=== PATIENT | female | born 1955 | race Caucasian/White ===

== ENCOUNTER → 2018-01-03 07:52 | Outpatient (CLI) | payer BC, SELFPAY ==
[2018-01-03 10:05] LABS: Absolute Lymphocyte Count 1.72 X10^3/ul (0.83-4.51); Absolute Neutrophil Count 1.9 X10^3/uL (2.0-7.7); Basophil# 0.02 X10^3/uL; Basophil% 0.5 % (0-1); Eosinophil# 0.15 X10^3/uL; Eosinophils% 3.5 % (0-5); Hematocrit 40.8 % (37-47); Hemoglobin 13.7 g/dl (12.0-15.0); Lymphocyte # 1.72 X10^3/ul (4.0); Lymphocyte % 40.4 % (19-41); Mean Corp Hgb Conc 33.6 g/gl (32-36); Mean Corpuscular Hgb 31.1 pg (27.0-32.0); Mean Corpuscular Volume 92.7 fL (81-99); Mean Platelet Vol. 10.6 fl (6.2-12.0); Monocyte# 0.43 X10^3/uL; Monocyte% 10.1 % (0-10); Neutrophil # 1.94 X10^3/uL (2.7-7.7); Neutrophil % 45.5 % (47-70); Platelet Count 257 K/mm3 (150-450); RBC Distribution Width CV 12.2 % (11.6-14.6); RBC Distribution Width SD 40.7 fl (35.1-43.9); White Blood Count 4.3 K/mm3 (4.4-11.0)
[2018-01-03 10:07] LABS: POSITIVE COUNT NO; POSITIVE DIFFERENTIAL NO; POSITIVE MORPHOLOGY NO
[2018-01-03 11:40] LABS: ALB/GLOB Ratio 1.2 RATIO (0.9-2.4); AST(SGOT) 16 U/L (15-37); Alanine Aminotransfer ALT/SGPT 29 U/L (13-56); Albumin, Serum 3.9 g/dL (3.2-5.0); Alkaline Phosphatase 58 U/L (45-117); Anion Gap 6 (5-15); BUN 21 mg/dL (7-18); BUN/Creat Ratio 31.9 RATIO (10-20); Chloride 108 mmol/L (98-107); Cholesterol 164 mg/dL (200); Creatinine, Serum 0.66 mg/dL (0.55-1.02); EST Glomerular Filtration Rate 97 mL/min (>60); Est Glom Filt Rate - Afr Amer 117 mL/min (>60); Folates, (Folic Acid) > 100.00 ng/mL (3.1-55.4); Globulin 3.3 g/dL (2.2-4.2); Glucose 82 mg/dL (74-106); High Density Lipoprotein 72 mg/dL; Potassium 3.8 mmol/L (3.5-5.1); Protein, Total 7.2 g/dL (6.4-8.2); Sodium Level 144 mmol/L (136-145); Triglycerides 66 mg/dL; Very Low Density Lipoprotein 13 mg/dL (5-40)
== END ==
PROVIDERS: Family Provider Pediatrics; PCP Pediatrics; Visit Provider Pediatrics
DX: D72.819 Decreased white blood cell count, unspecified (principal); R53.83 Other fatigue; Z13.220 Encounter for screening for lipoid disorders
CPT/HCPCS: 36415; 80053; 80061; 82746; 85025

== ENCOUNTER → 2018-01-04 08:24 | Outpatient (CLI) | payer BC, SELFPAY ==
[2018-01-04 09:54] LABS: Thyroid Stim Hormone (TSH) 0.07 uIU/mL (0.358-3.74)
== END ==
PROVIDERS: Family Provider Pediatrics; PCP Pediatrics
DX: E89.0 Postprocedural hypothyroidism (principal)
CPT/HCPCS: 84443

== ENCOUNTER 2019-09-09 16:05 | Emergency (ER) | payer BC, SELFPAY ==
[2019-09-09] VITALS (7 sets, daily range): BP systolic 105–183; BP diastolic 67–99; PULSE 49–71; RESP 16–23; TEMP 36.7; O2SAT 95–100; BMI 28.6
--- NOTE | 2019-09-09 16:19 | EKG12_ITS ---
Test Reason : CP Blood Pressure : / mmHG Vent. Rate : 063 BPM Atrial Rate : 063 BPM P-R Int : 176 ms QRS Dur : 092 ms QT Int : 468 ms P-R-T Axes : 060 003 046 degrees QTc Int : 478 ms Normal sinus rhythm Normal ECG Confirmed by MARÍA BRYANT, NINOSKA ([id number]), desk editor MARÍA VIDALES ([id number] on 09/11/2019 11:05:02 AM Referred By: ALVERTO Confirmed By:NINOSKA DANIEL MD
--- NOTE | 2019-09-09 16:21 | ED.DCSUM_ITS ---
- ER Visit Summary Date of Service: 09/09/19 Chief Complaint: Chest pain History of Present Illness: The patient is a 64 F who presents with chest pain that began approximately 1 and 1/2 hours prior to arrival. Patient states she was sitting at work when the pain began. Patient states the pain is over the lower substernal area. Patient states the pain is worse when she sits and better when she lays flat. Patient admits to nausea but denies any vomiting. Patient admits to some shortness of breath. Patient denies any diaphoresis. Patient denies any cough or fevers. Patient denies any cardiac risk factors. Patient states she did have a recent travel to [place] 1-2 to 2 months ago. Physical Examination: Vital signs are stable except for an elevated blood pressure 183/99. Patient is afebrile. Patient is in no acute distress. Oral mucosa is pink and moist. Neck is supple. Trachea is midline. There is no JVD noted. Heart was regular rate and rhythm. Lungs are clear and equal bilaterally. Abdomen is soft. Bowel sounds are normal. There is some mild epigastric tenderness. There is no rebound or guarding noted. Cranial nerves II through XII are intact. There are no focal motor or sensory deficits noted. Test Results: EKG showed normal sinus rhythm with a rate of 63. There are no acute ST or T wave changes noted. CBC and basic metabolic profile were within normal limits. Lipase was normal. Troponin was normal. Portable chest x-ray was obtained. There is no acute cardiopulmonary process. CTA of the chest was obtained. There is no pulmonary embolism noted. There is no aortic dissection noted. There is a small hiatal hernia. This was interpreted by the radiologist and reviewed by myself. Emergency Department Course and Treatment: Patient was given aspirin and nitroglycerin here. Patient felt better after nitroglycerin. Patient has a HEART score of 3. Patient is at low risk for acute cardiac event. Since her symptoms began only 1-1/2 hours prior to arrival a delta troponin was obtained. This was normal. Patient was instructed to follow-up with her primary care physician in 5 to 7 days. Patient understood and was agreeable with the plan. All questions were answered. Disposition: Discharge home Impression: Chest pain This note was generated with [employer] dictation software. It may contain incorrect words, spelling, and punctuation that were not noted in review of the chart prior to signing ED Disposition - Plan for ED Patient: Disposition: Home or Assisted Living Diagnosis: Chest pain Instructions: CHEST PAIN, Uncertain Cause Referrals: La Melendez MD [Primary Care Provider] - 3-5 Days
[2019-09-09 16:30] LABS: Absolute Lymphocyte Count 2.57 X10^3/uL (0.83-4.51); Absolute Neutrophil Count 2.9 X10^3/uL (2.0-7.7); Basophil# 0.03 X10^3/uL; Basophil% 0.5 % (0-1); Eosinophil# 0.19 X10^3/uL; Hematocrit 42.3 % (37-47); Hemoglobin 13.9 g/dL (12.0-15.0); Lymphocyte # 2.57 X10^3/ul (4.0); Lymphocyte % 40.9 % (19-41); Mean Corp Hgb Conc 32.9 g/dL (32-36); Mean Corpuscular Hgb 30.8 pg (27.0-32.0); Mean Corpuscular Volume 93.6 fL (81-99); Mean Platelet Vol. 10.2 fl (6.2-12.0); Monocyte# 0.61 X10^3/uL; Monocyte% 9.7 % (0-10); NRBC Flagged by Analyzer 0 % (0-5); Neutrophil # 2.86 X10^3/uL (2.7-7.7); Neutrophil % 45.6 % (47-70); Platelet Count 291 K/mm3 (150-450); RBC Distribution Width CV 11.9 % (11.6-14.6); RBC Distribution Width SD 41.1 fl (35.1-43.9); Red Blood Count 4.52 M/mm3 (4.2-5.4); White Blood Count 6.3 K/mm3 (4.4-11.0)
[2019-09-09] MEDS: Aspirin 81 MG TAB.CHEW 324 MG PO (16:35)
--- NOTE | 2019-09-09 16:35 | RAD_ITS ---
STUDY: X-RAY CHEST REASON FOR EXAM: Female, 64 years old. Chest pain TECHNIQUE: 1 view COMPARISON: None. FINDINGS: The lungs are clear and expanded. There is no demonstrated pleural abnormality. Normal size heart. Normal mediastinum and duane. Normal visualized pulmonary arteries. Mild elongation of the thoracic aorta. There are diffuse degenerative changes of the visualized thoracic spine. Normal visualized ribs, clavicles, and shoulders. Surgical clips at the base of the neck. RAD/Chest 1 View (Portable) IMPRESSION: No acute cardiopulmonary findings. Negative for consolidation, atelectasis, pleural effusion or cardiomegaly. Electronically Signed: Lisa Roberts MD at 17:02 EST , Service support ,
[2019-09-09] MEDS: Nitroglycerin SL (ED/IMG/CATH) 0.4 MG TABLET SUBLINGUAL (16:36)
[2019-09-09 16:48] LABS: Anion Gap 5 (5-15); BUN 17 mg/dL (7-18); Calcium,Total 9.3 mg/dL (8.5-10.1); Chloride 105 mmol/L (98-107); Creatinine, Serum 0.77 mg/dL (0.55-1.02); EST Glomerular Filtration Rate 80 mL/min (>60); Est Glom Filt Rate - Afr Amer 97 mL/min (>60); Glucose 101 mg/dL (74-106); Lipase 151 U/L (73-393); Potassium 3.6 mmol/L (3.5-5.1); Sodium Level 140 mmol/L (136-145)
--- NOTE | 2019-09-09 17:18 | CT_ITS ---
STUDY: CTA CHEST REASON FOR EXAM: Female, 64 years old. Substernal chest pain. RADIATION DOSAGE (If Supplied By Facility): CTDIvol = ( 11.96 ) mGy, DLP = ( 347.90 ) mGycm TECHNIQUE: The examination was performed with the intravenous administration of IV Isovue 370 75ml. Post-processing of the angiographic images was performed, with multiplanar reformation and 3D reconstruction. Individualized dose optimization techniques were used for this CT. COMPARISON: Portable chest radiograph of September 09, 2019 FINDINGS: Normal enhancement of the main pulmonary artery and right and left pulmonary arteries. Normal enhancement of the bilateral peripheral pulmonary arteries. There is no demonstrated pulmonary embolism. Mild plaque in the elongation of the thoracic aorta. Normal heart and pericardium. Minimal coronary calcification. Small hiatal hernia. Normal hilar regions. Moderate bibasilar dependent atelectatic changes. Negative for pleural effusion. Normal chest wall structures. There are degenerative changes of thoracic spine. Normal visualized upper abdomen. CT/CTA Chest W/WO Contrast IMPRESSION: Negative for pulmonary embolus. Mild plaque and elongation of the thoracic aorta. Normal cardiac size without pericardial effusion. Minimal coronary calcifications. Small hiatal hernia. Moderate posterior atelectatic changes. Electronically Signed: Lisa Roberts MD at 17:48 EST , Service support ,
== END 2019-09-09 20:15 | disposition home or self-care (01) ==
PROVIDERS: Emergency Provider Emergency Medicine; Family Provider Pediatrics; PCP Pediatrics
DX: R07.89 Other chest pain (principal); R06.00 Dyspnea, unspecified; M54.9 Dorsalgia, unspecified; K44.9 Diaphragmatic hernia without obstruction or gangrene; E03.9 Hypothyroidism, unspecified; Z79.899 Other long term (current) drug therapy
CPT/HCPCS: 71045; 71275; 80048; 83690; 84484; 85025; 93005; 99285; Q9967; A4216

== ENCOUNTER → 2019-09-15 07:42 | Outpatient (CLI) | payer BC, SELFPAY ==
[2019-09-09 16:06] VITALS: BMI 28.6
[2019-09-15 10:42] LABS: ALB/GLOB Ratio 1.2 RATIO (0.9-2.4); AST(SGOT) 20 U/L (15-37); Alanine Aminotransfer ALT/SGPT 36 U/L (13-56); Albumin, Serum 4.1 g/dL (3.2-5.0); Alkaline Phosphatase 57 U/L (45-117); Anion Gap 3 (5-15); BUN 17 mg/dL (7-18); BUN/Creat Ratio 21.1 RATIO (10-20); Calcium,Total 9.4 mg/dL (8.5-10.1); Chloride 108 mmol/L (98-107); Cholesterol 173 mg/dL (200); EST Glomerular Filtration Rate 76 mL/min (>60); Est Glom Filt Rate - Afr Amer 92 mL/min (>60); Globulin 3.5 g/dL (2.2-4.2); Glucose 86 mg/dL (74-106); High Density Lipoprotein 63 mg/dL; Potassium 4.2 mmol/L (3.5-5.1); Protein, Total 7.6 g/dL (6.4-8.2); Sodium Level 141 mmol/L (136-145); Triglycerides 73 mg/dL; Very Low Density Lipoprotein 15 mg/dL (5-40)
== END ==
PROVIDERS: Family Provider Pediatrics; PCP Pediatrics; Referring Provider Pediatrics; Visit Provider Pediatrics
DX: R07.9 Chest pain, unspecified (principal)
CPT/HCPCS: 36415; 80053; 80061

== ENCOUNTER → 2019-09-22 09:00 | Outpatient (CLI) | payer BC, SELFPAY ==
[2019-09-09 16:06] VITALS: BMI 28.6
[2019-09-21 13:42] VITALS: BMI 28.2
--- NOTE | 2019-09-22 09:05 | US_ITS ---
STUDY: ABDOMINAL ULTRASOUND - RIGHT UPPER QUADRANT REASON FOR VISIT: Female, 64 years old epigastric pain TECHNIQUE: Ultrasound evaluation of the right upper quadrant was performed with real-time and static pittman-scale imaging. TECHNICAL QUALITY: Adequate. COMPARISON: None. FINDINGS: Liver: The liver measures 14.1 cm. There is diffusely increased echogenicity of the liver with focal fatty sparing.. The bile ducts are within normal limits. There is hepatic color flow. The direction of portal flow is hepatopetal. There is no demonstrated mass lesion. Gallbladder: Normal distended gallbladder. The gallbladder wall measures 2.6 mm. There is a negative sonographic Manriquez''s sign. There is no pericholecystic fluid. There is a large solitary stone. Common Bile Duct (C.B.D.): The common bile duct measures 5.6 mm. Pancreas: Normal size of the head, body and tail of the pancreas. There is normal echogenicity of the pancreas. There is no demonstrated pancreatic mass or cyst. Right Kidney: Normal size of the right kidney. The right kidney measures 10.8 x 4.5 x 4.1 cm. Normal renal cortex. The right cortex measures 1.5 cm. There is no demonstrated renal mass or cyst. There is no right hydronephrosis. US/Abdomen Limited IMPRESSION: Fatty infiltrated liver. Cholelithiasis without definitive sonographic evidence for acute cholecystitis however this may be further assessed with HIDA scan if clinically warranted Electronically Signed: Gerard Vasquez MD at 18:40 EST , Service support ,
== END ==
PROVIDERS: Family Provider Pediatrics; PCP Pediatrics; Referring Provider Pediatrics; Visit Provider Pediatrics
DX: R10.9 Unspecified abdominal pain (principal)
CPT/HCPCS: 76705

== ENCOUNTER → 2019-10-15 06:42 | Outpatient (CLI) | payer BC, SELFPAY ==
[2019-09-21 13:42] VITALS: BMI 28.2
--- NOTE | 2019-10-15 06:43 | ECHOD_ITS ---
Reason For Study: chest pain Procedure This was a 2D Doppler, Color Flow transthoracic echocardiogram. The study was technically difficult. Contrast injection was performed. Exam performed in department. Left Ventricle Normal LV size. The estimated ejection fraction is 60 %. No evidence for diastolic dysfunction. No regional wall motion abnormalities noted. Right Ventricle Normal RV size. Normal systolic function. Atria Normal left atrium. Normal right atrium. No doppler evidence for ASD. Mitral Valve There is no mitral valve stenosis. No mitral valve insufficiency. Tricuspid Valve There is no tricuspid stenosis. Unable to estimate RV systolic pressure due to insufficient tricuspid regurgitant envelope. Trivial tricuspid valve insufficiency. Aortic Valve Trisinus/trileaflet aortic valve. There is no aortic stenosis. No aortic valve insufficiency. Pulmonic Valve There is no pulmonic valvular stenosis. No pulmonic valve insufficiency. Great Vessels Normal aortic root. Pericardium/Pleural No pericardial effusion. MMode/2D Measurements & Calculations LVIDd: 4.6 cm IVSd: 0.85 cm Ao root diam: 3.5 cm LVIDs: 2.7 cm LVPWd: 0.88 cm RVDd: 3.5 cm FS: 41.5 % LAV(MOD-sp4): 23.8 ml LA A4 area: 11.0 cm2 LA dimension(2D): 2.9 cm RA A4 area: 13.6 cm2 Time Measurements MV dec time: 0.22 sec Doppler Measurements & Calculations MV E max omero: 50.8 cm/sec Lat Peak E' Omero: 6.1 cm/sec Med Peak E' Omero: 5.8 cm/sec MV A max omero: 68.2 cm/sec E/E' lat: 8.3 E/E' med: 8.8 MV E/A: 0.75 Ao V2 max: 90.4 cm/sec LV V1 max: 75.8 cm/sec PA V2 max: 71.6 cm/sec Ao max P.3 mmHg LV V1 max P.3 mmHg TR max omero: 241.8 cm/sec TR max P.4 mmHg Interpretation Summary The estimated ejection fraction is 60 %. No evidence for diastolic dysfunction. Ordering Physician: Terri^Dallin^^^ Referring Physician: La Melendez Performed By: Cordelia Zapien, SOTO, RVT
--- NOTE | 2019-10-16 11:18 | STRESSREP_ITS ---
Stress Test Report Date: 10/15/2019 Procedure: Exercise tolerance test/imaging study Indications: Chest pain Consent: Per the patient Procedure: The patient exercised on a Torres protocol for 6 minutes and 30 seconds achieving a peak heart rate of 144 bpm (92 % predicted maximal heart rate) with a peak blood pressure 132/84 mmHg and a peak MET capacity of 7.7 METs. The baseline ECG demonstrated normal sinus rhythm. The peak exercise ECG demonstrated sinus tachycardia with about [address] depressions in the inferior and lateral leads. EKG during recovery revealed return of ST segments to baseline [There were no cardiac dysrhythmias pretest, during exercise, or recovery]. The functional capacity was considered normal for age. Patient had 4 x 10 chest pain and chest tightness in the upper mid chest. The examination was discontinued secondary to dyspnea. Impression: 1. Technically adequate (percent predicted maximal heart rate greater than 85%) exercise tolerance test 2. Stress test is negative for exercise-induced EKG changes of ischemia 3. The test test is positive for exercise-induced chest pain 4. Functional capacity is normal for age 5. Nuclear images pending Myocardial perfusion imaging study: Technique: The patient was injected with 10.8 mCi of technetium 99m Cardiolite and subsequently rest SPECT Cardiolite nuclear imaging was obtained in the horizontal long, vertical long, and short axis views. The patient exercised on a Torres protocol. Please see above for details. The patient was injected with 32.6 mCi of technetium 99m Cardiolite and subsequently stress SPECT Cardiolite nuclear imaging was obtained in the horizontal long, vertical long, and short axis views. A gated Cardiolite study at peak stress was obtained. Interpretation: Rest and stress SPECT Cardiolite nuclear imaging status post realignment, normalization, and attenuation correction, demonstrates normal myocardial radioisotope uptake. The gated Cardiolite study demonstrates no significant regional wall motion abnormalities. The reported LVEF is greater than 70 %. Impression: 1. There is no evidence of significant ischemia or infarction. However the test was positive for exercise-induced chest pain as described above. 2. The gated Cardiolite study reports an LVEF of greater than 70 %. This note was generated with [employer] software. It may contain incorrect words, spelling, and punctuation that were not noted in checking the note before signing.
== END ==
PROVIDERS: Family Provider Pediatrics; PCP Pediatrics; Referring Provider Specialist; Visit Provider Specialist
DX: R07.9 Chest pain, unspecified (principal)
CPT/HCPCS: 78452; 93017; 93306; A9500; A4216

== ENCOUNTER → 2021-03-20 08:05 | Outpatient (CLI) | payer MEDICARE, OTHER, SELFPAY ==
[2019-10-20 11:04] VITALS: BMI 28.4
[2021-03-20 10:18] LABS: Absolute Lymphocyte Count 1.81 X10^3/uL (0.83-4.51); Absolute Neutrophil Count 2.3 X10^3/uL (2.0-7.7); Basophil# 0.04 X10^3/uL; Basophil% 0.8 % (0-1); Eosinophil# 0.24 X10^3/uL; Eosinophils% 4.9 % (0-5); Hematocrit 42.5 % (37-47); Hemoglobin 13.9 g/dL (12.0-15.0); Lymphocyte # 1.81 X10^3/ul (0.83-4.51); Lymphocyte % 37.2 % (19-41); Mean Corp Hgb Conc 32.7 g/dL (32-36); Mean Corpuscular Hgb 30.5 pg (27.0-32.0); Mean Corpuscular Volume 93.2 fL (81-99); Mean Platelet Vol. 10.5 fl (6.2-12.0); Monocyte# 0.52 X10^3/uL; Monocyte% 10.7 % (0-10); NRBC Flagged by Analyzer 0 % (0-5); Neutrophil # 2.25 X10^3/uL (2.7-7.7); Neutrophil % 46.2 % (47-70); Platelet Count 259 K/mm3 (150-450); RBC Distribution Width CV 12.2 % (11.6-14.6); RBC Distribution Width SD 41.5 fl (35.1-43.9); Red Blood Count 4.56 M/mm3 (4.2-5.4); White Blood Count 4.9 K/mm3 (4.4-11.0)
[2021-03-20 10:26] LABS: T3 Total - Triiodothyronine 1.11 ng/mL (0.6-1.81)
[2021-03-20 10:40] LABS: ALB/GLOB Ratio 1.1 RATIO (0.9-2.4); AST(SGOT) 24 U/L (15-37); Alanine Aminotransfer ALT/SGPT 47 U/L (13-56); Albumin, Serum 3.9 g/dL (3.2-5.0); Alkaline Phosphatase 63 U/L (45-117); Anion Gap 7 (5-15); BUN 21 mg/dL (7-18); BUN/Creat Ratio 27.4 RATIO (10-20); Calcium,Total 9.1 mg/dL (8.5-10.1); Chloride 106 mmol/L (98-107); Cholesterol 187 mg/dL (200); Creatinine, Serum 0.77 mg/dL (0.55-1.02); EST Glomerular Filtration Rate 80 mL/min (>60); Est Glom Filt Rate - Afr Amer 97 mL/min (>60); Globulin 3.4 g/dL (2.2-4.2); Glucose 92 mg/dL (74-106); High Density Lipoprotein 70 mg/dL; Potassium 4.1 mmol/L (3.5-5.1); Protein, Total 7.3 g/dL (6.4-8.2); Sodium Level 141 mmol/L (136-145); T4 Free Direct 1.24 ng/dL (0.76-1.46); Thyroid Stim Hormone (TSH) 0.89 uIU/mL (0.358-3.74); Triglycerides 81 mg/dL; Very Low Density Lipoprotein 16 mg/dL (5-40)
== END ==
PROVIDERS: PCP Pediatrics; Referring Provider Pediatrics; Visit Provider Pediatrics
DX: Z00.00 Encounter for general adult medical examination without abnormal findings (principal); E55.9 Vitamin D deficiency, unspecified; R53.83 Other fatigue; R94.5 Abnormal results of liver function studies; D72.819 Decreased white blood cell count, unspecified; E89.0 Postprocedural hypothyroidism; Z13.220 Encounter for screening for lipoid disorders
CPT/HCPCS: 36415; 80053; 80061; 84439; 84443; 84480; 85025

== ENCOUNTER → 2021-03-30 09:44 | Outpatient (CLI) | payer MEDICARE, OTHER, SELFPAY ==
[2019-10-20 11:04] VITALS: BMI 28.4
--- NOTE | 2021-03-30 09:47 | BD_ITS ---
STUDY: DUAL ENERGY X-RAY ABSORPTIOMETRY / DXA REASON FOR EXAM: Female, 65 years old. [id number]. The patient is postmenopausal. TECHNIQUE: Bone Mineral Density (BMD) measurements of lumbar spine and bilateral hips were obtained. COMPARISON: None. FINDINGS: Lumbar Spine (L1-L4): g/cm2 (1.269) / T-score (0.7) / Z-score (2.3) Findings are suggestive of normal bone density with a low fracture risk. Left Femur Total: g/cm2 (1.001) / T-score (-0.1) / Z-score (1.2) Left Femoral Neck: g/cm2 (0.967) / T-score (-0.5) / Z-score (1.0) Right Femur Total: g/cm2 (0.988) / T-score (-0.2) / Z-score (1.1) Right Femoral Neck: g/cm2 (0.900) / T-score (-1.0) / Z-score (0.5) BD/Dexa Bone Density Study IMPRESSION: The patient is considered normal as outlined below according to World Mario Organization (WHO) criteria with a low fracture risk. Reference Information: The T-score is the number of standard deviations above or below the standard which is normal for young adults at their peak bone mineral density. The World Health Organization (WHO) interprets the T-scores as follows: Above -1 Normal bone density Between -1 and -2.5 Osteopenia Equal to / or below -2.5 Osteoporosis As a practical clinical guideline, osteopenia may be graded as follows: Mild -1 through -1.5 Moderate -1.6 through -2.0 Severe -2.1 through -2.4 The Z-score is the number of standard deviations above or below age-matched controls. A Z-score of less than -1.5 would be considered abnormal. References: 1. NIH Osteoporosis and Related Bone Diseases www osteo.org 2. International Society for Clinical Densitometry www iscd.org 3. National Osteoporosis Foundation www nof.org Electronically Signed: Chauncey Wallace MD at 15:33 EDT , Service support ,
== END ==
PROVIDERS: PCP Pediatrics; Referring Provider Pediatrics; Visit Provider Pediatrics
DX: Z78.0 Asymptomatic menopausal state (principal)
CPT/HCPCS: 77080

== ENCOUNTER 2021-05-22 14:53 | Emergency (ER) | payer MEDICARE, OTHER, SELFPAY ==
[2019-10-20 11:04] VITALS: BMI 28.4
[2021-05-22 14:56] VITALS: BP 144/94; PULSE 73; RESP 14; TEMP 35.7; O2SAT 100
--- NOTE | 2021-05-22 15:57 | EKG12_ITS ---
Test Reason : CHEST PAIN Blood Pressure : / mmHG Vent. Rate : 067 BPM Atrial Rate : 067 BPM P-R Int : 176 ms QRS Dur : 090 ms QT Int : 448 ms P-R-T Axes : 052 009 041 degrees QTc Int : 473 ms Normal sinus rhythm Nonspecific ST abnormality Abnormal ECG Confirmed by SOLEDAD BRYANT, YOGI ([id number]), business editor COLBY FOX ([id number]) on 05/24/2021 10:39:29 AM Referred By: Confirmed By:YOGI ROWE MD
--- NOTE | 2021-05-22 16:07 | RAD_ITS ---
HISTORY: chest pain. TECHNIQUE: XR Chest 1 View. # of images incl. paperwork: 1. COMPARISON: 09/09/2019. FINDINGS: CARDIOMEDIASTINAL STRUCTURES: Cardiac silhouette not enlarged. Mediastinal contour unremarkable. Surgical clips of the right thoracic inlet again seen. LUNGS: Radiographically clear. PLEURA: No pleural effusion or pneumothorax. OSSEOUS STRUCTURES: Degenerative change. RAD/Chest 1 View (Portable) IMPRESSION: No radiographic evidence of acute cardiopulmonary disease. at 1625 Reported and signed by: Jane Garcia MD Electronically Signed: Jane Garcia MD at 16:24 EDT Tel , Service support ,
[2021-05-22 16:31] VITALS: BP 131/94; PULSE 61; RESP 20; O2SAT 99
[2021-05-22 16:43] LABS: Absolute Lymphocyte Count 1.61 X10^3/uL (0.83-4.51); Absolute Neutrophil Count 2.2 X10^3/uL (2.0-7.7); Basophil# 0.05 X10^3/uL; Basophil% 1.1 % (0-1); Eosinophil# 0.15 X10^3/uL; Eosinophils% 3.3 % (0-5); Hematocrit 36.1 % (37-47); Hemoglobin 11.8 g/dL (12.0-15.0); Lymphocyte # 1.61 X10^3/ul (0.83-4.51); Lymphocyte % 35.8 % (19-41); Mean Corp Hgb Conc 32.7 g/dL (32-36); Mean Corpuscular Hgb 31.3 pg (27.0-32.0); Mean Corpuscular Volume 95.8 fL (81-99); Mean Platelet Vol. 11.1 fl (6.2-12.0); Monocyte# 0.46 X10^3/uL; Monocyte% 10.2 % (0-10); NRBC Flagged by Analyzer 0 % (0-5); Neutrophil # 2.22 X10^3/uL (2.7-7.7); Neutrophil % 49.4 % (47-70); Platelet Count 306 K/mm3 (150-450); RBC Distribution Width CV 13.2 % (11.6-14.6); RBC Distribution Width SD 44.4 fl (35.1-43.9); Red Blood Count 3.77 M/mm3 (4.2-5.4); White Blood Count 4.5 K/mm3 (4.4-11.0)
--- NOTE | 2021-05-22 16:44 | EDS_ITS ---
HPI History of Present Illness Chief Complaint: Chest Pain Detail of Chief Complaint: Shortness of breath Informant: patient and spouse/S.O. Onset/Context/Timing Onset: Days Activity at onset: gradual Timing: Intermittent Current Severity: Mild Maximum Severity: Mild Narrative Narrative: 65-year-old female history of hypothyroidism and exercise-induced asthma. She just has not felt well last several days. States she feels crummy. She has exertional shortness of breath. No chest pain. No history of DVT or PE. No recent travel, surgery or immobilization. No leg pain or swelling. No pleuritic pain. No hemoptysis. She had a cardiac work-up a year and a half ago in October 2019 stress test at that time was negative. Prior Similar Symptoms: Yes Recent Illness/Hospitalization: No CVD Risk Factors: Negative for Hypertension, Diabetes, Hypercholesterolemia and Smoking PE Risk Factors: Negative for Recent Travel/Surgery, Recent Immobilization, Prior DVT or PE, Cancer and OCP + Smoking + >/=35 TAD Risk Factors: Negative for Marfan's Syndrome, Hypertension and Family History [facility] Medical History (Updated 05/22/21 @ 20:[address] Arian Cedeno MD) Asthma Chest pain Depression Hypothyroidism Vitamin B12 deficiency Vitamin D deficiency Home Medications calcium carbonate 1,000 mg PO DAILY 09/09/19 [History Last Taken Unknown] levothyroxine 100 mcg PO DAILY 09/09/19 [History Last Taken Unknown] loratadine 10 mg PO DAILY 09/09/19 [History Last Taken Unknown] albuterol sulfate 90 mcg/actuation aerosol inhaler 2 puff INHALATION Q4H PRN g 09/18/19 [History Last Taken Unknown] multivitamin 1 tab PO DAILY 09/21/19 [History Last Taken Unknown] levomefolate 15 mg-algal oil 90.314 mg capsule 1 cap PO DAILY 10/20/19 [History Last Taken Unknown] Allergy/AdvReac Type Severity Reaction Status Date / Time No Known Allergies Allergy Verified 05/22/21 14:56 Surgical History History of appendectomy History of hysterectomy History of retropharyngeal abscess History of salpingectomy Social History Smoking Status: Never smoker alcohol intake: current alcohol intake frequency: 0-2 drinks per day Alcohol type: wine substance use type: does not use caffeine: Yes Type: coffee Number of servings: 2 ROS ROS ED ROS Narrative Denies recent illness. Review of Systems ROS Unobtainable: Denies due to encephalopathy Constitutional Constitutional ED: Denies chills or fever(s) Eyes Eyes: Denies none or change in vision ENT ENT ED: Denies ear pain or sore throat Cardiovascular Cardiovascular: Denies chest pain Respiratory/Chest Respiratory/Chest: Reports dyspnea and dyspnea on exertion; Denies cough or sputum Gastrointestinal Gastrointestinal: Denies abdominal pain, diarrhea, nausea or vomiting Genitourinary Genitourinary ED: Denies dysuria Musculoskeletal Musculoskeletal: Denies myalgias Integumentary Denies rash Neurologic Neurologic: Denies headache(s) Psychiatric Psychiatric: Denies depression Endocrine Endocrinology: Denies polyuria Hematologic/Lymphatic Hematologic/Lymphatic: Denies easy bruising Allergic/Immunologic Allergic/Immunologic ED: Denies urticaria EXAM Physical Exam Narrative Exam Narrative: 65-year-old female no acute distress vital signs stable afebrile pulse ox 100% on room air no signs hypoxia. H EENT exam unremarkable. Neck nontender no lymphadenopathy. Lungs clear to auscultation bilaterally. Heart regular rhythm no murmur. Abdomen soft nontender normal bowel sounds no peritoneal signs. Patient moving all 4 extremities. Has a nontender without edema or cords. Neurologically she is awake and alert with no focal motor deficits. Const Vital Signs: 05/22/21 14:56 05/22/21 16:31 05/22/21 18:00 Temperature 96.3 F L Temperature Source Temporal Pulse Rate 73 61 57 L Respiratory Rate 14 20 H 18 Blood Pressure 144/94 H 131/94 H 114/87 H Blood Pressure Mean 110 106 96 Pulse Ox 100 99 99 Oxygen Delivery Method Room Air Room Air Room Air Positive well nourished and well developed; Negative for obese or unkempt General Appearance ED: well developed and NAD; Negative for unkempt Nutritional Appearance: Negative for obese HEENT Reports moist mucous membranes normocephalic and atraumatic; Negative for trauma Eyes PERRL and EOMs intact bilaterally Neck no lymphadenopathy, supple and no JVD General: Negative for tenderness Chest Wall inspection of chest normal and palpation of chest normal Resp normal respiratory effort and clear to auscultation bilaterally Effort and Inspection: respiratory distress Auscultation: Negative for rales, rhonchi or wheezes Cardio regular rate, regular rhythm, S1 normal heart sound, S2 normal heart sound and no murmurs Rate: Negative for tachycardic Back/Spine no CVA tenderness General Back: Negative for CVA tenderness Extremity normal to inspection General Extremety ED: Negative for edema, pulses abnormal or tenderness General Extremity: Negative for edema or pulses abnormal Neuro oriented x3 Sensorium / Orientation: awake, alert, oriented to person and oriented to place Motor Exam: strength 5/5 throughout Psych mental status grossly normal Appearance: Negative for unkempt Skin no rashes or lesions noted and no wounds Heart Score History: Slightly/Non-Suspicious ECG: Normal Age: >/= 65 years Risk Factors: No Risk Factors Troponin: </= Normal Limit Score: 2 MDM MDM MDM Narrative Medical decision making narrative: Patient with dyspnea. This really Cardiac etiology nor does it sound like a PE and no PE risk factors. Exam is benign. She undergo cardiac work-up. Repeat exams patient is doing well last exam at 8:14 PM. I went over test results with her and her who is a retired physician. They will be discharged home with outpatient follow-up. Lab Data Attestation: I reviewed the patient's lab results. Lab results narrative: CBC normal white count of 4. Hemoglobin 11.8. Patient just donated blood within the last week or so. Chemistries unremarkable gap 5 creatinine 0.6. Troponin III. D-dimer slightly elevated. A CTA was performed read by the radiologist as no acute findings. No PE. I did review the film and agree. Labs: Laboratory Results - last 24 hr 05/22/21 05/22/21 05/22/21 15:08 15:08 17:35 WBC 4.5 RBC 3.77 L Hgb 11.8 L Hct 36.1 L MCV 95.8 MCH 31.3 MCHC 32.7 RDW Std Deviation 44.4 H RDW Coeff of Alysha 13.2 Plt Count 306 MPV 11.1 Immature Gran % (Auto) 0.200 Neut % (Auto) 49.4 Lymph % (Auto) 35.8 Schuyler % (Auto) 10.2 H Eos % (Auto) 3.3 Baso % (Auto) 1.1 H Absolute Neuts (auto) 2.2 Absolute Lymphs (auto) 1.61 Nucleated RBC % 0 D-Dimer Quant (PE/DVT) 0.68 H* Sodium 140 Potassium 4.3 Chloride 106 Carbon Dioxide 29.0 Anion Gap 5 BUN 16 Creatinine 0.66 Estim Creat Clear Calc 79.55 Est GFR (MDRD) Af Amer 116 Est GFR (MDRD) Non-Af 96 BUN/Creatinine Ratio 24.4 H Glucose 112 H Calcium 9.3 Troponin I High Sens 3.3 Radiography Chest X-Ray - ED: 1 View, Read by ED Physician, Heart, Lungs, Mediastinum, Bony Structures, No Acute Disease and Chronic Changes Diagnostic Testing: Radiology Impression Chest X-Ray 05/22/21 16:07 IMPRESSION: No radiographic evidence of acute cardiopulmonary disease. at 1625 Reported and signed by: Jane Garcia MD Electronically Signed: Jane Garcia MD at 16:24 EDT Tel , Service support , Chest CTA 05/22/21 18:45 IMPRESSION: 1. No acute findings. No pulmonary embolism or arterial dissection. 2. Hepatic steatosis. Electronically Signed: So Gray MD at 20:04 EDT Tel , Service support , Rhythm Strip Rhythm Strip: Sinus Rhythm Rate: 67 Ectopy: None EKG Initial EKG: Attestation: I personally reviewed and interpreted this EKG as follows: Interpretation: Sinus Rhythm and No Acute Injury Pattern Comments: Normal sinus rhythm rate of 67 no acute signs of KS or ischemia. Discharge Plan Triage Chief Complaint: Chest Pain ED Provider: Arian Cedeno Dx/Rx/DC Orders Clinical Impression: Acute dyspnea Prescriptions: No Action multivitamin [Daily Multi-Vitamin] Tablet 1 tab PO DAILY RF: 0 albuterol sulfate [ProAir HFA] 90 mcg/actuation HFA aerosol inhaler 2 puff INHALATION Q4H PRNRF: 0 levomefolate-algal oil [Deplin (algal oil)] 15-90.314 mg capsule 1 cap PO DAILY RF: 0 levothyroxine 100 MCG tablet 100 mcg PO DAILY RF: 0 calcium carbonate 500 MG tablet,chewable 1,000 mg PO DAILY RF: 0 loratadine 10 MG tablet 10 mg PO DAILY RF: 0 Primary Care Provider: La Melendez Referrals: La Melendez MD [Primary Care Provider] - 3-5 Days Activity Restrictions/Additional Instructions: Follow-up with your primary care physician. Your blood counts electrolytes heart enzymes all were unremarkable tonight. Your EKG is normal. And your chest x-ray and CAT scan of chest were normal with no signs of any pneumonia nor any blood clot. Disposition Disposition: Home, Self Care
[2021-05-22 17:09] LABS: Anion Gap 5 (5-15); BUN 16 mg/dL (7-18); BUN/Creat Ratio 24.4 RATIO (10-20); Calcium,Total 9.3 mg/dL (8.5-10.1); Chloride 106 mmol/L (98-107); Creatinine, Serum 0.66 mg/dL (0.55-1.02); EST Glomerular Filtration Rate 96 mL/min (>60); Est Glom Filt Rate - Afr Amer 116 mL/min (>60); Estimated Creatinine Clearance 79.55 ml/min; Glucose 112 mg/dL (74-106); Potassium 4.3 mmol/L (3.5-5.1); Sodium Level 140 mmol/L (136-145); Troponin-I HS 3.3 pg/mL (3.0-53.7)
[2021-05-22 18:00] VITALS: BP 114/87; PULSE 57; RESP 18; O2SAT 99
--- NOTE | 2021-05-22 18:45 | CT_ITS ---
STUDY: CTA CHEST REASON FOR EXAM: Female, 65 years old. dyspnea RADIATION DOSAGE (If Supplied By Facility): CTDIvol = ( 10.23 ) mGy, DLP = ( 373.37 ) mGycm TECHNIQUE: The examination was performed with the intravenous administration of IV 100mL Isovue-370. Post-processing of the angiographic images was performed, with multiplanar reformation and 3D reconstruction. Individualized dose optimization techniques were used for this CT. COMPARISON: 09/09/2019. FINDINGS: Heart size and pericardium are unremarkable. The aorta is normal in caliber. No aneurysm or dissection. There is no mediastinal mass or adenopathy. There is no hilar or axillary adenopathy. There is no evidence of pulmonary embolus. There is no pleural effusion. There is no pulmonary consolidation. Diffuse fatty infiltration of the liver. No focal lesion. There is no osseous abnormality. CT/CTA Chest W/WO Contrast IMPRESSION: 1. No acute findings. No pulmonary embolism or arterial dissection. 2. Hepatic steatosis. Electronically Signed: So Gray MD at 20:04 EDT Tel , Service support ,
[2021-05-22 19:11] LABS: D-Dimer Quantitative (DVT/PE) 0.68 FEU/ug/m (0.27-0.49)
[2021-05-22 20:49] VITALS: BP 134/95; PULSE 69; RESP 18; O2SAT 100
== END 2021-05-22 20:49 | disposition home or self-care (01) ==
PROVIDERS: Emergency Provider Emergency Medicine; PCP Pediatrics
DX: R06.00 Dyspnea, unspecified (principal); R79.89 Other specified abnormal findings of blood chemistry; E03.9 Hypothyroidism, unspecified; F32.9 Major depressive disorder, single episode, unspecified; J45.990 Exercise induced bronchospasm; Z79.899 Other long term (current) drug therapy
CPT/HCPCS: 71045; 71275; 80048; 84484; 85025; 85379; 93005; 99285; Q9967; A4216

== ENCOUNTER → 2021-07-03 06:38 | Outpatient (CLI) | payer MEDICARE, OTHER, SELFPAY ==
--- NOTE | 2021-07-03 19:59 | STRESSREP ---
Stress Test Report Exercise myocardial perfusion stress test. 65-year-old lady with a history of chest discomfort. Stress protocol: Resting EKG demonstrates normal sinus rhythm with a rate of 65 bpm normal intervals are noted resting blood pressure is 112/74 mmHg. The patient exercised according to regular Torres protocol for total duration of 5 minutes. The maximum heart rate attained was 137 bpm which was 88% of max infected heart rate the patient completed 2 minutes into stage II of the Torres protocol. The maximum heart rate attained was 1 and 37 bpm which was 88% of maximum. Heart rate the maximum workload was 7 metabolic equivalents. At rest there were no ST or T wave changes noted suggest ischemia and at peak exercise upsloping ST changes were noted with did not meet the criteria for ischemia. No clinical angina was noted the test was terminated due to dyspnea and slight chest discomfort. The peak blood pressure was 142/80 mmHg. Myocardial perfusion protocol. 11.8 mCi of technetium 99m sestamibi was injected at rest. The patient exercised according to regular Torres protocol for 5 minutes and at peak exercise 34.3 mCi of technetium 99m sestamibi was injected stress images were obtained stress and rest images were reconstructed and compared in the short axis vertical long horizontal long axis. Gated images were also obtained for Perfusion SPECT analysis: Review of the stress images demonstrate normal uptake of tracer noted in all areas of the myocardium the resting images similarly demonstrate normal uptake of tracer noted in all areas of the myocardium. No areas of reversibility are noted suggest ischemia no previous infarct is noted. Gated SPECT analysis: The gated ejection fraction is 76%. Conclusion: Normal exercise myocardial perfusion stress test at a moderate workload. Preserved ejection fraction.
== END ==
PROVIDERS: PCP Pediatrics; Referring Provider Internal Medicine Cardiovascular Disease; Visit Provider Internal Medicine Cardiovascular Disease
DX: R07.9 Chest pain, unspecified (principal)
CPT/HCPCS: 78452; 93017; A9500; A4216

== ENCOUNTER 2022-01-23 14:05 | Outpatient (CLI) | payer MEDICARE, OTHER, SELFPAY ==
[2022-01-23 17:21] LABS: Absolute Lymphocyte Count 1.99 X10^3/uL (0.83-4.51); Absolute Neutrophil Count 2.8 X10^3/uL (2.0-7.7); Basophil# 0.02 X10^3/uL; Basophil% 0.4 % (0-1); Eosinophil# 0.21 X10^3/uL; Eosinophils% 3.8 % (0-5); Hemoglobin 13.9 g/dL (12.0-15.0); Lymphocyte # 1.99 X10^3/ul (0.83-4.51); Mean Corp Hgb Conc 33.9 g/dL (32-36); Mean Corpuscular Hgb 31.5 pg (27.0-32.0); Mean Platelet Vol. 10.6 fl (6.2-12.0); Monocyte# 0.53 X10^3/uL; Monocyte% 9.6 % (0-10); NRBC Flagged by Analyzer 0 % (0-5); Neutrophil # 2.76 X10^3/uL (2.7-7.7); Neutrophil % 49.8 % (47-70); Platelet Count 275 K/mm3 (150-450); RBC Distribution Width CV 11.9 % (11.6-14.6); RBC Distribution Width SD 41.1 fl (35.1-43.9); Red Blood Count 4.41 M/mm3 (4.2-5.4); White Blood Count 5.5 K/mm3 (4.4-11.0)
[2022-01-23 18:16] LABS: Thyroid Stim Hormone (TSH) 0.79 uIU/mL (0.358-3.74)
== END 2022-01-23 23:59 | disposition home or self-care (01) ==
PROVIDERS: PCP Pediatrics; Referring Provider Pediatrics; Visit Provider Pediatrics
DX: D50.9 Iron deficiency anemia, unspecified (principal); E89.0 Postprocedural hypothyroidism
CPT/HCPCS: 36415; 84443; 85025

== ENCOUNTER → 2022-03-23 | Outpatient (CLI) | payer MEDICARE, OTHER, SELFPAY ==
[2022-03-23 10:07] LABS: Absolute Lymphocyte Count 1.94 X10^3/uL (0.83-4.51); Absolute Neutrophil Count 2.6 X10^3/uL (2.0-7.7); Basophil# 0.04 X10^3/uL; Basophil% 0.7 % (0-1); Eosinophil# 0.27 X10^3/uL; Hematocrit 43.1 % (37-47); Hemoglobin 14.4 g/dL (12.0-15.0); Lymphocyte # 1.94 X10^3/ul (0.83-4.51); Lymphocyte % 36.3 % (19-41); Mean Corp Hgb Conc 33.4 g/dL (32-36); Mean Corpuscular Hgb 31.3 pg (27.0-32.0); Mean Corpuscular Volume 93.7 fL (81-99); Mean Platelet Vol. 10.5 fl (6.2-12.0); Monocyte# 0.48 X10^3/uL; NRBC Flagged by Analyzer 0 % (0-5); Neutrophil # 2.61 X10^3/uL (2.7-7.7); Neutrophil % 48.8 % (47-70); Platelet Count 259 K/mm3 (150-450); RBC Distribution Width CV 12.2 % (11.6-14.6); RBC Distribution Width SD 41.7 fl (35.1-43.9); White Blood Count 5.4 K/mm3 (4.4-11.0)
[2022-03-23 10:24] LABS: Vitamin D,25 Hydroxy 33.5 ng/mL
[2022-03-23 10:39] LABS: ALB/GLOB Ratio 1.1 RATIO (0.9-2.4); AST(SGOT) 24 U/L (15-37); Alanine Aminotransfer ALT/SGPT 61 U/L (13-56); Albumin, Serum 3.9 g/dL (3.2-5.0); Alkaline Phosphatase 52 U/L (45-117); Anion Gap 4 (5-15); BUN 19 mg/dL (7-18); BUN/Creat Ratio 22.5 RATIO (10-20); Calcium,Total 9.2 mg/dL (8.5-10.1); Chloride 109 mmol/L (98-107); Cholesterol 188 mg/dL (200); Creatinine, Serum 0.84 mg/dL (0.55-1.02); EST Glomerular Filtration Rate 72 mL/min (>60); Est Glom Filt Rate - Afr Amer 87 mL/min (>60); Free T3 2.5 pg/mL (2.18-3.98); Globulin 3.4 g/dL (2.2-4.2); Glucose 95 mg/dL (74-106); High Density Lipoprotein 61 mg/dL; Potassium 3.9 mmol/L (3.5-5.1); Protein, Total 7.3 g/dL (6.4-8.2); Sodium Level 143 mmol/L (136-145); T4 Free Direct 1.12 ng/dL (0.76-1.46); Triglycerides 116 mg/dL; Very Low Density Lipoprotein 23 mg/dL (5-40)
== END | disposition home or self-care (01) ==
LOC: MTLAB 07:24
PROVIDERS: PCP Pediatrics; Referring Provider Pediatrics; Visit Provider Pediatrics
DX: Z00.00 Encounter for general adult medical examination without abnormal findings (principal); E53.8 Deficiency of other specified B group vitamins; D72.819 Decreased white blood cell count, unspecified; E89.0 Postprocedural hypothyroidism; D50.9 Iron deficiency anemia, unspecified; E55.9 Vitamin D deficiency, unspecified; E04.1 Nontoxic single thyroid nodule
CPT/HCPCS: 36415; 80053; 80061; 82306; 84439; 84443; 84481; 85025

== ENCOUNTER → 2022-07-19 | Outpatient (CLI) | payer MEDICARE, OTHER, SELFPAY ==
[2022-07-19 10:28] LABS: ALB/GLOB Ratio 1.1 RATIO (0.9-2.4); AST(SGOT) 32 U/L (15-37); Alanine Aminotransfer ALT/SGPT 62 U/L (13-56); Albumin, Serum 3.8 g/dL (3.2-5.0); Alkaline Phosphatase 61 U/L (45-117); Anion Gap 3 (5-15); BUN 18 mg/dL (7-18); Calcium,Total 9.3 mg/dL (8.5-10.1); Chloride 109 mmol/L (98-107); Cholesterol 176 mg/dL (200); Creatinine, Serum 0.75 mg/dL (0.55-1.02); EST Glomerular Filtration Rate 82 mL/min (>60); Est Glom Filt Rate - Afr Amer 99 mL/min (>60); Globulin 3.6 g/dL (2.2-4.2); Glucose 93 mg/dL (74-106); High Density Lipoprotein 59 mg/dL; Potassium 4.1 mmol/L (3.5-5.1); Protein, Total 7.4 g/dL (6.4-8.2); Sodium Level 144 mmol/L (136-145); T3 Total - Triiodothyronine 1.03 ng/mL (0.6-1.81); Thyroid Stim Hormone (TSH) 1.57 uIU/mL (0.358-3.74); Triglycerides 90 mg/dL; Very Low Density Lipoprotein 18 mg/dL (5-40); Vitamin B12 442 pg/mL (211-911)
[2022-07-19 15:24] LABS: Absolute Lymphocyte Count 1.95 X10^3/uL (0.83-4.51); Absolute Neutrophil Count 2.8 X10^3/uL (2.0-7.7); Basophil# 0.03 X10^3/uL; Basophil% 0.5 % (0-1); Eosinophils% 3.6 % (0-5); Lymphocyte # 1.95 X10^3/ul (0.83-4.51); Lymphocyte % 35.5 % (19-41); Mean Corp Hgb Conc 32.6 g/dL (32-36); Mean Corpuscular Hgb 30.3 pg (27.0-32.0); Mean Corpuscular Volume 93.1 fL (81-99); Mean Platelet Vol. 10.9 fl (6.2-12.0); Monocyte# 0.54 X10^3/uL; Monocyte% 9.8 % (0-10); NRBC Flagged by Analyzer 0 % (0-5); Neutrophil # 2.77 X10^3/uL (2.7-7.7); Neutrophil % 50.4 % (47-70); Platelet Count 259 K/mm3 (150-450); RBC Distribution Width CV 12.2 % (11.6-14.6); RBC Distribution Width SD 41.5 fl (35.1-43.9); Red Blood Count 4.62 M/mm3 (4.2-5.4); White Blood Count 5.5 K/mm3 (4.4-11.0)
== END | disposition home or self-care (01) ==
LOC: MTLAB 07:39
PROVIDERS: PCP Pediatrics; Referring Provider Pediatrics; Visit Provider Pediatrics
DX: E55.9 Vitamin D deficiency, unspecified (principal); E53.8 Deficiency of other specified B group vitamins; Z13.220 Encounter for screening for lipoid disorders; E89.0 Postprocedural hypothyroidism; R79.89 Other specified abnormal findings of blood chemistry
CPT/HCPCS: 36415; 80053; 80061; 82607; 84439; 84443; 84480; 85025

== ENCOUNTER → 2023-01-22 | Outpatient (CLI) | payer MEDICARE, OTHER, SELFPAY ==
[2023-01-22 10:53] LABS: ALB/GLOB Ratio 1.1 RATIO (0.9-2.4); AST(SGOT) 21 U/L (15-37); Alanine Aminotransfer ALT/SGPT 46 U/L (13-56); Albumin, Serum 3.7 g/dL (3.2-5.0); Alkaline Phosphatase 61 U/L (45-117); Anion Gap 2 (5-15); BUN 18 mg/dL (7-18); BUN/Creat Ratio 23.3 RATIO (10-20); Calcium,Total 9.2 mg/dL (8.5-10.1); Chloride 111 mmol/L (98-107); Creatinine, Serum 0.77 mg/dL (0.55-1.02); EST Glomerular Filtration Rate 79 mL/min (>60); Est Glom Filt Rate - Afr Amer 96 mL/min (>60); Free T3 2.4 pg/mL (2.18-3.98); Globulin 3.3 g/dL (2.2-4.2); Glucose 94 mg/dL (74-106); Potassium 4.1 mmol/L (3.5-5.1); Sodium Level 140 mmol/L (136-145); T4 Free Direct 1.14 ng/dL (0.76-1.46); Thyroid Stim Hormone (TSH) 1.54 uIU/mL (0.358-3.74)
== END | disposition home or self-care (01) ==
LOC: MTLAB 07:22
PROVIDERS: PCP Pediatrics; Referring Provider Pediatrics; Visit Provider Pediatrics
DX: R79.89 Other specified abnormal findings of blood chemistry (principal); E89.0 Postprocedural hypothyroidism
CPT/HCPCS: 36415; 80053; 84439; 84443; 84481

== ENCOUNTER → 2023-01-23 | Outpatient (CLI) | payer MEDICARE, OTHER, SELFPAY | END | disposition home or self-care (01) | LOC: MTLAB 15:31 | PROVIDERS: PCP Pediatrics; Referring Provider Pediatrics; Visit Provider Pediatrics | DX: R79.89 Other specified abnormal findings of blood chemistry (principal); E89.0 Postprocedural hypothyroidism | CPT/HCPCS: 84480 ==

== ENCOUNTER → 2023-07-23 | Outpatient (CLI) | payer MEDICARE, OTHER, SELFPAY ==
[2023-07-23 10:33] LABS: Absolute Lymphocyte Count 1.97 X10^3/uL (0.83-4.51); Absolute Neutrophil Count 2.6 X10^3/uL (2.0-7.7); Basophil# 0.05 X10^3/uL; Basophil% 0.9 % (0-1); Eosinophil# 0.25 X10^3/uL; Eosinophils% 4.7 % (0-5); Hemoglobin 14.4 g/dL (12.0-15.0); Lymphocyte # 1.97 X10^3/ul (0.83-4.51); Mean Corp Hgb Conc 32.7 g/dL (32-36); Mean Corpuscular Volume 94.8 fL (81-99); Mean Platelet Vol. 10.4 fl (6.2-12.0); Monocyte# 0.47 X10^3/uL; Monocyte% 8.8 % (0-10); NRBC Flagged by Analyzer 0 % (0-5); Neutrophil # 2.58 X10^3/uL (2.7-7.7); Neutrophil % 48.4 % (47-70); Platelet Count 264 K/mm3 (150-450); RBC Distribution Width CV 12.2 % (11.6-14.6); RBC Distribution Width SD 42.1 fl (35.1-43.9); Red Blood Count 4.64 M/mm3 (4.2-5.4); White Blood Count 5.3 K/mm3 (4.4-11.0)
[2023-07-23 11:15] LABS: AST(SGOT) 23 U/L (15-37); Alanine Aminotransfer ALT/SGPT 56 U/L (13-56); Albumin, Serum 3.7 g/dL (3.2-5.0); Alkaline Phosphatase 62 U/L (45-117); Anion Gap 4 (5-15); BUN 19 mg/dL (7-18); BUN/Creat Ratio 25.9 RATIO (10-20); Calcium,Total 9.2 mg/dL (8.5-10.1); Chloride 110 mmol/L (98-107); Cholesterol 186 mg/dL (200); Creatinine, Serum 0.73 mg/dL (0.55-1.02); EST Glomerular Filtration Rate 84 mL/min (>60); Est Glom Filt Rate - Afr Amer 102 mL/min (>60); Free T3 2.5 pg/mL (2.18-3.98); Globulin 3.7 g/dL (2.2-4.2); Glucose 102 mg/dL (74-106); High Density Lipoprotein 57 mg/dL; Potassium 4.2 mmol/L (3.5-5.1); Protein, Total 7.4 g/dL (6.4-8.2); Sodium Level 142 mmol/L (136-145); T4 Free Direct 1.21 ng/dL (0.76-1.46); Thyroid Stim Hormone (TSH) 1.52 uIU/mL (0.358-3.74); Triglycerides 90 mg/dL; Very Low Density Lipoprotein 18 mg/dL (5-40)
== END | disposition home or self-care (01) ==
LOC: MTLAB 07:02
PROVIDERS: PCP Pediatrics; Referring Provider Pediatrics; Visit Provider Pediatrics
DX: Z00.00 Encounter for general adult medical examination without abnormal findings (principal); E03.9 Hypothyroidism, unspecified
CPT/HCPCS: 36415; 80053; 80061; 84439; 84443; 84481; 85025

== ENCOUNTER → 2023-08-16 | Outpatient (CLI) | payer MEDICARE, OTHER, SELFPAY ==
--- NOTE | 2023-08-16 11:58 | BI_ITS ---
MAMMOGRAPHY - BILATERAL SCREENING REASON FOR EXAM: Female, 68 years old. Routine annual screening examination. PERTINENT HISTORY: Grandmother with breast cancer. Aunts with breast cancer. TECHNIQUE: Digital bilateral breast hussain (3D mammographic acquisition) in the CC and MLO projections. 2-D mediolateral oblique (MLO) and craniocaudad (CC) views of both breasts were obtained. CAD: Full Field Digital Mammography with Computer Added Detection was performed. COMPARISON: Comparison is made with prior outside examination August 09, 2022 and May 15, 2012. FINDINGS: Breast Composition: There are scattered areas of fibroglandular density. There are no dominant masses or suspicious calcifications. Stable small benign-appearing bilateral axillary lymph nodes. No other significant abnormalities are identified. There has been no significant change since the prior study. BI/SCRN MAMM (CAD)W/HUSSAIN BILAT IMPRESSION: Stable bilateral screening mammogram. Yearly follow-up mammogram recommended. (A) ASSESSMENT CATEGORY: BIRADS Category 2: Benign. A letter regarding these results will be sent to the patient by the facility within 30 days. Approximately 10% of breast cancers are not detected by mammography. A normal mammogram should not delay biopsy of a clinically suspicious abnormality. [id number] Electronically Signed: Chauncey Wallace MD at 13:48 EDT ,
== END | disposition home or self-care (01) ==
PROVIDERS: PCP Pediatrics; Referring Provider Pediatrics; Visit Provider Pediatrics
DX: Z12.31 Encounter for screening mammogram for malignant neoplasm of breast (principal); Z80.3 Family history of malignant neoplasm of breast
CPT/HCPCS: 77063; 77067

== ENCOUNTER 2023-11-03 14:28 | Emergency (ER) | payer MEDICARE, OTHER, SELFPAY ==
[2023-11-03 14:29] VITALS: BP 143/88; PULSE 85; RESP 16; TEMP 34.9; O2SAT 96; BMI 31.1
--- NOTE | 2023-11-03 15:10 | RAD_ITS ---
EXAM: XR RIGHT SHOULDER COMPLETE, 2 OR MORE VIEWS CLINICAL INDICATION: injury TECHNIQUE: Two or more views of the right shoulder. COMPARISON: No relevant prior studies available. FINDINGS: BONES/JOINTS: Unremarkable. No acute fracture. No subluxation. Normal alignment. Preservation of the joint space. No sclerotic or destructive changes observed. SOFT TISSUES: Unremarkable. No soft tissue swelling or gas. No radiopaque foreign body. RAD/Shoulder min 2 Views IMPRESSION: Negative right shoulder x-rays. Electronically Signed: Calvin Cooney MD at 15:30 EST ,
--- OUTSIDE RECORDS SUMMARY | 2023-11-03 15:22 | XMS RPT_ITS | CCD ---
Author Name Unknown Address [id number] [place] [address] Organization [facility] Care Team Providers Care Flexo Press Operator Name Role Phone Quoc Mckinney Unavailable Unavailable La Park Unavailable Unavailable La Park Unavailable Unavailable Quoc Mckinney Unavailable Unavailable La Park Unavailable Unavailable Unavailable La Park MD Primary Care Provider [phone] Unavailable Unavailable Nora, Dr. La Fairbanks Attending Unavaila ble Nora, Dr. La Fairbanks Primary Care Unavaila ble Nora, Dr. La Fairbanks Referring Unavaila ble Nora, Dr. La Fairbanks Attending Unavaila ble Nora, Dr. La Fairbanks Primary Care Unavaila ble Nekl, Quoc Cordero Attending Unavailable Quoc Mckinney Referring Unavailable Nora, Dr. La Fairbanks Primary Care Unavaila ble Noar, Dr. La Fairbanks Primary Care Unavaila ble Bill, Gerald Shaww Varghese Attending Unava ilable MeansKacey Referring Unavailable Nora, Dr. La Fairbanks Primary Care Unavaila ble MeansKacey Attending Unavailable Kacey Patterson Referring Unavailable Nora, Dr. La Fairbanks Attending Unavaila ble Nora, Dr. La Fairbanks Primary Care Unavaila ble Nora, Dr. La Fairbanks Referring Unavaila ble Nora, Dr. La Fairbanks Primary Care Unavaila ble Nora, Dr. La Fairbanks Attending Unavaila ble Nora, Dr. La Fairbanks Attending Unavaila ble Nora, Dr. La Fairbanks Referring Unavaila ble Nora, Dr. La Fairbanks Primary Care Unavaila ble Nora, Dr. La Fairbanks Attending Unavaila ble Nora, Dr. La Fairbanks Referring Unavaila ble Nora, Dr. La Fairbanks Primary Care Unavaila ble Nora, Dr. La Fairbanks Attending Unavaila ble Nora, Dr. La Fairbanks Referring Unavaila ble Nora, Dr. La Fairbanks Primary Care Unavaila ble Nora, Dr. La Fairbanks Attending Unavaila ble Nora, Dr. La Fairbanks Referring Unavaila ble Nora, Dr. La Fairbanks Primary Care UnavailLa Pérez MD Primary Care Provider [phone] La Park MD Unavailable LA PARK Attending [facility] Unavailable LA PARK Attending [facility] Unavailable Allergies Allergy Classification Reported Allergen(s) Allergy Type Date of Onset Reaction(s) Facility (9 sources) valdecoxib; Translations: [VALDECOXIB] Drug Allergy 6 GI U[facility]et [facility] Work Phone: (8 sources) molds [Other] Propensity to adverse reactions [address] [place] [address] Work Phone: (1 source) Mold Extract; Translations: [MOLD] Drug Allergy 6 [facility] 3 Repository Medications Current Medications Medication Drug Class(es) Dates Sig (Normalized) Sig (Original) [id number] 200 actuat albuterol 0.09 mg/actuat metered dose inhaler (20 sources) beta2-Adrenergic Agonist Start: 01-28-2023 take 2 puff(s) by inhalation every four hours albuterol 90 mcg/actuation inhaler Indications: Asthma, unspecified asthma severity, unspecified whether complicated, unspecified whether persistent Inhale 2 puffs every 4 hours. 18 g 0 01/28/2023 Active Completed/Discontinued Medications Medication Drug Class(es) Dates Sig (Normalized) Sig (Original) calcium carbonate 1250 mg / cholecalciferol 125 unt oral tablet (20 sources) Vitamin D Start: 11-16-2016 Calcium 500-125 MG-UNIT TABS Quantity: 0 Refills: 0 Ordered: 16-Nov-2016 DO Start : 16-Nov-2016 Active cholecalciferol 0.05 mg oral tablet (20 sources) Vitamin D Start: 03-29-2015 take 1 tablet by mouth once daily Vitamin D3 50 MCG (2000 UT) Oral Tablet Take 1 tablet daily Quantity: 30 Refills: 3 Ordered: 29-Mar-2015 La Park MD Start : 29-Mar-2015 Active Deplin 15 15-90.314 MG Oral Capsule (1 source) Start: 03-29-2015 take 1 capsule by mouth once daily Deplin 15 15-90.314 MG Oral Capsule take 1 po q d Quantity: 90 Refills: 1 La Park MD Start : 29-Mar-2015 Active Deplin 15 15-90.314 MG Oral Capsule (20 sources) Start: 03-29-2015 take 1 capsule by mouth once daily Deplin 15 15-90.314 MG Oral Capsule take 1 po q d Quantity: 90 Refills: 1 Ordered: 31-Jan-2018 La Park MD Start : 29-Mar-2015 Active eflornithine 139 mg/ml topical cream (3 sources) Antiprotozoal, Decarboxylase Inhibitor Start: 05-25-2008 End: 08-18-2021 eflornithine hcl(VANIQA 13.9 % TOPICAL CREAM) Use as directed. 2 3 05/25/2008 08/18/2021 Discontinued Problems Active Problems Problem Classification Problem Date Documented Date Episodic/Chronic Abdominal pain (20 sources) Abdominal pain; Translations: [Abdominal pain, unspecified site] Episodic Allergic reactions (1 source) H/O: non-drug allergy; Translations: [Allergy status to unspecified drugs, medicaments and biological substances status] Episodic Asthma (20 sources) Asthma; Translations: [Asthma, unspecified type, unspecified] Onset: 01-28-2023 10-22-2005 Chronic Biliary tract disease (1 source) Acute cholecystitis; Translations: [Acute cholecystitis] Episodic Cardiac dysrhythmias (20 sources) Tachycardia; Translations: [Tachycardia, unspecified] Episodic Complications of surgical procedures or medical care (20 sources) Postoperative hypothyroidism; Translations: [Postsurgical hypothyroidism] Chronic Conditions associated with dizziness or vertigo (20 sources) Vertigo; Translations: [Dizziness and giddiness] Episodic Deficiency and other anemia (20 sources) Iron deficiency anemia; Translations: [Iron deficiency anemia, unspecified] Episodic Diseases of white blood cells (20 sources) Leukopenia; Translations: [Leukocytopenia, unspecified] Chronic Diverticulosis and diverticulitis (8 sources) Diverticulosis of colon; Translations: [Diverticulosis of large intestine without perforation or abscess without bleeding] Onset: 06-12-2007 06-12-2007 Chronic Endometriosis (20 sources) Endometriosis of uterus; Translations: [Uterine adenomyosis] Chronic Genitourinary symptoms and ill-defined conditions (14 sources) Dysuria; Translations: [Dysuria] Episodic Headache; including migraine (20 sources) Headache; Translations: [Headache] Episodic Immunizations and screening for infectious disease (20 sources) Patient encounter status; Translations: [Other specified vaccination] Episodic Malaise and fatigue (20 sources) Fatigue; Translations: [Other malaise and fatigue] Episodic Mood disorders (20 sources) Depressive disorder; Translations: [Depressive disorder, not elsewhere classified] Chronic Nonspecific chest pain (20 sources) Atypical chest pain; Translations: [Chest pain] Episodic Nutritional deficiencies (20 sources) Vitamin D deficiency; Translations: [Unspecified vitamin D deficiency] Onset: 01-28-2023 01-28-2023 Chronic Nutritional deficiencies (20 sources) Cobalamin deficiency; Translations: [Other B-complex deficiencies] Onset: 01-28-2023 01-28-2023 Episodic Osteoarthritis (1 source) Bilateral primary osteoarthritis of hip; Translations: [Bilateral primary osteoarthritis of hip] Onset: 02-07-2022 Chronic Other connective tissue disease (20 sources) Foot pain; Translations: [Pain in limb] Episodic Other ear and sense organ disorders (12 sources) Sensorineural hearing loss, bilateral; Translations: [Sensorineural hearing loss, bilateral] Chronic Other ear and sense organ disorders (1 source) Sensorineural hearing loss, bilateral; Translations: [Sensorineural hearing loss, bilateral] Onset: 04-11-2022 Chronic Other ear and sense organ disorders (12 sources) Bilateral subjective tinnitus of ears; Translations: [Subjective tinnitus] Episodic Other hematologic conditions (20 sources) H/O: anemia; Translations: [Personal history of diseases of blood and blood-forming organs] Episodic Other lower respiratory disease (20 sources) H/O: respiratory disease; Translations: [Personal history of other diseases of respiratory system] Episodic Other lower respiratory disease (20 sources) Dyspnea; Translations: [Other respiratory abnormalities] Episodic Other non-traumatic joint disorders (18 sources) Hip pain; Translations: [Pain in joint, pelvic region and thigh] Episodic Other nutritional; endocrine; and metabolic disorders (14 sources) Obesity; Translations: [Obesity, unspecified] Chronic Other screening for suspected conditions (not mental disorders or infectious disease) (20 sources) Liver function tests abnormal; Translations: [Patient encounter status] Onset: 08-09-2022 Episodic Other upper respiratory disease (20 sources) Allergic rhinitis; Translations: [Allergic rhinitis, cause unspecified] Onset: 01-28-2023 10-22-2005 Chronic Other upper respiratory infections (2 sources) Acute frontal sinusitis, unspecified; Translations: [Acute frontal sinusitis, unspecified] Onset: 07-30-2023 Episodic Residual codes; unclassified (20 sources) Postmenopausal state; Translations: [Asymptomatic postmenopausal status (age-related) (natural)] Episodic Residual codes; unclassified (1 source) Family history of malignant neoplasm of breast; Translations: [Family history of malignant neoplasm of breast] Onset: 08-09-2022 Episodic Residual codes; unclassified (4 sources) Asymptomatic menopausal state; Translations: [Asymptomatic menopausal state] Onset: 08-24-2022 Episodic Spondylosis; intervertebral disc disorders; other back problems (1 source) Spondylosis without myelopathy or radiculopathy, lumbar region; Translations: [Spondylosis w/o myelopathy or radiculopathy, lumbar region] Onset: 02-07-2022 Chronic Spondylosis; intervertebral disc disorders; other back problems (20 sources) Low back pain; Translations: [Lumbago] Onset: 02-15-2022 Episodic Thyroid disorders (20 sources) Thyroid nodule; Translations: [Nontoxic uninodular goiter] Onset: 07-30-2023 01-28-2023 Chronic Unclassified (2 sources) Low back pain, unspecified; Translations: [Low back pain, unspecified] Onset: 02-07-2022 Past or Other Problems Problem Classification Problem Date Documented Da te Episodic/Chronic Gastrointestinal hemorrhage (8 sources) Gastrointestinal hemorrhage; Translations: [Gastrointestinal hemorrhage, unspecified] Onset: 06-12-2007 Episodic Hemorrhoids (8 sources) Internal hemorrhoids; Translations: [Other hemorrhoids] Onset: 7 06-12-2007 Episodic Other and unspecified benign neoplasm (8 sources) Benign neoplasm of colon; Translations: [Benign neoplasm of colon, unspecified] Onset: 7 06-12-2007 Episodic Other ear and sense organ disorders (1 source) Tinnitus, bilateral; Translations: [Tinnitus, bilateral] Onset: 2 Episodic Other non-traumatic joint disorders (3 sources) Pain in right hip; Translations: [Pain in right hip] Onset: 2 Episodic Other non-traumatic joint disorders (1 source) Pain in left hip; Translations: [Pain in left hip] Onset: 2 Episodic Unclassified (20 sources) Complete Colonoscopy; Translations: [Complete Colonoscopy] Unclassified (2 sources) Patient encounter status; Translations: [Screening for hyperlipidemia] Unclassified (1 source) Low back pain, unspecified; Translations: [Low back pain, unspecified] Onset: 2 Unclassified (1 source) Onset: 3 01-28-2023 NEGATED: Highlighted row has not occurred!Residual codes; unclassified (9 sources) Disease Episodic Results Test Name Value Interpretation Reference Range Facil ity Vital Signs Date Time Vital Sign Value Performing Clinician Mayito lombardo 01-28-2023 10:36-0400 Body height 167.6 cm La Park MD Work Phone: [facility] 01-28-2023 10:36-0400 Body mass index (BMI) [Ratio] 30.83 kg/m2 La Park MD Work Phone: [facility] 01-28-2023 10:36-0400 Body temperature 98.2 [degF] La Park MD Work Phone: [facility] 01-28-2023 10:36-0400 Body weight 86.64 kg La Park MD Work Phone: [facility] 01-28-2023 10:36-0400 Diastolic blood pressure 60 mm[Hg] La Park MD Work Phone: [facility] 01-28-2023 10:36-0400 Heart rate 74 /min La Park MD Work Phone: [facility] 01-28-2023 10:36-0400 Respiratory rate 16 /min La Park MD Work Phone: [facility] 01-28-2023 10:36-0400 Systolic blood pressure 110 mm[Hg] La Park MD Work Phone: [facility] 07-23-2022 11:01-0400 Body height 167.64 cm La Park Work Phone: [facility] Work Phone: 07-23-2022 11:01-0400 Body mass index (BMI) [Ratio] 30.34 kg/m2 La Park Work Phone: [facility] Work Phone: 07-23-2022 11:01-0400 Body surface area Derived from formula 1.95 m2 La Park Work Phone: [facility] Work Phone: 07-23-2022 11:01-0400 Body temperature 98.5 [degF] La Park Work Phone: [facility] Work Phone: 07-23-2022 11:01-0400 Body weight 85.28 kg La Park Work Phone: [facility] Work Phone: 07-23-2022 11:01-0400 Diastolic blood pressure 64 mm[Hg] La Park Work Phone: [facility] Work Phone: 07-23-2022 11:01-0400 Heart rate 80 /min La Park Work Phone: [facility] Work Phone: 07-23-2022 11:01-0400 Respiratory rate 16 /min La Park Work Phone: [facility] Work Phone: 07-23-2022 11:01-0400 Systolic blood pressure 100 mm[Hg] La Park Work Phone: [facility] Work Phone: 04-11-2022 10:44-0400 Body height 167.64 cm La Park Work Phone: [id number] Work Phone: 04-11-2022 10:44-0400 Body mass index (BMI) [Ratio] 30.67 kg/m2 La Park Work Phone: [facility] Work Phone: 04-11-2022 10:44-0400 Body surface area Derived from formula 1.96 m2 La Park Work Phone: [facility] Work Phone: 04-11-2022 10:44-0400 Body temperature 98.2 [degF] La Park Work Phone: [facility] Work Phone: 04-11-2022 10:44-0400 Body weight 86.18 kg La Park Work Phone: [facility] Work Phone: 03-26-2022 10:23-0400 Body height 167.64 cm La Park Work Phone: [facility] Work Phone: 03-26-2022 10:23-0400 Body mass index (BMI) [Ratio] 30.67 kg/m2 La Park Work Phone: [facility] Work Phone: 03-26-2022 10:23-0400 Body surface area Derived from formula 1.96 m2 La Park Work Phone: [facility] Work Phone: 03-26-2022 10:23-0400 Body temperature 100.1 [degF] La Park Work Phone: [facility] Work Phone: 03-26-2022 10:23-0400 Body weight 86.18 kg La Park Work Phone: [facility] Work Phone: 03-26-2022 10:23-0400 Diastolic blood pressure 60 mm[Hg] La Park Work Phone: [facility] Work Phone: 03-26-2022 10:23-0400 Heart rate 100 /min La Park Work Phone: [facility] Work Phone: 03-26-2022 10:23-0400 Systolic blood pressure 90 mm[Hg] La Park Work Phone: [facility] Work Phone: 02-07-2022 15:40-0400 Body height 167.64 cm La Park Work Phone: [facility] Work Phone: 02-07-2022 15:40-0400 Body mass index (BMI) [Ratio] 30.99 kg/m2 La Park Work Phone: [facility] Work Phone: 02-07-2022 15:40-0400 Body surface area Derived from formula 1.97 m2 La Park Work Phone: [facility] Work Phone: 02-07-2022 15:40-0400 Body temperature 98.5 [degF] La Park Work Phone: [facility] Work Phone: 02-07-2022 15:40-0400 Body weight 87.09 kg La Park Work Phone: [facility] Work Phone: 02-07-2022 15:40-0400 Diastolic blood pressure 70 mm[Hg] La Park Work Phone: [facility] Work Phone: 02-07-2022 15:40-0400 Heart rate 80 /min La Park Work Phone: [facility] Work Phone: 02-07-2022 15:40-0400 Respiratory rate 18 /min La Park Work Phone: [facility] Work Phone: 02-07-2022 15:40-0400 Systolic blood pressure 120 mm[Hg] La Park Work Phone: [facility] Work Phone: 09-19-2021 13:53-0500 Body height 167.64 cm La Park Work Phone: [facility] Work Phone: 09-19-2021 13:53-0500 Body mass index (BMI) [Ratio] 31.31 kg/m2 La Park Work Phone: [facility] Work Phone: 09-19-2021 13:53-0500 Body surface area Derived from formula 1.97 m2 La Park Work Phone: [facility] Work Phone: 09-19-2021 13:53-0500 Body temperature 98.4 [degF] La Park Work Phone: [facility] Work Phone: 09-19-2021 13:53-0500 Body weight 88 kg La Park Work Phone: [facility] Work Phone: 09-19-2021 13:53-0500 Diastolic blood pressure 70 mm[Hg] La Park Work Phone: [facility] Work Phone: 09-19-2021 13:53-0500 Heart rate 82 /min La Park Work Phone: [facility] Work Phone: 09-19-2021 13:53-0500 Respiratory rate 18 /min La Park Work Phone: [facility] Work Phone: 09-19-2021 13:53-0500 Systolic blood pressure 130 mm[Hg] La Park Work Phone: [facility] Work Phone: 08-18-2021 12:58-0400 Body height 167.9 cm Nubia Barlow MD Work Phone: [facility] 08-18-2021 12:58-0400 Body weight 86.18 kg Nubia Barlow MD Work Phone: [facility] 08-18-2021 12:58-0400 Diastolic blood pressure 71 mm[Hg] Nubia Barlow MD Work Phone: [facility] 08-18-2021 12:58-0400 Heart rate 70 /min Nubia Barlow MD Work Phone: [facility] 08-18-2021 12:58-0400 Respiratory rate 14 /min Nubia Barlow MD Work Phone: [facility] 08-18-2021 12:58-0400 SaO2% (BldA) [Mass fraction] 99 % Nubia aBrlow MD Work Phone: [facility] 08-18-2021 12:58-0400 Systolic blood pressure 150 mm[Hg] Nubia Barlow MD Work Phone: [facility] 08-18-2021 12:54-0400 Body height 167.9 cm Respiratory Wstr Work Phone: [facility] 08-18-2021 12:54-0400 Body weight 86.18 kg Respiratory Wstr Work Phone: [facility] 08-18-2021 12:54-0400 Heart rate 71 /min Respiratory Wstr Work Phone: [facility] 08-18-2021 12:54-0400 Respiratory rate 16 /min Respiratory Wstr Work Phone: [facility] 08-18-2021 12:54-0400 SaO2% (BldA) [Mass fraction] 99 % Respiratory Wstr Work Phone: [facility] 08-03-2021 13:35-0400 Body height 167.64 cm La Park Work Phone: [employer] [facility] Work Phone: 08-03-2021 13:35-0400 Body mass index (BMI) [Ratio] 30.67 kg/m2 La Park Work Phone: [facility] [facility] Work Phone: 08-03-2021 13:35-0400 Body surface area Derived from formula 1.96 m2 La Park Work Phone: [facility] [facility] Work Phone: 08-03-2021 13:35-0400 Body temperature 97.1 [degF] La Park Work Phone: [employer] [facility] Work Phone: 08-03-2021 13:35-0400 Body weight 86.18 kg La Park Work Phone: [facility] [facility] Work Phone: 08-03-2021 13:35-0400 Diastolic blood pressure 80 mm[Hg] La Park Work Phone: [facility] [facility] Work Phone: 08-03-2021 13:35-0400 Heart rate 90 /min La Park Work Phone: [facility] [facility] Work Phone: 08-03-2021 13:35-0400 Systolic blood pressure 120 mm[Hg] La Park Work Phone: [facility] [facility] Work Phone: 07-11-2021 09:22-0400 Body height 167.64 cm La Park Work Phone: [facility] Work Phone: 07-11-2021 09:22-0400 Body mass index (BMI) [Ratio] 30.67 kg/m2 La Park Work Phone: [facility] Work Phone: 07-11-2021 09:22-0400 Body surface area Derived from formula 1.96 m2 La Park Work Phone: [facility] Work Phone: 07-11-2021 09:22-0400 Body temperature 98.1 [degF] La Park Work Phone: [facility] Work Phone: 07-11-2021 09:22-0400 Body weight 86.18 kg La Park Work Phone: [facility] Work Phone: 07-11-2021 09:22-0400 Diastolic blood pressure 62 mm[Hg] La Park Work Phone: [facility] Work Phone: 07-11-2021 09:22-0400 Heart rate 78 /min La Park Work Phone: [facility] Work Phone: 07-11-2021 09:22-0400 Respiratory rate 18 /min La Park Work Phone: [facility] Work Phone: 07-11-2021 09:22-0400 Systolic blood pressure 118 mm[Hg] La Park Work Phone: [facility] Work Phone: 05-23-2021 16:34-0400 Body height 167.64 cm La Park Work Phone: [facility] Work Phone: 05-23-2021 16:34-0400 Body mass index (BMI) [Ratio] 30.34 kg/m2 La Park Work Phone: [facility] Work Phone: 05-23-2021 16:34-0400 Body surface area Derived from formula 1.95 m2 La Park Work Phone: [facility] Work Phone: 05-23-2021 16:34-0400 Body temperature 98.5 [degF] La Park Work Phone: [facility] Work Phone: 05-23-2021 16:34-0400 Body weight 85.28 kg La Park Work Phone: [facility] Work Phone: 05-23-2021 16:34-0400 Diastolic blood pressure 70 mm[Hg] La Park Work Phone: [facility] Work Phone: 05-23-2021 16:34-0400 Heart rate 78 /min La Bryantmel Work Phone: [facility] Work Phone: 05-23-2021 16:34-0400 Respiratory rate 18 /min La Park Work Phone: [facility] Work Phone: 05-23-2021 16:34-0400 SaO2% (BldA) [Mass fraction] 98 % La Park Work Phone: [facility] Work Phone: 05-23-2021 16:34-0400 Systolic blood pressure 120 mm[Hg] La Park Work Phone: [facility] Work Phone: 03-21-2021 14:03-0400 Body height 168.15 cm La Park Work Phone: [facility] Work Phone: 03-21-2021 14:03-0400 Body mass index (BMI) [Ratio] 29.84 kg/m2 La Park Work Phone: [facility] Work Phone: 03-21-2021 14:03-0400 Body surface area Derived from formula 1.94 m2 La Park Work Phone: [facility] Work Phone: 03-21-2021 14:03-0400 Body temperature 97.9 [degF] La Park Work Phone: [facility] Work Phone: 03-21-2021 14:03-0400 Body weight 84.37 kg La Park Work Phone: [facility] Work Phone: 03-21-2021 14:03-0400 Diastolic blood pressure 68 mm[Hg] La Bryantmel Work Phone: [facility] Work Phone: 03-21-2021 14:03-0400 Heart rate 72 /min La Bryantmel Work Phone: [facility] Work Phone: 03-21-2021 14:03-0400 Respiratory rate 18 /min La Park Work Phone: [facility] Work Phone: 03-21-2021 14:03-0400 Systolic blood pressure 110 mm[Hg] La Park Work Phone: [facility] Work Phone: 11-17-2019 13:52-0500 BMI (Body Mass Index) 28.4 kg/m2 Quoc Hank [facility] Work Phone: 11-17-2019 13:52-0500 Body Temperature 98.3 [degF] Quoc Alicia [facility] Work Phone: 11-17-2019 13:52-0500 Body weight 80.29 kg Quoc Hank [facility] Work Phone: 11-17-2019 13:52-0500 BP Diastolic 72 mm[Hg] Quoc Mckinney [facility] Work Phone: 11-17-2019 13:52-0500 BP Systolic 110 mm[Hg] Quoc Mckinney [facility] Work Phone: 11-17-2019 13:52-0500 BSA (Body Surface Area) 1.9 m2 Quoc Mckinney [facility] Work Phone: 11-17-2019 13:52-0500 Pulse (Heart Rate) 75 /min Quoc Mckinney [facility] Work Phone: Encounters Encounter Date Encounter Type Care Provider Facility Start: 07-30-2023 End: 07-30-2023 ambulatory [facility] Start: 07-30-2023 End: 07-30-2023 Encounter for general adult medical examination without abnormal findings [facility] Start: 01-28-2023 End: 01-28-2023 ambulatory [facility] Start: 01-28-2023 End: 01-28-2023 Office outpatient visit 15 minutes La Park MD Work Phone: [facility]/Peds Procedures Date Procedure Procedure Detail Performing Clinician Start: 01-22-2023 Thyrotropin [Units/v olume] in Serum or Plasma La Park MD Work Phone: Start: 08-09-2022 Mammography La buck MD Work Phone: Start: 08-18-2021 Nitric oxide gas determination Nubia Barlow MD Work Phone: Start: 08-18-2021 Brncdilat rspse spmt ry pre&post-brncdilat admn Nubia Barlow MD Work Phone: Start: 11-17-2019 MG Breast screening Jeffrey anne Hank Start: 10-27-2015 Colonoscopy [place] MD Work Phone: Start: 11-07-2006 Mammography Respirator y Wstr Work Phone: Appendectomy Quoc Nekl Cholecystectomy [place] Work Phone: Colonoscopy [place] Work Phone: Plan of Treatment Date Care Activity Detail Author Start: 03-25-2030 DTaP/Tdap/Td Vaccines (3 - Td or Tdap) DTaP/Tdap/Td Vaccines (3 - Td or Tdap) [facility] Start: 10-27-2025 Screening for malignant neoplasm of colon [facility] Start: 03-27-2025 DIABETES SCREEN DIABETES SCREEN [facility] Start: 01-23-2024 Thyroid stimulating hormone measurement TSH Level [facility] Start: 08-09-2023 Screening for malignant neoplasm of breast Mammogram [facility] Start: 07-30-2023 End: 01-29-2024 CBC W Auto Differential panel - Blood CBC and Auto Differential Lab Routine Hypothyroidism, unspecified type Routine general medical examination at a health care facility Expected: 07/30/2023, Expires: 01/29/2024 [facility] Service Area Work Phone: Immunizations Immunization Date Immunization Notes Care Provider [facility] 08-10-2022 Prevnar 20 0.5 ML Intramuscular Suspension Prefilled Syringe; Translations: [Prevnar 20 0.5 ML Intramuscular Suspension Prefilled Syringe] [place] Work Phone: -[facility] Work Phone: Payers Date Payer Category Payer Unknown [id number] 2020 Medicare [id number] 2020 Medicare [id number] 2020 Medicare [id number] 2020 Unknown [id number] 1. [id number] 1955 Unknown [id number] 2.16. [id number] 1955 Unknown [id number] 2.16. [id number] 1955 Unknown [id number] 2.16. [id number] 1955 Unknown [id number] 2.16. [id number] 1955 Unknown [id number] 2.16. [id number] 1955 Unknown [id number] 2.16. [id number] 1955 Unknown [id number] 2.16. [id number] 1955 Unknown [id number] 2.16. [id number] 1955 Unknown [id number] 2.16. [id number] 1955 Unknown [id number] 2.16. [id number] 1955 Unknown [id number] 2.16. [id number] 1955 Unknown [id number] 2.16.8 [id number] 1955 Unknown [id number] 2.16.84 [id number] Unknown Social History Date Type Detail Facility Start: 01-28-2023 [facility] Work Phone: Start: 08-18-2021 End: 01-28-2023 Tobacco smoking status NHIS Never smoker [facility] Work Phone: Start: 08-18-2021 End: 01-28-2023 Tobacco use and exposure Never used [facility] Start: 08-18-2021 End: 04-17-2022 Alcohol intake Current drinker of alcohol (finding) [facility] Start: 1955 Sex Assigned At Not on file [facility] Start: 03-27-2022 End: 01-28-2023 Exposure to SARS-CoV-2 (event) Not sure [facility] Start: 1955 Sex Assigned At Female [facility] Start: 01-28-2023 Alcohol intake [facility] Work Phone: Start: 01-28-2023 Tobacco use panel [facility] Work Phone: NEGATED: Highlighted row - - [facility] Work Phone: Functional Status Date Assessment Result Facility NEGATED: Highlighted row Functional performance Functional status health issues are not documented Disease [facility] Physician [facility] Work Phone: Mental Status Date Assessment Result Facility NEGATED: Highlighted row Cognitive function [Interpretation] Cognitive status health issues are not documented Disease [facility] Work Phone: Clinical Notes 05-21-2021 to 01-28-2023 [place] MD - 01/28/2023 10:00 AM Mayra Ying MD - 04/17/2022 9:26 AM EDT Note Date & Type Note Facility 01-28-2023 History of Present illness Narrative Subjective Patient ID: Adan Grady is a 67 y.o. female who presents for Med Refill and Blood work results. HPI Patient is here for follow-up today. She is on her thyroid medication and her vitamin supplementation as well as her medication for asthma. She is feeling quite well she has no new complaints. She had blood work done in [place] we reviewed that at length her thyroid was normal and the rest of her blood work was good. She feels like she has good energy. She has no chest pains no shortness of breath no lower extremity edema no headaches no dizziness no lightheadedness when she otherwise has no complaints. She is healed up well from her gallbladder surgery Review of Systems Review of systems was performed and is otherwise negative except as noted in HPI. Objective Vitals: 01/28/23 1036 BP: 110/60 Pulse: 74 Resp: 16 Temp: 36.8 C (98.2 F) Physical Exam CONSTITUTIONAL - well nourished, well developed, looks like stated age, in no acute distress, not ill-appearing, and not tired appearing SKIN - normal skin color and pigmentation, normal skin turgor without rash, lesions, or nodules visualized ENT - TM's intact, no injection, no exudate, nasal passage without discharge and patent NECK - supple without rigidity, no neck mass was observed, no thyromegaly or thyroid nodules CHEST - clear to auscultation, no wheezing, no crackles and no rales, good effort CARDIAC - regular rate and regular rhythm, no skipped beats, no murmur EXTREMITIES - no edema, no deformities PSYCHIATRIC - alert, pleasant and cordial, age-appropriate LYMPHATIC- no cervical lymphadenopathy Assessment/Plan Diagnoses and all orders for this visit: Routine general medical examination at a [facility] care facility - CBC and Auto Differential; Future - Comprehensive Metabolic Panel; Future - Lipid Panel; Future - Thyroid Stimulating Hormone; Future - Thyroxine, Free; Future - Triiodothyronine, Free; Future Hypothyroidism, unspecified type - levothyroxine (Synthroid, Levoxyl) 88 mcg tablet; Take 1 tablet (88 mcg) by mouth once daily in the morning. Take before meals. - CBC and Auto Differential; Future - Comprehensive Metabolic Panel; Future - Lipid Panel; Future - Thyroid Stimulating Hormone; Future - Thyroxine, Free; Future - Triiodothyronine, Free; Future Asthma, unspecified asthma severity, unspecified whether complicated, unspecified whether persistent - albuterol 90 mcg/actuation inhaler; Inhale 2 puffs every 4 hours. - montelukast (Singulair) 10 mg tablet; Take 1 tablet (10 mg) by mouth once daily at bedtime. Patient is to follow-up with me in 6 months That will be her annual physical Blood work order was placed and printed for her to get done at [place] She will call with issues [place] MD documented in this encounter [facility] Work Phone: 05-17-2022 Note HNO ID: [id number] Author: Reema Rice PT Service: ? Author Type: Physical Therapist Type: Progress Notes Filed: 05/17/2022 2:54 PM Note Text: 05/17/[address] [facility] REHABILITATION AND SPORTS THERAPY PHYSICAL THERAPY DISCONTINUANCE OF CARE Plan of Care Period: Start of Care Date: 02/15/22 Last Visit Date: 03/08/2022 Therapy Program: The following is a summary of the interventions provided for this episode of care; Therapeutic exercise, Self-penitentiary management and Patient/Family/Caregiver Education Assessment: Based on most recent visit, patient was progressing as expected toward functional goals based on documented subjective information on progress. Unable to formally assess goal achievement, as patient has not returned to therapy or scheduled additional follow-up appointments. Reason for Discontinuation of Care: Patient has not returned to therapy or scheduled additional follow-up appointments. Reema Rice, PT [facility] 04-17-2022 Note HNO ID: [id number] Author: Inge Ying MD Service: ? Author Type: Physician Type: Progress Notes Filed: 04/17/2022 9:39 AM Note Text: POST OP Patient presents with: Post Op Follow Up: 03/26 lap emma w/ cholangiograms HPI: doing well only c/o is fatigue VITALS: There were no vitals taken for this visit. MEDS: ibuprofen (MOTRIN) 600 mg tablet Take 1 tablet by mouth every 6 hours as needed for pain. calcium carbonate (CALCIUM 500) 500 mg calcium (1,250 mg) tablet Take 2 tablets by mouth once daily. levothyroxine 88 mcg cap Take 88 mcg by mouth daily before breakfast. montelukast (SINGULAIR) 10 mg tablet Take 10 mg by mouth daily at bedtime. mometasone furoate(NASONEX 50 MCG/ACTUATION SPRAY) 2 sprays each nostril daily loratadine (CLARITIN) 10 mg ORAL Tab Take one(1) tablet daily. As needed. THERAPEUTIC MULTIVITAMIN TAB Take one(1) tablet daily. ALBUTEROL 90 MCG/ACTUATION AEROSOL INHALER 2 puffs every four (4) hours as needed PHYSICAL EXAM: Abdomen- Soft, non-tender, non-distended and incisions satisfactory Extremities: No edema or swelling Neuro: Oriented to person, place, and time. PATHOLOGY: Acute cholecystitis. - Cholelithiasis. IMPRESSION: Post op course: Doing well I have explained to Ms. Grady that she may return to normal activity with no lifting, pulling, pushing over 50 pounds, no core exercises and no lifting and twisting for a total of 4 weeks. I have encouraged her to contact me at any time with any questions or concerns that may arise. Follow up: When necessary Inge Ying MD 04/17/2022 9:38 AM [facility] 04-17-2022 History of Present illness Narrative POST OP Patient presents with: Post Op Follow Up: 03/26 lap emma w/ cholangiograms HPI: doing well only c/o is fatigue VITALS: There were no vitals taken for this visit. MEDS: ibuprofen (MOTRIN) 600 mg tablet Take 1 tablet by mouth every 6 hours as needed for pain. calcium carbonate (CALCIUM 500) 500 mg calcium (1,250 mg) tablet Take 2 tablets by mouth once daily. levothyroxine 88 mcg cap Take 88 mcg by mouth daily before breakfast. montelukast (SINGULAIR) 10 mg tablet Take 10 mg by mouth daily at bedtime. mometasone furoate(NASONEX 50 MCG/ACTUATION SPRAY) 2 sprays each nostril daily loratadine (CLARITIN) 10 mg ORAL Tab Take one(1) tablet daily. As needed. THERAPEUTIC MULTIVITAMIN TAB Take one(1) tablet daily. ALBUTEROL 90 MCG/ACTUATION AEROSOL INHALER 2 puffs every four (4) hours as needed PHYSICAL EXAM: Abdomen- Soft, non-tender, non-distended and incisions satisfactory Extremities: No edema or swelling Neuro: Oriented to person, place, and time. PATHOLOGY: Acute cholecystitis. - Cholelithiasis. IMPRESSION: Post op course: Doing well I have explained to Ms. Grady that she may return to normal activity with no lifting, pulling, pushing over 50 pounds, no core exercises and no lifting and twisting for a total of 4 weeks. I have encouraged her to contact me at any time with any questions or concerns that may arise. Follow up: When necessary Inge Ying MD 04/17/2022 9:38 AM documented in this encounter [facility] 04-14-2022 History of Present illness Narrative This is a 66-year-old female, with complaints one episode of hematuria and symptomatic low blood pressure.She also complains of fever, chills, nausea and vomiting during the weekend.sxs started 5 days agoShe reports one liquid diarrhea today but has had nausea for several daysDenies dysuria, no increased urinary frequency. d see the blood since this weekend slight blood tingedno emesis but poor appetiteyesterday got chantel jorge and soup and that helped some [facility] Work Phone: 04-13-2022 History of Present illness Narrative This is a 66-year-old female, with complaints one episode of hematuria and symptomatic low blood pressure.She also complains of fever, chills, nausea and vomiting during the weekend.sxs started 5 days agoShe reports one liquid diarrhea today but has had nausea for several daysDenies dysuria, no increased urinary frequency. d see the blood since this weekend slight blood tingedno emesis but poor appetiteyesterday got chantel jorge and soup and that helped some [facility] Work Phone: 03-27-2022 Note HNO ID: [id number] Author: Ivette Bird (Allergy And Immunology Specialist) Service: Pharmacy Author Type: ? Type: Plan of Care Filed: 03/27/2022 3:01 PM Note Text: PHARMACY BEDSIDE DELIVERY SERVICE Patient Name: Adan Grady The marked outpatient medications were Filled at: [facility] and delivered to the patient's bedside to [facility] Medication List START taking these medications ciprofloxacin HCl 500 mg tablet Commonly known as: CIPRO Take 1 tablet by mouth twice daily for 5 days. X ibuprofen 600 mg tablet Commonly known as: MOTRIN Take 1 tablet by mouth every 6 hours as needed for pain. X metroNIDAZOLE 500 mg tablet Commonly known as: FlagyL Take 1 tablet by mouth three times daily for 5 days. X oxyCODONE IR 5 mg immediate release tablet Commonly known as: ROXICODONE Take 1 tablet by mouth every 6 hours as needed for pain for up to 3 days. X CONTINUE taking these medications albuterol 90 mcg/actuation Aero Commonly known as: PROVENTIL CALCIUM 500 500 mg calcium (1,250 mg) tablet Generic drug: calcium carbonate CLARITIN 10 mg tablet Generic drug: loratadine levothyroxine 88 mcg Cap montelukast 10 mg tablet Commonly known as: SINGULAIR NASONEX 50 mcg/actuation nasal spray Generic drug: mometasone 2 sprays each nostril daily therapeutic multivitamin tablet Commonly known as: THERA VITAMIN You might also be taking other medications not listed above. If you have questions about any of your other medications, talk to the person who prescribed them or your Primary Care Provider. Ivette Bird (Allergy And Immunology Specialist) PAGER: [phone] March 27, 2022 2:59 PM [facility] documented as of this encounter (statuses as of 04/17/2022) [facility]06-13-2022 NoteHNO ID: [id number] Author: Brian Rosales APRN.CRNA Service: Anesthesiology Author Type: Nurse Regional Office Coordinator Type: Anesthesia Procedure Notes Filed: 03/26/2022 3:52 PM Note Text: ANESTHESIOLOGY PROCEDURE NOTE Airway General Information Procedure Start Time/Medication Administration: 03/26/2022 3:41 PM Procedure End Time: 03/26/2022 3:43 PM Patient location during procedure: OR Timeout Performed Pre-procedure: timeout performed Consent Obtained: Yes Patient identity confirmed: arm band and patient Staffing BOOK CANVASSER: Brian Rosales APRN.BOOK CANVASSER Performed by: LOUISA Indications and Patient Condition Preoxygenated: yes Patient position: sniffing Manual In-Line Stabilization: No Difficult Mask: No Indications for airway management: anesthesia anesthesia circuit Method: asleep Cricoid Pressure: Yes Final Airway Details Final airway type: endotracheal airway Final Endotracheal Airway: ETT Cuffed: yes Successful intubation technique: direct laryngoscopy Endotracheal tube insertion site: oral Blade: Jun Blade size: #3 ETT size (mm): 7.0 Measured from: gums Measurement (cm): 21 Placement verified by: chest auscultation Cormack-Lehane Classification: grade I - full view of glottis Number of attempts at approach: 1 Failed airway: no Unrecognized esophageal intubation: no Airway not difficult SIGNATURE: Brian Rosales APRN.BOOK CANVASSER PATIENT NAME: Adan Grady DATE: March 26, 2022 TIME: 3:51 PM CSN: [id number] NoteHNO ID: [id number] Author: Reema Rice PT Service: ? Author Type: Physical Therapist Type: Progress Notes Filed: 03/08/2022 4:54 PM Note Text: Episode Visit Count: 4 Therapist That Will Oversee The Plan Of Care: Reema Rice PT Start of Care Date: 02/15/22 Onset Date: 01/25/22 (December with back pain from moving at work) Plan of Care Certification Date: 02/15/22 Next Certification Due Date: 03/29/22 Patient Identified by Name and Date of : Yes REHABILITATION AND SPORTS THERAPY PHYSICAL THERAPY TREATMENT NOTE ASSESSMENT: Adan Grady tolerated the session with no issues. She demonstrated improvements in hamstring testing and overall tolerance to daily activities . The patient will continue to benefit from ongoing skilled physical therapy to progress toward set goals. PLAN FOR NEXT VISIT: will modify exs and answer additional questions as needed SUBJECTIVE: Patient Reason for Visit: Pt notes that exs were ok but was doing cat ex and it felt a little sore in back Otherwise she has been ok. Pain: Pain Pain Level: 0 Pain Location: Low Back/Lumbar Spine - Left;Low Back/Lumbar Spine - Right Description: Aching Frequency: Intermittent Post Treatment Pain Post Treatment Pain Level: 0 OBJECTIVE MEASURES WITH LEVEL OF FUNCTION: LE Strength R Hip Extension: 3/5 L Hip Extension: 3/5 L Knee Flexion: 5/5 (no pain) TREATMENT: Therapeutic Exercise: 1: pt had performed other exs at home already today 4: TA wtih arm and leg lifts 1# for legs 1x10 5: standing paloff double orange 1x10 B cues for form 6: standing hamstring curls 1x10 B 7: standing double orange stir the pot CW and CCW 1x10 Skilled Intervention: Patient was educated in proper exercise technique and purpose for exercises. Reviewed and educated patient on additions/changes for home exercise program . Skilled judgment was provided in selection of appropriate interventions. Correct performance of therapeutic exercises was facilitated with verbal and visual cuing. Self-Fdc Management: 1: discussed proper posture and seat position for care. Pt given visual examples of good posture and positions vs bad. Also discussed seat settings and use of towel roll . Skilled Intervention: Skilled judgment in the selection of proper modification for activity of daily living/home management based on clinical presentation, deficits, and needs. Educated the patient regarding recommendations and provided written instruction to facilitate compliance. Activity progression based on professional judgement. Home Exercise Program Assigned: 2: stir the pot Billing Therapeutic Exercise Treatment Minutes: 25 Self-Care/Home Management Treatment Minutes: 5 Total Treatment Time Minutes (timed/untimed): 25 Reema Rice [facility]05-26-2022 History of Present illness Narrative* Reema Rice, PT - 03/08/2022 4:52 PM EDT Episode Visit Count: 4 Therapist That Will Oversee The Plan Of Care: Reema Rice PT Start of Care Date: 02/15/22 Onset Date: 01/25/22 (December with back pain from moving at work) Plan of Care Certification Date: 02/15/22 Next Certification Due Date: 03/29/22 Patient Identified by Name and Date of : Yes REHABILITATION AND SPORTS THERAPY PHYSICAL THERAPY TREATMENT NOTE ASSESSMENT: Adan Grady tolerated the session with no issues. She demonstrated improvements in hamstring testing and overall tolerance to daily activities . The patient will continue to benefit from ongoing skilled physical therapy to progress toward set goals. PLAN FOR NEXT VISIT: will modify exs and answer additional questions as needed SUBJECTIVE: Patient Reason for Visit: Pt notes that exs were ok but was doing cat ex and it felt a little sore in back Otherwise she has been ok. Pain: Pain Pain Level: 0 Pain Location: Low Back/Lumbar Spine - Left;Low Back/Lumbar Spine - Right Description: Aching Frequency: Intermittent Post Treatment Pain Post Treatment Pain Level: 0 OBJECTIVE MEASURES WITH LEVEL OF FUNCTION: LE Strength R Hip Extension: 3/5 L Hip Extension: 3/5 L Knee Flexion: 5/5 (no pain) TREATMENT: Therapeutic Exercise: 1: pt had performed other exs at home already today 4: TA wtih arm and leg lifts 1# for legs 1x10 5: standing paloff double orange 1x10 B cues for form 6: standing hamstring curls 1x10 B 7: standing double orange stir the pot CW and CCW 1x10 Skilled Intervention: Patient was educated in proper exercise technique and purpose for exercises. Reviewed and educated patient on additions/changes for home exercise program . Skilled judgment was provided in selection of appropriate interventions. Correct performance of therapeutic exercises was facilitated with verbal and visual cuing. Self-Fdc Management: 1: discussed proper posture and seat position for care. Pt given visual examples of good posture and positions vs bad. Also discussed seat settings and use of towel roll . Skilled Intervention: Skilled judgment in the selection of proper modification for activity of daily living/home management based on clinical presentation, deficits, and needs. Educated the patient regarding recommendations and provided written instruction to facilitate compliance. Activity progression based on professional judgement. Home Exercise Program Assigned: 2: stir the pot Billing Therapeutic Exercise Treatment Minutes: 25 Self-Care/Home Management Treatment Minutes: 5 Total Treatment Time Minutes (timed/untimed): 25 [facility]ema [facility] NoteHNO ID: [id number] Author: Reema Rice PT Service: ? Author Type: Physical Therapist Type: Progress Notes Filed: 03/01/2022 5:06 PM Note Text: Episode Visit Count: 3 Therapist That Will Oversee The Plan Of Care: Reema Rice PT Start of Care Date: 02/15/22 Onset Date: 01/25/22 (December with back pain from moving at work) Plan of Care Certification Date: 02/15/22 Next Certification Due Date: 03/29/22 Patient Identified by Name and Date of : Yes REHABILITATION AND SPORTS THERAPY PHYSICAL THERAPY TREATMENT NOTE ASSESSMENT: Adan Grady tolerated the session with no issues. She demonstrated improvements in tolerance to exs and decreased pain . The patient will continue to benefit from ongoing skilled physical therapy to progress toward set goals. PLAN FOR NEXT VISIT: increase reps, check resisted hamstring SUBJECTIVE: Patient Reason for Visit: Pt notes that she has forgotten to exercise some days. able to do them today with no pain Pain: Pain Pain Level: 0 Pain Location: Low Back/Lumbar Spine - Left;Low Back/Lumbar Spine - Right Description: Aching Frequency: Intermittent Post Treatment Pain Post Treatment Pain Level: 0 OBJECTIVE MEASURES WITH LEVEL OF FUNCTION: no pain right with prone hip extension TREATMENT: Therapeutic Exercise: 1: hookying TA 1x10 2: TA with arm lifts 1#1x10 3: TA hooklying wtih bent knee fall outs 1x10. cues for form 4: TA wtih arm and leg lifts 1# for legs 1x10 5: standing paloff double orange 1x10 B cues for form 6: standing hamstring curls 1x10 B 7: prone hip extension 1x6 wtih right lumbar discomfort Skilled Intervention: Patient was educated in proper exercise technique and purpose for exercises. Reviewed and educated patient on additions/changes for home exercise program . Skilled judgment was provided in selection of appropriate interventions. Provided written instruction for home exercise program to facilitate proper performance and compliance. Correct performance of therapeutic exercises was facilitated with verbal and visual cuing. Patient education as noted. Home Exercise Program Assigned: 1: paloff 2: standing hamstring curls 3: prone hip extension Billing Therapeutic Exercise Treatment Minutes: 30 Total Treatment Time Minutes (timed/untimed): 30 Reema Rice [facility]05-19-2022 History of Present illness Narrative* Reema Rice, PT - 03/01/2022 5:05 PM EDT Episode Visit Count: 3 Therapist That Will Oversee The Plan Of Care: Reema Rice PT Start of Care Date: 02/15/22 Onset Date: 01/25/22 (December with back pain from moving at work) Plan of Care Certification Date: 02/15/22 Next Certification Due Date: 03/29/22 Patient Identified by Name and Date of : Yes REHABILITATION AND SPORTS THERAPY PHYSICAL THERAPY TREATMENT NOTE ASSESSMENT: Adan Grady tolerated the session with no issues. She demonstrated improvements in tolerance to exs and decreased pain . The patient will continue to benefit from ongoing skilled physical therapy to progress toward set goals. PLAN FOR NEXT VISIT: increase reps, check resisted hamstring SUBJECTIVE: Patient Reason for Visit: Pt notes that she has forgotten to exercise some days. able to do them today with no pain Pain: Pain Pain Level: 0 Pain Location: Low Back/Lumbar Spine - Left;Low Back/Lumbar Spine - Right Description: Aching Frequency: Intermittent Post Treatment Pain Post Treatment Pain Level: 0 OBJECTIVE MEASURES WITH LEVEL OF FUNCTION: no pain right with prone hip extension TREATMENT: Therapeutic Exercise: 1: hookying TA 1x10 2: TA with arm lifts 1#1x10 3: TA hooklying wtih bent knee fall outs 1x10. cues for form 4: TA wtih arm and leg lifts 1# for legs 1x10 5: standing paloff double orange 1x10 B cues for form 6: standing hamstring curls 1x10 B 7: prone hip extension 1x6 wtih right lumbar discomfort Skilled Intervention: Patient was educated in proper exercise technique and purpose for exercises. Reviewed and educated patient on additions/changes for home exercise program . Skilled judgment was provided in selection of appropriate interventions. Provided written instruction for home exercise program to facilitate proper performance and compliance. Correct performance of therapeutic exercises was facilitated with verbal and visual cuing. Patient education as noted. Home Exercise Program Assigned: 1: paloff 2: standing hamstring curls 3: prone hip extension Billing Therapeutic Exercise Treatment Minutes: 30 Total Treatment Time Minutes (timed/untimed): 30 Reema Rice PT [facility] NoteHNO ID: [id number] Author: Reema Rice PT Service: ? Author Type: Physical Therapist Type: Progress Notes Filed: 02/22/2022 4:48 PM Note Text: Episode Visit Count: 2 Therapist That Will Oversee The Plan Of Care: Reema Rice PT Start of Care Date: 02/15/22 Onset Date: 01/25/22 (December with back pain from moving at work) Plan of Care Certification Date: 02/15/22 Next Certification Due Date: 03/29/22 Patient Identified by Name and Date of : Yes REHABILITATION AND SPORTS THERAPY PHYSICAL THERAPY TREATMENT NOTE ASSESSMENT: Adan Grady tolerated the session with difficulty with some exs . She demonstrated improvements in tolerance to hooklying TA series. . The patient will continue to benefit from ongoing skilled physical therapy to progress toward set goals. PLAN FOR NEXT VISIT: consider cindysebas SUBJECTIVE: Patient Reason for Visit: Pt notes that she has no pain today; Pain: Pain Pain Level: 0 Pain Location: Low Back/Lumbar Spine - Left;Low Back/Lumbar Spine - Right Description: Aching Frequency: Intermittent Post Treatment Pain Post Treatment Pain Level: No Change OBJECTIVE MEASURES WITH LEVEL OF FUNCTION: Pt with pain in right lumbar, buttock region at times during session TREATMENT: Therapeutic Exercise: 1: hookying TA 1x10 2: TA with arm lifts 1x10 3: TA hooklying wtih bent knee fall outs 1x10 4: TA wtih arm and leg lifts 1x10 5: standing hip extensoin 1x10 6: standing hamstring curls 1x10 B 7: prone hip extension 1x6 wtih right lumbar discomfort 8: trial of bridges painful in upper back so discontinued Skilled Intervention: Patient was educated in proper exercise technique and purpose for exercises. Reviewed and educated patient on additions/changes for home exercise program . Skilled judgment was provided in selection of appropriate interventions. Provided written instruction for home exercise program to facilitate proper performance and compliance. Correct performance of therapeutic exercises was facilitated with verbal and visual cuing. Patient education as noted. Home Exercise Program Assigned: 1: TA series as noted above in hooklying Billing Therapeutic Exercise Treatment Minutes: 30 Total Treatment Time Minutes (timed/untimed): 30 Reema Rice [facility]05-12-2022 History of Present illness Narrative* Reema Rice, PT - 02/22/2022 4:46 PM EDT Episode Visit Count: 2 Therapist That Will Oversee The Plan Of Care: Reema Rice PT Start of Care Date: 02/15/22 Onset Date: 01/25/22 (December with back pain from moving at work) Plan of Care Certification Date: 02/15/22 Next Certification Due Date: 03/29/22 Patient Identified by Name and Date of : Yes REHABILITATION AND SPORTS THERAPY PHYSICAL THERAPY TREATMENT NOTE ASSESSMENT: Adan Grady tolerated the session with difficulty with some exs . She demonstrated improvements in tolerance to hooklying TA series. . The patient will continue to benefit from ongoing skilled physical therapy to progress toward set goals. PLAN FOR NEXT VISIT: consider aleja SUBJECTIVE: Patient Reason for Visit: Pt notes that she has no pain today; Pain: Pain Pain Level: 0 Pain Location: Low Back/Lumbar Spine - Left;Low Back/Lumbar Spine - Right Description: Aching Frequency: Intermittent Post Treatment Pain Post Treatment Pain Level: No Change OBJECTIVE MEASURES WITH LEVEL OF FUNCTION: Pt with pain in right lumbar, buttock region at times during session TREATMENT: Therapeutic Exercise: 1: hookying TA 1x10 2: TA with arm lifts 1x10 3: TA hooklying wtih bent knee fall outs 1x10 4: TA wtih arm and leg lifts 1x10 5: standing hip extensoin 1x10 6: standing hamstring curls 1x10 B 7: prone hip extension 1x6 wtih right lumbar discomfort 8: trial of bridges painful in upper back so discontinued Skilled Intervention: Patient was educated in proper exercise technique and purpose for exercises. Reviewed and educated patient on additions/changes for home exercise program . Skilled judgment was provided in selection of appropriate interventions. Provided written instruction for home exercise program to facilitate proper performance and compliance. Correct performance of therapeutic exercises was facilitated with verbal and visual cuing. Patient education as noted. Home Exercise Program Assigned: 1: TA series as noted above in hooklying Billing Therapeutic Exercise Treatment Minutes: 30 Total Treatment Time Minutes (timed/untimed): 30 Reema Rice PT [facility] NoteHNO ID: [id number] Author: Reema Rice PT Service: ? Author Type: Physical Therapist Type: Progress Notes Filed: 02/15/2022 12:33 PM Note Text: Episode Visit Count: 1 Therapist That Will Oversee The Plan Of Care: Reema Rice PT Start of Care Date: 02/15/22 Onset Date: 01/25/22 (December with back pain from moving at work) Plan of Care Certification Date: 02/15/22 Next Certification Due Date: 03/29/22 Patient Identified by Name and Date of : Yes REHABILITATION AND SPORTS THERAPY PHYSICAL THERAPY EVALUATION PLAN OF CARE: Assessment: Adan Grady presents with diagnosis of left low back pain that interferes with physical activities;lifting . She presents with impairments in flexibility, independence in exercise, overall function, range of motion and strength . Pt with some indications that part of pain is in hamstring mm. and others from low back .. Prognosis for therapy is Excellent due to: current objective clinical presentation;good overall health status . She will benefit from skilled therapy services to meet the goals established for this plan of care as noted below. Classification Low Back Pain Subgroup Classification: Core stabilization subgroup: recommended visits 10. Core Stabilization Subgroup Classification based on: pain with transitional movements Goals for Episode of Care: created on 02/15/22 through 03/29/22 Independent in home exercises. Stand / Walk normal speeds without pain/symptoms. Maintain proper sitting posture throughout session Patient will be able to tolerate functional activities including driving without increased symptoms. Knowledgeable regarding prophylaxis. Patient will increase strength of core and hips to 5/5 to allow for improve ability to complete ADLs. Patient will increase flexibility of hamstrings left to equal unaffected extremity/side to improve mechanics and decrease pain. Patient Goals: Exercise routine to fix things . Planned Interventions, Frequency, and Duration: Current Frequency: 1x/week Duration: 4 weeks Total Number of Visits Planned: 4 Planned Treatment Interventions: Therapeutic exercise (91530);Neuromuscular re-education (60692);Manual therapy (85952);Self-penitentiary management (40036);Patient/Family/Caregiver Education PLAN FOR NEXT VISIT: Will add TA with arm lifts , marches, standing hamstring curls and hamstring stretch Patient demonstrates good understanding of plan of care and treatment. The above goals and plan of care were discussed and agreed upon by patient/family. SUBJECTIVE: Adan Grady is a 66 year old female seen today for Pt with some back pain back in December, several weeks ago had onset of left back and buttock to back of thigh to knee . Then shifted right side and felt weakness in calf region Patient Goals: Exercise routine to fix things . 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 Infection Clinical Reasoning: No identified risk factors. Red Flags - Cervical Infection Clinical Reasoning: No identified risk factors. Spine History Symptoms Location at Onset: Back;Buttock Pain is Worse Always: (using clutch of car) Pain is Worse Sometimes: Walking (had to walk with smaller steps) Sleeping Position: Side lying right;Side lying left Sleep Affected by Pain: Not affected by pain Pain: Pain Pain Level: 3 Pain Location: Low Back/Lumbar Spine - Left;Buttocks - Left;Thigh - Left Description: Aching;Shooting Frequency: Intermittent Post Treatment Pain Post Treatment Pain Level: No Change Post Treatment Pain Location: Low Back/Lumbar Spine - Right;Low Back/Lumbar Spine - Left PROMIS Scales T-scores: mean of general population = 50. 5 points is clinically meaningfully difference Percentiles provide an indication of how the patient's score ranks in relation to the general population. Higher percentile rankings indicate better function/quality of life. 50th percentile is the average of the general population and indicates half of respondents had a worse score. T-scores: mean of general population = 50. 5 points is clinically meaningfully difference Percentiles provide an indication of how the patient's score ranks in relation to the general population. Higher percentile rankings indicate better function/quality of life. 50th percentile is the average of the general population and indicates half of respondents had a worse score. (more content not included)...[facility] [place]05-05-2022 History of Present illness Narrative* Reema Rice, PT - 02/15/2022 12:28 PM EDT Episode Visit Count: 1 Therapist That Will Oversee The Plan Of Care: Reema Rice PT Start of Care Date: 02/15/22 Onset Date: 01/25/22 (December with back pain from moving at work) Plan of Care Certification Date: 02/15/22 Next Certification Due Date: 03/29/22 Patient Identified by Name and Date of : Yes REHABILITATION AND SPORTS THERAPY PHYSICAL THERAPY EVALUATION PLAN OF CARE: Assessment: Adan Grady presents with diagnosis of left low back pain that interferes with physical activities;lifting . She presents with impairments in flexibility, independence in exercise, overall function, range of motion and strength . Pt with some indications that part of pain is in hamstring mm. and others from low back .. Prognosis for therapy is Excellent due to: current objective clinical presentation;good overall health status . She will benefit from skilled therapy services to meet the goals established for this plan of care as noted below. Classification Low Back Pain Subgroup Classification: Core stabilization subgroup: recommended visits 10. Core Stabilization Subgroup Classification based on: pain with transitional movements Goals for Episode of Care: created on 02/15/22 through 03/29/22 Independent in home exercises. Stand / Walk normal speeds without pain/symptoms. Maintain proper sitting posture throughout session Patient will be able to tolerate functional activities including driving without increased symptoms. Knowledgeable regarding prophylaxis. Patient will increase strength of core and hips to 5/5 to allow for improve ability to complete ADLs. Patient will increase flexibility of hamstrings left to equal unaffected extremity/side to improve mechanics and decrease pain. Patient Goals: Exercise routine to fix things . Planned Interventions, Frequency, and Duration: Current Frequency: 1x/week Duration: 4 weeks Total Number of Visits Planned: 4 Planned Treatment Interventions: Therapeutic exercise (37769);Neuromuscular re- education (15482);Manual therapy (16456);Self-penitentiary management (90989);Patient/Family/Caregiver Education PLAN FOR NEXT VISIT: Will add TA with arm lifts , marches, standing hamstring curls and hamstring stretch Patient demonstrates good understanding of plan of care and treatment. The above goals and plan of care were discussed and agreed upon by patient/family. SUBJECTIVE: Adan Grady is a 66 year old female seen today for Pt with some back pain back in December, several weeks ago had onset of left back and buttock to back of thigh to knee . Then shifted right side and felt weakness in calf region Patient Goals: Exercise routine to fix things . 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 Infection Clinical Reasoning: No identified risk factors. Red Flags - Cervical Infection Clinical Reasoning: No identified risk factors. Spine History Symptoms Location at Onset: Back;Buttock Pain is Worse Always: (using clutch of car) Pain is Worse Sometimes: Walking (had to walk with smaller steps) Sleeping Position: Side lying right;Side lying left Sleep Affected by Pain: Not affected by pain Pain: Pain Pain Level: 3 Pain Location: Low Back/Lumbar Spine - Left;Buttocks - Left;Thigh - Left Description: Aching;Shooting Frequency: Intermittent Post Treatment Pain Post Treatment Pain Level: No Change Post Treatment Pain Location: Low Back/Lumbar Spine - Right;Low Back/Lumbar Spine - Left PROMIS Scales T-scores: mean of general population = 50. 5 points is clinically meaningfully difference Percentiles provide an indication of how the patient's score ranks in relation to the general population. Higher percentile rankings indicate better function/quality of life. 50th percentile is the average of the general population and indicates half of respondents had a worse score. T-scores: mean of general population = 50. 5 points is clinically meaningfully difference Percentiles provide an indication of how the patient's score ranks in relation to the general population. Higher percentile rankings indicate better function/quality of life. 50th percentile is the average of the general population and indicates half of respondents had a worse score. OBJECTIVE MEASURES WITH LEVEL OF FUNCTION: Posture / Alignment Posture: (normal lordosis) Lumbo - Pelvic Alignment: left IC high in standing. Spine Observations R Lumbar Spine Palpation Tenderness: Paraspinals L Lumbar Spine Palpation Tenderness: PSIS (posterior superior iliac spine);Paraspinals Lumbar Spine AROM Lumbar Flexion: Normal (discomfort in hamstrings) Lumbar Extension: Minimal limitation Lumbar R Side-Bend: Normal Lumbar L Side-Bend: Normal;End range pain (at left PSIS) Static Testing - Lumbar Sit Erect: better Lying Prone In Extension: better LE Flexibility Flexibility: Hamstring Flexibility R Hamstring Flexibility: 80 L Hamstring Flexibility: 68 LE Strength Trunk Strength: 3+/5 R Hip Extension: 3-/5 R Hip Flexion (L2): 5/5 R Hip Internal Rotation: 5/5 R Hip External Rotation: 5/5 R Ankle Dorsiflexion (L4): 5/5 L Hip Extension: 3-/5 L Hip Flexion (L2): 5/5 L Hip Internal Rotation: 5/5 L Hip External Rotation: 5/5 L Knee Extension (L3): 5/5 L Knee Flexion: 4+/5 (with reproduction of pain) L Ankle Dorsiflexion (L4): 5/5 Functional Strength Functional Strength: no deficits noted. slight pain with walking quickly Special Tests - Hip and Spine Hip and Spine Special Tests: SLR Test SLR Test: Right Negative;Left Negative Gait Weight Bearing Status: FWB Gait: Independent Gait Observation: no deviations Education: Education Learning Preferences: Demonstration;Explanation;Performance;Printed Materials Barriers: None Learning/educational needs: Home exercise program;Plan of Care Education Provided: Yes, see treatment interventions for education provided Education Provided To: Patient Education Mode/Type: Demonstration;Explanation/Discussion;Literature/Printed Materials;Performance Response to Education/Teach Back: States/Identifies;Return Demonstration TREATMENT: PT Treatment Interventions: Therapeutic Exercise Evaluation Therapeutic Exercise: 1: seated TA 1x10 2: trial of hooklying TA but pt activates gluteal which bothered back 3: standing hip extension 1x10 B 4: prone lying as needed for sx into thigh Skilled Intervention: Patient was educated in proper exercise technique and purpose for exercises. Skilled judgment was provided in selection of appropriate interventions. Provided written instruction for home exercise program to facilitate proper performance and compliance. Correct performance of therapeutic exercises was facilitated with verbal and visual cuing. Educated patient on rationale for performing exercises in regards to ROM and function . Patient education as noted. Home Exercise Program Assigned: 1: as outlined above 2: lumbar roll for sitting Billing * Evaluation Low Complexity: 1 Unit Therapeutic Exercise Treatment Minutes: 30 Total Treatment Time Minutes (timed/untimed): 30 Reema Rice PT [facility] History of Present illness Narrative* 66 year old female presenting for back pain. * Onset a couple of days ago. * lower back pain, buttock pain that radiates down her leg. * Thought it was sciatic pain on left side. * Pain moved to other side. * Now had bilateral calf weakness or heaviness * She was having groin pain. some radiating pain from hips * She felt fine until today when she got in her car. * SHe is planning a trip soon. wants to get her back in better sip before drives to [place] * No numbness, tingling. * No deformity. * Denies injury. [facility] Work Phone: [phone]) 802-874911-05-2021 NoteHNO ID: [id number] Author: Dominique Watts RRT Service: ? Author Type: Respiratory Therapist Type: Progress Notes Filed: 08/18/2021 1:48 PM Note Text: PULM FUNCTION SMARTBLOCK: Provider: Nubia Barlow MD Assisting Tech: Dominique Watts RRT Exhaled Nitric Oxide: 1 System: [id number] [place]11-05-2021 NoteHNO ID: [id number] Author: Dominique Watts RRT Service: ? Author Type: Respiratory Therapist Type: Procedures Filed: 08/18/2021 1:47 PM Note Text: RESPIRATORY THERAPY ORAL EXHALED NITRIC OXIDE SERVICE DATE: 08/18/2021 SERVICE TIME: 1:47 PM Oral Exhaled Nitric Oxide measurement: 14.0 (ppb) Normal: Adult 5-20 ppb, pediatric (<12 years) 5-15 ppb High Normal / Increased: Adult 20-35 ppb, pediatric (<12 years) 15-25 ppb Moderately raised exhaled Nitric Oxide may indicate underlying inflammation, but note that: Cold and influenza can raise exhaled Nitric Oxide and some patients have higher baseline exhaled Nitric Oxide levels than others. High: Adult >35 ppb, pediatric (<12 years) >25 ppb Indicative of ongoing eosinophilic inflammation. Symptomatic patient likely to respond to steroids. Possible causes (if already on steroids): Poor compliance, recent allergen exposure, steroid dose inadequate, and steroid resistance. Note that not all patients with high exhaled nitric oxide levels display symptoms. Oral Exhaled Nitric Oxide measurement (Previous Encounters) Test Date Oral Exhaled Nitric Oxide (ppb) 08/18/2021 14.0 NAME: Dominique Watts RRT PATIENT NAME: Adan Grady DATE: August 18, 2021 TIME: 1:47 [facility]11-05-2021 NoteProcedure (PULMWS) FATOUMATAADAN Re ([id number]) 1955 F Date Time Provider Department 08/18/21 1:30 PM RESPIRATORY THERAPIST [facility] WSTRPULMWS During your visit today, we recorded the following information about you: Dominique Watts RRT 08/18/2021 1:47 PM Signed RESPIRATORY THERAPY ORAL EXHALED NITRIC OXIDE SERVICE DATE: 08/18/2021 SERVICE TIME: 1:47 PM Oral Exhaled Nitric Oxide measurement: 14.0 (ppb) Normal: Adult 5-20 ppb, pediatric (<12 years) 5-15 ppb High Normal / Increased: Adult 20-35 ppb, pediatric (<12 years) 15-25 ppb Moderately raised exhaled Nitric Oxide may indicate underlying inflammation, but note that: Cold and influenza can raise exhaled Nitric Oxide and some patients have higher baseline exhaled Nitric Oxide levels than others. High: Adult >35 ppb, pediatric (<12 years) >25 ppb Indicative of ongoing eosinophilic inflammation. Symptomatic patient likely to respond to steroids. Possible causes (if already on steroids): Poor compliance, recent allergen exposure, steroid dose inadequate, and steroid resistance. Note that not all patients with high exhaled nitric oxide levels display symptoms. Oral Exhaled Nitric Oxide measurement (Previous Encounters) Test Date Oral Exhaled Nitric Oxide (ppb) 08/18/2021 14.0 NAME: Dominique Watts RRT PATIENT NAME: Adan Grady DATE: August 18, 2021 TIME: 1:47 PM Dominique Watts RRT 08/18/2021 1:48 PM Signed PULM FUNCTION SMARTBLOCK: Provider: Nubia Barlow MD Assisting Tech: Dominique Watts RRT Exhaled Nitric Oxide: 1 System: [id number] Referring Provider: NUBIA BARLOW [[id number]] Allergies As of Date: 08/18/2021 Noted Allergy Reaction BEXTRA (VALDECOXIB) 10/22/2005 8 - GI Upset molds [Other] 01/03/2006 Date Reviewed: 08/18/2021 Reviewed by: Katheryn Matthew RN - Fully Assessed Reason for Visit: Spirometry [191] Visit Diagnosis:SOB (shortness of breath) [R06.02] Order(s):NITRIC OXIDE, EXHALED [0837391] Order #: [id number]: 1 Prescriptions as of 08/18/2021 - levothyroxine 88 mcg cap Take 88 mcg by mouth daily before breakfast. - montelukast (SINGULAIR) 10 mg tablet Take 10 mg by mouth daily at bedtime. - venlafaxine hcl(EFFEXOR XR 75 MG 24 HR CAP) Take one(1) tablet daily. - SELENIUM SULFIDE 2.5 % SHAMPOO Use as directed. - eflornithine hcl(VANIQA 13.9 % TOPICAL CREAM) Use as directed. - mometasone furoate(NASONEX 50 MCG/ACTUATION SPRAY) 2 sprays each nostril daily - loratadine (CLARITIN) 10 mg ORAL Tab Take one(1) tablet daily. As needed. - THERAPEUTIC MULTIVITAMIN TAB Take one(1) tablet daily. - ALBUTEROL 90 MCG/ACTUATION AEROSOL INHALER 2 puffs every four (4) hours as needed Problem List As Of Date 08/18/2021 Noted Resolved ALLERGIC RHINITIS NOS [J30.9] ASTHMA UNSPECIFIED [J45.909] BENIGN NEOPLASM LG BOWEL [D12.6] 06/12/2007 GASTROINTEST HEMORR NOS [K92.2] 06/12/2007 INT HEMORRHOID W/O COMPL [K64.8] 06/12/2007 DIVERTICULOSIS OF COLON W/O BLEED [K57.30] 06/12/2007 Encounter Status:Closed by DOMINIQUE WATTS on 08/18/21[facility] [place] 08-18-2021 NoteHNO ID: [id number] Author: Nubia Barlow MD Service: ? Author Type: Physician Type: Progress Notes Filed: 08/18/2021 3:29 PM Note Text: . Respiratory [place] Note Patient name: Adan Grady PCP: [place] MD Referring Physician: natalya CC: Shortness of breath HPI: Adan Grady 66 year old female non-smoker with PMH significant for exercise-induced asthma, surgical induced hypothyroidism, allergic rhinitis who was referred today for evaluation of intermittent shortness of breath and tachycardia. Pulmonary history dates back 20 years ago when she was first diagnosed with asthma due to shortness of breath, chest tightness and associated with a bike trip. She was started on albuterol at that time and has used albuterol only when needed, usually during allergy season. She has never required immunotherapy or biologic therapy for her asthma and allergies. She has never required inhaled corticosteroids, oral steroids or hospitalization. She has had 2 episodes of significant shortness of breath and tachycardia not induced by activity/exercise. The second episode may have been triggered by blood donation. She has had cardiac work-up including stress test and echocardiogram which were unremarkable. CTA of her chest showed no evidence of pulmonary emboli and lung parenchyma was normal. Since her cardiac evaluation was negative, she is being referred for evaluation of her underlying lung disease. She was recently started on Singulair which has improved her intermittent dyspnea. In fact, she was told to hold her Singulair for her pulmonary function testing today and noted shortness of breath when climbing stairs. Pulmonary function test showed no obstruction and her exhaled nitric oxide level does not suggest active eosinophilic airways inflammation. DATA: RESPIRATORY THERAPY ORAL EXHALED NITRIC OXIDE? SERVICE DATE: 08/18/2021 SERVICE TIME: 1:47 PM? Oral Exhaled Nitric Oxide measurement: 14.0 (ppb) ? PFT today: Pulmonary function test today are normal, no obstruction Labs: Recent labs show normal CBC and no eosinophilia Imaging / Diagnostic Studies: CT/CTA Chest W/WO Contrast 05/22/21 [facility] IMPRESSION: 1. No acute findings. No pulmonary embolism or arterial dissection. 2. Hepatic steatosis. I personally reviewed the images of her chest CT which show normal lung parenchyma PAST MEDICAL HISTORY Diagnosis Date - Allergic rhinitis, cause unspecified Allergic rhinitis - Benign neoplasm of colon - Diverticulosis of colon (without mention of hemorrhage) - Exercise-induced asthma - Hypothyroidism ALLERGIES Allergen Reactions - Bextra [Valdecoxib] GI Upset - Molds [Other] levothyroxine 88 mcg cap Take 88 mcg by mouth daily before breakfast. montelukast (SINGULAIR) 10 mg tablet Take 10 mg by mouth daily at bedtime. mometasone furoate(NASONEX 50 MCG/ACTUATION SPRAY) 2 sprays each nostril daily loratadine (CLARITIN) 10 mg ORAL Tab Take one(1) tablet daily. As needed. THERAPEUTIC MULTIVITAMIN TAB Take one(1) tablet daily. 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 FAMILY HISTORY Problem Relation Age of Onset - Thyroid Mother graves disease - Hypertension Father orthostatic and tia's - other (Shy Drager) Father - Breast Cancer Maternal Grandmother - Breast Cancer Paternal Grandmother unsure PAST SURGICAL HISTORY Procedure Laterality Date - APPENDECTOMY - COLONOSCOP W/ OR W/O [facility] SPEC 06/12/2007 Colonoscopy - DANDC, DIAG AND/OR THERAPEUTIC Dilation AND curettage - REMOVAL OF OVARY(S) with the right remaining, but no tube - THYROIDECTOMY SUBTOTAL/PARTIAL 12/2016 - TOTAL ABDOM HYSTERECTOMY Hysterectomy, ALBERTO PMH, Social history, family history and surgical history reviewed and updated in EMR REVIEW OF SYSTEMS: CONSTITUTIONAL: No fevers, chills, nightsweats, unintended weight loss HEENT: Denies headaches. Some nasal congestion/sinus symptoms, problematic allergy problems. EYES: No diplopia or blurry vision, itchy eyes CARDIOVASCULAR: Intermittent chest pain, tachycardia and dyspnea on exertion but no palpitations or edema PULM: See HPI GI: No dysphagia/odynophagia,reflux, : No urinary complaints NEURO: No new balance problems, peripheral weakness/paresthesias or numbness of concern. MUSC-SKEL: No joint pain, swelling, or erythema. PSY: No concerns regarding depression, anxiety INTEGUMENTARY: No new skin changes, skin sensitivity, skin rashes PHYSICAL EXAMINATION: BP 150/71 Pulse 70 Resp 14 Ht 5' 6.1 (1.68m) Wt 190 lb (86.2kg) SpO2 99% BMI 30.57 kg/(m2). General Appearance: Age-appropriate female no acute (more content not included)...[facility]11-05-2021 NoteHNO ID: [id number] Author: Dominique Watts RRT Service: ? Author Type: Respiratory Therapist Type: Progress Notes Filed: 08/18/2021 12:56 PM Note Text: PULM FUNCTION SMARTBLOCK: Provider: Nubia Barlow MD Assisting Tech: Dominique Watts RRT Spirometry: 1 System: [id number]11-05-2021 NoteProcedure (PULMWS) ADAN GRADY ([id number]) 1955 F Date Time Provider Department 08/18/21 12:45 PM RESPIRATORY THERAPIST [facility] WSTRPULMWS During your visit today, we recorded the following information about you: Pulse Respiration Weight Height 71/minute 16/minute 86.2 kg 1.679 m Dominique Watts RRT 08/18/2021 12:56 PM Signed PULM FUNCTION SMARTBLOCK: Provider: Nubia Barlow MD Assisting Tech: Dominique Watts RRT Spirometry: 1 System: [id number] Referring Provider: SELF [200] Allergies As of Date: 08/18/2021 Noted Allergy Reaction BEXTRA (VALDECOXIB) 10/22/2005 8 - GI Upset molds [Other] 01/03/2006 Date Reviewed: 08/18/2021 Reviewed by: Dominique Watts RRT - Fully Assessed Reason for Visit: Spirometry [191] Visit Diagnosis:SOB (shortness of breath) [R06.02] Order(s):SPIROMETRY WITH DILATOR IF OBSTRUCTED [[id number]] Order #: [id number]: 1 Prescriptions as of 08/18/2021 - venlafaxine hcl(EFFEXOR XR 75 MG 24 HR CAP) Take one(1) tablet daily. - SELENIUM SULFIDE 2.5 % SHAMPOO Use as directed. - eflornithine hcl(VANIQA 13.9 % TOPICAL CREAM) Use as directed. - mometasone furoate(NASONEX 50 MCG/ACTUATION SPRAY) 2 sprays each nostril daily - loratadine (CLARITIN) 10 mg ORAL Tab Take one(1) tablet daily. As needed. - THERAPEUTIC MULTIVITAMIN TAB Take one(1) tablet daily. - ALBUTEROL 90 MCG/ACTUATION AEROSOL INHALER 2 puffs every four (4) hours as needed Problem List As Of Date 08/18/2021 Noted Resolved ALLERGIC RHINITIS NOS [J30.9] ASTHMA UNSPECIFIED [J45.909] BENIGN NEOPLASM LG BOWEL [D12.6] 06/12/2007 GASTROINTEST HEMORR NOS [K92.2] 06/12/2007 INT HEMORRHOID W/O COMPL [K64.8] 06/12/2007 DIVERTICULOSIS OF COLON W/O BLEED [K57.30] 06/12/2007 Encounter Status:Closed by DOMINIQUE WATTS on 08/18/21[facility] 08-18-2021 History of Present illness Narrative* Dominique Watts RRT - 08/18/2021 1:47 PM EDT PULM FUNCTION SMARTBLOCK: Provider: Nubia Barlow MD Assisting Tech: Dominique Watts RRT Exhaled Nitric Oxide: 1 System: [id number] [facility] Procedure note* Dominique Watts RRT - 08/18/2021 1:47 PM EDT Associated Order(s): NITRIC OXIDE, EXHALED RESPIRATORY THERAPY ORAL EXHALED NITRIC OXIDE SERVICE DATE: 08/18/2021 SERVICE TIME: 1:47 PM Oral Exhaled Nitric Oxide measurement: 14.0 (ppb) Normal: Adult 5-20 ppb, pediatric (<12 years) 5-15 ppb High Normal / Increased: Adult 20-35 ppb, pediatric (<12 years) 15-25 ppb Moderately raised exhaled Nitric Oxide may indicate underlying inflammation, but note that: Cold and influenza can raise exhaled Nitric Oxide and some patients have higher baseline exhaled Nitric Oxide levels than others. High: Adult >35 ppb, pediatric (<12 years) >25 ppb Indicative of ongoing eosinophilic inflammation. Symptomatic patient likely to respond to steroids. Possible causes (if already on steroids): Poor compliance, recent allergen exposure, steroid dose inadequate, and steroid resistance. Note that not all patients with high exhaled nitric oxide levels display symptoms. Oral Exhaled Nitric Oxide measurement (Previous Encounters) Test Date Oral Exhaled Nitric Oxide (ppb) 08/18/2021 14.0 NAME: Dominique Watts RRT PATIENT NAME: Adan Grady DATE: August 18, 2021 TIME: 1:47 PM [facility] History of Present illness Narrative* Nubia Barlow MD - 08/18/2021 1:30 PM EDT Images from the original note were not included. . [facility] [place] Note Patient name: Adan Grady PCP: La Park MD Referring Physician: same CC: Shortness of breath HPI: Adan Grady 66 year old female non-smoker with PMH significant for exercise-induced asthma, surgical induced hypothyroidism, allergic rhinitis who was referred today for evaluation of intermittent shortness of breath and tachycardia. Pulmonary history dates back 20 years ago when she was first diagnosed with asthma due to shortness of breath, chest tightness and associated with a bike trip. She was started on albuterol at that time and has used albuterol only when needed, usually during allergy season. She has never required immunotherapy or biologic therapy for her asthma and allergies. She has never required inhaled corticosteroids, oral steroids or hospitalization. She has had 2 episodes of significant shortness of breath and tachycardia not induced by activity/exercise. The second episode may have been triggered by blood donation. She has had cardiac work-up including stress test and echocardiogram which were unremarkable. CTA of her chest showed no evidence of pulmonary emboli and lung parenchyma was normal. Since her cardiac evaluation was negative, she is being referred for evaluation of her underlying lung disease. She was recently started on Singulair which has improved her intermittent dyspnea. In fact, she was told to hold her Singulair for her pulmonary function testing today and noted shortness of breath when climbing stairs. Pulmonary function test showed no obstruction and her exhaled nitric oxide level does not suggest active eosinophilic airways inflammation. DATA: RESPIRATORY THERAPY ORAL EXHALED NITRIC OXIDE SERVICE DATE: 08/18/2021 SERVICE TIME: 1:47 PM Oral Exhaled Nitric Oxide measurement: 14.0 (ppb) PFT today: Pulmonary function test today are normal, no obstruction Labs: Recent labs show normal CBC and no eosinophilia Imaging / Diagnostic Studies: CT/CTA Chest W/WO Contrast 05/22/21 [facility] IMPRESSION: 1. No acute findings. No pulmonary embolism or arterial dissection. 2. Hepatic steatosis. I personally reviewed the images of her chest CT which show normal lung parenchyma PAST MEDICAL HISTORY Diagnosis Date Allergic rhinitis, cause unspecified Allergic rhinitis Benign neoplasm of colon Diverticulosis of colon (without mention of hemorrhage) Exercise-induced asthma Hypothyroidism ALLERGIES Allergen Reactions Bextra [Valdecoxib] GI Upset Molds [Other] levothyroxine 88 mcg cap Take 88 mcg by mouth daily before breakfast. montelukast (SINGULAIR) 10 mg tablet Take 10 mg by mouth daily at bedtime. mometasone furoate(NASONEX 50 MCG/ACTUATION SPRAY) 2 sprays each nostril daily loratadine (CLARITIN) 10 mg ORAL Tab Take one(1) tablet daily. As needed. THERAPEUTIC MULTIVITAMIN TAB Take one(1) tablet daily. 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 Pets: Cat FAMILY HISTORY Problem Relation Age of Onset Thyroid Mother graves disease Hypertension Father orthostatic and tia's other (Shy Drager) Father Breast Cancer Maternal Grandmother Breast Cancer Paternal Grandmother unsure PAST SURGICAL HISTORY Procedure Laterality Date APPENDECTOMY COLONOSCOP W/ OR W/O [facility] SPEC 06/12/2007 Colonoscopy D&C, DIAG AND/OR THERAPEUTIC Dilation & curettage REMOVAL OF OVARY(S) with the right remaining, but no tube THYROIDECTOMY SUBTOTAL/PARTIAL 12/2016 TOTAL ABDOM HYSTERECTOMY Hysterectomy, ALBERTO PMH, Social history, family history and surgical history reviewed and updated in EMR REVIEW OF SYSTEMS: CONSTITUTIONAL: No fevers, chills, nightsweats, unintended weight loss HEENT: Denies headaches. Some nasal congestion/sinus symptoms, problematic allergy problems. EYES: No diplopia or blurry vision, itchy eyes CARDIOVASCULAR: Intermittent chest pain, tachycardia and dyspnea on exertion but no palpitations oredema PULM: See HPI GI: No dysphagia/odynophagia,reflux, : No urinary complaints NEURO: No new balance problems, peripheral weakness/paresthesias or numbness of concern. MUSC-SKEL: No joint pain, swelling, or erythema. PSY: No concerns regarding depression, anxiety INTEGUMENTARY: No new skin changes, skin sensitivity, skin rashes PHYSICAL EXAMINATION: BP 150/71 Pulse 70 Resp 14 Ht 5' 6.1 (1.68m) Wt 190 lb (86.2kg) SpO2 99% BMI 30.57 kg/(m^2). General Appearance: Age-appropriate female no acute distress Skin: Skin color, texture, turgor normal, no suspicious rashes or lesions. Head: Normocephalic, no masses, lesions, tenderness or abnormalities. Eyes: Sclera, conjunctiva normal Oropharynx: Normal dentition, no lesions Neck: No JVD, no masses, no bruits Lungs: Not labored, normal to percussion, no wheezes or crackles Heart: Regular rate and rhythm, no murmurs or gallops Extremities: No edema clubbing Musculoskeletal: No joint swelling, deformity, or tenderness. Neurologic: Alert and oriented, no focal findings Assessment/Plan: 1. Shortness of breath -Rare episodes of shortness of breath associated with tachycardia likely related to her underlying asthma -Pulmonary function tests and exhaled nitric oxide level do not indicate need for chronic inhaled corticosteroids at this time. -Recommend continued as needed albuterol 2. Exercise-induced asthma -See #1 3. Seasonal allergies -Recently started on Singulair -Continue as needed nasal steroids and OTC antihistamine RTC as needed Nubia Barlow MD [facility] [place] [facility] History of Present illness Narrative* Dominique Watts RRT - 08/18/2021 12:53 PM EDT PULM FUNCTION SMARTBLOCK: Provider: Nubia Barlow MD Assisting Tech: Dominique Watts RRT Spirometry: 1 System: [id number] [facility] History of Present illness Narrative* History was obtained from patient: Ms. Grady was seen on order from Kacey Patterson CNP for reported tinnitus and dizziness. * -Reported bilateral tinnitus constantly since around August-September 2021. * -Had previously experienced BPPV and underwent successful canalith repositioning. * -This morning noted approximately 20 minutes of no noticeable tinnitus, but did experience some slight vertigo upon sitting up in bed. * -Denied otalgia, otorrhea, aural fullness, prior otologic surgery, and family history of hearing loss * Patient's preferred language: [place] * Preferred language of the parent, legal guardian or surrogate decision-maker of this minor or incapacitated patient: Not Applicable * No overt signs of domestic violence/neglect/abuse. * No referral made to Nutrition Educator. * Pain not interfering with optimal level of function or ability to assess and/or treat. * Pain Scale rank: 0/10 * Pain Scale used: Numeric * No referral made to primary care provider (PCP). * Factors/Barriers influencing patient's ability to complete assessment or learn: none. * Person taught: patient. * Readiness to learn: no barriers. * Results of Teaching/Counseling: verbalize recall / understanding and teaching complete. [id number] Work Phone: [phone]) 654-935508-08-2021 History of Present illness Narrative* 65 year old female presenting for f/u hospital. spouse dr monte present and gave hx as well * reviewed ER records bw and ct scans w pt and spouse * Was on ER [place] for SOB, chest tightness and bilateral calf pain. * Onset 5 days ago. * Went to ER yesterday. * Checked pulse at home and it was elevated. * Called office and was advised to go to ER. * CT chest and blood work normal from ER. * D- dimer was borderline. * She gets winded at times. in simple activities * Feels this when she is moving around. * Feels irregular heart rateat times * She still has some chest tightness. * She denies cough, post nasal drip, nasal congestion. -[facility] Work Phone: Evaluation note* Diagnosis SOB (shortness of breath) Shortness of breath [facility] Diagnosis SOB (shortness of breath) Shortness of breath [facility]* Diagnosis SOB (shortness of breath)- Primary Shortness of breath Exercise-induced asthma Exercise induced bronchospasm H/O seasonal allergies Other allergy, other than to medicinal agents [facility]* Diagnosis Bilateral low back pain without sciatica, unspecified chronicity- Primary [facility]* Diagnosis Bilateral low back pain without sciatica, unspecified chronicity- Primary [facility]* Diagnosis Bilateral low back pain without sciatica, unspecified chronicity- Primary [facility]* Diagnosis Bilateral low back pain without sciatica, unspecified chronicity- Primary [facility]* Diagnosis Acute cholecystitis- Primary [facility]* Diagnosis Routine general medical examination at a health care facility- Primary Hypothyroidism, unspecified type Asthma, unspecified asthma severity, unspecified whether complicated, unspecified whether persistent documented in this encounter [facility] Work Phone: History of Present illness Narrative* Past Medical, Surgical and Family History: reviewed and updated in chart. * Medications and Supplements: Medications and supplements, including calcium and vitamins reviewed and updated in chart. * No, the patient is not using opioids. * Tobacco use: Non-User * Alcohol use: Non-User * Illicit drug use: Non-User * Current diet: well balanced diet, does consume adequate fluids and does consume caffeine. * Exercise Frequency: occasional * Depression Screening: * Patient Health Questionnaire - 2 (PHQ-2):. * During the past 2 weeks, the patient has not felt down, depressed or hopeless. * During the past 2 weeks, the patient has not felt little interest or pleasure in doing things. * Hearing Impairment: none. * Visual Acuity: IO Vision Screening in results section * Visual Acuity Corrected: right eye 20/15, left eye 20/15. * Cognitive Impairment: No cognitive impairment observed. * Activities of Daily Living: She does not have issues with activities of daily living (e.g. dressing, bathing, walking, shopping, housekeeping, etc.). * Falls Risk Screening: ADAN has not fallen in the last 6 months. * Home safety risk factors: None. * Advance directives:. Patient has living will. Patient has healthcare POA. * Patient's End of Life Decisions: I agree to follow the patient's decisions. * 65 year old female with hx of hypothyroidism presenting for Initial Medicare wellness visit. * Blood work reviewed and discussed. CBCD, CMP, lipid panel, T3, T4, TSH. Labs unremarkable. * On levothyroxine. Doing well. Sees Dr. Mckinney. * Has hx of hysterectomy. * Has one ovary. * She is unsure if she has cervix. * Has not had PAP. * Energy level good. * No cough, cold sxs. * No unusual joint aches or pains. * Sees bankruptcy paralegal. * Has some concerns of retinal detachment. * Possibly cataracts. * Following that. * No chest pain, SOB, leg edema, no headaches or dizziness. Exercise tolerance good. * No ear problems. [facility] Work Phone: History of Present illness Narrative* 65 year old female presenting for f/u after cardiology appt. * Was previously in ER in [place] for SOB, chest pain. * Was referred to cardiology due to chest pain. * She was evaluated and was referred to pulmonology. * No concerns regarding heart health. * Possibly respiratory etiology. * Has tendency for asthma. * Reports her eyes are overall healthy. * States her eye doctor has written glaucoma on her diagnosis. 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 * Sees little floaters at times. * She reports constant headaches. * Feels winded at times. * Has used montelukast at bedtime in the past prescribed by her previous doctor. * She is planning a trip in some weeks to [facility]. [facility] Work Phone: history of Present illness Narrative* 65 year old female presenting for f/u after cardiology appt. * Was previously in ER in [place] for SOB, chest pain. * Was referred to cardiology due to chest pain. * She was evaluated and was referred to pulmonology. * No concerns regarding heart health. * Possibly respiratory etiology. * Has tendency for asthma. * has nasal congestion/ rhinorrhea in high pollen areas and occ headaches more recent * Reports her eyes are overall healthy. * States her eye doctor has written glaucoma on her diagnosis. 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 * Sees little floaters at times. * She reports constant headaches. * Feels winded at times. * Has used montelukast at bedtime in the past prescribed by her previous doctor. * She is planning a trip in some weeks to [facility]. [facility] Work Phone: history of Present illness Narrative* 65 year old female presenting for f/u after cardiology appt. * Was previously in ER in [place] for SOB, chest pain. * Was referred to cardiology due to chest pain. * She was evaluated and was referred to pulmonology. * No concerns regarding heart health. * Possibly respiratory etiology. * Has tendency for asthma. * has nasal congestion/ rhinorrhea in high pollen areas and occ headaches more recent * Reports her eyes are overall healthy. * States her eye doctor has written glaucoma on her diagnosis. 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 * Sees little floaters at times. * She reports constant headaches. * Feels winded at times. * Has used montelukast at bedtime in the past prescribed by her previous doctor. * She is planning a trip in some weeks to [facility]. [facility] Work Phone: History of Present illness Narrative* hx 2020 ER visit/ for chest discomfort.. [place]..no.. turned out to be asthma related * takes lt4 rx * pcp dr park * neck fine * no dysphagia [employer] [facility] Work Phone: History of Present illness Narrative* hx 2020 ER visit/ for chest discomfort.. MT..no.. turned out to be asthma related * takes lt4 rx * pcp dr park * evan lebron * no dysphagia [employer] [facility] Work Phone: History of Present illness Narrative* 66 year old female with hx of GERD, hypothyroidism presenting for med refills. * She saw pulmonology. * Underwent testing which was negative for disease. * No sign of asthma. * Was experiencing SOB with physical activity. * Now recovered. * States she had donated double RBC's when felt this way. * Will avoid donations for now. * She has seen cardiology. eval negative * Next appt in summer * she would like to cancel * No chest pain, SOB, leg edema, no headaches or dizziness. * Exercise tolerance good. feels back to baseline * has not had cbc recheck [facility] Work Phone: History of Present illness Narrative* 66 year old female with hx of GERD, hypothyroidism presenting for med refills. * She saw pulmonology. * Underwent testing which was negative for disease. * No sign of asthma. * Was experiencing SOB with physical activity. * Now recovered. * States she had donated double RBC's when felt this way. * Will avoid donations for now. * She has seen cardiology. eval negative * Next appt in summer * she would like to cancel * No chest pain, SOB, leg edema, no headaches or dizziness. * Exercise tolerance good. feels back to baseline * has not had cbc recheck [facility] Work Phone: History of Present illness NarrativeThis is a 66-year-old female, with complaints one episode of hematuria and symptomatic low blood pressure. She also complains of fever, chills, nausea and vomiting during the weekend. She reports oneliquid evacuation today. Denies dysuria, no increased urinary frequency.[facility] Physician [facility] Work Phone: History of Present illness Narrative* The patient is being seen for the subsequent annual wellness visit. * Past Medical, Surgical and Family History: reviewed and updated in chart. * Medications and Supplements: Review of all medications by a prescribing practitioner or clinical pharmacist (such as prescriptions, OTCs, herbal therapies and supplements) documented in the medical record. * No, the patient is not using opioids. * Patient Self Assessment of Health Status: good. * Tobacco use: Non-User * Alcohol use: Non-User, As noted in social history * Illicit drug use: Non-User * Current diet: well balanced diet, does consume adequate fluids and does consume caffeine. * Exercise Frequency: regularly. * Depression/Suicide Screening: . * During the past 2 weeks, the patient has not felt down, depressed or hopeless. * During the past 2 weeks, the patient has not felt little interest or pleasure in doing things. * Hearing Impairment: Patient has slight hearing impairment. * Cognitive Impairment: No cognitive impairment observed. * Bathing: performs independently. * Dressing: performs independently. * Walking: performs independently. * Toileting: performs independently. * Feeding: performs independently. * Personal Hygiene: performs independently. * Bowels: continent. * Bladder: continent. * Managing Finances: performs independently. * Shopping: performs independently. * Managing Medications: performs independently. * Housework / Basic Home Maintenance: performs independently. * Handling Transportation: performs independently. * Preparing Meals: performs independently. * Using the Telephone/ Communication Devices: performs independently. * Advance directives:. Advanced Care Planning discussed and documented advance care plan or surrogatedecision maker documented in the medical record. Patient has living will. Patient has healthcare POA. * 67 year old female with hx of GERD, hypothyroidism presenting for Annual Medicare, blood work results. * Blood work reviewed and discussed from from outside facility. CBC, CMP, lipid panel, T3, T4, TSH, vit B12. * Abnormal liver enzymes. Other labs unremarkable. * Patient has a sore throat. * Mild. * No other symptoms. * Onset 4 days ago. * Ongoing chronic cough. * HEalthy diet. * Drinks some caffeine daily. * She has lost 2 lbs. * Is s/p surgery. * Doing well. * Hx retinal issues. * Seeing eye doctor. * Colonoscopy done 2015, goes to [place]. * Due 2025. * s/p gallbladder surgery. March. * CT showed fatty liver. * worried this will progress. 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 * blood work showed liver abnormalities. * liver enzymes abnormal now. * Does not wish to see GI. * S/P hysterectomy with partial oophorectomy. * Does not get PAPs any longer. * No chest pain, SOB, leg edema, no headaches or dizziness. * Exercise tolerance good. * No fever, chills. * No cough or cold symptoms. * No GI problems. * No genitourinary issues. * No skin problems. [facility] Work Phone: History of Present illness Narrative* had emma 2021.. had cholecystitis * feels ok now * neck ok * tsh fine 2021 * neck fine * voice fine * had flu shot [facility] Work Phone: History of Present illness Narrative* had emma 2021.. had cholecystitis * feels ok now * neck ok * tsh fine 2021 * neck fine * voice fine * had flu shot [facility] Work Phone: Reason for referral (narrative)* Outpatient Procedure (Routine) Status Reason Specialty Diagnoses / Procedures Referred By Contact Referred To Contact Pending Review Auto-Generate d [facility]erral [facility] Diagnoses SOB (shortness of breath) Procedures NITRIC OXIDE, EXHALED EXHALED NITRIC OXIDE Nubia Barlow MD [address] [place] [address] [facility] [address] [place] [address] * Outpatient Procedure (Routine) Status Reason Specialty Diagnoses / Procedures Referred By Contact Referred To Contact Closed Auto-Generated Referral [facility] Diagnoses SOB (shortness of breath) Procedures SPIROMETRY WITH DILATOR IF OBSTRUCTED SPIROMETRY BEFORE/AFTER BRONCHODILATORS Nubia Barlow MD [address] [place] [address] [facility] [address] [place] [address] [facility] Family History No Family History Records Found Grandparent Name Dates Details Family history of malignant neoplasm of breast(V16.3, Z80.3) Status:Active Mother Name Dates Details Family history of Graves' di sease(V18.19, Z83.49) Status:Active Father Name Dates Details Family history of gallbladde r disease(V18.59, Z83.79) Status:Active Family history of Shy-Drager syndrome(333.0, G90.3) Status:Active Sister Name Dates Details Family history of hypothyroi dism(V18.19, Z83.49) Status:Active Unknown Family Member Name Dates Details Family history of Graves' di sease: Mother(V18.19, Z83.49) Status:Active Family history of gallbladde r disease: Father(V18.59, Z83.79) Status:Active Shy-Drager syndrome: Father Status:Active Family history of malignant neoplasm of breast: Grandparent(V16.3, Z80.3) Status:Active Family history of hypothyroi dism: Sister(V18.19, Z83.49) Status:Active Unknown Family Member Name Dates Details Family history of Graves' di sease: Mother(V18.19, Z83.49) Status:Active Family history of gallbladde r disease: Father(V18.59, Z83.79) Status:Active Shy-Drager syndrome: Father Status:Active Family history of malignant neoplasm of breast: Grandparent(V16.3, Z80.3) Status:Active Family history of hypothyroi dism: Sister(V18.19, Z83.49) Status:Active Unknown Family Member Name Dates Details Family history of Graves' di sease: Mother(V18.19, Z83.49) Status:Active Family history of gallbladde r disease: Father(V18.59, Z83.79) Status:Active Shy-Drager syndrome: Father Status:Active Family history of malignant neoplasm of breast: Grandparent(V16.3, Z80.3) Status:Active Family history of hypothyroi dism: Sister(V18.19, Z83.49) Status:Active Unknown Family Member Name Dates Details Family history of Graves' di sease: Mother(V18.19, Z83.49) Status:Active Family history of gallbladde r disease: Father(V18.59, Z83.79) Status:Active Shy-Drager syndrome: Father Status:Active Family history of malignant neoplasm of breast: Grandparent(V16.3, Z80.3) Status:Active Family history of hypothyroi dism: Sister(V18.19, Z83.49) Status:Active Unknown Family Member Name Dates Details Family history of Graves' di sease: Mother(V18.19, Z83.49) Status:Active Family history of gallbladde r disease: Father(V18.59, Z83.79) Status:Active Shy-Drager syndrome: Father Status:Active Family history of malignant neoplasm of breast: Grandparent(V16.3, Z80.3) Status:Active Family history of hypothyroi dism: Sister(V18.19, Z83.49) Status:Active Unknown Family Member Name Dates Details Family history of malignant neoplasm of breast: Grandparent(V16.3, Z80.3) Status:Active Shy-Drager syndrome: Father Status:Active Family history of gallbladde r disease: Father(V18.59, Z83.79) Status:Active Family history of Graves' di sease: Mother(V18.19, Z83.49) Status:Active Family history of hypothyroi dism: Sister(V18.19, Z83.49) Status:Active Unknown Family Member Name Dates Details Family history of Graves' di sease: Mother(V18.19, Z83.49) Status:Active Family history of gallbladde r disease: Father(V18.59, Z83.79) Status:Active Shy-Drager syndrome: Father Status:Active Family history of malignant neoplasm of breast: Grandparent(V16.3, Z80.3) Status:Active Family history of hypothyroi dism: Sister(V18.19, Z83.49) Status:Active Unknown Family Member Name Dates Details Family history of Graves' di sease: Mother(V18.19, Z83.49) Status:Active Family history of gallbladde r disease: Father(V18.59, Z83.79) Status:Active Shy-Drager syndrome: Father Status:Active Family history of malignant neoplasm of breast: Grandparent(V16.3, Z80.3) Status:Active Family history of hypothyroi dism: Sister(V18.19, Z83.49) Status:Active Unknown Family Member Name Dates Details Family history of Graves' di sease: Mother(V18.19, Z83.49) Status:Active Family history of gallbladde r disease: Father(V18.59, Z83.79) Status:Active Shy-Drager syndrome: Father Status:Active Family history of malignant neoplasm of breast: Grandparent(V16.3, Z80.3) Status:Active Family history of hypothyroi dism: Sister(V18.19, Z83.49) Status:Active Unknown Family Member Name Dates Details Family history of Graves' di sease: Mother(V18.19, Z83.49) Status:Active Family history of gallbladde r disease: Father(V18.59, Z83.79) Status:Active Shy-Drager syndrome: Father Status:Active Family history of malignant neoplasm of breast: Grandparent(V16.3, Z80.3) Status:Active Family history of hypothyroi dism: Sister(V18.19, Z83.49) Status:Active Unknown Family Member Name Dates Details Family history of hypothyroi dism: Sister(V18.19, Z83.49) Status:Active Family history of malignant neoplasm of breast: Grandparent(V16.3, Z80.3) Status:Active Shy-Drager syndrome: Father Status:Active Family history of gallbladde r disease: Father(V18.59, Z83.79) Status:Active Family history of Graves' di sease: Mother(V18.19, Z83.49) Status:Active Unknown Family Member Name Dates Details Family history of malignant neoplasm of breast: Grandparent(V16.3, Z80.3) Status:Active Shy-Drager syndrome: Father Status:Active Family history of gallbladde r disease: Father(V18.59, Z83.79) Status:Active Family history of Graves' di sease: Mother(V18.19, Z83.49) Status:Active Family history of hypothyroi dism: Sister(V18.19, Z83.49) Status:Active Unknown Family Member Name Dates Details Family history of Graves' di sease: Mother(V18.19, Z83.49) Status:Active Family history of gallbladde r disease: Father(V18.59, Z83.79) Status:Active Shy-Drager syndrome: Father Status:Active Family history of malignant neoplasm of breast: Grandparent(V16.3, Z80.3) Status:Active Family history of hypothyroi dism: Sister(V18.19, Z83.49) Status:Active Unknown Family Member Name Dates Details Family history of Graves' di sease: Mother(V18.19, Z83.49) Status:Active Family history of gallbladde r disease: Father(V18.59, Z83.79) Status:Active Shy-Drager syndrome: Father Status:Active Family history of malignant neoplasm of breast: Grandparent(V16.3, Z80.3) Status:Active Family history of hypothyroi dism: Sister(V18.19, Z83.49) Status:Active Unknown Family Member Name Dates Details Family history of Graves' di sease: Mother(V18.19, Z83.49) Status:Active Family history of gallbladde r disease: Father(V18.59, Z83.79) Status:Active Shy-Drager syndrome: Father Status:Active Family history of malignant neoplasm of breast: Grandparent(V16.3, Z80.3) Status:Active Family history of hypothyroi dism: Sister(V18.19, Z83.49) Status:Active Unknown Family Member Name Dates Details Family history of Graves' di sease: Mother(V18.19, Z83.49) Status:Active Family history of gallbladde r disease: Father(V18.59, Z83.79) Status:Active Shy-Drager syndrome: Father Status:Active Family history of malignant neoplasm of breast: Grandparent(V16.3, Z80.3) Status:Active Family history of hypothyroi dism: Sister(V18.19, Z83.49) Status:Active Unknown Family Member Name Dates Details Family history of Graves' di sease: Mother(V18.19, Z83.49) Status:Active Family history of gallbladde r disease: Father(V18.59, Z83.79) Status:Active Shy-Drager syndrome: Father Status:Active Family history of malignant neoplasm of breast: Grandparent(V16.3, Z80.3) Status:Active Family history of hypothyroi dism: Sister(V18.19, Z83.49) Status:Active Unknown Family Member Name Dates Details Family history of Graves' di sease: Mother(V18.19, Z83.49) Status:Active Family history of gallbladde r disease: Father(V18.59, Z83.79) Status:Active Shy-Drager syndrome: Father Status:Active Family history of malignant neoplasm of breast: Grandparent(V16.3, Z80.3) Status:Active Family history of hypothyroi dism: Sister(V18.19, Z83.49) Status:Active Unknown Family Member Name Dates Details Family history of Graves' di sease: Mother(V18.19, Z83.49) Status:Active Family history of gallbladde r disease: Father(V18.59, Z83.79) Status:Active Shy-Drager syndrome: Father Status:Active Family history of malignant neoplasm of breast: Grandparent(V16.3, Z80.3) Status:Active Family history of hypothyroi dism: Sister(V18.19, Z83.49) Status:Active Unknown Family Member Name Dates Details Family history of Graves' di sease: Mother(V18.19, Z83.49) Status:Active Family history of gallbladde r disease: Father(V18.59, Z83.79) Status:Active Shy-Drager syndrome: Father Status:Active Family history of malignant neoplasm of breast: Grandparent(V16.3, Z80.3) Status:Active Family history of hypothyroi dism: Sister(V18.19, Z83.49) Status:Active Unknown Family Member Name Dates Details Family history of Graves' di sease: Mother(V18.19, Z83.49) Status:Active Family history of gallbladde r disease: Father(V18.59, Z83.79) Status:Active Shy-Drager syndrome: Father Status:Active Family history of malignant neoplasm of breast: Grandparent(V16.3, Z80.3) Status:Active Family history of hypothyroi dism: Sister(V18.19, Z83.49) Status:Active Unknown Family Member Name Dates Details Family history of Graves' di sease: Mother(V18.19, Z83.49) Status:Active Family history of gallbladde r disease: Father(V18.59, Z83.79) Status:Active Shy-Drager syndrome: Father Status:Active Family history of malignant neoplasm of breast: Grandparent(V16.3, Z80.3) Status:Active Family history of hypothyroi dism: Sister(V18.19, Z83.49) Status:Active Unknown Family Member Name Dates Details Family history of Graves' di sease: Mother(V18.19, Z83.49) Status:Active Family history of gallbladde r disease: Father(V18.59, Z83.79) Status:Active Shy-Drager syndrome: Father Status:Active Family history of malignant neoplasm of breast: Grandparent(V16.3, Z80.3) Status:Active Family history of hypothyroi dism: Sister(V18.19, Z83.49) Status:Active Unknown Family Member Name Dates Details Family history of Graves' di sease: Mother(V18.19, Z83.49) Status:Active Family history of gallbladde r disease: Father(V18.59, Z83.79) Status:Active Shy-Drager syndrome: Father Status:Active Family history of malignant neoplasm of breast: Grandparent(V16.3, Z80.3) Status:Active Family history of hypothyroi dism: Sister(V18.19, Z83.49) Status:Active Unknown Family Member Name Dates Details Family history of Graves' di sease: Mother(V18.19, Z83.49) Status:Active Family history of gallbladde r disease: Father(V18.59, Z83.79) Status:Active Shy-Drager syndrome: Father Status:Active Family history of malignant neoplasm of breast: Grandparent(V16.3, Z80.3) Status:Active Family history of hypothyroi dism: Sister(V18.19, Z83.49) Status:Active Unknown Family Member Name Dates Details Family history of Graves' di sease: Mother(V18.19, Z83.49) Status:Active Family history of gallbladde r disease: Father(V18.59, Z83.79) Status:Active Shy-Drager syndrome: Father Status:Active Family history of malignant neoplasm of breast: Grandparent(V16.3, Z80.3) Status:Active Family history of hypothyroi dism: Sister(V18.19, Z83.49) Status:Active Unknown Family Member Name Dates Details Family history of Graves' di sease: Mother(V18.19, Z83.49) Status:Active Family history of gallbladde r disease: Father(V18.59, Z83.79) Status:Active Shy-Drager syndrome: Father Status:Active Family history of malignant neoplasm of breast: Grandparent(V16.3, Z80.3) Status:Active Family history of hypothyroi dism: Sister(V18.19, Z83.49) Status:Active Unknown Family Member Name Dates Details Family history of Graves' di sease: Mother(V18.19, Z83.49) Status:Active Family history of gallbladde r disease: Father(V18.59, Z83.79) Status:Active Shy-Drager syndrome: Father Status:Active Family history of malignant neoplasm of breast: Grandparent(V16.3, Z80.3) Status:Active Family history of hypothyroi dism: Sister(V18.19, Z83.49) Status:Active Unknown Family Member Name Dates Details Family history of Graves' di sease: Mother(V18.19, Z83.49) Status:Active Family history of gallbladde r disease: Father(V18.59, Z83.79) Status:Active Shy-Drager syndrome: Father Status:Active Family history of malignant neoplasm of breast: Grandparent(V16.3, Z80.3) Status:Active Family history of hypothyroi dism: Sister(V18.19, Z83.49) Status:Active Chief Complaint ADAN GRADY is here for a hospital follow-up . ER [place] for sob, chest tightness and bilateral calf pain.ADAN GRADY is here for a follow-up for . cardiology apt.ADAN GRADY is here for a follow-up for . cardiology apt.ADAN GRADY is here for a follow-up for . cardiology apt.here for thyroid followup here for thyroid followupADAN GRADY is here for a follow-up for . Medication refills.ADAN GRADY is here for a follow-up for . Medication refills.lower back pain that radiates down her leg.dysuria, and abdominal / lower back pain. 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 Healthcare Power of Atty 01/10/2017 Living Will 01/10/2017 Additional Source Comments Source Comments (unrecognize d section and content) In the event this informatio n is protected by the Federal Confidentiality of Alcohol and Drug Abuse Patient Records regulations: The Federal rules restrict any use of the information to criminally investigate or prosecute any alcohol or drug abuse patient.[facility] the event this information is protected by the Federal Confidentiality of Alcohol and Drug Abuse Patient Records regulations: The Federal rules restrict any use of the information to criminally investigate or prosecute any alcohol or drug abuse patient.[facility] the event this information is protected by the Federal Confidentiality of Alcohol and Drug Abuse Patient Records regulations: The Federal rules restrict any use of the information to criminally investigate or prosecute any alcohol or drug abuse patient.[facility] the event this information is protected by the Federal Confidentiality of Alcohol and Drug Abuse Patient Records regulations: The Federal rules restrict any use of the information to criminally investigate or prosecute any alcohol or drug abuse patient.[facility] the event this information is protected by the Federal Confidentiality of Alcohol and Drug Abuse Patient Records regulations: The Federal rules restrict any use of the information to criminally investigate or prosecute any alcohol or drug abuse patient.[facility] the event this information is protected by the Federal Confidentiality of Alcohol and Drug Abuse Patient Records regulations: The Federal rules restrict any use of the information to criminally investigate or prosecute any alcohol or drug abuse patient.[facility] the event this information is protected by the Federal Confidentiality of Alcohol and Drug Abuse Patient Records regulations: The Federal rules restrict any use of the information to criminally investigate or prosecute any alcohol or drug abuse patient.[facility] the event this information is protected by the Federal Confidentiality of Alcohol and Drug Abuse Patient Records regulations: The Federal rules restrict any use of the information to criminally investigate or prosecute any alcohol or drug abuse patient.[facility] Reason for Visit (unrecogniz ed section and content) Specialty Diagnoses / Procedures Referred By Contac t Referred To Contact Physical Therapy / PHYSICAL THERAPY Diagnoses low back pain Procedures NEW RS PT SPINE La Park MD [address] [place] [address] Reema Rice, PT [address] [place] [address] Referral ID Status Reason Start Date Expiration Date V isits Requested Visits Authorized [id number] Authorized 10/14/2021 10/13/2022 99 99 Reason Comments Spirometry Status Reason Specialty Diagnoses / Procedures Referred By Contact Referred To Contact Pending Review Auto-Generate d Referral [facility] Diagnoses SOB (shortness of breath) Procedures NITRIC OXIDE, EXHALED EXHALED NITRIC OXIDE Nubia Barlow MD [address] [place] [address] [facility] [address] [place] [id number] Status Reason Specialty Diagnoses / Procedures Referred By Contact Referred To Contact Closed Auto-Generated Referral [facility] Diagnoses SOB (shortness of breath) Procedures SPIROMETRY WITH DILATOR IF OBSTRUCTED SPIROMETRY BEFORE/AFTER BRONCHODILATORS Nubia Barlow MD [address] [place] [address] [facility] [address] [place] [address] Reason Comments Lung Eval SOB Reason Comments PT Eval Patient Education Reason Comments Post Op Follow Up 03/26 lap emma w/ ch olangiograms Reason Comments Med Refill Blood work results Care Teams (unrecognized sec tion and content) Flexo Press Operator Relationship Specialty Start Date End Date La Park MD [address] [place] [address] PCP - General Internal Medicine 08/18/21 Flexo Press Operator Relationship Specialty Start Date End Date La Park MD [address] [place] [address] PCP - General Internal Medicine 08/18/21 Flexo Press Operator Relationship Specialty Start Date End Date La Park MD [address] [place] [address] PCP - General Internal Medicine 08/18/21 Flexo Press Operator Relationship Specialty Start Date End Date La Park MD [address] [place] [address] PCP - General Internal Medicine 08/18/21 Flexo Press Operator Relationship Specialty Start Date End Date La Park MD [address] [facility] [place] [address] PCP - General 08/06/19 La Park MD [address] [facility] [place] [address] PCP - MSSP ACO Attributed Provider 10/14/21 INFORMATION SOURCE (unrecogn ized section and content) DATE CREATED AUTHOR AUTHOR'S ORGANIZ ATION 05/18/2022 [facility] DATE CREATED AUTHOR AUTHOR'S ORGANIZ ATION 08/11/2022 [facility] DATE CREATED AUTHOR AUTHOR'S ORGANIZ ATION 08/11/2022 [facility] DATE CREATED AUTHOR AUTHOR'S ORGANIZ ATION 08/30/2022 [facility] DATE CREATED AUTHOR AUTHOR'S ORGANIZ ATION 07/31/2023 [facility] FOR RECORDS PERTAINING TO PATIENTS WHO ARE OR HAVE BEEN ENROLLED IN A CHEMICAL DEPENDENCY/SUBSTANCEABUSE PROGRAM, SOME INFORMATION MAY BE OMITTED. This clinical summary was aggregated from multiple sources. Caution should be exercised in using it in the provision of clinical care. This summary normalizes information from multiple sources, and as a consequence, information in this document may materially change the coding, format and clinical context of patient data. In addition, data may be omitted in some cases. CLINICAL DECISIONS SHOULD BE BASED ON THE PRIMARY CLINICAL RECORDS. [facility] [employer] provides no warranty or guarantee of the accuracy or completeness of information in this document.
--- NOTE | 2023-11-03 15:50 | EDS_ITS ---
HPI <TOM Pineda - Last Filed: 11/03/23 16:30> History of Present Illness Chief Complaint: Upper Extremity Injury Narrative Narrative: Patient presenting today due to right shoulder pain after a fall that occurred this afternoon. She reports that she was talking on the phone and walking outside when she slipped on the ice and fell onto her right shoulder. She denies hitting her head, there was no loss of consciousness. She denies any other injury. PFSH <TOM Pineda - Last Filed: 11/03/23 16:30> [facility] Medical History (Updated 11/03/23 @ 15:53 by TOM Pineda) Asthma Chest pain Depression Hypothyroidism Vitamin B12 deficiency Vitamin D deficiency Home Medications calcium carbonate 500 mg calcium (1,250 mg) chewable tablet 1,000 mg PO DAILY 09/09/19 [History Last Taken Unknown] loratadine 10 mg tablet 10 mg PO DAILY 09/09/19 [History Last Taken Unknown] albuterol sulfate 90 mcg/actuation aerosol inhaler (ProAir HFA) 2 puff inhalation Q4H PRN 09/18/19 [History Last Taken Unknown] multivitamin (Daily Multi-Vitamin tablet) 1 tab PO DAILY 09/21/19 [History Last Taken Unknown] levomefolate 15 mg-algal oil 90.314 mg capsule (Deplin (algal oil)) 1 cap PO DAILY 10/20/19 [History Last Taken Unknown] levothyroxine 100 mcg tablet 88 mcg PO DAILY 10/26/21 [History Last Taken Unknown] montelukast 10 mg tablet 10 mg PO DAILY 10/26/21 [History Last Taken Unknown] Allergy/AdvReac Type Severity Reaction Status Date / Time No Known Allergies Allergy Verified 11/03/23 14:36 Surgical History History of appendectomy History of hysterectomy History of retropharyngeal abscess History of salpingectomy Social History Smoking Status: Never smoker alcohol intake: current alcohol intake frequency: 0-2 drinks per day Alcohol type: wine substance use type: does not use caffeine: Yes Type: coffee Number of servings: 2 ROS <TOM Pineda - Last Filed: 11/03/23 16:30> ROS ED Constitutional Constitutional ED: Denies chills or fever(s) Cardiovascular Cardiovascular: Denies chest pain Respiratory/Chest Respiratory/Chest: Denies cough or dyspnea Gastrointestinal Gastrointestinal: Denies abdominal pain, nausea or vomiting Musculoskeletal Musculoskeletal: Reports arthralgias; Denies back pain or neck pain Integumentary Denies Abrasions Neurologic Neurologic: Denies weakness EXAM <TOM Pineda - Last Filed: 11/03/23 16:30> Physical Exam Const Vital Signs: 11/03/23 14:29 Temperature 94.8 F L Temperature Source Temporal Pulse Rate 85 Respiratory Rate 16 Blood Pressure 143/88 H Blood Pressure Mean 106 Pulse Ox 96 Oxygen Delivery Method Room Air Positive well nourished, well developed and no apparent distress General Appearance ED: well developed HEENT Reports normocephalic and head/scalp atraumatic Mouth ED: Yes moist mucous membranes normal Eyes PERRL and EOMs intact bilaterally Neck full ROM and supple Chest Wall inspection of chest normal Resp normal respiratory effort and clear to auscultation bilaterally Cardio regular rate and regular rhythm GI soft to palpation, non-tender, non-distended and no masses Back/Spine normal ROM and normal to inspection Extremity normal to inspection Extremity Narrative: Limited range of motion to the right shoulder due to pain. No pain to palpation to the right shoulder or right clavicle. Right radial pulse 2+, good capillary refill, sensation intact. Neuro oriented x3, CN's II-XII intact bilaterally, moves all extremities, no focal motor deficits and no sensory deficits noted Sensorium / Orientation: awake and alert Psych mental status grossly normal and thought process normal Skin no rashes or lesions noted and no wounds MDM <TOM Pineda - Last Filed: 11/03/23 16:30> [facility] Narrative Medical decision making narrative: Patient presenting today due to right shoulder pain after a mechanical fall that occurred this afternoon. She fell onto her right shoulder. She does not have any pain to palpation to the shoulder but she does have pain with range of motion. X-ray of the right shoulder obtained to rule out fracture and is negative. I did offer analgesia here, she declines. She reports that she has a shoulder sling at home that she can use as needed. She will be given RICE instructions and can alternate Tylenol and ibuprofen as needed for pain. She will be discharged home in stable condition and is comfortable with plan. Radiography X-Ray: Read by ED Physician and Read by Radiologist Diagnostic Testing: Clinical Impression(s) from Imaging Studies Shoulder X-Ray 11/03/23 15:10 IMPRESSION: Negative right shoulder x-rays. Electronically Signed: Calvin Cooney MD at 15:30 EST Reading Location ID and State: [facility] / [place] , Service support , <Paul Mc MD - Last Filed: 11/03/23 16:42> MDM MDM Narrative Medical decision making narrative: Patient presenting today due to right shoulder pain after a mechanical fall that occurred this afternoon. She fell onto her right shoulder. She does not have any pain to palpation to the shoulder but she does have pain with range of motion. X-ray of the right shoulder obtained to rule out fracture and is negative. I did offer analgesia here, she declines. She reports that she has a shoulder sling at home that she can use as needed. She will be given RICE instructions and can alternate Tylenol and ibuprofen as needed for pain. She will be discharged home in stable condition and is comfortable with plan. Dr. Mc: I have personally performed a face to face assessment of the patient and have reviewed the CASSIUS Note. I performed a substantive portion of the visit including all aspects of the following. My polk findings include: History is mechanical fall after slipping on snow/ice. Fell onto her right shoulder. Worse with movement. Exam is GCS 15. ABCs intact. Afebrile. Vital signs noted. Minimal diffuse tenderness to palpation right shoulder, no clinical dislocation. Palpable radial pulse. Medical Decision Making: Check x-ray. X-rays and 3 views interpreted by myself independently show no evidence of dislocation or fracture. In the differential is also shoulder strain versus contusion. Patient declined sling here. [id number] analgesics. Follow-up orthopedics in 7 to 10 days if no improvement. Discharged. Other additions or changes: [None] Discharge Plan Triage Chief Complaint: Upper Extremity Injury ED Midlevel Provider: Yudith Sevilla ED Provider: Paul Mc Dx/Rx/DC Orders Clinical Impression: Contusion of shoulder, right Instructions: ED Contusion, Upper Extremity Prescriptions: No Action multivitamin [Daily Multi-Vitamin] Tablet 1 tab PO DAILY albuterol sulfate [ProAir HFA] 90 mcg/actuation HFA aerosol inhaler 2 puff INHALATION Q4H PRN levomefolate-algal oil [Deplin (algal oil)] 15-90.314 mg capsule 1 cap PO DAILY montelukast 10 mg tablet 10 mg PO DAILY calcium carbonate 500 MG tablet,chewable 1,000 mg PO DAILY loratadine 10 MG tablet 10 mg PO DAILY levothyroxine 100 mcg tablet 88 mcg PO DAILY Primary Care Provider: La Melendez Referrals: La Melendez MD [Primary Care Provider] - Activity Restrictions/Additional Instructions: Follow-up with your PCP. You can alternate Tylenol and ibuprofen for your pain as needed. Ice your shoulder for 10 to 15 minutes at a time 3-4 times a day for the next few days. Disposition Disposition: Home, Self Care Discharge Date/Time: 11/03/23 16:00
[2023-11-03 15:58] VITALS: BP 137/88; PULSE 75; RESP 16; O2SAT 100
== END 2023-11-03 16:00 | disposition home or self-care (01) ==
PROVIDERS: Emergency Provider Emergency Medicine; PCP Pediatrics; Visit Provider Emergency Medicine
DX: S40.011A Contusion of right shoulder, initial encounter (principal); W00.9XXA Unspecified fall due to ice and snow, initial encounter; Y93.01 Activity, walking, marching and hiking; E03.9 Hypothyroidism, unspecified; Z79.899 Other long term (current) drug therapy; Z90.49 Acquired absence of other specified parts of digestive tract; Z90.710 Acquired absence of both cervix and uterus
CPT/HCPCS: 73030; 99282

== ENCOUNTER → 2024-01-29 | Outpatient (CLI) | payer MEDICARE, OTHER, SELFPAY ==
[2024-01-29 10:59] LABS: Free T3 2.3 pg/mL (2.18-3.98); Thyroid Stim Hormone (TSH) 0.85 uIU/mL (0.358-3.74)
== END | disposition home or self-care (01) ==
PROVIDERS: PCP Pediatrics; Referring Provider Pediatrics; Visit Provider Pediatrics
DX: E03.9 Hypothyroidism, unspecified (principal)
CPT/HCPCS: 36415; 84439; 84443; 84481

== ENCOUNTER → 2024-06-12 | Outpatient (CLI) | payer MEDICARE, OTHER, SELFPAY ==
[2024-06-12 10:22] LABS: Absolute Lymphocyte Count 1.78 X10^3/uL (0.83-4.51); Absolute Neutrophil Count 2.1 X10^3/uL (2.0-7.7); Basophil# 0.04 X10^3/uL; Basophil% 0.9 % (0-1); Eosinophil# 0.19 X10^3/uL; Eosinophils% 4.1 % (0-5); Hematocrit 42.6 % (37-47); Lymphocyte # 1.78 X10^3/ul (0.83-4.51); Lymphocyte % 38.8 % (19-41); Mean Corp Hgb Conc 32.9 g/dL (32-36); Mean Corpuscular Hgb 30.6 pg (27.0-32.0); Mean Corpuscular Volume 93.2 fL (81-99); Monocyte# 0.48 X10^3/uL; Monocyte% 10.5 % (0-10); NRBC Flagged by Analyzer 0 % (0-5); Neutrophil # 2.08 X10^3/uL (2.7-7.7); Neutrophil % 45.3 % (47-70); Platelet Count 260 K/mm3 (150-450); RBC Distribution Width CV 12.7 % (11.6-14.6); RBC Distribution Width SD 43.2 fl (35.1-43.9); Red Blood Count 4.57 M/mm3 (4.2-5.4); White Blood Count 4.6 K/mm3 (4.4-11.0)
[2024-06-12 10:43] LABS: ALB/GLOB Ratio 1.1 RATIO (0.9-2.4); AST(SGOT) 29 U/L (15-37); Alanine Aminotransfer ALT/SGPT 54 U/L (13-56); Albumin, Serum 3.7 g/dL (3.2-5.0); Alkaline Phosphatase 69 U/L (45-117); Anion Gap 4 (5-15); BUN 26 mg/dL (7-18); BUN/Creat Ratio 35.4 RATIO (10-20); Calcium,Total 9.5 mg/dL (8.5-10.1); Chloride 110 mmol/L (98-107); Cholesterol 180 mg/dL (200); Creatinine, Serum 0.74 mg/dL (0.55-1.02); EST Glomerular Filtration Rate 83 mL/min (>60); Est Glom Filt Rate - Afr Amer 101 mL/min (>60); Free T3 2.2 pg/mL (2.18-3.98); Globulin 3.4 g/dL (2.2-4.2); Glucose 102 mg/dL (74-106); High Density Lipoprotein 60 mg/dL; Potassium 4.2 mmol/L (3.5-5.1); Protein, Total 7.1 g/dL (6.4-8.2); Sodium Level 142 mmol/L (136-145); T4 Free Direct 1.04 ng/dL (0.76-1.46); Triglycerides 93 mg/dL; Very Low Density Lipoprotein 19 mg/dL (5-40)
== END | disposition home or self-care (01) ==
LOC: MTLAB 07:16
PROVIDERS: PCP Pediatrics; Referring Provider Pediatrics; Visit Provider Pediatrics
DX: Z00.00 Encounter for general adult medical examination without abnormal findings (principal); R79.89 Other specified abnormal findings of blood chemistry; E03.9 Hypothyroidism, unspecified
CPT/HCPCS: 36415; 80053; 80061; 84439; 84443; 84481; 85025

== ENCOUNTER → 2025-01-29 | Outpatient (CLI) | payer MEDICARE, OTHER, SELFPAY ==
[2025-01-29 10:35] LABS: Anion Gap 10 (5-15); BUN 24 mg/dL (4-19); BUN/Creat Ratio 28.5 RATIO (10-20); Calcium,Total 9.8 mg/dL (7.6-11.0); Carbon Dioxide 27.5 mmol/L (21.0-32.0); Chloride 104 mmol/L (98-108); Creatinine, Serum 0.83 mg/dL (0.70-1.20); EST Glomerular Filtration Rate 76 (>60); Glucose 79 mg/dL (70-99); Potassium 3.5 mmol/L (3.3-5.1); Sodium Level 142 mmol/L (133-145)
[2025-01-29 10:44] LABS: Free T3 2.1 pg/mL (2.18-3.98); T4 Total, Thyroxin 9.6 ug/dL (4.8-13.9)
== END | disposition home or self-care (01) ==
LOC: MTLAB 07:14
PROVIDERS: PCP Pediatrics; Referring Provider Pediatrics; Visit Provider Pediatrics
DX: E03.9 Hypothyroidism, unspecified (principal); R79.9 Abnormal finding of blood chemistry, unspecified
CPT/HCPCS: 36415; 80048; 84436; 84439; 84443; 84481

== ENCOUNTER → 2025-08-05 | Outpatient (CLI) | payer MEDICARE, OTHER, SELFPAY ==
--- OUTSIDE RECORDS SUMMARY | 2025-08-05 07:18 | XMS RPT_ITS | CCD ---
Author Organization [facility] CliniSywy Care Team Providers Care Senior Reservations Agent Name Role Phone Quoc Mckinney Unavailable Unavailable La Melendez Unavailable Unavailable La Melendez Unavailable Unavailable Quoc Mckinney Unavailable Unavailable La Melendez Unavailable Unavailable Unavailable La Melendez MD Primary Care Provider [phone] Nora, Dr. Tovar Primary Care Provider [phone] Nora, Dr. Tovar Referring Provider Wade COOK MORNING, GARRETT Yancey Attending Provider Unavailable Unavailable Nora, Dr. La Fairbanks Attending Unavaila ble Nora, Dr. La Fairbanks Primary Care Unavaila ble Nora, Dr. La Fairbanks Referring Unavaila ble Nora, Dr. La Fairbanks Attending Unavaila ble Nora, Dr. La Fairbanks Primary Care Unavaila ble Neshayla, Quoc Cordero Attending Unavailable Quoc Mckinney Referring Unavailable Nora, Dr. La Fairbanks Primary Care Unavaila ble Nora, Dr. La Fairbanks Primary Care Unavaila ble Bill, Gerald Froylan Kwong Attending Benitava ilable Kacey Patterson Referring Unavailable Nora, Dr. La Fairbanks Primary Care Unavaila ble MeansKacey Attending Unavailable MeansKacey Referring Unavailable Nora, Dr. La Fairbanks Attending [...] Dr. La Fairbanks Primary Care Unavaila ble Nora BRYANT, La Reece Primary Care Provider [phone] Nora BRYANT, La Reece Unavailable La Melendez MD Primary Care Provider [phone] Nora BRYANT, La Reece Primary Care Provider [phone] LA MELENDEZ Referring Unavailable NORA, LA Reece Primary Care Unavailable NORA, LA Reece Referring Unavailable NORA, LA Reece Primary Care Unavailable NORA, LA Reece Referring Unavailable NORA, LA Reece Primary Care Unavailable YUMIKO, GEORGIA Referring Unavailable NORA, LA Reece Primary Care Unavailable AURELIANO, GEORGIA Attending Unavailable NORA, LA M Primary Care Unavailable AURELIANO, GEORGIA Attending Unavailable NORA, LA M Primary Care Unavailable AURELIANO, GE[place] Attending Unavailable NORA, LA M Primary Care Unavailable AURELIANO, GEOR[place] Attending Unavailable NORA, LA M Primary Care Unavailable AURELIANO, GE[place] Attending Unavailable NORA, LA M Primary Care Unavailable AURELIANO, GE[place] Admitting Unavailable AURELIANO, GEORGIA Attending Unavailable AURELIANO, GEOR[place]IA Referring Unavailable NORA, LA M Primary Care Unavailable AURELIANO, GE[place] Attending Unavailable NORA, LA M Primary Care Unavailable AURELIANO, GE[place] Referring Unavailable NORA, LA M Primary Care Unavailable AURELIANO, GE[place] Attending Unavailable NORA, LA M Primary Care Unavailable AURELIANO, GE[place] Referring Unavailable NORA, LA M Primary Care Unavailable AURELIANO, GE[place] Attending Unavailable NORA, LA M Primary Care Unavailable AURELIANO, GEOR[place] Referring Unavailable NORA, LA M Primary Care Unavailable La Melendez MD Primary Care Provider La Melendez MD Unavailable La Melendez Referring Unavailable La Melendez Primary Care Unavailable La Melendez Attending Unavailable La Melendez Referring Unavailable La Melendez Primary Care Unavailable La Melendez Attending Unavailable LA MELENDEZ Attending Unavailable LA MELENDEZ Primary Care Unavailable LA MELENDEZ Attending Unavailable LA MELENDEZ Primary Care Unavailable LA MELENDEZ Attending Unavailable LA MELENDEZ Primary Care Unavailable LA MELENDEZ Attending Unavailable LA MELENDEZ Primary Care Unavailable CALVIN WHITE Attending Unavailable GEORGIA BEDOYA Referring Unavailable LA MELENDEZ Primary Care Unavailable CALVIN WHITE Attending Unavailable GEORGIA BEDOYA Referring Unavailable LA MELENDEZ Primary Care Unavailable Allergies Allergy Classification Reported Allergen(s) Allergy Type Date of Onset Reaction(s) Facility (20 sources) valdecoxib; Translations: [VALDECOXIB] Drug Allergy 6 GI Upset, Diarrhea [facility] Work Phone: (20 sources) molds [Other] Propensity to adverse reactions 6 [facility] Work Phone: (12 sources) Mold Extract; Translations: [MOLD] Drug Allergy 6 [facility] (2 sources) OTHER; Translations: [OTHER] Propensity to adverse reactions (disorder) 6 [facility] Other [facility] Medications Current Medications Medication Drug Class(es) Dates Sig (Normalized) Sig (Original) acetaminophen 500 mg oral tablet (16 sources) Start: 01-01-2024 End: 03-31-2024 take 2 tablets by mouth every six hours as needed acetaminophen (TYLENOL EXTRA STRENGTH) 500 mg tablet Take 2 tablets by mouth every 6 hours as needed for pain. 60 tablet 0 01/01/2024 03/31/2024 Active Comment on above: Take 2 tablets by [facility] every 6 hours as needed for pain. [id number] 200 actuat albuterol 0.09 mg/actuat metered dose inhaler (20 sources) beta2-Adrenergic Agonist Start: 02-02-2025 take 2 puff(s) by inhalation every four hours albuterol 90 mcg/actuation inhaler Indications: Asthma, unspecified asthma severity, unspecified whether complicated, unspecified whether persistent (HHS-HCC) Inhale 2 puffs every 4 hours. 54 g 1 02/02/2025 Active Start: 02-04-2024 End: 02-03-2025 take 2 puff(s) by inhalation every six hours for wheezing albuterol 90 mcg/actuation inhaler Indications: Asthma, unspecified asthma severity, unspecified whether complicated, unspecified whether persistent (HHS-HCC) Inhale 2 puffs every 6 hours if needed for wheezing. 54 g 02/04/2024 02/03/2025 Active Start: 01-28-2023 End: 02-02-2025 take 2 puff(s) by inhalation every four hours albuterol 90 mcg/actuation inhaler Indications: Asthma, unspecified asthma severity, unspecified whether complicated, unspecified whether persistent (HHS-HCC) Inhale 2 puffs every 4 hours. 18 g 02/04/2024 02/02/2025 Discontinued (Reorder) Start: 09-18-2019 take 1 puff(s) by in halation every four hours Albuterol Sulfate (Proair Hfa) 90 mcg/actuation HFA aerosol inhaler Active 2 PUFF INHALATION Q4H September 18, 2019 1:00am Start: 06-29-2015 End: 01-28-2023 take 2 puff(s) by inhalation every four hours albuterol 90 mcg/actuation inhaler Inhale 2 puffs every 4 hours. 0 06/29/2015 01/28/2023 Discontinued (Reorder) Start: 06-29-2015 take 2 puff(s) by in halation every four hours as needed for cough Albuterol Sulfate HFA 108 (90 Base) MCG/ACT Inhalation Aerosol Solution INHALE 2 PUFFS EVERY 4 HOURS NEEDED FOR COUGH AND WHEEZE. Quantity: 1 Refills: 1 Ordered: 11-Jul-2021 La Melendez MD Start : 29-Jun-2015 Active Start: 06-29-2015 take 2 puff(s) by in halation every four hours as needed for cough ProAir HFA 108 (90 Base) MCG/ACT Inhalation Aerosol Solution INHALE 2 PUFFS EVERY 4 HOURS NEEDED FOR COUGH AND WHEEZE. Quantity: 1 Refills: 1 Ordered: 23-Oct-2016 La Melendez MD Start : 29-Jun-2015 Active Start: 06-29-2015 take 2 puff(s) by in halation every four hours as needed for cough ProAir HFA 108 (90 Base) MCG/ACT Inhalation Aerosol Solution INHALE 2 PUFFS EVERY 4 HOURS NEEDED FOR COUGH AND WHEEZE. Quantity: 1 Refills: 1 La Melendez MD Start : 29-Jun-2015 Active 8.5 GM Inhaler Start: 10-23-2005 take 2 puff(s) by in halation every four hours as needed ALBUTEROL 90 MCG/ACTUATION AEROSOL INHALER Indications: Unspecified asthma(493.90) 2 puffs every four (4) hours as needed 0 10/23/2005 Active Comment on above: 2 puffs every four ( 4) hours as needed azithromycin 250 mg oral tablet (2 sources) Macrolide Antimicrobial Start: 5 End: 5 azithromycin (Zithromax) 250 mg tablet Indications: Acute non-recurrent frontal sinusitis Take 2 tablets (500 mg) by mouth once daily for 1 day, THEN 1 tablet (250 mg) once daily for 4 days. Take 2 tabs (500 mg) by mouth today, than 1 daily for 4 days.. 6 tablet 01/25/2025 02/02/2025 Discontinued (Therapy completed) calcium carbonate 1250 mg chewable tablet (20 sources) Start: 9 take 1000 mg by mouth once daily Calcium Carbonate Active 1000 MG PO DAILY September 09, 2019 1:00am take 2 tablets by mouth once buddy ly calcium 500 mg calcium (1,250 mg) tablet Take 2 tablets (2,500 mg) by mouth once daily. Active take 2 tablets by mouth once buddy ly calcium carbonate (CALCIUM 500) 500 mg calcium (1,250 mg) tablet Take 2 tablets by mouth once daily. 0 Active Comment on above: Take 2 tablets by [facility] once daily. ibuprofen 800 mg oral tablet (20 sources) Nonsteroidal Anti-inflammatory Drug Start: 01-01-2024 End: 03-31-2024 take 1 tablet by mouth every eight hours as needed ibuprofen (MOTRIN) 800 mg tablet Take 1 tablet by mouth every 8 hours as needed for pain. 60 tablet 2 01/01/2024 03/31/2024 Active Start: 03-27-2022 End: 01-01-2024 take 1 tablet by mouth every six hours as needed ibuprofen (MOTRIN) 600 mg tablet Take 1 tablet by mouth every 6 hours as needed for pain. 30 tablet 1 03/27/2022 01/01/2024 Discontinued Comment on above: Take 1 tablet by [facility] every 6 hours as needed for pain. Take 1 tablet by cel[facility] every 8 hours as needed for pain. L-METHYLFOLATE 15 mg tab (20 sources) take 1 tablet by mouth once daily L-METHYLFOLATE 15 mg tab Take by mouth once daily. Active take 1 tablet by mouth once sloan y L-METHYLFOLATE 15 mg tab Take by mouth once daily. 0 Active Comment on above: Take by mouth once d aily. Levomefolate-Algal Oil (Deplin (Algal Oil)) 15-90.314 mg capsule (4 sources) Start: 10-20-2019 take 15-90.314 mg by mouth once daily Levomefolate-Algal Oil (Deplin (Algal Oil)) 15-90.314 mg capsule Active 1 CAP PO DAILY October 20, 2019 12:15pm Start: 10-20-2019 take 15-90.314 mg by mouth once daily Levomefolate-Algal Oil (Deplin (Algal Oil)) 15-90.314 mg capsule Active 1 CAP PO DAILY October 20, 2019 1:00am levomefolate-algal oil 15-90.314 mg capsule (11 sources) Start: 03-29-2015 take 15-90.314 mg by mouth once daily levomefolate-algal oil 15-90.314 mg capsule Take 15-90.314 mg by mouth once daily. 03/29/2015 Active Start: 03-29-2015 take 15-90.314 mg by mouth once daily levomefolate-algal oil 15-90.314 mg capsule Take 15-90.314 mg by mouth once daily. 0 03/29/2015 Active levothyroxine sodium 0.088 mg oral tablet (20 sources) l-Thyroxine Start: 02-02-2025 take 1 tablet by mouth once daily before mealtime levothyroxine (Synthroid, Levoxyl) 88 mcg tablet Indications: Hypothyroidism, unspecified type Take 1 tablet (88 mcg) by mouth once daily in the morning. Take before meals. 90 tablet 1 02/02/2025 Active Start: 10-05-2024 End: 02-02-2025 take 1 tablet by mouth once daily before mealtime levothyroxine (Synthroid, Levoxyl) 88 mcg tablet Indications: Hypothyroidism, unspecified type Take 1 tablet (88 mcg) by mouth once daily in the morning. Take before meals. 90 tablet 1 10/05/2024 02/02/2025 Discontinued (Reorder) Start: 09-25-2023 End: 08-05-2024 take 1 tablet by mouth once daily before mealtime levothyroxine (Synthroid, Levoxyl) 88 mcg tablet Indications: Hypothyroidism, unspecified type Take 1 tablet (88 mcg) by mouth once daily in the morning. Take before meals. 90 tablet 1 02/04/2024 Active Start: 01-28-2023 take 1 tablet by celso once daily before mealtime levothyroxine (Synthroid, Levoxyl) 88 mcg tablet Indications: Hypothyroidism, unspecified type Take 1 tablet (88 mcg) by mouth once daily in the morning. Take before meals. 90 tablet 1 01/28/2023 Active Start: 10-26-2021 take 88 ug by mouth once daily Levothyroxine Active 88 MCG PO DAILY October 26, 2021 10:58am Start: 08-04-2021 End: 01-28-2023 take 1 tablet by mouth once daily before mealtime levothyroxine (Synthroid, Levoxyl) 88 mcg tablet Take 1 tablet (88 mcg) by mouth once daily in the morning. Take before meals. 0 08/04/2021 01/28/2023 Discontinued (Reorder) Start: 01-06-2018 End: 10-26-2021 take 100 ug by mouth once daily Levothyroxine Disconti nued 100 MCG PO DAILY September 09, 2019 1:00am October 26, 2021 10:59am take 1 capsule by mo [facility] once daily before breakfast levothyroxine 88 mcg cap Take 88 mcg by mouth daily before breakfast. Active Comment on above: Take 88 mcg by mouth daily before breakfast. loratadine 10 mg oral tablet (20 sources) Start: 03-29-2015 Loratadine 10 MG Oral Tablet Quantity: 0 Refills: 0 Ordered: 29-Mar-2015 La Melendez MD Start : 29-Mar-2015 Active Start: 05-16-2007 take 1 tablet by celso th once daily as needed loratadine (CLARITIN) 10 mg ORAL Tab Indications: Allergic rhinitis, cause unspecified Take one(1) tablet daily. As needed. 0 05/16/2007 Active Comment on above: Take one(1) tablet d aily. As needed. mometasone furoate 0.05 mg/actuat metered dose nasal spray (20 sources) Corticosteroid Start: 10-31-19 08 take 2 spray(s) nasal route once daily mometasone furoate(NASONEX 50 MCG/ACTUATION SPRAY) Indications: Chronic rhinitis , Allergic rhinitis, cause unspecified 2 sprays each nostril daily 3 3 10/31/2007 Active Comment on above: 2 sprays each nostri l daily montelukast 10 mg oral tablet (20 sources) Leukotriene Receptor Antagonist Start: 10-05-20 take 1 tablet by mouth once daily at bedtime montelukast (Singulair) 10 mg tablet Indications: Asthma, unspecified asthma severity, unspecified whether complicated, unspecified whether persistent (HHS-HCC) Take 1 tablet (10 mg) by mouth once daily at bedtime. 90 tablet 1 10/05/2024 Active Start: 07-11-2021 End: 08-05-2024 take 1 tablet by mouth once daily at bedtime montelukast (Singulair) 10 mg tablet Indications: Asthma, unspecified asthma severity, unspecified whether complicated, unspecified whether persistent (HHS-HCC) Take 1 tablet (10 mg) by mouth once daily at bedtime. 90 tablet 1 02/04/2024 Active Comment on above: Take 10 mg by mouth daily at bedtime. Multivitamin (Daily Multi-Vitamin) tablet (4 sources) Start: take 1 tablet by mouth once daily Multivitamin (Daily Multi-Vitamin) tablet Active 1 TABLET PO DAILY September 21, 2019 2:45pm Start: 09-21-2019 take 1 tablet by celso th once daily Multivitamin (Daily Multi-Vitamin) tablet Active 1 TABLET PO DAILY September 21, 2019 1:00am oxyCODONE hydrochloride 5 mg oral tablet (1 source) Opioid Agonist Start: 01-01-2024 End: 01-08-2024 take 1 tablet by mouth every six hours as needed for pain oxyCODONE IR (ROXICODONE) 5 mg immediate release tablet Indications: Traumatic complete tear of right rotator cuff, subsequent encounter , Acute postoperative pain of extremity Take 1 tablet by mouth every 6 hours as needed for pain for up to 7 days. 28 tablet 0 01/01/2024 01/08/2024 Active Comment on above: Take 1 tablet by celso th every 6 hours as needed for pain for up to 7 days. predniSONE 20 mg oral tablet (4 sources) Start: 01-25-2025 End: 02-02-2025 take 2 tablets by mouth once daily predniSONE (Deltasone) 20 mg tablet Indications: Acute non-recurrent frontal sinusitis Take 2 tablets (40 mg) by mouth once daily for 5 days. 10 tablet 01/25/2025 02/02/2025 Discontinued (Therapy completed) Start: 04-13-2021 predniSONE 20 MG Oral Tablet Quantity: 20 Refills: 0 Ordered: 13-Apr-2021 DO Start : 13-Apr-2021 Complete sulfamethoxazole 800 mg / trimethoprim 160 mg oral tablet (1 source) Dihydrofolate Reductase Inhibitor Antibacterial, Sulfonamide Antimicrobial Start: 09-23-2024 End: 09-28-2024 take 1 tablet by mouth twice daily sulfamethoxazole-trimethoprim (Bactrim DS) 800-160 mg tablet Indications: Dysuria Take 1 tablet by mouth 2 times a day for 5 days. 10 tablet 09/23/2024 09/28/2024 Active THERAPEUTIC MULTIVITAMIN TAB (20 sources) Start: 10-23-2005 THERAPEUTIC MULTIVITAMIN TAB Take one(1) tablet daily. 0 10/23/2005 Active Comment on above: Take one(1) tablet d aily. therapeutic multivitamin-iron- minerals (Theragran-M) tablet (11 sources) Start: 10-23-2005 take 1 tablet by mouth once daily therapeutic wspfycukdyhz-kdrf-ufpzoxee (Theragran-M) tablet Take 1 tablet by mouth once daily. 10/23/2005 Active Start: 10-23-2005 take 1 tablet by celso th once daily therapeutic hutzgvkbehvn-whjz-shbsttoa (Theragran-M) tablet Take 1 tablet by mouth once daily. 0 10/23/2005 Active triamcinolone acetonide 0.055 mg/actuat metered dose nasal spray (20 sources) Corticosteroid Start: 07-11-2021 take 2 spray(s) nasal route once daily triamcinolone (Nasacort) 55 mcg nasal inhaler Administer 2 sprays into affected nostril(s) once daily. 07/11/2021 Active Start: 07-11-2021 Nasacort Aller gy 24HR 55 MCG/ACT Nasal Aerosol 2 squirts in each nostril qd Quantity: 1 Refills: 0 Ordered: 11-Jul-2021 La Melendez MD Start : 11-Jul-2021 Active Completed/Discontinued Medications Medication Drug Class(es) Dates Sig (Normalized) Sig (Original) calcium carbonate 1250 mg / cholecalciferol 125 unt oral tablet (20 sources) Vitamin D Start: 11-16-2016 Calcium 500-125 MG-UNIT TABS Quantity: 0 Refills: 0 Ordered: 16-Nov-2016 DO Start : 16-Nov-2016 Active cholecalciferol 0.05 mg oral tablet (20 sources) Vitamin D Start: 03-29-2015 End: 03-08-2020 take 2000 [IU] by mouth once daily Cholecalciferol (Vitamin D3) Discontinued 2000 UNIT PO DAILY September 18, 2019 1:00am March 08, 2020 11:16am Deplin 15 15-90.314 MG Oral Capsule (1 source) Start: 03-29-2015 take 1 capsule by mouth once daily Deplin 15 15-90.314 MG Oral Capsule take 1 po q d Quantity: 90 Refills: 1 La Melendez MD Start : 29-Mar-2015 Active Deplin 15 15-90.314 MG Oral Capsule (20 sources) Start: 03-29-2015 take 1 capsule by mouth once daily Deplin 15 15-90.314 MG Oral Capsule take 1 po q d Quantity: 90 Refills: 1 Ordered: 31-Jan-2018 La Melendez MD Start : 29-Mar-2015 Active eflornithine 139 mg/ml topical cream (3 sources) Antiprotozoal, Decarboxylase Inhibitor Start: 05-25-2008 End: 08-18-2021 eflornithine hcl(VANIQA 13.9 % TOPICAL CREAM) Use as directed. 2 3 05/25/2008 08/18/2021 Discontinued Comment on above: Use as directed. levomefolate (4 sources) Start: 09-09-2019 End: 09-21-2019 take 15 mg by mouth once daily Levomefolate Calcium Discontinued 15 MG PO DAILY September 09, 2019 5:18pm September 21, 2019 2:45pm Start: 09-09-2019 End: 09-21-2019 take 15 mg by mouth once daily Levomefolate Calcium Di scontinued 15 MG PO DAILY September 09, 2019 1:00am September 21, 2019 2:45pm Multivitamin preparation (4 sources) Start: 09-09-2019 End: 09-18-2019 Multivitamin Discontinued 1 EACH PO DAILY September 09, 2019 5:18pm September 18, 2019 5:41pm Start: 09-09-2019 End: 09-18-2019 Multivitamin Discontinued 1 EACH PO DAILY September 09, 2019 1:00am September 18, 2019 5:41pm omeprazole 40 mg delayed release oral capsule (20 sources) Proton Pump Inhibitor Start: 09-14-2019 End: 03-08-2020 take 40 mg by mouth once daily Omeprazole Discontinued 40 MG PO DAILY October 20, 2019 12:14pm March 08, 2020 11:17am selenium sulfide 25 mg/ml medicated shampoo (3 sources) Start: 05-25-2008 End: 08-18-2021 SELENIUM SULFIDE 2.5 % SHAMPOO Use as directed. 3 3 05/25/2008 08/18/2021 Discontinued Comment on above: Use as directed. 24 hr venlafaxine 75 mg extended release oral capsule (3 sources) Serotonin and Norepinephrine Reuptake Inhibitor Start: 08-31-2008 End: 08-18-2021 venlafaxine hcl(EFFEXOR XR 75 MG 24 HR CAP) Indications: Depressive disorder, not elsewhere classified Take one(1) tablet daily. 90 3 08/31/2008 08/18/2021 Discontinued Comment on above: Take one(1) tablet d aily. vitamin b12 1 mg oral capsule (11 sources) Vitamin B12 Start: 09-18-2019 End: 10-20-2019 take 1000 ug by mouth once daily Cyanocobalamin (Vitamin B-12) Discontinued 1000 MCG PO DAILY September 18, 2019 1:00am October 20, 2019 12:13pm Start: 03-29-2015 [facility] Vitamin B- 12 1000 MCG Oral Tablet Quantity: 0 Refills: 0 Ordered: 29-Mar-2015 La Melendez MD Start : 29-Mar-2015 Active Start: 03-29-2015 [facility] Vitamin B- 12 1000 MCG Oral Tablet Refills: 0 La Melendez MD Start : 29-Mar-2015 Active Problems Active Problems Problem Classification Problem Date Documented Date Episodic/Chronic Abdominal pain (20 sources) Abdominal pain; Translations: [Abdominal pain, unspecified site] Episodic Allergic reactions (1 source) H/O: non-drug allergy; Translations: [Allergy status to unspecified drugs, medicaments and biological substances status] Episodic Asthma (20 sources) Asthma; Translations: [Asthma, unspecified type, unspecified] Onset: 01-28-2023 10-22-2005 Chronic Cardiac dysrhythmias (20 sources) Tachycardia; Translations: [Tachycardia, [...] Translations: [Leukocytopenia, unspecified] Chronic Diverticulosis and diverticulitis (20 sources) Diverticulosis of colon; Translations: [Diverticulosis of large intestine without perforation or abscess without bleeding] Onset: 06-12-2007 06-12-2007 Chronic Endometriosis (20 sources) Endometriosis of uterus; Translations: [Uterine adenomyosis] Chronic Headache; including migraine (20 sources) Headache; Translations: [Headache] Episodic Immunizations and screening for infectious disease (20 sources) Patient encounter status; Translations: [Other specified vaccination] Episodic Malaise and fatigue (20 sources) Fatigue; Translations: [Other malaise and fatigue] 02-02-2025 Episodic Mood disorders (20 sources) Depressive disorder; Translations: [Depressive disorder, not elsewhere classified] Chronic Nonspecific chest pain (20 sources) Atypical chest pain; Translations: [Chest pain] Episodic Nutritional deficiencies (20 sources) Vitamin D deficiency; Translations: [Unspecified vitamin D deficiency] Onset: 01-28-2023 01-28-2023 Chronic Osteoarthritis (4 sources) Bilateral primary osteoarthritis of hip; Translations: [Osteoarthritis of left hip joint] Onset: 02-07-2022 06-24-2024 Chronic Other connective tissue disease (20 sources) [...] Dyspnea; Translations: [Other respiratory abnormalities] Episodic Other nutritional; endocrine; and metabolic disorders (14 sources) Obesity; Translations: [Obesity, unspecified] Chronic Other upper respiratory disease (20 sources) Allergic rhinitis; Translations: [Allergic rhinitis, cause unspecified] Onset: 01-28-2023 10-22-2005 Chronic Other upper respiratory infections (3 sources) Acute frontal sinusitis; Translations: [Acute frontal sinusitis, unspecified] Onset: 01-25-2025 01-25-2025 Episodic Residual codes; unclassified (20 sources) Postmenopausal state; Translations: [Asymptomatic postmenopausal status (age-related) (natural)] Episodic Residual codes; unclassified (1 source) Family history of malignant neoplasm of breast; Translations: [Family history of malignant neoplasm of breast] Onset: 08-09-2022 Episodic Residual codes; unclassified (6 sources) Asymptomatic menopausal state; Translations: [Asymptomatic menopausal state] Onset: 08-24-2022 Episodic Spondylosis; intervertebral disc disorders; other back problems (1 source) Spondylosis without myelopathy or radiculopathy, lumbar region; Translations: [Spondylosis w/o myelopathy or radiculopathy, lumbar region] Onset: 02-07-2022 Chronic Superficial injury; contusion (1 source) Contusion of right shoulder; Translations: [Contusion of right shoulder, initial encounter] 11-11-2023 Episodic Thyroid disorders (20 sources) Thyroid nodule; Translations: [Nontoxic uninodular goiter] Onset: 12-19-2023 01-28-2023 Chronic Unclassified (3 sources) Patient encounter status; Translations: [Screening for hyperlipidemia] 08-26-2024 Unclassified (2 sources) Low back pain, unspecified; Translations: [Low back pain, unspecified] Onset: 02-07-2022 Unclassified (1 source) Post Op Onset: 01-09-2024 Past or Other Problems Problem Classification Problem Date Documented Da te Episodic/Chronic Biliary tract disease (20 sources) Acute cholecystitis; Translations: [Acute cholecystitis] Onset: 2 Resolved: 2 Episodic Gastrointestinal hemorrhage (20 sources) Gastrointestinal hemorrhage; Translations: [Gastrointestinal hemorrhage, unspecified] Onset: 7 06-12-2007 Episodic Genitourinary symptoms and ill-defined conditions (17 sources) Dysuria; Translations: [Dysuria] Onset: 4 09-23-2024 Episodic Hemorrhoids (20 sources) Internal hemorrhoids; Translations: [Other hemorrhoids] Onset: 7 06-12-2007 Episodic Nutritional deficiencies (20 sources) Cobalamin deficiency; Translations: [Other B-complex deficiencies] Onset: 3 01-28-2023 Episodic Other and unspecified benign neoplasm (20 sources) Benign neoplasm of colon; Translations: [Benign neoplasm of colon, unspecified] Onset: 7 06-12-2007 Episodic Other connective tissue disease (20 sources) Biceps tendinitis; Translations: [Unspecified disorder of synovium and tendon, right upper arm] Onset: 4 11-26-2023 Episodic Other connective tissue disease (5 sources) Unspecified disorder of synovium and tendon, right upper arm; Translations: [Unspecified disorder of synovium, tendon, and bursa] Onset: 4 12-13-2023 Episodic Other ear and sense organ disorders (1 source) Tinnitus, bilateral; Translations: [Tinnitus, bilateral] Onset: 2 Episodic Other nervous system disorders (1 source) Other acute postprocedural pain; Translations: [Acute postoperative pain of extremity] Onset: 4 Episodic Other non-traumatic joint disorders (20 sources) Hip pain; Translations: [Pain in joint, pelvic region and thigh] 06-16-2024 Episodic Other non-traumatic joint disorders (3 sources) Pain in right hip; Translations: [Pain in right hip] Onset: 2 Episodic Other non-traumatic joint disorders (5 sources) Pain in left hip; Translations: [Pain in left hip] Onset: 2 Episodic Other non-traumatic joint disorders (2 sources) Pain in right shoulder; Translations: [Pain in joint, shoulder region] Onset: 4 11-12-2023 Episodic Other screening for suspected conditions (not mental disorders or infectious disease) (20 sources) Liver function tests abnormal; Translations: [Patient encounter status] Onset: 2 Episodic Residual codes; unclassified (20 sources) Hereditary disorder of endocrine system; Translations: [Genetic susceptibility to other disease] Onset: 4 12-19-2023 Episodic Residual codes; unclassified (1 source) Genetic susceptibility to other disease; Translations: [MTHFR mutation] Onset: 4 Episodic Spondylosis; intervertebral disc disorders; other back problems (20 sources) Low back pain; Translations: [Lumbago] Onset: 2 Resolved: 2 Episodic Sprains and strains (20 sources) Strain of muscle(s) and tendon(s) of the rotator cuff of right shoulder, subsequent encounter; Translations: [Other specified aftercare] Onset: 4 11-25-2023 Episodic Unclassified (20 sources) Complete Colonoscopy; Translations: [Complete Colonoscopy] Unclassified (1 source) Low back pain, unspecified; Translations: [Low back pain, unspecified] Onset: 2 Unclassified (11 sources) Onset: 3 Resolved: 5 01-28-2023 NEGATED: Highlighted row has not occurred!Residual codes; unclassified (9 sources) Disease Episodic Results Test Name Value Interpretation Reference Range Facility [facility] 07-14-2025 [facility] Telephone ([facility]) CARINA HAM ([id number]) 1955 F Date Time Provider Department 07/14/25 LINN ASENCIO During your visit today, we recorded the following information about you: Linn Asencio, Research Coordinator 07/14/2025 2:03 PM Signed IRB [id number]. [facility] Brain Study (CCBS) Computer Operations Supervisor: Doyle Rodriguez MD, , Colin Rodriguez MD, Dietitian: Reema Méndez and Email:[email or web address] Contacted patient by phone to discuss CCBS. Patient completed eligibility screener and is eligible for study. Patient agreed to receiving consent form by email. Study team will contact in the future to further discuss. Provided contact information for study team. Linn Asencio, Research Coordinator Allergies As of Date: 07/14/2025 Noted Allergy Reaction molds [Other] 01/03/2006 VALDECOXIB 10/22/2005 8 - GI Upset 6 - Diarrhea Date Reviewed: 09/23/2024 Reviewed by: Ryan Pinto Tech - Fully Assessed Reason for Visit: Appointment [186] Cmt: IRB [id number] Prescriptions as of 07/14/2025 - L-METHYLFOLATE 15 mg tab Take by mouth once daily. - calcium carbonate (CALCIUM 500) 500 mg calcium (1,250 mg) tablet Take 2 tablets by mouth once daily. - levothyroxine 88 mcg cap Take 88 mcg by mouth daily before breakfast. - montelukast (SINGULAIR) 10 mg tablet Take 10 mg by mouth daily at bedtime. - mometasone furoate(NASONEX 50 MCG/ACTUATION SPRAY) 2 sprays each nostril daily - loratadine (CLARITIN) 10 mg ORAL Tab Take one(1) tablet daily. As needed. - THERAPEUTIC MULTIVITAMIN TAB Take one(1) tablet daily. - ALBUTEROL 90 MCG/ACTUATION AEROSOL INHALER 2 puffs every four (4) hours as needed Problem List As Of Date 07/14/2025 Noted Resolved ALLERGIC RHINITIS NOS [J30.9] Asthma [J45.909] BENIGN NEOPLASM LG BOWEL [D12.6] 06/12/2007 GASTROINTEST HEMORR NOS [K92.2] 06/12/2007 INT HEMORRHOID W/O COMPL [K64.8] 06/12/2007 DIVERTICULOSIS OF COLON W/O BLEED [K57.30] 06/12/2007 Bilateral low back pain without sciatica [M54.5*02/15/2022 05/17/2022 Acute cholecystitis [K81.0] 03/27/2022 04/17/2022 Pre-op examination [Z01.818] 12/13/2023 Traumatic complete tear of right rotator cuff [*12/13/2023 Tendinopathy of right biceps tendon [M67.921] 12/13/2023 Hypothyroidism [E03.9] 12/19/2023 MTHFR mutation [Z15.89] 12/19/2023 Encounter Status:Closed by LINN ASENCIO on 07/14/25 Normal [facility] Basic Metabolic Profile (BMP )on 01-29-2025 BUN/CRE 28.5 RATIO High 10-20 [facility] Comment on above: Performed By: #### L 501.9520, L501.59020, L500.2500, L501.9310, L506.0400 #### [facility] Laboratory [address] [place], [address] Calcium [Mass/Vol] 9.8 mg/dL Normal 7.6-11.0 [facility] Comment on above: Performed By: #### L 501.9520, L501.31619, L500.2500, L501.9310, L506.0400 #### [facility] [address] [place], [address] Chloride [Moles/Vol] 104 mmol/L Normal 98-108 [facility] Comment on above: Performed By: #### L 501.9520, L501.56054, L500.2500, L501.9310, L506.0400 #### [facility] [address] [place], [address] CO2 [Moles/Vol] 27.5 mmol/L Normal 21.0-32.0 [facility] Comment on above: Performed By: #### L 501.9520, L501.27836, L500.2500, L501.9310, L506.0400 #### [facility] [address] [place], [address] Creatinine [Mass/Vol] 0.83 mg/dL Normal 0.70-1.20 [facility] Comment on above: Performed By: #### L 501.9520, L501.06854, L500.2500, L501.9310, L506.0400 #### [facility] [address] [place], [address] GAP 10 Normal 5-15 [facility] Comment on above: Performed By: #### L 501.9520, L501.20380, L500.2500, L501.9310, L506.0400 #### [facility] [address] [place], [address] GFR/1.73 sq M.predicted among non-blacks MDRD (S/P/Bld) [Vol rate/Area] 76 mL/min/{1.73_m2} Normal >60 [facility] Comment on above: Result Comment: mL/m in/1.73m2 CKD-EPI Creatinine Equation (2020) Performed By: #### L 501.9520, L501.89640, L500.2500, L501.9310, L506.0400 #### [facility] [address] [place], [address] Glucose [Mass/Vol] 79 mg/dL Normal 70-99 [facility] Comment on above: Performed By: #### L 501.9520, L501.61041, L500.2500, L501.9310, L506.0400 #### [facility] [address] [place], [address] Potassium [Moles/Vol] 3.5 mmol/L Normal 3.3-5.1 [facility] Comment on above: Performed By: #### L 501.9520, L501.99156, L500.2500, L501.9310, L506.0400 #### [facility] [address] [place], [address] Sodium [Moles/Vol] 142 mmol/L Normal 133-145 [facility] Comment on above: Performed By: #### L 501.9520, L501.20704, L500.2500, L501.9310, L506.0400 #### [facility] [address] [place], [address] Urea nitrogen [Mass/Vol] 24 mg/dL High 4-19 [facility] Comment on above: Performed By: #### L 501.9520, L501.45153, L500.2500, L501.9310, L506.0400 #### [facility] [address] [place], [address] Free T3on 01-29-2025 Free T3 [Mass/Vol] 2.1 pg/mL Low 2.18-3.98 [facility] Comment on above: Order Comment: N Performed By: #### L 501.9520, L501.10320, L500.2500, L501.9310, L506.0400 #### [facility] [address] [place], [address] T4 Free Directon 01-29-2025 T4 FREE DIRECT 1.50 ng/dL High 0.76-1.46 [facility] Comment on above: Order Comment: N Performed By: #### L 501.9520, L501.62892, L500.2500, L501.9310, L506.0400 #### [facility] [address] [place], [place], [address] T4 Total, Thyroxinon 025 T4 [Mass/Vol] 9.6 ug/dL Normal 4.8-13.9 [facility] Comment on above: Performed By: #### L 501.9520, L501.32767, L500.2500, L501.9310, L506.0400 #### [facility] [address], [place], [id number] Thyroid Stim Hormone (TSH)on 01-29-2025 TSH 1.020 uIU/mL Normal 0.300-4.200 [facility] Comment on above: Performed By: #### L 501.9520, L501.45125, L500.2500, L501.9310, L506.0400 #### [facility] [address], [place], [address] Bacteria identifiedon 2023 Bacteria identified Cx Nom (U) Test: Urine Culture Specimen Source: Clean Catch/Voided Specimen Type: Urine Specimen Date: 09/23/2024 1519 Result Date: 09/25/2024 0720 Result Status: Final result Abnormal: No Resulting Lab: [facility] [address] [place] [address] CULTURE No growth [facility] Comment on above: Performed By: #### 6 30-4 #### DAVE Peña ([id number]) [facility] ([facility]) [address] [place], [place] [id number] CNOVon 09-23-2024 CNOV Office Visit (AGHWW1 ) CARINA HAM ([id number]) 1955 F Date Time Provider Department 09/23/24 10:15 AM GEORGIA BEDOYA [id number] During your visit today, we recorded the following information about you: Temperature Weight Height 98.3 degrees 86.2 kg 1.676 m Ryan Pinto Tech 09/25/2024 9:10 PM Signed REVIEW OF SYSTEMS: GENERAL: Well developed, well nourished. No acute distress PAIN: Negative for pain, history of chronic pain or current treatment for chronic pain conditions CARDIOVASCULAR: Negative for chest pain, leg swelling and palpations. MSK: Negative for joint swelling SKIN: Negative for lesions, rash, itching, metal sensitivity NEURO: Negative for seizure, trauma, numbness/tingling of extremities. ENDOCRINE: Negative for diabetic associated symptoms HEMATOLOGY: Negative for excessive bleeding, clots, bleeding disorders. Georgia Bedoya DO 09/25/2024 9:10 PM Signed Patient presents with: Right Shoulder - Follow Up, Pain Carina Ham is a 69 year old female who presents for follow-up 9 months status post right shoulder arthroscopy with rotator cuff repair, biceps tenodesis, subacromial decompression. The patient completed physical therapy in July. She is doing very well at this time. She notes occasional achiness in her right shoulder with the change in weather, however besides this has been doing very well. She notes significant improvement in her symptoms as compared to her preoperative state. The patient also attended physical therapy for her left hip. She denies significant pain however does note stiffness with external rotation. Reviewed nursing note and current pain scale. PAST MEDICAL HISTORY Diagnosis Date Allergic rhinitis, cause unspecified Allergic rhinitis Benign neoplasm of colon Diverticulosis of colon (without mention of hemorrhage) Exercise-induced asthma Hypothyroidism MTHFR mutation Traumatic complete tear of right rotator cuff PAST SURGICAL HISTORY Procedure Laterality Date APPENDECTOMY COLONOSCOPY FLX DX W/COLLJ SPEC WHEN PFRMD 06/12/2007 Colonoscopy DILATION AND CURETTAGE DXAND/THER NONOBSTETRIC Dilation AND curettage LAPS SURG CHOLECYSTECTOMY W/CHOLANGIOGRAPHY 03/26/[address] Ying OOPHORECTOMY PARTIAL/TOTAL UNI/BI with the right remaining, but no tube THYROIDECTOMY SUBTOTAL/PARTIAL 12/2016 TOTAL ABDOMINAL HYSTERECT W/WO RMVL TUBE OVARY Hysterectomy, ALBERTO FAMILY HISTORY Problem Relation Age of Onset Thyroid Mother graves disease Hypertension Father orthostatic and tia's other (Nilam Umanzor) Father Breast Cancer Maternal Grandmother Breast Cancer Paternal Grandmother unsure Social History Tobacco Use Smoking status: Never Smokeless tobacco: Never Vaping Use Vaping status: Never Used Substance Use Topics Alcohol use: Yes Comment: wine with dinner at times Drug use: No Medications: Current Outpatient Medications Medication Sig L-METHYLFOLATE 15 mg tab Take by mouth once daily. calcium carbonate (CALCIUM 500) 500 mg calcium [...] puffs every four (4) hours as needed No current facility-administered medications for this visit. Allergies: ALLERGIES Allergen Reactions Molds [Other] Valdecoxib GI Upset, Diarrhea Physical Examination: Temp 98.3 Ht 5' 6" (1.68m) Wt 190 lb (86.2kg) BMI 30.68 kg/(m2). Physical exam: General: AANDO x 3; NAD. Cooperative throughout entire interview. Head: Atraumatic, normocephalic Neck: Trachea midline Chest: Unlabored breathing Neuro: Grossly intact Right Shoulder Inspection: No malalignment, atrophy, erythema, swelling, warmth, or scapular winging. AC prominence normal Active ROM Right Shoulder: Forward Flexion: 180 degrees Abduction: 180 degrees External Rotation at zero degrees of abduction: 60 degrees Internal rotation: L4 Active ROM Left Shoulder: Forward Flexion: 180 degrees Abduction: 180 degrees External Rotation at zero degrees of abduction: 60 degrees Internal rotation: L4 Special tests: Empty can: Negative Strength Right Shoulder Deltoid: 5/5 Biceps: 5/5 Triceps 5/5 Supraspinatus 5/5 External rotation 5/5 Internal rotation 5/5 Images: XR Left Hip: Moderate degenerative changes left hip Assessment and Plan: 1. Primary osteoarthritis of left hip - ICD9: 715.15, ICD10: M16.12 (primary diagnosis) 2. Traumatic complete tear of right rotator cuff, sub (more content not included)... Normal [facility] POCT UA Automated manually r esultedon 09-23-2024 Appearance (U) Cloudy Abnormal Clear [facility] Work Phone: [phone] Glucose Test strip (U) [Mass/Vol] Negative NEGATIVE mg/dl [facility] Work Phone: [phone] Hemoglobin Ql (U) Negative NEGATIVE [facility] Work Phone: [phone] Interpretation and review of laboratory results Abnormal [facility] Work Phone: [phone] Leukocyte esterase Test strip Ql (U) Negative NEGATIVE [facility] Work Phone: [phone] Nitrite Ql (U) Negative NEGATIVE [facility] Work Phone: [phone] pH (U) 8.0 [pH] No Reference Range Established [facility] Work Phone: [phone] POC Bilirubin, Urine Negative NEGATIVE [facility] Work Phone: [phone] POC Color, Urine Yellow Straw, Yellow, Light-Yellow [facility] Work Phone: [phone] POC Ketones, Urine Negative NEGATIVE mg/dl [facility] Work Phone: [phone] POC Protein, Urine Negative NEGATIVE, 30 (1+) mg/dl [facility] Work Phone: POC Specific [place], Urine 1.020 1.005 - 1.035 [facility] Work Phone: POC Urobilinogen, Urine 0.2 0.2, 1.0 EU/DL [facility] Work Phone: [facility] Work Phone: BI MAMMO BILATERAL SCREENING TOMOSYNTHESISon 08-26-2024 BI MAMMO BILATERAL SCREENING TOMOSYNTHESIS Interpreted By: Chantal Shahid, STUDY: BI MAMMO BILATERAL SCREENING TOMOSYNTHESIS; 08/26/2024 2:16 pm ACCESSION NUMBER(S): [id number] ORDERING CLINICIAN: LA MELENDEZ INDICATION: Screening. ,Z12.31 Encounter for screening mammogram for malignant neoplasm of breast COMPARISON: 08/09/2022, 02/02/2021 FINDINGS: 2D and tomosynthesis images were reviewed at 1 mm slice thickness. Density: There are scattered areas of fibroglandular density. There are bilateral benign masses. No suspicious masses or calcifications are identified. IMPRESSION: No mammographic evidence of malignancy. BI-RADS CATEGORY: BI-RADS Category: 2 Benign. Recommendation: Annual Screening. Recommended Date: 1 Year. Laterality: Bilateral. For any future breast imaging appointments, please call [phone] MACRO: None Signed by: Chantal Shahid 08/30/2024 4:39 PM Dictation workstation: [employer] [facility] DXA Skeletal system Views fo r bone densityon 08-26-2024 DEXA: According to World Health Organization criteria, classification is normal. Followup recommended in 2 years or sooner as clinically warranted. All images and detailed analysis are available on the Radiology PACS. MACRO: None Signed by: Mariama Ling 08/26/2024 9:05 PM Dictation workstation: [id number] MMODAL Interpreted By: Mariama Ling, STUDY: DEXA BONE [id number]/26/2024 2:30 pm INDICATION: Signs/Symptoms:postmeno pausal. The patient is a 69 y/o year old F. COMPARISON: 08/24/2022 ACCESSION NUMBER(S): [id number] ORDERING CLINICIAN: LA MELENDEZ TECHNIQUE: DEXA BONE DENSITY FINDINGS: SPINE L1-L4 Bone Mineral Density: 1.308 T-Score 0.9 Z-Score 2.6 Classification: Not reported Bone Mineral Density change vs baseline: Not reported Bone Mineral Density change vs previous: Not reported LEFT FEMUR -TOTAL Bone Mineral Density: 1.009 T-Score 0.0 Z-Score 1.4 Classification: Not reported Bone Mineral Density change vs baseline: Not reported Bone Mineral Density change vs previous: Not reported LEFT FEMUR -NECK Bone Mineral Density: 0.985 T-Score -0.4 Z-Score 1.3 Classification: Not reported World Health Organization (WHO) criteria for post-menopausal, Women: Normal: T-score at or above -1 SD Osteopenia: T-score between -1 and -2.5 SD Osteoporosis: T-score at or below -2.5 SD 10-year Fracture Risk: Major Osteoporotic Fracture Not reported Hip Fracture Not reported Note: If no FRAX score is reported, it is because: Some T-score for Spine Total or Hip Total or Femoral Neck at or below -2.5 MMODAL Mariama Ling MD - 08/26/2024 Interpreted By: Mariama Ling, STUDY: DEXA BONE [id number]/26/2024 2:30 pm INDICATION: Signs/Symptoms:postmeno pausal. The patient is a 69 y/o year old F. COMPARISON: 08/24/2022 ACCESSION NUMBER(S): [id number] ORDERING CLINICIAN: LA MELENDEZ TECHNIQUE: DEXA BONE DENSITY FINDINGS: SPINE L1-L4 Bone Mineral Density: 1.308 T-Score 0.9 Z-Score 2.6 Classification: Not reported Bone Mineral Density change vs baseline: Not reported Bone Mineral Density change vs previous: Not reported LEFT FEMUR -TOTAL Bone Mineral Density: 1.009 T-Score 0.0 Z-Score 1.4 Classification: Not reported Bone Mineral Density change vs baseline: Not reported Bone Mineral Density change vs previous: Not reported LEFT FEMUR -NECK Bone Mineral Density: 0.985 T-Score -0.4 Z-Score 1.3 Classification: Not reported World Health Organization (WHO) criteria for post-menopausal, Women: Normal: T-score at or above -1 SD Osteopenia: T-score between -1 and -2.5 SD Osteoporosis: T-score at or below -2.5 SD 10-year Fracture Risk: Major Osteoporotic Fracture Not reported Hip Fracture Not reported Note: If no FRAX score is reported, it is because: Some T-score for Spine Total or Hip Total or Femoral Neck at or below -2.5 IMPRESSION: DEXA: According to World Health Organization criteria, classification is normal. Followup recommended in 2 years or sooner as clinically warranted. All images and detailed analysis are available on the Radiology PACS. MACRO: None Signed by: Mariama Ling 08/26/2024 9:05 PM Dictation workstation: [id number] [facility] Work Phone: Radiology Study observation (narrative) [facility] Work Phone: DXA Skeletal system Views fo r bone densityOrdered By: Mariama Ling on 08-26-2024 [facility] Work Phone: DEXA BONE DENSITYon 08-11-20 DEXA BONE DENSITY Interpreted By: Mariama Ling, STUDY: DEXA BONE [id number]/26/2024 2:30 pm INDICATION: Signs/Symptoms:postmeno pausal. The patient is a 69 y/o year old F. COMPARISON: 08/24/2022 ACCESSION NUMBER(S): [id number] ORDERING CLINICIAN: LA MELENDEZ TECHNIQUE: DEXA BONE DENSITY FINDINGS: SPINE L1-L4 Bone Mineral Density: 1.308 T-Score 0.9 Z-Score 2.6 Classification: Not reported Bone Mineral Density change vs baseline: Not reported Bone Mineral Density change vs previous: Not reported LEFT FEMUR -TOTAL Bone Mineral Density: 1.009 T-Score 0.0 Z-Score 1.4 Classification: Not reported Bone Mineral Density change vs baseline: Not reported Bone Mineral Density change vs previous: Not reported LEFT FEMUR -NECK Bone Mineral Density: 0.985 T-Score -0.4 Z-Score 1.3 Classification: Not reported World Health Organization (WHO) criteria for post-menopausal, Women: Normal: T-score at or above -1 SD Osteopenia: T-score between -1 and -2.5 SD Osteoporosis: T-score at or below -2.5 SD 10-year Fracture Risk: Major Osteoporotic Fracture Not reported Hip Fracture Not reported Note: If no FRAX score is reported, it is because: Some T-score for Spine Total or Hip Total or Femoral Neck at or below -2.5 IMPRESSION: DEXA: According to World Health Organization criteria, classification is normal. Followup recommended in 2 years or sooner as clinically warranted. All images and detailed analysis are available on the Radiology PACS. MACRO: None Signed by: Mariama Ling 08/26/2024 9:05 PM Dictation workstation: [id number] [facility] CNTHERAPYon 08-06-2024 CNTHERAPY OT/PT/Speech Visit (PTWS) CARINA HAM ([id number]) 1955 F Date Time Provider Department 08/06/24 10:45 AM CALVIN WHITE PTDARRYL Date Time Provider Department [place] 08/06/2024 10:45 AM [id number], SEAN PTDARRYL Hack[place] Reason for Visit: PT Discharge [752] Primary Visit Diagnosis:Traumatic complete tear of right rotator cuff, subsequent encounter [S46.011D] Allergies As of Date: 08/06/2024 Noted Allergy Reaction molds [Other] 01/03/2006 VALDECOXIB 10/22/2005 8 - GI Upset 6 - Diarrhea Date Reviewed: 06/24/2024 Reviewed by: Ryan Pinto Tech - Fully Assessed Prescriptions as of 08/07/2024 - L-METHYLFOLATE 15 mg tab Take by mouth once daily. - calcium carbonate (CALCIUM 500) 500 mg calcium (1,250 mg) tablet Take 2 tablets by mouth once daily. - levothyroxine 88 mcg cap Take 88 mcg by mouth daily before breakfast. - montelukast (SINGULAIR) 10 mg tablet Take 10 mg by mouth daily at bedtime. - mometasone furoate(NASONEX 50 MCG/ACTUATION SPRAY) 2 sprays each nostril daily - loratadine (CLARITIN) 10 mg ORAL Tab Take one(1) tablet daily. As needed. - THERAPEUTIC MULTIVITAMIN TAB Take one(1) tablet daily. - ALBUTEROL 90 MCG/ACTUATION AEROSOL INHALER 2 puffs every four (4) hours as needed Normal [facility] CNTHERAPYon 07-23-2024 CNTHERAPY OT/PT/Speech Visit (PTWS) CARINA HAM ([id number]) 1955 F Date Time Provider Department 07/23/24 10:45 AM CALVIN WHITE PTDARRYL Date Time Provider Department Center 07/23/2024 10:45 AM [id number], SEAN PTDARRYL [place] Reason for Visit: Physical Therapy [503] Primary Visit Diagnosis:Traumatic complete tear of right rotator cuff, subsequent encounter [S46.011D] Allergies As of Date: 07/23/2024 Noted Allergy Reaction molds [Other] 01/03/2006 VALDECOXIB 10/22/2005 8 - GI Upset 6 - Diarrhea Date Reviewed: 06/24/2024 Reviewed by: Ryan Pinto Tech - Fully Assessed Prescriptions as of 07/23/2024 - L-METHYLFOLATE 15 mg tab Take by mouth once daily. - calcium carbonate (CALCIUM 500) 500 mg calcium (1,250 mg) tablet Take 2 tablets by mouth once daily. - levothyroxine 88 mcg cap Take 88 mcg by mouth daily before breakfast. - montelukast (SINGULAIR) 10 mg tablet Take 10 mg by mouth daily at bedtime. - mometasone furoate(NASONEX 50 MCG/ACTUATION SPRAY) 2 sprays each nostril daily - loratadine (CLARITIN) 10 mg ORAL Tab Take one(1) tablet daily. As needed. - THERAPEUTIC MULTIVITAMIN TAB Take one(1) tablet daily. - ALBUTEROL 90 MCG/ACTUATION AEROSOL INHALER 2 puffs every four (4) hours as needed Aircraft Assembler: Therapy (PT/OT/Speech/Resp) ID: [id number] 07/23/2024 11:00 AM Author: CALVIN WHITE Signed by CALVIN WHITE PT on 07/23/2024 at 11:00 AM Document text: Program_ID:[id number] Access Code: [email or web address] URL: [email or web address] Date: 07-23-2024 Prepared By: Calvin White Program Notes Exercises - Seated Shoulder Flexion AAROM with Catalina Behind - 2-3 x daily - 7 x weekly - 2 sets - 10 reps - Sidelying Shoulder External Rotation - 1 x daily - 7 x weekly - 3 sets - 10 reps - Shoulder Internal Rotation with Resistance - 1 x daily - 7 x weekly - 3 sets - 10 reps - Shoulder Alphabet with Ball at Wall - 1 x daily - 7 x weekly - 3 sets - 10 reps - Scapular Retraction with Resistance - 1 x daily - 7 x weekly - 3 sets - 10 reps - Standing Wall Ball Circles with Mini Liberian Ball - 1 x daily - 7 x weekly - 3 sets - 10 reps - Standing Shoulder Scaption - 1 x daily - 7 x weekly - 3 sets - 10 reps - Shoulder External Rotation with Anchored Resistance - 1 x daily - 7 x weekly - 3 sets - 10 reps - Shoulder Abduction - Thumbs Up - 1 x daily - 7 x weekly - 3 sets - 10 reps - Suitcase and Stitcher Tape Controlled Machine's Carry with Kettlebells - 1 x daily - 7 x weekly - 3 sets - 10 reps Addendum Therapy (PT/OT/Speech/Resp) ID: [id number] 07/23/2024 10:58 AM Author: CALVIN WHITE Signed by CALVIN WHITE PT on 07/23/2024 at 10:58 AM * * * This document replaces document [id number] * * * Document text: Program_ID:[id number] Access Code: [email or web address] URL: [email or web address] Date: 07-23-2024 Prepared By: Calvin White Program Notes Exercises - Supine Bridge - 1 x daily - 7 x weekly - 3 sets - 10 reps - Supine Figure 4 Piriformis Stretch - 3 x daily - 7 x weekly - 1 sets - 3 reps - Clamshell with Resistance - 1 x daily - 7 x weekly - 3 sets - 10 reps - Side Stepping with Resistance at Ankles - 1 x daily - 7 x weekly - 3 sets - 10 reps - Forward Monster Walks - 1 x daily - 7 x weekly - 3 sets - 10 reps - Backward Monster Walks - 1 x daily - 7 x weekly - 3 sets - 10 reps - Step Up - 1 x daily - 7 x weekly - 3 sets - 10 reps - Sidelying Hip Abduction - 1 x daily - 7 x weekly - 3 sets - 10 reps - Sidelying Bent Knee Hip Flexion - 1 x daily - 7 x weekly - 3 sets - 10 reps - Sidelying Hip Circles - 1 x daily - 7 x weekly - 3 sets - 10 reps Normal [facility] THERAPY NTon 07-23-2024 THERAPY NT HNO ID: [id number] Author: CALVIN WHITE PT Service: ? Author Type: Physical Therapist Type: Therapy (PT/OT/Speech/Resp) Filed: 07/23/2024 11:00 Note Text: Program_ID:[id number] Access Code: [email or web address] URL: [email or web address] Date: 07-23-2024 Prepared By: Calvin White Program Notes Exercises - Seated Shoulder Flexion AAROM with Catalina Behind - 2-3 x daily - 7 x weekly - 2 sets - 10 reps - Sidelying Shoulder External Rotation - 1 x daily - 7 x weekly - 3 sets - 10 reps - Shoulder Internal Rotation with Resistance - 1 x daily - 7 x weekly - 3 sets - 10 reps - Shoulder Alphabet with Ball at Wall - 1 x daily - 7 x weekly - 3 sets - 10 reps - Scapular Retraction with Resistance - 1 x daily - 7 x weekly - 3 sets - 10 reps - Standing Wall Ball Circles with Mini Liberian Ball - 1 x daily - 7 x weekly - 3 sets - 10 reps - Standing Shoulder Scaption - 1 x daily - 7 x weekly - 3 sets - 10 reps - Shoulder External Rotation with Anchored Resistance - 1 x daily - 7 x weekly - 3 sets - 10 reps - Shoulder Abduction - Thumbs Up - 1 x daily - 7 x weekly - 3 sets - 10 reps - Suitcase and Stitcher Tape Controlled Machine's Carry with Kettlebells - 1 x daily - 7 x weekly - 3 sets - 10 reps Normal [facility] THERAPY NT HNO ID: [id number] Author: CALVIN WHITE PT Service: ? Author Type: Physical Therapist Type: Therapy (PT/OT/Speech/Resp) Filed: 07/23/2024 10:58 Note Text: Program_ID:[id number] Access Code: [email or web address] URL: [email or web address] Date: 07-23-2024 Prepared By: Calvin White Program Notes Exercises - Supine Bridge - 1 x daily - 7 x weekly - 3 sets - 10 reps - Supine Figure 4 Piriformis Stretch - 3 x daily - 7 x weekly - 1 sets - 3 reps - Clamshell with Resistance - 1 x daily - 7 x weekly - 3 sets - 10 reps - Side Stepping with Resistance at Ankles - 1 x daily - 7 x weekly - 3 sets - 10 reps - Forward Monster Walks - 1 x daily - 7 x weekly - 3 sets - 10 reps - Backward Monster Walks - 1 x daily - 7 x weekly - 3 sets - 10 reps - Step Up - 1 x daily - 7 x weekly - 3 sets - 10 reps - Sidelying Hip Abduction - 1 x daily - 7 x weekly - 3 sets - 10 reps - Sidelying Bent Knee Hip Flexion - 1 x daily - 7 x weekly - 3 sets - 10 reps - Sidelying Hip Circles - 1 x daily - 7 x weekly - 3 sets - 10 reps Normal [facility] CNOVon 06-24-2024 CNOV Office Visit ([id number] ) CARINA HAM ([id number]) 1955 F Date Time Provider Department 06/24/24 10:15 AM GEORGIA BEDOYA [id number] During your visit today, we recorded the following information about you: Temperature Weight Height 98.2 degrees 86.2 kg 1.676 m Ryan Pinto Tech 06/25/2024 10:08 AM Signed REVIEW OF SYSTEMS: GENERAL: Well developed, well nourished. No acute distress PAIN: Negative for pain, history of chronic pain or current treatment for chronic pain conditions CARDIOVASCULAR: Negative for chest pain, leg swelling and palpations. MSK: Negative for joint swelling SKIN: Negative for lesions, rash, itching, metal sensitivity NEURO: Negative for seizure, trauma, numbness/tingling of extremities. ENDOCRINE: Negative for diabetic associated symptoms HEMATOLOGY: Negative for excessive bleeding, clots, bleeding disorders. Georgia Bedoya DO 06/25/2024 10:08 AM Signed Patient presents with: Right Shoulder - Follow Up, Pain Carina Ham is a 68 year old female who presents for 6-month follow-up status post right shoulder arthroscopy with rotator cuff repair, subacromial decompression, and biceps tenodesis. The patient is doing very well at this time. Her preoperative symptoms have resolved. She continues to be active in physical therapy and is working on strengthening of her right shoulder. She denies any pain in her right shoulder. She is also here today for evaluation of her left hip. She has occasional pain in the groin on the left but is mostly bothered by lack of flexibility and stiffness in the left hip. She denies injury or trauma to the left hip. She underwent x-rays of the left hip on 06/17/2024 through [facility]. Reviewed nursing note and current pain scale. PAST MEDICAL HISTORY No date: Allergic rhinitis, cause unspecified Comment: Allergic rhinitis No date: Benign neoplasm of colon No date: Diverticulosis of colon (without mention of hemorrhage) No date: Exercise-induced asthma No date: Hypothyroidism No date: MTHFR mutation No date: Traumatic complete tear of right rotator cuff PAST SURGICAL HISTORY No date: APPENDECTOMY 06/12/2007: COLONOSCOPY FLX DX W/COLLJ SPEC WHEN PFRMD Comment: Colonoscopy No date: DILATION AND CURETTAGE DXAND/THER NONOBSTETRIC Comment: Dilation AND curettage 03/26/2022: LAPS SURG CHOLECYSTECTOMY W/CHOLANGIOGRAPHY Comment: using fluroscopy. Dr. Ying No date: OOPHORECTOMY PARTIAL/TOTAL UNI/BI Comment: with the right remaining, but no tube 12/2016: THYROIDECTOMY SUBTOTAL/PARTIAL No date: TOTAL ABDOMINAL HYSTERECT W/WO RMVL TUBE OVARY Comment: Hysterectomy, ALBERTO FAMILY HISTORY Problem Relation Age of Onset Thyroid Mother graves disease Hypertension Father orthostatic and tia's other (Shy Drager) Father Breast Cancer Maternal Grandmother Breast Cancer Paternal Grandmother unsure Social History Tobacco Use Smoking status: Never Smokeless tobacco: Never Vaping Use Vaping status: Never Used Substance Use Topics Alcohol use: Yes Comment: wine with dinner at times Drug use: No Medications: Current Outpatient Medications Medication Sig L-METHYLFOLATE 15 mg tab Take by mouth once daily. calcium carbonate (CALCIUM 500) 500 mg calcium (1,250 mg) tablet Take 2 tablets by mouth once daily. levothyroxine 88 mcg cap Take 88 mcg by mouth daily before breakfast. montelukast (SINGULAIR) 10 mg tablet Take 10 mg by mouth daily at bedtime. loratadine (CLARITIN) 10 mg ORAL Tab Take one(1) tablet daily. As needed. THERAPEUTIC MULTIVITAMIN TAB Take one(1) tablet daily. mometasone furoate(NASONEX 50 MCG/ACTUATION SPRAY) 2 sprays each nostril daily ALBUTEROL 90 MCG/ACTUATION AEROSOL INHALER 2 puffs every four (4) hours as needed No current facility-administered medications for this visit. Allergies: ALLERGIES Allergen Reactions Molds [Other] Valdecoxib GI Upset, Diarrhea Physical Examination: Temp 98.2 Ht 5' 6" (1.68m) Wt 190 lb (86.2kg) BMI 30.68 kg/(m2). Physical exam: General: AANDO x 3; NAD. Cooperative throughout entire interview. Head: Atraumatic, normocephalic Neck: Trachea midline Chest: Unlabored breathing Neuro: Grossly intact Right Shoulder Inspection: well healed surgical incisions Active ROM Right Shoulder: Forward Flexion: 180 degrees Abduction: 110 degrees External Rotation at zero degrees of abduction: 60 degrees Internal rotation: L4 Active ROM Left Shoulder: Forward Flexion: 180 degrees Abduction: 180 degrees External Rotation at zero degrees of abduction: 60 degrees Internal rotation: L4 Special tests: Garza: negative Lift Off: negative Empty can: negative Strength right Shoulder Deltoid: 5/5 Biceps: 5/5 Triceps 5/5 Supraspinatus 5/5 External rotation 4+/5 Internal rotation 5/5 Left Hip Normal alignment. No leg length discrepa (more content not included)... Normal [facility] XR HIP LEFT WITH PELVIS WHEN PERFORMED 2 OR 3 VIEWSon 06-16-2024 XR HIP LEFT WITH PELVIS WHEN PERFORMED 2 OR 3 VIEWS Interpreted By: Beatriz Cain, STUDY: Left hip, two views. INDICATION: Signs/Symptoms:left hip pain. COMPARISON: None. ACCESSION NUMBER(S): [id number] ORDERING CLINICIAN: LA MELENDEZ FINDINGS: No acute fracture or malalignment. Left hip joint space is well maintained. Mild left hip osteoarthrosis with osteophytes. Left SI joint degenerative changes with sclerosis and osteophytes. Soft tissues are within normal limits. IMPRESSION: 1. Mild degenerative changes of the left hip and left SI joint. MACRO: None. Signed by: Beatriz Cain 06/18/2024 6:11 AM Dictation workstation: [id number] [facility] CBC W/Diff, Automatedon 05-16 Absolute Lymph 1.78 X10 3/uL Normal 0.83-4.51 [facility] Comment on above: Performed By: #### L 500.4100, L506.0400, L501.78356, L500.4050, L100.0100, L501.9520 #### [facility] [address] [place], [place], [id number] Absolute Neut 2.1 X10 3/uL Normal 2.0-7.7 [facility] Comment on above: Performed By: #### L 500.4100, L506.0400, L501.29621, L500.4050, L100.0100, L501.9520 #### [facility] [address] [place], [address] Basophils/100 WBC (Bld) 0.9 % Normal 0-1 [facility] Comment on above: Performed By: #### L 500.4100, L506.0400, L501.16501, L500.4050, L100.0100, L501.9520 #### [facility] [address] [place], [address] Eosinophils/100 WBC (Bld) 4.1 % Normal 0-5 [facility] Comment on above: Performed By: #### L 500.4100, L506.0400, L501.37851, L500.4050, L100.0100, L501.9520 #### [facility] [address] [place], [address] Erythrocyte distribution width (RBC) [Ratio] 12.7 % Normal 11.6-14.6 [facility] Comment on above: Performed By: #### L 500.4100, L506.0400, L501.94398, L500.4050, L100.0100, L501.9520 #### [facility] [address] [place], [address] Hematocrit (Bld) [Volume fraction] 42.6 % Normal 37-47 [facility] Comment on above: Performed By: #### L 500.4100, L506.0400, L501.00269, L500.4050, L100.0100, L501.9520 #### [facility] [address] [place], [address] Hemoglobin (Bld) [Mass/Vol] 14.0 g/dL Normal 12.0-15.0 [facility] Comment on above: Performed By: #### L 500.4100, L506.0400, L501.38286, L500.4050, L100.0100, L501.9520 #### [facility] [address] [place], [address] IG% 0.400 Normal 0.0-0.9 [facility] Comment on above: Result Comment: IG% - Immature Granulocytes (promyelocytes, myelocytes and metamyelocytes) > 1% indicates that a LEFT SHIFT is Present. Performed By: #### L 500.4100, L506.0400, L501.04517, L500.4050, L100.0100, L501.9520 #### [facility] [address] [place], [address] Lymphocytes/100 WBC (Bld) 38.8 % Normal 19-41 [facility] Comment on above: Performed By: #### L 500.4100, L506.0400, L501.25206, L500.4050, L100.0100, L501.9520 #### [facility] [address] [place], [address] MCH (RBC) [Entitic mass] 30.6 pg Normal 27.0-32.0 [facility] Comment on above: Performed By: #### L 500.4100, L506.0400, L501.22732, L500.4050, L100.0100, L501.9520 #### [facility] [address] [place], [address] MCHC (RBC) [Mass/Vol] 32.9 g/dL Normal 32-36 [facility] Comment on above: Performed By: #### L 500.4100, L506.0400, L501.89350, L500.4050, L100.0100, L501.9520 #### [facility] [address] [place], [address] MCV (RBC) [Entitic vol] 93.2 fL Normal 81-99 [facility] Comment on above: Performed By: #### L 500.4100, L506.0400, L501.65218, L500.4050, L100.0100, L501.9520 #### [facility] [address] [place], [address] Monocytes/100 WBC (Bld) 10.5 % High 0-10 [facility] Comment on above: Performed By: #### L 500.4100, L506.0400, L501.02769, L500.4050, L100.0100, L501.9520 #### [facility] [address] [place], [address] Neutrophils/100 WBC (Bld) 45.3 % Low 47-70 [facility] Comment on above: Performed By: #### L 500.4100, L506.0400, L501.23214, L500.4050, L100.0100, L501.9520 #### [facility] [address] [place], [address] Nucleated RBC (Bld) [#/Vol] 0 10*3/uL Normal 0-5 [facility] Comment on above: Performed By: #### L 500.4100, L506.0400, L501.15629, L500.4050, L100.0100, L501.9520 #### [facility] [address] [place], [address] Platelet mean volume (Bld) [Entitic vol] 11.0 fL Normal 6.2-12.0 [facility] Comment on above: Performed By: #### L 500.4100, L506.0400, L501.52097, L500.4050, L100.0100, L501.9520 #### [facility] [address] [place], [address] Platelets (Bld) [#/Vol] 260 10*3/uL Normal 150-450 [facility] Comment on above: Performed By: #### L 500.4100, L506.0400, L501.82623, L500.4050, L100.0100, L501.9520 #### [facility] [address] [place], [address] RBC (Bld) [#/Vol] 4.57 10*6/uL Normal 4.2-5.4 [facility] Comment on above: Performed By: #### L 500.4100, L506.0400, L501.65620, L500.4050, L100.0100, L501.9520 #### [facility] [address] [place], [address] RDW SD 43.2 fl Normal 35.1-43.9 [facility] Comment on above: Performed By: #### L 500.4100, L506.0400, L501.85640, L500.4050, L100.0100, L501.9520 #### [facility] [address] [place], [address] WBC (Bld) [#/Vol] 4.6 10*3/uL Normal 4.4-11.0 [facility] Comment on above: Performed By: #### L 500.4100, L506.0400, L501.50869, L500.4050, L100.0100, L501.9520 #### [facility] [address] [place], [address] Comprehensive Metabolic [facility] 06-12-2024 Albumin [Mass/Vol] 3.7 g/dL Normal 3.2-5.0 [facility] Comment on above: Performed By: #### L 500.4100, L506.0400, L501.05735, L500.4050, L100.0100, L501.9520 #### [facility] [address] [place], [address] Albumin/Globulin [Mass ratio] 1.1 {ratio} Normal 0.9-2.4 [facility] Comment on above: Performed By: #### L 500.4100, L506.0400, L501.10837, L500.4050, L100.0100, L501.9520 #### [facility] [address] [place], [address] ALK P 69 U/L Normal 45-117 [facility] Comment on above: Performed By: #### L 500.4100, L506.0400, L501.39253, L500.4050, L100.0100, L501.9520 #### [facility] [address] [place], [address] ALT [Catalytic activity/Vol] 54 U/L Normal 13-56 [facility] Comment on above: Performed By: #### L 500.4100, L506.0400, L501.13095, L500.4050, L100.0100, L501.9520 #### [facility] [address] [place], [address] AST [Catalytic activity/Vol] 29 U/L Normal 15-37 [facility] Comment on above: Performed By: #### L 500.4100, L506.0400, L501.47524, L500.4050, L100.0100, L501.9520 #### [facility] [address] [place], [address] Bilirubin [Mass/Vol] 0.50 mg/dL Normal 0.20-1.00 [facility] Comment on above: Result Comment: For patients on eltrombopag therapy, use of Dimension [place] TBIL is not recommended. Performed By: #### L 500.4100, L506.0400, L501.72057, L500.4050, L100.0100, L501.9520 #### [facility] [address] [place], [address] BUN/CRE 35.4 RATIO High 10-20 [facility] Comment on above: Performed By: #### L 500.4100, L506.0400, L501.79913, L500.4050, L100.0100, L501.9520 #### [facility] [address] [place], [address] CA,Total 9.5 mg/dL Normal 8.5-10.1 [facility] Comment on above: Performed By: #### L 500.4100, L506.0400, L501.12439, L500.4050, L100.0100, L501.9520 #### [facility] [address] [place], [address] Chloride [Moles/Vol] 110 mmol/L High 98-107 [facility] Comment on above: Performed By: #### L 500.4100, L506.0400, L501.23260, L500.4050, L100.0100, L501.9520 #### [facility] [address] [place], [address] CO2 [Moles/Vol] 28.0 mmol/L Normal 21.0-32.0 [facility] Comment on above: Performed By: #### L 500.4100, L506.0400, L501.79649, L500.4050, L100.0100, L501.9520 #### [facility] [address] [place], [address] Creatinine [Mass/Vol] 0.74 mg/dL Normal 0.55-1.02 [facility] Comment on above: Result Comment: The validity of the calculated GFR GFRAA in patients over 70 years has not been determined. Clinical correlation is essential. Performed By: #### L 500.4100, L506.0400, L501.31079, L500.4050, L100.0100, L501.9520 #### [facility] [address] [place], [address] EST GFR - AA 101 mL/min Normal >60 [facility] Comment on above: Result Comment: Afri can Japanese GFR Calc Performed By: #### L 500.4100, L506.0400, L501.92924, L500.4050, L100.0100, L501.9520 #### [facility] [address] [place], [address] GAP 4 Low 5-15 [facility] Comment on above: Performed By: #### L 500.4100, L506.0400, L501.69119, L500.4050, L100.0100, L501.9520 #### [facility] [address] [place], [address] GFR/1.73 sq M.predicted among non-blacks MDRD (S/P/Bld) [Vol rate/Area] 83 mL/min/{1.73_m2} Normal >60 [facility] Comment on above: Result Comment: Non- GFR Calc Performed By: #### L 500.4100, L506.0400, L501.10377, L500.4050, L100.0100, L501.9520 #### [facility] [address] [place], [address] Globulin (S) [Mass/Vol] 3.4 g/dL Normal 2.2-4.2 [facility] Comment on above: Performed By: #### L 500.4100, L506.0400, L501.06332, L500.4050, L100.0100, L501.9520 #### [facility] [address] [place], [address] Glucose [Mass/Vol] 102 mg/dL Normal 74-106 [facility] Comment on above: Result Comment: Fast ing Glucose result from 100 to 125 mg/dL suggests IMPAIRED HOMEOSTASIS per A.D.A. criteria. Performed By: #### L 500.4100, L506.0400, L501.79688, L500.4050, L100.0100, L501.9520 #### [facility] [address] [place], [address] Potassium [Moles/Vol] 4.2 mmol/L Normal 3.5-5.1 [facility] Comment on above: Performed By: #### L 500.4100, L506.0400, L501.80862, L500.4050, L100.0100, L501.9520 #### [facility] [address] [place], [address] Sodium [Moles/Vol] 142 mmol/L Normal 136-145 [facility] Comment on above: Performed By: #### L 500.4100, L506.0400, L501.24179, L500.4050, L100.0100, L501.9520 #### [facility] [address] [place], [address] T PROT 7.1 g/dL Normal 6.4-8.2 [facility] Comment on above: Performed By: #### L 500.4100, L506.0400, L501.57175, L500.4050, L100.0100, L501.9520 #### [facility] [address] [place], [address] Urea nitrogen [Mass/Vol] 26 mg/dL High 7-18 [facility] Comment on above: Performed By: #### L 500.4100, L506.0400, L501.36981, L500.4050, L100.0100, L501.9520 #### [facility] [address] [place], [address] Free T3on 06-12-2024 Free T3 [Mass/Vol] 2.2 pg/mL Normal 2.18-3.98 [facility] Comment on above: Performed By: #### L 500.4100, L506.0400, L501.48777, L500.4050, L100.0100, L501.9520 #### [facility] [address] [place], [address] Lipid Profileon 06-12-2024 Cholesterol [Mass/Vol] 180 mg/dL Normal 200 [facility] Comment on above: Result Comment: <200 mg/dL Desirable 200-240 mg/dL Borderline >240 mg/dL High Risk Performed By: #### L 500.4100, L506.0400, L501.37857, L500.4050, L100.0100, L501.9520 #### [facility] [address] [place], [address] Cholesterol in HDL [Mass/Vol] 60 mg/dL Normal [facility] Comment on above: Result Comment: The drugs N-Acetylcysteine and Metamizole may falsely depress this assay. Reference Range HDL <40 mg/dL Low HDL Cholesterol HDL >or= 60 mg/dL High HDL Cholesterol Performed By: #### L 500.4100, L506.0400, L501.68551, L500.4050, L100.0100, L501.9520 #### [facility] [address] [place], [address] Cholesterol in LDL [Mass/Vol] 101 mg/dL Normal 0-130 [facility] Comment on above: Performed By: #### L 500.4100, L506.0400, L501.38739, L500.4050, L100.0100, L501.9520 #### [facility] [address] [place], [address] Cholesterol in VLDL [Mass/Vol] 19 mg/dL Normal 5-40 [facility] Comment on above: Performed By: #### L 500.4100, L506.0400, L501.08393, L500.4050, L100.0100, L501.9520 #### [facility] [address] [place], [address] Triglyceride [Mass/Vol] 93 mg/dL Normal [facility] Comment on above: Result Comment: The drugs N-Acetylcysteine and Metamizole may falsely depress this assay. Serum Triglycerides Reference Interval Normal <150 mg/dL Borderline high 150 - 199 mg/dL High 200 - 499 mg/dL Very High > or = 500 mg/dL Performed By: #### L 500.4100, L506.0400, L501.64122, L500.4050, L100.0100, L501.9520 #### [facility] [address] [place], [address] T4 Free Directon 06-12-2024 T4 FREE DIRECT 1.04 ng/dL Normal 0.76-1.46 [facility] Comment on above: Performed By: #### L 501.9520, L501.34759, L500.2500, L501.9310, L506.0400 #### [facility] [address] [place], [place], [address] Thyroid Stim Hormone (TSH)on 06-12-2024 TSH 2.220 uIU/mL Normal 0.358-3.740 [facility] Comment on above: Performed By: #### L 500.4100, L506.0400, L501.91212, L500.4050, L100.0100, L501.9520 #### [facility] [address] [place], [address] CNOVon 04-28-2024 CNOV Office Visit (AGOTAL ) CARINA HAM ([id number]) 1955 F Date Time Provider Department 04/28/24 11:15 AM GEORGIA BEDOYA During your visit today, we recorded the following information about you: Respiration Weight Height 18/minute 86.2 kg 1.676 m Georgia Bedoya DO 05/28/2024 10:25 AM Signed Patient presents with: Right Shoulder - Established Patient Carina Ham is a 68 year old female who presents for follow up right shoulder arthroscopy with rotator cuff repair, biceps tenodesis, and subacromial decompression on 01/01/2024. The patient is doing well. She denies any pain in her right shoulder. She does have some residual weakness. She is working on strengthening of the right shoulder through physical therapy. Reviewed nursing note and current pain scale. PAST MEDICAL HISTORY No date: Allergic rhinitis, cause unspecified Comment: Allergic rhinitis No date: Benign neoplasm of colon No date: Diverticulosis of colon (without mention of hemorrhage) No date: Exercise-induced asthma No date: Hypothyroidism No date: MTHFR mutation No date: Traumatic complete tear of right rotator cuff PAST SURGICAL HISTORY No date: APPENDECTOMY 06/12/2007: COLONOSCOPY FLX DX W/COLLJ SPEC WHEN PFRMD Comment: Colonoscopy No date: DILATION AND CURETTAGE DXAND/THER NONOBSTETRIC Comment: Dilation AND curettage 03/26/2022: LAPS SURG CHOLECYSTECTOMY W/CHOLANGIOGRAPHY Comment: using fluroscopy. Dr. Ynig No date: OOPHORECTOMY PARTIAL/TOTAL UNI/BI Comment: with the right remaining, but no tube 12/2016: THYROIDECTOMY SUBTOTAL/PARTIAL No date: TOTAL ABDOMINAL HYSTERECT W/WO RMVL TUBE OVARY Comment: Hysterectomy, [place]O FAMILY HISTORY Problem Relation Age of Onset Thyroid Mother graves disease Hypertension Father orthostatic and tia's other (Shy Drager) Father Breast Cancer Maternal Grandmother Breast Cancer Paternal Grandmother unsure Social History Tobacco Use Smoking status: Never Smokeless tobacco: Never Vaping Use Vaping Use: Never used Substance Use Topics Alcohol use: Yes Comment: wine with dinner at times Drug use: No Medications: Current Outpatient Medications Medication Sig L-METHYLFOLATE 15 mg tab Take by mouth once daily. calcium carbonate (CALCIUM 500) 500 mg calcium [...] puffs every four (4) hours as needed No current facility-administered medications for this visit. Allergies: ALLERGIES Allergen Reactions Molds [Other] Valdecoxib GI Upset, Diarrhea Physical Examination: Resp 18 Ht 5' 6" (1.68m) Wt 190 lb (86.2kg) BMI 30.68 kg/(m2). Physical exam: General: AANDO x 3; NAD. Cooperative throughout entire interview. Head: Atraumatic, normocephalic Neck: Trachea Midline Chest: Unlabored breathing Neuro: Grossly intact Right Shoulder Inspection: No malalignment, atrophy, erythema, swelling, warmth, or scapular winging. AC prominence normal Bony Palpation: No tenderness of the sternoclavicular joint,, the clavicle, the acromioclavicular joint, the greater tuberosity Soft tissue palpation: No tenderness to palpation of the lateral rotator cuff insertion, no tenderness to palpation of the subdeltoid bursa Active ROM Right Shoulder supine: Forward Flexion: 150 degrees Abduction: 90 degrees External Rotation at zero degrees of abduction: 50 degrees Internal rotation: Sacrum Active ROM Left Shoulder: Forward Flexion: 180 degrees Abduction: 180 degrees External Rotation at zero degrees of abduction: 60 degrees Internal rotation: L4 Special tests: Garza: negative Lift Off: negative Empty can: negative Strength Right Shoulder Deltoid: 5/5 Biceps: 5/5 Triceps 5/5 Supraspinatus 4/5 External rotation 4/5 Internal rotation 5/5 Assessment and Plan: 1. Traumatic complete tear of right rotator cuff, subsequent encounter - ICD9: V58.89, 840.4, ICD10: S46.011D (primary diagnosis) 2. S/P right rotator cuff repair - ICD9: V45.89, ICD10: Z98.890 The physical exam findings were discussed with the patient. The patient has full range of motion in forward elevation, external rotation while supine. She does still struggle with abduction. We discussed continuing physical therapy for strengthening of the rotator cuff. She is agreeable to this plan moving forward. I will see her back in 2 months for repeat evaluation. We discussed contacting the office with any questions, concerns, or (more content not included)... Normal [facility] ANES POSTPROC EVALon 024 ANES POSTPROC EVAL HNO ID: [id number] Author: SALLY COUCH DO Service: Anesthesiology Author Type: Physician Type: Anesthesia Postprocedure Evaluation Filed: 03/17/2024 14:48 Note Text: POST ANESTHESIA EVALUATION NOTE : 1955 Procedure Summary Date: 01/01/24 Room / Location: [place] [address] [place] [address] OR Anesthesia Start: 850 Anesthesia Stop: 1149 Procedures: ARTHROSCOPY SHOULDER ROTATOR CUFF (Right: Shoulder) ARTHROSCOPY SHOULDER BICEPS TENODESIS (Right: Shoulder) ARTHROSCOPY SHOULDER WITH SUBACROMIAL DECOMPRESSION (Right: Shoulder) Diagnosis: Traumatic complete tear of right rotator cuff, subsequent encounter Tendinopathy of right biceps tendon (Traumatic complete tear of right rotator cuff, subsequent encounter [S46.011D]) (Tendinopathy of right biceps tendon [M67.921]) Surgeons: Georgia Bedoya DO Responsible Provider: Sally Couch DO Anesthesia Type: general ASA Status: 3 Anesthesia Type: general Airway Type: anesthesia mask Last Vitals Vitals Value Taken Time BP 145/88 01/01/24 1315 Temp 36 ?C (96.8 ?F) 01/01/24 1230 HR SpO2 68 01/01/24 1315 Resp 16 01/01/24 1315 SpO2 95 % 01/01/24 1315 Post Anesthesia Patient Status Patient Evaluation: PACU. PACU/ICU Patient Condition: stable. Anticipated Disposition: phase 2 then home. Neurological Status: sleepy but arousable. Pulmonary Status: breathing comfortably on supplemental oxygen Airway Control: returned to baseline unsupported. Cardiovascular Status: stable. Pain Management: clinically adequate Postoperative Hydration: acceptable. Intraoperative Events: no significant anesthesia events Post Operative Nausea/Vomiting Status: no significant post operative nausea or vomiting Recommendation: continue current plan of care. Anesthesia Observations No Documentation SIGNATURE: Sally Couch DO PATIENT NAME: Carina Ham DATE: March 17, 2024 TIME: 2:41 PM CSN: [id number] Normal [facility] CNOVon 03-11-2024 CNOV Office Visit (AGHWW1 ) CARINA HAM ([id number]) 1955 F Date Time Provider Department 03/11/24 9:15 AM AURELIANO [place] AGHWW1 During your visit today, we recorded the following information about you: Respiration Weight Height 20/minute 88.5 kg 1.676 m Alex Bansal LPN 03/11/2024 1:57 PM Signed REVIEW OF SYSTEMS: GENERAL: Well developed, well nourished. No acute distress PAIN: Negative for pain, history of chronic pain or current treatment for chronic pain conditions and Pain right shoulder CARDIOVASCULAR: Negative for chest pain, leg swelling and palpations. MSK: Negative for joint swelling SKIN: Negative for lesions, rash, itching, metal sensitivity NEURO: Negative for seizure, trauma, numbness/tingling of extremities. ENDOCRINE: Negative for diabetic associated symptoms HEMATOLOGY: Negative for excessive bleeding, clots, bleeding disorders. Georgia Bedoya DO 03/11/2024 1:57 PM Signed Patient presents with: Right Shoulder - Post Op, Pain Carina Ham is a 68 year old female who presents for follow-up right shoulder arthroscopy with rotator cuff repair and biceps tenodesis on 01/01/2024. The patient has been attending physical therapy and working on active assisted range of motion of her right shoulder. She does not report any continued postoperative pain. She has been occasionally wearing her sling when out and about. Reviewed nursing note and current pain scale. PAST MEDICAL HISTORY Diagnosis Date Allergic rhinitis, cause unspecified Allergic rhinitis Benign neoplasm of colon Diverticulosis of colon (without mention of hemorrhage) Exercise-induced asthma Hypothyroidism MTHFR mutation Traumatic complete tear of right rotator cuff PAST SURGICAL HISTORY Procedure Laterality Date APPENDECTOMY COLONOSCOPY FLX DX W/COLLJ SPEC WHEN PFRMD 06/12/2007 Colonoscopy DILATION AND CURETTAGE DXAND/THER NONOBSTETRIC Dilation AND curettage LAPS SURG CHOLECYSTECTOMY W/CHOLANGIOGRAPHY 03/26/[address] Ying OOPHORECTOMY PARTIAL/TOTAL UNI/BI with the right remaining, but no tube THYROIDECTOMY SUBTOTAL/PARTIAL 12/2016 TOTAL ABDOMINAL HYSTERECT W/WO RMVL TUBE OVARY Hysterectomy, ALBERTO FAMILY HISTORY Problem Relation Age of Onset Thyroid Mother graves disease Hypertension Father orthostatic and tia's other (Shy Drager) Father Breast Cancer Maternal Grandmother Breast Cancer Paternal Grandmother unsure Social History Tobacco Use Smoking status: Never Smokeless tobacco: Never Vaping Use Vaping Use: Never used Substance Use Topics Alcohol use: Yes Comment: wine with dinner at times Drug use: No Medications: Current Outpatient Medications Medication Sig ibuprofen (MOTRIN) 800 mg tablet Take 1 tablet by mouth every 8 hours as needed for pain. acetaminophen (TYLENOL EXTRA STRENGTH) 500 mg tablet Take 2 tablets by mouth every 6 hours as needed for pain. L-METHYLFOLATE 15 mg tab Take by mouth once daily. calcium carbonate (CALCIUM 500) 500 mg calcium [...] puffs every four (4) hours as needed No current facility-administered medications for this visit. Allergies: ALLERGIES Allergen Reactions Molds [Other] Valdecoxib GI Upset, Diarrhea Physical Examination: Resp 20 Ht 5' 6" (1.68m) Wt 195 lb (88.5kg) BMI 31.49 kg/(m2). Physical exam: General: AANDO x 3; NAD. Cooperative throughout entire interview. Head: Atraumatic, normocephalic Neck: Supple Chest: Unlabored breathing Neuro: Grossly intact Right Shoulder Inspection: Incisions well healed Passive ROM Right Shoulder: Forward Flexion: 160 degrees Abduction: 110 degrees External Rotation at zero degrees of abduction: 50 degrees Internal rotation: 60 degrees Active range of motion Right elbow Flexion: 140 degrees Extension: 0 degrees Strength Right Shoulder Deltoid: 5/5 Biceps: 5/5 Triceps 5/5 AIN, PIN, ulnar, median, radial nerves intact Axillary and musculocutaneous nerves intact Radial pulse +2 / 4, palpable Distal extremity warm and well-perfused, capillary refill brisk Assessment and Plan: 1. Traumatic complete tear of right rotator cuff, subsequent encounter - ICD9: V58.89, 840.4, ICD10: S46.011D (primary diagnosis) 2. S/P right rotator cuff repair - ICD9: V45.89, ICD10: Z98.890 The physical exam findings were discussed with the patient. On assessment of the patient's passive range of mo (more content not included)... Normal [facility] CNOVon 02-05-2024 CN Office Visit (AGHWW1 ) CARINA HAM ([id number]) 1955 F Date Time Provider Department 02/05/24 8:45 AM GEORGIA BEDOYA HWW1 During your visit today, we recorded the following information about you: Temperature Weight Height 98.3 degrees 86.2 kg 1.676 m Ryan Pinto Tech 02/07/2024 2:55 PM Signed REVIEW OF SYSTEMS: GENERAL: Well developed, well nourished. No acute distress PAIN: Negative for pain, history of chronic pain or current treatment for chronic pain conditions CARDIOVASCULAR: Negative for chest pain, leg swelling and palpations. MSK: Negative for joint swelling SKIN: Negative for lesions, rash, itching, metal sensitivity NEURO: Negative for seizure, trauma, numbness/tingling of extremities. ENDOCRINE: Negative for diabetic associated symptoms HEMATOLOGY: Negative for excessive bleeding, clots, bleeding disorders. Georgia Bedoya DO 02/07/2024 2:55 PM Signed Patient presents with: Right Shoulder - Follow Up, Post Op Carina Ham is a 68 year old female who presents for follow-up right shoulder arthroscopy with rotator cuff repair, biceps tenodesis, subacromial decompression on 01/01/2024. The patient has been attending physical therapy once weekly and is working on passive range of motion of her right shoulder. She continues to sleep upright in an arm chair and is having difficulty laying flat. She has discontinued narcotic pain medication and occasionally takes ibuprofen and Tylenol as needed for discomfort. She denies any distal numbness or tingling. She denies any incisional problems including drainage or discharge from the incisions. Reviewed nursing note and current pain scale. PAST MEDICAL HISTORY Diagnosis Date Allergic rhinitis, cause unspecified Allergic rhinitis Benign neoplasm of colon Diverticulosis of colon (without mention of hemorrhage) Exercise-induced asthma Hypothyroidism MTHFR mutation Traumatic complete tear of right rotator cuff PAST SURGICAL HISTORY Procedure Laterality Date APPENDECTOMY COLONOSCOPY FLX DX W/COLLJ SPEC WHEN PFRMD 06/12/2007 Colonoscopy DILATION AND CURETTAGE DXAND/THER NONOBSTETRIC Dilation AND curettage LAPS SURG CHOLECYSTECTOMY W/CHOLANGIOGRAPHY 03/26/[address] Ying OOPHORECTOMY PARTIAL/TOTAL UNI/BI with the right remaining, but no tube THYROIDECTOMY SUBTOTAL/PARTIAL 12/2016 TOTAL ABDOMINAL HYSTERECT W/WO RMVL TUBE OVARY Hysterectomy, ALBERTO FAMILY HISTORY Problem Relation Age of Onset Thyroid Mother graves disease Hypertension Father orthostatic and tia's other (Shy Drager) Father Breast Cancer Maternal Grandmother Breast Cancer Paternal Grandmother unsure Social History Tobacco Use Smoking status: Never Smokeless tobacco: Never Vaping Use Vaping Use: Never used Substance Use Topics Alcohol use: Yes Comment: wine with dinner at times Drug use: No Medications: Current Outpatient Medications Medication Sig ibuprofen (MOTRIN) 800 mg tablet Take 1 tablet by mouth every 8 hours as needed for pain. acetaminophen (TYLENOL EXTRA STRENGTH) 500 mg tablet Take 2 tablets by mouth every 6 hours as needed for pain. L-METHYLFOLATE 15 mg tab Take by mouth once daily. calcium carbonate (CALCIUM 500) 500 mg calcium (1,250 mg) tablet Take 2 tablets by mouth once daily. levothyroxine 88 mcg cap Take 88 mcg by mouth daily before breakfast. montelukast (SINGULAIR) 10 mg tablet Take 10 mg by mouth daily at bedtime. loratadine (CLARITIN) 10 mg ORAL Tab Take one(1) tablet daily. As needed. THERAPEUTIC MULTIVITAMIN TAB Take one(1) tablet daily. mometasone furoate(NASONEX 50 MCG/ACTUATION SPRAY) 2 sprays each nostril daily ALBUTEROL 90 MCG/ACTUATION AEROSOL INHALER 2 puffs every four (4) hours as needed No current facility-administered medications for this visit. Allergies: ALLERGIES Allergen Reactions Molds [Other] Valdecoxib GI Upset, Diarrhea Physical Examination: Temp 98.3 Ht 5' 6" (1.68m) Wt 190 lb (86.2kg) BMI 30.68 kg/(m2). Right Shoulder Inspection: Incisions healing well. No erythema. No palpable fluctuance. Passive ROM Right Shoulder: Forward Flexion: 100 degrees Abduction: 80 degrees External Rotation at zero degrees of abduction: 20 degrees Active range of motion Right elbow Flexion: 140 degrees Extension: 0 degrees AIN, PIN, ulnar, median, radial nerves intact Axillary and musculocutaneous nerves intact Radial pulse +2 / 4, palpable Distal extremity warm and well-perfused, capillary refill brisk Assessment and Plan: 1. Traumatic complete tear of right rotator cuff, subsequent encounter - ICD9: V58.89, 840.4, ICD10: S46.011D (primary diagnosis) 2. S/P right rotator cuff repair - ICD9: V45.89, ICD10: Z98.890 The physical exam findings were discussed with the patient. I am able to forward elevate the patient to about 100 degrees to (more content not included)... Normal [facility] No Panel InformationOrdered By: La Melendez on 01-29-2024 Free Triiodothyronine (T3) pg/dL 2.3 pg/mL 2.18-3.98 [facility] Serum or plasma thyroid stim ulating hormone (TSH) measurement (units/volume)Ordered By: La Melendez on 01-29-2024 TSH Qn 0.85 uIU/mL 0.358-3.74 [facility] Thin prep Papanicolaou smear with manual screeningOrdered By: La Melendez on 01-29-2024 Thin prep Papanicolaou smear with manual screening 1.30 ng/dL 0.76-1.46 [facility] CNOVon 01-09-2024 CNOV Office Visit (AGHWN) CARINA HAM ([id number]) 1955 F Date Time Provider Department 01/09/24 8:45 AM [facility] During your visit today, we recorded the following information about you: Respiration Weight Height 18/minute 87.1 kg 1.676 m Georgia Bedoya DO 01/10/2024 2:02 PM Signed Patient presents with: Right Shoulder - Post Op Carina Ham is a 68 year old female who presents for follow-up right shoulder arthroscopy with rotator cuff repair, biceps tenodesis, and subacromial decompression. The patient is doing well at this time. She is taking oxycodone as needed and ibuprofen for pain control. She notes postoperative ecchymosis along her right upper extremity. She denies any fever or chills. She denies any drainage or discharge from the surgical sites. She has been compliant with nonweightbearing status of the right upper extremity. She has been wearing the sling for immobilization. Reviewed nursing note and current pain scale. PAST MEDICAL HISTORY Diagnosis Date Allergic rhinitis, cause unspecified Allergic rhinitis Benign neoplasm of colon Diverticulosis of colon (without mention of hemorrhage) Exercise-induced asthma Hypothyroidism MTHFR mutation Traumatic complete tear of right rotator cuff PAST SURGICAL HISTORY Procedure Laterality Date APPENDECTOMY COLONOSCOPY FLX DX W/COLLJ SPEC WHEN PFRMD 06/12/2007 Colonoscopy DILATION AND CURETTAGE DXAND/THER NONOBSTETRIC Dilation AND curettage LAPS SURG CHOLECYSTECTOMY W/CHOLANGIOGRAPHY 03/26/[address] Ying OOPHORECTOMY PARTIAL/TOTAL UNI/BI with the right remaining, but no tube THYROIDECTOMY SUBTOTAL/PARTIAL 12/2016 TOTAL ABDOMINAL HYSTERECT W/WO RMVL TUBE OVARY Hysterectomy, ALBERTO FAMILY HISTORY Problem Relation Age of Onset Thyroid Mother graves disease Hypertension Father orthostatic and tia's other (Nilam Umanzor) Father Breast Cancer Maternal Grandmother Breast Cancer Paternal Grandmother unsure Social History Tobacco Use Smoking status: Never Smokeless tobacco: Never Vaping Use Vaping Use: Never used Substance Use Topics Alcohol use: Yes Comment: wine with dinner at times Drug use: No Medications: Current Outpatient Medications Medication Sig ibuprofen (MOTRIN) 800 mg tablet Take 1 tablet by mouth every 8 hours as needed for pain. acetaminophen (TYLENOL EXTRA STRENGTH) 500 mg tablet Take 2 tablets by mouth every 6 hours as needed for pain. L-METHYLFOLATE 15 mg tab Take by mouth once daily. calcium carbonate (CALCIUM 500) 500 mg calcium (1,250 mg) tablet Take 2 tablets by mouth once daily. levothyroxine 88 mcg cap Take 88 mcg by mouth daily before breakfast. montelukast (SINGULAIR) 10 mg tablet Take 10 mg by mouth daily at bedtime. loratadine (CLARITIN) 10 mg ORAL Tab Take one(1) tablet daily. As needed. THERAPEUTIC MULTIVITAMIN TAB Take one(1) tablet daily. mometasone furoate(NASONEX 50 MCG/ACTUATION SPRAY) 2 sprays each nostril daily ALBUTEROL 90 MCG/ACTUATION AEROSOL INHALER 2 puffs every four (4) hours as needed No current facility-administered medications for this visit. Allergies: ALLERGIES Allergen Reactions Molds [Other] Valdecoxib GI Upset, Diarrhea Physical Examination: Resp 18 Ht 5' 6" (1.68m) Wt 192 lb (87.1kg) BMI 31.00 kg/(m2). Right Shoulder Inspection: Incisions healing well. Sutures removed today and Steri-Strips placed. Appropriate postoperative ecchymosis and swelling present. No drainage or discharge from the surgical sites. No erythema. No palpable fluctuance. Passive ROM Right Shoulder: Forward Flexion: 60 degrees Abduction: 45 degrees External Rotation at zero degrees of abduction: 20 degrees Passive range of motion Right elbow Flexion: 90 Extension: 0 Strength Right Shoulder: Not assessed secondary to recent surgery AIN, PIN, ulnar, median, radial nerves intact Axillary and musculocutaneous nerves intact Radial pulse +2 / 4, palpable Distal extremity warm and well-perfused, capillary refill brisk Assessment and Plan: 1. Traumatic complete tear of right rotator cuff, subsequent encounter - ICD9: V58.89, 840.4, ICD10: S46.011D The physical exam and intraoperative imaging findings were discussed with the patient today. The patient sutures were removed in office and Steri-Strips applied. Overall, the patient is doing very well at this time. She was provided with an updated prescription for physical therapy and will start physical therapy in 1 week. I encouraged her to contact my office with any questions or concerns moving forward. We reviewed my rehab protocol in detail. The patient is attending physical therapy through [facility] in [place] and I encouraged her to contact me if any issues arise or if the therapist is having difficulty obtaining my rehab protocol. I will see the pat (more content not included)... Normal [facility] ANES PRE-OPon 01-01-2024 ANES PRE-OP HNO ID: [id number] Author: SALLY COUCH DO Service: Anesthesiology Author Type: Physician Type: Anesthesia Preprocedure Evaluation Filed: 01/01/2024 09:42 Note Text: ANESTHESIOLOGY DAY OF SURGERY NOTE : 1955 Procedure Information Anesthesia Start Date/Time: 01/01/24 0851 Procedures: ARTHROSCOPY SHOULDER ROTATOR CUFF (Right: Shoulder) - general with regional block ARTHROSCOPY SHOULDER BICEPS TENODESIS (Right: Shoulder) ARTHROSCOPY SHOULDER WITH SUBACROMIAL DECOMPRESSION (Right: Shoulder) Location: [place] [address] [place] [address] OR Surgeons: Georgia Bedoya DO Estimated body mass index is 31.09 kg/m? as calculated from the following: Height as of 12/19/23: 167.6 cm (5' 6"). Weight as of 12/19/23: 87.4 kg (192 lb 9.6 oz). Most recent hematocrit and potassium results: Hematocrit 42.4 12/19/2023 Potassium 4.9 12/19/2023 Relevant Problems CARDIO (+) Internal hemorrhoids without mention of complication ENDO (+) Hypothyroidism PULMONARY (+) Asthma I - PHYSICAL EVALUATION AIRWAY Patient intubated: No. Tracheostomy tube not present Mallampati: II. TM distance: >3 FB. Neck ROM: full ROM without neurological symptoms. Mouth opening: adequate. Short neck: no. Thick neck: no DENTAL Dental findings: teeth intact. Additional exam findings: no II - ANESTHESIA PLAN ASA Score: 3 Anesthetic Plan: general and regional Airway type: ETT The patient is not a current smoker. NPO Status: adequate Anesthetic plan additional comments: Dicussed and agreed to interscalene block. Beta Sunil Monitoring Plan Monitoring plan: standard ASA. Post Procedure Analgesic Plan Postoperative analgesic plan: multimodal analgesia and parenteral or oral opioids. Patient / Surrogate agrees to blood products: blood products not planned Significant changes in the patient condition since the History and Physical, not otherwise documented in primary service progress note: no. Potential Anesthesia issues that may suggest increased risk of complications or contraindication to planned procedure: none. Vitals Value Taken Time BP 132/79 01/01/24 0724 Pulse 66 01/01/24 0843 Resp 18 01/01/24 0724 Temp 36.2 ?C (97.2 ?F) 01/01/24 0724 SpO2 99 % 01/01/24 0845 Vitals shown include unfiled device data. Facility-Administered Medications as of 01/01/2024 Medication Dose Route Frequency - lactated ringers iv infusion 5-30 mL/hr INTRAVENOUS CONTINUOUS - lidocaine 10 mg/mL (1 %) 1-2 mg injection (XYLOCAINE) 1-2 mg INTRADERMAL ONCE Outpatient Medications as of 01/01/2024 Medication Sig - calcium carbonate (CALCIUM 500) 500 mg calcium (1,250 mg) tablet Take 2 tablets by mouth once daily. - levothyroxine 88 mcg cap Take 88 mcg by mouth daily before breakfast. - montelukast (SINGULAIR) 10 mg tablet Take 10 mg by mouth daily at bedtime. - mometasone furoate(NASONEX 50 MCG/ACTUATION SPRAY) 2 sprays each nostril daily - loratadine (CLARITIN) 10 mg ORAL Tab Take one(1) tablet daily. As needed. - ALBUTEROL 90 MCG/ACTUATION AEROSOL INHALER 2 puffs every four (4) hours as needed - ibuprofen (MOTRIN) 600 mg tablet Take 1 tablet by mouth every 6 hours as needed for pain. - THERAPEUTIC MULTIVITAMIN TAB Take one(1) tablet daily. I have interviewed and examined the patient. I have reviewed the medical record and/or the pre-anesthesia evaluation, pertinent labs, and test results. This contains updated information obtained within 48 hours of Surgery/Procedure. SIGNATURE: Sally Couch DO PATIENT NAME: Carina Ham DATE: January 01, 2024 TIME: 9:34 AM CSN: [id number] [facility] BRIEF OP NOTon 01-01-2024 BRIEF OP NOT HNO ID: [id number] Author: GEORGIA BEDOYA DO Service: Orthopaedic Surgery Author Type: Physician Type: Brief Op Note Filed: 01/01/2024 12:26 Note Text: BRIEF OPERATIVE / PROCEDURE NOTE LOG ID: [id number] SURGERY/PROCEDURE DATE: 01/01/2024 INCISION/PROCEDURE START TIME: 9:33 AM INCISION CLOSE/PROCEDURE END TIME: 11:36 AM SURGEON(S)/PROCEDURALIS T(S) AND FANS CLERK(S): Surgeon(s) and Role: * Georgia Bedoya DO - Primary * Varghese Mahmood MD - Resident - Assisting Meat Team Member: Jesse Castle (), SURGERY/PROCEDURE(S): Right shoulder arthroscopy with rotator cuff repair, biceps tenodesis, subacromial decompression ANESTHESIA: General FINDINGS: Massive, 2 tendon, retracted right rotator cuff tear, superior labral tear with intratendinous biceps tendinopathy ESTIMATED BLOOD LOSS: 5 mls SPECIMENS: None COMPLICATIONS: None IMPLANTS: Implant Name Type Inv. Item Serial No. Assembler Dc Field Yoke Lot No. LRB No. Used Action ANCHOR CORKSCREW SUTURETAPE 5.5MM FULL THREAD 1.3MM BLACK BLUE WHITE - [id number] Vilonia ANCHOR CORKSCREW SUTURETAPE 5.5MM FULL THREAD 1.3MM BLACK BLUE WHITE [employer] [id number] Right 1 Implanted ANCHOR CORKSCREW SUTURETAPE 5.5MM FULL THREAD 1.3MM BLACK BLUE WHITE - [id number] Vilonia ANCHOR CORKSCREW SUTURETAPE 5.5MM FULL THREAD 1.3MM BLACK BLUE WHITE [employer] [id number] Right 1 Implanted ANCHR SUT 4.75MM 2 FIBERTAK - [id number] Vilonia ANCHR SUT 4.75MM 2 [employer]IBERT[employer] [id number] Right 1 Implanted ANCHR SUT 4.75MM 2 FIBERTAK - [id number] Vilonia ANCHR SUT 4.75MM 2 [employer]IBERTAK [employer] [id number] Right 1 Implanted CLOSURE TECHNIQUE: Primary PRE-OP/PRE-PROCEDURE DIAGNOSIS: Right shoulder rotator cuff tear, superior labral tear, biceps tendinopathy POST-OP/POST-PROCEDURE DIAGNOSIS: Same as Preop SIGNATURE: Georgia Bedoya DO PATIENT NAME: Carina Ham DATE: January 01, 2024 TIME: 12:25 PM Normal [facility] OPERATIVE NOon 01-01-2024 OPERATIVE NO HNO ID: [id number] Author: GEORGIA BEDOYA DO Service: Orthopaedic Surgery Author Type: Physician Type: Operative Report Filed: 01/01/2024 13:05 Note Text: PATIENT NAME: Carina Ham LOG ID: [id number] SURGERY/PROCEDURE DATE: 01/01/2024 INCISION/PROCEDURE START TIME: 9:33 AM INCISION CLOSE/PROCEDURE END TIME: 11:36 AM SURGEON(S)/PROCEDURALIS T(S) AND FANS CLERK(S): Surgeon(s) and Role: * Georgia Bedoya DO - Primary * Varghese Mahmood MD - Resident - Assisting Meat Team Member: Jesse Castle (), PRE-OPERATIVE DIAGNOSIS: Right shoulder complete, retracted 2 tendon rotator cuff tear, superior labral tear with biceps tendinopathy POST-OPERATIVE DIAGNOSIS: Same SURGERY/PROCEDURE(S): Right shoulder arthroscopy Rotator cuff repair Biceps tenodesis Subacromial decompression ANESTHESIA: General ANTIBIOTICS: 2 g IV Ancef BLOOD LOSS: 5 cc COMPLICATIONS: None IMPLANTS: Arthrex 5.5 mm corkscrew anchor double loaded x 2, Arthrex 4.75 mm swivel lock anchor x 2 INDICATIONS: This is a 68 year old female who presented to my office as an outpatient after sustaining an injury to her right shoulder in October 2023. The patient slipped and fell in October 2023 injuring her right shoulder. The patient had an acute decrease in range of motion and strength of her right shoulder following this injury. The patient underwent a home rehabilitation program without significant improvement in her pain or range of motion. An MRI of the right shoulder was obtained which demonstrated a large, retracted rotator cuff tear involving the supraspinatus and infraspinatus and a superior labral tear. I discussed both nonoperative and operative treatment options with the patient. We discussed corticosteroid injections, NSAIDs, and therapist guided physical therapy. We also discussed operative treatment with right shoulder arthroscopy, rotator cuff repair, biceps tenodesis, and subacromial decompression. We discussed the risks of surgery including: Infection, bleeding, neurovascular injury, postoperative stiffness, DVT or thromboembolic event, risk associated with anesthesia, failure of the rotator cuff tendon to heal, retear of the rotator cuff, need for future procedure or surgery. After thorough discussion of the risks, benefits, and alternatives to surgery, the patient elected to proceed with the surgical intervention. DETAILS OF PROCEDURE: I met with the patient in the preoperative holding area and their right shoulder was marked. A safety huddle was performed in accordance with [facility] General policy. The patient was taken to the operating room and placed supine on the operating room table. They were provided with successful anesthesia per the anesthesia department. The extremity was then cleansed with hydrogen peroxide, alcohol and a chlorhexidine solution. The extremity was then prepped with a ChloraPrep solution and draped in the normal orthopedic fashion. A timeout was performed identifying the correct patient, procedure to be performed, as well as laterality. All present were in unanimous agreement. The bony landmarks of the patient's shoulder were marked out with a sterile marking pen. A posterior stab incision was created with a #11 blade and the arthroscope was inserted into the glenohumeral joint. The patient had some mild cartilage changes to the humeral head and glenoid, grade 1. The patient had some degenerative fraying of her anterior labrum. A superior labral tear was immediately apparent. Intratendinous tearing oriented longitudinally was present in the long head of the biceps. The axillary pouch was entered and no loose bodies were identified. An anterior portal was established and a canula inserted. A probe was used to probe the biceps anchor confirming tearing of the superior labrum. The biceps tendon was inspected and found to have longitudinal tearing and fraying of the tendon. The tendon was pierced with a Fiberloop suture and released from its anchor with electrocautery. A mapping pilot hole was created at the level of the bicipital groove proximally. The sutures of the long head of the biceps were threaded through a 4.75mm Arthrex Swivelock anchor and the anchor was placed into the mapping pilot hole. The tenodesis was appropriately tensioned. The superior and anterior labrum were gently debrided. No subscapularis tear was identified. The arthroscope was then withdrawn from the glenohumeral joint and placed into the subacromial space. A massive, retracted crescent shape tear was immediately apparent involving the supraspinatus and infraspinatus. A lateral portal was established. A tissue grasper was used to grasp the rotator cuff tendon which was retracted to the level of the glenoid. The tissue grasper was used to demonstrate mobility of the rotator cuff tendon which was able to be mobilized to the level of the greater tuberosity. Two Arthrex Cor (more content not included)... Normal [facility] CNPNon 12-31-2023 ANGELN Telephone (AGOTAL) CARINA HAM ([id number]) 1955 F Date Time Provider Department 12/31/23 GEORGAI BEDOYA During your visit today, we recorded the following information about you: Lynette Amato 12/31/2023 9:31 AM Signed Call to patient to confirm Date,Time and Location for surgery scheduled. Date: 01/01/2024 Arrival time:6:30am for 8:30am surgery, [facility] DME: none Supervisor Pyrotechnic Loading: confirmed DME: confirmed Allergies As of Date: 12/31/2023 Noted Allergy Reaction molds [Other] 01/03/2006 VALDECOXIB 10/22/2005 8 - GI Upset 6 - Diarrhea Date Reviewed: 12/19/2023 Reviewed by: Georgia Jones APRN.DOCTOR OF VETERINARY MEDICINE - Fully Assessed Reason for Visit: Preparations For Surgery [898] Prescriptions as of 12/31/2023 - L-METHYLFOLATE 15 mg tab Take by mouth once daily. - ibuprofen (MOTRIN) 600 mg tablet Take 1 tablet by mouth every 6 hours as needed for pain. - calcium carbonate (CALCIUM 500) 500 mg calcium (1,250 mg) tablet Take 2 tablets by mouth once daily. - levothyroxine 88 mcg cap Take 88 mcg by mouth daily before breakfast. - montelukast (SINGULAIR) 10 mg tablet Take 10 mg by mouth daily at bedtime. - mometasone furoate(NASONEX 50 MCG/ACTUATION SPRAY) 2 sprays each nostril daily - loratadine (CLARITIN) 10 mg ORAL Tab Take one(1) tablet daily. As needed. - THERAPEUTIC MULTIVITAMIN TAB Take one(1) tablet daily. - ALBUTEROL 90 MCG/ACTUATION AEROSOL INHALER 2 puffs every four (4) hours as needed Problem List As Of Date 12/31/2023 Noted Resolved ALLERGIC RHINITIS NOS [J30.9] Asthma [J45.909] BENIGN NEOPLASM LG BOWEL [D12.6] 06/12/2007 GASTROINTEST HEMORR NOS [K92.2] 06/12/2007 INT HEMORRHOID W/O COMPL [K64.8] 06/12/2007 DIVERTICULOSIS OF COLON W/O BLEED [K57.30] 06/12/2007 Bilateral low back pain without sciatica [M54.5*02/15/2022 05/17/2022 Acute cholecystitis [K81.0] 03/27/2022 04/17/2022 Pre-op examination [Z01.818] 12/13/2023 Traumatic complete tear of right rotator cuff [*12/13/2023 Tendinopathy of right biceps tendon [M67.921] 12/13/2023 Hypothyroidism [E03.9] 12/19/2023 MTHFR mutation [Z15.89] 12/19/2023 Encounter Status:Closed by LYNETTE AMATO on 12/31/23 Normal [facility] Basic metabolic 2000 panelon 12-19-2023 Anion gap [Moles/Vol] 9 mmol/L 9 - 18 mmol/L [facility] Calcium [Mass/Vol] 9.9 mg/dL 8.5 - 10. 2 mg/dL [facility] Chloride [Moles/Vol] 104 mmol/L 97 - 10 5 mmol/L [facility] CO2 [Moles/Vol] 27 mmol/L 22 - 30 mmol/L [facility] Creatinine [Mass/Vol] 0.75 mg/dL 0.58 - 0.96 mg/dL [facility] Estimated Glomerular Filtration Rate 87 mL/min/1.73m >=60 mL/min/1.73m [facility] Glucose [Mass/Vol] 95 mg/dL 74 - 99 mg/dL [facility] Potassium [Moles/Vol] 4.9 mmol/L 3.7 - 5.1 mmol/L [facility] Sodium [Moles/Vol] 140 mmol/L 136 - 144 mmol/L [facility] Urea nitrogen [Mass/Vol] 21 mg/dL 7 - 21 mg/dL [facility] Anion gap [Moles/Vol] 9 mmol/L Normal 9-18 [facility] Comment on above: Order Comment: Speci men Type: BLOOD SPECIMENOrdering Facility: [facility] Address: [address] [place] [address] Performed By: #### 2 4321-2 ####[facility]ORATORYCLIA [id number] [place] [address] [place] Calcium [Mass/Vol] 9.9 mg/dL Normal 8.5-10.2 [facility] Comment on above: Order Comment: Speci men Type: BLOOD SPECIMENOrdering Facility: [facility] Address: [address] [place] [address] Performed By: #### 2 4321-2 ####[facility] LABORATORYCLIA [id number] [place] [address] [place] Chloride [Moles/Vol] 104 mmol/L Normal 97-105 [facility] Comment on above: Order Comment: Speci men Type: BLOOD SPECIMENOrdering Facility: [facility] Address: [address] [place] [address] Performed By: #### 2 4321-2 ####[facility] LABORATORYCLIA [id number] [place] [address] [place] CO2 [Moles/Vol] 27 mmol/L Normal 22-30 [facility] Comment on above: Order Comment: Speci men Type: BLOOD SPECIMENOrdering Facility: [facility] Address: [address] [place] [address] Performed By: #### 2 4321-2 ####[facility]ORATORYCLIA [id number] [place] [address] [place] Creatinine [Mass/Vol] 0.75 mg/dL Normal 0.58-0.96 [facility] Comment on above: Order Comment: Speci men Type: BLOOD SPECIMENOrdering Facility: [facility] Address: [address] [place] [address] Performed By: #### 2 4321-2 ####[facility]ATORYCLIA [id number] [place] [address] [place] Creatinine and Glomerular filtration rate.predicted panel (S/P/Bld) 87 mL/min/1.73m??? Normal >=60 [facility] Comment on above: Order Comment: Specruddy hicks Type: BLOOD SPECIMENOrdering Facility: [facility] Address: [address] [place] [address] Result Comment: Melanie mated Glomerular Filtration Rate (eGFR) is calculated using the 2020 CKD-EPI creatinine equation. This equation utilizes serum creatinine, sex, and age as parameters. The creatinine assay has traceable calibration to isotope dilution-mass spectrometry. Refer to KDIGO guidelines for clinical interpretation. In patients with unstable renal function, e.g. those with acute kidney injury, the eGFR may not accurately reflect actual GFR. Performed By: #### 2 4321-2 ####[facility]ORATORYCLIA [id number] [place] [address] [place] Glucose [Mass/Vol] 95 mg/dL Normal 74-99 [facility] Comment on above: Order Comment: Wilfredo hicks Type: BLOOD SPECIMENOrdering Facility: [facility] Address: [address] [place] [address] Result Comment: The [place] Diabetes Association (ADA) provides guidance for cutoff values for fasting glucose and random glucose. The ADA defines fasting as no caloric intake for at least 8 hours. Fasting plasma glucose results between 100 to 125 mg/dL indicate increased risk for diabetes (prediabetes). Fasting plasma glucose results greater than or equal to 126 mg/dL meet the criteria for diagnosis of diabetes. In the absence of unequivocal hyperglycemia, results should be confirmed by repeat testing. In a patient with classic symptoms of hyperglycemia or hyperglycemic crisis, random plasma glucose results greater than or equal to 200 mg/dL meet the criteria for diagnosis of diabetes. Reference: Standards of Medical Care in Diabetes 2016, [place] Diabetes Association. Diabetes Care. 2016.39(Suppl 1). Performed By: #### 2 4321-2 ####[facility]ORATORYCLIA [id number] [place] [id number] [place] Potassium [Moles/Vol] 4.9 mmol/L Normal 3.7-5.1 [facility] Comment on above: Order Comment: Speci men Type: BLOOD SPECIMENOrdering Facility: [facility] Address: [address] [place] [address] Performed By: #### 2 4321-2 ####[facility]ORATORYCLIA [id number] [address] [facility] Sodium [Moles/Vol] 140 mmol/L Normal 136-144 [facility] Comment on above: Order Comment: Speci men Type: BLOOD SPECIMENOrdering Facility: [facility] Address: [address] [place] [address] Performed By: #### 2 4321-2 ####[facility]ORATORYCLIA [id number] [address] [place] [facility] Urea nitrogen [Mass/Vol] 21 mg/dL Normal 7-21 [facility] Comment on above: Order Comment: Speci men Type: BLOOD SPECIMENOrdering Facility: [facility] Address: [address] [place] [address] Performed By: #### 2 4321-2 ####[facility]ORATORYCLIA [id number] [address] [place] [facility] CBC panel Auto (Bld)on 12-18 Erythrocyte distribution width (RBC) [Ratio] 12.0 % 11.5 - 15.0 % [facility] Hematocrit (Bld) [Volume fraction] 42.4 % 36.0 - 46.0 % [facility] Hemoglobin (Bld) [Mass/Vol] 14.2 g/dL 11.5 - 15.5 g/dL [facility] MCH (RBC) [Entitic mass] 31.2 pg 26.0 - 34.0 pg [facility] MCHC (RBC) [Mass/Vol] 33.5 g/dL 30.5 - 36.0 g/dL [facility] MCV (RBC) [Entitic vol] 93.2 fL 80.0 - 100.0 fL [facility] Nucleated RBC (Bld) [#/Vol] <0.01 k/uL [facility] Platelet mean volume (Bld) [Entitic vol] 11.4 fL 9.0 - 12.7 fL [facility] Platelets (Bld) [#/Vol] 252 10*3/uL 150 - 400 k/uL [facility] RBC (Bld) [#/Vol] 4.55 10*6/uL 3.90 - 5.2 0 m/uL [facility] WBC (Bld) [#/Vol] 6.07 10*3/uL 3.70 - 11. 00 k/uL [facility] Erythrocyte distribution width (RBC) [Ratio] 12.0 % Normal 11.5-15.0 [facility] Comment on above: Order Comment: Speci men Type: BLOOD SPECIMENOrdering Facility: [facility] Address: [address] [place] [address] Performed By: #### 5 8410-2 ####[facility]ORATORYCLIA [id number] [address] [place] [facility] Hematocrit (Bld) [Volume fraction] 42.4 % Normal 36.0-46.0 [facility] Comment on above: Order Comment: Speci men Type: BLOOD SPECIMENOrdering Facility: [facility] Address: [address] [place] [address] Performed By: #### 5 8410-2 ####[facility]ORATORYCLIA [id number] [address] [place] [facility] Hemoglobin (Bld) [Mass/Vol] 14.2 g/dL Normal 11.5-15.5 [facility] Comment on above: Order Comment: Speci men Type: BLOOD SPECIMENOrdering Facility: [facility] Address: [address] [place] [address] Performed By: #### 5 8410-2 ####[facility]ATORYCLIA [id number] [address] [place] MCH (RBC) [Entitic mass] 31.2 pg Normal 26.0-34.0 [facility] Comment on above: Order Comment: Speci men Type: BLOOD SPECIMENOrdering Facility: [facility] Address: [address] [place] [address] Performed By: #### 5 8410-2 ####[facility]ATORYCLIA [id number] [address] [place] [facility] MCHC (RBC) [Mass/Vol] 33.5 g/dL Normal 30.5-36.0 [facility] Comment on above: Order Comment: Speci men Type: BLOOD SPECIMENOrdering Facility: [facility] Address: [address] [place] [address] Performed By: #### 5 8410-2 ####[facility]ATORYCLIA [id number] [address] [place] MCV (RBC) [Entitic vol] 93.2 fL Normal 80.0-100.0 [facility] Comment on above: Order Comment: Speci men Type: BLOOD SPECIMENOrdering Facility: [facility] Address: [address] [place] [address] Performed By: #### 5 8410-2 ####[facility]ATORYCLIA [id number] [address] Nucleated RBC (Bld) [#/Vol] 10*3/uL Normal <0.01 [facility] Comment on above: Order Comment: Speci men Type: BLOOD SPECIMENOrdering Facility: [facility] Address: [address] [place] [address] Performed By: #### 5 8410-2 ####[facility]ORYCLIA [id number] [address] [place] Platelet mean volume (Bld) [Entitic vol] 11.4 fL Normal 9.0-12.7 [facility] Comment on above: Order Comment: Speci men Type: BLOOD SPECIMENOrdering Facility: [facility] Address: [address] [place] [address] Performed By: #### 5 8410-2 ####[facility]ORYCLIA [id number] [address] [place] Platelets (Bld) [#/Vol] 252 10*3/uL Normal 150-400 [facility] Comment on above: Order Comment: Speci men Type: BLOOD SPECIMENOrdering Facility: [facility] Address: [address] [place] [address] Performed By: #### 5 8410-2 ####[facility]ATORYCLIA [id number] [address] RBC (Bld) [#/Vol] 4.55 10*6/uL Normal 3.90-5.20 [facility] Comment on above: Order Comment: Speci men Type: BLOOD SPECIMENOrdering Facility: [facility] Address: [address] [place] [address] Performed By: #### 5 8410-2 ####[facility]ORYCLIA [id number] [address] WBC (Bld) [#/Vol] 6.07 10*3/uL Normal 3.70-11.00 [facility] Comment on above: Order Comment: Speci men Type: BLOOD SPECIMENOrdering Facility: [facility] Address: [address] [place] [address] Performed By: #### 5 8410-2 ####[facility]ATORYCLIA [id number] [address] HISTORY PHYSICALon HISTORY PHYSICAL HNO ID: [id number] Author: GEORGIA JONES APRN.DOCTOR OF VETERINARY MEDICINE Service: ? Author Type: Nurse Practitioner Type: H&P Filed: 12/19/2023 09:55 Note Text: HISTORY AND PHYSICAL EXAMINATION SERVICE DATE: 12/19/2023 SERVICE TIME: 9:20 AM PRIMARY CARE PHYSICIAN: La Melendez MD Assessment Patient has the following medical conditions which may affect sherice-operative course: Pre-op examination see note for medical conditions which may affect sherice-operative course that were addressed at today's visit. Traumatic complete tear of right rotator cuff Surgery scheduled 01/01/24. Tendinopathy of right biceps tendon Surgery scheduled 01/01/24. Asthma Albuterol. Patient uses rescue inhaler one- two times a year at altitude depending on travel. Denies hospitalization in the last year due to respiratory issues. Instructed to use inhaler as prescribed and to bring inhaler to surgery. Hypothyroidism Levothyroxine. Instructed to take morning of surgery. TSH 1.54 01/22/23. MTHFR mutation Patient had own genetic testing done. She reports she treats on her own. L-methylfolate. Instructed to stop 7 days prior to surgery. Denies any history of DVT/PE. Pereira Activity Status Index: METS: Climb a flight of stairs or walk up a hill (5.50 METs) DASI Score: 5.5 Patient denies any chest pain or undue shortness of breath with the above physical activity. ARISCAT Score: Age: 51-80 Preoperative SpO2: >=96% Preoperative anemia: Yes Surgical incision: peripheral Duration of surgery: >3 hrs Emergency procedure: No ARISCAT Score: ANESTHESIA FINDINGS: Intubation History: No history of difficult intubation. No abnormal airway history Significant Anesthesia Considerations: none Airway History: No history of difficult airway No abnormal airway history I - PHYSICAL EVALUATION AIRWAY Patient intubated: No. DENTAL Dental findings: teeth intact. Additional comments: + crowns. II - ANESTHESIA PLAN Anesthetic Plan: general Beta Sunil Monitoring Plan Post Procedure Analgesic Plan Prepared for Surgery: CONSULTS: The following consults have been initiated at this time: primary care/internal medicine (scheduled). Planned Anesthetic: general The Following Tests/Procedures Have Been Initiated: No orders entered in Epic per surgeon. BMP and CBC ordered in PAT per CASSIUS. REASON FOR VISIT: Carina Ham is a 68 year old female who is scheduled for Procedure(s) with comments: ARTHROSCOPY SHOULDER ROTATOR CUFF (Right) - general with regional block ARTHROSCOPY SHOULDER BICEPS TENODESIS (Right) ARTHROSCOPY SHOULDER WITH SUBACROMIAL DECOMPRESSION (Right) at the request of Dr. Georgia Bedoya for routine HANDP. My final recommendation will be communicated back to the requesting physician by way of shared medical record or letter. Subjective The patient has the following: ACTIVE PROBLEM LIST Allergic Rhinitis, Cause Unspecified Asthma Benign Neoplasm of Colon Hemorrhage of Gastrointestinal Tract, Unspecified Internal Hemorrhoids Without Mention of Complication Diverticulosis of Colon (Without Mention of Hemorrhage) Pre-Op Examination Traumatic Complete Tear of Right Rotator Cuff Tendinopathy of Right Biceps Tendon Hypothyroidism Mthfr Mutation COVID-19 Immunization Status Covid-19 Vaccine (Series Information) Completed 07/17/2023 Imm Admin: COVID-19 vaccine, age 12+ yr, season (Estoreify) 06/25/2022 Imm Admin: COVID-19 vaccine, age 12+ yr, bivalent (MODERNA) 02/19/2022 Imm Admin: COVID-19 original vaccine, full dose, monovalent (MODERNA) Only the first 3 history entries have been loaded, but more history exists. CHIEF COMPLAINT: The reason for this visit is to perform a comprehensive review of the patients past medical history, assess their current health status and obtain any additional testing required based on anesthesia guidelines. To assess and identify potential anesthesia problems, particularly those that may suggest potential complications or contraindications to the planned procedure. HPI: Patient is a 68 year old female who presents for presurgical testing. Patient has a history of right shoulder pain. She reports sustaining an injury to the shoulder after a fall in October 2023. She reports an increase in weakness and pain. She reports a decrease in range of motion and strength. MRI was performed. Denies any pain at PAT visit. Denies any numbness. Endorses some slight tingling over the past couple of days. Denies any recent fever or chills. Patient denies any other problems or concerns at this time. Risks and benefits of the procedure discussed by Surgeon and patient agreed to proceed with planned procedure. REVIEW OF SYSTEMS: General: Negative for: weight loss >10% of BW in last 6 months, malaise and fever. Neurological: Negative for: seizures and strokes. Respiratory: Positive for: asthma. Negative for: COPD, p (more content not included)... Normal [facility] CNCOon 11-26-2023 CNCO Letter Text Normal [facility] CNOVon 11-22-2023 CNOV Office Visit (AGHWN) CARINA HAM ([id number]) 1955 F Date Time Provider Department 11/22/23 9:15 AM GEORGIA BEDOYAJAZMIN During your visit today, we recorded the following information about you: Respiration Weight Height 18/minute 87.1 kg 1.676 m Georgia Bedoya, 11/25/2023 8:27 AM Signed Patient presents with: Right Shoulder - Established Patient Carina Ham is a 68 year old female who presents for follow-up right shoulder MRI. The patient initially sustained an injury to her right shoulder in late October 2023. The patient is right-hand dominant. She slipped and fell about 3 weeks ago injuring her right shoulder. She has had an acute decrease in her range of motion and strength of her right shoulder following this injury. She denies shoulder pain or weakness prior to this injury. She denies any numbness or tingling in her distal right upper extremity. At our last visit, the patient was provided with a home rehab program for her right shoulder and has had improvement in abduction and internal rotation. She notes that she is still struggling with forward elevation and external rotation. Reviewed nursing note and current pain scale. PAST MEDICAL HISTORY Diagnosis Date Allergic rhinitis, cause unspecified Allergic rhinitis Benign neoplasm of colon Diverticulosis of colon (without mention of hemorrhage) Exercise-induced asthma Hypothyroidism PAST SURGICAL HISTORY Procedure Laterality Date APPENDECTOMY COLONOSCOPY FLX DX W/COLLJ SPEC WHEN PFRMD 06/12/2007 Colonoscopy DILATION AND CURETTAGE DXAND/THER NONOBSTETRIC Dilation AND curettage LAPS SURG CHOLECYSTECTOMY W/CHOLANGIOGRAPHY 03/26/[address] Ying OOPHORECTOMY PARTIAL/TOTAL UNI/BI with the right remaining, but no tube THYROIDECTOMY SUBTOTAL/PARTIAL 12/2016 TOTAL ABDOMINAL HYSTERECT W/WO RMVL TUBE OVARY Hysterectomy, ALBERTO FAMILY HISTORY Problem Relation Age of Onset Thyroid Mother graves disease Hypertension Father orthostatic and tia's other (Shy Drager) Father Breast Cancer Maternal Grandmother Breast Cancer Paternal Grandmother unsure Social History Tobacco Use Smoking status: Never Smokeless tobacco: Never Substance Use Topics Alcohol use: Yes Comment: wine with dinner at times Drug use: No Medications: Current Outpatient Medications Medication Sig ibuprofen (MOTRIN) 600 mg tablet Take 1 tablet by mouth every 6 hours as needed for pain. calcium carbonate (CALCIUM 500) 500 mg calcium (1,250 mg) tablet Take 2 tablets by mouth once daily. levothyroxine 88 mcg cap Take 88 mcg by mouth daily before breakfast. loratadine (CLARITIN) 10 mg ORAL Tab Take one(1) tablet daily. As needed. THERAPEUTIC MULTIVITAMIN TAB Take one(1) tablet daily. ALBUTEROL 90 MCG/ACTUATION AEROSOL INHALER 2 puffs every four (4) hours as needed montelukast (SINGULAIR) 10 mg tablet Take 10 mg by mouth daily at bedtime. mometasone furoate(NASONEX 50 MCG/ACTUATION SPRAY) 2 sprays each nostril daily No current facility-administered medications for this visit. Allergies: ALLERGIES Allergen Reactions Bextra [Valdecoxib] GI Upset Molds [Other] Physical Examination: Resp 18 Ht 5' 6" (1.68m) Wt 192 lb (87.1kg) BMI 31.00 kg/(m2). Right Shoulder Inspection: No malalignment, atrophy, erythema, swelling, warmth, or scapular winging. AC prominence normal Bony Palpation: No tenderness of the sternoclavicular joint,, the clavicle, the acromioclavicular joint, the greater tuberosity, tenderness to palpation of the bicipital groove Soft tissue palpation: Tenderness to palpation of the lateral rotator cuff insertion, tenderness to palpation of the subdeltoid bursa Active ROM Right Shoulder: Forward Flexion: 30 degrees Abduction: 140 degrees External Rotation at zero degrees of abduction: 20 degrees Internal rotation: Sacrum Active ROM Left Shoulder: Forward Flexion: 180 degrees Abduction: 180 degrees External Rotation at zero degrees of abduction: 50 degrees Internal rotation: T7 Passive ROM Right Shoulder: Forward elevation: 180 degrees Abduction: 180 degrees Special tests: Garza: positive Lift Off: negative Empty can: positive Strength Right Shoulder Deltoid: 5/5 Biceps: 5/5 Triceps 5/5 Supraspinatus 3/5 External rotation 3/5 Internal rotation 5/5 Images: MRI Right Shoulder Physician Interpretation: Full-thickness retracted tear of the supraspinatus. Distal tendon stump is visible on the supraspinatus insertion, greater tuberosity. Superior migration of the humeral head. Partial-thickness tear of the infraspinatus. Partial-thickness tear of the subscapularis. Assessment and Plan: 1. Traumatic complete tear of right rotator cuff, subsequent encounter - ICD9: V58.89, 840.4, ICD10: S46.011D The physical exam and MRI findings were discussed with (more content not included)... Normal [facility] MR Shoulder - right WO contr tristan 11-13-2023 IMPRESSION: 1. Full-thickness, retracted tear of the distal supraspinatus tendon. 2. Full-thickness, age indeterminate, slightly retracted tear of the distal subscapularis tendon with edema and ill definition extending towards the myotendinous junction. 3. Severe tendinosis and interstitial partial tearing throughout the mid and distal subscapularis tendon. 4. Severe tendinosis and interstitial partial tearing of the proximal biceps tendon. 5. 6 mm loose body adjacent to the biceps tendon. 6. Mild degenerative changes at the acromioclavicular and glenohumeral joints. 7. Moderate subacromial/subdeltoid fluid. 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 MQ: MRS_1A COMPARISON: Radiograph 11/12/2023 RESULT: TENDONS: Rotator cuff tendons: -Supraspinatus: Full-thickness tear of the distal tendon, retracted to the humeral apex. -Infraspinatus: Full-thickness, slightly retracted tear of the distal tendon. There is ill-definition and edema continuing towards the myotendinous junction. Fluid surrounds the muscle. -Subscapularis: There is severe diffuse tendinosis along with extensive interstitial partial tearing throughout the mid and distal tendon. -Teres Minor: Intact tendon Biceps (Long head) Tendon: Severe tendinosis and diffuse interstitial partial tearing throughout the intra-articular and proximal portions of the tendon. There does appear to be a normal course. MUSCLES: Rotator cuff muscles: -Supraspinatus: Mild atrophy and no fatty changes. -Infraspinatus: Mild atrophy and no fatty changes. -Subscapularis: Preserved bulk and no fatty changes. -Teres Minor: Mild atrophy and mild fatty changes. Other muscles: Preserved signal and bulk in the deltoid. JOINTS: Glenohumeral Joint: -Labrum: Degeneration without discrete tear -Cartilage: Minimal cartilage loss/fissuring -Joint Fluid: Moderate effusion . Mild synovitis. Acromioclavicular Joint: Mild to moderate hypertrophic degenerative changes BONES AND MARROW: No evidence of fracture or suspicious bone marrow replacing process OTHER: Subdeltoid/Subacromial Bursa: Moderate bursal distention Other: 6 mm loose body within the proximal intertubercular region, adjacent to the biceps tendon. Localizer images: No additional findings. [facility] Provider, [facility] - 11/13/2023 * * *Final Report* * * DATE OF EXAM: Nov 13 2023 11:16AM IRA [id number] - MRI SHOULDER WO IVCON RT / PROCEDURE REASON: Traumatic complete tear of right rotator cuff, initial encounter * * * * Physician Interpretation * * * * EXAMINATION: MRI SHOULDER WO IVCON RT HISTORY: Recent fall, right shoulder pain TECHNIQUE: Routine non-contrast MRI of the shoulder. MQ: MRS_1A COMPARISON: Radiograph 11/12/2023 RESULT: TENDONS: Rotator cuff tendons: -Supraspinatus: Full-thickness tear of the distal tendon, retracted to the humeral apex. -Infraspinatus: Full-thickness, slightly retracted tear of the distal tendon. There is ill-definition and edema continuing towards the myotendinous junction. Fluid surrounds the muscle. -Subscapularis: There is severe diffuse tendinosis along with extensive interstitial partial tearing throughout the mid and distal tendon. -Teres Minor: Intact tendon Biceps (Long head) Tendon: Severe tendinosis and diffuse interstitial partial tearing throughout the intra-articular and proximal portions of the tendon. There does appear to be a normal course. MUSCLES: Rotator cuff muscles: -Supraspinatus: Mild atrophy and no fatty changes. -Infraspinatus: Mild atrophy and no fatty changes. -Subscapularis: Preserved bulk and no fatty changes. -Teres Minor: Mild atrophy and mild fatty changes. Other muscles: Preserved signal and bulk in the deltoid. JOINTS: Glenohumeral Joint: -Labrum: Degeneration without discrete tear -Cartilage: Minimal cartilage loss/fissuring -Joint Fluid: Moderate effusion . Mild synovitis. Acromioclavicular Joint: Mild to moderate hypertrophic degenerative changes BONES AND MARROW: No evidence of fracture or suspicious bone marrow replacing process OTHER: Subdeltoid/Subacromial Bursa: Moderate bursal distention Other: 6 mm loose body within the proximal intertubercular region, adjacent to the biceps tendon. Localizer images: No additional findings. IMPRESSION IMPRESSION: 1. Full-thickness, retracted tear of the distal supraspinatus tendon. 2. Full-thickness, age indeterminate, slightly retracted tear of the distal subscapularis tendon with edema and ill definition extending towards the myotendinous junction. 3. Severe tendinosis and interstitial partial tearing throughout the mid and distal subscapularis tendon. 4. Severe tendinosis and interstitial partial tearing of the proximal biceps tendon. 5. 6 mm loose body adjacent to the biceps tendon. 6. Mild degenerative changes at the acromioclavicular and glenohumeral joints. 7. Moderate subacromial/subdeltoid fluid. 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 Date/Time: Nov 13 2023 11:16A Dictated by : MARIE RANKIN MD This examination was interpreted and the report reviewed and electronically signed by: MARIE RNAKIN MD on Nov 13 2023 11:27AM EST [facility] Radiology Study observation (narrative) [facility] MR Shoulder - right WO contr astOrdered By: [facility] Provider on 11-13-2023 [facility] MRI SHOULDER WO IVCON RTon 0 11-13-2023 MRI SHOULDER WO IVCON RT * * *Final Report* * * DATE OF EXAM: Nov 13 2023 11:16AM IRA [id number] - MRI SHOULDER WO IVCON RT / PROCEDURE REASON: Traumatic complete tear of right rotator cuff, initial encounter * * * * Physician Interpretation * * * * EXAMINATION: MRI SHOULDER WO IVCON RT HISTORY: Recent fall, right shoulder pain TECHNIQUE: Routine non-contrast MRI of the shoulder. MQ: MRS_1A COMPARISON: Radiograph 11/12/2023 RESULT: TENDONS: Rotator cuff tendons: -Supraspinatus: Full-thickness tear of the distal tendon, retracted to the humeral apex. -Infraspinatus: Full-thickness, slightly retracted tear of the distal tendon. There is ill-definition and edema continuing towards the myotendinous junction. Fluid surrounds the muscle. -Subscapularis: There is severe diffuse tendinosis along with extensive interstitial partial tearing throughout the mid and distal tendon. -Teres Minor: Intact tendon Biceps (Long head) Tendon: Severe tendinosis and diffuse interstitial partial tearing throughout the intra-articular and proximal portions of the tendon. There does appear to be a normal course. MUSCLES: Rotator cuff muscles: -Supraspinatus: Mild atrophy and no fatty changes. -Infraspinatus: Mild atrophy and no fatty changes. -Subscapularis: Preserved bulk and no fatty changes. -Teres Minor: Mild atrophy and mild fatty changes. Other muscles: Preserved signal and bulk in the deltoid. JOINTS: Glenohumeral Joint: -Labrum: Degeneration without discrete tear -Cartilage: Minimal cartilage loss/fissuring -Joint Fluid: Moderate effusion . Mild synovitis. Acromioclavicular Joint: Mild to moderate hypertrophic degenerative changes BONES AND MARROW: No evidence of fracture or suspicious bone marrow replacing process OTHER: Subdeltoid/Subacromial Bursa: Moderate bursal distention Other: 6 mm loose body within the proximal intertubercular region, adjacent to the biceps tendon. Localizer images: No additional findings. IMPRESSION: 1. Full-thickness, retracted tear of the distal supraspinatus tendon. 2. Full-thickness, age indeterminate, slightly retracted tear of the distal subscapularis tendon with edema and ill definition extending towards the myotendinous junction. 3. Severe tendinosis and interstitial partial tearing throughout the mid and distal subscapularis tendon. 4. Severe tendinosis and interstitial partial tearing of the proximal biceps tendon. 5. 6 mm loose body adjacent to the biceps tendon. 6. Mild degenerative changes at the acromioclavicular and glenohumeral joints. 7. Moderate subacromial/subdeltoid fluid. 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 Date/Time: Nov 13 2023 11:16A Dictated by : MARIE RANKIN MD This examination was interpreted and the report reviewed and electronically signed by: MARIE RANKIN MD on Nov 13 2023 11:27AM EST [id number] Normal [facility] CNOVon 11-12-2023 CNOV Office Visit (AGOTAL ) CARINA HAM ([id number]) 1955 F Date Time Provider Department 11/12/23 8:30 AM GEORGIA BEDOYA During your visit today, we recorded the following information about you: Respiration Weight Height 18/minute 86.2 kg 1.676 m eGorgia Bedoya DO 11/13/2023 9:33 AM Signed Patient presents with: Right Shoulder - Cipriano Ham is a 68 year old female who presents for right shoulder pain and weakness. The patient lives in [facility]. She is accompanied by her today. She is right-hand dominant. The patient states that she slipped and fell about 9 days ago injuring her right shoulder. Since that time, she has noticed acute decrease in range of motion and strength of her right shoulder. She denies any history of shoulder issues prior to her injury. 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 He denies any distal numbness and tingling in her right upper extremity. Reviewed nursing note and current pain scale. PAST MEDICAL HISTORY Diagnosis Date Allergic rhinitis, cause unspecified Allergic rhinitis Benign neoplasm of colon Diverticulosis of colon (without mention of hemorrhage) Exercise-induced asthma Hypothyroidism PAST SURGICAL HISTORY Procedure Laterality Date APPENDECTOMY COLONOSCOPY FLX DX W/COLLJ SPEC WHEN PFRMD 06/12/2007 Colonoscopy DILATION AND CURETTAGE DXAND/THER NONOBSTETRIC Dilation AND curettage LAPS SURG CHOLECYSTECTOMY W/CHOLANGIOGRAPHY 03/26/[address] Ying OOPHORECTOMY PARTIAL/TOTAL UNI/BI with the right remaining, but no tube THYROIDECTOMY SUBTOTAL/PARTIAL 12/2016 TOTAL ABDOMINAL HYSTERECT W/WO RMVL TUBE OVARY Hysterectomy, ALBERTO FAMILY HISTORY Problem Relation Age of Onset Thyroid Mother graves disease Hypertension Father orthostatic and tia's other (Nilam Umanzor) Father Breast Cancer Maternal Grandmother Breast Cancer Paternal Grandmother unsure Social History Tobacco Use Smoking status: Never Smokeless tobacco: Never Substance Use Topics Alcohol use: Yes Comment: wine with dinner at times Drug use: No Medications: Current Outpatient Medications Medication Sig ibuprofen (MOTRIN) 600 mg tablet Take 1 tablet by mouth every 6 hours as needed for pain. calcium carbonate (CALCIUM 500) 500 mg calcium (1,250 mg) tablet Take 2 tablets by mouth once daily. levothyroxine 88 mcg cap Take 88 mcg by mouth daily before breakfast. mometasone furoate(NASONEX 50 MCG/ACTUATION SPRAY) 2 sprays each nostril daily loratadine (CLARITIN) 10 mg ORAL Tab Take one(1) tablet daily. As needed. THERAPEUTIC MULTIVITAMIN TAB Take one(1) tablet daily. ALBUTEROL 90 MCG/ACTUATION AEROSOL INHALER 2 puffs every four (4) hours as needed montelukast (SINGULAIR) 10 mg tablet Take 10 mg by mouth daily at bedtime. No current facility-administered medications for this visit. Allergies: ALLERGIES Allergen Reactions Bextra [Valdecoxib] GI Upset Molds [Other] Physical Examination: Resp 18 Ht 5' 6" (1.68m) Wt 190 lb (86.2kg) BMI 30.68 kg/(m2). Right Shoulder Inspection: No malalignment, atrophy, erythema, swelling, warmth, or scapular winging. AC prominence normal Bony Palpation: No tenderness of the sternoclavicular joint, the clavicle, the acromioclavicular joint, the greater tuberosity Soft tissue palpation: Tenderness to palpation of the lateral rotator cuff insertion, tenderness to palpation of the subdeltoid bursa Active ROM Right Shoulder: Forward Flexion: 30 degrees Abduction: 45 degrees External Rotation at zero degrees of abduction: 20 degrees Internal rotation: Sacrum Active ROM Left Shoulder: Forward Flexion: 180 degrees Abduction: 180 degrees External Rotation at zero degrees of abduction: 50 degrees Internal rotation: L4 Passive ROM Right Shoulder Forward elevation: 180 degrees Abduction: 180 degrees Special tests: Garza: positive Lift Off: negative Empty can: positive Strength right Shoulder Deltoid: 5/5 Biceps: 5/5 Triceps 5/5 Supraspinatus 3/5 External rotation 3/5 Internal rotation 5/5 Images: XR Right shoulder, AP, Axillary, Y view demonstrates: No acute fracture or dislocation. Minimal osteophyte present along the inferior humeral head without significant degenerative changes of the glenohumeral joint. Assessment and Plan: 1. Traumatic complete tear of right rotator cuff, initial encounter - ICD9: 840.4, ICD10: S46.011A (primary diagnosis) 2. Right shoulder pain, unspecified chronicity - ICD9: 719.41, ICD10: M25.511 The physical exam and imaging findings were discussed with the patient today. The patient has an acutely reduced range of motion of her right shoulder following a slip and fall 9 days ago. She is able to forward elevate to 30 degrees and abduct to about 45 degrees. We discussed (more content not included)... Normal [facility] XR SHLDR >/=3V AP/REILLY AP/OTH R RTon 11-12-2023 XR SHLDR >/=3V AP/REILLY AP/OTHR RT * * *Final Report* * * * * * SEE BOTTOM OF REPORT FOR ADDENDED TEXT * * * DATE OF EXAM: Nov 12 2023 8:32AM ATX [id number] - XR SHLDR >/=3V AP/REILLY AP/OTHR RT / PROCEDURE REASON: Right shoulder pain, unspecified chronicity * * * * Physician Interpretation * * * * * * * * * * * * ORIGINAL REPORT * * * * * * * * RIGHT SHOULDER, AP, GRASHEY AND AXILLARY: CLINICAL INDICATION: Right shoulder pain and limited range of motion following recent mechanical fall. COMPARISON: None. Glenohumeral articulation is maintained. No acute glenohumeral fracture. Acromioclavicular articulation is maintained. IMPRESSION: No acute osseous abnormality. * * * * * * * * ADDENDUM #1 * * * * * * * * Cluster of surgical clips right lower neck. 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[facility] Transcribe Date/Time: Nov 12 2023 3:57P Dictated by : LIZ SIMPSON MD This examination was interpreted and the report reviewed and electronically signed by: LIZ SIMPSON MD on Nov 12 2023 3:32PM EST This document has been addended by: LIZ SIMPSON MD on Nov 12 2023 3:57PM EST [id number] Normal [facility] XR Shoulder - right 3 Viewso n 11-12-2023 Addendum by Provider , [facility] on 11/12/2023 3:59 PM EST * * *Final Report* * * * * * SEE BOTTOM OF REPORT FOR ADDENDED TEXT * * * DATE OF EXAM: Nov 12 2023 8:32AM ATX [id number] - XR SHLDR >/=3V AP/REILLY AP/OTHR RT / PROCEDURE REASON: Right shoulder pain, unspecified chronicity * * * * Physician Interpretation * * * * * * * * * * * * ORIGINAL REPORT * * * * * * * * RIGHT SHOULDER, AP, GRASHEY AND AXILLARY: CLINICAL INDICATION: Right shoulder pain and limited range of motion following recent mechanical fall. COMPARISON: None. Glenohumeral articulation is maintained. No acute glenohumeral fracture. Acromioclavicular articulation is maintained. IMPRESSION: No acute osseous abnormality. * * * * * * * * ADDENDUM #1 * * * * * * * * Cluster of surgical clips right lower neck. 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[employer] Transcribe Date/Time: Nov 12 2023 3:57P Dictated by : LIZ SIMPSON MD This examination was interpreted and the report reviewed and electronically signed by: LIZ SIMPSON MD on Nov 12 2023 3:32PM EST This document has been addended by: LIZ SIMPSON MD on Nov 12 2023 3:57PM EST [facility] Radiology Study observation (narrative) [facility] XR Shoulder - right 3 ViewsO rdered By: Arturo Provider on 11-12-2023 [facility] Andriy 11-11-2023 SHANNON Telephone (AGOTAL) CARINA HAM ([id number]) 1955 F Date Time Provider Department 11/11/23 AL MCDANIEL During your visit today, we recorded the following information about you: Lynette Amato 11/11/2023 10:31 AM Signed ----- Message from Heather Becca sent at 11/11/2023 8:37 AM EST ----- Regarding: Orthopedics / Open Shoulder: Pain / Recent ED Visit Subject Line Format: Orthopedics / [Provider Name or "Open AND Body Part"] / [Issue] Patient has been identified by name and Date of (Y/N): Yes Patient: Carina Ham Date of : 1955 Previous Provider Seen: open Body Part(s) Identified: Right shoulder Diagnosis/Reason For Visit: Pain Reason for the call/escalation: The pt called to make an appt with Dr.H Bedoya for the right shoulder pain. The pt was seen in the ER on 11/03 and was told to follow up with ortho if conditions did not improve. The pt think it may be a possible rotator cuff injury. Please be sure to follow up with the pt on this matter. If reason for call/escalation is discharge from ED/ER or Hospital, which facility was the patient seen at: na Was an appointment scheduled (Y/N): no Person calling if other than patient: pt Return call to if other than patient: pt Best contact number: [phone] Thank you, Heather Hudson November 11, 2023 8:37 AM Lynette Amato 11/11/2023 10:33 AM Signed Left message with direct extension, attempt to make ED follow up as requested in encounter. Lynette Amato 11/11/2023 11:01 AM Signed Patient seen at [facility] on 11/03 for her shoulder. Possible RCT. Appointment made and any records scanned by PCP printed for Dr Bedoya to review. Allergies As of Date: 11/11/2023 Noted Allergy Reaction BEXTRA (VALDECOXIB) 10/22/2005 8 - GI Upset molds [Other] 01/03/2006 Date Reviewed: 04/17/2022 Reviewed by: Reema Austin Ma - Fully Assessed Reason for Visit: Appointment [186] Prescriptions as of 11/11/2023 - ibuprofen (MOTRIN) 600 mg tablet Take 1 tablet by mouth every 6 hours as needed for pain. - calcium carbonate (CALCIUM 500) 500 mg calcium (1,250 mg) tablet Take 2 tablets by mouth once daily. - levothyroxine 88 mcg cap Take 88 mcg by mouth daily before breakfast. - montelukast (SINGULAIR) 10 mg tablet Take 10 mg by mouth daily at bedtime. - mometasone furoate(NASONEX 50 MCG/ACTUATION SPRAY) 2 sprays each nostril daily - loratadine (CLARITIN) 10 mg ORAL Tab Take one(1) tablet daily. As needed. - THERAPEUTIC MULTIVITAMIN TAB Take one(1) tablet daily. - ALBUTEROL 90 MCG/ACTUATION AEROSOL INHALER 2 puffs every four (4) hours as needed Problem List As Of Date 11/11/2023 Noted Resolved ALLERGIC RHINITIS NOS [J30.9] ASTHMA UNSPECIFIED [J45.909] BENIGN NEOPLASM LG BOWEL [D12.6] 06/12/2007 GASTROINTEST HEMORR NOS [K92.2] 06/12/2007 INT HEMORRHOID W/O COMPL [K64.8] 06/12/2007 DIVERTICULOSIS OF COLON W/O BLEED [K57.30] 06/12/2007 Bilateral low back pain without sciatica [M54.5*02/15/2022 05/17/2022 Acute cholecystitis [K81.0] 03/27/2022 04/17/2022 Encounter Status:Closed by LYNETTE AMATO on 11/11/23 [facility] Absolute lymphocyte countOrd ered By: La Melendez on 07-23-2023 Lymphocytes Auto (Unsp spec) [#/Vol] 1.97 10*3/uL 0.83-4.51 [facility] Basophil percentageOrdered B y: La Melendez on 07-23-2023 Basophils/100 WBC (Bld) 0.9 % 0-1 [facility] Bilirubin [Mass/Vol] 0.40 mg/dL 0.20-1.00 [facility] Comment on above: For patients on eltr ombopag therapy, use of Dimension [place] TBIL is not recommended. Chloride [Moles/Vol] 110 mmol/L 98-107 [facility] Cholesterol [Mass/Vol] 186 mg/dL <200 [facility] Comment on above: <200 mg/dL Desirable 200-240 mg/dL Borderline >240 mg/dL High Risk Eosinophils/100 WBC (Bld) 4.7 % 0-5 [facility] Glucose [Mass/Vol] 102 mg/dL 74-106 [facility] Comment on above: Fasting Glucose resu lt from 100 to 125 mg/dL suggests IMPAIRED HOMEOSTASIS per A.D.A. criteria. Neutrophils (Bld) [#/Vol] 2.6 10*3/uL 2.0-7.7 [facility] Neutrophils/100 WBC (Bld) 48.4 % 47-70 [facility] Potassium [Moles/Vol] 4.2 mmol/L 3.5-5.1 [facility] Protein [Mass/Vol] 7.4 g/dL 6.4-8.2 [facility] Sodium [Moles/Vol] 142 mmol/L 136-145 [facility] Triglyceride [Mass/Vol] 90 mg/dL <199 [facility] Comment on above: The drugs N-Acetylcy steine and Metamizole may falsely depress this assay.Serum Triglycerides Reference Interval Normal <150 mg/dL Borderline high 150 - 199 mg/dL High 200 - 499 mg/dL Very High > or = 500 mg/dL WBC (Bld) [#/Vol] 5.3 10*3/uL 4.4-11.0 [facility] Blood erythrocytes count (nu mber/volume)Ordered By: La Melendez on 07-23-2023 RBC (Bld) [#/Vol] 4.64 10*6/uL 4.2-5.4 [facility] Blood hemoglobin measurement (mass/volume)Ordered By: La Melendez on 07-23-2023 Hemoglobin (Bld) [Mass/Vol] 14.4 g/dL 12.0-15.0 [facility] Blood lymphocytes/100 leukoc ytesOrdered By: La Melendez on 07-23-2023 Lymphocytes/100 WBC (Bld) 37.0 % 19-41 [facility] Blood monocytes/100 leukocyt esOrdered By: La Melendez on 07-23-2023 Monocytes/100 WBC (Bld) 8.8 % 0-10 [facility] Blood platelet mean volumeOr dered By: La Melendez on 07-23-2023 Platelet mean volume (Bld) [Entitic vol] 10.4 fL 6.2-12.0 [facility] Determination of erythrocyte mean corpuscular volume (MCV)Ordered By: La Melendez on 07-23-2023 MCV (RBC) [Entitic vol] 94.8 fL 81-99 [facility] Hematocrit Auto (Bld) [Volum e fraction]Ordered By: La Melendez on 07-23-2023 Hematocrit (Bld) [Volume fraction] 44.0 % 37-47 [facility] Laboratory - Chemistry and C hemistry - challengeOrdered By: La Melendez on 07-23-2023 ALP [Catalytic activity/Vol] 62 U/L 45-117 [facility] ALT [Catalytic activity/Vol] 56 U/L 13-56 [facility] CO2 [Moles/Vol] 28.0 mmol/L 21.0-32.0 [facility] Free T4 [Mass/Vol] 1.21 ng/dL 0.76-1.46 [facility] Globulin (S) [Mass/Vol] 3.7 g/dL 2.2-4.2 [facility] Urea nitrogen/Creatinine [Mass ratio] 25.9 mg/mg 10-20 [facility] Laboratory - Hematology and Cell countsOrdered By: La Melendez on 07-23-2023 Erythrocyte distribution width (RBC) [Entitic vol] 42.1 fL 35.1-43.9 [facility] Erythrocyte distribution width (RBC) [Ratio] 12.2 % 11.6-14.6 [facility] Immature granulocytes/100 WBC (Bld) 0.200 % 0.0-0.9 [facility] Comment on above: IG% - Immature Granu locytes (promyelocytes, myelocytes and metamyelocytes) > 1% indicates that a LEFT SHIFT is Present. MCH (RBC) [Entitic mass] 31.0 pg 27.0-32.0 [facility] Nucleated RBC/100 WBC (Bld) [Ratio] 0 % 0-5 [facility] MCHC Auto (RBC) [Mass/Vol]Or dered By: La Melendez on 07-23-2023 MCHC (RBC) [Mass/Vol] 32.7 g/dL 32-36 [facility] No Panel InformationOrdered By: La Melendez on 07-23-2023 Estimated GFR (MDRD) Amer 102 mL/min >60 [facility] Comment on above: GFR Calc Estimated GFR (MDRD) Non-Af Amer 84 mL/min >60 [facility] Comment on above: Non- GFR Calc Free Triiodothyronine (T3) pg/dL 2.5 pg/mL 2.18-3.98 [facility] Thyroid Stimulating Hormone (TSH) 1.52 uIU/mL 0.358-3.74 [facility] Platelets bldOrdered By: Rio Melendez on 07-23-2023 Platelets (Bld) [#/Vol] 264 10*3/uL 150-450 [facility] Serum or plasma albumin shy urement (mass/volume)Ordered By: La Melendez on 07-23-2023 Albumin [Mass/Vol] 3.7 g/dL 3.2-5.0 [facility] Serum or plasma albumin/glob ulin mass ratioOrdered By: La Melendez on 07-23-2023 Albumin/Globulin [Mass ratio] 1.0 {ratio} 0.9-2.4 [facility] Serum or plasma calcium shy urement (mass/volume)Ordered By: La Melendez on 07-23-2023 Calcium [Mass/Vol] 9.2 mg/dL 8.5-10.1 [facility] Serum or plasma cholesterol in HDL measurement (mass/volume)Ordered By: La Melendez on 07-23-2023 Cholesterol in HDL [Mass/Vol] 57 mg/dL >40 [facility] Comment on above: The drugs N-Acetylcy steine and Metamizole may falsely depress this assay. Reference Range HDL <40 mg/dL Low HDL Cholesterol HDL >or= 60 mg/dL High HDL Cholesterol Serum or plasma cholesterol in VLDL measurement (mass/volume)Ordered By: La Melendez on 07-23-2023 Cholesterol in VLDL [Mass/Vol] 18 mg/dL 5-40 [facility] Serum or plasma creatinine m easurement (mass/volume)Ordered By: La Melendez on 07-23-2023 Creatinine [Mass/Vol] 0.73 mg/dL 0.55-1.02 [facility] Comment on above: The validity of the calculated GFR & GFRAA in patients over 70 years has not been determined. Clinical correlation is essential. Serum or plasma low density lipoprotein (LDL) cholesterol measurement (mass/volume)Ordered By: La Melendez on 07-23-2023 Cholesterol in LDL [Mass/Vol] 111 mg/dL 0-130 [facility] Serum or plasma urea nitroge n measurement (mass/volume)Ordered By: La Melendez on 07-23-2023 Urea nitrogen [Mass/Vol] 19 mg/dL 7-18 [facility] Thin prep Papanicolaou smear with manual screeningOrdered By: La Melendez on 07-23-2023 Thin prep Papanicolaou smear with manual screening 23 U/L 15-37 [facility] Thin prep Papanicolaou smear with manual screening 4 5-15 [facility] Xray Bone Density, Dexa 1 or More Siteson 08-24-2022 DXA Bone [Mass/Area] Bone density FINAL REPORT Interpreted by: JACKY ALBERTO MD 08/28/22 08:26 Name: CARINA HAM Date: 1955 Height: 66.0 in. Gender: Female Exam Date: 08/24/2022 Weight: 185.0 lbs. Indications: postmenopause Fractur [facility] Work Phone: Office Visit (Internal Medic ine)on 08-10-2022 Follow-up visit Diagnoses/Problems Assessed Encounter for immunization (V03.89) (Z23) Hypothyroidism, postsurgical (244.0) (E89.0) Orders Encounter for immunization Administered: Prevnar 20 0.5 ML Intramuscular Suspension Prefilled Syringe For: Encounter for immunization; Ordered By:Quoc Mckinney; Effective Date:10Aug2022; Administered by: Vesna Vicente: 08/10/2022 2:02:00 PM; Last Updated By: Vesna Vicente; 08/10/2022 2:02:41 PM Hypothyroidism, postsurgical, Thyroid nodule Renew: Levothyroxine Sodium 88 MCG Oral Tablet; Take 1 tablet daily Rx By: Quoc Mckinney; Dispense: 90 Days ; #:90 Tablet; Refill: 3; For: Hypothyroidism, postsurgical, Thyroid nodule; GLENYS = N; Verified Transmission to [employer] (Mail Order); Last Updated By: [employer]; 08/10/2022 1:51:36 PM Patient Discussion/Summary doing well same rx transition thyroid care to pcp (no need to continue to see dr mckinney) prevnar today (pt requested) Provider Impressions clin euthyroid on rx Chief Complaint follow up thyroid History of Present Illnesshad emma 2021.. had cholecystitis feels ok now neck ok tsh fine 2021 neck fine voice fine had flu shot Review of Systems Constitutional: no fever, not feeling poorly and not feeling tired. ENT: no sore throat and no hoarseness. Cardiovascular: no chest pain, no palpitations and no lower extremity edema. Respiratory: no cough and no shortness of breath during exertion. Gastrointestinal: no abdominal pain and no nausea. Neurological: no headache and no dizziness. Active Problems Problems Abdominal pain (789.00) (R10.9) Abnormal liver function test (790.6) (R79.89) Allergic rhinitis (477.9) (J30.9) Anemia, iron deficiency (280.9) (D50.9) Asthma (493.90) (J45.909) Atypical chest pain (786.59) (R07.89) Benign paroxysmal positional vertigo of left ear (386.11) (H81.12) Chest pain (786.50) (R07.9) Class 1 obesity with body mass index (BMI) of 30.0 to 30.9 in adult (278.00,V85.30) (E66.9,Z68.30) Complete Colonoscopy Depression (311) (F32.A) Dyspnea (786.09) (R06.00) Dysuria (788.1) (R30.0) Encounter for immunization (V03.89) (Z23) Fatigue (780.79) (R53.83) Headache (784.0) (R51.9) Hip pain, bilateral (719.45) (M25.551,M25.552) Hypothyroidism, postsurgical (244.0) (E89.0) Left foot pain (729.5) (M79.672) Leukopenia (288.50) (D72.819) Low back pain (724.2) (M54.50) Postmenopausal (V49.81) (Z78.0) Reactive airway disease (493.90) (J45.909) Screening for hyperlipidemia (V77.91) (Z13.220) Sensorineural hearing loss, bilateral (389.18) (H90.3) Tachycardia (785.0) (R00.0) Thyroid nodule (241.0) (E04.1) Tinnitus, subjective, bilateral (388.31) (H93.13) Vertigo (780.4) (R42) Visit for screening mammogram (V76.12) (Z12.31) Vitamin B12 deficiency (266.2) (E53.8) Vitamin D deficiency (268.9) (E55.9) Past Medical History Problems History of Adenomyosis (617.0) (N80.03) History of allergic rhinitis (V12.69) (Z87.09) History of anemia (V12.3) (Z86.2) Surgical History Problems History of Appendectomy History of Cholecystectomy History of Colonoscopy 2015 due 2025 History of Hysterectomy History of Salpingectomy For Ectopic History of Surgery Incision And Drainage Of Abscess Retropharygeal Intraoral Approach Family History Mother Family history of Graves' disease (V18.19) (Z83.49) Father Family history of gallbladder disease (V18.59) (Z83.79) Family history of Shy-Drager syndrome Sister Family history of hypothyroidism (V18.19) (Z83.49) Grandparent Family history of malignant neoplasm of breast (V16.3) (Z80.3) Social History Problems Alcohol use (V49.89) (Z78.9) Caffeine use (V49.89) (Z78.9) Currently working Never smoker Allergies Medication No Known Drug Allergies Recorded By: La Melendez; 03/29/2015 3:22:16 PM Current Meds Medication NameInstruction Albuterol Sulfate HFA 108 (90 Base) MCG/ACT Inhalation Aerosol SolutionINHALE 2 PUFFS EVERY 4 HOURS NEEDED FOR COUGH AND WHEEZE. Calcium 500-125 MG-UNIT TABS Deplin 15 15-90.314 MG Oral Capsuletake 1 po q d Levothyroxine Sodium 88 MCG Oral TabletTake 1 tablet daily Loratadine 10 MG Oral Tablet Montelukast Sodium 10 MG Oral TabletTAKE 1 TABLET AT BEDTIME. Nasacort Allergy 24HR 55 MCG/ACT Nasal Aerosol2 squirts in each nostril qd Omeprazole 40 MG Oral Capsule Delayed ReleaseTAKE 1 CAPSULE Daily Vitamin D3 50 MCG (1999) Oral TabletTake 1 tablet daily Physical Exam 188lbs 130/ 80 rr 16 HR 72 well lady neck fine no edema skin texture normal cor rrr no tremor Signatures Electronically signed by : Quoc Mckinney MD; Aug 11 2022 8:43AM EST (Author) Reviewed by : La Melendez MD; Aug 11 2022 12:17PM EST [facility] DIGITAL MAMM SCREENING W/ TO [place] 08-09-2022 DIGITAL MAMM SCREENING W/ HUSSAIN Patient Name: CARINA HAM STUDY: DIGITAL MAMM SCREENING W/ HUSSAIN; 08/09/2022 1:44 pm ACCESSION NUMBER(S): [id number] ORDERING CLINICIAN: LA MELENDEZ INDICATION: Screening. Family history of breast cancer. COMPARISON: 02/02/2021, 12/14/2019, 11/01/2016 FINDINGS: 2D and tomosynthesis images were reviewed at 1 mm slice thickness. There are areas of scattered fibroglandular tissue. No suspicious masses or calcifications are identified. This study was interpreted with CAD. IMPRESSION: No mammographic evidence of malignancy. BI-RADS CATEGORY: Category: 1 - Negative. Recommendation: 1 Year Screening. Patient letter sent SNORM Electronically signed by: CARINA LEON MD Normal [facility] Mamm - Screening Mammogram w / Tomosynthesison 08-09-2022 MG Breast Screening FINAL REPORT Interpreted by: CARINA LEON HOPE, MD 08/09/22 14:09 Patient Name: CARINA HAM STUDY: DIGITAL MAMM SCREENING W/ HUSSAIN; 08/09/2022 1:44 pm ACCESSION NUMBER(S): [id number] ORDERING CLINICIAN: LA MELENDEZ INDICATION: Scre [facility] Work Phone: Medicare Annual Wellness Vis iton 07-23-2022 Medicare Annual Wellness Visit *Chief Complaint Annual Medicare, BW results and pt has a sore throat History of Present Illness The patient is being seen for the subsequent annual wellness visit. Past Medical, Surgical and Family History: reviewed and updated in chart. Medications and Supplements: Review of all medications by a prescribing practitioner or clinical pharmacist (such as prescriptions, OTCs, herbal therapies and supplements) documented in the medical record. No, the patient is not using opioids. Patient Self Assessment of Health Status: good. Tobacco use: Non-User Alcohol use: Non-User, As noted in social history Illicit drug use: Non-User Current diet: well balanced diet, does consume adequate fluids and does consume caffeine. Exercise Frequency: regularly. Depression/Suicide Screening: . During the past 2 weeks, the patient has not felt down, depressed or hopeless. During the past 2 weeks, the patient has not felt little interest or pleasure in doing things. Hearing Impairment: Patient has slight hearing impairment. Cognitive Impairment: No cognitive impairment observed. Bathing: performs independently. Dressing: performs independently. Walking: performs independently. Toileting: performs independently. Feeding: performs independently. Personal Hygiene: performs independently. Bowels: continent. Bladder: continent. Managing Finances: performs independently. Shopping: performs independently. Managing Medications: performs independently. Housework / Basic Home Maintenance: performs independently. Handling Transportation: performs independently. Preparing Meals: performs independently. Using the Telephone/ Communication Devices: performs independently. Falls Risk Screening:. CARINA has not fallen in the last 6 months. Home safety risk factors: none. Advance directives:. Advanced Care Planning discussed and documented advance care plan or surrogate decision maker documented in the medical record. Patient has living will. Patient has healthcare POA. 67 year old female with hx of GERD, hypothyroidism presenting for Annual Medicare, blood work results. Blood work reviewed and discussed from from outside facility. CBC, CMP, lipid panel, T3, T4, TSH, vit B12. Abnormal liver enzymes. Other labs unremarkable. Patient has a sore throat. Mild. No other symptoms. Onset 4 days ago. Ongoing chronic cough. HEalthy diet. Drinks some caffeine daily. She has lost 2 lbs. Is s/p surgery. Doing well. Hx retinal issues. Seeing eye doctor. Colonoscopy done 2015, goes to [place]. Due 2025. s/p gallbladder surgery. March. CT showed fatty liver. worried this will progress. 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 blood work showed liver abnormalities. liver enzymes abnormal now. Does not wish to see GI. S/P hysterectomy with partial oophorectomy. Does not get PAPs any longer. No chest pain, SOB, leg edema, no headaches or dizziness. Exercise tolerance good. No fever, chills. No cough or cold symptoms. No GI problems. No genitourinary issues. No skin problems. Review of Systems Constitutional: not feeling poorly, no fever, no recent weight gain and no recent weight loss. Eyes: no blurred vision and no diplopia. ENT: no hearing loss, no tinnitus, no earache, no sore throat, no hoarseness and no swollen glands in the neck. Cardiovascular: no chest pain, no tightness or heavy pressure, no shortness of breath, no palpitations and no lower extremity edema. Respiratory: no cough, not coughing up sputum and no wheezing that is consistent with asthma. Gastrointestinal: no change in bowel habits, no diarrhea, no constipation, no bloody stools, no nausea, no vomiting, no abdominal pain, no signs and symptoms of ulcer disease, no cely colored stools and no intolerance to fatty foods. Genitourinary: no urinary frequency, no dysuria, no burning sensation during urination and no hematuria. Musculoskeletal: no arthralgias, no joint stiffness, no muscle weakness, no back pain and no difficulty walking. Skin: no rashes, no change in skin color and pigmentation, no skin lesions and no skin lumps. Neurological: no headaches, no dizziness, no seizures, no tingling, no numbness, no signs and symptoms of stroke and no limb weakness. Psychiatric: no confusion, no memory lapses or loss, no depression and no sleep disturbances. Endocrine: no goiter, no thyroid disorder, no diabetes mellitus, no excessive thirst, no dry skin, no cold intolerance, no heat intolerance and no increased urinary frequency. Hematologic/Lymphatic: is not slow to heal, does not bleed easily, does not bruise easily, no thrombophlebitis, no anemia and no history of blood transfusion. All other systems have been reviewed and are negative for complaint. *Active Problems Abdominal pain (789.00) (R10.9) Abnormal liver function test (790.6) (R79.89) Allergic rhinitis (477.9) (J30.9) Anemia, iron deficiency (280.9) (D50.9) Asthma (493.90) (J45.909) (more content not included)... Normal [facility] Tobacco Screening.on 022 Fall risk assessment a) No falls within the last year [facility] Work Phone: Tobacco use status [facility] b) No [facility] Work Phone: Initial Visit (Otolaryngolog y)on 04-11-2022 Initial Visit (Otolaryngology) Diagnoses/Problems Vertigo (780.4) (R42) Benign paroxysmal positional vertigo of left ear (386.11) (H81.12) Sensorineural hearing loss, bilateral (389.18) (H90.3) Tinnitus, subjective, bilateral (388.31) (H93.13) Provider Impressions A/P: This patient presents for initial evaluation of acute acquired vertigo secondary to left-sided BPPV As well as chronic acquired bilateral sensorineural hearing loss and bilateral subjective tinnitus. Reassurance given that otologic exam today is normal. Isabel-Hallpike testing is consistent with left-sided BPPV. I recommended she maintain her head in neutral position for the next 3 days. If she continues having positionally triggered vertigo, I would refer her to physical therapy. Audiogram was reviewed and detail. She is not a candidate for hearing amplification. There is left greater than right asymmetry at 8000 Hz only. I do not feel this warrants imaging at this time. I recommended repeating her audiogram in 1 year. The likely etiology of the tinnitus was reviewed. The various masking and distraction techniques were discussed. Patient is in agreement with the plan. All questions were answered to the patients satisfaction. This note was created using speech recognition merchandise planner software. Despite proofreading, several typographical errors might be present that might affect the meaning of the content. Please call with any questions. Chief Complaint Tinnitus History of Present IllnessCarina is a 66-year-old female referred by her . This patient is referred for evaluation of non-pulsatile bilateral tinnitus. The patient is accompanied by her . When asked about ear pain, hearing loss, discharge from ear, tinnitus, aural fullness or autophony, the patient admits to constant bilateral tinnitus for the past 7 months and occasionally missing words in conversation. When asked whether the tinnitus interfered with the patients daily activities or prevented the patient from falling asleep, the patient reported it does not. When asked about a significant past otological history including history of prior ear surgery, noise exposure, exposure to ototoxic drugs or agents, and/or family history of hearing loss, the patient admits to none. she reports history of BPPV which resolved after physical therapy. Patient states that this morning when getting out of bed she had brief positionally triggered vertigo. Past medical history includes anemia, asthma, depression, hypothyroid. Surgical history includes appendectomy, hysterectomy, salpingectomy, IANDD, cholecystectomy Review of Systems A comprehensive or 10 points review of the patients constitutional, neurological, HEENT, pulmonary, cardiovascular and genito-urinary systems showed only those mentioned in history of present illness. Active Problems Abdominal pain (789.00) (R10.9) Abnormal liver function test (790.6) (R79.89) Allergic rhinitis (477.9) (J30.9) Anemia, iron deficiency (280.9) (D50.9) Asthma (493.90) (J45.909) Atypical chest pain (786.59) (R07.89) Chest pain (786.50) (R07.9) Class 1 obesity with body mass index (BMI) of 30.0 to 30.9 in adult (278.00,V85.30) (E66.9,Z68.30) Complete Colonoscopy Depression (311) (F32.A) Dyspnea (786.09) (R06.00) Dysuria (788.1) (R30.0) Encounter for immunization (V03.89) (Z23) Fatigue (780.79) (R53.83) Headache (784.0) (R51.9) Hip pain, bilateral (719.45) (M25.551,M25.552) Hypothyroidism, postsurgical (244.0) (E89.0) Left foot pain (729.5) (M79.672) Leukopenia (288.50) (D72.819) Low back pain (724.2) (M54.50) Postmenopausal (V49.81) (Z78.0) Reactive airway disease (493.90) (J45.909) Screening for hyperlipidemia (V77.91) (Z13.220) Sensorineural hearing loss, bilateral (389.18) (H90.3) Tachycardia (785.0) (R00.0) Thyroid nodule (241.0) (E04.1) Tinnitus, subjective, bilateral (388.31) (H93.13) Visit for screening mammogram (V76.12) (Z12.31) Vitamin B12 deficiency (266.2) (E53.8) Vitamin D deficiency (268.9) (E55.9) Past Medical History History of Adenomyosis (617.0) (N80.0) History of allergic rhinitis (V12.69) (Z87.09) History of anemia (V12.3) (Z86.2) Surgical History History of Appendectomy History of Colonoscopy 2015 due 2025 History of Hysterectomy History of Salpingectomy For Ectopic History of Surgery Incision And Drainage Of Abscess Retropharygeal Intraoral Approach Family History Family history of Graves' disease (V18.19) (Z83.49) Family history of gallbladder disease (V18.59) (Z83.79) Family history of Shy-Drager syndrome Family history of hypothyroidism (V18.19) (Z83.49) Family history of malignant neoplasm of breast (V16.3) (Z80.3) Social History Alcohol use (V49.89) (Z72.89) Caffeine use (V49.89) (Z78.9) Currently working Never smoker Allergies No Known Drug Allergies Recorded By: La Melendez; 03/29/2015 3:22:16 PM Current Meds Medication NameInstruction Albuterol Sulfate HFA 108 (90 (more content not included)... Normal [facility] Office Visit (Audiology)on 04-11-2022 Follow-up visit Diagnoses/Problems Sensorineural hearing loss, bilateral (389.18) (H90.3) Patient Discussion/Summary Summary: -Normal hearing sloping to a right mild and left moderate sensorineural hearing loss at 8000 Hz. -Excellent word recognition ability bilaterally. -Normal middle ear pressure and admittance bilaterally. Recommendations / Treatment Plan: 1) Continue medical follow-up with Kacey Patterson CNP. 2) Use noise maskers (e.g. TV, radio, sound conditioner, tinnitus relief phone cassius, etc.) in an attempt to provide relief from the effects of tinnitus. 3) Retest annually or sooner if concerns about a change in hearing arise, or as medically indicated. CC: Patient (provided copy of the audiogram in clinic) La Melendez MD (PCP) Appointment time: 10:07AM - 10:31AM Chief Complaint Tinnitus; dizziness Adult Risk ScreeningThere are no spiritual/cultural practices/values/needs that are important to know Initial Fall Risk Screening: CARINA has not fallen in the last 6 months. CARINA does not have a fear of falling. She does not need assistance with sitting, standing or walking. Does not need assistance walking in her home. She does not need assistance in an unfamiliar setting. The patient is not using an assistive device. Domestic Violence Screen: Does not feel threatened or abused physically, emotionally or sexually. Do you feel UNSAFE? The patient feels safe in the home. Depression/Suicide Screening: During the past 2 weeks, the patient felt down, depressed or hopeless. During the past 2 weeks, the patient has not felt little interest or pleasure in doing things. Reference Documentation See scanned note : Audiogram. History of Present Illness History was obtained from patient: Ms. Ham was seen on order from Kacey Patterson CNP for reported tinnitus and dizziness. -Reported bilateral tinnitus constantly since around August-September 2021. -Had previously experienced BPPV and underwent successful canalith repositioning. -This morning noted approximately 20 minutes of no noticeable tinnitus, but did experience some slight vertigo upon sitting up in bed. -Denied otalgia, otorrhea, aural fullness, prior otologic surgery, and family history of hearing loss Patient's preferred language: Guamanian Preferred language of the parent, legal guardian or surrogate decision-maker of this minor or incapacitated patient: Not Applicable No overt signs of domestic violence/neglect/abuse. No referral made to Direct Sales Professional. Pain not interfering with optimal level of function or ability to assess and/or treat. Pain Scale rank: 0/10 Pain Scale used: Numeric No referral made to primary care provider (PCP). Factors/Barriers influencing patient's ability to complete assessment or learn: none. Person taught: patient. Readiness to learn: no barriers. Results of Teaching/Counseling: verbalize recall / understanding and teaching complete. Results/Data Otoscopy showed clear ear canals bilaterally. RIGHT EAR: -Tympanometry: Type A tympanogram, consistent with normal middle ear pressure and admittance. -Acoustic reflexes: Ipsilateral and contralateral acoustic reflexes were present 500-4000 Hz. Audiometric evaluation revealed hearing sensitivity within normal limits through 6000 Hz sloping to a mild sensorineural hearing loss at 8000 Hz with word recognition ability estimated to be excellent (100%) based on an NU-6 recorded 25-word list. LEFT EAR: -Tympanometry: Type A tympanogram, consistent with normal middle ear pressure and admittance. -Acoustic reflexes: Ipsilateral and contralateral acoustic reflexes were present 500-4000 Hz. Audiometric evaluation revealed hearing sensitivity within normal limits through 6000 Hz sloping to a moderate sensorineural hearing loss at 8000 Hz with word recognition ability estimated to be excellent (100%) based on an NU-6 recorded 25-word list. Signatures Electronically signed by : Laila Berg; Apr 11 2022 11:04AM EST (Author) Reviewed by : La Melendez MD; Apr 12 2022 9:29AM EST Normal [facility] Tobacco Screening.on 022 Fall risk assessment a) No falls within the last year [facility] Work Phone: Tobacco use status [facility] b) No [facility] Work Phone: Bacteria Ur Culton 2 Bacteria identified Cx Nom (U) CULTURE, URINE: No growth (<1,000 CFU/ml) Normal [facility] Comment on above: Performed By: #### 6 30-4 ####[facility] [id number] [address] [place] CASE MANAGEMon 03-27-2022 CASE MANAGEM HNO ID: [id number] Author: Lisa Jones RN Service: Case Management Author Type: Registered Nurse Type: Care Mgt Progress Note Filed: 03/27/2022 1:55 PM Note Text: CARE MANAGEMENT DISCHARGE NOTE SERVICE DATE: 03/27/2022 SERVICE TIME: 1:55 PM LOS: 0 days Admission Date: 03/26/2022 DISCHARGE ARRANGEMENT (list agency and phone number) Discharge Arrangement: Home with Self Care CAREGIVER ASSESSMENT: Caregiver is ready, willing and able to meet the patient's needs as recommended by the inter-professional team:: No Caregiver needed Patient's transition needs and plan for meeting these needs: Home HANDOFF COMMUNICATION: Handoff to: Primary Care Physician Primary Care Physician Name/Phone: Dr. La Melendez- [phone] TRANSPORTATION ARRANGEMENTS: Transportation Arrangements: Car Needs Prior to Discharge: Ready for Discharge Discharge order written for today. No skilled home going needs identified at discharge. SIGNATURE: Lisa Jones RN PATIENT NAME: Carina Ham DATE: March 27, 2022 TIME: 1:55 PM PAGER/CONTACT #: [phone] [facility] CASE MGT INIT [facility] 2021 CASE MGT [facility] HNO ID: [id number] Author: Lisa Jones RN Service: Case Management Author Type: Registered Nurse Type: Care Mgt Initial Assessment Filed: 03/27/2022 9:24 AM Note Text: CARE MANAGEMENT: ASSESSMENT AND DISCHARGE PLAN SERVICE DATE: March 27, 2022 SERVICE TIME: 9:24 AM PRIMARY CARE PHYSICIAN: La Melendez MD Primary Contact: Extended Emergency Contact Information Primary Emergency Contact: FRANC MONTE Address: [address] [place] [address] [place] [address] Relation: Spouse ADMISSION STATUS: Emergency Insurance Provider: MEDICARE A AND B NEEDS PRIOR TO DISCHARGE Needs Prior to Discharge: To Be Determined POTENTIAL TRANSITION PLANS To Be Determined Based on clinical judgement, Care Management will address the following needs: No transitional/discharge planning needs at this time Patient's perception of need for this admission: Abd Pain ADVANCE DIRECTIVES Current Advance Directive: None Lead Application Architect Attempted to Assist with AD Completion: Yes MS/BEHAVIOR Baseline Mental Status Prior to this Illness what was the patient's Baseline Mental Status?: Alert AND Oriented Prior to this illness, has anyone described the patient having any of the following behaviors?: Not Applicable Relationship of the informant to the patient:: Self READMISSION Last Discharge Date: N/A Is this Within the Past 30 days? From what level of care did patient present?: Home Last discharge within 30 days: No PATIENT SCREEN Under the care of a PCP?: Yes, External Provider Provider Name: Dr. La Melendez Based on clinical judgement, Care Management will address the following needs: No transitional/discharge planning needs at this time CAREGIVER ASSESSMENT Caregiver is ready, willing and able to meet the patient's needs as recommended by the inter-professional team:: No Caregiver needed Patient's transition needs and plan for meeting these needs: TBD FREEDOM OF CHOICE EXPLAINED: Are you interested in bedside delivery of your medications? No ASSESSMENT AND PLAN: This patient has been screened for Care Management Transitional Planning Services. At this time, it does not appear this patient will require transition planning services. Should this change, and the patient require transition planning services during this admission, please contact the ed case manager assigned to the floor. Thank you. SIGNATURE: Lisa Jones RN PATIENT NAME: Carina Ham DATE: March 27, 2022 TIME: 9:24 AM CONTACT #: [phone] Normal [facility] CBC W Auto Differential pane l (Bld)on 03-27-2022 Basophils (Bld) [#/Vol] 10*3/uL Normal <0.11 [facility] Comment on above: Order Comment: Speci men Type: BLOOD SPECIMENOrdering Facility: [facility] Address: [address] [place] [address] Performed By: #### 5 7021-8 ####[facility] LABORATORYCLIA [id number] [address] Basophils/100 WBC (Bld) 0.1 % Normal [facility] Comment on above: Order Comment: Speci men Type: BLOOD SPECIMENOrdering Facility: [facility] Address: [address] [place] [address] Performed By: #### 5 7021-8 ####[facility] LABORATORYCLIA [id number] [address] [place] [facility] Differential cell count method Nom (Bld) Auto Normal [facility] Comment on above: Order Comment: Speci men Type: BLOOD SPECIMENOrdering Facility: [facility] Address: [address] [place] [address] Performed By: #### 5 7021-8 ####[facility] LABORATORYCLIA [id number] [address] [place] Eosinophils (Bld) [#/Vol] 10*3/uL Normal <0.46 [facility] Comment on above: Order Comment: Speci men Type: BLOOD SPECIMENOrdering Facility: [facility] Address: [address] [place] [address] Performed By: #### 5 7021-8 ####[facility] LABORATORYCLIA [id number] [address] Eosinophils/100 WBC (Bld) 0.0 % Normal [facility] Comment on above: Order Comment: Speci men Type: BLOOD SPECIMENOrdering Facility: [facility] Address: [address] [place] [address] Performed By: #### 5 7021-8 ####[facility] LABORATORYCLIA [id number] [address] Erythrocyte distribution width (RBC) [Ratio] 12.3 % Normal 11.5-15.0 [facility] Comment on above: Order Comment: Speci men Type: BLOOD SPECIMENOrdering Facility: [facility] Address: [address] [place] [address] Performed By: #### 5 7021-8 ####[facility] LABORATORYCLIA [id number] [address] Hematocrit (Bld) [Volume fraction] 36.1 % Normal 36.0-46.0 [facility] Comment on above: Order Comment: Speci men Type: BLOOD SPECIMENOrdering Facility: [facility] Address: [address] [place] [address] Performed By: #### 5 7021-8 ####[facility] LABORATORYCLIA [id number] [address] [place] Hemoglobin (Bld) [Mass/Vol] 12.1 g/dL Normal 11.5-15.5 [facility] Comment on above: Order Comment: Speci men Type: BLOOD SPECIMENOrdering Facility: [facility] Address: [address] [place] [address] Performed By: #### 5 7021-8 ####[facility] LABORATORYCLIA [id number] [address] IMMATURE GRAN % 1.1 % Normal [facility] Comment on above: Order Comment: Speci men Type: BLOOD SPECIMENOrdering Facility: [facility] Address: [address] [place] [address] Performed By: #### 5 7021-8 ####[facility] LABORATORYCLIA [id number] [address] IMMATURE GRAN ABS 0.14 k/uL High <0.10 [facility] Comment on above: Order Comment: Speci men Type: BLOOD SPECIMENOrdering Facility: [facility] Address: [address] [place] [address] Performed By: #### 5 7021-8 ####[facility] LABORATORYCLIA [id number] [address] Lymphocytes (Bld) [#/Vol] 0.78 10*3/uL Low 1.00-4.00 [facility] Comment on above: Order Comment: Speci men Type: BLOOD SPECIMENOrdering Facility: [facility] Address: [address] [place] [address] Performed By: #### 5 7021-8 ####S[facility] LABORATORYCLIA [id number] [address] Lymphocytes/100 WBC (Bld) 5.9 % Normal [facility] Comment on above: Order Comment: Speci men Type: BLOOD SPECIMENOrdering Facility: [facility] Address: [address] [place] [address] Performed By: #### 5 7021-8 ####[facility] LABORATORYCLIA [id number] [address] [place] [facility] MCH (RBC) [Entitic mass] 31.2 pg Normal 26.0-34.0 [facility] Comment on above: Order Comment: Speci men Type: BLOOD SPECIMENOrdering Facility: [facility] Address: [address] [place] [address] Performed By: #### 5 7021-8 ####S[facility] LABORATORYCLIA [id number] [address] [place] MCHC (RBC) [Mass/Vol] 33.5 g/dL Normal 30.5-36.0 [facility] Comment on above: Order Comment: Speci men Type: BLOOD SPECIMENOrdering Facility: [facility] Address: [address] [place] [address] Performed By: #### 5 7021-8 ####S[facility] LABORATORYCLIA [id number] [address] [place] MCV (RBC) [Entitic vol] 93.0 fL Normal 80.0-100.0 [facility] Comment on above: Order Comment: Speci men Type: BLOOD SPECIMENOrdering Facility: [facility] Address: [address] [place] [address] Performed By: #### 5 7021-8 ####SANDHU LABORATORYCLIA [id number] [place] [address] [place] Monocytes (Bld) [#/Vol] 1.18 10*3/uL High <0.87 [facility] Comment on above: Order Comment: Speci men Type: BLOOD SPECIMENOrdering Facility: [facility] Address: [address] [place] [address] Performed By: #### 5 7021-8 ####S[facility] LABORATORYCLIA [id number] [address] Monocytes/100 WBC (Bld) 9.0 % Normal [facility] Comment on above: Order Comment: Speci men Type: BLOOD SPECIMENOrdering Facility: [facility] Address: [address] [place] [address] Performed By: #### 5 7021-8 ####SAND[facility] LABORATORYCLIA [id number] [place] [address] [place] Neutrophils (Bld) [#/Vol] 11.03 10*3/uL High 1.45-7.50 [facility] Comment on above: Order Comment: Speci men Type: BLOOD SPECIMENOrdering Facility: [facility] Address: [address] [place] [address] Performed By: #### 5 7021-8 ####S[facility] LABORATORYCLIA [id number] [address] Neutrophils/100 WBC (Bld) 83.9 % Normal [facility] Comment on above: Order Comment: Speci men Type: BLOOD SPECIMENOrdering Facility: [facility] Address: [address] [place] [address] Performed By: #### 5 7021-8 ####S[facility] LABORATORYCLIA [id number] [place] [address] [place] Nucleated RBC (Bld) [#/Vol] 10*3/uL Normal <0.01 [facility] Comment on above: Order Comment: Speci men Type: BLOOD SPECIMENOrdering Facility: [facility] Address: [address] [place] [address] Performed By: #### 5 7021-8 ####S[facility] LABORATORYCLIA [id number] [address] [place] [facility] Nucleated RBC/100 WBC (Bld) [Ratio] 0.0 /100 WBC Normal [facility] Comment on above: Order Comment: Speci men Type: BLOOD SPECIMENOrdering Facility: [facility] Address: [address] [place] [address] Performed By: #### 5 7021-8 ####S[facility] LABORATORYCLIA [id number] [address] [place] Platelet mean volume (Bld) [Entitic vol] 10.7 fL Normal 9.0-12.7 [facility] Comment on above: Order Comment: Speci men Type: BLOOD SPECIMENOrdering Facility: [facility] Address: [address] [place] [address] Performed By: #### 5 7021-8 ####SANDHU LABORATORYCLIA [id number] [place] [address] [facility] [place] Platelets (Bld) [#/Vol] 214 10*3/uL Normal 150-400 [facility] Comment on above: Order Comment: Speci men Type: BLOOD SPECIMENOrdering Facility: [facility] Address: [address] [place], [place] [address] Performed By: #### 5 7021-8 ####SANDHU LABORATORYCLIA [id number] [place] [id number] [place] RBC (Bld) [#/Vol] 3.88 10*6/uL Low 3.90-5.[address] [facility] Comment on above: Order Comment: Speci men Type: BLOOD SPECIMENOrdering Facility: [facility] Address: [address] [place], [place] [address] Performed By: #### 5 7021-8 ####SAND[facility] LABORATORYCLIA [id number] [place] [id number] [facility] WBC (Bld) [#/Vol] 13.14 10*3/uL High 3.70-11.00 [facility] Comment on above: Order Comment: Speci men Type: BLOOD SPECIMENOrdering Facility: [facility] Address: [address] [place] [address] Performed By: #### 5 7021-8 ####S[facility] LABORATORYCLIA [id number] [address] CNDSon 03-27-2022 [facility] HNO ID: [id number] Author: Inge Ying MD Service: General Surgery Author Type: Physician Type: Discharge Summary Filed: 03/27/2022 1:25 PM Note Text: DISCHARGE NOTE (Patient Admitted Less than 48 Hours) SERVICE DATE: 03/27/2022 SERVICE TIME: 1:24 PM ADMISSION DATE: 03/26/2022 DISCHARGE DISPOSITION: Home with Self Care Feels well, good pain control, aleyda po without nausea Discharge Physical Exam: VITAL SIGNS: BP 101/58 Pulse 63 Temp 36.8 ?C (98.2 ?F) (Oral) Resp 18 Ht 167.6 cm (5' 6") Wt 93.8 kg (206 lb 12.7 oz) SpO2 94% BMI 33.38 kg/m? Axox3, looks well Abd: Soft and minimally distended, expected post op tn WBC (k/uL) Date Value 03/27/2022 13.14 (H) RBC (m/uL) Date Value 03/27/2022 3.88 (L) Hemoglobin (g/dL) Date Value 03/27/2022 12.1 Hematocrit (%) Date Value 03/27/2022 36.1 MCV (fL) Date Value 03/27/2022 93.0 MCH (pg) Date Value 03/27/2022 31.2 MCHC (g/dL) Date Value 03/27/2022 33.5 RDW-CV (%) Date Value 03/27/2022 12.3 Platelet Count (k/uL) Date Value 03/27/2022 214 MPV (fL) Date Value 03/27/2022 10.7 Glucose (mg/dL) Date Value 03/27/2022 150 (H) BUN (mg/dL) Date Value 03/27/2022 12 Creatinine (mg/dL) Date Value 03/27/2022 0.81 Sodium (mmol/L) Date Value 03/27/2022 140 Potassium (mmol/L) Date Value 03/27/2022 4.1 Chloride (mmol/L) Date Value 03/27/2022 104 CO2 (mmol/L) Date Value 03/27/2022 28 Protein, Total (g/dL) Date Value 03/27/2022 5.9 (L) Albumin (g/dL) Date Value 03/27/2022 3.1 (L) Calcium, Total (mg/dL) Date Value 03/27/2022 8.7 Alkaline Phosphatase (U/L) Date Value 03/27/2022 62 Bilirubin, Total (mg/dL) Date Value 03/27/2022 0.9 AST (U/L) Date Value 03/27/2022 54 (H) ALT (U/L) Date Value 03/27/2022 73 (H) URINALYSIS Specific [place], Ur Date Value Ref Range Status 03/26/2022 >=1.030 (H) 1.005 - 1.030 Final Glucose, Urine Date Value Ref Range Status 03/26/2022 Negative Negative Final Bilirubin, Urine Date Value Ref Range Status 03/26/2022 1+ (A) Negative Final Comment: Suggest correlation with clinical findings and serum bilirubin if clinically indicated. Ketones, Urine Date Value Ref Range Status 03/26/2022 1+ (A) Negative Final Hemoglobin/Blood,Ur Date Value Ref Range Status 03/26/2022 Trace (A) Negative Final Protein, Urine Date Value Ref Range Status 03/26/2022 2+ (A) Negative Final WBC, Urine Date Value Ref Range Status 03/26/2022 0-5 /HPF 0-5 /HPF Final Procedure: Laparoscopic cholecystectomy with intraoperative cholangiograms ACTIVITY: Go home and rest. Resume normal activity in am. Avoid lifting, pushing, or pulling anything over 20 pounds. DIET: Resume normal diet as before. Slowly reintroduce fatty foods over next 1-2 weeks WOUND CARE: shower, pat dry STITCHES: Your stitches will absorb, or fall out by themselves in a week or so. PAIN CONTROL: Dispensed.May use over the counter tylenol in addition to the prescribed medications, as directed in bottle CALL DOCTOR IF: If any signs of infection develops: redness, swelling, pus or drainage from wound, fever, swollen glands or light headedness, fainting, cold and clammy skin, and confusion should also be reported at once. Your temperature is greater than 101 degrees Farenheit. POST DISCHARGE TESTING: FOLLOW UP: CALL [phone] TO SCHEDULE FOLLOW UP IN 2-3 weeks if not already scheduled DISCHARGE MEDICATIONS (ONLY ACTIVATE WHEN READY TO DISCHARGE): Current Discharge Medication List START taking these medications ibuprofen (MOTRIN) 600 mg Take 600 mg by mouth every 6 hours as needed for pain. Qty: 30 tablet Refills: 1 oxyCODONE IR (ROXICODONE) 5 mg Take 5 mg by mouth every 6 hours as needed for pain. Qty: 12 tablet Refills: 0 Associated Diagnoses:Acute cholecystitis metroNIDAZOLE (FLAGYL) 500 mg Take 500 mg by mouth three times daily. Qty: 15 tablet Refills: 0 ciprofloxacin HCl (CIPRO) 500 mg Take 500 mg by mouth twice daily. Qty: 10 tablet Refills: 0 CONTINUE these medications which have NOT CHANGED calcium carbonate (OS-JEREMI 500) 2 tablets Take 2 tablets by mouth once daily. levothyroxine 88 mcg Take 88 mcg by mouth daily before breakfast. montelukast (SINGULAIR) 10 mg Take 10 mg by mouth daily at bedtime. mometasone furoate(NASONEX 50 MCG/ACTUATION SPRAY) 2 sprays each nostril daily Qty: 3 Refills: 3 Associated Diagnoses:Chronic rhinitis; Allergic rhinitis, cause unspecified loratadine (CLARITIN) 10 mg ORAL Tab Take one(1) tablet daily. As needed. Refills: 0 Associated Diagnoses:Allergic rhinitis, cause unspecified THERAPEUTIC MULTIVITAMIN TAB Take one(1) tablet daily. Refills: 0 ALBUTEROL 90 MCG/ACTUATION AEROSOL INHALER 2 puffs every four (4) hours as needed Refills: 0 Associated Diagnoses:Unspecified asthma(493.90) FINAL DIAGNOSIS: acute cholecystitis SIGNATURE: Inge Yates (more content not included)... Normal [facility] Comprehensive metabolic 2000 panelon 03-27-2022 Albumin [Mass/Vol] 3.1 g/dL Low 3.9-4.9 [facility] Comment on above: Order Comment: Wilfredo hicks Type: BLOOD SPECIMENOrdering Facility: [facility] Address: [address] [place] [address] Performed By: #### 2 4323-8 ####S[facility] LABORATORYCLIA [id number] [address] ALP [Catalytic activity/Vol] 62 U/L Normal 34-123 [facility] Comment on above: Order Comment: Wilfredo hicks Type: BLOOD SPECIMENOrdering Facility: [facility] Address: [address] [place] [address] Performed By: #### 2 4323-8 ####SAND[facility] LABORATORYCLIA [id number] [address] [facility] ALT [Catalytic activity/Vol] 73 U/L High 7-38 [facility] Comment on above: Order Comment: Wilfredo hicks Type: BLOOD SPECIMENOrdering Facility: [facility] Address: [address] [place] [address] Performed By: #### 2 4323-8 ####SANDHU LABORATORYCLIA [id number] [address] Anion gap [Moles/Vol] 8 mmol/L Low 9-18 [facility] Comment on above: Order Comment: Wilfredo hicks Type: BLOOD SPECIMENOrdering Facility: [facility] Address: [address] [address] Performed By: #### 2 4323-8 ####SANDHU LABORATORYCLIA [id number] [place] [address] [place] AST [Catalytic activity/Vol] 54 U/L High 13-35 [facility] Comment on above: Order Comment: Speci men Type: BLOOD SPECIMENOrdering Facility: [facility] Address: [address] [address] Performed By: #### 2 4323-8 ####SANDHU LABORATORYCLIA [id number] [place] [address] [place] Bilirubin [Mass/Vol] 0.9 mg/dL Normal 0.2-1.3 [facility] Comment on above: Order Comment: Speci men Type: BLOOD SPECIMENOrdering Facility: [facility] Address: [address] [place] [address] Performed By: #### 2 4323-8 ####SANDHU LABORATORYCLIA [id number] [place] [address] [place] Calcium [Mass/Vol] 8.7 mg/dL Normal 8.5-10.2 [facility] Comment on above: Order Comment: Speci men Type: BLOOD SPECIMENOrdering Facility: [facility] Address: [address] [place] [address] Performed By: #### 2 4323-8 ####SANDHU LABORATORYCLIA [id number] [place] [address] [place] Chloride [Moles/Vol] 104 mmol/L Normal 97-105 [facility] Comment on above: Order Comment: Speci men Type: BLOOD SPECIMENOrdering Facility: [facility] Address: [address] [address] Performed By: #### 2 4323-8 ####SANDHU LABORATORYCLIA [id number] [place] [address] [place] CO2 [Moles/Vol] 28 mmol/L Normal 22-30 [facility] Comment on above: Order Comment: Speci men Type: BLOOD SPECIMENOrdering Facility: [facility] Address: [address] [place] [address] Performed By: #### 2 4323-8 ####SANDHU LABORATORYCLIA [id number] [address] Creatinine [Mass/Vol] 0.81 mg/dL Normal 0.58-0.96 [facility] Comment on above: Order Comment: Wilfredo fabiola Type: BLOOD SPECIMENOrdering Facility: [facility] Address: [address] [place] [address] Performed By: #### 2 4323-8 ####SOMERSET LABORATORYCLIA [id number] [address] ESTIMATED GLOMERULAR FILTRATION RATE 80 mL/min/1.73m??? Normal >=60 [facility] Comment on above: Order Comment: Wilfredo hicks Type: BLOOD SPECIMENOrdering Facility: [facility] Address: [address] [place] [address] Result Comment: Melanie mated Glomerular Filtration Rate (eGFR) is calculated using the 2020 CKD-EPI creatinine equation. This equation utilizes serum creatinine, sex, and age as parameters. The creatinine assay has traceable calibration to isotope dilution-mass spectrometry. Refer to KDIGO guidelines for clinical interpretation. In patients with unstable renal function, e.g. those with acute kidney injury, the eGFR may not accurately reflect actual GFR. Performed By: #### 2 4323-8 ####SOMERSET LABORATORYCLIA [id number] [address] Glucose [Mass/Vol] 150 mg/dL High 74-99 [facility] Comment on above: Order Comment: Wilfredo fabiola Type: BLOOD SPECIMENOrdering Facility: [facility] Address: [address] [place] [address] Result Comment: The [place] Diabetes Association (ADA) provides guidance for cutoff values for fasting glucose and random glucose. The ADA defines fasting as no caloric intake for at least 8 hours. Fasting plasma glucose results between 100 to 125 mg/dL indicate increased risk for diabetes (prediabetes). Fasting plasma glucose results greater than or equal to 126 mg/dL meet the criteria for diagnosis of diabetes. In the absence of unequivocal hyperglycemia, results should be confirmed by repeat testing. In a patient with classic symptoms of hyperglycemia or hyperglycemic crisis, random plasma glucose results greater than or equal to 200 mg/dL meet the criteria for diagnosis of diabetes. Reference: Standards of Medical Care in Diabetes 2016, [place] Diabetes Association. Diabetes Care. 2016.39(Suppl 1). Performed By: #### 2 4323-8 ####SANDHU LABORATORYCLIA [id number] [address] Potassium [Moles/Vol] 4.1 mmol/L Normal 3.7-5.1 [facility] Comment on above: Order Comment: Speci men Type: BLOOD SPECIMENOrdering Facility: [facility] Address: [address] [place] [address] Performed By: #### 2 4323-8 ####SANDHU LABORATORYCLIA [id number] [address] Protein [Mass/Vol] 5.9 g/dL Low 6.3-8.0 [facility] Comment on above: Order Comment: Speci men Type: BLOOD SPECIMENOrdering Facility: [facility] Address: [address] [place] [address] Performed By: #### 2 4323-8 ####SANDHU LABORATORYCLIA [id number] [address] Sodium [Moles/Vol] 140 mmol/L Normal 136-144 [facility] Comment on above: Order Comment: Speci men Type: BLOOD SPECIMENOrdering Facility: [facility] Address: [address] [place] [address] Performed By: #### 2 4323-8 ####SANDHU LABORATORYCLIA [id number] [address] [place] [facility] Urea nitrogen [Mass/Vol] 12 mg/dL Normal 7-21 [facility] Comment on above: Order Comment: Speci men Type: BLOOD SPECIMENOrdering Facility: [facility] Address: [address] [place] [address] Performed By: #### 2 4323-8 ####SANDHU LABORATORYCLIA [id number] [address] [place] ALLIED HEALTHon 03-26-2022 ALLIED HEALTH HNO ID: [id number] Author: Alycia Mercedes, [place] Service: Radiology Author Type: Technologist Type: Allied Health Filed: 03/26/2022 12:14 PM Note Text: Radiology Service Progress Note PATIENT NAME: Carina Ham DATE OF SERVICE: March 26, 2022 TIME: 12:13 PM PATIENT IDENTITY VERIFICATION COMPLETED USING TWO (2) IDENTIFIERS: Name and Date of confirmed by patient verbally and Name and Date of confirmed by identification band. FALL SCREENING: Has the patient had 2 falls in the last year or 1 fall with injury or currently using an Ambulatory Assistive Device (Walker, Cane, Wheelchair, Crutches, etc.)? No PATIENT GENDER DATA: Female. status: : No status: NO. PATIENT RELEVANT IMPLANT DATA REVIEWED: Not Applicable RADIOLOGY DEPARTMENT: CT; Exam(s) Completed: Abdomen/Pelvis PERIPHERAL IV DATA: Not applicable SIGNED BY: KIP Salinas March 26, 2022 12:13 PM [facility] ANES POSTPROC EVALon 022 ANES POSTPROC EVAL HNO ID: [id number] Author: Adrienne Orozco MD Service: Anesthesiology Author Type: Anesthesiologist Type: Anesthesia Postprocedure Evaluation Filed: 03/26/2022 10:00 PM Note Text: POST ANESTHESIA EVALUATION NOTE : 1955 Procedure Summary Date: 03/26/22 Room / Location: [facility] OR / [facility] OR Anesthesia Start: 1529 Anesthesia Stop: 1805 Procedure: LAPAROSCOPIC CHOLECYSTECTOMY (N/A Abdomen) Diagnosis: Acute cholecystitis Surgeons: Inge Ying MD Responsible Provider: Adrienne Orozco MD Anesthesia Type: general ASA Status: 3 Anesthesia Type: general Airway Type: ETT Last Vitals Vitals Value Taken Time BP 143/73 03/26/222023 Temp 36.7 ?C (98.1 ?F) 03/26/222023 HR SpO2 68 03/26/221803 Resp 16 03/26/222023 SpO2 98 % 03/26/222023 Post Anesthesia Patient Status Patient Evaluation: PACU. PACU/ICU Patient Condition: stable. Anticipated Disposition: inpatient floor planned admission. Neurological Status: aware and responsive. Pulmonary Status: breathing comfortably on room air Airway Control: returned to baseline unsupported. Cardiovascular Status: stable. Pain Management: clinically adequate - multimodal analgesia pain management approach Postoperative Hydration: acceptable. Intraoperative Events: no significant anesthesia events Post Operative Nausea/Vomiting Status: no significant post operative nausea or vomiting Anesthetic Observations: Recommendation: continue current plan of care and further care per PACU/ICU/floor team. Anesthesia Observations No Documentation SIGNATURE: Adrienne Orozco MD PATIENT NAME: Carina Ham DATE: March 26, 2022 TIME: 9:59 PM CSN: [id number] [facility] ANES PRE-OPon 03-26-2022 ANES PRE-OP HNO ID: [id number] Author: Adrienne Orozco MD Service: Anesthesiology Author Type: Anesthesiologist Type: Anesthesia Preprocedure Evaluation Filed: 03/26/2022 3:52 PM Note Text: ANESTHESIOLOGY DAY OF SURGERY NOTE : 1955 Procedure Information Anesthesia Start Date/Time: 03/26/22 1529 Procedure: LAPAROSCOPIC CHOLECYSTECTOMY (N/A Abdomen) Location: [facility] OR / [facility] OR Surgeons: Inge Ying MD Estimated body mass index is 30.57 kg/m? as calculated from the following: Height as of 08/18/21: 167.9 cm (5' 6.1"). Weight as of this encounter: 86.2 kg (190 lb). Most recent hematocrit and potassium results: Hematocrit 45.2 03/26/2022 Potassium 3.9 03/26/2022 Relevant Problems CARDIO (+) Internal hemorrhoids without mention of complication I - PHYSICAL EVALUATION AIRWAY Patient intubated: No. Tracheostomy tube not present Mallampati: II. TM distance: >3 FB. Neck ROM: full ROM without neurological symptoms. Mouth opening: adequate. Short neck: no. Thick neck: no DENTAL Dental findings: teeth intact. Additional exam findings: no II - ANESTHESIA PLAN ASA Score: 3 Anesthetic Plan: general Airway type: ETT NPO Status: adequate Monitoring plan: Standard ASA. Postoperative analgesic plan: parenteral or oral opioids and multimodal analgesia. Patient / Surrogate agrees to blood products: yes DNR status not reviewed with patient and/or family prior to surgery. Significant changes in the patient condition since the History and Physical, not otherwise documented in primary service progress note: no. Potential Anesthesia issues that may suggest increased risk of complications or contraindication to planned procedure: none. Vitals Value Taken Time BP 153/78 06/13/22 1500 Pulse 82 03/26/22 1508 Resp 26 03/26/22 1508 Temp SpO2 84 % 03/26/22 1508 Vitals shown include unvalidated device data. Facility-Administered Medications as of 03/26/2022 Medication Dose Route Frequency - NaCl 0.9% iv flush bag 20 mL INTRAVENOUS PRN - [COMPLETED] NaCl 0.9% 1,000 mL iv bolus 1,000 mL INTRAVENOUS ONCE - piperacillin-tazobactam iv piggyback 3.375 g in dextrose (iso-osmotic) 50 mL (ZOSYN) 3.375 g INTRAVENOUS q 6 H - lactated ringers iv infusion INTRAVENOUS X (ONE-STEP ONLY) CONTINUOUS PRN Outpatient Medications as of 03/26/2022 Medication Sig - levothyroxine 88 mcg cap Take 88 mcg by mouth daily before breakfast. - montelukast (SINGULAIR) 10 mg tablet Take 10 mg by mouth daily at bedtime. - mometasone furoate(NASONEX 50 MCG/ACTUATION SPRAY) 2 sprays each nostril daily - loratadine (CLARITIN) 10 mg ORAL Tab Take one(1) tablet daily. As needed. - THERAPEUTIC MULTIVITAMIN TAB Take one(1) tablet daily. - ALBUTEROL 90 MCG/ACTUATION AEROSOL INHALER 2 puffs every four (4) hours as needed I have interviewed and examined the patient. I have reviewed the medical record and/or the pre-anesthesia evaluation, pertinent labs, and test results. This contains updated information obtained within 48 hours of Surgery/Procedure. SIGNATURE: Adrienne Orozco MD PATIENT NAME: Carina Ham DATE: March 26, 2022 TIME: 3:51 PM CSN: [id number] [facility] BRIEF OP NOTon 03-26-2022 BRIEF OP NOT HNO ID: [id number] Author: Inge Ying MD Service: General Surgery Author Type: Physician Type: Brief Op Note Filed: 03/26/2022 5:53 PM Note Text: BRIEF OPERATIVE / PROCEDURE NOTE LOG ID: [id number] SURGERY/PROCEDURE DATE: 03/26/2022 INCISION/PROCEDURE START TIME: 3:54 PM INCISION CLOSE/PROCEDURE END TIME: SURGEON(S)/PROCEDURALIS T(S) AND FANS CLERK(S): Surgeon(s) and Role: * Inge Ying MD - Primary Physician Cloth Folder Hand: Macrina Ledesma PA-C; Elisa Meyers PA-C SURGERY/PROCEDURE(S): Laparoscopic cholecystectomy with intraoperative cholangiograms ANESTHESIA: General FINDINGS: cholangiogram attempted, acute cholecysttis ESTIMATED BLOOD LOSS: minimnal SPECIMENS: 1 COMPLICATIONS: None PRE-OP/PRE-PROCEDURE DIAGNOSIS: acute cholecystitis POST-OP/POST-PROCEDURE DIAGNOSIS: Same as Preop The assistant field hockey coach TOM/ANGEL was used as no other assistant field hockey coach such as resident, fellow, RN or other physician available. Assistants role in surgery was assisting in exposure, and closure Dictated # [id number] SIGNATURE: Inge Ying MD PATIENT NAME: Carina Ham DATE: March 26, 2022 TIME: 5:44 PM [facility] Bacteria Bld Culton 03-26-20 22 Bacteria identified Cx Nom (Bld) CULTURE, BLOOD: No growth 5 days Normal [facility] Comment on above: Performed By: #### 6 00-7 ####[facility] LABCLIA [id number] [address] [place] Bacteria identified Cx Nom (Bld) CULTURE, BLOOD: No growth 5 days Normal [facility] Comment on above: Performed By: #### 6 00-7 ####[facility] LABCLIA [id number] [address] [place] CBC W Auto Differential pane l (Bld)on 03-26-2022 Band form neutrophils/100 WBC (Bld) 0.0 % [facility] Comment on above: Order Comment: Speci men Type: BLOOD SPECIMENOrdering Facility: [facility] Address: [address] [address] Performed By: #### 5 7021-8 ####SOMERSET LABORATORYCLIA [id number] [address] STATES [facility] Basophils/100 WBC (Bld) 0.0 % Normal [facility] Comment on above: Order Comment: Speci men Type: BLOOD SPECIMENOrdering Facility: [facility] Address: [address] [address] Performed By: #### 5 7021-8 ####SANDHU LABORATORYCLIA [id number] [address] [place] BLAST% 0.0 % Normal <=0.0 [facility] Comment on above: Order Comment: Speci men Type: BLOOD SPECIMENOrdering Facility: [facility] Address: [address] [place] [address] Performed By: #### 5 7021-8 ####SANDHU LABORATORYCLIA [id number] [address] OF [place] Differential cell count method Nom (Bld) Manual Normal [facility] Comment on above: Order Comment: Speci men Type: BLOOD SPECIMENOrdering Facility: [facility] Address: [address] [place] [address] Performed By: #### 5 7021-8 ####SANDHU LABORATORYCLIA [id number] [place] [address] [place] Eosinophils (Bld) [#/Vol] 0.00 10*3/uL Normal <0.46 [facility] Comment on above: Order Comment: Speci men Type: BLOOD SPECIMENOrdering Facility: [facility] Address: [address] [place] [address] Performed By: #### 5 7021-8 ####SANDHU LABORATORYCLIA [id number] [address] Eosinophils/100 WBC (Bld) 0.0 % Normal [facility] Comment on above: Order Comment: Speci men Type: BLOOD SPECIMENOrdering Facility: [facility] Address: [address] [place] [address] Performed By: #### 5 7021-8 ####SANDHU LABORATORYCLIA [id number] [address] OF [place] Erythrocyte distribution width (RBC) [Ratio] 12.3 % Normal 11.5-15.0 [facility] Comment on above: Order Comment: Speci men Type: BLOOD SPECIMENOrdering Facility: [facility] Address: [address] [place] [address] Performed By: #### 5 7021-8 ####SANDHU LABORATORYCLIA [id number] [place] [address] [place] Hematocrit (Bld) [Volume fraction] 45.2 % Normal 36.0-46.0 [facility] Comment on above: Order Comment: Speci men Type: BLOOD SPECIMENOrdering Facility: [facility] Address: [address] [place] [address] Performed By: #### 5 7021-8 ####SANDHU LABORATORYCLIA [id number] [place] [address] [place] Hemoglobin (Bld) [Mass/Vol] 15.3 g/dL Normal 11.5-15.5 [facility] Comment on above: Order Comment: Speci men Type: BLOOD SPECIMENOrdering Facility: [facility] Address: [address] [place] [address] Performed By: #### 5 7021-8 ####SANDHU LABORATORYCLIA [id number] [place] [address] [place] Lymphocytes (Bld) [#/Vol] 1.76 10*3/uL Normal 1.00-4.00 [facility] Comment on above: Order Comment: Speci men Type: BLOOD SPECIMENOrdering Facility: [facility] Address: [address] [place] [address] Performed By: #### 5 7021-8 ####SANDHU LABORATORYCLIA [id number] [address] [place] Lymphocytes/100 WBC (Bld) 8.0 % Normal [facility] Comment on above: Order Comment: Speci men Type: BLOOD SPECIMENOrdering Facility: [facility] Address: [address] [place] [address] Performed By: #### 5 7021-8 ####SANDHU LABORATORYCLIA [id number] [address] [place] Lymphocytes/100 WBC (Bld) 0.0 % Normal [facility] Comment on above: Order Comment: Speci men Type: BLOOD SPECIMENOrdering Facility: [facility] Address: [address] [address] Performed By: #### 5 7021-8 ####SANDHU LABORATORYCLIA [id number] [address] LYMPHOMA CELL 0.0 % Normal [facility] Comment on above: Order Comment: Speci men Type: BLOOD SPECIMENOrdering Facility: [facility] Address: [address] [place] [address] Performed By: #### 5 7021-8 ####SANDHU LABORATORYCLIA [id number] [address] MCH (RBC) [Entitic mass] 30.9 pg Normal 26.0-34.0 [facility] Comment on above: Order Comment: Speci men Type: BLOOD SPECIMENOrdering Facility: [facility] Address: [address] [place] [address] Performed By: #### 5 7021-8 ####SANDHU LABORATORYCLIA [id number] [address] MCHC (RBC) [Mass/Vol] 33.8 g/dL Normal 30.5-36.0 [facility] Comment on above: Order Comment: Speci men Type: BLOOD SPECIMENOrdering Facility: [facility] Address: [address] [place] [address] Performed By: #### 5 7021-8 ####SANDHU LABORATORYCLIA [id number] [address] MCV (RBC) [Entitic vol] 91.3 fL Normal 80.0-100.0 [facility] Comment on above: Order Comment: Speci men Type: BLOOD SPECIMENOrdering Facility: [facility] Address: [address] [place] [address] Performed By: #### 5 7021-8 ####SANDHU LABORATORYCLIA [id number] [address] MEGAKARYOCYTIC FRAGMENTS 0.0 /100 WBC Normal [facility] Comment on above: Order Comment: Speci men Type: BLOOD SPECIMENOrdering Facility: [facility] Address: [address] [address] Performed By: #### 5 7021-8 ####SANDHU LABORATORYCLIA [id number] [address] [place] Metamyelocytes/100 WBC (Bld) 0.0 % Normal [facility] Comment on above: Order Comment: Speci men Type: BLOOD SPECIMENOrdering Facility: [facility] Address: [address] [place] [address] Performed By: #### 5 7021-8 ####SANDHU LABORATORYCLIA [id number] [place] [address] [place] MYELO% 0.0 % Normal [facility] Comment on above: Order Comment: Speci men Type: BLOOD SPECIMENOrdering Facility: [facility] Address: [address] [place] [address] Performed By: #### 5 7021-8 ####SANDHU LABORATORYCLIA [id number] [place] [address] [place] Neutrophils (Bld) [#/Vol] 18.68 10*3/uL High 1.45-7.50 [facility] Comment on above: Order Comment: Speci men Type: BLOOD SPECIMENOrdering Facility: [facility] Address: [address] [place] [address] Performed By: #### 5 7021-8 ####SANDHU LABORATORYCLIA [id number] [address] [place] Neutrophils/100 WBC (Bld) 85.0 % Normal [facility] Comment on above: Order Comment: Speci men Type: BLOOD SPECIMENOrdering Facility: [facility] Address: [address] [place] [address] Performed By: #### 5 7021-8 ####SANDHU LABORATORYCLIA [id number] [place] [address] [place] Nucleated RBC/100 WBC (Bld) [Ratio] 0.0 /100 WBC Normal [facility] Comment on above: Order Comment: Speci men Type: BLOOD SPECIMENOrdering Facility: [facility] Address: [address] [place] [address] Performed By: #### 5 7021-8 ####SANDHU LABORATORYCLIA [id number] [address] OTHER CELLS 0.0 % Normal [facility] Comment on above: Order Comment: Speci men Type: BLOOD SPECIMENOrdering Facility: [facility] Address: [address] [place] [address] Performed By: #### 5 7021-8 ####SANDHU LABORATORYCLIA [id number] [address] PLASMA CELLS 0.0 % Normal [facility] Comment on above: Order Comment: Speci men Type: BLOOD SPECIMENOrdering Facility: [facility] Address: [address] [place] [address] Performed By: #### 5 7021-8 ####SANDHU LABORATORYCLIA [id number] [address] PLATELET ESTIMATE Adequate Normal [facility] Comment on above: Order Comment: Speci men Type: BLOOD SPECIMENOrdering Facility: [facility] Address: [address] [place], [place] [address] Performed By: #### 5 7021-8 ####SANDHU LABORATORYCLIA [id number] [address] [place] Platelet mean volume (Bld) [Entitic vol] 10.1 fL Normal 9.0-12.7 [facility] Comment on above: Order Comment: Speci men Type: BLOOD SPECIMENOrdering Facility: [facility] Address: [address] Performed By: #### 5 7021-8 ####SANDHU LABORATORYCLIA [id number] [place] [address] [facility] [place] Platelets (Bld) [#/Vol] 262 10*3/uL Normal 150-400 [facility] Comment on above: Order Comment: Speci men Type: BLOOD SPECIMENOrdering Facility: [facility] Address: [address] Performed By: #### 5 7021-8 ####SANDHU LABORATORYCLIA [id number] [address] PROMYL% 0.0 % Normal [facility] Comment on above: Order Comment: Speci men Type: BLOOD SPECIMENOrdering Facility: [facility] Address: [address] [place] [address] Performed By: #### 5 7021-8 ####SANDHU LABORATORYCLIA [id number] [address] [place] RBC (Bld) [#/Vol] 4.95 10*6/uL Normal 3.90-5.[address] [facility] Comment on above: Order Comment: Speci men Type: BLOOD SPECIMENOrdering Facility: [facility] Address: [address] [place] [address] Performed By: #### 5 7021-8 ####SANDHU LABORATORYCLIA [id number] [address] RED CELL MORPH Reviewed: unremarkable Normal [facility] Comment on above: Order Comment: Speci men Type: BLOOD SPECIMENOrdering Facility: [facility] Address: [address] [place] [address] Performed By: #### 5 7021-8 ####SANDHU LABORATORYCLIA [id number] [address] Variant lymphocytes/100 WBC (Bld) 0.0 % Normal [facility] Comment on above: Order Comment: Speci men Type: BLOOD SPECIMENOrdering Facility: [facility] Address: [address] [place] [address] Performed By: #### 5 7021-8 ####SANDHU LABORATORYCLIA [id number] [address] [place] WAM - ABS BASO 0.00 k/uL Normal <0.11 [facility] Comment on above: Order Comment: Speci men Type: BLOOD SPECIMENOrdering Facility: [facility] Address: [address] [place] [address] Performed By: #### 5 7021-8 ####SANDHU LABORATORYCLIA [id number] [place] [address] [place] WAM - ABS MONO 1.54 k/uL High <0.87 [facility] Comment on above: Order Comment: Speci men Type: BLOOD SPECIMENOrdering Facility: [facility] Address: [address] [place] [address] Performed By: #### 5 7021-8 ####SANDHU LABORATORYCLIA [id number] [place] [address] [place] WAM - MONO% 7.0 % Normal [facility] Comment on above: Order Comment: Speci men Type: BLOOD SPECIMENOrdering Facility: [facility] Address: [address] [place] [address] Performed By: #### 5 7021-8 ####SAND[facility] LABORATORYCLIA [id number] [address] [place] WAM ABSOLUTE NRBC <0.01 Normal <0.01 [facility] Comment on above: Order Comment: Speci men Type: BLOOD SPECIMENOrdering Facility: [facility] Address: [address] [place] [address] Performed By: #### 5 7021-8 ####SANDHU LABORATORYCLIA [id number] [place] [address] [place] WBC (Bld) [#/Vol] 21.98 10*3/uL High 3.70-11.00 [facility] [facility] Comment on above: Order Comment: Speci men Type: BLOOD SPECIMENOrdering Facility: [facility] Address: [address] [place] [address] Performed By: #### 5 7021-8 ####SANDHU LABORATORYCLIA [id number] [place] [address] [place] ABD/PEL WO IVCONon 2021 CT ABD/PEL WO IVCON * * *Final Report* * * DATE OF EXAM: Mar 26 2022 12:13PM [facility] [place] - CT ABD/PEL WO IVCON / PROCEDURE REASON: Abdominal pain, acute, nonlocalized * * * * Physician Interpretation * * * * EXAMINATION: CT ABDOMEN AND PELVIS WITHOUT IV CONTRAST CLINICAL HISTORY: Abdominal pain, acute, nonlocalized TECHNIQUE: Non-IV contrast imaging of the abdomen and pelvis was performed using standard technique, scanning from just above the dome of the diaphragm to the symphysis pubis. Unenhanced imaging is limited for the evaluation of some intra-abdominal and pelvic pathology. MQ: CTAPWO_3 Contrast: IV: None : ml of CT Radiation dose: Integrated Dose-length product (DLP) for this visit = 795 mGy*cm. CT Dose Reduction Employed: Automated exposure control (AEC) COMPARISON: None. RESULT: Abdomen / Pelvis: Liver: Diffuse fatty infiltration liver. Biliary: Distention of gallbladder possible thickening of the gallbladder wall. Adjacent inflammatory change. Spleen: No splenomegaly. Pancreas: Unremarkable. Adrenals: No mass. Kidneys: No calculus, hydronephrosis or finding to suggest a cyst or mass in the unenhanced kidney. GI Tract: Diverticulosis of the colon. Postsurgical change involving the bowel. No evidence of bowel obstruction. Small hiatal hernia. Lymph Nodes: No lymphadenopathy. Mesentery/peritoneum: No ascites. Retroperitoneum: No mass. Vasculature: Atherosclerotic calcification involving the abdominal aorta and its branch structures. Pelvis: Small volume free fluid in the pelvis. No free air identified. Bubbles of air in the nondependent bladder which may be iatrogenic in etiology. No ventral hernia, mass, or adenopathy. Bones/Soft Tissues: Bridging osteophytes at multiple levels in the thoracic spine. No acute osseous abnormality identified. Lower thorax: Atelectasis or scarring in the lung bases. Cardiac chambers are unremarkable in appearance. No pericardial effusion or pericardial thickening. Radio Announcer (topogram) images: No additional findings. IMPRESSION: Findings likely related to acute cholecystitis. Diverticulosis without evidence diverticulitis. Hepatic steatosis. Additional findings noted above. 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SALEEM Transcribe Date/Time: Mar 26 2022 12:38P Dictated by : LORENE INGRAM MD This examination was interpreted and the report reviewed and electronically signed by: LORENE INGRAM MD on Mar 26 2022 12:49PM EST [id number] Normal [facility] Comprehensive metabolic 2000 panelon 03-26-2022 Albumin [Mass/Vol] 4.0 g/dL Normal 3.9-4.9 [facility] Comment on above: Order Comment: Speci men Type: BLOOD SPECIMENOrdering Facility: [facility] Address: [address] [address] Performed By: #### 2 4323-8, 3040-3 ####SANDHU LABORATORYCLIA [id number] [place] [address] [place] ALP [Catalytic activity/Vol] 68 U/L Normal 34-123 [facility] Comment on above: Order Comment: Speci men Type: BLOOD SPECIMENOrdering Facility: [facility] Address: [address] [address] Performed By: #### 2 4323-8, 3040-3 ####SANDHU LABORATORYCLIA [id number] [address] ALT [Catalytic activity/Vol] 49 U/L High 7-38 [facility] Comment on above: Order Comment: Speci men Type: BLOOD SPECIMENOrdering Facility: [facility] Address: [address] [place] [address] Performed By: #### 2 4323-8, 0-3 ####SANDHU LABORATORYCLIA [id number] [place] [address] [place] [facility] Anion gap [Moles/Vol] 12 mmol/L Normal 9-18 [facility] Comment on above: Order Comment: Speci men Type: BLOOD SPECIMENOrdering Facility: [facility] Address: [address] [place] [address] Performed By: #### 2 4323-8, 0-3 ####SANDHU LABORATORYCLIA [id number] [address] [place] AST [Catalytic activity/Vol] 40 U/L High 13-35 [facility] Comment on above: Order Comment: Speci men Type: BLOOD SPECIMENOrdering Facility: [facility] Address: [address] [place] [address] Performed By: #### 2 4323-8, 3040-3 ####SANDHU LABORATORYCLIA [id number] [address] [place] Bilirubin [Mass/Vol] 1.1 mg/dL Normal 0.2-1.3 [facility] Comment on above: Order Comment: Speci men Type: BLOOD SPECIMENOrdering Facility: [facility] Address: [address] Performed By: #### 2 4323-8, 0-3 ####SANDHU LABORATORYCLIA [id number] [place] [address] [place] Calcium [Mass/Vol] 9.5 mg/dL Normal 8.5-10.2 [facility] Comment on above: Order Comment: Speci men Type: BLOOD SPECIMENOrdering Facility: [facility] Address: [address] Performed By: #### 2 4323-8, 3039-3 ####SANDHU LABORATORYCLIA [id number] [place] [address] [place] Chloride [Moles/Vol] 98 mmol/L Normal 97-105 [facility] Comment on above: Order Comment: Speci men Type: BLOOD SPECIMENOrdering Facility: [facility] Address: [address] [address] Performed By: #### 2 4323-8, 3039-3 ####SANDHU LABORATORYCLIA [id number] [place] [address] [place] CO2 [Moles/Vol] 25 mmol/L Normal 22-30 [facility] Comment on above: Order Comment: Speci men Type: BLOOD SPECIMENOrdering Facility: [facility] Address: [address] Performed By: #### 2 4323-8, 3039-3 ####SANDHU LABORATORYCLIA [id number] [place] [address] [place] Creatinine [Mass/Vol] 0.87 mg/dL Normal 0.58-0.96 [facility] Comment on above: Order Comment: Speci men Type: BLOOD SPECIMENOrdering Facility: [facility] Address: [address] Performed By: #### 2 4323-8, 3039-3 ####SANDHU LABORATORYCLIA [id number] [place] [address] [place] ESTIMATED GLOMERULAR FILTRATION RATE 74 mL/min/1.73m??? Normal >=60 [facility] Comment on above: Order Comment: Wilfredo hicks Type: BLOOD SPECIMENOrdering Facility: [facility] Address: [address] [place] [address] Result Comment: Melanie mated Glomerular Filtration Rate (eGFR) is calculated using the 2020 CKD-EPI creatinine equation. This equation utilizes serum creatinine, sex, and age as parameters. The creatinine assay has traceable calibration to isotope dilution-mass spectrometry. Refer to KDIGO guidelines for clinical interpretation. In patients with unstable renal function, e.g. those with acute kidney injury, the eGFR may not accurately reflect actual GFR. Performed By: #### 2 4323-8, 3039-3 ####SOMERSET LABORATORYCLIA [id number] [place] [address] [place] Glucose [Mass/Vol] 118 mg/dL High 74-99 [facility] Comment on above: Order Comment: Wilfredo hicks Type: BLOOD SPECIMENOrdering Facility: [facility] Address: [address] [place] [address] Result Comment: The [place] Diabetes Association (ADA) provides guidance for cutoff values for fasting glucose and random glucose. The ADA defines fasting as no caloric intake for at least 8 hours. Fasting plasma glucose results between 100 to 125 mg/dL indicate increased risk for diabetes (prediabetes). Fasting plasma glucose results greater than or equal to 126 mg/dL meet the criteria for diagnosis of diabetes. In the absence of unequivocal hyperglycemia, results should be confirmed by repeat testing. In a patient with classic symptoms of hyperglycemia or hyperglycemic crisis, random plasma glucose results greater than or equal to 200 mg/dL meet the criteria for diagnosis of diabetes. Reference: Standards of Medical Care in Diabetes 2016, [place] Diabetes Association. Diabetes Care. 2016.39(Suppl 1). Performed By: #### 2 4323-8, 3039-3 ####SOMERSET LABORATORYCLIA [id number] [address] [id number] [place] Potassium [Moles/Vol] 3.9 mmol/L Normal 3.7-5.1 [facility] Comment on above: Order Comment: Speci men Type: BLOOD SPECIMENOrdering Facility: [facility] Address: [address] [place] [address] Performed By: #### 2 4323-8, 3040-3 ####SANDHU LABORATORYCLIA [id number] [address] Protein [Mass/Vol] 7.3 g/dL Normal 6.3-8.0 [facility] Comment on above: Order Comment: Speci men Type: BLOOD SPECIMENOrdering Facility: [facility] Address: [address] [place] [address] Performed By: #### 2 4323-8, 3040-3 ####SANDHU LABORATORYCLIA [id number] [address] Sodium [Moles/Vol] 135 mmol/L Low 136-144 [facility] Comment on above: Order Comment: Speci men Type: BLOOD SPECIMENOrdering Facility: [facility] Address: [address] [place] [address] Performed By: #### 2 4323-8, 3040-3 ####SANDHU LABORATORYCLIA [id number] [address] [place] [facility] Urea nitrogen [Mass/Vol] 20 mg/dL Normal 7-21 [facility] Comment on above: Order Comment: Speci men Type: BLOOD SPECIMENOrdering Facility: [facility] Address: [address] [place] [address] Performed By: #### 2 4323-8, 3040-3 ####SANDHU LABORATORYCLIA [id number] [place] [address] [place] Cult, Urineon 03-26-2022 Bacteria identified Cx Nom (U) -[facility] Work Phone: Bacteria identified Cx Nom (U) PATIENT: CARINA HAM LOCATION: C0660 BILL#: [id number] : 55 AGE: SEX: F ORDERED BY: LA MELENDEZ SOURCE: URINE [facility] [facility] Work Phone: ED NOTEon 03-26-2022 ED NOTE HNO ID: [id number] Author: Noel Ochoa RN Service: ? Author Type: Registered Nurse Type: ED Notes Filed: 03/26/2022 3:13 PM Note Text: Rn to Rn report given to Rachel CARRION. [facility] ED NOTE HNO ID: [id number] Author: Noel Ochoa RN Service: ? Author Type: Registered Nurse Type: ED Notes Filed: 03/26/2022 1:48 PM Note Text: Patient to have surgery today at 1500. Patient to stay in ED until surgery per PA. This Rn called report to 3S alexis dixon. [facility] ED NOTE HNO ID: [id number] Author: Lorie Grimaldo RN Service: Nursing Author Type: Registered Nurse Type: ED Notes Filed: 03/26/2022 11:17 AM Note Text: Patient was at PCP this morning and was sent over due to fever, right sided abdominal pain, high heart rate. She notes that she vomited on Saturday x 1, and also noted blood in her urine but only on Saturday. Yesterday she was feeling worse and called to see her PCP. [facility] ED PROV NOTEon 03-26-2022 ED PROV NOTE HNO ID: [id number] Author: Alejo Marie MD Service: Emergency Medicine Author Type: Physician Type: ED Provider Notes Filed: 03/26/2022 2:00 PM Note Text: ED Provider Note Patient Name: Carina Ham : 1955 SERVICE DATE: 03/26/22 History Patient presents with: Abdominal Pain: right side UTI: sent from MD's office for possible UTI 66-year-old female with a past medical history of hypothyroidism, on Synthroid, presents to the ED today for abdominal pain, high heart rate, patient saw her PCP today who recommended ED evaluation. Patient also complained of 1 episode of vomiting on Saturday. She denies any chest pain. Denies any abdominal surgeries. PAST MEDICAL HISTORY Diagnosis Date - Allergic rhinitis, cause unspecified Allergic rhinitis - Benign neoplasm of colon - Diverticulosis of colon (without mention of hemorrhage) - Exercise-induced asthma - Hypothyroidism PAST SURGICAL HISTORY Procedure Laterality Date - APPENDECTOMY - COLONOSCOPY FLX DX W/COLLJ SPEC WHEN PFRMD 06/12/2007 Colonoscopy - DILATION AND CURETTAGE DXAND/THER NONOBSTETRIC Dilation AND curettage - OOPHORECTOMY PARTIAL/TOTAL UNI/BI with the right remaining, but no tube - THYROIDECTOMY SUBTOTAL/PARTIAL 12/2016 - TOTAL ABDOMINAL HYSTERECT W/WO RMVL TUBE OVARY Hysterectomy, ALBERTO FAMILY HISTORY Problem Relation Age of Onset - Thyroid Mother graves disease - Hypertension Father orthostatic and tia's - other (Shy Drager) Father - Breast Cancer Maternal Grandmother - Breast Cancer Paternal Grandmother unsure Social History Tobacco Use - Smoking status: Never Smoker - Smokeless tobacco: Never Used Substance and Sexual Activity - Alcohol use: Yes Comment: wine with dinner at times - Drug use: No - Sexual activity: Yes Partners: Male ALLERGIES Allergen Reactions - Bextra [Valdecoxib] GI Upset - Molds [Other] Review of Systems Constitutional: Negative for chills and fever. HENT: Negative for drooling, ear discharge, hearing loss, mouth sores, postnasal drip, sneezing and voice change. Eyes: Negative for photophobia and visual disturbance. Respiratory: Negative for chest tightness, shortness of breath and wheezing. Cardiovascular: Negative for chest pain and palpitations. Gastrointestinal: Positive for abdominal pain, nausea and vomiting. Negative for abdominal distention, anal bleeding, blood in stool, constipation, diarrhea and rectal pain. Genitourinary: Negative for dysuria, flank pain, hematuria, pelvic pain, vaginal bleeding and vaginal discharge. Musculoskeletal: Negative for arthralgias, neck pain and neck stiffness. Skin: Negative for color change. Neurological: Negative for dizziness, numbness and headaches. Psychiatric/Behavioral: Negative for agitation and confusion. The patient is not hyperactive. Physical Exam Vitals [03/26/22 1115] BP Pulse Temp Temp src Resp SpO2 Weight Height 134/77 (!) 100 37.8 ?C (100.1 ?F) Temporal 18 97 % 86.2 kg (190 lb) -- Physical Exam Constitutional: Appearance: She is well-developed. HENT: Head: Normocephalic and atraumatic. Eyes: Conjunctiva/sclera: Conjunctivae normal. Cardiovascular: Rate and Rhythm: Normal rate and regular rhythm. Pulmonary: Effort: Pulmonary effort is normal. No respiratory distress. Breath sounds: Normal breath sounds. No wheezing. Abdominal: General: Bowel sounds are normal. Palpations: Abdomen is soft. Tenderness: There is abdominal tenderness in the right upper quadrant. There is guarding and rebound. Positive signs include Manriquez's sign. Musculoskeletal: General: Normal range of motion. Cervical back: Normal range of motion and neck supple. Skin: General: Skin is warm and dry. Neurological: Mental Status: She is alert and oriented to person, place, and time. Psychiatric: Behavior: Behavior normal. Diagnostic Testing ED Labs Ordered and Reviewed VENOUS BLOOD GASES - Abnormal; Notable for the following components: Result Value Ref Range pO2, Venous <31 (*) 35 - 45 mmHg Base Excess, Venous 3 (*) 0 - 2 mmol/L Oxyhemoglobin, Venous 42 (*) 60 - 85 % Hemoglobin, Whole Blood 15.9 (*) 11.5 - 15.5 g/dL All other components within normal limits CBC + DIFF - Abnormal; Notable for the following components: WBC 21.98 (*) 3.70 - 11.00 k/uL Abs Neut (Segs + Bands) 18.68 (*) 1.45 - 7.50 k/uL Abs Irwin 1.54 (*) <0.87 k/uL All other components within normal limits Narrative: This is an appended report. These results have been appended to a previously verified report. COMP METABOLIC PANEL - Abnormal; Notable for the following components: AST 40 (*) 13 - 35 U/L ALT 49 (*) 7 - 38 U/L Glucose 118 (*) 74 - 99 mg/dL Sodium 135 (*) 136 - 144 mmol/L All other components within normal limits LIPASE BLD - Abnormal; Notable for the following components: Lipase 9 (*) 16 - 61 U/L All other components within normal limits PROTHROMB (more content not included)... Normal [facility] Gas and Carbon monoxide pane l (BldV)on 03-26-2022 Base excess Calc (BldV) [Moles/Vol] 3 mmol/L High 0-2 [facility] Comment on above: Order Comment: Speci men Type: VENOUS BLOOD SPECIMENOrdering Facility: [facility] Address: [address] [place], [place] [address] [address] Performed By: #### 2 4344-4 ####SANDHU RESPIRATORYCLIA [id number] [facility] [id number] [address] Carboxyhemoglobin (BldV) [Mass fraction] 1.1 % Normal 0.0-2.0 [facility] Comment on above: Order Comment: Speci men Type: VENOUS BLOOD SPECIMENOrdering Facility: [facility] Address: [address] [place] [address] Result Comment: Carb oxyhemoglobin Reference Range for Smokers: 2.0-8.0% Performed By: #### 2 4344-4 ####SOMERSET RESPIRATORYCLIA [id number] [facility] [id number] [address] [address] CO2 (BldV) [Partial pressure] 43 mm[Hg] Normal 42-55 [facility] Comment on above: Order Comment: Speci men Type: VENOUS BLOOD SPECIMENOrdering Facility: [facility] Address: [address] [place] [address] Performed By: #### 2 4344-4 ####[facility] RESPIRATORYUNIVERSITY OF VER[facility] [id number] [facility] [id number] [place] [address] CO2 adjusted to patient's actual temperature (BldV) [Partial pressure] Normal [facility] Comment on above: Order Comment: Speci men Type: VENOUS BLOOD SPECIMENOrdering Facility: [facility] Address: [address] [place] [address] Performed By: #### 2 4344-4 ####SOMERSET RESPIRATORYIA [id number] [facility] RESP[facility]AT[facility] [id number] [address] HCO3 (Bld) [Moles/Vol] 27 mmol/L Normal 24-28 [facility] Comment on above: Order Comment: Speci men Type: VENOUS BLOOD SPECIMENOrdering Facility: [facility] Address: [address] [place] [address] Performed By: #### 2 4344-4 ####[facility] RESPIRATORYUNIVERSITY OF VER[facility] [id number] [facility]OS[facility] RESPIRATORY [id number] [address] Hemoglobin (Bld) [Mass/Vol] 15.9 g/dL High 11.5-15.5 [facility] Comment on above: Order Comment: Speci men Type: VENOUS BLOOD SPECIMENOrdering Facility: [facility] Address: [address] Performed By: #### 2 4344-4 ####SANDHU RESPIRATORYCLIA [id number] [facility]OSP[facility] RESPIRAT[facility] [id number] [address] Lactate [Moles/Vol] 1.9 mmol/L Normal 0.5-2.[address] [facility] Comment on above: Order Comment: Speci men Type: VENOUS BLOOD SPECIMENOrdering Facility: [facility] Address: [address] Performed By: #### 2 4344-4 ####SOMERSET RESPIRATORYIA [id number] HOSPITAL RESPIRATORY [id number] [address] O2 THERAPY RA=Room Air [facility] Comment on above: Order Comment: Speci men Type: VENOUS BLOOD SPECIMENOrdering Facility: [facility] Address: [address] Performed By: #### 2 4344-4 ####SOMERSET RESPIRATORYIA [id number] HOSP[facility] RESPIRATORY [id number] [address] Oxygen (BldV) [Partial pressure] mm[Hg] Low 35-45 [facility] Comment on above: Order Comment: Speci men Type: VENOUS BLOOD SPECIMENOrdering Facility: [facility] Address: [address] Performed By: #### 2 4344-4 ####SOMERSET RESPIRATORYIA [id number] [facility]OSP[facility] RESPIRATORY [id number] [address] Oxygen adjusted to patient's actual temperature (BldV) [Partial pressure] Normal [facility] Comment on above: Order Comment: Speci men Type: VENOUS BLOOD SPECIMENOrdering Facility: [facility] Address: [address] Performed By: #### 2 4344-4 ####SANDHU RESPIRATORYCLIA [id number] [facility] RES[facility] [id number] [address] Oxyhemoglobin (BldV) [Mass fraction] 42 % Low 60-85 [facility] Comment on above: Order Comment: Speci men Type: VENOUS BLOOD SPECIMENOrdering Facility: [facility] Address: [address] [place] [address] Performed By: #### 2 4344-4 ####SANDHU RESPIRATORYCLIA [id number] [facility]OS[facility] RESPIRAT[facility] [id number] [address] pH (BldV) 7.41 [pH] Normal 7.32-7.42 [facility] Comment on above: Order Comment: Speci men Type: VENOUS BLOOD SPECIMENOrdering Facility: [facility] Address: [address] [place] [address] Performed By: #### 2 4344-4 ####SOMERSET RESPIRATORYCLIA [id number] [facility]OSP[facility] RESPIRATORY [id number] [place] [address] pH adjusted to patient's actual temperature (BldV) Normal [facility] Comment on above: Order Comment: Speci men Type: VENOUS BLOOD SPECIMENOrdering Facility: [facility] Address: [address] [place] [address] Performed By: #### 2 4344-4 ####SANDHU RESPIRATORYCLIA [id number] [facility] RESPIRAT[facility] [id number] [place] [address] Potassium [Moles/Vol] 3.5 mmol/L Normal 3.5-5.0 [facility] Comment on above: Order Comment: Speci men Type: VENOUS BLOOD SPECIMENOrdering Facility: [facility] Address: [address] [place] [address] Performed By: #### 2 4344-4 ####SANDHU RESPIRATORYCLIA [id number] [facility]OSP[facility] RESPIRATORY [id number] [address] HISTORY PHYSICALon 2 HISTORY PHYSICAL HNO ID: [id number] Author: Inge Ying MD Service: General Surgery Author Type: Physician Type: HANDP Filed: 03/26/2022 2:47 PM Note Text: Assessment IMPRESSION AND PLAN: 66 year old wf with acute cholecystitis, Risks, benefits and alternatives of proceeding with laparoscopic cholecystectomy were discussed with risks to include but not limited to hemorrhage, infection, possibility of common bile duct injury, possible intra-abdominal organ injury ,possible conversion to open. Patient expressed understanding and wishes to proceed. HPI: Carina Ham is a 66 year old female,She presented to ER for the evaluation of ruq pain x 3 days, assoc with n/v initially. Worse with certain positions. No radiation to back, no fever though had chills. On arrival t100.1. no nausea today, had breakfast - chicken soup. Saw pcp and referred here. In er elevated wbc at 21, ct and clinical exam c/w acute cholecystitis PAST MEDICAL HISTORY Diagnosis Date - Allergic rhinitis, cause unspecified Allergic rhinitis - Benign neoplasm of colon - Diverticulosis of colon (without mention of hemorrhage) - Exercise-induced asthma - Hypothyroidism PAST SURGICAL HISTORY Procedure Laterality Date - APPENDECTOMY - COLONOSCOPY FLX DX W/COLLJ SPEC WHEN PFRMD 06/12/2007 Colonoscopy - DILATION AND CURETTAGE DXAND/THER NONOBSTETRIC Dilation AND curettage - OOPHORECTOMY PARTIAL/TOTAL UNI/BI with the right remaining, but no tube - THYROIDECTOMY SUBTOTAL/PARTIAL 12/2016 - TOTAL ABDOMINAL HYSTERECT W/WO RMVL TUBE OVARY Hysterectomy, ALBERTO FAMILY HISTORY Problem Relation Age of Onset - Thyroid Mother graves disease - Hypertension Father orthostatic and tia's - other (Shy Drager) Father - Breast Cancer Maternal Grandmother - Breast Cancer Paternal Grandmother unsure CURRENT MEDICATIONS: levothyroxine 88 mcg cap Take 88 mcg [...] puffs every four (4) hours as needed CURRENT ALLERGIES: ALLERGIES Allergen Reactions - Bextra [Valdecoxib] GI Upset - Molds [Other] Social History Tobacco Use - Smoking status: Never Smoker - Smokeless tobacco: Never Used Substance Use Topics - Alcohol use: Yes Comment: wine with dinner at times - Drug use: No Ros: As above EXAM: BP 135/72 Pulse 88 Temp 37.8 ?C (100.1 ?F) (Temporal) Resp 18 Wt 86.2 kg (190 lb) SpO2 (!) 94% BMI 30.57 kg/m? BP 135/72 Pulse 88 Temp 37.8 ?C (100.1 ?F) (Temporal) Resp 18 Wt 86.2 kg (190 lb) SpO2 (!) 94% BMI 30.57 kg/m? Body mass index is 30.57 kg/m?. General appearance: Well appearing, alert, in no acute distress Head: Normocephalic, atraumatic Eyes: Anicteric sclera , Pupils are equally round and reactive Neck: No JVD, Trachea midline Lungs:Clear to auscultation, no wheezing or rhonchi Heart: RRR without murmur, gallop, or rubs. No ectopy Abdomen: Abdomen soft, tn and guarding in ruq Non distended. No masses, organomegaly Extremities:No clubbing, cyanosis, or edema. Neuro: Alert and oriented times three, No apparent distress RADIOLOGY: ct abdomen Findings likely related to acute cholecystitis. Diverticulosis without evidence diverticulitis. Hepatic steatosis. Additional findings noted above. Inge Ying MD 03/26/2022 2:43 PM [facility] IO UA (automated w/o microsc opy)on 03-26-2022 Protein (U) [Mass/Vol] 30 mg/dL -[facility] Work Phone: [phone] IO UA (automated w/o microscopy) Trace -[facility] Work Phone: [phone] IO UA (automated w/o microscopy) Negative [facility] Work Phone: [phone] IO UA (automated w/o microscopy) 2 mg/dl [facility] Work Phone: [phone] IO UA (automated w/o microscopy) 5.0 1 [facility] Work Phone: IO UA (automated w/o microscopy) (+)small - 15 [facility] Work Phone: IO UA (automated w/o microscopy) 1.015 1 [facility] Work Phone: IO UA (automated w/o microscopy) (+)small [facility] Work Phone: IO UA (automated w/o microscopy) Clear [facility] Work Phone: IO UA (automated w/o microscopy) Karly [facility] Work Phone: Lipase SerPl-cCncon 03-26-20 22 Lipase [Catalytic activity/Vol] 9 U/L Low 16-61 [facility] Comment on above: Order Comment: Speci men Type: BLOOD SPECIMENOrdering Facility: [facility] Address: [address] [place] [address] Performed By: #### 2 4323-8, 3040-3 ####[facility] LABORATORYCLIA [id number] [address] OPERATIVE NOon 03-26-2022 OPERATIVE NO HNO ID: [id number] Author: Inge Ying MD Service: General Surgery Author Type: Physician Type: Operative Report Filed: 03/26/2022 9:50 PM Note Text: [facility] - Operative Report CARINA HAM : 1955 AGE: 66. SEX: F PATIENT TYPE: [place] [facility] [place] [facility] LOCATION: [facility] ATTENDING PHYSICIAN: Inge Ying M.D. CSN NUMBER: [id number] DATE OF SURGERY/PROCEDURE: 03/26/2022 INCISION/PROCEDURE START TIME: 3:54 p.m. INCISION CLOSE/PROCEDURE END TIME: 5:37 PM PREOPERATIVE DIAGNOSIS: Acute cholecystitis. POSTOPERATIVE DIAGNOSIS: Acute cholecystitis. The assistant field hockey coach PA was used as no other assistant field hockey coach such as resident, follow, RN, or other physician was available. Cloth Folder Hand's role in surgery assisting exposure and closure. SURGEON: Inge Ying M.D. FANS CLERK: Elisa Meyers relieved by Shahid Estrada SURGERY/PROCEDURE: Laparoscopic cholecystectomy with intraoperative cholangiograms under fluoroscopy. ANESTHESIA: General. FINDINGS: Cholangiograms attempted and acute cholecystitis. ESTIMATED BLOOD LOSS: Minimal. SPECIMEN: 1. COMPLICATIONS: None. INDICATION: A 66-year-old female with acute cholecystitis. Risks and benefits of proceeding with laparoscopic cholecystectomy were discussed. Patient expressed understanding and wished to proceed. DESCRIPTION OF PROCEDURE: Patient was taken to the operating room and placed in the supine position. After satisfactory induction of general anesthesia, the patient's abdomen was prepped and draped in a sterile fashion. A 5 mm supraumbilical incision was then made. Abdomen entered under direct vision using Optiview trocar, insufflated to 15 mmHg. I then placed an 11 mm epigastric midline trocar followed by 2 subcostal right upper quadrant 5 mm trocars. The gallbladder itself was firm and encased in omentum. There were perihepatic adhesions extending from the edge of the liver to the diaphragm at the dome, whether these are acute or chronic I do not know. Bluntly dissected the omental adhesions of very thick, distended, acutely inflamed gallbladder. I used the aspiration needle to decompress. Began blunt dissection of the cystic duct infundibular junction, however, there was a lot of induration. I therefore opted at this point to go dome down, bluntly dissected out the thick rind and then peeled the gallbladder down to the cystic duct infundibular junction. I identified the cystic artery, clipped x2, and transected. I identified the cystic duct, this was incised. Attempted cholangiograms multiple times, unable to pass the catheter. Therefore, decided to abort. The catheters were removed. The duct was clipped x3 and transected and then Endoloop was placed. During placement of the Endoloop, 1 of the 3 clips did come off, but 2 remained as well as the Endoloop. The gallbladder was then removed, placed through an Endopouch, removed through the epigastric port. Liver bed was irrigated, aspirated a small amount of oozing at the liver bed, controlled with clips. Cursory exam of the upper and remaining abdomen revealed no other gross intraabdominal abnormalities. I therefore removed the epigastric trocar. 0 Maxon sojjxn-ko-yaobe suture was used to reapproximate the fascia with a good airtight closure under direct vision. Using the mapping pilot guide, remaining trocars were removed. CO2 expelled out of the abdomen. 5-0 Vicryl subcuticular stitch was used to reapproximate the skin. Skin glue applied. The patient awakened from anesthesia without difficulty and taken to PACU in stable condition. Inge Ying M.D. [facility] [id number] /[id number] Normal [facility] Office Visit (Family Medicin e)on 03-26-2022 Follow-up visit Diagnoses/Problems Dysuria (788.1) (R30.0) Abdominal pain (789.00) (R10.9) Class 1 obesity with body mass index (BMI) of 30.0 to 30.9 in adult (278.00,V85.30) (E66.9,Z68.30) Orders Abdominal pain, Dysuria Cult, Urine; Status:In Progress - Specimen/Data Collected; Done: 26Mar2022 IO UA (automated w/o microscopy); Status:Complete; Done: 26Mar2022 10:31AM Patient Discussion/Summary By signing my name below, I, Prabha SabaScribe, attest that this documentation has been prepared under the direction and in the presence of Dr. La Melendez. All medical record entries made by the Scribe were at my direction and personally dictated by me. I have reviewed the chart and agree that the record accurately reflects my personal performance of the history, physical exam, discussion and plan. Provider Impressions I referred her to [facility] Her gait was steady when she exited the office I sent to the ER for fluids and further evaluation of her abdominal pain. reviewed [place] [facility] and pt was being evaluated in the afternoon We discussed her calling her family or an EMS team to drive her to the hospital, but she declined and said that she had driven from [place]. Urinary exam and culture ordered and specimen collected. needs fu appt soon but will r/s Medicare appt Chief Complaint dysuria, and abdominal / lower back pain. History of Present Illness This is a 66-year-old female, with complaints one episode of hematuria and symptomatic low blood pressure. She also complains of fever, chills, nausea and vomiting during the weekend. sxs started 5 days ago She reports one liquid diarrhea today but has had nausea for several days Denies dysuria, no increased urinary frequency. d see the blood since this weekend slight blood tinged no emesis but poor appetite yesterday got chantel jorge and soup and that helped some Review of Systems Constitutional: chills and fever, but no night sweats. Eyes: no blurred vision and no eyesight problems. ENT: no hearing loss, no nasal congestion, no nasal discharge, no hoarseness and no sore throat. Neck: no mass(es) and no swelling. Cardiovascular: no chest pain, no intermittent leg claudication, no lower extremity edema, no palpitations and no syncope. Respiratory: no cough, no shortness of breath during exertion, no shortness of breath at rest and no wheezing. Gastrointestinal: diarrhea, nausea and vomiting, but no abdominal pain, no blood in stools, no constipation, no melena and no rectal pain. Genitourinary: hematuria, but as noted in HPI, no dysuria, no change in urinary frequency, no urinary hesitancy, no feelings of urinary urgency and no vaginal discharge. Musculoskeletal: no arthralgias, no back pain and no myalgias. Integumentary: no new skin lesions and no rashes. Neurological: no difficulty walking, no headache, no limb weakness, no numbness and no tingling. Psychiatric: no anxiety, no depression, no anhedonia and no substance use disorders. Endocrine: no recent weight gain and no recent weight loss. Hematologic/Lymphatic: no tendency for easy bruising and no swollen glands. tenderness over her right low abdomne, HENT normal no edema, Active Problems Abdominal pain (789.00) (R10.9) Abnormal liver function test (790.6) (R79.89) Allergic rhinitis (477.9) (J30.9) Anemia, iron deficiency (280.9) (D50.9) Asthma (493.90) (J45.909) Atypical chest pain (786.59) (R07.89) Chest pain (786.50) (R07.9) Complete Colonoscopy Depression (311) (F32.A) Dyspnea (786.09) (R06.00) Encounter for immunization (V03.89) (Z23) Fatigue (780.79) (R53.83) Headache (784.0) (R51.9) Hip pain, bilateral (719.45) (M25.551,M25.552) Hypothyroidism, postsurgical (244.0) (E89.0) Left foot pain (729.5) (M79.672) Leukopenia (288.50) (D72.819) Low back pain (724.2) (M54.50) Postmenopausal (V49.81) (Z78.0) Reactive airway disease (493.90) (J45.909) Screening for hyperlipidemia (V77.91) (Z13.220) Tachycardia (785.0) (R00.0) Thyroid nodule (241.0) (E04.1) Visit for screening mammogram (V76.12) (Z12.31) Vitamin B12 deficiency (266.2) (E53.8) Vitamin D deficiency (268.9) (E55.9) Past Medical History History of Adenomyosis (617.0) (N80.0) History of allergic rhinitis (V12.69) (Z87.09) History of anemia (V12.3) (Z86.2) Surgical History History of Appendectomy History of Colonoscopy 2015 due 2025 History of Hysterectomy History of Salpingectomy For Ectopic History of Surgery Incision And Drainage Of Abscess Retropharygeal Intraoral Approach Family History Family history of Graves' disease (V18.19) (Z83.49) Family history of gallbladder disease (V18.59) (Z83.79) Family history of Shy-Drager syndrome Family history of hypothyroidism (V18.19) (Z83.49) Family history of malignant neoplasm of breast (V16.3) (Z80.3) Social History Alcohol use (V49.89) (Z72.89) Caffeine use (V49.89) (Z78.9) Currently working Never sm (more content not included)... Normal [facility] PT panel Coag (PPP)on 2021 INR Coag (PPP) [Relative time] 1.1 {INR} Normal 0.9-1.3 [facility] Comment on above: Order Comment: Wilfredo hicks Type: BLOOD SPECIMENOrdering Facility: [facility] Address: [address] [place] [id number] Result Comment: Kateryna min K Antagonist (VKA) Therapeutic Range: INR 2 to 3 (Target INR of 2.5) Note: For patients treated with VKA drugs, such as warfarin, the [employer] 2012 Guideline recommends a therapeutic INR range of 2 to 3 (target INR of 2.5). This recommendation includes high-risk patients with antiphospholipid syndrome with previous arterial or venous thromboembolism, current-generation mechanical or bioprosthetic aortic heart valve replacement. Note: Patients with mechanical aortic valve replacement and additional risk factors for thromboembolic events (atrial fibrillation, previous thromboembolism, LV dysfunction, hypercoagulable conditions) or an older generation mechanical AVR (i.e., ball in-Cage) or any mechanical MVR should have a INR therapeutic range of 2.5 to 3.5 (target INR of 3). Haven GH, et al. Chest 2012, 141:7S-47S Clifton RA, et al. [facility] 2017, 70: 252-289 Performed By: #### 3 4528-0, 21472-4 ####[facility] LABORATORYCLIA [id number] [place] [address] [place] PT Coag (PPP) [Time] 11.9 s Normal 9.7-13.0 [facility] Comment on above: Order Comment: Wilfredo hicks Type: BLOOD SPECIMENOrdering Facility: [facility] Address: [address] [place] [phone] Performed By: #### 3 4528-0, 87375-4 ####[facility] LABORATORYCLIA [id number] [place] [address] [place] SARS-CoV-2 RNA Resp Ql BETSEY+p omid 03-26-2022 SARS-CoV-2 (COVID-19) RNA BETSEY+probe Ql (Resp) COVID 19 RESULT: SARS-CoV-2 (Agent of COVID-19) Not Detected by RT-PCR or equivalent method. This test has been authorized by FDA under an Emergency Use Authorization (EUA). Normal [facility] Comment on above: Performed By: #### 9 4500-6 ####S[facility]ERS[facility] LABORATORYCLIA [id number] [address] SURGICAL PATHOLOGYon 022 CASE REPORT Normal [facility] Comment on above: Order Comment: Wilfredo hicks Type: TISSUE SPECIMENOrdering Facility: [facility] Address: [address] [place] [address] Result Comment: Surg ical Pathology Report Case: [id number] Authorizing Provider: Inge Ying MD Collected: 03/26/2022 05:39 PM Ordering Location: [facility] Surgery Received: 03/27/2022 08:12 AM Pathologist: Reema Maria MD Specimen: GALLBLADDER, Gallbladder Performed By: #### S ####[facility] LABCLIA [id number] [address] FINAL DIAGNOSIS Normal [facility] Comment on above: Order Comment: Speci men Type: TISSUE SPECIMENOrdering Facility: [facility] Address: [address] [place] [address] Result Comment: A. G allbladder, cholecystectomy: - Acute cholecystitis. - Cholelithiasis. Performed By: #### S ####[facility] LABCLIA [id number] [address] FINAL PERFORMING LAB Normal [facility] Comment on above: Order Comment: Speci men Type: TISSUE SPECIMENOrdering Facility: [facility] Address: [address] [place] [address] Result Comment: Diag nostic interpretation performed at [facility], [address] [place] [address] CLIA# [id number] Director Independent: Domenic Patel M.D. Performed By: #### S ####[facility] LABCLIA [id number] [address] GROSS DESCRIPTION A. GALLBLADDER. Normal [facility] Comment on above: Order Comment: Speci men Type: TISSUE SPECIMENOrdering Facility: [facility] Address: [address] [place] [address] Result Comment: Rece ived in formalin labeled "gallbladder" is a fragmented gallbladder measuring 8.5 x 6.8 x 3.3 cm. The serosal surface demonstrates a lane-pink fibrinous exudate. The lumen is empty. The wall ranges from 0.2 to 0.3 cm in thickness. The mucosa is bile-stained and extensively granular with areas of hemorrhage and necrosis. A single lane-green firm calculus is present measuring 1.7 cm in greatest dimension. The cystic duct is not impacted. No lymph node is identified. [employer] Parts [employer] sections are submitted in formalin in cassette A1. Gross examination performed at [facility], [address] [place] [address] 03/27/22 1:15 PM Performed By: #### S ####[facility] LABCLIA [id number] [facility] [id number] [place] [address] [place] URINALYSIS, REFLEX MICROSCOP ICon 03-26-2022 Bacteria LM.HPF (Urine sed) [#/Area] Few Abnormal None Seen [facility] Comment on above: Order Comment: Speci men Type: URINE SPECIMENOrdering Facility: [facility] Address: [address] [place] [address] Performed By: #### L [id number] ####[facility] LABORATORYCLIA [id number] [place] [address] [place] Bilirubin Ql (U) 1+ Abnormal Negative [facility] Comment on above: Order Comment: Speci men Type: URINE SPECIMENOrdering Facility: [facility] Address: [address] [place] [address] Result Comment: Sugg est correlation with clinical findings and serum bilirubin if clinically indicated. Performed By: #### L [id number] ####[facility] LABORATORYCLIA [id number] [place] [address] [place] Clarity (Unsp spec) Clear Normal Clear [facility] Comment on above: Order Comment: Speci men Type: URINE SPECIMENOrdering Facility: [facility] Address: [address] [place] [address] Performed By: #### L [id number] ####[facility] LABORATORYCLIA [id number] [address] Color (U) Yellow Normal Yellow [facility] Comment on above: Order Comment: Speci men Type: URINE SPECIMENOrdering Facility: [facility] Address: [address] [place] [address] Performed By: #### L [id number] ####[facility] LABORATORYCLIA [id number] [address] Epithelial cells LM.HPF (Urine sed) [#/Area] Few Normal [facility] Comment on above: Order Comment: Speci men Type: URINE SPECIMENOrdering Facility: [facility] Address: [address] [place] [address] Performed By: #### L [id number] ####[facility] LABORATORYCLIA [id number] [address] Glucose Test strip (U) [Mass/Vol] Negative Normal Negative [facility] Comment on above: Order Comment: Speci men Type: URINE SPECIMENOrdering Facility: [facility] Address: [address] [place] [address] Performed By: #### L [id number] ####[facility] LABORATORYCLIA [id number] [address] Granular casts (Urine sed) [#/Area] 4-10 /LPF Abnormal 0 /LPF [facility] Comment on above: Order Comment: Speci men Type: URINE SPECIMENOrdering Facility: [facility] Address: [address] [place] [address] Performed By: #### L [id number] ####[facility] LABORATORYCLIA [id number] [address] Hemoglobin Ql (U) Trace Abnormal Negative [facility] Comment on above: Order Comment: Speci men Type: URINE SPECIMENOrdering Facility: [facility] Address: [address] [place] [address] Performed By: #### L [id number] ####[facility] LABORATORYCLIA [id number] [address] OF [place] Ketones Ql (U) 1+ Abnormal Negative [facility] Comment on above: Order Comment: Speci men Type: URINE SPECIMENOrdering Facility: [facility] Address: [address] [place] [address] Performed By: #### L [id number] ####[facility] LABORATORYCLIA [id number] [address] [place] Leukocyte esterase Test strip Ql (U) Negative Normal Negative [facility] Comment on above: Order Comment: Speci men Type: URINE SPECIMENOrdering Facility: [facility] Address: [address] [place] [address] Performed By: #### L [id number] ####[facility] LABORATORYCLIA [id number] [address] [place] Nitrite Ql (U) Negative Normal Negative [facility] Comment on above: Order Comment: Speci men Type: URINE SPECIMENOrdering Facility: [facility] Address: [address] [place] [address] Performed By: #### L [id number] ####[facility] LABORATORYCLIA [id number] [address] [place] pH (U) 6.0 [pH] Normal 5.0-8.0 [facility] Comment on above: Order Comment: Speci men Type: URINE SPECIMENOrdering Facility: [facility] Address: [address] [place] [address] Performed By: #### L [id number] ####[facility] LABORATORYCLIA [id number] [place] [address] [place] Protein (U) [Mass/Vol] 2+ Abnormal Negative [facility] Comment on above: Order Comment: Speci men Type: URINE SPECIMENOrdering Facility: [facility] Address: [address] [place] [address] Performed By: #### L [id number] ####[facility] LABORATORYCLIA [id number] [address] [place] RBC LM.HPF (Urine sed) [#/Area] 0-3 /HPF Normal 0-3 /HPF [facility] Comment on above: Order Comment: Speci men Type: URINE SPECIMENOrdering Facility: [facility] Address: [address] [place] [address] Performed By: #### L [id number] ####[facility] LABORATORYCLIA [id number] [place] [address] [place] Specific gravity (U) [Rel density] >=1.030 High 1.005-1.030 [facility] Comment on above: Order Comment: Speci men Type: URINE SPECIMENOrdering Facility: [facility] Address: [address] [place] [address] Performed By: #### L [id number] ####[facility] LABORATORYCLIA [id number] [address] [place] Urobilinogen Ql (U) 1.0 EU/dL Normal 0.2-1.0 EU/dL [facility] Comment on above: Order Comment: Speci men Type: URINE SPECIMENOrdering Facility: [facility] Address: [address] [place] [address] Performed By: #### L [id number] ####[facility] LABORATORYCLIA [id number] [address] WBC LM.HPF (Urine sed) [#/Area] 0-5 /HPF Normal 0-5 /HPF [facility] Comment on above: Order Comment: Speci men Type: URINE SPECIMENOrdering Facility: [facility] Address: [address] [place] [address] Performed By: #### L [id number] ####[facility] LABORATORYCLIA [id number] [address] [place] URINE CULTURE,BACTERIALon URINE CULTURE,BACTERIAL PATIENT: CARINA HAM LOCATION: [facility] BILL#: [id number] : 55 AGE: SEX: F ORDERED BY: LA MELENDEZ SOURCE: URINE COLLECTED: 03/26/22 10:32 ANTIBIOTICS AT GER.: RECEIVED : 03/27/22 01:12 SITE: Unspecified R E S U L T S URINE CULTURE,BACTERIAL FINAL 03/27/22 21:57 NO SIGNIFICANT GROWTH. Normal [facility] Comment on above: Performed By: #### U [facility] #### [facility] [address] [place] [address] XR CHOLANGIOGRAM INTRAOPon 0 03-26-2022 XR CHOLANGIOGRAM INTRAOP * * *Final Report* * * DATE OF EXAM: Mar 26 2022 5:56PM MDR [id number] - XR CHOLANGIOGRAM INTRAOP / PROCEDURE REASON: ACUTE CHOLECYSTITIS * * * * Physician Interpretation * * * * TECHNIQUE: XR CHOLANGIOGRAM INTRAOP COMPARISON: No prior study for comparison. TECHNIQUE: Limited fluoroscopic imaging from an intraoperative cholangiogram. CLINICAL INDICATION: ACUTE CHOLECYSTITIS Fluoroscopic Radiation Summary: Plane A, Air Kerma: 12.9 mGy Dose Area Product (DAP): 0.0 mGy*cm^2 Fluoro time: 0:32 min:sec IMAGE NUMBER: 1 RESULT: Contrast appears to partially opacify the gallbladder. No contrast seen within the intra or extra hepatic biliary ductal system. IMPRESSION: 1. As above. 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 Date/Time: Mar 26 2022 6:22P Dictated by : LORENE INGRAM MD This examination was interpreted and the report reviewed and electronically signed by: LORENE INGRAM MD on Mar 26 2022 6:25PM EST [id number] Normal [facility] aPTT PPPon 03-26-2022 aPTT Coag (PPP) [Time] 30.8 s Normal 23.0-32.4 [facility] Comment on above: Order Comment: Speci men Type: BLOOD SPECIMENOrdering Facility: [facility] Address: [address], [place] [address] Performed By: #### 3 4528-0, 46521-9 ####SAND[facility] LABORATORYCLIA [id number] [place] [address] [place] Absolute lymphocyte counton 03-23-2022 Lymphocytes Auto (Unsp spec) [#/Vol] 1.94 10*3/uL 0.83-4.51 [facility] Work Phone: Basophil percentageon 2021 Basophils/100 WBC (Bld) 0.7 % 0-1 [facility] Work Phone: Bilirubin [Mass/Vol] 0.60 mg/dL 0.20-1.00 [facility] Work Phone: Comment on above: For patients on eltr ombopag therapy, use of [employer] [place] TBIL is not recommended. Chloride [Moles/Vol] 109 mmol/L 98-107 [facility] Work Phone: Cholesterol [Mass/Vol] 188 mg/dL <200 [facility] Work Phone: Comment on above: <200 mg/dL Desirable 200-240 mg/dL Borderline >240 mg/dL High Risk Eosinophils/100 WBC (Bld) 5.0 % 0-5 [facility] Work Phone: Glucose [Mass/Vol] 95 mg/dL 74-106 [facility] Work Phone: Neutrophils (Bld) [#/Vol] 2.6 10*3/uL 2.0-7.7 [facility] Work Phone: Neutrophils/100 WBC (Bld) 48.8 % 47-70 [facility] Work Phone: Potassium [Moles/Vol] 3.9 mmol/L 3.5-5.1 [facility] Work Phone: Protein [Mass/Vol] 7.3 g/dL 6.4-8.2 [facility] Work Phone: Sodium [Moles/Vol] 143 mmol/L 136-145 [facility] Work Phone: Triglyceride [Mass/Vol] 116 mg/dL [facility] Work Phone: Comment on above: The drugs N-Acetylcy steine and Metamizole may falsely depress this assay.Serum Triglycerides Reference Interval Normal <150 mg/dL Borderline high 150 - 199 mg/dL High 200 - 499 mg/dL Very High > or = 500 mg/dL WBC (Bld) [#/Vol] 5.4 10*3/uL 4.4-11.0 [facility] Work Phone: Blood erythrocytes count (nu mber/volume)on 03-23-2022 RBC (Bld) [#/Vol] 4.60 10*6/uL 4.2-5.4 [facility] Work Phone: Blood hemoglobin measurement (mass/volume)on 03-23-2022 Hemoglobin (Bld) [Mass/Vol] 14.4 g/dL 12.0-15.0 [facility] Work Phone: [phone] Blood lymphocytes/100 leukoc yteson 03-23-2022 Lymphocytes/100 WBC (Bld) 36.3 % 19-41 [facility] Work Phone: [phone] Blood monocytes/100 leukocyt eson 03-23-2022 Monocytes/100 WBC (Bld) 9.0 % 0-10 [facility] Work Phone: [phone] Blood platelet mean volumeon 03-23-2022 Platelet mean volume (Bld) [Entitic vol] 10.5 fL 6.2-12.0 [facility] Work Phone: Determination of erythrocyte mean corpuscular volume (MCV)on 03-23-2022 MCV (RBC) [Entitic vol] 93.7 fL 81-99 [facility] Work Phone: [phone] Hematocrit Auto (Bld) [Volum e fraction]on 03-23-2022 Hematocrit (Bld) [Volume fraction] 43.1 % 37-47 [facility] Work Phone: [phone] Laboratory - Chemistry and C hemistry - challengeon 03-23-2022 ALP [Catalytic activity/Vol] 52 U/L 45-117 [facility] Work Phone: ALT [Catalytic activity/Vol] 61 U/L 13-56 [facility] Work Phone: [phone] CO2 [Moles/Vol] 30.0 mmol/L 21.0-32.0 [facility] Work Phone: [phone] Free T4 [Mass/Vol] 1.12 ng/dL 0.76-1.46 [facility] Work Phone: [phone] Globulin (S) [Mass/Vol] 3.4 g/dL 2.2-4.2 [facility] Work Phone: [phone] Urea nitrogen/Creatinine [Mass ratio] 22.5 mg/mg 10-20 [facility] Work Phone: [phone] Laboratory - Hematology and Cell countson 03-23-2022 Erythrocyte distribution width (RBC) [Entitic vol] 41.7 fL 35.1-43.9 [facility] Work Phone: [phone] Erythrocyte distribution width (RBC) [Ratio] 12.2 % 11.6-14.6 [facility] Work Phone: [phone] Immature granulocytes/100 WBC (Bld) 0.200 % 0.0-0.9 [facility] Work Phone: [phone] Comment on above: IG% - Immature Granu locytes (promyelocytes, myelocytes and metamyelocytes) > 1% indicates that a LEFT SHIFT is Present. MCH (RBC) [Entitic mass] 31.3 pg 27.0-32.0 [facility] Work Phone: [phone] Nucleated RBC/100 WBC (Bld) [Ratio] 0 % 0-5 [facility] Work Phone: [phone] MCHC Auto (RBC) [Mass/Vol]on 03-23-2022 MCHC (RBC) [Mass/Vol] 33.4 g/dL 32-36 [facility] ster [facility] Work Phone: [phone] No Panel Informationon 03-23 Estimated GFR (MDRD) Amer 87 mL/min >60 [facility] Work Phone: [phone] Comment on above: GFR Calc Estimated GFR (MDRD) Non-Af Amer 72 mL/min >60 [facility] Work Phone: [phone] Comment on above: Non- GFR Calc Free Triiodothyronine (T3) pg/dL 2.5 pg/mL 2.18-3.98 [facility] Work Phone: Thyroid Stimulating Hormone (TSH) 1.30 uIU/mL 0.358-3.74 [facility] Work Phone: Vitamin D 25-Hydroxy 33.5 ng/mL [facility] Work Phone: Comment on above: Vitamin D 25(OH) Sta tus Range Deficiency <20 ng/mL (50nmol/L) Insufficiency 20 - 30 ng/mL (50 - 75 nmol/L) Sufficiency 30 - 100 ng/mL (75 - 250 nmol/L) Toxicity >100 ng/mL (>250 nmol/L) Platelets bldon 03-23-2022 Platelets (Bld) [#/Vol] 259 10*3/uL 150-450 [facility] Work Phone: Serum or plasma albumin shy urement (mass/volume)on 03-23-2022 Albumin [Mass/Vol] 3.9 g/dL 3.2-5.0 [facility] Work Phone: Serum or plasma albumin/glob ulin mass ratioon 03-23-2022 Albumin/Globulin [Mass ratio] 1.1 {ratio} 0.9-2.4 [facility] Work Phone: Serum or plasma calcium shy urement (mass/volume)on 03-23-2022 Calcium [Mass/Vol] 9.2 mg/dL 8.5-10.1 [facility] Work Phone: [phone] Serum or plasma cholesterol in HDL measurement (mass/volume)on 03-23-2022 Cholesterol in HDL [Mass/Vol] 61 mg/dL [facility] Work Phone: Comment on above: The drugs N-Acetylcy steine and Metamizole may falsely depress this assay. Reference Range HDL <40 mg/dL Low HDL Cholesterol HDL >or= 60 mg/dL High HDL Cholesterol Serum or plasma cholesterol in VLDL measurement (mass/volume)on 03-23-2022 Cholesterol in VLDL [Mass/Vol] 23 mg/dL 5-40 [facility] Work Phone: Serum or plasma creatinine m easurement (mass/volume)on 03-23-2022 Creatinine [Mass/Vol] 0.84 mg/dL 0.55-1.02 [facility] Work Phone: Comment on above: The validity of the calculated GFR & GFRAA in patients over 70 years has not been determined. Clinical correlation is essential. Serum or plasma low density lipoprotein (LDL) cholesterol measurement (mass/volume)on 03-23-2022 Cholesterol in LDL [Mass/Vol] 104 mg/dL 0-130 [facility] Work Phone: Serum or plasma urea nitroge n measurement (mass/volume)on 03-23-2022 Urea nitrogen [Mass/Vol] 19 mg/dL 7-18 [facility] Work Phone: Thin prep Papanicolaou smear with manual screeningon 03-23-2022 Thin prep Papanicolaou smear with manual screening 24 U/L 15-37 [facility] Work Phone: Thin prep Papanicolaou smear with manual screening 4 5-15 [facility] Work Phone: HIPS, BILAT, MIN 2 VIEWS EAC H, AP PELVISon 02-07-2022 HIPS, BILAT, MIN 2 VIEWS EACH, AP PELVIS Patient Name: CARINA HAM STUDY: Bilateral hips, two views each. Lumbar spine, 5 views. INDICATION: hip pain b M25.551: Hip pain, bilateral M25.552: Low back pain M54.50:; hip pain b M25.551: Hip pain, bilateral M25.552:. COMPARISON: None. ACCESSION NUMBER(S): [id number]; [id number] ORDERING CLINICIAN: LA MELENDEZ FINDINGS: Bilateral hips: No acute fracture or malalignment. Left hip demonstrates mild medial joint space narrowing. Right hip joint space is well maintained. Degenerative acetabular marginal osteophytes noted bilaterally. Soft tissues are within normal limits. Lumbar spine: Vertebral body heights are preserved. No malalignment. Moderate L5-S1 spondylosis with disc height loss. Severe L5-S1 facet arthropathy. Mild L3-4 spondylosis. Mild L4-5 facet arthropathy. No spondylolysis on the oblique views. Mild bilateral sacroiliac joint degenerative changes with periarticular sclerosis. Posterior elements appear to be intact. IMPRESSION: 1. Bilateral hips: Mild left hip osteoarthrosis. Bilateral sacroiliac joint degenerative changes. 2. Lumbar spine: Lumbar spine degenerative changes as described above that are most pronounced at L5-S1 where they are severe. Electronically signed by: BEATRIZ CAIN MD [facility] No Panel Informationon 02-07 Please click on the link to view the study images Normal [facility] Work Phone: [facility] Work Phone: FINAL REPORT Interpreted by: BEATRIZ CAIN KRISHNA, MD 02/08/22 21:23 Patient Name: CARINA HAM STUDY: Bilateral hips, two views each. Lumbar spine, 5 views. INDICATION: hip pain b M25.551: Hip pain, bilateral M25.552: Low back pa [facility] Work Phone: Office Visit ([facility] Medicin e)on 02-07-2022 Follow-up visit Diagnoses/Problems Hip pain, bilateral (719.45) (M25.551,M25.552) Low back pain (724.2) (M54.50) Orders Hip pain, bilateral Xray Hips, Bilat, Min 2 Views Each, AP Pelvis; Status:Resulted - Preliminary; Done: 07Feb2022 04:45PM Patient taking Metformin or Derivatives? : No Radiologist to Determine Optimal Study : Y What are the patient's signs and symptoms? : hip pain b Hip pain, bilateral, Low back pain Physical Therapy - General Referral Evaluation and Treatment Evaluate AND Treat Status: Hold For - Scheduling Requested for: 07Feb2022 Xray Lumbosacral Spine Min 4 View; Status:Resulted - Preliminary; Done: 07Feb2022 04:45PM Radiologist to Determine Optimal Study : Y What are the patient's signs and symptoms? : hip pain b Patient Discussion/Summary By signing my name below, Nahomi Gallo Scribe, attest that this documentation has been prepared under the direction and in the presence of Dr. La Melendez. All medical record entries made by the Scribe were at my direction and personally dictated by me. I have reviewed the chart and agree that the record accurately reflects my personal performance of the history, physical exam, discussion and plan. Provider Impressions Referral to PT. Hip and lumbosacral x-ray ordered. Will call back with results and further plan. Follow up with me for routine. Chief Complaint lower back pain that radiates down her leg. History of Present Illness 66 year old female presenting for back pain. Onset a couple of days ago. lower back pain, buttock pain that radiates down her leg. Thought it was sciatic pain on left side. Pain moved to other side. Now had bilateral calf weakness or heaviness She was having groin pain. some radiating pain from hips She felt fine until today when she got in her car. SHe is planning a trip soon. wants to get her back in better sip before drives to [place] No numbness, tingling. No deformity. Denies injury. Review of Systems Constitutional: no chills, no fever and no night sweats. Eyes: no blurred vision and no eyesight problems. ENT: no hearing loss, no nasal congestion, no nasal discharge, no hoarseness and no sore throat. Neck: no mass(es) and no swelling. Cardiovascular: no chest pain, no intermittent leg claudication, no lower extremity edema, no palpitations and no syncope. Respiratory: no cough, no shortness of breath during exertion, no shortness of breath at rest and no wheezing. Gastrointestinal: no abdominal pain, no blood in stools, no constipation, no diarrhea, no melena, no nausea, no rectal pain and no vomiting. Genitourinary: no dysuria, no change in urinary frequency, no urinary hesitancy, no feelings of urinary urgency and no vaginal discharge. Musculoskeletal: limb pain, but as noted in HPI, no arthralgias, no back pain and no myalgias. Integumentary: no new skin lesions and no rashes. Neurological: no difficulty walking, no headache, no limb weakness, no numbness and no tingling. Psychiatric: no anxiety, no depression, no anhedonia and no substance use disorders. Endocrine: no recent weight gain and no recent weight loss. Hematologic/Lymphatic: no tendency for easy bruising and no swollen glands. Active Problems Abdominal pain (482.00) (R10.9) Abnormal liver function test (790.6) (R79.89) Allergic rhinitis (477.9) (J30.9) Anemia, iron deficiency (280.9) (D50.9) Asthma (493.90) (J45.909) Atypical chest pain (786.59) (R07.89) Chest pain (786.50) (R07.9) Complete Colonoscopy Depression (311) (F32.A) Dyspnea (786.09) (R06.00) Encounter for immunization (V03.89) (Z23) Fatigue (780.79) (R53.83) Headache (784.0) (R51.9) Hypothyroidism, postsurgical (244.0) (E89.0) Left foot pain (729.5) (M79.672) Leukopenia (288.50) (D72.819) Postmenopausal (V49.81) (Z78.0) Reactive airway disease (493.90) (J45.909) Screening for hyperlipidemia (V77.91) (Z13.220) Tachycardia (785.0) (R00.0) Thyroid nodule (241.0) (E04.1) Visit for screening mammogram (V76.12) (Z12.31) Vitamin B12 deficiency (266.2) (E53.8) Vitamin D deficiency (268.9) (E55.9) Past Medical History History of Adenomyosis (617.0) (N80.0) History of allergic rhinitis (V12.69) (Z87.09) History of anemia (V12.3) (Z86.2) Surgical History History of Appendectomy History of Colonoscopy 2015 due 2025 History of Hysterectomy History of Salpingectomy For Ectopic History of Surgery Incision And Drainage Of Abscess Retropharygeal Intraoral Approach Family History Family history of Graves' disease (V18.19) (Z83.49) Family history of gallbladder disease (V18.59) (Z83.79) Family history of Shy-Drager syndrome Family history of hypothyroidism (V18.19) (Z83.49) Family history of malignant neoplasm of breast (V16.3) (Z80.3) Social History Alcohol use (V49.89) (Z72.89) Caffeine use (V49.89) (Z78.9) Currently working Never smoker Allergies No Known Drug Allergies Recorded By: H (more content not included)... Normal [facility] Radiologyon 02-07-2022 XR Pelvis AP and Hip - bilateral GE 2 Views Please click on the link to view the study images Normal [facility] Work Phone: [phone] XR Pelvis AP and Hip - bilateral GE 2 Views Normal [facility] Work Phone: [phone] XR Pelvis AP and Hip - bilateral GE 2 Views FINAL REPORT Interpreted by: BEATRIZ CAIN KRISHNA, MD 02/08/22 21:23 Patient Name: CARINA HAM STUDY: Bilateral hips, two views each. Lumbar spine, 5 views. INDICATION: hip pain b M25.551: Hip pain, bilateral M25.552: Low back pa [facility] Work Phone: SPINE, LUMBOSACRAL; MIN 4 EWSon 02-07-2022 SPINE, LUMBOSACRAL; MIN 4 VIEWS Patient Name: CARINA HAM STUDY: Bilateral hips, two views each. Lumbar spine, 5 views. INDICATION: hip pain b M25.551: Hip pain, bilateral M25.552: Low back pain M54.50:; hip pain b M25.551: Hip pain, bilateral M25.552:. COMPARISON: None. ACCESSION NUMBER(S): [id number]; [id number] ORDERING CLINICIAN: LA MELENDEZ FINDINGS: Bilateral hips: No acute fracture or malalignment. Left hip demonstrates mild medial joint space narrowing. Right hip joint space is well maintained. Degenerative acetabular marginal osteophytes noted bilaterally. Soft tissues are within normal limits. Lumbar spine: Vertebral body heights are preserved. No malalignment. Moderate L5-S1 spondylosis with disc height loss. Severe L5-S1 facet arthropathy. Mild L3-4 spondylosis. Mild L4-5 facet arthropathy. No spondylolysis on the oblique views. Mild bilateral sacroiliac joint degenerative changes with periarticular sclerosis. Posterior elements appear to be intact. IMPRESSION: 1. Bilateral hips: Mild left hip osteoarthrosis. Bilateral sacroiliac joint degenerative changes. 2. Lumbar spine: Lumbar spine degenerative changes as described above that are most pronounced at L5-S1 where they are severe. Electronically signed by: BEATRIZ CAIN MD [facility] Absolute lymphocyte counton 01-23-2022 Lymphocytes Auto (Unsp spec) [#/Vol] 1.99 10*3/uL 0.83-4.51 [facility] Work Phone: Basophil percentageon 2021 Basophils/100 WBC (Bld) 0.4 % 0-1 [facility] Work Phone: Eosinophils/100 WBC (Bld) 3.8 % 0-5 [facility] Work Phone: Neutrophils (Bld) [#/Vol] 2.8 10*3/uL 2.0-7.7 [facility] Work Phone: Neutrophils/100 WBC (Bld) 49.8 % 47-70 [facility] Work Phone: WBC (Bld) [#/Vol] 5.5 10*3/uL 4.4-11.0 [facility]: Blood erythrocytes count (nu mber/volume)on 01-23-2022 RBC (Bld) [#/Vol] 4.41 10*6/uL 4.2-5.4 [facility] Work Phone: Blood hemoglobin measurement (mass/volume)on 01-23-2022 Hemoglobin (Bld) [Mass/Vol] 13.9 g/dL 12.0-15.0 [facility] Work Phone: Blood lymphocytes/100 leukoc yteson 01-23-2022 Lymphocytes/100 WBC (Bld) 36.0 % 19-41 [facility] Work Phone: Blood monocytes/100 leukocyt eson 01-23-2022 Monocytes/100 WBC (Bld) 9.6 % 0-10 [facility] Work Phone: Blood platelet mean volumeon 01-23-2022 Platelet mean volume (Bld) [Entitic vol] 10.6 fL 6.2-12.0 [facility] Work Phone: [phone] Determination of erythrocyte mean corpuscular volume (MCV)on 01-23-2022 MCV (RBC) [Entitic vol] 93.0 fL 81-99 [facility] Work Phone: [phone] Hematocrit Auto (Bld) [Volum e fraction]on 01-23-2022 Hematocrit (Bld) [Volume fraction] 41.0 % 37-47 [facility] Work Phone: [phone] Laboratory - Hematology and Cell countson 01-23-2022 Erythrocyte distribution width (RBC) [Entitic vol] 41.1 fL 35.1-43.9 [facility] Work Phone: [phone] Erythrocyte distribution width (RBC) [Ratio] 11.9 % 11.6-14.6 [facility] Work Phone: [phone] Immature granulocytes/100 WBC (Bld) 0.400 % 0.0-0.9 [facility] Work Phone: [phone] Comment on above: IG% - Immature Granu locytes (promyelocytes, myelocytes and metamyelocytes) > 1% indicates that a LEFT SHIFT is Present. MCH (RBC) [Entitic mass] 31.5 pg 27.0-32.0 [facility] Work Phone: [phone] Nucleated RBC/100 WBC (Bld) [Ratio] 0 % 0-5 [facility] Work Phone: [phone] MCHC Auto (RBC) [Mass/Vol]on 01-23-2022 MCHC (RBC) [Mass/Vol] 33.9 g/dL 32-36 [facility] Work Phone: [phone] No Panel Informationon 01-23 Thyroid Stimulating Hormone (TSH) 0.79 uIU/mL 0.358-3.74 [facility] Work Phone: Platelets bldon 01-23-2022 Platelets (Bld) [#/Vol] 275 10*3/uL 150-450 [facility] Work Phone: Office Visit (Family Medicin e)on 09-19-2021 Follow-up visit Diagnoses/Problems Anemia, iron deficiency (280.9) (D50.9) Atypical chest pain (786.59) (R07.89) Orders Anemia, iron deficiency Complete Blood Count + Differential; Status:Active; Requested for:[id number]; Patient Discussion/Summary By signing my name below, I, Crys Black, attest that this documentation has been prepared under the direction and in the presence of Dr. La Melendez. All medical record entries made by the Crys were at my direction and personally dictated by me. I have reviewed the chart and agree that the record accurately reflects my personal performance of the history, physical exam, discussion and plan. Provider Impressions F/u with cardiology as scheduled. may consider cancelling if no further sxs check cbc Call with issues or if symptoms worsen or don't improve. Follow up with me for Medicare Wellness in March 2022. Chief Complaint CARINA HAM is here for a follow-up for . Medication refills. History of Present Illness 66 year old female with hx of GERD, hypothyroidism presenting for med refills. She saw pulmonology. Underwent testing which was negative for disease. No sign of asthma. Was experiencing SOB with physical activity. Now recovered. States she had donated double RBC's when felt this way. Will avoid donations for now. She has seen cardiology. eval negative Next appt in summer she would like to cancel No chest pain, SOB, leg edema, no headaches or dizziness. Exercise tolerance good. feels back to baseline has not had cbc recheck Review of Systems Constitutional: no chills, no fever and no night sweats. Eyes: no blurred vision and no eyesight problems. ENT: no hearing loss, no nasal congestion, no nasal discharge, no hoarseness and no sore throat. Neck: no mass(es) and no swelling. Cardiovascular: no chest pain, no intermittent leg claudication, no lower extremity edema, no palpitations and no syncope. Respiratory: no cough, no shortness of breath during exertion, no shortness of breath at rest and no wheezing. Gastrointestinal: no abdominal pain, no constipation, no diarrhea, no melena, no nausea, no rectal pain and no vomiting. Genitourinary: no dysuria, no change in urinary frequency, no urinary hesitancy, no feelings of urinary urgency and no vaginal discharge. Musculoskeletal: no arthralgias, no back pain and no myalgias. Integumentary: no new skin lesions and no rashes. Neurological: no difficulty walking, no headache, no limb weakness, no numbness and no tingling. Psychiatric: no anxiety, no depression, no anhedonia and no substance use disorders. Endocrine: no recent weight gain and no recent weight loss. Hematologic/Lymphatic: no tendency for easy bruising and no swollen glands. Active Problems Abdominal pain (789.00) (R10.9) Abnormal liver function test (790.6) (R94.5) Allergic rhinitis (477.9) (J30.9) Asthma (493.90) (J45.909) Atypical chest pain (786.59) (R07.89) Chest pain (786.50) (R07.9) Complete Colonoscopy Depression (311) (F32.A) Dyspnea (786.09) (R06.00) Encounter for immunization (V03.89) (Z23) Fatigue (780.79) (R53.83) Headache (784.0) (R51.9) Hypothyroidism, postsurgical (244.0) (E89.0) Left foot pain (729.5) (M79.672) Leukopenia (288.50) (D72.819) Postmenopausal (V49.81) (Z78.0) Reactive airway disease (493.90) (J45.909) Screening for hyperlipidemia (V77.91) (Z13.220) Tachycardia (785.0) (R00.0) Thyroid nodule (241.0) (E04.1) Visit for screening mammogram (V76.12) (Z12.31) Vitamin B12 deficiency (266.2) (E53.8) Vitamin D deficiency (268.9) (E55.9) Past Medical History History of Adenomyosis (617.0) (N80.0) History of allergic rhinitis (V12.69) (Z87.09) History of anemia (V12.3) (Z86.2) Surgical History History of Appendectomy History of Colonoscopy 2015 due 2025 History of Hysterectomy History of Salpingectomy For Ectopic History of Surgery Incision And Drainage Of Abscess Retropharygeal Intraoral Approach Family History Family history of Graves' disease (V18.19) (Z83.49) Family history of gallbladder disease (V18.59) (Z83.79) Family history of Shy-Drager syndrome Family history of hypothyroidism (V18.19) (Z83.49) Family history of malignant neoplasm of breast (V16.3) (Z80.3) Social History Alcohol use (V49.89) (Z72.89) Caffeine use (V49.89) (Z78.9) Currently working Never smoker Allergies No Known Drug Allergies Recorded By: La Melendez; 03/29/2015 3:22:16 PM Current Meds Medication NameInstructionReason Omeprazole 40 MG Oral Capsule Delayed ReleaseTAKE 1 CAPSULE DailyAbdominal pain, Chest pain Albuterol Sulfate HFA 108 (90 Base) MCG/ACT Inhalation Aerosol SolutionINHALE 2 PUFFS EVERY 4 HOURS NEEDED FOR COUGH AND WHEEZE.Asthma Deplin 15 15-90.314 MG Oral Capsuletake 1 po q dDepression Nasacort Allergy 24HR 55 MCG/ACT Nasal Aerosol2 squirts in each nostril qdHeadache Levothyroxine Sodium 88 MCG Oral TabletTake 1 (more content not included)... Normal [facility] No Panel Informationon 08-18 JKZ12-11% PRE (L/S) 2.00 L/S [facility] FEV1 PRE (L) 2.29 L [facility] FEV1/FVC PRE (%) 78 % [facility] FVC PRE (L) 2.95 L [facility] PEF PRE (L/S) 7.49 L/S [facility] TSH - Thyroid Stimulating Ho rmone, Serumon 08-03-2021 TSH Qn 0.18 m[IU]/L below low threshold See Below [facility] Work Phone: Comment on above: Reference Range: 0.4 4 - 3.98 TSH testing is performed using different testing methodology at [facility] than at other [facility]. Direct result comparisons should only be made within the same method. Tobacco Screening.on 021 Tobacco use status [facility] b) No [facility] Work Phone: Tobacco Screening.on 021 Fall risk assessment a) No falls within the last year [facility] Work Phone: Tobacco use status [facility] b) No [facility] Work Phone: Mamm - Screening Mammogram w / Tomosynthesison 12-14-2019 MG Breast screening Interpreted by: JOSE LUIS BLOUNT12/14/19 14:55MRN: [id number] Name: CARINA HAM STUDY:DIGITAL MAMM SCREENING W/ HUSSAIN; 12/14/2019 2:37 pm ORDERING CLINICIAN:Referring physician. INDICATION:Screening. COMPARISON:All prior mammograms FINDINGS:2D and tomosynthesis images were reviewed at 1 mm slice thickness. There are areas of scattered fibroglandular tissue. No suspiciousmasses or calcifications are identified. IMPRESSION:No mammographic evidence of malignancy. BI-RADS CATEGORY:Category: 1 - Negative.Recommendation : 1 Year Screening. For any future breast imaging appointments, please call [phone] Patient letter sent SNORM Electronically signed by: KARY BLOUNT 12/14/19 14:55 Normal [facility] Work Phone: Vital Signs Date Time Vital Sign Value Performing Clinician Mayito lombardo 02-02-2025 09:26-0400 Body height 167.6 cm La Melendez MD Work Phone: [facility] 02-02-2025 09:26-0400 Body mass index (BMI) [Ratio] 30.67 kg/m2 La Melendez MD Work Phone: [facility] 02-02-2025 09:-040 Body temperature 98.2 [degF] La Melendez MD Work Phone: [facility] 02-02-2025 09:26-0400 Body weight 86.18 kg La Melendez MD Work Phone: [facility] 02-02-2025 09:26-0400 Diastolic blood pressure 76 mm[Hg] La Melendez MD Work Phone: 9(882)161-062942 [address] 02-02-2025 09:26-0400 Heart rate 64 /min La Melendez MD Work Phone: 0(480)686-915042 [address] 02-02-2025 09:26-0400 SaO2% (BldA) [Mass fraction] 99 % La Melendez MD Work Phone: 9(781)637-616807 [place] [address] 02-02-2025 09:26-0400 Systolic blood pressure 118 mm[Hg] La Melendez MD Work Phone: 1(510)464-455607 [place] [address] 01-25-2025 14:24-0400 Body height 167.6 cm La Melendez MD Work Phone: 8(625)702-805607 [place] [address] 01-25-2025 14:24-0400 Body mass index (BMI) [Ratio] 30.34 kg/m2 La Melendez MD Work Phone: 2(489)229-363707 [place] [address] 01-25-2025 14:24-0400 Body temperature 98.71 [degF] La Melendez MD Work Phone: 7(776)556-209407 [place] [address] 01-25-2025 14:24-0400 Body weight 85.28 kg La Melendez MD Work Phone: 4(552)330-151507 [place] [address] 01-25-2025 14:24-0400 Diastolic blood pressure 84 mm[Hg] La Melendez MD Work Phone: 9(995)375-838607 [place] [address] 01-25-2025 14:24-0400 Heart rate 94 /min La Melendez MD Work Phone: 8(841)114-957607 [place] [address] 01-25-2025 14:24-0400 SaO2% (BldA) [Mass fraction] 98 % La Melendez MD Work Phone: 7(261)821-710407 [place] [address] 01-25-2025 14:24-0400 Systolic blood pressure 118 mm[Hg] La Melendez MD Work Phone: [facility] 09-23-2024 15:06-0500 Body height 167.6 cm La Melendez MD Work Phone: [facility] 09-23-2024 15:06-0500 Body mass index (BMI) [Ratio] 31.47 kg/m2 La Melendez MD Work Phone: [facility] 09-23-2024 15:06-0500 Body temperature 98.01 [degF] La Melendez MD Work Phone: [facility] 09-23-2024 15:06-0500 Body weight 88.45 kg La Melendez MD Work Phone: [facility] 09-23-2024 15:06-0500 Diastolic blood pressure 78 mm[Hg] La Melendez MD Work Phone: [facility] 09-23-2024 15:06-0500 Heart rate 64 /min La Melendez MD Work Phone: [facility] 09-23-2024 15:06-0500 SaO2% (BldA) [Mass fraction] 98 % La Melendez MD Work Phone: [facility] 09-23-2024 15:06-0500 Systolic blood pressure 116 mm[Hg] La Melendez MD Work Phone: [facility] 09-23-2024 10:33-0500 Body height 167.6 cm Georgia Aureliano DO Work Phone: [facility] 09-23-2024 10:33-0500 Body mass index (BMI) [Ratio] 30.67 kg/m2 Georgia Aureliano DO Work Phone: [facility] 09-23-2024 10:33-0500 Body temperature 98.29 [degF] Georgia Aureliano DO Work Phone: [facility] 09-23-2024 10:33-0500 Body weight 86.18 kg Georgia Aureliano DO Work Phone: [facility] 08-26-2024 14:070500 Body height 167.6 cm [facility] 08-26-2024 14:07-0500 Body mass index (BMI) [Ratio] 31.01 kg/m2 [facility] 08-26-2024 14:07-0500 Body weight 87.1 kg [facility] 08-05-2024 [id number]:[id number] Body height 167.6 cm La Melendez MD Work Phone: [facility] 08-05-2024 10:23040 Body mass index (BMI) [Ratio] 30.99 kg/m2 La Melendez MD Work Phone: [facility] 08-05-2024 10:23040 Body temperature 98.29 [degF] La Melendez MD Work Phone: [facility] 08-05-2024 10:230400 Body weight 87.09 kg La Melendez MD Work Phone: [facility] 08-05-2024 10:23-0400 Diastolic blood pressure 74 mm[Hg] La Melendez MD Work Phone: [facility] 08-05-2024 10:23-0400 Heart rate 61 /min La Melendez MD Work Phone: [facility] 08-05-2024 10:23-0400 SaO2% (BldA) [Mass fraction] 96 % La Melendez MD Work Phone: [facility] 08-05-2024 10:23-0400 Systolic blood pressure 118 mm[Hg] La Melendez MD Work Phone: [facility] 06-24-2024 10:05-0400 Body height 167.6 cm Georgia Aureliano DO Work Phone: [facility] 06-24-2024 10:05-0400 Body mass index (BMI) [Ratio] 30.67 kg/m2 Georgia Aureliano DO Work Phone: [facility] 06-24-2024 10:05-0400 Body temperature 98.2 [degF] Georgia Aureliano DO Work Phone: [facility] 06-24-2024 10:05-0400 Body weight 86.18 kg Georgia Aureliano DO Work Phone: [facility] 06-16-2024 14:23-0400 Body height 167.6 cm La Melendez MD Work Phone: [facility] 06-16-2024 14:23-0400 Body mass index (BMI) [Ratio] 30.99 kg/m2 La Melendez MD Work Phone: [facility] 06-16-2024 14:23-0400 Body temperature 98.2 [degF] La Melendez MD Work Phone: [facility] 06-16-2024 14:23-0400 Body weight 87.09 kg La Melendez MD Work Phone: [facility] 06-16-2024 14:23-0400 Diastolic blood pressure 76 mm[Hg] La Melendez MD Work Phone: [facility] 06-16-2024 14:23-0400 Heart rate 76 /min La Melendez MD Work Phone: [facility] 06-16-2024 14:23-0400 SaO2% (BldA) [Mass fraction] 96 % La Melendez MD Work Phone: [facility] 06-16-2024 14:23-0400 Systolic blood pressure 116 mm[Hg] La Melendez MD Work Phone: [facility] 04-28-2024 10:47-0400 Body height 167.6 cm Georgia Aureliano DO Work Phone: [facility] 04-28-2024 10:47-0400 Body mass index (BMI) [Ratio] 30.67 kg/m2 Georgia Aureliano DO Work Phone: [facility] 04-28-2024 10:47-0400 Body weight 86.18 kg Georgia Aureliano DO Work Phone: [facility] 04-28-2024 10:47-0400 Respiratory rate 18 /min Georgia Aureliano DO Work Phone: [facility] 03-11-2024 09:00-0400 Body height 167.6 cm Georgia Aureliano DO Work Phone: [facility] 03-11-2024 09:00-0400 Body mass index (BMI) [Ratio] 31.47 kg/m2 Georgia Aureliano DO Work Phone: [facility] 03-11-2024 09:00-0400 Body weight 88.45 kg Georgia Aureliano DO Work Phone: [facility] 03-11-2024 09:00-0400 Respiratory rate 20 /min Georgia Aureliano DO Work Phone: [facility] 02-05-2024 08:32-0400 Body height 167.6 cm Georgia Aureliano DO Work Phone: [facility] 02-05-2024 08:32-0400 Body mass index (BMI) [Ratio] 30.67 kg/m2 Georgia Aureliano DO Work Phone: [facility] 02-05-2024 08:32-0400 Body temperature 98.29 [degF] Georgia Aureliano DO Work Phone: [facility] 02-05-2024 08:32-0400 Body weight 86.18 kg Georgia Aureliano DO Work Phone: [facility] 02-04-2024 09:38-0400 Body height 167.6 cm La Melendez MD Work Phone: [facility] 02-04-2024 09:38-0400 Body mass index (BMI) [Ratio] 30.99 kg/m2 La Melendez MD Work Phone: [facility] 02-04-2024 09:38-0400 Body temperature 98.1 [degF] La Melendez MD Work Phone: [facility] 02-04-2024 09:38-0400 Body weight 87.09 kg La Melendez MD Work Phone: [facility] 02-04-2024 09:38-0400 Diastolic blood pressure 76 mm[Hg] La Melendez MD Work Phone: [facility] 02-04-2024 09:38-0400 Heart rate 68 /min La Melendez MD Work Phone: [facility] 02-04-2024 09:38-0400 SaO2% (BldA) [Mass fraction] 97 % La Melendez MD Work Phone: [facility] 02-04-2024 09:38-0400 Systolic blood pressure 118 mm[Hg] La Melendez MD Work Phone: [facility] 12-19-2023 09:37-0500 Body height 167.6 cm [facility] 1 [facility] 12-19-2023 09:37-0500 Body temperature 98.2 [degF] Pst 1 [facility] 12-19-2023 09:37-0500 Body weight 87.36 kg Pst 1 [facility] 12-19-2023 09:37-0500 Diastolic blood pressure 88 mm[Hg] Pst 1 [facility] 12-19-2023 09:37-0500 Heart rate 67 /min Pst 1 [facility] 12-19-2023 09:37-0500 Respiratory rate 18 /min Pst 1 [facility] 12-19-2023 09:37-0500 SaO2% (BldA) [Mass fraction] 97 % Pst 1 [facility] 12-19-2023 09:37-0500 Systolic blood pressure 144 mm[Hg] Pst 1 [facility] 12-16-2023 10:35-0500 Body height 167.6 cm La Melendez MD Work Phone: [facility] 12-16-2023 10:35-0500 Body mass index (BMI) [Ratio] 30.99 kg/m2 La Melendez MD Work Phone: [facility] 12-16-2023 10:35-0500 Body temperature 98.01 [degF] La Melendze MD Work Phone: [facility] 12-16-2023 10:35-0500 Body weight 87.09 kg La Melendez MD Work Phone: [facility] 12-16-2023 10:35-0500 Diastolic blood pressure 78 mm[Hg] La Melendez MD Work Phone: [facility] 12-16-2023 10:35-0500 Heart rate 76 /min La Melendez MD Work Phone: [facility] 12-16-2023 10:35-0500 SaO2% (BldA) [Mass fraction] 98 % La Melendez MD Work Phone: [facility] 12-16-2023 10:35-0500 Systolic blood pressure 106 mm[Hg] La Melendez MD Work Phone: [facility] 11-22-2023 08:53-0500 Body height 167.6 cm Georgia Aureliano DO Work Phone: [facility] 11-22-2023 08:53-0500 Body weight 87.09 kg Georgia Aureliano DO Work Phone: [facility] 11-22-2023 08:53-0500 Respiratory rate 18 /min Georgia Aureliano DO Work Phone: [facility] 11-03-2023 15:58-0500 Diastolic blood pressure 88 mm[Hg] [facility] 11-03-2023 15:58-0500 Heart rate 75 /min [facility] 11-03-2023 15:58-0500 Respiratory rate 16 /min [facility] 11-03-2023 15:58-0500 SaO2% (BldA) [Mass fraction] 100 % [facility] 11-03-2023 15:58-0500 Systolic blood pressure 137 mm[Hg] [facility] 11-03-2023 14:29-0500 Body height 167.64 cm [facility] 11-03-2023 14:29-0500 Body mass index (BMI) [Ratio] 31.1 kg/m2 [facility] 11-03-2023 14:29-0500 Body temperature 94.8 [degF] [facility] 11-03-2023 14:29-0500 Body weight 87.45 kg [facility] 01-28-2023 10:36-0400 Body height 167.6 cm La Melendez MD Work Phone: [facility] 01-28-2023 10:36-0400 Body mass index (BMI) [Ratio] 30.83 kg/m2 La Melendez MD Work Phone: 7(745)439-145642 [address] 01-28-2023 10:36-0400 Body temperature 98.2 [degF] La Melendez MD Work Phone: [facility] 01-28-2023 10:36-0400 Body weight 86.64 kg La Melendez MD Work Phone: [facility] 01-28-2023 10:36-0400 Diastolic blood pressure 60 mm[Hg] La Melendez MD Work Phone: [facility] 01-28-2023 10:36-0400 Heart rate 74 /min La Melendez MD Work Phone: [facility] 01-28-2023 10:36-0400 Respiratory rate 16 /min La Melendez MD Work Phone: [facility] 01-28-2023 10:36-0400 Systolic blood pressure 110 mm[Hg] La Melendez MD Work Phone: [facility] 07-23-2022 11:01-0400 Body height 167.64 cm La Melendez Work Phone: [facility] Work Phone: 07-23-2022 11:01-0400 Body mass index (BMI) [Ratio] 30.34 kg/m2 La Melendez Work Phone: [facility] Work Phone: 07-23-2022 11:01-0400 Body surface area Derived from formula 1.95 m2 La Melendez Work Phone: [facility] Work Phone: 07-23-2022 11:01-0400 Body temperature 98.5 [degF] La Melendez Work Phone: [facility] Work Phone: 07-23-2022 11:01-0400 Body weight 85.28 kg La Melendez Work Phone: [facility] Work Phone: 07-23-2022 11:01-0400 Diastolic blood pressure 64 mm[Hg] La Melendez Work Phone: [facility] Work Phone: 07-23-2022 11:01-0400 Heart rate 80 /min La Melendez Work Phone: [facility] Work Phone: 07-23-2022 11:01-0400 Respiratory rate 16 /min La Melendez Work Phone: [facility] Work Phone: 07-23-2022 11:01-0400 Systolic blood pressure 100 mm[Hg] La Melendez Work Phone: [facility] Work Phone: 04-11-2022 10:44-0400 Body height 167.64 cm La Melendez Work Phone: [facility]jjhcb[facility]xx[facility] [address] Work Phone: 04-11-2022 10:44-0400 Body mass index (BMI) [Ratio] 30.67 kg/m2 Larobert Bryantmel Work Phone: JD-Rwpgeouwa-Zsmquu [facility] [address] Work Phone: 04-11-2022 10:44-0400 Body surface area Derived from formula 1.96 m2 La Chevy Nora Work Phone: ZW-Ogbogcrxk-Qdngoe n [address] Work Phone: 04-11-2022 10:44-0400 Body temperature 98.2 [degF] La Chevy Nora Work Phone: XM-Uvgjksitq-Ctvbyn n [address] Work Phone: 04-11-2022 10:44-0400 Body weight 86.18 kg La M Nora Work Phone: EG-Meykkjhvg-Imlmwp n [address] Work Phone: 03-26-2022 10:23-0400 Body height 167.64 cm La Chevy Nora Work Phone: [facility] Work Phone: 03-26-2022 10:23-0400 Body mass index (BMI) [Ratio] 30.67 kg/m2 La Chevy Nora Work Phone: [facility] Work Phone: 03-26-2022 10:23-0400 Body surface area Derived from formula 1.96 m2 La Chevy Nora Work Phone: [facility] Work Phone: 03-26-2022 10:23-0400 Body temperature 100.1 [degF] La Melendez Work Phone: [facility] Work Phone: 03-26-2022 10:23-0400 Body weight 86.18 kg La Melendez Work Phone: [facility] Work Phone: 03-26-2022 10:23-0400 Diastolic blood pressure 60 mm[Hg] La Melendez Work Phone: [facility] Work Phone: 03-26-2022 10:23-0400 Heart rate 100 /min La Melendez Work Phone: [facility] Work Phone: 03-26-2022 10:23-0400 Systolic blood pressure 90 mm[Hg] La Melendez Work Phone: [facility] Work Phone: 02-07-2022 15:40-0400 Body height 167.64 cm La Melendez Work Phone: [facility] Work Phone: 02-07-2022 15:40-0400 Body mass index (BMI) [Ratio] 30.99 kg/m2 La Melendez Work Phone: [facility] Work Phone: 02-07-2022 15:40-0400 Body surface area Derived from formula 1.97 m2 La Melendez Work Phone: [facility] Work Phone: 02-07-2022 15:40-0400 Body temperature 98.5 [degF] La Melendez Work Phone: [facility] Work Phone: 02-07-2022 15:40-0400 Body weight 87.09 kg La Melendez Work Phone: [facility] Work Phone: 02-07-2022 15:40-0400 Diastolic blood pressure 70 mm[Hg] La Chevy Melendez Work Phone: [facility] Work Phone: 02-07-2022 15:40-0400 Heart rate 80 /min La Chevy Melendez Work Phone: [facility] Work Phone: 02-07-2022 15:40-0400 Respiratory rate 18 /min La M Nora Work Phone: [facility] Work Phone: 02-07-2022 15:40-0400 Systolic blood pressure 120 mm[Hg] La Chevy Melendez Work Phone: [facility] Work Phone: 10-26-2021 08:56-0500 Body height 167.[address] La Melendez Work Phone: [facility] Work Phone: 10-26-2021 08:56-0500 Body mass index (BMI) [Ratio] 31.1 kg/m2 Dr. La Melendez Work Phone: [facility] Work Phone: 10-26-2021 08:56-0500 Body weight 87.[address] La Melendez Work Phone: [facility] Work Phone: 10-26-2021 08:56-0500 Diastolic blood pressure 82 mm[Hg] Dr. La Melendez Work Phone: [facility] Work Phone: 10-26-2021 08:56-0500 Heart rate 61 /min Dr. La Melendez Work Phone: [facility] Work Phone: 10-26-2021 08:56-0500 Respiratory rate 18 /min Dr. La Melendez Work Phone: [facility] Work Phone: 10-26-2021 08:56-0500 SaO2% (BldA) [Mass fraction] 100 % Dr. La Melendez Work Phone: [facility] Work Phone: 10-26-2021 08:56-0500 Systolic blood pressure 136 mm[Hg] Dr. La Melendez Work Phone: [facility] Work Phone: 09-19-2021 13:53-0500 Body height 167.64 cm La Melendez Work Phone: [facility] Work Phone: 09-19-2021 13:53-0500 Body mass index (BMI) [Ratio] 31.31 kg/m2 La Melendez Work Phone: -[facility] Work Phone: 09-19-2021 13:53-0500 Body surface area Derived from formula 1.97 m2 La Melendez Work Phone: -[facility] Work Phone: 09-19-2021 13:53-0500 Body temperature 98.4 [degF] La Melendez Work Phone: -[facility] Work Phone: 09-19-2021 13:53-0500 Body weight 88 kg La Melendez Work Phone: [facility] Work Phone: 09-19-2021 13:53-0500 Diastolic blood pressure 70 mm[Hg] La Melendez Work Phone: [facility] Work Phone: 09-19-2021 13:53-0500 Heart rate 82 /min La Melendez Work Phone: [facility] Work Phone: 09-19-2021 13:53-0500 Respiratory rate 18 /min La Melendez Work Phone: [facility] Work Phone: 09-19-2021 13:53-0500 Systolic blood pressure 130 mm[Hg] La Melendez Work Phone: [facility] Work Phone: 08-18-2021 12:58-0400 Body height 167.9 cm Nubia Barlow MD Work Phone: [facility] 08-18-2021 12:58-0400 Body weight 86.18 kg Nubia Barlow MD Work Phone: [facility] 08-18-2021 12:58-0400 Diastolic blood pressure 71 mm[Hg] Nuiba Barlow MD Work Phone: [facility] 08-18-2021 12:58-0400 Heart rate 70 /min Nubia Barlow MD Work Phone: [facility] 08-18-2021 12:58-0400 Respiratory rate 14 /min Nubia Barlow MD Work Phone: [facility] 08-18-2021 12:58-0400 SaO2% (BldA) [Mass fraction] 99 % Nubia Barlow MD Work Phone: [facility] 08-18-2021 12:58-0400 Systolic blood pressure 150 mm[Hg] Nubia Barlow MD Work Phone: [facility] 08-18-2021 12:54-0400 Body height 167.9 cm Respiratory Wstr Work Phone: [facility] 08-18-2021 12:54-0400 Body weight 86.18 kg Respiratory Wstr Work Phone: [facility] 08-18-2021 12:54-0400 Heart rate 71 /min Respiratory Wstr Work Phone: [facility] 08-18-2021 12:54-0400 Respiratory rate 16 /min Respiratory Wstr Work Phone: [facility] 08-18-2021 12:54-0400 SaO2% (BldA) [Mass fraction] 99 % Respiratory Wstr Work Phone: [facility] 08-03-2021 13:35-0400 Body height 167.64 cm La Melendez Work Phone: [facility] Work Phone: 08-03-2021 13:35-0400 Body mass index (BMI) [Ratio] 30.67 kg/m2 La Melendez Work Phone: [facility] Work Phone: 08-03-2021 13:35-0400 Body surface area Derived from formula 1.96 m2 La Melendez Work Phone: [facility] Work Phone: 08-03-2021 13:35-0400 Body temperature 97.1 [degF] La Melendez Work Phone: [facility] Work Phone: 08-03-2021 13:35-0400 Body weight 86.18 kg La Melendez Work Phone: [facility] Work Phone: 08-03-2021 13:35-0400 Diastolic blood pressure 80 mm[Hg] La Melendez Work Phone: [facility] Work Phone: 08-03-2021 13:35-0400 Heart rate 90 /min La Melendez Work Phone: [facility] Work Phone: 08-03-2021 13:35-0400 Systolic blood pressure 120 mm[Hg] La Melendez Work Phone: [facility] Work Phone: 07-11-2021 09:22-0400 Body height 167.64 cm aL Melendez Work Phone: [facility] Work Phone: 07-11-2021 09:22-0400 Body mass index (BMI) [Ratio] 30.67 kg/m2 La Melendez Work Phone: -[facility] Work Phone: 07-11-2021 09:22-0400 Body surface area Derived from formula 1.96 m2 La Melendez Work Phone: -[facility] Work Phone: 07-11-2021 09:22-0400 Body temperature 98.1 [degF] La Melendez Work Phone: -[facility] Work Phone: 07-11-2021 09:22-0400 Body weight 86.18 kg La Melendez Work Phone: -[facility] Work Phone: 07-11-2021 09:22-0400 Diastolic blood pressure 62 mm[Hg] La Melendez Work Phone: [facility] Work Phone: 07-11-2021 09:22-0400 Heart rate 78 /min La Melendez Work Phone: [facility] Work Phone: 07-11-2021 09:22-0400 Respiratory rate 18 /min La Melendez Work Phone: [facility] Work Phone: 07-11-2021 09:22-0400 Systolic blood pressure 118 mm[Hg] La Melendez Work Phone: [facility] Work Phone: 05-23-2021 16:34-0400 Body height 167.64 cm La Melendez Work Phone: [facility] Work Phone: 05-23-2021 16:34-0400 Body mass index (BMI) [Ratio] 30.34 kg/m2 La Melendez Work Phone: [facility] Work Phone: 05-23-2021 16:34-0400 Body surface area Derived from formula 1.95 m2 La Melendez Work Phone: [facility] Work Phone: 05-23-2021 16:34-0400 Body temperature 98.5 [degF] La Melendez Work Phone: [facility] Work Phone: 05-23-2021 16:34-0400 Body weight 85.28 kg La Melendez Work Phone: [facility] Work Phone: 05-23-2021 16:34-0400 Diastolic blood pressure 70 mm[Hg] La Melendez Work Phone: [facility] Work Phone: 05-23-2021 16:34-0400 Heart rate 78 /min La Bryantmel Work Phone: [facility] Work Phone: 05-23-2021 16:34-0400 Respiratory rate 18 /min La Melendez Work Phone: [facility] Work Phone: 05-23-2021 16:34-0400 SaO2% (BldA) [Mass fraction] 98 % La Melendez Work Phone: [facility] Work Phone: 05-23-2021 16:34-0400 Systolic blood pressure 120 mm[Hg] La Melendez Work Phone: [facility] Work Phone: 03-21-2021 14:03-0400 Body height 168.15 cm La Melendez Work Phone: [facility] Work Phone: 03-21-2021 14:03-0400 Body mass index (BMI) [Ratio] 29.84 kg/m2 La Melendez Work Phone: [facility] Work Phone: 03-21-2021 14:03-0400 Body surface area Derived from formula 1.94 m2 La Melendez Work Phone: [facility] Work Phone: 03-21-2021 14:03-0400 Body temperature 97.9 [degF] La Melendez Work Phone: [facility] Work Phone: 03-21-2021 14:03-0400 Body weight 84.37 kg La Melendez Work Phone: [facility] Work Phone: 03-21-2021 14:03-0400 Diastolic blood pressure 68 mm[Hg] La Melendez Work Phone: [facility] Work Phone: 03-21-2021 14:03-0400 Heart rate 72 /min La Melendez Work Phone: [facility] Work Phone: 03-21-2021 14:03-0400 Respiratory rate 18 /min La Melendez Work Phone: [facility] Work Phone: 03-21-2021 14:03-0400 Systolic blood pressure 110 mm[Hg] La Melendez Work Phone: [facility] Work Phone: 11-17-2019 13:52-0500 BMI (Body Mass Index) 28.4 kg/m2 Quoc Ne [facility] Work Phone: 11-17-2019 13:52-0500 Body Temperature 98.3 [degF] Quoc Ne [facility] Work Phone: 11-17-2019 13:52-0500 Body weight 80.29 kg Quoc Ne [facility] Work Phone: 11-17-2019 13:52-0500 BP Diastolic 72 mm[Hg] Quoc Alicia [facility] Work Phone: 11-17-2019 13:52-0500 BP Systolic 110 mm[Hg] Quoc Ne [facility] Work Phone: 11-17-2019 13:52-0500 BSA (Body Surface Area) 1.9 m2 Quoc Alicia [facility] Work Phone: 11-17-2019 13:52-0500 Pulse (Heart Rate) 75 /min Quoc Alicia [facility] Work Phone: Encounters Encounter Date Encounter Type Care Provider Facility Start: 02-02-2025 End: 02-02-2025 Office outpatient visit 25 minutes La Melendez MD Work Phone: [facility] Comment on above: Routine general medi jeremi examination at a health care facility (Primary Dx); Asthma, unspecified asthma severity, unspecified whether complicated, unspecified whether persistent ([facility]); Hypothyroidism, unspecified type; Other fatigue Start: 02-02-2025 End: 02-02-2025 Patient encounter status La Melendez MD Work Phone: [facility] Work Phone: Start: 01-29-2025 End: 01-29-2025 ambulatory La Melendez Facility:[facility] Start: 01-25-2025 End: 01-25-2025 Office outpatient visit 15 minutes La Melendez MD Work Phone: [facility] Comment on above: Acute non-recurrent frontal sinusitis (Primary Dx) Start: 01-25-2025 End: 01-25-2025 ambulatory [facility] Start: 09-23-2024 End: 09-23-2024 Office outpatient visit 15 minutes La Melendez MD Work Phone: [facility] Comment on above: Dysuria Start: 09-23-2024 End: 09-23-2024 ambulatory [facility] Start: 09-23-2024 End: 09-23-2024 Patient encounter procedure Georgia Bedoya DO Work Phone: [facility] Comment on above: Primary osteoarthrit is of left hip (Primary Dx); Traumatic complete tear of right rotator cuff, subsequent encounter; S/P right rotator cuff repair Start: 09-23-2024 End: 09-23-2024 ambulatory GEORGIA BEDOYA Facility:[facility] Start: 08-26-2024 End: 08-26-2024 Subsequent hospital visit by physician Kit Sandhu110 [facility] Comment on above: Arrived Visit for screening mammogram Start: 08-26-2024 End: 08-26-2024 ambulatory [facility] Start: 08-11-2024 End: 08-11-2024 ambulatory [facility] Start: 08-06-2024 End: 08-06-2024 ambulatory Calvin White [facility] Comment on above: Traumatic complete t ear of right rotator cuff, subsequent encounter (Primary Dx) Start: 08-05-2024 End: 08-05-2024 Patient encounter procedure La Melendez MD Work Phone: [facility] Comment on above: Primary hypothyroidi sm (Primary Dx); Hypothyroidism, unspecified type; Asthma, unspecified asthma severity, unspecified whether complicated, unspecified whether persistent ([facility]); Routine general medical examination at a health care facility; Abnormal blood chemistry Start: 08-05-2024 End: 08-05-2024 Patient encounter status La Melendez MD Work Phone: [facility] Work Phone: Start: 08-05-2024 End: 08-05-2024 ambulatory [facility] Start: 08-05-2024 End: 08-05-2024 Encounter for general adult medical examination without abnormal findings [facility] Start: 07-23-2024 End: 07-23-2024 ambulatory Calvin White [facility] Comment on above: Traumatic complete t ear of right rotator cuff, subsequent encounter (Primary Dx) Start: 07-01-2024 End: 07-01-2024 ambulatory Calvin White [facility] Comment on above: Traumatic complete t ear of right rotator cuff, subsequent encounter (Primary Dx) Start: 06-24-2024 End: 06-24-2024 Patient encounter procedure Georgia Bedoya DO Work Phone: [facility] Comment on above: Primary osteoarthrit is of left hip (Primary Dx) Start: 06-24-2024 End: 06-24-2024 ambulatory [facility] Facility:[facility] Start: 06-19-2024 Encounter for genera l adult medical examination without abnormal findings [facility] Start: 06-17-2024 End: 06-17-2024 ambulatory Calvin White [facility] Comment on above: Traumatic complete t ear of right rotator cuff, subsequent encounter (Primary Dx) Start: 06-16-2024 End: 06-16-2024 Subsequent hospital visit by physician Kit Sandhu110 X-Ray 1 [facility] Comment on above: Left hip pain Start: 06-16-2024 End: 06-16-2024 ambulatory [facility] Start: 06-16-2024 End: 06-16-2024 Office outpatient visit 15 minutes La Melendez MD Work Phone: [facility] Comment on above: Left hip pain (Prima ry Dx) Start: 06-16-2024 End: 06-16-2024 ambulatory [facility] Start: 06-12-2024 End: 06-12-2024 ambulatory La Melendez Facility:[facility] Start: 06-02-2024 End: 06-02-2024 ambulatory Calvin White [facility] Comment on above: Traumatic complete t ear of right rotator cuff, subsequent encounter (Primary Dx) Start: 05-26-2024 End: 05-26-2024 ambulatory Calvin White PT [facility] Comment on above: Traumatic complete t ear of right rotator cuff, subsequent encounter (Primary Dx) Start: 05-19-2024 End: 05-19-2024 ambulatory Calvin White PT [facility] Comment on above: Traumatic complete t ear of right rotator cuff, subsequent encounter (Primary Dx) Start: 05-12-2024 End: 05-12-2024 ambulatory Sarah Jones [employer] Work Phone: [facility] Comment on above: Traumatic complete t ear of right rotator cuff, subsequent encounter (Primary Dx) Start: 05-05-2024 End: 05-05-2024 ambulatory Calvin White PT [facility] Comment on above: Traumatic complete t ear of right rotator cuff, subsequent encounter (Primary Dx) Start: 05-01-2024 End: 05-01-2024 ambulatory Calvin White PT [facility] Comment on above: Traumatic complete t ear of right rotator cuff, subsequent encounter (Primary Dx) Start: 04-28-2024 End: 04-28-2024 Patient encounter procedure Georgia Bedoya DO Work Phone: [facility] Comment on above: Traumatic complete t ear of right rotator cuff, subsequent encounter (Primary Dx); S/P right rotator cuff repair Start: 04-28-2024 End: 04-28-2024 ambulatory GEORGIA AURELIANO Facility:[facility] Start: 04-28-2024 End: 04-28-[address] [facility] [employer]ATOR Work Phone: [facility] Comment on above: Traumatic complete t ear of right rotator cuff, subsequent encounter (Primary Dx) Start: 04-17-2024 End: 04-17-2024 ambulatory [facility] Work Phone: [facility] Comment on above: Traumatic complete t ear of right rotator cuff, subsequent encounter (Primary Dx) Start: 04-14-2024 End: 04-14-2024 ambulatory Calvin White [facility] Comment on above: Traumatic complete t ear of right rotator cuff, subsequent encounter (Primary Dx) Start: 04-10-2024 End: 04-10-2024 ambulatory Calvin White [facility] Comment on above: Traumatic complete t ear of right rotator cuff, subsequent encounter (Primary Dx) Start: 04-07-2024 End: 04-07-2024 ambulatory Calvin White [facility] Comment on above: Traumatic complete t ear of right rotator cuff, subsequent encounter (Primary Dx) Start: 04-03-2024 End: 04-03-2024 ambulatory Calvin White [facility] Comment on above: Traumatic complete t ear of right rotator cuff, subsequent encounter (Primary Dx) Start: 03-31-2024 End: 03-31-2024 ambulatory [facility] Work Phone: [facility] Comment on above: Traumatic complete t ear of right rotator cuff, subsequent encounter (Primary Dx) Start: 03-25-2024 End: 03-25-2024 ambulatory Calvin White [facility] Comment on above: Traumatic complete t ear of right rotator cuff, subsequent encounter (Primary Dx) Start: 03-11-2024 End: 03-11-2024 Patient encounter procedure Georgia Bedoya DO Work Phone: [facility] Comment on above: Traumatic complete t ear of right rotator cuff, subsequent encounter (Primary Dx); S/P right rotator cuff repair Start: 03-11-2024 End: 03-11-2024 ambulatory GEORGIA AURELIANO Facility:[facility] Start: 03-10-2024 End: 03-10-2024 ambulatory Tristan Burnett PT, DPT [facility] Comment on above: Traumatic complete t ear of right rotator cuff, subsequent encounter (Primary Dx) Start: 03-06-2024 End: 03-06-2024 ambulatory Calvin White PT [facility] Comment on above: Traumatic complete t ear of right rotator cuff, subsequent encounter (Primary Dx) Start: 03-03-2024 End: 03-03-2024 ambulatory Sarah Harpereleanor [employer] INS[employer]ATOR Work Phone: [facility] Comment on above: Traumatic complete t ear of right rotator cuff, subsequent encounter (Primary Dx) Start: 02-28-2024 End: 02-28-2024 ambulatory Calvin White PT [facility] Comment on above: Traumatic complete t ear of right rotator cuff, subsequent encounter (Primary Dx) Start: 02-24-2024 End: 02-24-2024 ambulatory Sarah Jones CORK INSULATOR Work Phone: [facility] Comment on above: Traumatic complete t ear of right rotator cuff, subsequent encounter (Primary Dx) Start: 02-20-2024 End: 02-20-2024 ambulatory Calvin White PT [facility] Comment on above: Traumatic complete t ear of right rotator cuff, subsequent encounter (Primary Dx) Start: 02-12-2024 End: 02-12-2024 ambulatory Calvin White PT [facility] Comment on above: Traumatic complete t ear of right rotator cuff, subsequent encounter (Primary Dx) Start: 02-07-2024 End: 02-07-2024 ambulatory Calvin White PT [facility] Comment on above: Traumatic complete t ear of right rotator cuff, subsequent encounter (Primary Dx) Start: 02-05-2024 End: 02-05-2024 Patient encounter procedure Georgia Bedoya DO Work Phone: [facility] Comment on above: Traumatic complete t ear of right rotator cuff, subsequent encounter (Primary Dx); S/P right rotator cuff repair Start: 02-05-2024 End: 02-05-2024 ambulatory GEORGIA AURELIANO [facility] Start: 02-04-2024 End: 02-04-2024 Office outpatient visit 25 minutes La Melendez MD Work Phone: [facility] Comment on above: Routine general [facility] examination at a health care facility (Primary Dx); Asthma, unspecified asthma severity, unspecified whether complicated, unspecified whether persistent ([facility]); Hypothyroidism, unspecified type; Abnormal CBC Start: 02-04-2024 End: 02-04-2024 Patient encounter status La Melendez MD Work Phone: [facility] Work Phone: Start: 01-29-2024 End: 01-29-2024 ambulatory Calvin White PT [facility] Comment on above: Traumatic complete t ear of right rotator cuff, subsequent encounter (Primary Dx) Start: 01-29-2024 End: 01-29-2024 Patient encounter procedure [facility] [place] Work Phone: Start: 01-22-2024 End: 01-22-2024 ambulatory Calvin White PT [facility] Comment on above: Traumatic complete t ear of right rotator cuff, subsequent encounter (Primary Dx) Start: 01-15-2024 End: 01-15-2024 ambulatory Calvin White [facility] Comment on above: Traumatic complete t ear of right rotator cuff, subsequent encounter (Primary Dx) Start: 01-09-2024 End: 01-09-2024 ambulatory GEORGIA AURELIANO Facility:[facility] Start: 01-01-2024 End: 01-01-2024 ambulatory GEORGIA AURELIANO Facility:[facility] Start: 12-31-2023 Telephone encounter Georgia groves DO Work Phone: [facility] Comment on above: Preparations For Kenyatta edgar Start: 12-19-2023 End: 12-19-2023 Admission to [facility] Start: 12-19-2023 End: 12-19-2023 Preprocedural examination done Pst 1 [facility] Work Phone: Start: 12-19-2023 End: 12-19-2023 ambulatory GEORGIA BARBAOD Pre Surgical Testing Comment on above: Hypothyroidism, unsp ecified type (Primary Dx); Pre-op examination; Traumatic complete tear of right rotator cuff, subsequent encounter; Tendinopathy of right biceps tendon; Asthma, unspecified asthma severity, unspecified whether complicated, unspecified whether persistent; MTHFR mutation Start: 12-16-2023 End: 12-16-2023 Office outpatient visit 25 minutes La Melendez MD Work Phone: [facility] Comment on above: Traumatic incomplete tear of right rotator cuff, subsequent encounter (Primary Dx); Hypothyroidism, unspecified type Start: 12-13-2023 Encounter for other preprocedural examination GEORGIA JONES [facility] Start: 12-13-2023 ambulatory Georgia Presto n DO Work Phone: [facility] Comment on above: Please fill out this form for the insurance company Start: 12-13-2023 Preprocedural examination done Pst 1 [facility] Work Phone: Start: 11-26-2023 Orders Only Georgia Presto n DO Work Phone: [facility] Comment on above: Traumatic complete t ear of right rotator cuff, subsequent encounter (Primary Dx); Tendinopathy of right biceps tendon Start: 11-22-2023 End: 11-22-2023 Patient encounter procedure Georgia Aureliano DO Work Phone: [facility] Comment on above: Traumatic complete t ear of right rotator cuff, subsequent encounter (Primary Dx) Start: 11-22-2023 End: 11-22-2023 ambulatory GEORGIA AURELIANO Facility:[facility] Start: 11-13-2023 ambulatory GEORGIA AURELIANO Facilit y:[facility] Start: 11-13-2023 End: 11-13-2023 Subsequent hospital visit by physician [facility] [place] (1.5t) [facility] Comment on above: Traumatic complete t ear of right rotator cuff, initial encounter [S46.011A] Start: 11-12-2023 End: 11-12-2023 ambulatory GEORGIAHER BEDOYA Facility:[facility] Start: 11-12-2023 End: 11-12-2023 [facility] Comment on above: Right shoulder pain, unspecified chronicity [M25.511] Start: 11-03-2023 End: 11-03-2023 Emergency department patient visit [facility] Work Phone: Start: 07-23-2023 End: 07-23-2023 ambulatory [facility] Work Phone: Start: 07-23-2023 End: 07-23-2023 Patient encounter procedure [facility] [place] Work Phone: Start: 01-28-2023 End: 01-28-2023 Office outpatient visit 15 minutes La Melendez MD Work Phone: [facility] Comment on above: Routine general [facility] jeremi examination at a health care facility (Primary Dx); Hypothyroidism, unspecified type; Asthma, unspecified asthma severity, unspecified whether complicated, unspecified whether persistent Start: 01-28-2023 End: 01-28-2023 Patient encounter status La Melendez MD Work Phone: [facility] Work Phone: Start: 10-12-2022 AUDIT La Melendez Work Phone: [facility] Work Phone: Start: 08-30-2022 Chart Update La Melendez Work Phone: [facility] Work Phone: Start: 08-24-[address] La Chang Facility:[id number] Start: 08-13-2022 Chart Update La Melendez Work Phone: [facility] Work Phone: Start: 08-10-2022 Office outpatient vi sit 15 minutes La Melendez Work Phone: [facility] Work Phone: Start: 08-10-2022 Patient encounter procedure La Melendez Work Phone: [facility] Work Phone: Start: 08-10-2022 ambulatory Quoc Buenrostro ity:[id number] Start: 08-09-[address] La Chang Facility:[id number] Start: 07-23-2022 Adv care pln tlkd & alt dcsn maker docd La Melendez Work Phone: [facility] Work Phone: Start: 07-23-2022 AUDIT La Melendez Work Phone: [facility] Work Phone: Start: 07-23-[address] La Chang Facility:[id number] Start: 07-19-2022 Rx Renewal La Melendez Work Phone: [facility] Work Phone: Start: 07-18-2022 AUDIT La Melendez Work Phone: [facility] Work Phone: Start: 04-17-2022 End: 04-17-2022 Patient encounter procedure Inge Ying MD Work Phone: General Surgery Comment on above: Acute cholecystitis (Primary Dx) Start: 04-11-2022 [facility] visit new patient La Melendez Work Phone: [id number] Work Phone: Start: 04-11-[address] La Chang Facility:[id number] Start: 03-29-[address] La Chang Facility:[id number] Start: 03-28-2022 Chart Update La Melendez Work Phone: [facility] Work Phone: Start: 03-27-2022 Patient encounter procedure La Melendez Work Phone: [facility] Work Phone: Start: 03-26-2022 Office outpatient vi sit 15 minutes La Melendez Work Phone: [facility] Work Phone: Start: 03-26-2022 Patient encounter procedure La Melendez Work Phone: [facility] Work Phone: Start: 03-26-[address] La Chang Facility:[id number] Start: 03-23-2022 End: 03-23-2022 Patient encounter procedure [facility] Start: 03-20-2022 AUDIT La Melendez Work Phone: [facility] Work Phone: Start: 03-08-2022 End: 03-08-2022 ambulatory Reema Rice PT Work Phone: [facility] Comment on above: Bilateral low back p ain without sciatica, unspecified chronicity (Primary Dx) Start: 03-01-2022 End: 03-01-2022 ambulatory Reema Rice PT Work Phone: [facility] Comment on above: Bilateral low back p ain without sciatica, unspecified chronicity (Primary Dx) Start: 02-22-2022 End: 02-22-2022 ambulatory Reema Rice PT Work Phone: [facility] Comment on above: Bilateral low back p ain without sciatica, unspecified chronicity (Primary Dx) Start: 02-15-2022 End: 02-15-2022 ambulatory Reema Rice PT Work Phone: [facility] Comment on above: Bilateral low back p ain without sciatica, unspecified chronicity (Primary Dx) Start: 02-12-2022 Chart Update La Melendez Work Phone: [facility] Work Phone: Start: 02-07-[address] La Chang Facility:[id number] Start: 02-07-2022 Office outpatient vi sit 15 minutes La Melendez Work Phone: [facility] Work Phone: Start: 02-07-[address] La Chang Facility:[id number] Start: 01-23-2022 End: 01-23-[address] La Melendez Work Phone: [facility] Start: 10-26-2021 End: 10-26-[address] La Melendez Work Phone: [facility] Start: 10-02-2021 AUDIT La Melendez Work Phone: [facility] Work Phone: Start: 09-19-2021 Office outpatient vi sit 15 minutes La Melendez Work Phone: [facility] Work Phone: Start: 09-19-[address] La Chang Facility:[id number] Start: 08-18-2021 End: 08-18-2021 ambulatory Respiratory Therapist [facility] Work Phone: Pulmonary Medicine Comment on above: Spirometry Start: 08-18-2021 End: 08-18-2021 Patient encounter procedure Respiratory Therapist [facility] Work Phone: [facility] Start: 08-18-2021 End: 08-18-2021 ambulatory Respiratory Therapist [facility] Work Phone: Pulmonary Medicine Comment on above: Spirometry Start: 08-18-2021 End: 08-18-2021 Patient encounter procedure Respiratory Therapist [facility] Work Phone: [facility] Comment on above: SOB (shortness of br eath) (Primary Dx); Exercise-induced asthma; H/O seasonal allergies Start: 08-04-2021 Chart Update La Melendez Work Phone: [employer] [facility] Work Phone: Start: 08-03-2021 Office outpatient vi sit 15 minutes La Melendez Work Phone: [email or web address] [facility] Work Phone: Start: 08-03-2021 Patient encounter procedure La Melendez Work Phone: [email or web address] [facility] Work Phone: Start: 07-11-2021 Office outpatient vi sit 25 minutes La Melendez Work Phone: [facility] Work Phone: Start: 07-11-2021 Patient encounter procedure La Melendez Work Phone: [facility] Work Phone: Start: 05-23-2021 Office outpatient vi sit 25 minutes La Melendez Work Phone: [facility] Work Phone: Start: 03-21-2021 Patient encounter procedure La Melendez Work Phone: [facility] Work Phone: Start: 03-15-2021 AUDIT La Melendez Work Phone: [facility] Work Phone: Start: 11-17-2019 Patient encounter procedure Quoc Mckinney [facility] Work Phone: Start: 09-14-2019 Patient encounter procedure Quoc Mckinney [facility] Work Phone: Start: 08-06-2019 Patient encounter procedure Quoc Mckinney [facility] Work Phone: Start: 08-05-2018 Patient encounter procedure Quoc [facility] [facility] Work Phone: Start: 07-25-2018 Patient encounter procedure Quocdayana Mckinney [facility] Work Phone: Start: 07-11-2018 Patient encounter procedure Quocdayaan Mckinney [facility] Work Phone: Start: 07-03-2018 Patient encounter procedure Quocdayana Mckinney [facility] Work Phone: Start: 06-24-2018 Patient encounter procedure Quocdayana Mckinney [facility] Work Phone: Start: 12-24-2017 Patient encounter procedure Quoc Mckinney [facility] Work Phone: Procedures Date Procedure Procedure Detail Performing Clinician Start: 09-23-2024 Urnls dip stick/tabl et rgnt auto w/o microscopy La Melendez MD Work Phone: Start: 08-26-2024 Dxa bone density nettie dy 1/> sites axial skel La Melendez MD Work Phone: Start: 08-26-2024 Mammography La buck MD Work Phone: Start: 11-13-2023 Mri any jt upper ext remity w/o contrast matrl Georgia Aureliano DO Work Phone: Start: 11-12-2023 Radex shoulder compl ete minimum 2 views Georgia Aureliano DO Work Phone: Start: 11-03-2023 Plain X-ray of shoulder Start: 09-04-2023 Mammography La buck MD Work Phone: Start: 01-22-2023 Thyrotropin [Units/v olume] in Serum or Plasma La Melendez MD Work Phone: Start: 08-09-2022 Mammography La buck MD Work Phone: Start: 08-18-2021 Nitric oxide gas determination Nubia Barlow MD Work Phone: Start: 08-18-2021 Brncdilat rspse spmt ry pre&post-brncdilat admn Nubia Barlow MD Work Phone: Start: 11-17-2019 MG Breast screening Jeffrey Mckinney Start: 10-27-2015 Colonoscopy La buck MD Work Phone: Start: 11-07-2006 Mammography Respirator y Wstr Work Phone: Start: 10-25-2005 Lipid 1996 panel - S dulce or Plasma Georgia Aureliano DO Work Phone: Appendectomy Quoc Mckinney Cholecystectomy La buck Work Phone: Colonoscopy La Melendez Work Phone: Comment on above: 2015 due 2025; History of repair of musculotendinous cuff of shoulder S/P right rotator cuff repair Georgia Aureliano DO Work Phone: History of repair of musculotendinous cuff of shoulder S/P right rotator cuff repair Georgia Aureliano DO Work Phone: History of repair of musculotendinous cuff of shoulder S/P right rotator cuff repair Georgia Aureliano DO Work Phone: History of repair of musculotendinous cuff of shoulder S/P right rotator cuff repair Georgia Aureliano DO Work Phone: History of Salpingec yahaira For Ectopic Qouc Mckinney History of Surgery I ncision And Drainage Of Abscess Retropharygeal Intraoral Approach Quoc Mckinney Hysterectomy Quoc Mckinney Plan of Treatment Date Care Activity Detail Author Start: 03-25-2030 DTaP/Tdap/Td Vaccines (3 - Td or Tdap) DTaP/Tdap/Td Vaccines (3 - Td or Tdap) [facility] Start: 03-25-2030 Urine microalbumin profile DTaP,Tdap,Td Vaccine (3 - Td or Tdap) [facility] Start: 12-18-2026 Diabetes Screening Diabetes Screening [facility] Start: 10-27-2025 Screening for malignant neoplasm of colon [facility] Start: 08-26-2025 Screening for malignant neoplasm of breast [facility] Start: 08-10-2025 End: 08-10-2025 Patient encounter procedure 08/10/2025 2:00 PM EDT Office Visit [facility] [address] [place] [phone] La Melendez MD [address] [facility] [address] [place], [place] [phone] [facility] Start: 08-06-2025 Medicare Annual Wellness Visit Medicare Annual Wellness Visit (AWV) [facility] Start: 07-15-2025 End: 02-02-2026 CBC W Auto Differential panel - Blood CBC and Auto Differential Lab Routine Routine general medical examination at a health care facility Other fatigue Expected: 07/15/2025, Expires: 02/02/2026 [facility] Work Phone: Comment on above: Expected: 07/15/2025, Expires: Start: 07-15-2025 End: 02-02-2026 Comprehensive metabolic 2000 panel - Serum or Plasma Comprehensive Metabolic Panel Lab Routine Routine general medical examination at a health care facility Expected: 07/15/2025, Expires: 02/02/2026 [facility] Work Phone: Comment on above: Expected: 07/15/2025, Expires: Start: 07-15-2025 End: 02-02-2026 Lipid 1996 panel - Serum or Plasma Lipid Panel Lab Routine Routine general medical examination at a health care facility Expected: 07/15/2025, Expires: 02/02/2026 [facility] Work Phone: Comment on above: Expected: 07/15/2025, Expires: Start: 07-15-2025 End: 02-02-2026 Thyrotropin [Units/volume] in Serum or Plasma Thyroid Stimulating Hormone Lab Routine Hypothyroidism, unspecified type Routine general medical examination at a health care facility Expected: 07/15/2025, Expires: 02/02/2026 [facility] Service Area Work Phone: Comment on above: Expected: 07/15/2025, Expires: Start: 07-15-2025 End: 02-02-2026 Thyroxine (T4) free [Mass/volume] in Serum or Plasma Thyroxine, Free Lab Routine Hypothyroidism, unspecified type Routine general medical examination at a health care facility Expected: 07/15/2025, Expires: 02/02/2026 [facility] Work Phone: Comment on above: Expected: 07/15/2025, Expires: Start: 07-15-2025 End: 02-02-2026 Triiodothyronine (T3) Free [Mass/volume] in Serum or Plasma Triiodothyronine, Free Lab Routine Hypothyroidism, unspecified type Routine general medical examination at a health care facility Expected: 07/15/2025, Expires: 02/02/2026 [facility] Work Phone: Comment on above: Expected: 07/15/2025, Expires: Start: 03-27-2025 DIABETES SCREEN DIABETES SCREEN [facility] Start: 03-27-2025 Diabetes Screening Diabetes Screening [facility] Start: 02-03-2025 End: 08-05-2025 Basic metabolic 2000 panel - Serum or Plasma Basic metabolic panel Lab Routine Abnormal blood chemistry Expected: 02/03/2025, Expires: 08/05/2025 [facility] Work Phone: Comment on above: Expected: 02/03/2025, Expires: Start: 02-03-2025 End: 08-05-2025 Thyrotropin [Units/volume] in Serum or Plasma Thyroid Stimulating Hormone Lab Routine Primary hypothyroidism Expected: 02/03/2025, Expires: 08/05/2025 [facility] Service Area Work Phone: Comment on above: Expected: 02/03/2025, Expires: Start: 02-03-2025 End: 08-05-2025 Thyroxine (T4) free [Mass/volume] in Serum or Plasma Thyroxine, Free Lab Routine Primary hypothyroidism Expected: 02/03/2025, Expires: 08/05/2025 [facility] Work Phone: Comment on above: Expected: 02/03/2025, Expires: Start: 02-03-2025 End: 08-05-2025 Triiodothyronine (T3) Free [Mass/volume] in Serum or Plasma Triiodothyronine, Free Lab Routine Primary hypothyroidism Expected: 02/03/2025, Expires: 08/05/2025 [facility] Work Phone: Comment on above: Expected: 02/03/2025, Expires: Start: 02-02-2025 End: 02-02-2025 Patient encounter procedure 02/02/2025 9:30 AM EDT Office Visit [facility] [address] [phone] La Melendez MD [address] [facility] [address] [place] [address] [facility] Start: 09-26-2024 COVID-19 Vaccine ( season) COVID-19 Vaccine ( season) [facility] Start: 09-26-2024 COVID-19 Vaccine ( season) COVID-19 Vaccine ( season) [facility] Start: 09-23-2024 End: 09-23-2024 Patient encounter procedure 09/23/2024 10:15 AM EST Office Visit [facility] [address] [place] [address] Georgia Bedoya, [address] [place] [address] RIGHT SHOULDER [facility] Comment on above: RIGHT SHOULDER Start: 09-04-2024 Screening for malignant neoplasm of breast Mammogram [facility] Start: 08-06-2024 End: 08-06-2024 Patient encounter procedure 08/06/2024 10:45 AM EDT OT/PT/Speech Visit [facility] [address] [place] [address] Calvin White, PT CONSULT POST OP ROTATOR CUFF TEAR [facility] Comment on above: CONSULT POST OP ROTATOR CUFF TEAR Start: 08-05-2024 End: 08-05-2024 Patient encounter procedure 08/05/2024 9:45 AM EDT Office Visit [facility] [address] [facility] [address] [place] [phone] La Melendez MD [address] [facility] [address] [place] [address] [facility] Start: 07-31-2024 Medicare Annual Wellness Visit Medicare Annual Wellness Visit (AWV) [facility] Start: 07-23-2024 End: 07-23-2024 Patient encounter procedure 07/23/2024 10:45 AM EDT OT/PT/Speech Visit [facility] [address] [place] [address] Calvin White PT CONSULT POST OP ROTATOR CUFF TEAR [facility] Comment on above: CONSULT POST OP ROTATOR CUFF TEAR Start: 07-03-2024 End: 07-03-2024 Documentation procedure 07/03/2024 Plan of Care Documentation [facility] [address] [place] [address] Janelle [facility] Start: 07-01-2024 End: 07-01-2024 Patient encounter procedure 07/01/2024 8:15 AM EDT OT/PT/Speech Visit [facility] [address] [place] [address] Calvin White PT CONSULT POST OP ROTATOR CUFF TEAR [facility] Comment on above: CONSULT POST OP ROTATOR CUFF TEAR Start: 06-24-2024 End: 06-24-2024 Patient encounter procedure 06/24/2024 10:15 AM EDT Office Visit [facility] [address] [place] [address] Georgia Bedoya DO [address] [facility] [address] [place] [address] RTC [facility] Comment on above: RTC Start: 06-17-2024 End: 06-17-2024 Patient encounter procedure 06/17/2024 8:15 AM EDT OT/PT/Speech Visit [facility] [address] [place] [address] Calvin White PT CONSULT POST OP ROTATOR CUFF TEAR [facility] Comment on above: CONSULT POST OP ROTATOR CUFF TEAR Start: 06-16-2024 Subsequent hospital visit by physician 06/16/2024 3:24 PM EDT Hospital Encounter [facility] [address] [place] [phone] Left hip pain [facility] Comment on above: Left hip pain Start: 06-16-2024 End: 06-16-2025 XR Hip Views [facility] Service Area Work Phone: Comment on above: Expected: 06/16/2024, Expires: Once for 1 Occurrenc es starting 06/16/2024 until 06/16/2024 Start: 06-14-2024 Covid-19 Vaccine ( season) Covid-19 Vaccine ( season) [facility] Start: 06-14-2024 Influenza vaccination Influenza Vaccine (#1) [facility] Start: 06-04-2024 End: 06-04-2024 Patient encounter procedure 06/04/2024 9:15 AM EDT OT/PT/Speech Visit [facility] [address] [place] [address] Calvin White PT CONSULT POST OP ROTATOR CUFF TEAR [facility] Comment on above: CONSULT POST OP ROTATOR CUFF TEAR Start: 06-02-2024 End: 06-02-2024 Patient encounter procedure 06/02/2024 9:15 AM EDT OT/PT/Speech Visit [facility] [address] [place] [address] Calvin White PT CONSULT POST OP ROTATOR CUFF TEAR [facility] Comment on above: CONSULT POST OP ROTATOR CUFF TEAR Start: 05-29-2024 End: 05-29-2024 Patient encounter procedure 05/29/2024 9:30 AM EDT OT/PT/Speech Visit [facility] [address] [place] [address] Sarah Jones, CORK INSULATOR [address] [place] [address] CONSULT POST OP ROTATOR CUFF TEAR [facility] Comment on above: CONSULT POST OP ROTATOR CUFF TEAR Start: 05-26-2024 End: 05-26-2024 Patient encounter procedure 05/26/2024 9:15 AM EDT OT/PT/Speech Visit [facility] [address] [place] [address] Calvin White PT CONSULT POST OP ROTATOR CUFF TEAR [facility] Comment on above: CONSULT POST OP ROTATOR CUFF TEAR Start: 05-21-2024 End: 05-21-2024 Patient encounter procedure 05/21/2024 9:30 AM EDT OT/PT/Speech Visit [facility] [address] [place] [address] Sarah Jones, CORK INSULATOR [address] [place] [address] CONSULT POST OP ROTATOR CUFF TEAR [facility] Comment on above: CONSULT POST OP ROTATOR CUFF TEAR Start: 05-19-2024 End: 05-19-2024 Patient encounter procedure 05/19/2024 9:15 AM EDT OT/PT/Speech Visit [facility] [address] [place] [address] Calvin White PT CONSULT POST OP ROTATOR CUFF TEAR [facility] Comment on above: CONSULT POST OP ROTATOR CUFF TEAR Start: 05-15-2024 End: 05-15-2024 Patient encounter procedure 05/15/2024 8:00 AM EDT OT/PT/Speech Visit [facility] [address] [place] [address] Sarah Jones, CORK INSULATOR [address] [place] [address] CONSULT POST OP ROTATOR CUFF TEAR [facility] Comment on above: CONSULT POST OP ROTATOR CUFF TEAR Start: 05-12-2024 End: 05-12-2024 Patient encounter procedure 05/12/2024 8:00 AM EDT OT/PT/Speech Visit [facility] [address] [place] [address] Sarah Jones, CORK INSULATOR [address] [place] [address] CONSULT POST OP ROTATOR CUFF TEAR [facility] Comment on above: CONSULT POST OP ROTATOR CUFF TEAR Start: 05-06-2024 End: 05-06-2024 Patient encounter procedure 05/06/2024 9:15 AM EDT Office Visit [facility] [address] [place] [address] Georgia Bedoya DO [address] [place] [address] 2 [place] [address] RT RCR f/u [facility] Comment on above: RT RCR f/u Start: 05-05-2024 End: 05-05-2024 Patient encounter procedure 05/05/2024 9:15 AM EDT OT/PT/Speech Visit [facility] [address] [place] [address] Calvin White PT CONSULT POST OP ROTATOR CUFF TEAR [facility] Comment on above: CONSULT POST OP ROTATOR CUFF TEAR Start: 05-01-2024 End: 05-01-2024 Patient encounter procedure 05/01/2024 10:30 AM EDT OT/PT/Speech Visit [facility] [address] [place] [address] Calvin White PT CONSULT POST OP ROTATOR CUFF TEAR [facility] Comment on above: CONSULT POST OP ROTATOR CUFF TEAR Start: 04-28-2024 End: 04-28-2024 Patient encounter procedure 04/28/2024 11:15 AM EDT Office Visit [facility] [address] [place] [phone] Georgia Bedoya DO [address] [place] [address] 2 [place] [address] RT RCR f/u [facility] Comment on above: RT RCR f/u Start: 04-28-2024 End: 04-28-2024 Patient encounter procedure 04/28/2024 8:45 AM EDT OT/PT/Speech Visit [facility] [address] [place] [address] Sarah Jones, CORK INSULATOR [address] [place] [address] CONSULT POST OP ROTATOR CUFF TEAR [facility] Comment on above: CONSULT POST OP ROTATOR CUFF TEAR Start: 04-17-2024 End: 04-17-2024 Patient encounter procedure 04/17/2024 8:45 AM EDT OT/PT/Speech Visit [facility] [address] [place] [address] Sarah Jones, CORK INSULATOR [address] [place] [address] CONSULT POST OP ROTATOR CUFF TEAR [facility] Comment on above: CONSULT POST OP ROTATOR CUFF TEAR Start: 04-14-2024 End: 04-14-2024 Patient encounter procedure [facility] Comment on above: CONSULT POST OP ROTATOR CUFF TEAR Start: 04-10-2024 End: 04-10-2024 Patient encounter procedure 04/10/2024 9:00 AM EDT OT/PT/Speech Visit [facility] [address] [place] [address] Calvin White PT CONSULT POST OP ROTATOR CUFF TEAR [facility] Comment on above: CONSULT POST OP ROTATOR CUFF TEAR Start: 04-07-2024 End: 04-07-2024 Patient encounter procedure 04/07/2024 9:15 AM EDT OT/PT/Speech Visit [facility] [address] [place] [address] Calvin White PT CONSULT POST OP ROTATOR CUFF TEAR [facility] Comment on above: CONSULT POST OP ROTATOR CUFF TEAR Start: 04-03-2024 End: 04-03-2024 Patient encounter procedure 04/03/2024 9:00 AM EDT OT/PT/Speech Visit [facility] [address] [place] [address] Calvin White PT CONSULT POST OP ROTATOR CUFF TEAR [facility] Comment on above: CONSULT POST OP ROTATOR CUFF TEAR Start: 03-31-2024 End: 03-31-2024 Patient encounter procedure 03/31/2024 8:45 AM EDT OT/PT/Speech Visit [facility] [address] [place] [address] Sarah Jones, CORK INSULATOR [address] [place] [address] CONSULT POST OP ROTATOR CUFF TEAR [facility] Comment on above: CONSULT POST OP ROTATOR CUFF TEAR Start: 03-25-2024 End: 03-25-2024 Patient encounter procedure 03/25/2024 10:30 AM EDT OT/PT/Speech Visit [facility] [address] [place] [address] Calvin White, PT CONSULT POST OP ROTATOR CUFF TEAR [facility] Comment on above: CONSULT POST OP ROTATOR CUFF TEAR Start: 03-11-2024 End: 03-11-2024 Patient encounter procedure 03/11/2024 9:15 AM EDT Office Visit [facility] [address] [place] [address] Georgia Bedoya DO [address] [place] [address] RT RCR PO SX 01-01-24 [facility] Comment on above: RT RCR PO SX 01-01-24 Start: 03-10-2024 End: 03-10-2024 Patient encounter procedure 03/10/2024 10:30 AM EDT OT/PT/Speech Visit [facility] [address] [place] [address] Tristan Burnett, PT, DPT CONSULT POST OP ROTATOR CUFF TEAR [facility] Comment on above: CONSULT POST OP ROTATOR CUFF TEAR Start: 03-06-2024 End: 03-06-2024 Patient encounter procedure 03/06/2024 1:00 PM EDT OT/PT/Speech Visit [facility] [address] [place] [address] Calvin White, PT CONSULT POST OP ROTATOR CUFF TEAR [facility] Comment on above: CONSULT POST OP ROTATOR CUFF TEAR Start: 03-03-2024 End: 03-03-2024 Patient encounter procedure 03/03/2024 8:00 AM EDT OT/PT/Speech Visit [facility] [address] [place] [address] Sarah Jones, CORK INSULATOR [address] [place] [address] CONSULT POST OP ROTATOR CUFF TEAR [facility] Comment on above: CONSULT POST OP ROTATOR CUFF TEAR Start: 02-28-2024 End: 02-28-2024 Patient encounter procedure 02/28/2024 8:15 AM EDT OT/PT/Speech Visit [facility] [address] [place] [address] Calvin White, PT CONSULT POST OP ROTATOR CUFF TEAR [facility] Comment on above: CONSULT POST OP ROTATOR CUFF TEAR Start: 02-24-2024 End: 02-24-2024 Patient encounter procedure 02/24/2024 2:00 PM EDT OT/PT/Speech Visit [facility] [address] [place] [address] Sarah Jones, [facility] [address] [place] [address] CONSULT POST OP ROTATOR CUFF TEAR [facility] Comment on above: CONSULT POST OP ROTATOR CUFF TEAR Start: 02-20-2024 End: 02-20-2024 Patient encounter procedure 02/20/2024 10:45 AM EDT OT/PT/Speech Visit [facility] [address] [place] [address] Calvin White, PT CONSULT POST OP ROTATOR CUFF TEAR [facility] Comment on above: CONSULT POST OP ROTATOR CUFF TEAR Start: 02-12-2024 End: 02-12-2024 Patient encounter procedure 02/12/2024 8:15 AM EDT OT/PT/Speech Visit [facility] [address] [place] [address] Calvin White, PT CONSULT POST OP ROTATOR CUFF TEAR [facility] Comment on above: CONSULT POST OP ROTATOR CUFF TEAR Start: 02-04-2024 End: 02-03-2025 CBC W Auto Differential panel - Blood CBC and Auto Differential Lab Routine Routine general medical examination at a [facility] Abnormal CBC Expected: 02/04/2024 (Approximate), Expires: 02/03/2025 [facility] Service Area Work Phone: Comment on above: Expected: 02/04/2024 (Approximate), Expi res: 02/03/2025 Start: 02-04-2024 End: 02-03-2025 Comprehensive metabolic 2000 panel - Serum or Plasma Comprehensive Metabolic Panel Lab Routine Routine general medical examination at a health care facility Expected: 02/04/2024 (Approximate), Expires: 02/03/2025 [facility] Work Phone: Comment on above: Expected: 02/04/2024 (Approximate), Expi res: 02/03/2025 Start: 02-04-2024 End: 02-03-2025 Lipid 1996 panel - Serum or Plasma Lipid Panel Lab Routine Routine general medical examination at a health care facility Expected: 02/04/2024 (Approximate), Expires: 02/03/2025 [facility] Work Phone: Comment on above: Expected: 02/04/2024 (Approximate), Expi res: 02/03/2025 Start: 02-04-2024 End: 02-03-2025 Thyrotropin [Units/volume] in Serum or Plasma Thyroid Stimulating Hormone Lab Routine Hypothyroidism, unspecified type Routine general medical examination at a health care facility Expected: 02/04/2024 (Approximate), Expires: 02/03/2025 [facility] Work Phone: Comment on above: Expected: 02/04/2024 (Approximate), Expi res: 02/03/2025 Start: 02-04-2024 End: 02-03-2025 Thyroxine (T4) free [Mass/volume] in Serum or Plasma Thyroxine, Free Lab Routine Hypothyroidism, unspecified type Routine general medical examination at a health care facility Expected: 02/04/2024 (Approximate), Expires: 02/03/2025 [facility] Work Phone: Comment on above: Expected: 02/04/2024 (Approximate), Expi res: 02/03/2025 Start: 02-04-2024 End: 02-03-2025 Triiodothyronine (T3) Free [Mass/volume] in Serum or Plasma Triiodothyronine, Free Lab Routine Hypothyroidism, unspecified type Routine general medical examination at a health care facility Expected: 02/04/2024 (Approximate), Expires: 02/03/2025 [facility] Work Phone: Comment on above: Expected: 02/04/2024 (Approximate), Expi res: 02/03/2025 Start: 02-04-2024 End: 02-04-2024 Patient encounter procedure 02/04/2024 9:30 AM EDT Office Visit [facility] [address] [place] [phone] La Melendez MD [address] [facility] [address] [place], [place] [phone] [facility] Start: 01-23-2024 Thyroid stimulating hormone measurement TSH Level [facility] Start: 11-17-2023 Covid-19 Vaccine () Covid-19 Vaccine () [facility] Start: 11-03-2023 [facility] Start: 10-14-2023 Advance Directive Discussion Advance Directive Discussion [facility] Start: 10-14-2023 Behavioral Health Screening Behavioral Health Screening [facility] Start: 10-14-2023 Depression Assessment Depression Assessment [facility] Start: 08-09-2023 Screening for malignant neoplasm of breast [facility] Start: 07-30-2023 End: 01-29-2024 CBC W Auto Differential panel - Blood CBC and Auto Differential Lab Routine Hypothyroidism, unspecified type Routine general medical examination at a health care facility Expected: 07/30/2023, Expires: 01/29/2024 [facility] Service Area Work Phone: Comment on above: Expected: 07/30/2023, Expires: Start: 07-30-2023 End: 01-29-2024 Comprehensive metabolic 2000 panel - Serum or Plasma Comprehensive Metabolic Panel Lab Routine Hypothyroidism, unspecified type Routine general medical examination at a health care facility Expected: 07/30/2023, Expires: 01/29/2024 [facility] Work Phone: Comment on above: Expected: 07/30/2023, Expires: Start: 07-30-2023 End: 01-29-2024 Lipid 1996 panel - Serum or Plasma Lipid Panel Lab Routine Hypothyroidism, unspecified type Routine general medical examination at a health care facility Expected: 07/30/2023, Expires: 01/29/2024 [facility] Work Phone: Comment on above: Expected: 07/30/2023, Expires: 4 Start: 07-30-2023 End: 01-29-2024 Thyrotropin [Units/volume] in Serum or Plasma Thyroid Stimulating Hormone Lab Routine Hypothyroidism, unspecified type Routine general medical examination at a health care facility Expected: 07/30/2023, Expires: 01/29/2024 [facility] Work Phone: Comment on above: Expected: 07/30/2023, Expires: Start: 07-30-2023 End: 01-29-2024 Thyroxine (T4) free [Mass/volume] in Serum or Plasma Thyroxine, Free Lab Routine Hypothyroidism, unspecified type Routine general medical examination at a health care facility Expected: 07/30/2023, Expires: 01/29/2024 [facility] Work Phone: Comment on above: Expected: 07/30/2023, Expires: 4 Start: 07-30-2023 End: 01-29-2024 Triiodothyronine (T3) Free [Mass/volume] in Serum or Plasma Triiodothyronine, Free Lab Routine Hypothyroidism, unspecified type Routine general medical examination at a health care facility Expected: 07/30/2023, Expires: 01/29/2024 [facility] Work Phone: Comment on above: Expected: 07/30/2023, Expires: 4 Start: 07-30-2023 End: 07-30-2023 Patient encounter procedure 07/30/2023 9:30 AM EDT [facility] [address] [phone] La Melendez MD [address] [facility] [address] [place] [address] [facility] Start: 01-28-2023 FUV, Provider: La Melendez, Status: Pen, Time: 10:00 AM FUV, Provider: La Melendez, Status: Pen, Time: 10:00 AM [facility] Work Phone: Start: 08-20-2022 COVID-19 Vaccine (5 - Booster for Moderna series) COVID-19 Vaccine (5 - Booster for Moderna series) [facility] Start: 07-23-2022 Patient encounter procedure MCRANNUAL, Provider: La Melendez, Status: Pen, Time: 10:30 AM [facility] Work Phone: Start: 06-14-2022 Influenza vaccination INFLUENZA (#1) [facility] Start: 04-11-2022 NPV, Provider: Kacey Patterson, Status: Pen, Time: 11:20 AM NPV, Provider: Kacey Patterson, Status: Pen, Time: 11:20 AM [facility] Work Phone: Start: 04-11-2022 DUALAUDIO, Provider: Froylan Hinojosa, Status: Pen, Time: 10:00 AM DUALAUDIO, Provider: Froylan Hinojosa, Status: Pen, Time: 10:00 AM [facility] Work Phone: Start: 03-27-2022 Patient encounter procedure MCRANNUAL, Provider: La Melendez, Status: Pen, Time: 1:15 PM [facility] Work Phone: Start: 10-25-2021 Shingrix Vaccine (3 of 3) Shingrix Vaccine (3 of 3) [facility] Start: 10-25-2021 Zoster Vaccines (3 of 3) Zoster Vaccines (3 of 3) [facility] Start: 10-14-2021 ADVANCE DIRECTIVE DISCUSSION ADVANCE DIRECTIVE DISCUSSION [facility] Start: 09-19-2021 FUV, Provider: La Melendez, Status: Pen, Time: 1:30 PM FUV, Provider: La Melendez, Status: Pen, Time: 1:30 PM [facility] Work Phone: Start: 08-03-2021 FUV, Provider: Quoc Mckinney, Status: Pen, Time: 1:30 PM FUV, Provider: Quoc Mckinney, Status: Pen, Time: 1:30 PM [facility] Work Phone: Start: 07-11-2021 FUV, Provider: La Melendez, Status: Pen, Time: 9:00 AM FUV, Provider: La Melendez, Status: Pen, Time: 9:00 AM [facility] Work Phone: Start: 03-21-2021 MCRINITIAL, Provider: La Melendez, Status: Pen, Time: 1:30 PM MCRINITIAL, Provider: La Melendez, Status: Pen, Time: 1:30 [facility] Work Phone: Start: 2020 ADVANCE DIRECTIVE DISCUSSION ADVANCE DIRECTIVE DISCUSSION [facility] Start: 2020 BONE DENSITY BONE DENSITY [facility] Start: 2020 PNEUMOCOCCAL: 65+ (1 - PCV) PNEUMOCOCCAL: 65+ (1 - PCV) [facility] Start: 2020 PNEUMOVAX AGE 65 AND OVER WITH 5YR LOOKBACK (#1) PNEUMOVAX AGE 65 AND OVER WITH 5YR LOOKBACK (#1) [facility] Start: 2020 Screening for osteoporosis Bone Density Screening [facility] Start: 07-24-2017 Pneumococcal Vaccine: 65+ Years (2 - PCV) Pneumococcal Vaccine: 65+ Years (2 - PCV) [facility] Start: 10-27-2016 Screening for malignant neoplasm of colon [facility] Start: 09-15-2014 Urine microalbumin profile DTAP,TDAP,TD (2 - Tdap) [facility] Start: 10-25-2010 Lipid panel Lipid Screening [facility] Start: 10-25-2010 LIPID SCREEN LIPID SCREEN [facility] Start: 10-25-2008 DIABETES SCREEN DIABETES SCREEN [facility] Start: 05-19-2008 COLORECTAL CANCER SCREENING COLORECTAL CANCER SCREENING [facility] Start: 05-19-2008 FECAL OCCULT BLOOD FECAL OCCULT BLOOD [facility] Start: 05-19-2008 Screening for malignant neoplasm of colon [facility] Start: 11-07-2007 Mammography MAMMOGRAM [facility] Start: 11-07-2007 Screening for malignant neoplasm of breast Mammogram Screening [facility] Start: 2005 SHINGRIX VACCINE (1 of 2) SHINGRIX VACCINE (1 of 2) [facility] Start: 2000 COLOGUARD (FIT-DNA) COLOGUARD (FIT-DNA) [facility] Start: 2000 Colonoscopy COLONOSCOPY [facility] Start: [address] COLONOGRAPHY [facility] Start: 2000 Screening for malignant neoplasm of colon [facility] Start: 2000 SIGMOIDOSCOPY SIGMOIDOSCOPY [facility] Start: 1973 Annual PCP Team Chronic Disease Visit Annual PCP Team Chronic Disease Visit [facility] Start: 1973 Anxiety Screening Anxiety Screening [facility] Start: 1973 Depression Screening Depression Screening [facility] Start: 1973 Diabetes mellitus screening Diabetes Screening [facility] Start: 1973 HEPATITIS C SCREENING HEPATITIS C SCREENING [facility] Start: 1973 Hepatitis C screening Hepatitis C Screening [facility] Start: 1967 Adult depression screening assessment DEPRESSION SCREENING [facility] Start: 1955 Lipid panel Lipid Panel [facility] Start: 1955 Medicare Annual Wellness Visit Medicare Annual Wellness Visit (AWV) [facility] Start: 1955 Screening for malignant neoplasm of colon [facility] Bacteria identified in Urine by Culture Urine Culture Microbiology Routine Dysuria 09/23/2024 3:19 PM EST [facility] Service Area Work Phone: End: 08-26-2024 DBT Breast - bilateral [facility] Work Phone: Comment on above: Once for 1 Occurrences starting 08/26/20 24 until 08/26/2024 Patient Education ED Contusion, Upper Extremity [place] [facility] Work Phone: Patient referral [facility] Work Phone: [facility] Immunizations Immunization Date Immunization Notes Care Provider Avni mittal 08-01-2024 influenza, seasonal, injectable La Melendez MD Work Phone: [facility] Work Phone: 08-01-2024 Moderna SARS-CoV-2 Vaccination La Melendez MD Work Phone: [facility] Work Phone: 02-17-2024 Moderna COVID-19 vaccine, 12 years and older (50mcg/0.5mL)(Spikevax) La Melendez MD Work Phone: [facility] Work Phone: 09-23-2023 RESPIRATORY SYNCYTIA L VIRUS (RSV), ELIGIBLE PTS, 0.5 ML (ABRYSVO) La Melendez MD Work Phone: [facility] Work Phone: 07-17-2023 Influenza, Seasonal, Quadrivalent, Adjuvanted La Melendez MD Work Phone: [facility] Work Phone: 07-17-2023 Pfizer COVID-19 vaccine, Fall 2022, 12 years and older, (30mcg/0.3mL) La Melendez MD Work Phone: [facility] Work Phone: 07-17-2023 influenza virus vaccine, unspecified formulation Calvin White PT [facility] 08-10-2022 Prevnar 20 0.5 ML Intramuscular Suspension Prefilled Syringe; Translations: [Prevnar 20 0.5 ML Intramuscular Suspension Prefilled Syringe] La Melendez Work Phone: [facility] Work Phone: Comment on above: Series: 06-25-2022 influenza, high dose seasonal, preservative-free La Melendez Work Phone: [facility] Work Phone: 06-25-2022 Moderna COVID-19 Biv al Booster 50 MCG/0.5ML Intramuscular Suspension La Chevy Melendez Work Phone: [facility] 02-19-2022 Moderna COVID-19 Vaccine 100 MCG/0.5ML Intramuscular Suspension La Melendez Work Phone: [facility] Work Phone: 08-30-2021 zoster vaccine recombinant La Melendez Work Phone: [facility] Work Phone: 08-11-2021 Pfizer-BioNTech COVID-19 Vacc 30 MCG/0.3ML Intramuscular Suspension La Melendez Work Phone: [facility] Work Phone: 07-11-2021 influenza, high dose seasonal, preservative-free; Translations: [Fluzone High-Dose 0.5 ML Intramuscular Suspension Prefilled Syringe] La Melendez Work Phone: [facility] Work Phone: Comment on above: Series: 01-04-2021 Moderna COVID-19 Vaccine 100 MCG/0.5ML Intramuscular Suspension La Melendez Work Phone: [facility] Comment on above: Series: 12-11-2020 Moderna COVID-19 Vaccine 100 MCG/0.5ML Intramuscular Suspension La Melendez Work Phone: [facility] Work Phone: 03-25-2020 tetanus toxoid, redu raulito diphtheria toxoid, and acellular pertussis vaccine, adsorbed La Melendez Work Phone: [facility] Work Phone: 08-06-2019 influenza, injectabl e, quadrivalent, contains preservative La Melendez MD Work Phone: [facility] Work Phone: 08-06-2019 influenza, injectabl e, quadrivalent, preservative free; Translations: [Fluarix Quadrivalent 0.5 ML Intramuscular Suspension Prefilled Syringe] [facility] Work Phone: Comment on above: Series: 08-05-2018 influenza, injectabl e, quadrivalent, contains preservative La Melendez MD Work Phone: [facility] Work Phone: 08-05-2018 influenza, injectabl e, quadrivalent, preservative free; Translations: [Flulaval Quadrivalent 0.5 ML Intramuscular Suspension Prefilled Syringe] [facility] Work Phone: Comment on above: Series: 07-18-2017 influenza, injectabl e, quadrivalent, preservative free La Melendez Work Phone: [facility] Work Phone: 07-24-2016 influenza, injectabl e, quadrivalent, preservative free La Melendez Work Phone: [facility] Work Phone: 07-24-2016 pneumococcal polysaccharide vaccine, 23 valent La Melendez Work Phone: [facility] Work Phone: 06-14-2016 zoster vaccine, live aL Melendez Work Phone: [facility] Work Phone: 09-27-2015 influenza, injectabl e, madin teodora canine kidney, preservative free La Melendez Work Phone: [facility] Work Phone: 09-26-2006 influenza virus vaccine, unspecified formulation [facility] Work Phone: [facility] Work Phone: 09-11-2005 influenza virus vaccine, unspecified formulation [facility] Work Phone: [facility] Work Phone: 09-15-2004 diphtheria and tetan us toxoids, adsorbed for pediatric use [facility] Work Phone: [facility] Work Phone: Payers Date Payer Category Payer Self-pay [id number] 2023 Unknown [id number] 2020 Medicare [id number] 2020 Medicare [id number] 2020 Unknown 2020 Unknown [id number] 1. [id number] 2020 Medicare [id number] 2020 Unknown [id number] 1955 Unknown [id number] 2.16. [id number] 1955 Unknown [id number] 2.16. 840.1.754223.3.579.2.356 1955 Unknown [id number] 2.16. 840.1.900357.3.579.2.356 1955 Unknown [id number] 2.16. [id number] 1955 Unknown [id number] 2.16. 840.1.146064.3.579.2.356 1955 Unknown [id number] 2.16. 840.1.910594.3.579.2.356 1955 Unknown [id number] 2.16. 840.1.082559.3.579.2.356 1955 Unknown [id number] 2.16. 840.1.761584.3.579.2.356 1955 Unknown [id number] 2.16. 840.1.407228.3.579.2.356 1955 Unknown [id number] 2.16. 840.1.368969.3.579.2.356 1955 Unknown [id number] 2.16. 840.1.144179.3.579.2.356 1955 Unknown [id number] 2.16.8 40.1.488404.3.579.2.1245 1955 Unknown [id number] 2.16.8 40.1.912236.3.579.2.1245 1955 Unknown [id number] 2.16.8 40.1.622911.3.579.2.1245 1955 Unknown [id number] 2.16.8 40.1.887669.3.579.2.1245 1955 Unknown [id number] 2.16. 840.1.853858.3.579.2.1244 1955 Unknown [id number] 2.16. 840.1.955987.3.579.2.124 1955 Unknown [id number] 2.16. 840.1.923455.3.579.2.1244 1955 Unknown [id number] 2.16.8 40.1.670392.3.579.2.1244 Unknown [id number] Unknown [id number] 2.16.8 [id number] Unknown [id number] 2.16.8 [id number] Social History Date Type Detail Facility Start: 01-28-2023 End: 02-02-2025 [facility] Work Phone: Start: 08-18-2021 End: 01-28-2023 Tobacco smoking status NHIS Never smoker [facility] Work Phone: Start: 08-18-2021 End: 01-28-2023 Tobacco use and exposure Never used [facility] Start: 08-18-2021 End: 09-23-2024 Alcohol intake Current drinker of alcohol (finding) [facility] Start: 1955 Sex Assigned At Not on file [facility] Start: 03-27-2022 End: 02-02-2025 Exposure to SARS-CoV-2 (event) Not sure [facility] Start: 10-26-2021 End: 11-03-2023 Tobacco smoking status NDIS Unknown if ever smoked [facility] Start: 09-09-2019 Non-smoker [facility] Start: 1955 Sex Assigned At Female C [facility] Start: 01-28-2023 End: 02-02-2025 Alcohol intake Defer [facility] Work Phone: Start: 01-28-2023 End: 02-02-2025 Tobacco use panel [facility] Work Phone: National Score (1-100), lower number is lower risk 50 [facility] Start: 02-22-2022 Gender identity Identifies as female gender (finding) [facility] Start: 02-22-2022 Sexual orientation Heterosexual (fin ding) [facility] How often to you hav e a drink containing alcohol? 4 or more times a week [facility] Work Phone: How many standard drinks containing alcohol do you have on a typical day? 1 or 2 [facility] Work Phone: How often do you hav e 6 or more drinks on 1 occasion? Never [facility] Work Phone: NEGATED: Highlighted row - - [facility] Work Phone: Medical Equipment Procedure Code Equipment Code Equipment Origin al Text Equipment Identifier Dates Vilonia Corkscrew Suturetape 5.5mm Full Thread 1.3mm Black Blue White - [id number] Start: 01-01-2024 Vilonia Corkscrew Suturetape 5.5mm Full Thread 1.3mm Black Blue White - [id number] Start: 01-01-2024 Anchr Sut 4.75mm 2 Fibertak - [id number] Start: 01-01-2024 Anchr Sut 4.75mm 2 Fibertak - [id number] Start: 01-01-2024 Functional Status Date Assessment Result Facility 02-02-2025 Patient Health Questionnaire 2 item (PHQ-2) [Reported] [facility] Work Phone: NEGATED: Highlighted row Functional performance Functional status health issues are not documented Disease [facility] Work Phone: Mental Status Date Assessment Result Facility NEGATED: Highlighted row Cognitive function [Interpretation] Cognitive status health issues are not documented Disease [facility] Work Phone: Clinical Notes 05-21-2021 to 02-02-2025 La Melendez MD - 02/02/2025 9:30 AM Eboni Melendez MD - 01/25/2025 2:30 PM Eboni Melendez MD - 09/23/2024 3:15 PM Georgia Osman DO - 09/23/2024 12:53 PM ESTPatient Instructions Note Date & Type Note Facility 02-02-2025 History of Present illness Narrative Subjective Patient ID: Carina Ham is a 69 y.o. female who presents for Follow-up (EP. Follow up hypothyroid, labs done at [facility] last saturday. Feeling better from [facility]i. No concerns.). HPI History of Present Illness Carina Ham is a 69 year old female who presents for a follow-up visit after a recent cold and medication adjustments. She recently experienced a persistent cold, which was treated with an antibiotic and a steroid, both of which she found effective. During this period, she frequently used albuterol, which she found helpful, but has not used it in the past few days. She continues to use Robitussin for residual mucus. Her thyroid function tests, including TSH, T4, and T3, were reviewed and are generally within normal limits, with slight variations in T4 and T3. She is on thyroid medication and recently received a new bottle in the mail. Her energy level is good and she has been compliant with her medication She has a history of asthma and allergies, for which she uses montelukast. She sometimes takes a break from it when her symptoms are not bothersome, but it is currently being refilled. She frequently visits her grandchildren and has a history of traveling, including trips to [place] and other destinations. She notes that she got sick during one of these visits. Review of Systems Review of systems was performed and is otherwise negative except as noted in HPI. Objective BP 118/76 Pulse 64 Temp 36.8 C (98.2 F) (Oral) Ht 1.676 m (5' 6") Wt 86.2 kg (190 lb) SpO2 99% BMI 30.67 kg/m Physical Exam HEENT is normal Lungs clear bilaterally Heart is regular rate rhythm no murmurs Abdomen benign Lower extremities no edema Assessment/Plan Diagnoses and all orders for this visit: Routine general medical examination at a health care facility - Thyroid Stimulating Hormone; Future - Thyroxine, Free; Future - Triiodothyronine, Free; Future - CBC and Auto Differential; Future - Comprehensive Metabolic Panel; Future - Lipid Panel; Future Asthma, unspecified asthma severity, unspecified whether complicated, unspecified whether persistent ([facility]) - albuterol 90 mcg/actuation inhaler; Inhale 2 puffs every 4 hours. Hypothyroidism, unspecified type - levothyroxine (Synthroid, Levoxyl) 88 mcg tablet; Take 1 tablet (88 mcg) by mouth once daily in the morning. Take before meals. - Thyroid Stimulating Hormone; Future - Thyroxine, Free; Future - Triiodothyronine, Free; Future Other fatigue - CBC and Auto Differential; Future Assessment & Plan Asthma Asthma symptoms have improved significantly following recent antibiotic and steroid treatment. Previously required frequent albuterol use, but has not used it in the past few days. Continues to use Robitussin for residual mucus. No current exacerbation of symptoms. - Refill albuterol prescription and send to [facility]. - Continue Robitussin as needed for mucus. - Consider discontinuing montelukast if asthma and allergies remain controlled. Thyroid function Thyroid function tests show TSH within normal limits, with slight variations in T3 and T4 levels. No intervention required at this time. - Continue current thyroid medication regimen. - Refill levothyroxine prescription and send to [facility]. La Melendez MD This medical note was created with the assistance of artificial intelligence (AI) for documentation purposes. The content has been reviewed and confirmed by the healthcare provider for accuracy and completeness. Patient consented to the use of audio recording and use of AI during their visit. documented in this encounter [facility] Work Phone: 01-25-2025 History of Present illness Narrative Subjective Patient ID: Carina Ham is a 69 y.o. female who presents for Cough (EP. Cough, congestion, headache, sore throat for 2 weeks and feeling worse. Grandchildren had cold.). HPI History of Present Illness Carina Ham is a 69 year old female with asthma who presents with a cold and persistent cough. She has been experiencing symptoms of a cold that began around January 14 or , approximately ten days ago. She describes a persistent dry cough and a sore throat that have been present throughout the illness. The cough sometimes produces green mucus, especially in the morning, accompanied by significant nasal congestion. She wakes up with a headache daily and has painful glands. No ear pain, nausea, vomiting, diarrhea, sneezing, itching, watery eyes, or fever, although she experienced chills without a fever. She has a history of asthma and is using her inhaler, which she finds helpful. She is also taking montelukast daily and using a nasal spray to manage her symptoms. She has been using Robitussin to help with mucus, avoiding formulations with 'D' or 'DM'. She and her were exposed to children with similar symptoms, suggesting a viral or sinus infection. Her also had similar symptoms but with ear pain instead of a sore throat. She has no known antibiotic allergies and last atb was for a UTI Review of Systems Review of systems was performed and is otherwise negative except as noted in HPI. Objective BP 118/84 Pulse 94 Temp 37.1 C (98.7 F) (Oral) Ht 1.676 m (5' 6") Wt 85.3 kg (188 lb) SpO2 98% BMI 30.34 kg/m Physical Exam HEENT fluid post b tm , mathew red, oropharynx slight injected neck supple no LA Lungs clear bilaterally Heart is regular rate rhythm no murmurs Skin no rashes Assessment/Plan Diagnoses and all orders for this visit: Acute non-recurrent frontal sinusitis - azithromycin (Zithromax) 250 mg tablet; Take 2 tablets (500 mg) by mouth once daily for 1 day, THEN 1 tablet (250 mg) once daily for 4 days. Take 2 tabs (500 mg) by mouth today, than 1 daily for 4 days.. - predniSONE (Deltasone) 20 mg tablet; Take 2 tablets (40 mg) by mouth once daily for 5 days. Assessment & Plan Sinusitis Symptoms consistent with sinusitis, including persistent cough, sore throat, green nasal discharge, and headaches for approximately 10 days. Likely viral or bacterial due to exposure to others with similar symptoms and the time of year. Allergies may contribute but are not the primary cause. - Prescribe antibiotics and a 5-day course of steroids to address infection and alleviate symptoms - Recommend nasal saline spray for nasal moisture - Advise against Mucinex DM or Robitussin DM to allow productive coughing - Instruct to use regular Mucinex or Robitussin if chest congestion is present Asthma Asthma potentially exacerbated by current illness. Inhaler and montelukast have been beneficial in managing symptoms. Continued use is advised to prevent worsening during illness. - Continue inhaler as needed - Continue daily montelukast - Continue nasal spray for congestion and pressure relief Pharmacy Follow-up Discussion about pharmacy availability and need to confirm operational status due to potential [facility] closures affecting prescription fulfillment. - Confirm if [facility] pharmacy is operational before 5 PM - Contact provider if pharmacy is closed to arrange an alternative La Melendez MD This medical note was created with the assistance of artificial intelligence (AI) for documentation purposes. The content has been reviewed and confirmed by the healthcare provider for accuracy and completeness. Patient consented to the use of audio recording and use of AI during their visit. documented in this encounter [facility] Work Phone: 09-23-2024 History of Present illness Narrative Subjective Patient ID: Carina Ham is a 69 y.o. female who presents for UTI (EP. Uti. Sat and sun burning with urination and drank 1 bottle of cranberry juice. Saturday night felt a little better and saturday fine and this morning felt like it moved up and not feeling bad now.). HPI Patient presents today with UTI symptoms. She states this started about 4 days ago. She had some burning with urination and her urine was slightly abnormal. She flushed with fluids and drink a bottle of cranberry juice. She states that she was feeling better and then her symptoms started to recur this morning. She feels like she is having a little more pain in her lower left abdomen and a little bit in her left side but not necessarily kidney pain she denies fevers or chills. She is having some frequency urgency and burning. She has not seen blood in her urine Review of Systems Review of systems was performed and is otherwise negative except as noted in HPI. Objective BP 116/78 Pulse 64 Temp 36.7 C (98 F) (Oral) Ht 1.676 m (5' 6") Wt 88.5 kg (195 lb) SpO2 98% BMI 31.47 kg/m Physical Exam HEENT is normal Lungs clear bilaterally Heart is regular rate rhythm no murmurs Abdomen benign slight tender diffusely no flank pain Lower extremities no edema Assessment/Plan Diagnoses and all orders for this visit: Dysuria - POCT UA Automated manually resulted - Urine Culture Culture sent Will start Bactrim Increase fluids Will call with culture results If pain should increase or blood should be noted we can scan for renal stones La Melendez MD documented in this encounter [facility] Work Phone: 09-23-2024 Note HNO ID: [id number] Author: GEORGIA BEDOYA, DO Service: ? Author Type: Physician Type: Progress Notes Filed: 09/25/2024 21:10 Note Text: Patient presents with: Right Shoulder - Follow Up, Pain Carina Ham is a 69 year old female who presents for follow-up 9 months status post right shoulder arthroscopy with rotator cuff repair, biceps tenodesis, subacromial decompression. The patient completed physical therapy in July. She is doing very well at this time. She notes occasional achiness in her right shoulder with the change in weather, however besides this has been doing very well. She notes significant improvement in her symptoms as compared to her preoperative state. The patient also attended physical therapy for her left hip. She denies significant pain however does note stiffness with external rotation. Reviewed nursing note and current pain scale. PAST MEDICAL HISTORY Diagnosis Date Allergic rhinitis, cause unspecified Allergic rhinitis Benign neoplasm of colon Diverticulosis of colon (without mention of hemorrhage) Exercise-induced asthma Hypothyroidism MTHFR mutation Traumatic complete tear of right rotator cuff PAST SURGICAL HISTORY Procedure Laterality Date APPENDECTOMY COLONOSCOPY FLX DX W/COLLJ SPEC WHEN PFRMD 06/12/2007 Colonoscopy DILATION AND CURETTAGE DXAND/THER NONOBSTETRIC Dilation AND curettage LAPS SURG CHOLECYSTECTOMY W/CHOLANGIOGRAPHY 03/26/[address] Ying OOPHORECTOMY PARTIAL/TOTAL UNI/BI with the right remaining, but no tube THYROIDECTOMY SUBTOTAL/PARTIAL 12/2016 TOTAL ABDOMINAL HYSTERECT W/WO RMVL TUBE OVARY Hysterectomy, ALBERTO FAMILY HISTORY Problem Relation Age of Onset Thyroid Mother graves disease Hypertension Father orthostatic and tia's other (Shy Drager) Father Breast Cancer Maternal Grandmother Breast Cancer Paternal Grandmother unsure Social History Tobacco Use Smoking status: Never Smokeless tobacco: Never Vaping Use Vaping status: Never Used Substance Use Topics Alcohol use: Yes Comment: wine with dinner at times Drug use: No Medications: Current Outpatient Medications Medication Sig L-METHYLFOLATE 15 mg tab Take by mouth once daily. calcium carbonate (CALCIUM 500) 500 mg calcium [...] puffs every four (4) hours as needed No current facility-administered medications for this visit. Allergies: ALLERGIES Allergen Reactions Molds [Other] Valdecoxib GI Upset, Diarrhea Physical Examination: Temp 98.3 Ht 5' 6" (1.68m) Wt 190 lb (86.2kg) BMI 30.68 kg/(m2). Physical exam: General: AANDO x 3; NAD. Cooperative throughout entire interview. Head: Atraumatic, normocephalic Neck: Trachea midline Chest: Unlabored breathing Neuro: Grossly intact Right Shoulder Inspection: No malalignment, atrophy, erythema, swelling, warmth, or scapular winging. AC prominence normal Active ROM Right Shoulder: Forward Flexion: 180 degrees Abduction: 180 degrees External Rotation at zero degrees of abduction: 60 degrees Internal rotation: L4 Active ROM Left Shoulder: Forward Flexion: 180 degrees Abduction: 180 degrees External Rotation at zero degrees of abduction: 60 degrees Internal rotation: L4 Special tests: Empty can: Negative Strength Right Shoulder Deltoid: 5/5 Biceps: 5/5 Triceps 5/5 Supraspinatus 5/5 External rotation 5/5 Internal rotation 5/5 Images: XR Left Hip: Moderate degenerative changes left hip Assessment and Plan: 1. Primary osteoarthritis of left hip - ICD9: 715.15, ICD10: M16.12 (primary diagnosis) 2. Traumatic complete tear of right rotator cuff, subsequent encounter - ICD9: V58.89, 840.4, ICD10: S46.011D 3. S/P right rotator cuff repair - ICD9: V45.89, ICD10: Z98.890 The physical exam findings were discussed with the patient we also reviewed her x-rays of her left hip today. Overall, the patient is doing very well at this time. She has some very mild weakness in external rotation we discussed continuing to strengthen in this plane. We discussed options for her left hip including corticosteroid injections, continued PT, PRP injections. At this point, the patient may follow-up with me as needed, I am happy to see her back at any time. Georgia Bedoya, DO Orthopedic Surgery, Sports Medicine Medical Decision Making: Problems: Low: Stable chronic illness Data: Unique test result(s) reviewed: 1 Risk: Low: Low risk from testing/treatment Medical Decision Jus (more content not included)... [facility] 09-23-2024 History of Present illness Narrative Patient presents with: Right Shoulder - Follow Up, Pain Carina Ham is a 69 year old female who presents for follow-up 9 months status post right shoulder arthroscopy with rotator cuff repair, biceps tenodesis, subacromial decompression. The patient completed physical therapy in July. She is doing very well at this time. She notes occasional achiness in her right shoulder with the change in weather, however besides this has been doing very well. She notes significant improvement in her symptoms as compared to her preoperative state. The patient also attended physical therapy for her left hip. She denies significant pain however does note stiffness with external rotation. Reviewed nursing note and current pain scale. PAST MEDICAL HISTORY Diagnosis Date Allergic rhinitis, cause unspecified Allergic rhinitis Benign neoplasm of colon Diverticulosis of colon (without mention of hemorrhage) Exercise-induced asthma Hypothyroidism MTHFR mutation Traumatic complete tear of right rotator cuff PAST SURGICAL HISTORY Procedure Laterality Date APPENDECTOMY COLONOSCOPY FLX DX W/COLLJ SPEC WHEN PFRMD 06/12/2007 Colonoscopy DILATION & CURETTAGE DX&/THER NONOBSTETRIC Dilation & curettage LAPS SURG CHOLECYSTECTOMY W/CHOLANGIOGRAPHY 03/26/[address] Ying OOPHORECTOMY PARTIAL/TOTAL UNI/BI with the right remaining, but no tube THYROIDECTOMY SUBTOTAL/PARTIAL 12/2016 TOTAL ABDOMINAL HYSTERECT W/WO RMVL TUBE OVARY Hysterectomy, ALBERTO FAMILY HISTORY Problem Relation Age of Onset Thyroid Mother graves disease Hypertension Father orthostatic and tia's other (Shy Drager) Father Breast Cancer Maternal Grandmother Breast Cancer Paternal Grandmother unsure Social History Tobacco Use Smoking status: Never Smokeless tobacco: Never Vaping Use Vaping status: Never Used Substance Use Topics Alcohol use: Yes Comment: wine with dinner at times Drug use: No Medications: Current Outpatient Medications Medication Sig L-METHYLFOLATE 15 mg tab Take by mouth once daily. calcium carbonate (CALCIUM 500) 500 mg calcium [...] puffs every four (4) hours as needed No current facility-administered medications for this visit. Allergies: ALLERGIES Allergen Reactions Molds [Other] Valdecoxib GI Upset, Diarrhea Physical Examination: Temp 98.3 Ht 5' 6" (1.68m) Wt 190 lb (86.2kg) BMI 30.68 kg/(m^2). Physical exam: General: A&O x 3; NAD. Cooperative throughout entire interview. Head: Atraumatic, normocephalic Neck: Trachea midline Chest: Unlabored breathing Neuro: Grossly intact Right Shoulder Inspection: No malalignment, atrophy, erythema, swelling, warmth, or scapular winging. AC prominence normal Active ROM Right Shoulder: Forward Flexion: 180 degrees Abduction: 180 degrees External Rotation at zero degrees of abduction: 60 degrees Internal rotation: L4 Active ROM Left Shoulder: Forward Flexion: 180 degrees Abduction: 180 degrees External Rotation at zero degrees of abduction: 60 degrees Internal rotation: L4 Special tests: Empty can: Negative Strength Right Shoulder Deltoid: 5/5 Biceps: 5/5 Triceps 5/5 Supraspinatus 5/5 External rotation 5/5 Internal rotation 5/5 Images: XR Left Hip: Moderate degenerative changes left hip Assessment and Plan: 1. Primary osteoarthritis of left hip - ICD9: 715.15, ICD10: M16.12 (primary diagnosis) 2. Traumatic complete tear of right rotator cuff, subsequent encounter - ICD9: V58.89, 840.4, ICD10: S46.011D 3. S/P right rotator cuff repair - ICD9: V45.89, ICD10: Z98.890 The physical exam findings were discussed with the patient we also reviewed her x-rays of her left hip today. Overall, the patient is doing very well at this time. She has some very mild weakness in external rotation we discussed continuing to strengthen in this plane. We discussed options for her left hip including corticosteroid injections, continued PT, PRP injections. At this point, the patient may follow-up with me as needed, I am happy to see her back at any time. Georgia Bedoya DO Orthopedic Surgery, Sports Medicine Medical Decision Making: Problems: Low: Stable chronic illness Data: Unique test result(s) reviewed: 1 Risk: Low: Low risk from testing/treatment Medical Decision Making Level: 3 - Low REVIEW OF SYSTEMS: GENERAL: Well developed, well nourished. No acute distress PAIN: Negative for pain, history of chronic pain or current treatment for chronic pain conditions CARDIOVASCULAR: Negative for chest pain, leg swelling and palpations. MSK: Negative for joint swelling SKIN: Negative for lesions, rash, itching, metal sensitivity NEURO: Negative for seizure, trauma, numbness/tingling of extremities. ENDOCRINE: Negative for diabetic associated symptoms HEMATOLOGY: Negative for excessive bleeding, clots, bleeding disorders. documented in this encounter [facility] 09-23-2024 Note HNO ID: [id number] Author: RYAN PINTO Tech Service: ? Author Type: Building Maintenance Repairer Type: Progress Notes Filed: 09/25/2024 21:10 Note Text: REVIEW OF SYSTEMS: GENERAL: Well developed, well nourished. No acute distress PAIN: Negative for pain, history of chronic pain or current treatment for chronic pain conditions CARDIOVASCULAR: Negative for chest pain, leg swelling and palpations. MSK: Negative for joint swelling SKIN: Negative for lesions, rash, itching, metal sensitivity NEURO: Negative for seizure, trauma, numbness/tingling of extremities. ENDOCRINE: Negative for diabetic associated symptoms HEMATOLOGY: Negative for excessive bleeding, clots, bleeding disorders. [facility] 08-07-2024 Note HNO ID: [id number] Author: CALVIN WHITE PT Service: ? Author Type: Physical Therapist Type: Progress Notes Filed: 08/07/2024 08:20 Note Text: Episode Visit Count: 29 Therapist That Will Accept/Oversee The Plan Of Care: Calvin White Start of Care Date: 01/15/24 Onset Date: 01/01/24 Plan of Care Certification Date: 07/16/24 Next Certification Due Date: 09/10/24 REHABILITATION AND SPORTS THERAPY PHYSICAL THERAPY DISCONTINUANCE OF CARE PLAN OF CARE UPDATE: Assessment: Carina Ham is discontinued from Physical Therapy services due to goal achievement.. Patient was seen for 29 visits from Start of Care Date: 01/15/24 to 08/07/2024 and treatment included: Therapeutic exercise, Manual therapy, and Self-snf management. Goals updated on 08/06/2024. Goals for Episode of Care: created on 01/15/2024 through 08/16/24 [place] in home exercise program. Met Patient will decrease pain rating by 2 points to meet minimal clinical important difference for numeric pain rating scale. -Met Patient will increase PROM and AROM of R shoulder to WNL to allow pt to to improve performance of ADLs. Met Patient Goals: Return to normal function in ADLs, as well as return to swimming backstrokes. Met Added 07/01/2024 for hip: Patient will decrease pain rating by 2 points to meet minimal clinical important difference for numeric pain rating scale. Met Patient will improve L hip range of motion to minimal limitations for improved functional mobility and decreased pain. Met Patient will improve hip and shoulder strength to 4+/5 for improved function and return to prior level of function. Met SUBJECTIVE: Patient notes she is now able to do her back stroke motion for swimming. Endurance is limited.. Pain: Pain Pain Level: 0 Pain Location: Shoulder - Right Pain Level 2: 0 Pain Location 2: Hip - Left PROMIS Scales 04/28/2024 03/31/2024 03/06/2024 Higher is Better Phys Func - Score 46 (within normal limits) 32 (moderate dysfunction) Phys Func - Percentile 34 4 Self-Eff Symptom - Score 51 (Average) 63 (High) Self-Eff Symptom - Percentile 54 90 T-scores: mean of general population = 50. 5 points is clinically meaningfully difference Percentiles provide an indication of how the patient's score ranks in relation to the general population. Higher percentile rankings indicate better function/quality of life. 50th percentile is the average of the general population and indicates half of respondents had a worse score. OBJECTIVE MEASURES WITH LEVEL OF FUNCTION: UE AROM R Shoulder Flex: 170 Degrees R Shoulder ABduction: 170 Degrees R Shoulder Internal Rotation (Functional): T6 R Shoulder External Rotation (Functional): T4 LE Strength L LE Strength: 5/5 Dynamometer Strength R Shoulder Standing Scaption (lbs): 6 ft/lbs R Shoulder Standing External Rotation (lbs): 10.8 ft/lbs R Shoulder Standing Internal Rotation (lbs): 22.5 ft/lbs R IR:ER Ratio (%) : 208.33 TREATMENT: Therapeutic Exercise: 2: Full can 3: SL ER 4: GTB ER/IR 5: SL hip abduction 6: Clamshells 7: Objective measures obtained Skilled Intervention: Patient was educated in proper exercise technique and purpose for exercises. Skilled judgment was used in selection of appropriate interventions. Provided written instruction for home exercise program to facilitate proper performance and compliance. Correct performance of therapeutic exercises was facilitated with verbal, visual, and tactile cuing. Billing Therapeutic Exercise Treatment Minutes: 27 Skilled Treatment Time Minutes (timed and untimed codes): 27 Total Session Time (minutes): 27 Session Start Time : 1050 Session Stop Time : 1117 Calvin White PT [facility] 08-07-2024 History of Present illness Narrative Images from the original note were not included. Episode Visit Count: 29 Therapist That Will Accept/Oversee The Plan Of Care: Calvin White Start of Care Date: 01/15/24 Onset Date: 01/01/24 Plan of Care Certification Date: 07/16/24 Next Certification Due Date: 09/10/24 REHABILITATION AND SPORTS THERAPY PHYSICAL THERAPY DISCONTINUANCE OF CARE PLAN OF CARE UPDATE: Assessment: Carina Ham is discontinued from Physical Therapy services due to goal achievement.. Patient was seen for 29 visits from Start of Care Date: 01/15/24 to 08/07/2024 and treatment included: Therapeutic exercise, Manual therapy, and Self-snf management. Goals updated on 08/06/2024. Goals for Episode of Care: created on 01/15/2024 through 08/16/24 [place] in home exercise program. Met Patient will decrease pain rating by 2 points to meet minimal clinical important difference for numeric pain rating scale. -Met Patient will increase PROM and AROM of R shoulder to WNL to allow pt to to improve performance of ADLs. Met Patient Goals: Return to normal function in ADLs, as well as return to swimming backstrokes. Met Added 07/01/2024 for hip: Patient will decrease pain rating by 2 points to meet minimal clinical important difference for numeric pain rating scale. Met Patient will improve L hip range of motion to minimal limitations for improved functional mobility and decreased pain. Met Patient will improve hip and shoulder strength to 4+/5 for improved function and return to prior level of function. Met SUBJECTIVE: Patient notes she is now able to do her back stroke motion for swimming. Endurance is limited.. Pain: Pain Pain Level: 0 Pain Location: Shoulder - Right Pain Level 2: 0 Pain Location 2: Hip - Left PROMIS Scales 04/28/2024 03/31/2024 03/06/2024 Higher is Better Phys Func - Score 46 (within normal limits) 32 (moderate dysfunction) Phys Func - Percentile 34 4 Self-Eff Symptom - Score 51 (Average) 63 (High) Self-Eff Symptom - Percentile 54 90 T-scores: mean of general population = 50. 5 points is clinically meaningfully difference Percentiles provide an indication of how the patient's score ranks in relation to the general population. Higher percentile rankings indicate better function/quality of life. 50th percentile is the average of the general population and indicates half of respondents had a worse score. OBJECTIVE MEASURES WITH LEVEL OF FUNCTION: UE AROM R Shoulder Flex: 170 Degrees R Shoulder ABduction: 170 Degrees R Shoulder Internal Rotation (Functional): T6 R Shoulder External Rotation (Functional): T4 LE Strength L LE Strength: 5/5 Dynamometer Strength R Shoulder Standing Scaption (lbs): 6 ft/lbs R Shoulder Standing External Rotation (lbs): 10.8 ft/lbs R Shoulder Standing Internal Rotation (lbs): 22.5 ft/lbs R IR:ER Ratio (%) : 208.33 TREATMENT: Therapeutic Exercise: 2: Full can 3: SL ER 4: GTB ER/IR 5: SL hip abduction 6: Clamshells 7: Objective measures obtained Skilled Intervention: Patient was educated in proper exercise technique and purpose for exercises. Skilled judgment was used in selection of appropriate interventions. Provided written instruction for home exercise program to facilitate proper performance and compliance. Correct performance of therapeutic exercises was facilitated with verbal, visual, and tactile cuing. Billing Therapeutic Exercise Treatment Minutes: 27 Skilled Treatment Time Minutes (timed and untimed codes): 27 Total Session Time (minutes): 27 Session Start Time : 1050 Session Stop Time : 1117 Calvin White PT documented in this encounter [facility] 08-05-2024 History of Present illness Narrative Subjective Patient ID: Carina Ham is a 69 y.o. female who presents for Medicare Annual Wellness Visit Subsequent (EP. Medicare annual wellness. Labs done. No concerns.). HPI Patient is here for annual check-up Last well check 1 yr Reported health good Dental check reg Vision check reg Vision issues n Hearing issues n Vaccines UTD y Diet mostly healthy Exercise reg Caffeine reg Alcohol yes Tobacco never Colon cancer screening due 2025 Current issues: reg No issues Review of Systems GENERAL - Denies fever, fatigue or chills SKIN - Denies rash, new skin lesions, or change in moles EYES - Denies blurred vision, or change in visual acuity EARS - Denies ear pain, discharge, ringing, or difficulty hearing NOSE - Denies nasal congestion, discharge, or bleeding MOUTH - Denies sore throat, postnasal drip or painful/difficulty swallowing NECK - Denies pain or swelling RESPIRATORY - Denies shortness of breath, cough, wheezing CARDIOVASCULAR - Denies palpitations, chest pain, orthopnea, peripheral edema, syncope or claudication GASTROINTESTINAL - Denies nausea, vomiting, diarrhea, constipation, abdominal pain, melena and or bright red blood GENITOURINARY - Denies dysuria, frequency of urination, urgency, or hesitancy MUSCULOSKELETAL - Denies joint or muscle pain, or back pain NEUROLOGICAL - Denies localized numbness, weakness, or tingling PSYCHIATRIC - Denies depression, anxiety, substance abuse, suicidal or homicidal ideation ENDOCRINE - Denies heat or cold intolerance, weight loss or gain, increasing thirst HEMATO-IMMUNOLOGIC - Denies easy bruising, bleeding, oral ulcerations or recurrent infections Objective BP 118/74 Pulse 61 Temp 36.8 C (98.3 F) (Oral) Ht 1.676 m (5' 6") Wt 87.1 kg (192 lb) SpO2 96% BMI 30.99 kg/m Physical Exam CONSTITUTIONAL - well nourished, well developed, looks like stated age, in no acute distress, not ill-appearing, and not tired appearing SKIN - normal skin color and pigmentation, normal skin turgor without rash, lesions, or nodules visualized HEAD - no trauma, normocephalic EYES - pupils are equal and reactive to light, extraocular muscles are intact, and normal external exam ENT - TM's intact, no injection, no signs of infection, uvula midline, normal tongue movement and throat normal, no exudate, nasal passage without discharge and patent NECK - supple without rigidity, no neck mass was observed, no thyromegaly or thyroid nodules CHEST - clear to auscultation, no wheezing, no crackles and no rales, good effort CARDIAC - regular rate and regular rhythm, no skipped beats, no murmur ABDOMEN - no organomegaly, soft, nontender, nondistended, normal bowel sounds, no guarding/rebound/rigidity, negative McBurney sign and negative Manriquez sign EXTREMITIES - no edema, no deformities NEUROLOGICAL - normal gait, normal balance, normal motor, no ataxia, DTRs equal and symmetrical; alert, oriented and no focal signs PSYCHIATRIC - alert, pleasant and cordial, age-appropriate IMMUNOLOGIC - no cervical lymphadenopathy Assessment/Plan Diagnoses and all orders for this visit: Primary hypothyroidism - Thyroid Stimulating Hormone; Future - Thyroxine, Free; Future - Triiodothyronine, Free; Future Hypothyroidism, unspecified type - levothyroxine (Synthroid, Levoxyl) 88 mcg tablet; Take 1 tablet (88 mcg) by mouth once daily in the morning. Take before meals. Asthma, unspecified asthma severity, unspecified whether complicated, unspecified whether persistent ([facility]) - montelukast (Singulair) 10 mg tablet; Take 1 tablet (10 mg) by mouth once daily at bedtime. Routine general medical examination at a health care facility Abnormal blood chemistry - Basic metabolic panel; Future Call w issues Discussed diet nd exercise Continue meds Bw reviewed and bw ordered Fu 6 mos La Melendez MD documented in this encounter [facility] Work Phone: 07-23-2024 Note HNO ID: [id number] Author: CALVIN WHITE PT Service: ? Author Type: Physical Therapist Type: Progress Notes Filed: 07/23/2024 14:59 Note Text: Episode Visit Count: 28 Therapist That Will Accept/Oversee The Plan Of Care: Calvin White Start of Care Date: 01/15/24 Onset Date: 01/01/24 Plan of Care Certification Date: 07/16/24 Next Certification Due Date: 09/10/24 REHABILITATION AND SPORTS THERAPY PHYSICAL THERAPY TREATMENT NOTE ASSESSMENT: Carina Ham tolerated the session with fatigue. She demonstrated improvements in shoulder strength and functional use of the RUE. The patient will continue to benefit from ongoing skilled physical therapy to progress toward set goals. PLAN FOR NEXT VISIT: SUBJECTIVE: Patient has done well this last month. She is back to water exercises, and back stroke is improving. Her hip is also feeling much better Pain: 0/10 OBJECTIVE MEASURES WITH LEVEL OF FUNCTION: Triceps compensation for shoulder ER with TB TREATMENT: Therapeutic Exercise: 2: *SL hip abduction series 3x10 each 3: *GTB clamshells 3x10 4: *Side stepping and monster walks 3xfatigue 5: *Step ups 3x10/side 6: Bridging 7: *Waiters carries 1# 2x down and back in back [place] Skilled Intervention: Patient was educated in proper exercise technique and purpose for exercises. Skilled judgment was used in selection of appropriate interventions. Provided written instruction for home exercise program to facilitate proper performance and compliance. Correct performance of therapeutic exercises was facilitated with verbal and visual cuing. Billing Therapeutic Exercise Treatment Minutes: 32 Skilled Treatment Time Minutes (timed and untimed codes): 32 Total Session Time (minutes): 32 Session Start Time : 1045 Session Stop Time : 1117 Calvin White PT [facility] 07-23-2024 History of Present illness Narrative Episode Visit Count: 28 Therapist That Will Accept/Oversee The Plan Of Care: Calvin White Start of Care Date: 01/15/24 Onset Date: 01/01/24 Plan of Care Certification Date: 07/16/24 Next Certification Due Date: 09/10/24 REHABILITATION AND SPORTS THERAPY PHYSICAL THERAPY TREATMENT NOTE ASSESSMENT: Carina Ham tolerated the session with fatigue. She demonstrated improvements in shoulder strength and functional use of the RUE. The patient will continue to benefit from ongoing skilled physical therapy to progress toward set goals. PLAN FOR NEXT VISIT: SUBJECTIVE: Patient has done well this last month. She is back to water exercises, and back stroke is improving. Her hip is also feeling much better Pain: 0/10 OBJECTIVE MEASURES WITH LEVEL OF FUNCTION: Triceps compensation for shoulder ER with TB TREATMENT: Therapeutic Exercise: 2: *SL hip abduction series 3x10 each 3: *GTB clamshells 3x10 4: *Side stepping and monster walks 3xfatigue 5: *Step ups 3x10/side 6: Bridging 7: *Waiters carries 1# 2x down and back in back [place] Skilled Intervention: Patient was educated in proper exercise technique and purpose for exercises. Skilled judgment was used in selection of appropriate interventions. Provided written instruction for home exercise program to facilitate proper performance and compliance. Correct performance of therapeutic exercises was facilitated with verbal and visual cuing. Billing Therapeutic Exercise Treatment Minutes: 32 Skilled Treatment Time Minutes (timed and untimed codes): 32 Total Session Time (minutes): 32 Session Start Time : 1045 Session Stop Time : 1117 Calvin White PT Program_ID:[id number] Access Code: [email or web address] URL: [email or web address] Date: 07-23-2024 Prepared By: Calvin White Program Notes Exercises - Seated Shoulder Flexion AAROM with Catalina Behind - 2-3 x daily - 7 x weekly - 2 sets - 10 reps - Sidelying Shoulder External Rotation - 1 x daily - 7 x weekly - 3 sets - 10 reps - Shoulder Internal Rotation with Resistance - 1 x daily - 7 x weekly - 3 sets - 10 reps - Shoulder Alphabet with Ball at Wall - 1 x daily - 7 x weekly - 3 sets - 10 reps - Scapular Retraction with Resistance - 1 x daily - 7 x weekly - 3 sets - 10 reps - Standing Wall Ball Circles with Mini Liberian Ball - 1 x daily - 7 x weekly - 3 sets - 10 reps - Standing Shoulder Scaption - 1 x daily - 7 x weekly - 3 sets - 10 reps - Shoulder External Rotation with Anchored Resistance - 1 x daily - 7 x weekly - 3 sets - 10 reps - Shoulder Abduction - Thumbs Up - 1 x daily - 7 x weekly - 3 sets - 10 reps - Suitcase and Stitcher Tape Controlled Machine's Carry with Kettlebells - 1 x daily - 7 x weekly - 3 sets - 10 reps Program_ID:[id number] Access Code: [email or web address] URL: [email or web address] Date: 07-23-2024 Prepared By: Calvin White Program Notes Exercises - Supine Bridge - 1 x daily - 7 x weekly - 3 sets - 10 reps - Supine Figure 4 Piriformis Stretch - 3 x daily - 7 x weekly - 1 sets - 3 reps - Clamshell with Resistance - 1 x daily - 7 x weekly - 3 sets - 10 reps - Side Stepping with Resistance at Ankles - 1 x daily - 7 x weekly - 3 sets - 10 reps - Forward Monster Walks - 1 x daily - 7 x weekly - 3 sets - 10 reps - Backward Monster Walks - 1 x daily - 7 x weekly - 3 sets - 10 reps - Step Up - 1 x daily - 7 x weekly - 3 sets - 10 reps - Sidelying Hip Abduction - 1 x daily - 7 x weekly - 3 sets - 10 reps - Sidelying Bent Knee Hip Flexion - 1 x daily - 7 x weekly - 3 sets - 10 reps - Sidelying Hip Circles - 1 x daily - 7 x weekly - 3 sets - 10 reps documented in this encounter [facility] 07-03-2024 History of Present illness Narrative Images from the original note were not included. Episode Visit Count: 27 Therapist That Will Accept/Oversee The Plan Of Care: Calvin White Start of Care Date: 01/15/24 Onset Date: 01/01/24 Plan of Care Certification Date: 07/16/24 Next Certification Due Date: 09/10/24 REHABILITATION AND SPORTS THERAPY PHYSICAL THERAPY PROGRESS REPORT PLAN OF CARE UPDATE: Assessment: Carina Ham demonstrates moderate improvement in physical activities, reaching behind back, reaching overhead, use hand with arm at shoulder level, cleaning, cooking, and dressing. She has new goals added to address for hip pain and progressed toward shoulder goals. Patient continues to present with impairments in ADL's, overall function, range of motion, strength, symptom management, and tissue tenderness that interfere with heavy exertion, lifting, physical activities, recreational activities, reaching behind back, reaching overhead, bending, squatting . Current prognosis is Good due to: current objective clinical presentation, good overall health status, acuteness of condition, positive past response to therapy, within-session changes, good support system/ coping skills . She will benefit from continued skilled therapy services to meet the updated goals for this plan of care as noted below. Goals updated on 07/01/2024. Goals for Episode of Care: created on 01/15/2024 through 08/16/24 [place] in home exercise program. Met, on-going Patient will decrease pain rating by 2 points to meet minimal clinical important difference for numeric pain rating scale. -met, continue to assess Patient will increase PROM and AROM of R shoulder to WNL to allow pt to to improve performance of ADLs. Progressing Patient Goals: Return to normal function in ADLs, as well as return to swimming backstrokes. Added 07/01/2024 for hip: Patient will decrease pain rating by 2 points to meet minimal clinical important difference for numeric pain rating scale. Patient will improve L hip range of motion to minimal limitations for improved functional mobility and decreased pain. Patient will improve hip and shoulder strength to 4+/5 for improved function and return to prior level of function. Time Frame for Goals and Treatment : 08/02/24 Planned Interventions, Frequency, and Duration: 1x every other week, 4 weeks Total Number of Visits Planned: 2 Patient to be seen for Therapeutic exercise (43867), Neuromuscular re-education (42152), Manual therapy (02714), Therapeutic activities (22515), Self-snf management (30336), Patient/Family/Caregiver Education, Body Mechanics Training PLAN FOR NEXT VISIT: Assess addition of hip exercises, progress shoulder per tolerance SUBJECTIVE: Overall patient continues to do better, but still weak and lacking endurance. Notes she has a new order to look at her L hip as well. Functional Limitations: heavy exertion, lifting, physical activities, recreational activities, reaching behind back, reaching overhead, bending, squatting Pain: Pain Pain Level: 0 Pain Location: Shoulder - Right Frequency: Continuous Additional Pain Information : Location 2 Pain Level 2: 6 Pain Location 2: Hip - Left Description 2: Sore, Aching, Radiating Frequency 2: Intermittent PROMIS Scales 04/28/2024 03/31/2024 03/06/2024 Higher is Better Phys Func - Score 46 (within normal limits) 32 (moderate dysfunction) Phys Func - Percentile 34 4 Self-Eff Symptom - Score 51 (Average) 63 (High) Self-Eff Symptom - Percentile 54 90 T-scores: mean of general population = 50. 5 points is clinically meaningfully difference Percentiles provide an indication of how the patient's score ranks in relation to the general population. Higher percentile rankings indicate better function/quality of life. 50th percentile is the average of the general population and indicates half of respondents had a worse score. OBJECTIVE MEASURES WITH LEVEL OF FUNCTION: UE AROM R Shoulder Flex: 168 Degrees R Shoulder ABduction: 110 Degrees R Shoulder Internal Rotation (Functional): T8 R Shoulder External Rotation (Functional): T4 LE PROM L LE PROM : moderate limitation in L hip flexion, ER, IR LE Strength R LE Strength: 5/5 L LE Strength: 4/5 Dynamometer Strength R Shoulder Standing Scaption (lbs): 4.3 ft/lbs R Shoulder Standing External Rotation (lbs): 10.6 ft/lbs R Shoulder Standing Internal Rotation (lbs): 16.9 ft/lbs R IR:ER Ratio (%) : 159.43 Special Tests - Hip and Spine Hip and Spine Special Tests: LARRY Test, FADDIR Test, Scour Test LARRY Test: Left Negative FADDIR Test: Left Positive Scour Test: Left Positive TREATMENT: Therapeutic Exercise: 2: *Bridging 3x10 3: *Clamshells 3x10 4: *SL hip abduction 3x10 5: *SLR 3x10 6: *Hooklying fig 4 piriformis stretch 3x30 sec on L 7: Objective measures obtained 8: Reviewed shoulder HEP Skilled Intervention: Patient was educated in proper exercise technique and purpose for exercises. Skilled judgment was used in selection of appropriate interventions. Provided written instruction for home exercise program to facilitate proper performance and compliance. Correct performance of therapeutic exercises was facilitated with verbal, visual, and tactile cuing. Billing Therapeutic Exercise Treatment Minutes: 44 Skilled Treatment Time Minutes (timed and untimed codes): 44 Total Session Time (minutes): 44 Session Start Time : 0816 Session Stop Time : 899 Calvin White PT Program_ID:[id number] Access Code: [email or web address] URL: [email or web address] Date: 07-01-2024 Prepared By: Calvin White Program Notes Exercises - Supine Bridge - 1 x daily - 7 x weekly - 3 sets - 10 reps - Clamshell - 1 x daily - 7 x weekly - 3 sets - 10 reps - Sidelying Hip Abduction - 1 x daily - 7 x weekly - 3 sets - 10 reps - Supine Active Straight Leg Raise - 1 x daily - 7 x weekly - 3 sets - 10 reps - Supine Figure 4 Piriformis Stretch - 3 x daily - 7 x weekly - 1 sets - 3 reps documented in this encounter [facility] 06-24-2024 Note HNO ID: [id number] Author: GEORGIA BEDOYA, DO Service: ? Author Type: Physician Type: Progress Notes Filed: 06/25/2024 10:08 Note Text: Patient presents with: Right Shoulder - Follow Up, Pain Carina Ham is a 68 year old female who presents for 6-month follow-up status post right shoulder arthroscopy with rotator cuff repair, subacromial decompression, and biceps tenodesis. The patient is doing very well at this time. Her preoperative symptoms have resolved. She continues to be active in physical therapy and is working on strengthening of her right shoulder. She denies any pain in her right shoulder. She is also here today for evaluation of her left hip. She has occasional pain in the groin on the left but is mostly bothered by lack of flexibility and stiffness in the left hip. She denies injury or trauma to the left hip. She underwent x-rays of the left hip on 06/17/2024 through [facility]. Reviewed nursing note and current pain scale. PAST MEDICAL HISTORY No date: Allergic rhinitis, cause unspecified Comment: Allergic rhinitis No date: Benign neoplasm of colon No date: Diverticulosis of colon (without mention of hemorrhage) No date: Exercise-induced asthma No date: Hypothyroidism No date: MTHFR mutation No date: Traumatic complete tear of right rotator cuff PAST SURGICAL HISTORY No date: APPENDECTOMY 06/12/2007: COLONOSCOPY FLX DX W/COLLJ SPEC WHEN PFRMD Comment: Colonoscopy No date: DILATION AND CURETTAGE DXAND/THER NONOBSTETRIC Comment: Dilation AND curettage 03/26/2022: LAPS SURG CHOLECYSTECTOMY W/CHOLANGIOGRAPHY Comment: using fluroscopy. Dr. Ying No date: OOPHORECTOMY PARTIAL/TOTAL UNI/BI Comment: with the right remaining, but no tube 12/2016: THYROIDECTOMY SUBTOTAL/PARTIAL No date: TOTAL ABDOMINAL HYSTERECT W/WO RMVL TUBE OVARY Comment: Hysterectomy, ALBERTO FAMILY HISTORY Problem Relation Age of Onset Thyroid Mother graves disease Hypertension Father orthostatic and tia's other (Shy Drager) Father Breast Cancer Maternal Grandmother Breast Cancer Paternal Grandmother unsure Social History Tobacco Use Smoking status: Never Smokeless tobacco: Never Vaping Use Vaping status: Never Used Substance Use Topics Alcohol use: Yes Comment: wine with dinner at times Drug use: No Medications: Current Outpatient Medications Medication Sig L-METHYLFOLATE 15 mg tab Take by mouth once daily. calcium carbonate (CALCIUM 500) 500 mg calcium (1,250 mg) tablet Take 2 tablets by mouth once daily. levothyroxine 88 mcg cap Take 88 mcg by mouth daily before breakfast. montelukast (SINGULAIR) 10 mg tablet Take 10 mg by mouth daily at bedtime. loratadine (CLARITIN) 10 mg ORAL Tab Take one(1) tablet daily. As needed. THERAPEUTIC MULTIVITAMIN TAB Take one(1) tablet daily. mometasone furoate(NASONEX 50 MCG/ACTUATION SPRAY) 2 sprays each nostril daily ALBUTEROL 90 MCG/ACTUATION AEROSOL INHALER 2 puffs every four (4) hours as needed No current facility-administered medications for this visit. Allergies: ALLERGIES Allergen Reactions Molds [Other] Valdecoxib GI Upset, Diarrhea Physical Examination: Temp 98.2 Ht 5' 6" (1.68m) Wt 190 lb (86.2kg) BMI 30.68 kg/(m2). Physical exam: General: AANDO x 3; NAD. Cooperative throughout entire interview. Head: Atraumatic, normocephalic Neck: Trachea midline Chest: Unlabored breathing Neuro: Grossly intact Right Shoulder Inspection: well healed surgical incisions Active ROM Right Shoulder: Forward Flexion: 180 degrees Abduction: 110 degrees External Rotation at zero degrees of abduction: 60 degrees Internal rotation: L4 Active ROM Left Shoulder: Forward Flexion: 180 degrees Abduction: 180 degrees External Rotation at zero degrees of abduction: 60 degrees Internal rotation: L4 Special tests: Garza: negative Lift Off: negative Empty can: negative Strength right Shoulder Deltoid: 5/5 Biceps: 5/5 Triceps 5/5 Supraspinatus 5/5 External rotation 4+/5 Internal rotation 5/5 Left Hip Normal alignment. No leg length discrepancy Skin is intact. No masses noted along hip region. She exhibits pain with flexion and rotation, especially internal. Range of motion: Flexion: 100 degrees Internal rotation: 15 degrees External rotation: 30 degrees Tenderness to palpation Greater Trochanter non tender Back non tender Sacroiliac Joints non tender Special tests: LARRY: positive, groin Logroll: negative Straight Leg raise: negative Audible iliopsoas snapping: negative Palpable IT band snapping: negative Impingement Sign: positive Motor strength: Resisted flexion 5/5 Abduction 5/5 Adduction 5/5 Hamstrings 5/5 No swelling. Full ROM of the knee and ankle seen. NVI distally. Assessment and Plan: 1. Primary osteoarthritis of left hip - ICD9: 715.15, ICD10: M16.12 The physical exam and imaging findings were discussed with the pat (more content not included)... [facility] 06-24-2024 History of Present illness Narrative Patient presents with: Right Shoulder - Follow Up, Pain Carina Ham is a 68 year old female who presents for 6-month follow-up status post right shoulder arthroscopy with rotator cuff repair, subacromial decompression, and biceps tenodesis. The patient is doing very well at this time. Her preoperative symptoms have resolved. She continues to be active in physical therapy and is working on strengthening of her right shoulder. She denies any pain in her right shoulder. She is also here today for evaluation of her left hip. She has occasional pain in the groin on the left but is mostly bothered by lack of flexibility and stiffness in the left hip. She denies injury or trauma to the left hip. She underwent x-rays of the left hip on 06/17/2024 through [facility]. Reviewed nursing note and current pain scale. PAST MEDICAL HISTORY No date: Allergic rhinitis, cause unspecified Comment: Allergic rhinitis No date: Benign neoplasm of colon No date: Diverticulosis of colon (without mention of hemorrhage) No date: Exercise-induced asthma No date: Hypothyroidism No date: MTHFR mutation No date: Traumatic complete tear of right rotator cuff PAST SURGICAL HISTORY No date: APPENDECTOMY 06/12/2007: COLONOSCOPY FLX DX W/COLLJ SPEC WHEN PFRMD Comment: Colonoscopy No date: DILATION & CURETTAGE DX&/THER NONOBSTETRIC Comment: Dilation & curettage 03/26/2022: LAPS SURG CHOLECYSTECTOMY W/CHOLANGIOGRAPHY Comment: using fluroscopy. Dr. Ying No date: OOPHORECTOMY PARTIAL/TOTAL UNI/BI Comment: with the right remaining, but no tube 12/2016: THYROIDECTOMY SUBTOTAL/PARTIAL No date: TOTAL ABDOMINAL HYSTERECT W/WO RMVL TUBE OVARY Comment: Hysterectomy, ALBERTO FAMILY HISTORY Problem Relation Age of Onset Thyroid Mother graves disease Hypertension Father orthostatic and tia's other (Shy Drager) Father Breast Cancer Maternal Grandmother Breast Cancer Paternal Grandmother unsure Social History Tobacco Use Smoking status: Never Smokeless tobacco: Never Vaping Use Vaping status: Never Used Substance Use Topics Alcohol use: Yes Comment: wine with dinner at times Drug use: No Medications: Current Outpatient Medications Medication Sig L-METHYLFOLATE 15 mg tab Take by mouth once daily. calcium carbonate (CALCIUM 500) 500 mg calcium (1,250 mg) tablet Take 2 tablets by mouth once daily. levothyroxine 88 mcg cap Take 88 mcg by mouth daily before breakfast. montelukast (SINGULAIR) 10 mg tablet Take 10 mg by mouth daily at bedtime. loratadine (CLARITIN) 10 mg ORAL Tab Take one(1) tablet daily. As needed. THERAPEUTIC MULTIVITAMIN TAB Take one(1) tablet daily. mometasone furoate(NASONEX 50 MCG/ACTUATION SPRAY) 2 sprays each nostril daily ALBUTEROL 90 MCG/ACTUATION AEROSOL INHALER 2 puffs every four (4) hours as needed No current facility-administered medications for this visit. Allergies: ALLERGIES Allergen Reactions Molds [Other] Valdecoxib GI Upset, Diarrhea Physical Examination: Temp 98.2 Ht 5' 6" (1.68m) Wt 190 lb (86.2kg) BMI 30.68 kg/(m^2). Physical exam: General: A&O x 3; NAD. Cooperative throughout entire interview. Head: Atraumatic, normocephalic Neck: Trachea midline Chest: Unlabored breathing Neuro: Grossly intact Right Shoulder Inspection: well healed surgical incisions Active ROM Right Shoulder: Forward Flexion: 180 degrees Abduction: 110 degrees External Rotation at zero degrees of abduction: 60 degrees Internal rotation: L4 Active ROM Left Shoulder: Forward Flexion: 180 degrees Abduction: 180 degrees External Rotation at zero degrees of abduction: 60 degrees Internal rotation: L4 Special tests: Garza: negative Lift Off: negative Empty can: negative Strength right Shoulder Deltoid: 5/5 Biceps: 5/5 Triceps 5/5 Supraspinatus 5/5 External rotation 4+/5 Internal rotation 5/5 Left Hip Normal alignment. No leg length discrepancy Skin is intact. No masses noted along hip region. She exhibits pain with flexion and rotation, especially internal. Range of motion: Flexion: 100 degrees Internal rotation: 15 degrees External rotation: 30 degrees Tenderness to palpation Greater Trochanter non tender Back non tender Sacroiliac Joints non tender Special tests: LARRY: positive, groin Logroll: negative Straight Leg raise: negative Audible iliopsoas snapping: negative Palpable IT band snapping: negative Impingement Sign: positive Motor strength: Resisted flexion 5/5 Abduction 5/5 Adduction 5/5 Hamstrings 5/5 No swelling. Full ROM of the knee and ankle seen. NVI distally. Assessment and Plan: 1. Primary osteoarthritis of left hip - ICD9: 715.15, ICD10: M16.12 The physical exam and imaging findings were discussed with the patient. The patient has near full range of motion of the right shoulder with some continued deficits in abduction, however isolated strength testing of her rotator cuff is strong. She does not have any pain and her preoperative range of motion is significantly improved. Overall, she is doing very well from the standpoint of her shoulder. She would like an updated prescription for physical therapy for her shoulder which was provided today. The radiology report of the patient's left hip was reviewed today, I do not have access to the plain films. Per the radiologist read, the patient has mild degenerative changes of the left hip. Her CT abdomen pelvis from 2021 was reviewed today revealing subchondral cysts and at least moderate degenerative changes. Her symptoms are consistent with osteoarthritis of the left hip. A prescription for PT was provided for her left hip today. We did also discuss corticosteroid injection if her symptoms worsen. I will see her back in about 3 months for reevaluation. I encouraged her to contact my office with any questions, concerns, or to be seen prior to her next appointment. Georgia Bedoya DO Orthopedic Surgery, Sports Medicine Medical Decision Making: Problems: Low: Stable chronic illness Moderate: 1+ chronic illnesses with change Data: Unique source(s) for external note(s) reviewed: 1 Unique test result(s) reviewed: 2 Risk: Low: Low risk from testing/treatment Medical Decision Making Level: 4 - Moderate REVIEW OF SYSTEMS: GENERAL: Well developed, well nourished. No acute distress PAIN: Negative for pain, history of chronic pain or current treatment for chronic pain conditions CARDIOVASCULAR: Negative for chest pain, leg swelling and palpations. MSK: Negative for joint swelling SKIN: Negative for lesions, rash, itching, metal sensitivity NEURO: Negative for seizure, trauma, numbness/tingling of extremities. ENDOCRINE: Negative for diabetic associated symptoms HEMATOLOGY: Negative for excessive bleeding, clots, bleeding disorders. documented in this encounter [facility] 06-24-2024 Note HNO ID: [id number] Author: RYAN PINTO Tech Service: ? Author Type: Building Maintenance Repairer Type: Progress Notes Filed: 06/25/2024 10:08 Note Text: REVIEW OF SYSTEMS: GENERAL: Well developed, well nourished. No acute distress PAIN: Negative for pain, history of chronic pain or current treatment for chronic pain conditions CARDIOVASCULAR: Negative for chest pain, leg swelling and palpations. MSK: Negative for joint swelling SKIN: Negative for lesions, rash, itching, metal sensitivity NEURO: Negative for seizure, trauma, numbness/tingling of extremities. ENDOCRINE: Negative for diabetic associated symptoms HEMATOLOGY: Negative for excessive bleeding, clots, bleeding disorders. [facility] 06-17-2024 History of Present illness Narrative Episode Visit Count: 26 Therapist That Will Accept/Oversee The Plan Of Care: Calvin White Start of Care Date: 01/15/24 Onset Date: 01/01/24 Plan of Care Certification Date: 04/15/24 Next Certification Due Date: 07/16/24 REHABILITATION AND SPORTS THERAPY PHYSICAL THERAPY TREATMENT NOTE ASSESSMENT: Carina Ham tolerated the session with fatigue and no issues. She demonstrated improvements in shoulder AROM and tolerance for strength and endurance exercises. The patient will continue to benefit from ongoing skilled physical therapy to progress toward set goals, for reassessment by supervising therapist, and to continue with post-operative protocol. PLAN FOR NEXT VISIT: DC SUBJECTIVE: Patient doing well, no issues since last being seen. Pain: Pain Pain Level: 0 OBJECTIVE MEASURES WITH LEVEL OF FUNCTION: UE AROM R Shoulder Flex: 150 Degrees R Shoulder ABduction: 150 Degrees TREATMENT: Therapeutic Exercise: 2: UBE x3 min, seat 7 3: Shoulder pulleys x2 min into flexion and abduction 4: SL ER 2# 2x10 5: Full can 1# 2x10 6: AROM flexion and abduction 2x10 each 7: Overhead wall ball circles 3x30 sec 8: *Overhead wall ball taps 2# softmed ball 2x20 9: *Waiters carries at shoulder height 1# DB 2 passes down back hallway (given for home to point of fatigue 2x) Skilled Intervention: Patient was educated in proper exercise technique and purpose for exercises. Skilled judgment was used in selection of appropriate interventions. Provided written instruction for home exercise program to facilitate proper performance and compliance. Correct performance of therapeutic exercises was facilitated with verbal and visual cuing. Billing Therapeutic Exercise Treatment Minutes: 30 Skilled Treatment Time Minutes (timed and untimed codes): 30 Total Session Time (minutes): 30 Session Start Time : 0820 Session Stop Time : 0850 Calvin White PT Program_ID:[id number] Access Code: [email or web address] URL: [email or web address] Date: 06-17-2024 Prepared By: Calvin White Program Notes Exercises - Seated Shoulder Flexion AAROM with Catalina Behind - 2-3 x daily - 7 x weekly - 2 sets - 10 reps - Sidelying Shoulder External Rotation - 1 x daily - 7 x weekly - 3 sets - 10 reps - Shoulder Internal Rotation with Resistance - 1 x daily - 7 x weekly - 3 sets - 10 reps - Shoulder Alphabet with Ball at Wall - 1 x daily - 7 x weekly - 3 sets - 10 reps - Scapular Retraction with Resistance - 1 x daily - 7 x weekly - 3 sets - 10 reps - Standing Wall Ball Circles with Mini Liberian Ball - 1 x daily - 7 x weekly - 3 sets - 10 reps - Standing Shoulder Scaption - 1 x daily - 7 x weekly - 3 sets - 10 reps - Shoulder External Rotation with Anchored Resistance - 1 x daily - 7 x weekly - 3 sets - 10 reps - Shoulder Abduction - Thumbs Up - 1 x daily - 7 x weekly - 3 sets - 10 reps - Suitcase and Stitcher Tape Controlled Machine's Carry with Kettlebells - 1 x daily - 7 x weekly - 3 sets - 10 reps documented in this encounter [facility] 06-16-2024 History of Present illness Narrative Subjective Patient ID: aCrina Ham is a 68 y.o. female who presents for Hip Pain (EP. L hip pain for a while and getting less and less mobile. PT moved hip and said there feels like theres bone where there should not be bone. She would like xray.). HPI Has issues w left hip Has been there for a long time and then got worse and asked about it at PT for shoulder He examined it and thought she had a bony issue or impingement No numbness weakness or tingle Had pain more after sitting on the floor a long time Review of Systems Review of systems was performed and is otherwise negative except as noted in HPI. Objective BP 116/76 Pulse 76 Temp 36.8 C (98.2 F) (Oral) Ht 1.676 m (5' 6") Wt 87.1 kg (192 lb) SpO2 96% BMI 30.99 kg/m Physical Exam HEENT is normal Lungs clear bilaterally Heart is regular rate rhythm no murmurs Lower extremities no edema Decreased range of motion with external rotation of the hip as well as internal flexion extension normal Assessment/Plan Diagnoses and all orders for this visit: Left hip pain - XR hip left with pelvis when performed 2 or 3 views; Future Will assess x-ray May need an Ortho referral If no bony changes are seen can trial physical therapy Follow-up as scheduled La Melendez MD documented in this encounter [facility] Work Phone: 06-04-2024 History of Present illness Narrative Images from the original note were not included. Episode Visit Count: 25 Therapist That Will Accept/Oversee The Plan Of Care: Calvin White Start of Care Date: 01/15/24 Onset Date: 01/01/24 Plan of Care Certification Date: 04/15/24 Next Certification Due Date: 07/16/24 REHABILITATION AND SPORTS THERAPY PHYSICAL THERAPY PROGRESS REPORT PLAN OF CARE UPDATE: Assessment: Carina Ham demonstrates moderate improvement in lifting, physical activities, reaching behind back, reaching overhead, use hand with arm at shoulder level, cleaning, cooking, dressing, and grooming. She has progressed toward goals. Patient continues to present with impairments in ADL's, overall function, and range of motion that interfere with heavy exertion, lifting, physical activities, recreational activities, reaching behind back, reaching overhead . Current prognosis is Good due to: current objective clinical presentation, good overall health status, acuteness of condition, positive past response to therapy, within-session changes, good support system/ coping skills . She will benefit from continued skilled therapy services to meet the updated goals for this plan of care as noted below. Goals updated on 06/04/2024. Goals for Episode of Care: created on 01/15/2024 through 07/16/24 [place] in home exercise program. Met, on-going Patient will decrease pain rating by 2 points to meet minimal clinical important difference for numeric pain rating scale. -met, continue to assess Patient will increase PROM and AROM of R shoulder to WNL to allow pt to to improve performance of ADLs. Progressing Patient Goals: Return to normal function in ADLs, as well as return to swimming backstrokes. Planned Interventions, Frequency, and Duration: 1x every other week, 6 weeks Total Number of Visits Planned: 2 Patient to be seen for Therapeutic exercise (96698), Neuromuscular re-education (00993), Manual therapy (45913), Therapeutic activities (44820), Self-snf management (45145), Patient/Family/Caregiver Education, Body Mechanics Training PLAN FOR NEXT VISIT: Continue strengthening SUBJECTIVE: Overall patient continuing to do well and progress. Still weak and limited active motion, but can notice weekly improvement. Lifting holding any weight is still rough, but simply reaching is much better. Still tough to wash hair, reach behind back. Functional Limitations: heavy exertion, lifting, physical activities, recreational activities, reaching behind back, reaching overhead Pain: Pain Pain Level: 0 PROMIS Scales 04/28/2024 03/31/2024 03/06/2024 Higher is Better Phys Func - Score 46 (within normal limits) 32 (moderate dysfunction) Phys Func - Percentile 34 4 Self-Eff Symptom - Score 51 (Average) 63 (High) Self-Eff Symptom - Percentile 54 90 T-scores: mean of general population = 50. 5 points is clinically meaningfully difference Percentiles provide an indication of how the patient's score ranks in relation to the general population. Higher percentile rankings indicate better function/quality of life. 50th percentile is the average of the general population and indicates half of respondents had a worse score. OBJECTIVE MEASURES WITH LEVEL OF FUNCTION: UE AROM R Shoulder Flex: 132 Degrees R Shoulder ABduction: 94 Degrees R Shoulder Internal Rotation (Functional): L5 R Shoulder External Rotation (Functional): T2 Dynamometer Strength R Shoulder Standing Scaption (lbs): 3.7 ft/lbs R Shoulder Standing External Rotation (lbs): 8.4 ft/lbs TREATMENT: Therapeutic Exercise: 2: UBE x4 min, seat 7 3: Shoulder pulleys x2 min into flexion and abduction 4: AROM flexion and abduction 2x5 each 5: SL ER 2# 2x10 6: Full can 1# 2x10 7: Objective measures obtained Skilled Intervention: Patient was educated in proper exercise technique and purpose for exercises. Skilled judgment was used in selection of appropriate interventions. Provided written instruction for home exercise program to facilitate proper performance and compliance. Correct performance of therapeutic exercises was facilitated with verbal, visual, and tactile cuing. Billing Therapeutic Exercise Treatment Minutes: 40 Skilled Treatment Time Minutes (timed and untimed codes): 40 Total Session Time (minutes): 40 Session Start Time : 0920 Session Stop Time : 1000 Calvin White PT Program_ID:[id number] Access Code: [email or web address] URL: [email or web address] Date: 06-02-2024 Prepared By: Calvin White Program Notes Exercises - Seated Shoulder Flexion AAROM with Catalina Behind - 2-3 x daily - 7 x weekly - 2 sets - 10 reps - Sidelying Shoulder External Rotation - 1 x daily - 7 x weekly - 3 sets - 10 reps - Shoulder Internal Rotation with Resistance - 1 x daily - 7 x weekly - 3 sets - 10 reps - Shoulder Alphabet with Ball at Wall - 1 x daily - 7 x weekly - 3 sets - 10 reps - Scapular Retraction with Resistance - 1 x daily - 7 x weekly - 3 sets - 10 reps - Standing Wall Ball Circles with Mini Liberian Ball - 1 x daily - 7 x weekly - 3 sets - 10 reps - Standing Shoulder Scaption - 1 x daily - 7 x weekly - 3 sets - 10 reps - Shoulder External Rotation with Anchored Resistance - 1 x daily - 7 x weekly - 3 sets - 10 reps - Shoulder Abduction - Thumbs Up - 1 x daily - 7 x weekly - 3 sets - 10 reps documented in this encounter [facility] 05-26-2024 History of Present illness Narrative Episode Visit Count: 24 Therapist That Will Accept/Oversee The Plan Of Care: Calvin White Start of Care Date: 01/15/24 Onset Date: 01/01/24 Plan of Care Certification Date: 04/15/24 Next Certification Due Date: 07/16/24 REHABILITATION AND SPORTS THERAPY PHYSICAL THERAPY TREATMENT NOTE ASSESSMENT: Carina Ham tolerated the session with fatigue and no issues. She demonstrated improvements in exercise tolerance and AROM. The patient will continue to benefit from ongoing skilled physical therapy to progress toward set goals. PLAN FOR NEXT VISIT: Continue strength and AROM progression per tolerance SUBJECTIVE: Patient able to reach voerhead better, reaching into cabinets etc. Pain: Pain Pain Level: 0 OBJECTIVE MEASURES WITH LEVEL OF FUNCTION: UE AROM R Shoulder Flex: 120 Degrees R Shoulder ABduction: 81 Degrees TREATMENT: Therapeutic Exercise: 2: UBE x4 min, seat 7 (1:1 entire time, discussed progress towards goals and function in last week) 3: Shoulder pulleys x2 min into flexion and abduction 4: AROM flexion and abduction 2x5 each 5: SL ER 2# 2x10 6: Full can 1# 2x10 7: Wall ball dribbles in end range flexion 2x30 sec (patient needed to roll the ball in small circles today, unable to dribble) 8: Body blade at side up and down, ER/IR 2x30 sec each Skilled Intervention: Patient was educated in proper exercise technique and purpose for exercises. Skilled judgment was used in selection of appropriate interventions. Provided written instruction for home exercise program to facilitate proper performance and compliance. Correct performance of therapeutic exercises was facilitated with verbal, visual, and tactile cuing. Billing Therapeutic Exercise Treatment Minutes: 38 Skilled Treatment Time Minutes (timed and untimed codes): 38 Total Session Time (minutes): 38 Session Start Time : 919 Session Stop Time : 957 Calvin White PT documented in this encounter [facility] 05-22-2024 History of Present illness Narrative Images from the original note were not included. Episode Visit Count: 23 Therapist That Will Accept/Oversee The Plan Of Care: Calvin White Start of Care Date: 01/15/24 Onset Date: 01/01/24 Plan of Care Certification Date: 04/15/24 Next Certification Due Date: 07/16/24 REHABILITATION AND SPORTS THERAPY PHYSICAL THERAPY PROGRESS REPORT PLAN OF CARE UPDATE: Assessment: Carina Ham demonstrates moderate improvement in physical activities, sleeping, use hand with arm at shoulder level, dressing, and grooming. She has progressed toward goals. Patient continues to present with impairments in ADL's, overall function, range of motion, and strength that interfere with heavy exertion, lifting, physical activities, recreational activities, reaching behind back, reaching overhead . Current prognosis is Good due to: current objective clinical presentation, good overall health status, acuteness of condition, positive past response to therapy, within-session changes, good support system/ coping skills . She will benefit from continued skilled therapy services to meet the updated goals for this plan of care as noted below. Goals updated on 05/19/2024. Goals for Episode of Care: created on 01/15/2024 through 07/16/24 [place] in home exercise program. Met, on-going Patient will decrease pain rating by 2 points to meet minimal clinical important difference for numeric pain rating scale. -met, continue to assess Patient will increase PROM and AROM of R shoulder to WNL to allow pt to to improve performance of ADLs. Progressing, ongoing difficulty with pure shoulder abduction Patient Goals: Return to normal function in ADLs, as well as return to swimming backstrokes. Planned Interventions, Frequency, and Duration: 1x every other week, 8 weeks Total Number of Visits Planned: 4 Patient to be seen for Therapeutic exercise (10705), Therapeutic activities (16677), Neuromuscular re-education (62265), Manual therapy (30525), Self-snf management (27009), Patient/Family/Caregiver Education, Body Mechanics Training PLAN FOR NEXT VISIT: Strengthening per tolerance, continue to progress active motion SUBJECTIVE: Patient continuing to see progress. She is still weak with limited active motion, but some functional motions are possible now up to shoulder height elevation of the RUE. Patient continues to sleep well and feels like the exercises are getting easier. Functional Limitations: heavy exertion, lifting, physical activities, recreational activities, reaching behind back, reaching overhead Pain: Pain Pain Level: 0 PROMIS Scales 04/28/2024 03/31/2024 03/06/2024 Higher is Better Phys Func - Score 46 (within normal limits) 32 (moderate dysfunction) Phys Func - Percentile 34 4 Self-Eff Symptom - Score 51 (Average) 63 (High) Self-Eff Symptom - Percentile 54 90 T-scores: mean of general population = 50. 5 points is clinically meaningfully difference Percentiles provide an indication of how the patient's score ranks in relation to the general population. Higher percentile rankings indicate better function/quality of life. 50th percentile is the average of the general population and indicates half of respondents had a worse score. OBJECTIVE MEASURES WITH LEVEL OF FUNCTION: UE AROM R Shoulder Flex: 110 Degrees R Shoulder ABduction: 70 Degrees R Shoulder Internal Rotation (Functional): S1 R Shoulder External Rotation (Functional): T1 UE and Cervical Strength Strength Tested: Shoulder Dynamometer Testing Dynamometer Strength R Shoulder Standing Scaption (lbs): 3.4 ft/lbs R Shoulder Standing External Rotation (lbs): 6.3 ft/lbs R Shoulder Standing Internal Rotation (lbs): 17 ft/lbs L Shoulder Standing Scaption (lbs): 7.6 ft/lbs L Shoulder Standing External Rotation (lbs): 11.4 ft/lbs L Shoulder Standing Internal Rotation (lbs): 18.3 ft/lbs R IR:ER Ratio (%) : 269.84 L IR:ER Ratio (%): 160.53 TREATMENT: Therapeutic Exercise: 2: UBE ,seat height #3, seat#6 x 2 minutes forward, x 1.5 minutes backwards 3: Objective measures obtained 4: *Full can 1# 3x10 5: *AROM full range 3x5 6: SL ER 2# 3x10 Skilled Intervention: Patient was educated in proper exercise technique and purpose for exercises. Skilled judgment was used in selection of appropriate interventions. Provided written instruction for home exercise program to facilitate proper performance and compliance. Correct performance of therapeutic exercises was facilitated with verbal, visual, and tactile cuing. Billing Therapeutic Exercise Treatment Minutes: 40 Skilled Treatment Time Minutes (timed and untimed codes): 40 Total Session Time (minutes): 40 Session Start Time : 0920 Session Stop Time : 1000 Calvin White PT documented in this encounter [facility] 05-12-2024 History of Present illness Narrative Program_ID:[id number] Access Code: [email or web address] URL: [email or web address] Date: 05-12-2024 Prepared By: Calvin White Program Notes Exercises - Seated Shoulder Flexion AAROM with Catalina Behind - 2-3 x daily - 7 x weekly - 2 sets - 10 reps - Shoulder External Rotation Reactive Isometrics - 1 x daily - 7 x weekly - 3 sets - 10 reps - Shoulder Flexion Wall Slide with Towel - 1 x daily - 7 x weekly - 3 sets - 10 reps - Sidelying Shoulder External Rotation - 1 x daily - 7 x weekly - 3 sets - 10 reps - Shoulder Internal Rotation with Resistance - 1 x daily - 7 x weekly - 2-3 sets - 10 reps - Shoulder Alphabet with Ball at Wall - 1 x daily - 7 x weekly - 2 sets - 10 reps - Scapular Retraction with Resistance - 1 x daily - 7 x weekly - 2 sets - 10 reps - Standing Wall Ball Circles with Mini Liberian Ball - 1 x daily - 7 x weekly - 3 sets - 10 reps - Standing Shoulder Scaption - 1 x daily - 7 x weekly - 3 sets - 5 reps - Sidelying Shoulder Horizontal Abduction - 1 x daily - 7 x weekly - 1-2 sets - 5 reps Episode Visit Count: 22 Therapist That Will Accept/Oversee The Plan Of Care: Calvin White Start of Care Date: 01/15/24 Onset Date: 01/01/24 Plan of Care Certification Date: 04/15/24 Next Certification Due Date: 07/16/24 Patient Identified by Name and Date of : Yes REHABILITATION AND SPORTS THERAPY PHYSICAL THERAPY TREATMENT NOTE ASSESSMENT: Carina Ham tolerated the session with fatigue and expected muscle soreness. She demonstrated improvements in endurance with strengthening exercises. The patient will continue to benefit from ongoing skilled physical therapy to progress toward set goals. PLAN FOR NEXT VISIT: Continue with strengthening as able SUBJECTIVE: Pt reports that her shoulder is fine. Pt would like to be able to backstroke again Pain: Pain Pain Level: 0 Pain Location: Shoulder - Right Post Treatment Pain Post Treatment Pain Location: Shoulder - Right Post Treatment Symptoms: Fatigue OBJECTIVE MEASURES WITH LEVEL OF FUNCTION: Pt challenged with scaption wall slides. TREATMENT: Therapeutic Exercise: 2: UBE ,seat height #3, seat#6 x 2 minutes forward, x 1.5 minutes backwards (1:1 throughout) 3: wall slides for flexion x 10 4: Wall slides for scaption 2x10, unable to complete in full abduction 5: Wall alphabet 2x 6: Wall circles with ball 2x10 cw/ccw 7: Numbers on wall #1-4, 2x30 seconds 8: Body blade at side up and down 2x30 sec 9: Body blade ER/IR at side 2x30 sec 10: GTB rows 3x10 11: GTB ER walkouts 2x10 12: GTB IR 1x10, BTB 1x10, PuTB 1x10 ([place] good with use of purple TB) 13: SL ER 1# 3x10 14: *SL horizontal abduction 1x5 Skilled Intervention: Patient was educated in proper exercise technique and purpose for exercises. Reviewed and educated patient on additions/changes for home exercise program as above (*). Skilled judgment was used in selection of appropriate interventions. Provided written instruction for home exercise program to facilitate proper performance and compliance. Correct performance of therapeutic exercises was facilitated with verbal and visual cuing. Billing Therapeutic Exercise Treatment Minutes: 44 Skilled Treatment Time Minutes (timed and untimed codes): 44 Total Session Time (minutes): 44 Session Start Time : 757 Session Stop Time : 841 RUBINA Fernandez PT documented in this encounter [facility] 05-05-2024 History of Present illness Narrative Episode Visit Count: 21 Therapist That Will Accept/Oversee The Plan Of Care: Calvin White Start of Care Date: 01/15/24 Onset Date: 01/01/24 Plan of Care Certification Date: 04/15/24 Next Certification Due Date: 07/16/24 REHABILITATION AND SPORTS THERAPY PHYSICAL THERAPY TREATMENT NOTE ASSESSMENT: Carina Ham tolerated the session with fatigue and no issues. She demonstrated improvements in shoulder strength and tolerance for AROM. The patient will continue to benefit from ongoing skilled physical therapy to progress toward set goals and to continue with post-operative protocol. PLAN FOR NEXT VISIT: Down to 1x/week now. Continue progressing volume of strengthening SUBJECTIVE: Patient doing well. She can really tell her strength is starting to return. Managing exercises well at home Pain: Pain Pain Level: 0 Pain Location: Shoulder - Right OBJECTIVE MEASURES WITH LEVEL OF FUNCTION: TREATMENT: Therapeutic Exercise: 2: Pulleys x20 each flexion/scaption/abduction 3: Wall slides 3x15 4: Wall alphabet 2x 5: SL ER 1# 3x10 6: Body blade at side up and down 2x30 sec 7: Body blade ER/IR at side 2x30 sec 8: Wall circles with ball 2x10 cw/ccw 9: GTB IR 3x10 10: GTB ER walkouts 3x10 11: GTB rows 3x10 12: *Full can 1x5 (discussed how to add volume and progress exercise) Skilled Intervention: Patient was educated in proper exercise technique and purpose for exercises. Skilled judgment was used in selection of appropriate interventions. Provided written instruction for home exercise program to facilitate proper performance and compliance. Correct performance of therapeutic exercises was facilitated with verbal, visual, and tactile cuing. Billing Therapeutic Exercise Treatment Minutes: 38 Skilled Treatment Time Minutes (timed and untimed codes): 38 Total Session Time (minutes): 38 Session Start Time : 914 Session Stop Time : 952 Calvin White PT Program_ID:[id number] Access Code: [email or web address] URL: [email or web address] Date: 05-05-2024 Prepared By: Calvin White Program Notes Exercises - Seated Shoulder Flexion AAROM with Catalina Behind - 2-3 x daily - 7 x weekly - 2 sets - 10 reps - Shoulder External Rotation Reactive Isometrics - 1 x daily - 7 x weekly - 3 sets - 10 reps - Shoulder Flexion Wall Slide with Towel - 1 x daily - 7 x weekly - 3 sets - 10 reps - Sidelying Shoulder External Rotation - 1 x daily - 7 x weekly - 3 sets - 10 reps - Shoulder Internal Rotation with Resistance - 1 x daily - 7 x weekly - 2-3 sets - 10 reps - Shoulder Alphabet with Ball at Wall - 1 x daily - 7 x weekly - 2 sets - 10 reps - Scapular Retraction with Resistance - 1 x daily - 7 x weekly - 2 sets - 10 reps - Standing Wall Ball Circles with Mini Liberian Ball - 1 x daily - 7 x weekly - 3 sets - 10 reps - Standing Shoulder Scaption - 1 x daily - 7 x weekly - 3 sets - 5 reps documented in this encounter [facility] 05-01-2024 History of Present illness Narrative Episode Visit Count: 20 Therapist That Will Accept/Oversee The Plan Of Care: Calvin White Start of Care Date: 01/15/24 Onset Date: 01/01/24 Plan of Care Certification Date: 04/15/24 Next Certification Due Date: 07/16/24 REHABILITATION AND SPORTS THERAPY PHYSICAL THERAPY TREATMENT NOTE ASSESSMENT: Carina Ham tolerated the session with fatigue, expected muscle soreness, and no issues. She demonstrated improvements in tolerance for strengthening at shoulder height with wall circles with use of a ball. The patient will continue to benefit from ongoing skilled physical therapy to progress toward set goals. PLAN FOR NEXT VISIT: Continue strengthening per tolerance SUBJECTIVE: Patient doing well today. Had a good follow up with the surgeon. Encouraged to continue focusing on strengthening Pain: Pain Pain Level: 0 Pain Location: Shoulder - Right OBJECTIVE MEASURES WITH LEVEL OF FUNCTION: TREATMENT: Therapeutic Exercise: 2: Pulleys x20 each flexion/scaption/abduction 3: Wall circles x10 cw/ccw 4: Wall alphabet A-Z in small range. 5: PiTB ER walkouts 2x10 6: PiTB IR 1x10, GTB 1x10 7: SL ER 1# 3x10 8: Wall circles with ball 2x10 cw/ccw (Do this going forward until this gets easier) 9: Body blade at side up and down 2x30 sec 10: Body blade ER/IR at side 2x30 sec Skilled Intervention: Patient was educated in proper exercise technique and purpose for exercises. Skilled judgment was used in selection of appropriate interventions. Correct performance of therapeutic exercises was facilitated with verbal, visual, and tactile cuing. Billing Therapeutic Exercise Treatment Minutes: 30 Skilled Treatment Time Minutes (timed and untimed codes): 30 Total Session Time (minutes): 30 Session Start Time : 1035 Session Stop Time : 1105 Calvin White PT Program_ID:[id number] Access Code: [email or web address] URL: [email or web address] Date: 05-01-2024 Prepared By: Calvin White Program Notes Exercises - Seated Shoulder Flexion AAROM with Catalina Behind - 2-3 x daily - 7 x weekly - 2 sets - 10 reps - Shoulder External Rotation Reactive Isometrics - 1 x daily - 7 x weekly - 3 sets - 10 reps - Shoulder Flexion Wall Slide with Towel - 1 x daily - 7 x weekly - 3 sets - 10 reps - Sidelying Shoulder External Rotation - 1 x daily - 7 x weekly - 3 sets - 10 reps - Shoulder Internal Rotation with Resistance - 1 x daily - 7 x weekly - 2-3 sets - 10 reps - Shoulder Alphabet with Ball at Wall - 1 x daily - 7 x weekly - 2 sets - 10 reps - Scapular Retraction with Resistance - 1 x daily - 7 x weekly - 2 sets - 10 reps - Standing Wall Ball Circles with Mini Liberian Ball - 1 x daily - 7 x weekly - 3 sets - 10 reps documented in this encounter [facility] 04-28-2024 Note HNO ID: [id number] Author: GEORGIA BEDOYA, DO Service: ? Author Type: Physician Type: Progress Notes Filed: 05/28/2024 10:25 Note Text: Patient presents with: Right Shoulder - Established Patient Carina Ham is a 68 year old female who presents for follow up right shoulder arthroscopy with rotator cuff repair, biceps tenodesis, and subacromial decompression on 01/01/2024. The patient is doing well. She denies any pain in her right shoulder. She does have some residual weakness. She is working on strengthening of the right shoulder through physical therapy. Reviewed nursing note and current pain scale. PAST MEDICAL HISTORY No date: Allergic rhinitis, cause unspecified Comment: Allergic rhinitis No date: Benign neoplasm of colon No date: Diverticulosis of colon (without mention of hemorrhage) No date: Exercise-induced asthma No date: Hypothyroidism No date: MTHFR mutation No date: Traumatic complete tear of right rotator cuff PAST SURGICAL HISTORY No date: APPENDECTOMY 06/12/2007: COLONOSCOPY FLX DX W/COLLJ SPEC WHEN PFRMD Comment: Colonoscopy No date: DILATION AND CURETTAGE DXAND/THER NONOBSTETRIC Comment: Dilation AND curettage 03/26/2022: LAPS SURG CHOLECYSTECTOMY W/CHOLANGIOGRAPHY Comment: using fluroscopy. Dr. Ying No date: OOPHORECTOMY PARTIAL/TOTAL UNI/BI Comment: with the right remaining, but no tube 12/2016: THYROIDECTOMY SUBTOTAL/PARTIAL No date: TOTAL ABDOMINAL HYSTERECT W/WO RMVL TUBE OVARY Comment: Hysterectomy, ALBERTO FAMILY HISTORY Problem Relation Age of Onset Thyroid Mother graves disease Hypertension Father orthostatic and tia's other (Nilam Drager) Father Breast Cancer Maternal Grandmother Breast Cancer Paternal Grandmother unsure Social History Tobacco Use Smoking status: Never Smokeless tobacco: Never Vaping Use Vaping Use: Never used Substance Use Topics Alcohol use: Yes Comment: wine with dinner at times Drug use: No Medications: Current Outpatient Medications Medication Sig L-METHYLFOLATE 15 mg tab Take by mouth once daily. calcium carbonate (CALCIUM 500) 500 mg calcium [...] puffs every four (4) hours as needed No current facility-administered medications for this visit. Allergies: ALLERGIES Allergen Reactions Molds [Other] Valdecoxib GI Upset, Diarrhea Physical Examination: Resp 18 Ht 5' 6" (1.68m) Wt 190 lb (86.2kg) BMI 30.68 kg/(m2). Physical exam: General: AANDO x 3; NAD. Cooperative throughout entire interview. Head: Atraumatic, normocephalic Neck: Trachea Midline Chest: Unlabored breathing Neuro: Grossly intact Right Shoulder Inspection: No malalignment, atrophy, erythema, swelling, warmth, or scapular winging. AC prominence normal Bony Palpation: No tenderness of the sternoclavicular joint,, the clavicle, the acromioclavicular joint, the greater tuberosity Soft tissue palpation: No tenderness to palpation of the lateral rotator cuff insertion, no tenderness to palpation of the subdeltoid bursa Active ROM Right Shoulder supine: Forward Flexion: 150 degrees Abduction: 90 degrees External Rotation at zero degrees of abduction: 50 degrees Internal rotation: Sacrum Active ROM Left Shoulder: Forward Flexion: 180 degrees Abduction: 180 degrees External Rotation at zero degrees of abduction: 60 degrees Internal rotation: L4 Special tests: Garza: negative Lift Off: negative Empty can: negative Strength Right Shoulder Deltoid: 5/5 Biceps: 5/5 Triceps 5/5 Supraspinatus 4/5 External rotation 4/5 Internal rotation 5/5 Assessment and Plan: 1. Traumatic complete tear of right rotator cuff, subsequent encounter - ICD9: V58.89, 840.4, ICD10: S46.011D (primary diagnosis) 2. S/P right rotator cuff repair - ICD9: V45.89, ICD10: Z98.890 The physical exam findings were discussed with the patient. The patient has full range of motion in forward elevation, external rotation while supine. She does still struggle with abduction. We discussed continuing physical therapy for strengthening of the rotator cuff. She is agreeable to this plan moving forward. I will see her back in 2 months for repeat evaluation. We discussed contacting the office with any questions, concerns, or to be seen prior to her next appointment. Georgia Bedoya, Orthopedic Surgery, Sports Medicine Medical Decision Making: Problems: Moderate: 1+ chronic illnesses with change Risk: Low: Low risk from testing/treatment Medical Deci (more content not included)... [facility] 04-28-2024 History of Present illness Narrative Patient presents with: Right Shoulder - Established Patient Carina Ham is a 68 year old female who presents for follow up right shoulder arthroscopy with rotator cuff repair, biceps tenodesis, and subacromial decompression on 01/01/2024. The patient is doing well. She denies any pain in her right shoulder. She does have some residual weakness. She is working on strengthening of the right shoulder through physical therapy. Reviewed nursing note and current pain scale. PAST MEDICAL HISTORY No date: Allergic rhinitis, cause unspecified Comment: Allergic rhinitis No date: Benign neoplasm of colon No date: Diverticulosis of colon (without mention of hemorrhage) No date: Exercise-induced asthma No date: Hypothyroidism No date: MTHFR mutation No date: Traumatic complete tear of right rotator cuff PAST SURGICAL HISTORY No date: APPENDECTOMY 06/12/2007: COLONOSCOPY FLX DX W/COLLJ SPEC WHEN PFRMD Comment: Colonoscopy No date: DILATION & CURETTAGE DX&/THER NONOBSTETRIC Comment: Dilation & curettage 03/26/2022: LAPS SURG CHOLECYSTECTOMY W/CHOLANGIOGRAPHY Comment: using fluroscopy. Dr. Ying No date: OOPHORECTOMY PARTIAL/TOTAL UNI/BI Comment: with the right remaining, but no tube 12/2016: THYROIDECTOMY SUBTOTAL/PARTIAL No date: TOTAL ABDOMINAL HYSTERECT W/WO RMVL TUBE OVARY Comment: Hysterectomy, ALBERTO FAMILY HISTORY Problem Relation Age of Onset Thyroid Mother graves disease Hypertension Father orthostatic and tia's other (Shy Drager) Father Breast Cancer Maternal Grandmother Breast Cancer Paternal Grandmother unsure Social History Tobacco Use Smoking status: Never Smokeless tobacco: Never Vaping Use Vaping Use: Never used Substance Use Topics Alcohol use: Yes Comment: wine with dinner at times Drug use: No Medications: Current Outpatient Medications Medication Sig L-METHYLFOLATE 15 mg tab Take by mouth once daily. calcium carbonate (CALCIUM 500) 500 mg calcium [...] puffs every four (4) hours as needed No current facility-administered medications for this visit. Allergies: ALLERGIES Allergen Reactions Molds [Other] Valdecoxib GI Upset, Diarrhea Physical Examination: Resp 18 Ht 5' 6" (1.68m) Wt 190 lb (86.2kg) BMI 30.68 kg/(m^2). Physical exam: General: A&O x 3; NAD. Cooperative throughout entire interview. Head: Atraumatic, normocephalic Neck: Trachea Midline Chest: Unlabored breathing Neuro: Grossly intact Right Shoulder Inspection: No malalignment, atrophy, erythema, swelling, warmth, or scapular winging. AC prominence normal Bony Palpation: No tenderness of the sternoclavicular joint,, the clavicle, the acromioclavicular joint, the greater tuberosity Soft tissue palpation: No tenderness to palpation of the lateral rotator cuff insertion, no tenderness to palpation of the subdeltoid bursa Active ROM Right Shoulder supine: Forward Flexion: 150 degrees Abduction: 90 degrees External Rotation at zero degrees of abduction: 50 degrees Internal rotation: Sacrum Active ROM Left Shoulder: Forward Flexion: 180 degrees Abduction: 180 degrees External Rotation at zero degrees of abduction: 60 degrees Internal rotation: L4 Special tests: Garza: negative Lift Off: negative Empty can: negative Strength Right Shoulder Deltoid: 5/5 Biceps: 5/5 Triceps 5/5 Supraspinatus 4/5 External rotation 4/5 Internal rotation 5/5 Assessment and Plan: 1. Traumatic complete tear of right rotator cuff, subsequent encounter - ICD9: V58.89, 840.4, ICD10: S46.011D (primary diagnosis) 2. S/P right rotator cuff repair - ICD9: V45.89, ICD10: Z98.890 The physical exam findings were discussed with the patient. The patient has full range of motion in forward elevation, external rotation while supine. She does still struggle with abduction. We discussed continuing physical therapy for strengthening of the rotator cuff. She is agreeable to this plan moving forward. I will see her back in 2 months for repeat evaluation. We discussed contacting the office with any questions, concerns, or to be seen prior to her next appointment. Georgia Bedoya DO Orthopedic Surgery, Sports Medicine Medical Decision Making: Problems: Moderate: 1+ chronic illnesses with change Risk: Low: Low risk from testing/treatment Medical Decision Making Level: 3 - Low documented in this encounter [facility] 04-28-2024 History of Present illness Narrative Program_ID:[id number] Access Code: [email or web address] URL: [email or web address] Date: 04-28-2024 Prepared By: Calvin White Program Notes Exercises - Seated Shoulder Flexion AAROM with Catalina Behind - 2-3 x daily - 7 x weekly - 2 sets - 10 reps - Shoulder External Rotation Reactive Isometrics - 1 x daily - 7 x weekly - 3 sets - 10 reps - Shoulder Flexion Wall Slide with Towel - 1 x daily - 7 x weekly - 3 sets - 10 reps - Sidelying Shoulder External Rotation - 1 x daily - 7 x weekly - 3 sets - 10 reps - Shoulder Internal Rotation with Resistance - 1 x daily - 7 x weekly - 2-3 sets - 10 reps - Shoulder Alphabet with Ball at Wall - 1 x daily - 7 x weekly - 2 sets - 10 reps - Scapular Retraction with Resistance - 1 x daily - 7 x weekly - 2 sets - 10 reps Episode Visit Count: 19 Therapist That Will Accept/Oversee The Plan Of Care: Calvin White Start of Care Date: 01/15/24 Onset Date: 01/01/24 Plan of Care Certification Date: 04/15/24 Next Certification Due Date: 07/16/24 Patient Identified by Name and Date of : Yes REHABILITATION AND SPORTS THERAPY PHYSICAL THERAPY TREATMENT NOTE ASSESSMENT: Carina Ham tolerated the session with fatigue and expected muscle soreness. She demonstrated improvements in ROM of R shoulder and endurance with exercise. The patient will continue to benefit from ongoing skilled physical therapy to progress toward set goals. PLAN FOR NEXT VISIT: Progress strengthening . SUBJECTIVE: Pt reports that she was on vacation last week. Pt states that she went to water aerobics, but did not use her R arm. Pain: Pain Pain Level: 0 Pain Location: Shoulder - Right Post Treatment Pain Post Treatment Pain Level: 0 Post Treatment Pain Location: Shoulder - Right OBJECTIVE MEASURES WITH LEVEL OF FUNCTION: UE AROM R Shoulder Flex: 75 Degrees R Shoulder External Rotation: 75 Degrees (with arm at 0 degrees of abdcution, 47 degrees with arm at slightly less than 90 degrees of abduction) UE PROM R Shoulder Flex: 170 Degrees (with pulleys) R Shoulder ABduction: 170 Degrees (with pulleys) TREATMENT: Therapeutic Exercise: 2: Pulleys x20 each flexion/scaption/abduction 3: Wall slides AAROM 3x10 4: wall alphabet A-Z in small range. 5: PiTB ER walkouts 2x10 6: PiTB IR 1x10, GTB 1x10 (GTB issued for HEP) 7: Scapular retractions with GTB 2x10 8: SL ER with .5# 3x10 9: Body blade 2x30 seconds ER/IR 10: PB rollouts into flexion in between strength exercises 4x10 total today Skilled Intervention: Patient was educated in proper exercise technique and purpose for exercises. Reviewed and educated patient on additions/changes for home exercise program as above (*). Skilled judgment was used in selection of appropriate interventions. Provided written instruction for home exercise program to facilitate proper performance and compliance. Correct performance of therapeutic exercises was facilitated with verbal and visual cuing. Billing Therapeutic Exercise Treatment Minutes: 42 Skilled Treatment Time Minutes (timed and untimed codes): 42 Total Session Time (minutes): 42 Session Start Time : 839 Session Stop Time : 921 RUBINA Fernandez PT documented in this encounter [facility] 04-17-2024 History of Present illness Narrative Episode Visit Count: 18 Therapist That Will Accept/Oversee The Plan Of Care: Calvin White Start of Care Date: 01/15/24 Onset Date: 01/01/24 Plan of Care Certification Date: 01/15/24 Next Certification Due Date: 04/15/24 Patient Identified by Name and Date of : Yes REHABILITATION AND SPORTS THERAPY PHYSICAL THERAPY TREATMENT NOTE ASSESSMENT: Carina aHm tolerated the session with fatigue and expected muscle soreness. She demonstrated difficulty with wall circles CW and CCW. The patient will continue to benefit from ongoing skilled physical therapy to progress toward set goals. PLAN FOR NEXT VISIT: take measurements as pt see's surgeon following next PT appointment. SUBJECTIVE: Pt reports that her back is twinging today. Pt states that her shoulder is doing well today. Pt states that she drove her stick shift car yesterday. Pain: Pain Pain Level: 0 Pain Location: Shoulder - Right Post Treatment Pain Post Treatment Pain Level: 0 Post Treatment Pain Location: Shoulder - Right Post Treatment Symptoms: Fatigued OBJECTIVE MEASURES WITH LEVEL OF FUNCTION: Increased difficulty with CCW movement vs. Clockwise on the wall. TREATMENT: Therapeutic Exercise: 2: Pulleys x20 each flexion/scaption/abduction 3: Wall slides AAROM 3x10 4: Pendulums x10 between strengthening exercises 5: SL ER 3x10 .5# 6: PB rollouts into flexion in between strength exercises 4x10 total today 7: PiTB ER walkouts 2x10 8: Wand flexion AAROM 3x5 9: PiTB IR 3x10 10: Wall circles CW and CCW x10 Skilled Intervention: Patient was educated in proper exercise technique and purpose for exercises. Skilled judgment was used in selection of appropriate interventions. Correct performance of therapeutic exercises was facilitated with verbal and visual cuing. Billing Therapeutic Exercise Treatment Minutes: 34 Skilled Treatment Time Minutes (timed and untimed codes): 34 Total Session Time (minutes): 34 Session Start Time : 08 Session Stop Time : 09 Sarah JonesRUBINA PT documented in this encounter [facility] 04-17-2024 History of Present illness Narrative Episode Visit Count: 17 Therapist That Will Accept/Oversee The Plan Of Care: Calvin White Start of Care Date: 01/15/24 Onset Date: 01/01/24 Plan of Care Certification Date: 01/15/24 Next Certification Due Date: 04/15/24 REHABILITATION AND SPORTS THERAPY PHYSICAL THERAPY TREATMENT NOTE ASSESSMENT: Carina Ham tolerated the session with fatigue, expected muscle soreness, and no issues. She demonstrated improvements in exercise endurance. The patient will continue to benefit from ongoing skilled physical therapy to progress toward set goals and to continue with post-operative protocol. PLAN FOR NEXT VISIT: SUBJECTIVE: Patient continues to do well, arm is slowly tolerating more reps of AAROM Pain: Pain Pain Level: 0 OBJECTIVE MEASURES WITH LEVEL OF FUNCTION: Form observed throughout session. Minimal shoulder shrug noted with AAROM flexion TREATMENT: Therapeutic Exercise: 2: Pulleys x20 each flexion/scaption/abduction 3: Wall slides AAROM 3x10 4: Pendulums x10 between strengthening exercises 5: PB rollouts into flexion in between strength exercises 4x10 total today 6: PiTB IR 3x10 7: PiTB ER walkouts 2x10 8: SL ER 3x10 .5# 9: *Wand flexion AAROM 3x5 Skilled Intervention: Patient was educated in proper exercise technique and purpose for exercises. Skilled judgment was used in selection of appropriate interventions. Correct performance of therapeutic exercises was facilitated with verbal, visual, and tactile cuing. Extensive cuing to prevent shoulder shrug with wand flexion Billing Therapeutic Exercise Treatment Minutes: 31 Skilled Treatment Time Minutes (timed and untimed codes): 31 Total Session Time (minutes): 31 Session Start Time : 1004 Session Stop Time : 1035 Calvin White PT Program_ID:[id number] Access Code: [email or web address] URL: [email or web address] centerAround [facility] [employer] Date: 04-14-2024 Prepared By: Calvin White Program Notes Exercises - Seated Shoulder Flexion AAROM with Catalina Behind - 2-3 x daily - 7 x weekly - 2 sets - 10 reps - Shoulder External Rotation Reactive Isometrics - 1 x daily - 7 x weekly - 3 sets - 10 reps - Shoulder Internal Rotation Reactive Isometrics - 1 x daily - 7 x weekly - 3 sets - 10 reps - Shoulder Flexion Overhead with Dowel - 1 x daily - 7 x weekly - 3 sets - 10 reps - Shoulder Flexion Wall Slide with Towel - 1 x daily - 7 x weekly - 3 sets - 10 reps - Sidelying Shoulder External Rotation - 1 x daily - 7 x weekly - 3 sets - 10 reps - Shoulder Internal Rotation with Resistance - 1 x daily - 7 x weekly - 2-3 sets - 10 reps - Standing Shoulder Flexion AAROM with Dowel - 1 x daily - 7 x weekly - 3 sets - 5 reps documented in this encounter [facility] 04-10-2024 History of Present illness Narrative Episode Visit Count: 16 Therapist That Will Accept/Oversee The Plan Of Care: Calvin White Start of Care Date: 01/15/24 Onset Date: 01/01/24 Plan of Care Certification Date: 01/15/24 Next Certification Due Date: 04/15/24 REHABILITATION AND SPORTS THERAPY PHYSICAL THERAPY TREATMENT NOTE ASSESSMENT: Carina Ham tolerated the session with fatigue, expected muscle soreness, and no issues. She demonstrated improvements in shoulder strength and tolerance for exercises. The patient will continue to benefit from ongoing skilled physical therapy to progress toward set goals and to continue with post-operative protocol. PLAN FOR NEXT VISIT: Continue progressing AAROM to AROM exercises SUBJECTIVE: Patient doing well, did 2 rounds of exercises before coming today Pain: Pain Pain Level: 0 OBJECTIVE MEASURES WITH LEVEL OF FUNCTION: UE PROM R Shoulder Flex: 165 Degrees R Shoulder ABduction: 125 Degrees R Shoulder External Rotation: 70 Degrees TREATMENT: Therapeutic Exercise: 2: PROM shoulder flexion, ER, abduction to tolerable range x5 each 3: Wall slides AAROM 1x7, 1x3 (patient did 2 sets of 6 reps at home prior to coming in today) 4: Pulleys x20 each flexion/scaption/abduction 5: Pendulums x10 between strengthening exercises 6: PiTB IR 3x10 7: PiTB ER walkouts 2x10 8: SL ER 3x10 .5# Skilled Intervention: Patient was educated in proper exercise technique and purpose for exercises. Skilled judgment was used in selection of appropriate interventions. Provided written instruction for home exercise program to facilitate proper performance and compliance. Correct performance of therapeutic exercises was facilitated with verbal, visual, and tactile cuing. Billing Therapeutic Exercise Treatment Minutes: 32 Skilled Treatment Time Minutes (timed and untimed codes): 32 Total Session Time (minutes): 32 Session Start Time : 09 Session Stop Time : 931 Calvin White PT documented in this encounter [facility] 04-07-2024 History of Present illness Narrative Episode Visit Count: 15 Therapist That Will Accept/Oversee The Plan Of Care: Calvin White Start of Care Date: 01/15/24 Onset Date: 01/01/24 Plan of Care Certification Date: 01/15/24 Next Certification Due Date: 04/15/24 REHABILITATION AND SPORTS THERAPY PHYSICAL THERAPY TREATMENT NOTE ASSESSMENT: Carina Ham tolerated the session with fatigue and no issues. She demonstrated improvements in shoulder tolerance for strengthening with AAROM and AROM exercises. The patient will continue to benefit from ongoing skilled physical therapy to progress toward set goals and to continue with post-operative protocol. PLAN FOR NEXT VISIT: Continue with current exercises, progressing volume. May attempt AROM again next week SUBJECTIVE: No issues today, patient feels exercises going well Pain: Pain Pain Level: 0 Pain Location: Shoulder - Right OBJECTIVE MEASURES WITH LEVEL OF FUNCTION: TREATMENT: Therapeutic Exercise: 2: SL ER 3x10, .5# (used lacrosse ball for weight) 3: Wall slides AAROM 2x6 4: Flexion roll outs on 85 cm physioball 2x10 5: Pendulums x10 between strengthening exercises 6: PiTB IR walk outs 2x10 7: OTB ER walk outs 2x10 8: *PiTB IR 3x10 9: Attempted AROM unassisted and assisted and patient stated this was painful and ceased after 1 rep Skilled Intervention: Patient was educated in proper exercise technique and purpose for exercises. Skilled judgment was used in selection of appropriate interventions. Provided written instruction for home exercise program to facilitate proper performance and compliance. Correct performance of therapeutic exercises was facilitated with verbal, visual, and tactile cuing. Billing Therapeutic Exercise Treatment Minutes: 30 Skilled Treatment Time Minutes (timed and untimed codes): 30 Total Session Time (minutes): 30 Session Start Time : 914 Session Stop Time : 944 Calvin White PT Program_ID:[id number] Access Code: [email or web address] URL: [email or web address] Date: 04-07-2024 Prepared By: Calvin White Program Notes Exercises - Seated Shoulder External Rotation AAROM with Dowel - 1 x daily - 7 x weekly - 3 sets - 10 reps - Seated Shoulder Flexion AAROM with Catalina Behind - 2-3 x daily - 7 x weekly - 2 sets - 10 reps - Seated Shoulder Flexion AAROM with Dowel - 1 x daily - 7 x weekly - 3 sets - 10 reps - Shoulder External Rotation Reactive Isometrics - 1 x daily - 7 x weekly - 3 sets - 10 reps - Shoulder Internal Rotation Reactive Isometrics - 1 x daily - 7 x weekly - 3 sets - 10 reps - Shoulder Flexion Overhead with Dowel - 1 x daily - 7 x weekly - 3 sets - 10 reps - Shoulder Flexion Wall Slide with Towel - 1 x daily - 7 x weekly - 3 sets - 10 reps - Sidelying Shoulder External Rotation - 1 x daily - 7 x weekly - 3 sets - 10 reps - Shoulder Internal Rotation with Resistance - 1 x daily - 7 x weekly - 2-3 sets - 10 reps documented in this encounter [facility] 04-03-2024 History of Present illness Narrative Episode Visit Count: 14 Therapist That Will Accept/Oversee The Plan Of Care: Calvin White Start of Care Date: 01/15/24 Onset Date: 01/01/24 Plan of Care Certification Date: 01/15/24 Next Certification Due Date: 04/15/24 REHABILITATION AND SPORTS THERAPY PHYSICAL THERAPY TREATMENT NOTE ASSESSMENT: Carina Ham tolerated the session with fatigue, expected muscle soreness, and no issues. She demonstrated improvements in exercise tolerance and AAROM and PROM. The patient will continue to benefit from ongoing skilled physical therapy to progress toward set goals and to continue with post-operative protocol. PLAN FOR NEXT VISIT: Continue progressing current exercises with volume or weight increases SUBJECTIVE: Patient doing well, no issues. She is getting over COVID but feels great today Pain: Pain Pain Level: 0 Pain Location: Shoulder - Right OBJECTIVE MEASURES WITH LEVEL OF FUNCTION: Springy end feel all end ranges TREATMENT: Therapeutic Exercise: 1: Shoulder pulleys x30 into flexion and abduction 2: SL ER 3x10, .5# (patient held a lacrosse ball in her hand for weight as a 1# DB was too much) 3: Wall slides AAROM 1x9, 1x1 (educated about overall volume, will attempt 2x6 at home this week) 4: Flexion roll outs on 85 cm physioball 4x10 (mixed into 2 rounds between strengthening exercises) 8: PiTB IR walk outs 2x10 9: OTB ER walk outs 2x10 Skilled Intervention: Patient was educated in proper exercise technique and purpose for exercises. Skilled judgment was used in selection of appropriate interventions. Provided written instruction for home exercise program to facilitate proper performance and compliance. Correct performance of therapeutic exercises was facilitated with verbal, visual, and tactile cuing. Billing Therapeutic Exercise Treatment Minutes: 40 Skilled Treatment Time Minutes (timed and untimed codes): 40 Total Session Time (minutes): 40 Session Start Time : 0900 Session Stop Time : 939 Calvin White PT documented in this encounter [facility] 03-31-2024 History of Present illness Narrative Episode Visit Count: 13 Therapist That Will Accept/Oversee The Plan Of Care: Calvin White Start of Care Date: 01/15/24 Onset Date: 01/01/24 Plan of Care Certification Date: 01/15/24 Next Certification Due Date: 04/15/24 Patient Identified by Name and Date of : Yes REHABILITATION AND SPORTS THERAPY PHYSICAL THERAPY TREATMENT NOTE ASSESSMENT: Carina Ham tolerated the session with fatigue and expected muscle soreness. She demonstrated difficulty with wall slides. The patient will continue to benefit from ongoing skilled physical therapy to progress toward set goals. PLAN FOR NEXT VISIT: Continue with phase 3 exercises SUBJECTIVE: Pt reports that she is a little tired today, had COVID. Pt states that her shoulder is feeling fine. Pain: Pain Pain Level: 0 Pain Location: Shoulder - Right Post Treatment Pain Post Treatment Pain Location: Shoulder - Right OBJECTIVE MEASURES WITH LEVEL OF FUNCTION: Slight R scapular winging noted. TREATMENT: Therapeutic Exercise: 1: Shoulder pulleys x30 into flexion and abduction 2: SL ER 3x10 3: wall slides AAROM 2x8 (slight scapular winging) 4: Wand AAROM flexion 3x5 5: Body blade ER/IR 3x30 seconds 6: Body blade with arm at side, up and down oscillations 3x30 seconds 7: Flexion roll outs on 85 cm physioball 2x10 8: PiTB IR walk outs x10 9: OTB ER walk outs x 10 Skilled Intervention: Patient was educated in proper exercise technique and purpose for exercises. Skilled judgment was used in selection of appropriate interventions. Correct performance of therapeutic exercises was facilitated with verbal and visual cuing. Billing Therapeutic Exercise Treatment Minutes: 39 Skilled Treatment Time Minutes (timed and untimed codes): 39 Total Session Time (minutes): 39 Session Start Time : 844 Session Stop Time : 923 RUBINA Fernandez PT documented in this encounter [facility] 03-25-2024 History of Present illness Narrative Episode Visit Count: 12 Therapist That Will Accept/Oversee The Plan Of Care: Calvin White Start of Care Date: 01/15/24 Onset Date: 01/01/24 Plan of Care Certification Date: 01/15/24 Next Certification Due Date: 04/15/24 REHABILITATION AND SPORTS THERAPY PHYSICAL THERAPY TREATMENT NOTE ASSESSMENT: Carina Ham tolerated the session with fatigue, expected muscle soreness, and no issues. She demonstrated improvements in AAROM tolerance and PROM of right shoulder. The patient will continue to benefit from ongoing skilled physical therapy to progress toward set goals and to continue with post-operative protocol. PLAN FOR NEXT VISIT: Continue per protocol SUBJECTIVE: Patient did well on her trip. She is out of the sling fully and motion is feeling better Pain: Pain Pain Level: 0 Pain Location: Shoulder - Right Description: Aching, Sore Frequency: Continuous OBJECTIVE MEASURES WITH LEVEL OF FUNCTION: UE PROM R Shoulder Flex: 162 Degrees R Shoulder ABduction: 125 Degrees R Shoulder External Rotation: 65 Degrees TREATMENT: Therapeutic Exercise: 1: Wand ER 2x10 2: PROM flexion, ER, abduction 2x10 each 3: Shoulder pulleys x30 into flexion and abduction 4: *SL ER 3x10 5: *Wall slides 3x5 6: *Wand AAROM flexion 3x5 Skilled Intervention: Patient was educated in proper exercise technique and purpose for exercises. Skilled judgment was used in selection of appropriate interventions. Provided written instruction for home exercise program to facilitate proper performance and compliance. Correct performance of therapeutic exercises was facilitated with verbal, visual, and tactile cuing. Billing Therapeutic Exercise Treatment Minutes: 30 Skilled Treatment Time Minutes (timed and untimed codes): 30 Total Session Time (minutes): 30 Session Start Time : 1035 Session Stop Time : 1105 Calvin White PT Program_ID:[id number] Access Code: [email or web address] URL: [email or web address] Date: 03-25-2024 Prepared By: Calvin White Program Notes Exercises - Flexion-Extension Shoulder Pendulum with Table Support - 1 x daily - 7 x weekly - 3 sets - 10 reps - Seated Shoulder External Rotation AAROM with Dowel - 1 x daily - 7 x weekly - 3 sets - 10 reps - Seated Shoulder Flexion AAROM with Catalina Behind - 2-3 x daily - 7 x weekly - 2 sets - 10 reps - Seated Shoulder Flexion AAROM with Dowel - 1 x daily - 7 x weekly - 3 sets - 10 reps - Shoulder External Rotation Reactive Isometrics - 1 x daily - 7 x weekly - 3 sets - 10 reps - Shoulder Internal Rotation Reactive Isometrics - 1 x daily - 7 x weekly - 3 sets - 10 reps - Shoulder Flexion Overhead with Dowel - 1 x daily - 7 x weekly - 3 sets - 10 reps - Shoulder Flexion Wall Slide with Towel - 1 x daily - 7 x weekly - 3 sets - 10 reps - Sidelying Shoulder External Rotation - 1 x daily - 7 x weekly - 3 sets - 10 reps documented in this encounter [facility] 03-11-2024 Note HNO ID: [id number] Author: GEORGIA BEDOYA, DO Service: ? Author Type: Physician Type: Progress Notes Filed: 03/11/2024 13:57 Note Text: Patient presents with: Right Shoulder - Post Op, Pain Carina Ham is a 68 year old female who presents for follow-up right shoulder arthroscopy with rotator cuff repair and biceps tenodesis on 01/01/2024. The patient has been attending physical therapy and working on active assisted range of motion of her right shoulder. She does not report any continued postoperative pain. She has been occasionally wearing her sling when out and about. Reviewed nursing note and current pain scale. PAST MEDICAL HISTORY Diagnosis Date Allergic rhinitis, cause unspecified Allergic rhinitis Benign neoplasm of colon Diverticulosis of colon (without mention of hemorrhage) Exercise-induced asthma Hypothyroidism MTHFR mutation Traumatic complete tear of right rotator cuff PAST SURGICAL HISTORY Procedure Laterality Date APPENDECTOMY COLONOSCOPY FLX DX W/COLLJ SPEC WHEN PFRMD 06/12/2007 Colonoscopy DILATION AND CURETTAGE DXAND/THER NONOBSTETRIC Dilation AND curettage LAPS SURG CHOLECYSTECTOMY W/CHOLANGIOGRAPHY 03/26/[address] Ying OOPHORECTOMY PARTIAL/TOTAL UNI/BI with the right remaining, but no tube THYROIDECTOMY SUBTOTAL/PARTIAL 12/2016 TOTAL ABDOMINAL HYSTERECT W/WO RMVL TUBE OVARY Hysterectomy, ALBERTO FAMILY HISTORY Problem Relation Age of Onset Thyroid Mother graves disease Hypertension Father orthostatic and tia's other (Nilam Conrader) Father Breast Cancer Maternal Grandmother Breast Cancer Paternal Grandmother unsure Social History Tobacco Use Smoking status: Never Smokeless tobacco: Never Vaping Use Vaping Use: Never used Substance Use Topics Alcohol use: Yes Comment: wine with dinner at times Drug use: No Medications: Current Outpatient Medications Medication Sig ibuprofen (MOTRIN) 800 mg tablet Take 1 tablet by mouth every 8 hours as needed for pain. acetaminophen (TYLENOL EXTRA STRENGTH) 500 mg tablet Take 2 tablets by mouth every 6 hours as needed for pain. L-METHYLFOLATE 15 mg tab Take by mouth once daily. calcium carbonate (CALCIUM 500) 500 mg calcium [...] puffs every four (4) hours as needed No current facility-administered medications for this visit. Allergies: ALLERGIES Allergen Reactions Molds [Other] Valdecoxib GI Upset, Diarrhea Physical Examination: Resp 20 Ht 5' 6" (1.68m) Wt 195 lb (88.5kg) BMI 31.49 kg/(m2). Physical exam: General: AANDO x 3; NAD. Cooperative throughout entire interview. Head: Atraumatic, normocephalic Neck: Supple Chest: Unlabored breathing Neuro: Grossly intact Right Shoulder Inspection: Incisions well healed Passive ROM Right Shoulder: Forward Flexion: 160 degrees Abduction: 110 degrees External Rotation at zero degrees of abduction: 50 degrees Internal rotation: 60 degrees Active range of motion Right elbow Flexion: 140 degrees Extension: 0 degrees Strength Right Shoulder Deltoid: 5/5 Biceps: 5/5 Triceps 5/5 AIN, PIN, ulnar, median, radial nerves intact Axillary and musculocutaneous nerves intact Radial pulse +2 / 4, palpable Distal extremity warm and well-perfused, capillary refill brisk Assessment and Plan: 1. Traumatic complete tear of right rotator cuff, subsequent encounter - ICD9: V58.89, 840.4, ICD10: S46.011D (primary diagnosis) 2. S/P right rotator cuff repair - ICD9: V45.89, ICD10: Z98.890 The physical exam findings were discussed with the patient. On assessment of the patient's passive range of motion, she is able to forward elevate to about 160 degrees today and abduct to about 110 degrees. Her external rotation is 50 degrees. She may discontinue her sling at this time. She may proceed with phase 3 strengthening at the 12-week ellis. The patient is leaving for 2 weeks for a cruise in [place] and will resume physical therapy following her trip. I encouraged her to continue her exercises while abroad. I will see her back in 6 weeks for repeat evaluation. All questions were answered today and patient is agreeable to this plan. Georgia Bedoya, Orthopedic Surgery, Sports Medicine [facility] 03-11-2024 History of Present illness Narrative Patient presents with: Right Shoulder - Post Op, Pain Carina Ham is a 68 year old female who presents for follow-up right shoulder arthroscopy with rotator cuff repair and biceps tenodesis on 01/01/2024. The patient has been attending physical therapy and working on active assisted range of motion of her right shoulder. She does not report any continued postoperative pain. She has been occasionally wearing her sling when out and about. Reviewed nursing note and current pain scale. PAST MEDICAL HISTORY Diagnosis Date Allergic rhinitis, cause unspecified Allergic rhinitis Benign neoplasm of colon Diverticulosis of colon (without mention of hemorrhage) Exercise-induced asthma Hypothyroidism MTHFR mutation Traumatic complete tear of right rotator cuff PAST SURGICAL HISTORY Procedure Laterality Date APPENDECTOMY COLONOSCOPY FLX DX W/COLLJ SPEC WHEN PFRMD 06/12/2007 Colonoscopy DILATION & CURETTAGE DX&/THER NONOBSTETRIC Dilation & curettage LAPS SURG CHOLECYSTECTOMY W/CHOLANGIOGRAPHY 03/26/[address] Ying OOPHORECTOMY PARTIAL/TOTAL UNI/BI with the right remaining, but no tube THYROIDECTOMY SUBTOTAL/PARTIAL 12/2016 TOTAL ABDOMINAL HYSTERECT W/WO RMVL TUBE OVARY Hysterectomy, ALBERTO FAMILY HISTORY Problem Relation Age of Onset Thyroid Mother graves disease Hypertension Father orthostatic and tia's other (Nilam Umanzor) Father Breast Cancer Maternal Grandmother Breast Cancer Paternal Grandmother unsure Social History Tobacco Use Smoking status: Never Smokeless tobacco: Never Vaping Use Vaping Use: Never used Substance Use Topics Alcohol use: Yes Comment: wine with dinner at times Drug use: No Medications: Current Outpatient Medications Medication Sig ibuprofen (MOTRIN) 800 mg tablet Take 1 tablet by mouth every 8 hours as needed for pain. acetaminophen (TYLENOL EXTRA STRENGTH) 500 mg tablet Take 2 tablets by mouth every 6 hours as needed for pain. L-METHYLFOLATE 15 mg tab Take by mouth once daily. calcium carbonate (CALCIUM 500) 500 mg calcium [...] puffs every four (4) hours as needed No current facility-administered medications for this visit. Allergies: ALLERGIES Allergen Reactions Molds [Other] Valdecoxib GI Upset, Diarrhea Physical Examination: Resp 20 Ht 5' 6" (1.68m) Wt 195 lb (88.5kg) BMI 31.49 kg/(m^2). Physical exam: General: A&O x 3; NAD. Cooperative throughout entire interview. Head: Atraumatic, normocephalic Neck: Supple Chest: Unlabored breathing Neuro: Grossly intact Right Shoulder Inspection: Incisions well healed Passive ROM Right Shoulder: Forward Flexion: 160 degrees Abduction: 110 degrees External Rotation at zero degrees of abduction: 50 degrees Internal rotation: 60 degrees Active range of motion Right elbow Flexion: 140 degrees Extension: 0 degrees Strength Right Shoulder Deltoid: 5/5 Biceps: 5/5 Triceps 5/5 AIN, PIN, ulnar, median, radial nerves intact Axillary and musculocutaneous nerves intact Radial pulse +2 / 4, palpable Distal extremity warm and well-perfused, capillary refill brisk Assessment and Plan: 1. Traumatic complete tear of right rotator cuff, subsequent encounter - ICD9: V58.89, 840.4, ICD10: S46.011D (primary diagnosis) 2. S/P right rotator cuff repair - ICD9: V45.89, ICD10: Z98.890 The physical exam findings were discussed with the patient. On assessment of the patient's passive range of motion, she is able to forward elevate to about 160 degrees today and abduct to about 110 degrees. Her external rotation is 50 degrees. She may discontinue her sling at this time. She may proceed with phase 3 strengthening at the 12-week ellis. The patient is leaving for 2 weeks for a cruise in [place] and will resume physical therapy following her trip. I encouraged her to continue her exercises while abroad. I will see her back in 6 weeks for repeat evaluation. All questions were answered today and patient is agreeable to this plan. Georgia Bedoya DO Orthopedic Surgery, Sports Medicine REVIEW OF SYSTEMS: GENERAL: Well developed, well nourished. No acute distress PAIN: Negative for pain, history of chronic pain or current treatment for chronic pain conditions and Pain right shoulder CARDIOVASCULAR: Negative for chest pain, leg swelling and palpations. MSK: Negative for joint swelling SKIN: Negative for lesions, rash, itching, metal sensitivity NEURO: Negative for seizure, trauma, numbness/tingling of extremities. ENDOCRINE: Negative for diabetic associated symptoms HEMATOLOGY: Negative for excessive bleeding, clots, bleeding disorders. documented in this encounter [facility] 03-11-2024 Note HNO ID: [id number] Author: ALEX BANSAL LPN Service: ? Author Type: LICENSED NURSE Type: Progress Notes Filed: 03/11/2024 13:57 Note Text: REVIEW OF SYSTEMS: GENERAL: Well developed, well nourished. No acute distress PAIN: Negative for pain, history of chronic pain or current treatment for chronic pain conditions and Pain right shoulder CARDIOVASCULAR: Negative for chest pain, leg swelling and palpations. MSK: Negative for joint swelling SKIN: Negative for lesions, rash, itching, metal sensitivity NEURO: Negative for seizure, trauma, numbness/tingling of extremities. ENDOCRINE: Negative for diabetic associated symptoms HEMATOLOGY: Negative for excessive bleeding, clots, bleeding disorders. [facility] 03-10-2024 History of Present illness Narrative Program_ID:[id number] Access Code: [email or web address] URL: [email or web address] Date: 03-10-2024 Prepared By: Calvin White Program Notes Exercises - Flexion-Extension Shoulder Pendulum with Table Support - 1 x daily - 7 x weekly - 3 sets - 10 reps - Seated Shoulder External Rotation AAROM with Dowel - 1 x daily - 7 x weekly - 3 sets - 10 reps - Isometric Shoulder Flexion at Wall - 1 x daily - 7 x weekly - 3 sets - 10 reps - Isometric Shoulder External Rotation at Wall - 1 x daily - 7 x weekly - 3 sets - 10 reps - Standing Isometric Shoulder Internal Rotation at Doorway - 1 x daily - 7 x weekly - 3 sets - 10 reps - Seated Shoulder Flexion AAROM with Catalina Behind - 2-3 x daily - 7 x weekly - 2 sets - 10 reps - Seated Shoulder Flexion AAROM with Dowel - 1 x daily - 7 x weekly - 3 sets - 10 reps - Shoulder External Rotation Reactive Isometrics - 1 x daily - 7 x weekly - 3 sets - 10 reps - Shoulder Internal Rotation Reactive Isometrics - 1 x daily - 7 x weekly - 3 sets - 10 reps - Shoulder Flexion Overhead with Dowel - 1 x daily - 7 x weekly - 3 sets - 10 reps Images from the original note were not included. Episode Visit Count: 11 Therapist That Will Accept/Oversee The Plan Of Care: Calvin White Start of Care Date: 01/15/24 Onset Date: 01/01/24 Plan of Care Certification Date: 01/15/24 Next Certification Due Date: 04/15/24 Patient Identified by Name and Date of : Yes REHABILITATION AND SPORTS THERAPY PHYSICAL THERAPY PROGRESS REPORT PLAN OF CARE UPDATE: Assessment: Carina Ham demonstrates improvements in right shoulder ROM with active assistance, and overall reduced pain levels. Ongoing strength deficits resulting in decreased right shoulder AROM. Continues to demonstrate impairments with ADL's. She has progressed toward goals as outlined below. Patient continues to present with impairments in ADL's, independence in exercise, overall function, range of motion, soft tissue healing, strength, and symptom management that interfere with heavy exertion, lifting, physical activities, recreational activities, sleeping, reaching behind back, reaching overhead, use hand with arm at shoulder level, cleaning, cooking, dressing, grooming . Current prognosis is Good due to: current objective clinical presentation, good overall health status, acuteness of condition, positive past response to therapy, within-session changes, good support system/ coping skills . She will benefit from continued skilled therapy services to meet the updated goals for this plan of care as noted below. Continue to progress per protocol. Goals updated on 03/10/2024. Goals for Episode of Care: created on 01/15/2024 through 04/15/24 [place] in home exercise program. Met, on-going Patient will decrease pain rating by 2 points to meet minimal clinical important difference for numeric pain rating scale. -met, continue to assess REVISED (to include AROM) Patient will increase PROM and AROM of R shoulder to WNL to allow pt to to improve performance of ADLs. Progressing, ongoing difficulty with pure shoulder abduction Patient Goals: Return to normal function in ADLs, as well as return to swimming backstrokes. Patient Goals: Return to normal function in ADLs, as well as return to swimming backstrokes. Planned Interventions, Frequency, and Duration: 2x/week, 4 weeks Total Number of Visits Planned: 8 Patient to be seen for Therapeutic exercise (81617), Neuromuscular re-education (88984), Self-snf management (13516), Manual therapy (43996), Therapeutic activities (62739), Patient/Family/Caregiver Education, Body Mechanics Training PLAN FOR NEXT VISIT: Continue per protocol, progress ROM gravity eliminated verse, against gravity SUBJECTIVE: Patient notes "knot" in her upper back has been resolving. Does not wear the sling in the house. Leaves for 2 weeks on . Sees surgeon tomorrow. Patient Goals: Return to normal function in ADLs, as well as return to swimming backstrokes. Functional Limitations: heavy exertion, lifting, physical activities, recreational activities, sleeping, reaching behind back, reaching overhead, use hand with arm at shoulder level, cleaning, cooking, dressing, grooming Pain: Pain Pain Level: 1 Pain Location: Shoulder - Right Post Treatment Pain Post Treatment Pain Level: Worse (sore) Post Treatment Pain Location: Shoulder - Right PROMIS Scales 03/06/2024 02/24/2024 02/07/2024 Higher is Better Phys Func - Score 32 (moderate dysfunction) 36 (moderate dysfunction) Phys Func - Percentile 4 8 Self-Eff Symptom - Score 51 (Average) Self-Eff Symptom - Percentile 54 T-scores: mean of general population = 50. [...] LEVEL OF FUNCTION: Posture / Alignment Posture: Forward head, Rounded shoulders Shoulder Observations R Shoulder Presents with: Incision Incision: Well healed, no signs of infection R Shoulder Palpation Tenderness: (tenderness with exercises at teres minor) UE PROM R Shoulder Flex: 148 Degrees (AAROM pulleys) R Shoulder ABduction: 147 Degrees (AAROM pulleys, slight scaption) R Shoulder External Rotation: 45 Degrees UE and Cervical Strength R UE Strength: Not formally assessed, unable to perform active shoulder flexion to 90 degrees TREATMENT: Therapeutic Exercise: 1: Re-assessment per above 2: Dowel ER AAROM at neutral 2x10 3: Shoulder pulleys x30 into flexion and abduction 4: Seated ER AROM x10 5: Wall slide with contralateral UE assistance concentric, slow eccentric lower into flexion x10, terminated due to pain 6: *Standing wand flexion diagonal AAROM 2x10 7: Dowel ER AAROM at neutral 2x10 8: *PiTB walkouts into ER and IR 2x10 each, regressed ER walk out to orange TB due to pain with pink Skilled Intervention: Patient was educated in proper exercise technique and purpose for exercises. Reviewed and educated patient on additions/changes for home exercise program as above (*). Skilled judgment was used in selection of appropriate interventions. Provided written instruction for home exercise program to facilitate proper performance and compliance. Correct performance of therapeutic exercises was facilitated with verbal and visual cuing. Billing Therapeutic Exercise Treatment Minutes: 41 Skilled Treatment Time Minutes (timed and untimed codes): 41 Total Session Time (minutes): 41 Session Start Time : 1032 Session Stop Time : 1113 Tristan Burnett PT, DPT documented in this encounter [facility] 03-06-2024 History of Present illness Narrative Episode Visit Count: 10 Therapist That Will Accept/Oversee The Plan Of Care: Calvin White Start of Care Date: 01/15/24 Onset Date: 01/01/24 Plan of Care Certification Date: 01/15/24 Next Certification Due Date: 04/15/24 REHABILITATION AND SPORTS THERAPY PHYSICAL THERAPY TREATMENT NOTE ASSESSMENT: Carina Ham tolerated the session with decreased symptoms. She demonstrated difficulty with AAROM exercises, and needed to regress back to iso progressions. The patient will continue to benefit from ongoing skilled physical therapy to progress toward set goals and to continue with post-operative protocol. PLAN FOR NEXT VISIT: Patient will be leaving for 2 weeks. Please talk to Calvin about instructions for patient while she is gone. See Georiga Bedoya's protocol on the hub for RTCr protocol SUBJECTIVE: No issues since last being seen, cannot do wall slides as she feels she has zero strength in the shoulder Pain: Pain Pain Level: 0 Pain Location: Shoulder - Right OBJECTIVE MEASURES WITH LEVEL OF FUNCTION: UE PROM R Shoulder Flex: 151 Degrees (155 with pulleys) R Shoulder ABduction: 102 Degrees R Shoulder External Rotation: 55 Degrees TREATMENT: Therapeutic Exercise: 1: Shoulder pulleys x30 into flexion and abduction 2: Countertop wax on wax off 2x10 [address] 3: Ceased wall slides due to pain and weakness 4: PROM shoulder flexion, abduction, 5: *PiTB walkouts into ER and IR 2x10 each (stressed no pain, simply muscle stress or effort should be felt) 6: *Wand flexion AAROM 2x10 7: Discussed regressions if patient should need to regress wand flexion or walkouts; go back to iso holds Skilled Intervention: Patient was educated in proper exercise technique and purpose for exercises. Skilled judgment was used in selection of appropriate interventions. Provided written instruction for home exercise program to facilitate proper performance and compliance. Correct performance of therapeutic exercises was facilitated with verbal, visual, and tactile cuing. Billing Therapeutic Exercise Treatment Minutes: 45 Skilled Treatment Time Minutes (timed and untimed codes): 45 Total Session Time (minutes): 45 Session Start Time : 1300 Session Stop Time : 1345 Calvin White PT Program_ID:[id number] Access Code: [email or web address] URL: [email or web address] Date: 03-06-2024 Prepared By: Calvin White Program Notes Exercises - Seated Shoulder External Rotation AAROM with Dowel - 1 x daily - 7 x weekly - 3 sets - 10 reps - Isometric Shoulder Flexion at Wall - 1 x daily - 7 x weekly - 3 sets - 10 reps - Isometric Shoulder External Rotation at Wall - 1 x daily - 7 x weekly - 3 sets - 10 reps - Standing Isometric Shoulder Internal Rotation at Doorway - 1 x daily - 7 x weekly - 3 sets - 10 reps - Seated Shoulder Flexion AAROM with Catalina Behind - 2-3 x daily - 7 x weekly - 2 sets - 10 reps - Seated Shoulder Flexion AAROM with Dowel - 1 x daily - 7 x weekly - 3 sets - 10 reps - Shoulder External Rotation Reactive Isometrics - 1 x daily - 7 x weekly - 3 sets - 10 reps - Shoulder Internal Rotation Reactive Isometrics - 1 x daily - 7 x weekly - 3 sets - 10 reps documented in this encounter [facility] 03-03-2024 History of Present illness Narrative Episode Visit Count: 9 Therapist That Will Accept/Oversee The Plan Of Care: Calvin White Start of Care Date: 01/15/24 Onset Date: 01/01/24 Plan of Care Certification Date: 01/15/24 Next Certification Due Date: 04/15/24 Patient Identified by Name and Date of : Yes REHABILITATION AND SPORTS THERAPY PHYSICAL THERAPY TREATMENT NOTE ASSESSMENT: Carina Ham tolerated the session with fatigue and expected muscle soreness. She demonstrated improvements in flexibility of R shoulder with use of pulleys. The patient will continue to benefit from ongoing skilled physical therapy to progress toward set goals. PLAN FOR NEXT VISIT: Continue per protocol, SUBJECTIVE: Pt reports that her R shoulder is feeling good today. Pt reports that she has to keep shortening her pulleys at home due to being able to raise her arm higher. Pain: Pain Pain Level: 0 Pain Location: Shoulder - Right Post Treatment Pain Post Treatment Pain Level: 0 Post Treatment Pain Location: Shoulder - Right OBJECTIVE MEASURES WITH LEVEL OF FUNCTION: Tightness in elbow this visit. TREATMENT: Therapeutic Exercise: 1: Shoulder pulleys x30 into flexion and abduction (abduction with palm facing up) 2: Countertop wax on wax off 2x10 each way 3: Wall slides 1x10 4: PROM shoulder flexion and ER 3x15 each 5: Seated AROM IR/ER 3x10 in tolerable range 6: PROM elbow extension x10 Skilled Intervention: Patient was educated in proper exercise technique and purpose for exercises. Skilled judgment was used in selection of appropriate interventions. Correct performance of therapeutic exercises was facilitated with verbal and visual cuing. Billing Therapeutic Exercise Treatment Minutes: 39 Skilled Treatment Time Minutes (timed and untimed codes): 39 Total Session Time (minutes): 39 Session Start Time : 08 Session Stop Time : 838 RUBINA Fernandez PT documented in this encounter [facility] 02-28-2024 History of Present illness Narrative Episode Visit Count: 8 Therapist That Will Accept/Oversee The Plan Of Care: Calvin White Start of Care Date: 01/15/24 Onset Date: 01/01/24 Plan of Care Certification Date: 01/15/24 Next Certification Due Date: 04/15/24 REHABILITATION AND SPORTS THERAPY PHYSICAL THERAPY TREATMENT NOTE ASSESSMENT: Carina Ham tolerated the session with fatigue and no issues. She demonstrated improvements in tolerance for AAROm and AROM exercises. The patient will continue to benefit from ongoing skilled physical therapy to progress toward set goals. PLAN FOR NEXT VISIT: SUBJECTIVE: Patient has been able to accomplish some small third rigger without increasing pain in the right shoulder. 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 Pain: Pain Pain Level: 0 Pain Location: Shoulder - Right OBJECTIVE MEASURES WITH LEVEL OF FUNCTION: UE PROM R Shoulder Flex: 152 Degrees R Shoulder External Rotation: 55 Degrees TREATMENT: Therapeutic Exercise: 1: PROM shoulder flexion and ER 3x15 each 2: Shoulder pulleys x30 into flexion and abduction 3: *Wall slides 1x10 4: *Countertop wax on wax off 2x10 [address] way 5: *Seated AROM IR/ER 3x10 in tolerable range Skilled Intervention: Patient was educated in proper exercise technique and purpose for exercises. Skilled judgment was used in selection of appropriate interventions. Provided written instruction for home exercise program to facilitate proper performance and compliance. Correct performance of therapeutic exercises was facilitated with verbal, visual, and tactile cuing. Billing Therapeutic Exercise Treatment Minutes: 40 Skilled Treatment Time Minutes (timed and untimed codes): 40 Total Session Time (minutes): 40 Session Start Time : 817 Session Stop Time : 857 Calvin White PT Program_ID:[id number] Access Code: [email or web address] URL: [email or web address] Date: 02-28-2024 Prepared By: Calvin White Program Notes Exercises - Seated Shoulder External Rotation AAROM with Dowel - 1 x daily - 7 x weekly - 3 sets - 10 reps - Supine Shoulder Flexion with Dowel - 1 x daily - 7 x weekly - 3 sets - 10 reps - Isometric Shoulder Flexion at Wall - 1 x daily - 7 x weekly - 3 sets - 10 reps - Isometric Shoulder External Rotation at Wall - 1 x daily - 7 x weekly - 3 sets - 10 reps - Standing Isometric Shoulder Internal Rotation at Doorway - 1 x daily - 7 x weekly - 3 sets - 10 reps - Seated Shoulder Flexion AAROM with Catalina Behind - 2-3 x daily - 7 x weekly - 2 sets - 10 reps - Seated Single Arm Shoulder External Rotation - 1 x daily - 7 x weekly - 3 sets - 10 reps - Seated Single Arm Shoulder Internal Rotation - 1 x daily - 7 x weekly - 3 sets - 10 reps - Standing Wall Ball Circles with Mini Liberian Ball - 1 x daily - 7 x weekly - 3 sets - 10 reps - Shoulder Flexion Wall Slide with Towel - 2 x daily - 7 x weekly - 1 sets - 10 reps documented in this encounter [facility] 02-24-2024 History of Present illness Narrative Program_ID:[id number] Access Code: [email or web address] URL: [email or web address]/ Date: 02-24-2024 Prepared By: Calvin White Program Notes Exercises - Wrist AROM Flexion Extension - 1 x daily - 7 x weekly - 3 sets - 10 reps - Putty Squeezes - 1 x daily - 7 x weekly - 3 sets - 10 reps - Seated Shoulder Flexion Table Top Stretch - 1 x daily - 7 x weekly - 3 sets - 10 reps - Seated Shoulder External Rotation AAROM with Dowel - 1 x daily - 7 x weekly - 3 sets - 10 reps - Seated Scapular Retraction - 1 x daily - 7 x weekly - 3 sets - 10 reps - Seated Shoulder Rolls - 1 x daily - 7 x weekly - 3 sets - 10 reps - Supine Shoulder Flexion with Dowel - 1 x daily - 7 x weekly - 3 sets - 10 reps - Shoulder External Rotation and Scapular Retraction - 1 x daily - 7 x weekly - 3 sets - 10 reps - Isometric Shoulder Flexion at Wall - 1 x daily - 7 x weekly - 3 sets - 10 reps - Isometric Shoulder External Rotation at Wall - 1 x daily - 7 x weekly - 3 sets - 10 reps - Standing Isometric Shoulder Internal Rotation at Doorway - 1 x daily - 7 x weekly - 3 sets - 10 reps - Seated Shoulder Flexion AAROM with Catalina Behind - 2-3 x daily - 7 x weekly - 2 sets - 10 reps Episode Visit Count: 7 Therapist That Will Accept/Oversee The Plan Of Care: Calvin White Start of Care Date: 01/15/24 Onset Date: 01/01/24 Plan of Care Certification Date: 01/15/24 Next Certification Due Date: 04/15/24 Patient Identified by Name and Date of : Yes REHABILITATION AND SPORTS THERAPY PHYSICAL THERAPY TREATMENT NOTE ASSESSMENT: Carina Ham tolerated the session with fatigue and expected muscle soreness. She demonstrated improvements in ability to perform pulleys for flexion. The patient will continue to benefit from ongoing skilled physical therapy to progress toward set goals. PLAN FOR NEXT VISIT: Continue to progress per surgical protocol. AAROM > AROM around week 8, pt will be 8 weeks 02/26/24 SUBJECTIVE: Pt reports that her shoulder is fine today. Pain: Pain Pain Level: ("very little, "I was typing a bunch this morning") Pain Location: Shoulder - Right OBJECTIVE MEASURES WITH LEVEL OF FUNCTION: UE PROM R Shoulder Flex: 135 Degrees TREATMENT: Therapeutic Exercise: 1: Wand flexion AAROM in supine 2x10 2: Wand ER AAROM with palm up 2x10 3: *Pulleys for flexion with arm extended 2x10 (pulleys issued) 4: Wall slides AAROm flexion x 5 with assist from LAURAE 5: Shoulder isometrics at wall flexion, IR, and ER 2-3 second holds x 20 each 6: PROM shoulder flexion, ER, abduction 3x20 each Skilled Intervention: Patient was educated in proper exercise technique and purpose for exercises. Reviewed and educated patient on additions/changes for home exercise program as above (*). Skilled judgment was used in selection of appropriate interventions. Provided written instruction for home exercise program to facilitate proper performance and compliance. Correct performance of therapeutic exercises was facilitated with verbal and visual cuing. Billing Therapeutic Exercise Treatment Minutes: 47 Skilled Treatment Time Minutes (timed and untimed codes): 47 Total Session Time (minutes): 47 Session Start Time : 1357 Session Stop Time : 1444 RUBINA Fernandez, PT, DPT. documented in this encounter [facility] 02-21-2024 History of Present illness Narrative Episode Visit Count: 6 Therapist That Will Accept/Oversee The Plan Of Care: Calvin White Start of Care Date: 01/15/24 Onset Date: 01/01/24 Plan of Care Certification Date: 01/15/24 Next Certification Due Date: 04/15/24 REHABILITATION AND SPORTS THERAPY PHYSICAL THERAPY TREATMENT NOTE ASSESSMENT: Carina Ham tolerated the session with no issues. She demonstrated improvements in shoulder PROM and tolerated isometrics well today. The patient will continue to benefit from ongoing skilled physical therapy to progress toward set goals. PLAN FOR NEXT VISIT: May attempt pulleys again SUBJECTIVE: Patient doing well today. She is almost weaned out of the slight at home, just wears it out and about. Pain: Pain Pain Level: 0 Pain Location: Shoulder - Right OBJECTIVE MEASURES WITH LEVEL OF FUNCTION: UE PROM R Shoulder Flex: 140 Degrees R Shoulder External Rotation: 55 Degrees TREATMENT: Therapeutic Exercise: 1: Wand flexion 2x10 2: Wand ER 2x10 3: PROM shoulder flexion, ER, abduction 3x20 each 4: Shoulder isometrics into flexion, IR, ER 3x10, 2-3 sec holds 5: Scap retractions, rolls, shrugs x10 each Skilled Intervention: Patient was educated in proper exercise technique and purpose for exercises. Skilled judgment was used in selection of appropriate interventions. Provided written instruction for home exercise program to facilitate proper performance and compliance. Correct performance of therapeutic exercises was facilitated with verbal, visual, and tactile cuing. Billing Therapeutic Exercise Treatment Minutes: 40 Skilled Treatment Time Minutes (timed and untimed codes): 40 Total Session Time (minutes): 40 Session Start Time : 1055 Session Stop Time : 1135 Calvin White PT Program_ID:[id number] Access Code: [email or web address] URL: [email or web address] Date: 02-20-2024 Prepared By: Calvin White Program Notes Exercises - Wrist AROM Flexion Extension - 1 x daily - 7 x weekly - 3 sets - 10 reps - Putty Squeezes - 1 x daily - 7 x weekly - 3 sets - 10 reps - Seated Shoulder Flexion Table Top Stretch - 1 x daily - 7 x weekly - 3 sets - 10 reps - Seated Shoulder External Rotation AAROM with Dowel - 1 x daily - 7 x weekly - 3 sets - 10 reps - Seated Scapular Retraction - 1 x daily - 7 x weekly - 3 sets - 10 reps - Seated Shoulder Rolls - 1 x daily - 7 x weekly - 3 sets - 10 reps - Supine Shoulder Flexion with Dowel - 1 x daily - 7 x weekly - 3 sets - 10 reps - Shoulder External Rotation and Scapular Retraction - 1 x daily - 7 x weekly - 3 sets - 10 reps - Isometric Shoulder Flexion at Wall - 1 x daily - 7 x weekly - 3 sets - 10 reps - Isometric Shoulder External Rotation at Wall - 1 x daily - 7 x weekly - 3 sets - 10 reps - Standing Isometric Shoulder Internal Rotation at Doorway - 1 x daily - 7 x weekly - 3 sets - 10 reps documented in this encounter [facility] 02-12-2024 History of Present illness Narrative Images from the original note were not included. Episode Visit Count: 5 Therapist That Will Accept/Oversee The Plan Of Care: Calvin White Start of Care Date: 01/15/24 Onset Date: 01/01/24 Plan of Care Certification Date: 01/15/24 Next Certification Due Date: 04/15/24 REHABILITATION AND SPORTS THERAPY PHYSICAL THERAPY PROGRESS REPORT PLAN OF CARE UPDATE: Assessment: Carina Ham demonstrates minimal improvement in sleeping and grooming. She has progressed toward goals. Patient continues to present with impairments in ADL's, overall function, range of motion, strength, and symptom management that interfere with heavy exertion, lifting, physical activities, recreational activities, sleeping, reaching behind back, reaching overhead, driving, use hand with arm at shoulder level, cleaning, cooking, dressing, grooming . Current prognosis is Good due to: current objective clinical presentation, good overall health status, acuteness of condition, positive past response to therapy, within-session changes, good support system/ coping skills . She will benefit from continued skilled therapy services to meet the updated goals for this plan of care as noted below. Goals updated on 02/12/2024. Goals for Episode of Care: created on 01/15/2024 through 02/14/24 [place] in home exercise program. Met, on-going Patient will decrease pain rating by 2 points to meet minimal clinical important difference for numeric pain rating scale. Partially met Patient will increase passive ROM of R shoulder to WNL to allow pt to to improve performance of ADLs. Progressing Patient Goals: Return to normal function in ADLs, as well as return to swimming backstrokes. Planned Interventions, Frequency, and Duration: 2x/week, 8 weeks Total Number of Visits Planned: 16 Patient to be seen for Therapeutic exercise (77338), Neuromuscular re-education (72995), Self-snf management ([id number]), Manual therapy (94704), Therapeutic activities (55714), Patient/Family/Caregiver Education, Body Mechanics Training PLAN FOR NEXT VISIT: Continue to progress per surgical protocol. AAROM > AROM around week 8 SUBJECTIVE: No pain today. Patient sleeping well but still in a recliner. No issues with her exercises, doing well and staying consistent with them. Functional Limitations: heavy exertion, lifting, physical activities, recreational activities, sleeping, reaching behind back, reaching overhead, driving, use hand with arm at shoulder level, cleaning, cooking, dressing, grooming Pain: Pain Pain Level: 0 Pain Location: Shoulder - Right PROMIS Scales 02/07/2024 01/14/2024 01/08/2024 Higher is Better Phys Func - Score 36 (moderate dysfunction) 25 (severe dysfunction) Phys Func - Percentile 8 1 Self-Eff Symptom - Score 53 (Average) Self-Eff Symptom - Percentile 62 T-scores: mean of general population = 50. 5 points is clinically meaningfully difference Percentiles provide an indication of how the patient's score ranks in relation to the general population. Higher percentile rankings indicate better function/quality of life. 50th percentile is the average of the general population and indicates half of respondents had a worse score. OBJECTIVE MEASURES WITH LEVEL OF FUNCTION: UE PROM R Shoulder Flex: 130 Degrees R Shoulder External Rotation: 40 Degrees UE and Cervical Strength R UE Strength: Unable to assess today due to paina nd acuity of surgery TREATMENT: Therapeutic Exercise: 1: *Wand flexion 2: *AROM IR/ER seated with elbow at side propped on pillow 3: PROM shoulder flexion, ER, abduction 4: Objective emasures obtained 5: Attempted gentle isometrics, ceased due to pain 6: Attempted shoulder pulleys into flexion but ceased due to pain Skilled Intervention: Patient was educated in proper exercise technique and purpose for exercises. Skilled judgment was used in selection of appropriate interventions. Provided written instruction for home exercise program to facilitate proper performance and compliance. Correct performance of therapeutic exercises was facilitated with verbal, visual, and tactile cuing. Self-Detention Management: 1: Patient educated in weaning out of sling and answered all questions related to plan of care and rehab implications Skilled Intervention: Skilled judgment in the selection of proper modification for activity of daily living/home management based on clinical presentation, deficits, and needs. Reviewed patient specific diagnosis in relation to activities of daily living/home management. Activity progression based on professional judgement. Billing Manual TherapyTreatment Minutes: 34 Self-Care/Home Management Treatment Minutes: 8 Skilled Treatment Time Minutes (timed and untimed codes): 42 Total Session Time (minutes): 42 Session Start Time : 0818 Session Stop Time : 0900 Calvin White PT Program_ID:[id number] Access Code: [email or web address] URL: [email or web address] Date: 02-12-2024 Prepared By: Calvin White Program Notes Exercises - Wrist AROM Flexion Extension - 1 x daily - 7 x weekly - 3 sets - 10 reps - Putty Squeezes - 1 x daily - 7 x weekly - 3 sets - 10 reps - Seated Shoulder Flexion Table Top Stretch - 1 x daily - 7 x weekly - 3 sets - 10 reps - Seated Shoulder External Rotation AAROM with Dowel - 1 x daily - 7 x weekly - 3 sets - 10 reps - Seated Scapular Retraction - 1 x daily - 7 x weekly - 3 sets - 10 reps - Seated Shoulder Rolls - 1 x daily - 7 x weekly - 3 sets - 10 reps - Supine Shoulder Flexion with Dowel - 1 x daily - 7 x weekly - 3 sets - 10 reps - Shoulder External Rotation and Scapular Retraction - 1 x daily - 7 x weekly - 3 sets - 10 reps documented in this encounter [facility] 02-07-2024 History of Present illness Narrative Episode Visit Count: 4 Therapist That Will Accept/Oversee The Plan Of Care: Calvin White Start of Care Date: 01/15/24 Onset Date: 01/01/24 Plan of Care Certification Date: 01/15/24 Next Certification Due Date: 04/15/24 REHABILITATION AND SPORTS THERAPY PHYSICAL THERAPY TREATMENT NOTE ASSESSMENT: Carina Ham tolerated the session with increased symptoms. She demonstrated difficulty with PROM and symptom modulation by self. The patient will continue to benefit from ongoing skilled physical therapy to progress toward set goals and continue post-operative protocol. PLAN FOR NEXT VISIT: Assess edema, assess brace usage in relation to shoulder symptoms. Possibly begin more therapeutic exercise if protocol allows. SUBJECTIVE: Pt reports to clinic today w/ reports of clothing fitting somewhat tight over RUE. Pt reports typing w/o brace on at home on keyboard. Pt is excited for brace D/C next week. Pt also comes into clinic w/ questions on what next phase of care is. Pain: Pain Pain Level: 0 Pain Location: Shoulder - Right OBJECTIVE MEASURES WITH LEVEL OF FUNCTION: UE PROM R Shoulder Flex: 70 Degrees R Shoulder ABduction: 20 Degrees R Shoulder External Rotation: 25 Degrees Mild edema present in RUE shoulder area. TREATMENT: Manual Therapy: 1: PROM shoulder ER, flexion, and abduction to tolerated end range based on surgical protocols. 2: STM to R upper trap, deltoid, levator with push to tolerance Skilled Intervention: Manual skills to improve joint mobility, ROM, and decrease pain. Utilized anatomy knowledge of the therapist, and assessment of patient's response to intervention. Self-Detention Management: 1: Pt was edu in what they can do at home in relation to pain in RUE. Pt was edu in elevation to comfort and to use a stress ball for edema management in RUE. Pt was also edu in care process that edema is normal when using the affected extremity more, as well that PT will slate picker to x2 a week once the 6 week post-op ellis is met. Skilled Intervention: Skilled judgment in the selection of proper modification for activity of daily living/home management based on clinical presentation, deficits, and needs. Physical assistance was provided during education for modifications and patient safety. Provided written instruction for activities of daily living techniques to facilitate proper performance and compliance. Reviewed patient specific diagnosis in relation to activities of daily living/home management. Activity progression based on professional judgement. Pt was edu in elevation in regards to pain compliance, to limit sharp pain sensation; as well not to go over shoulder height in elevation. Billing Manual TherapyTreatment Minutes: 24 Self-Care/Home Management Treatment Minutes: 15 Skilled Treatment Time Minutes (timed and untimed codes): 39 Total Session Time (minutes): 39 Session Start Time : 955 Session Stop Time : 1035 QUAN Gonzalez Supervising therapist was present and guided the care of the patient for the entire session on this date. All documentation was reviewed and agreed upon. Calvin White PT documented in this encounter [facility] 02-05-2024 Note HNO ID: [id number] Author: GEORGIA BEDOYA, DO Service: ? Author Type: Physician Type: Progress Notes Filed: 02/07/2024 14:55 Note Text: Patient presents with: Right Shoulder - Follow Up, Post Op Cairna Ham is a 68 year old female who presents for follow-up right shoulder arthroscopy with rotator cuff repair, biceps tenodesis, subacromial decompression on 01/01/2024. The patient has been attending physical therapy once weekly and is working on passive range of motion of her right shoulder. She continues to sleep upright in an arm chair and is having difficulty laying flat. She has discontinued narcotic pain medication and occasionally takes ibuprofen and Tylenol as needed for discomfort. She denies any distal numbness or tingling. She denies any incisional problems including drainage or discharge from the incisions. Reviewed nursing note and current pain scale. PAST MEDICAL HISTORY Diagnosis Date Allergic rhinitis, cause unspecified Allergic rhinitis Benign neoplasm of colon Diverticulosis of colon (without mention of hemorrhage) Exercise-induced asthma Hypothyroidism MTHFR mutation Traumatic complete tear of right rotator cuff PAST SURGICAL HISTORY Procedure Laterality Date APPENDECTOMY COLONOSCOPY FLX DX W/COLLJ SPEC WHEN PFRMD 06/12/2007 Colonoscopy DILATION AND CURETTAGE DXAND/THER NONOBSTETRIC Dilation AND curettage LAPS SURG CHOLECYSTECTOMY W/CHOLANGIOGRAPHY 03/26/[address] Ying OOPHORECTOMY PARTIAL/TOTAL UNI/BI with the right remaining, but no tube THYROIDECTOMY SUBTOTAL/PARTIAL 12/2016 TOTAL ABDOMINAL HYSTERECT W/WO RMVL TUBE OVARY Hysterectomy, ALBERTO FAMILY HISTORY Problem Relation Age of Onset Thyroid Mother graves disease Hypertension Father orthostatic and tia's other (Shy Drager) Father Breast Cancer Maternal Grandmother Breast Cancer Paternal Grandmother unsure Social History Tobacco Use Smoking status: Never Smokeless tobacco: Never Vaping Use Vaping Use: Never used Substance Use Topics Alcohol use: Yes Comment: wine with dinner at times Drug use: No Medications: Current Outpatient Medications Medication Sig ibuprofen (MOTRIN) 800 mg tablet Take 1 tablet by mouth every 8 hours as needed for pain. acetaminophen (TYLENOL EXTRA STRENGTH) 500 mg tablet Take 2 tablets by mouth every 6 hours as needed for pain. L-METHYLFOLATE 15 mg tab Take by mouth once daily. calcium carbonate (CALCIUM 500) 500 mg calcium (1,250 mg) tablet Take 2 tablets by mouth once daily. levothyroxine 88 mcg cap Take 88 mcg by mouth daily before breakfast. montelukast (SINGULAIR) 10 mg tablet Take 10 mg by mouth daily at bedtime. loratadine (CLARITIN) 10 mg ORAL Tab Take one(1) tablet daily. As needed. THERAPEUTIC MULTIVITAMIN TAB Take one(1) tablet daily. mometasone furoate(NASONEX 50 MCG/ACTUATION SPRAY) 2 sprays each nostril daily ALBUTEROL 90 MCG/ACTUATION AEROSOL INHALER 2 puffs every four (4) hours as needed No current facility-administered medications for this visit. Allergies: ALLERGIES Allergen Reactions Molds [Other] Valdecoxib GI Upset, Diarrhea Physical Examination: Temp 98.3 Ht 5' 6" (1.68m) Wt 190 lb (86.2kg) BMI 30.68 kg/(m2). Right Shoulder Inspection: Incisions healing well. No erythema. No palpable fluctuance. Passive ROM Right Shoulder: Forward Flexion: 100 degrees Abduction: 80 degrees External Rotation at zero degrees of abduction: 20 degrees Active range of motion Right elbow Flexion: 140 degrees Extension: 0 degrees AIN, PIN, ulnar, median, radial nerves intact Axillary and musculocutaneous nerves intact Radial pulse +2 / 4, palpable Distal extremity warm and well-perfused, capillary refill brisk Assessment and Plan: 1. Traumatic complete tear of right rotator cuff, subsequent encounter - ICD9: V58.89, 840.4, ICD10: S46.011D (primary diagnosis) 2. S/P right rotator cuff repair - ICD9: V45.89, ICD10: Z98.890 The physical exam findings were discussed with the patient. I am able to forward elevate the patient to about 100 degrees today. She has about 80 degrees of abduction, passive. No incisional problems are noted on physical exam today. We discussed continuing to progress with my rotator cuff rehab protocol through physical therapy. The patient expressed increasing her physical therapy to twice weekly which I agree with if convenient for her schedule. I do continue to be nonweightbearing of the right upper extremity. She may discontinue her sling at the 6-week ellis. I will see the patient back in about 6 weeks for repeat evaluation. I encouraged her to contact my office with any questions, concerns, or to be seen prior to her next appointment. Georgia Bedoya DO Orthopedic Surgery, Sports Medicine [facility] 02-05-2024 History of Present illness Narrative Patient presents with: Right Shoulder - Follow Up, Post Op Carina Ham is a 68 year old female who presents for follow-up right shoulder arthroscopy with rotator cuff repair, biceps tenodesis, subacromial decompression on 01/01/2024. The patient has been attending physical therapy once weekly and is working on passive range of motion of her right shoulder. She continues to sleep upright in an arm chair and is having difficulty laying flat. She has discontinued narcotic pain medication and occasionally takes ibuprofen and Tylenol as needed for discomfort. She denies any distal numbness or tingling. She denies any incisional problems including drainage or discharge from the incisions. Reviewed nursing note and current pain scale. PAST MEDICAL HISTORY Diagnosis Date Allergic rhinitis, cause unspecified Allergic rhinitis Benign neoplasm of colon Diverticulosis of colon (without mention of hemorrhage) Exercise-induced asthma Hypothyroidism MTHFR mutation Traumatic complete tear of right rotator cuff PAST SURGICAL HISTORY Procedure Laterality Date APPENDECTOMY COLONOSCOPY FLX DX W/COLLJ SPEC WHEN PFRMD 06/12/2007 Colonoscopy DILATION & CURETTAGE DX&/THER NONOBSTETRIC Dilation & curettage LAPS SURG CHOLECYSTECTOMY W/CHOLANGIOGRAPHY 03/26/[address] Ying OOPHORECTOMY PARTIAL/TOTAL UNI/BI with the right remaining, but no tube THYROIDECTOMY SUBTOTAL/PARTIAL 12/2016 TOTAL ABDOMINAL HYSTERECT W/WO RMVL TUBE OVARY Hysterectomy, ALBERTO FAMILY HISTORY Problem Relation Age of Onset Thyroid Mother graves disease Hypertension Father orthostatic and tia's other (Shy Drager) Father Breast Cancer Maternal Grandmother Breast Cancer Paternal Grandmother unsure Social History Tobacco Use Smoking status: Never Smokeless tobacco: Never Vaping Use Vaping Use: Never used Substance Use Topics Alcohol use: Yes Comment: wine with dinner at times Drug use: No Medications: Current Outpatient Medications Medication Sig ibuprofen (MOTRIN) 800 mg tablet Take 1 tablet by mouth every 8 hours as needed for pain. acetaminophen (TYLENOL EXTRA STRENGTH) 500 mg tablet Take 2 tablets by mouth every 6 hours as needed for pain. L-METHYLFOLATE 15 mg tab Take by mouth once daily. calcium carbonate (CALCIUM 500) 500 mg calcium (1,250 mg) tablet Take 2 tablets by mouth once daily. levothyroxine 88 mcg cap Take 88 mcg by mouth daily before breakfast. montelukast (SINGULAIR) 10 mg tablet Take 10 mg by mouth daily at bedtime. loratadine (CLARITIN) 10 mg ORAL Tab Take one(1) tablet daily. As needed. THERAPEUTIC MULTIVITAMIN TAB Take one(1) tablet daily. mometasone furoate(NASONEX 50 MCG/ACTUATION SPRAY) 2 sprays each nostril daily ALBUTEROL 90 MCG/ACTUATION AEROSOL INHALER 2 puffs every four (4) hours as needed No current facility-administered medications for this visit. Allergies: ALLERGIES Allergen Reactions Molds [Other] Valdecoxib GI Upset, Diarrhea Physical Examination: Temp 98.3 Ht 5' 6" (1.68m) Wt 190 lb (86.2kg) BMI 30.68 kg/(m^2). Right Shoulder Inspection: Incisions healing well. No erythema. No palpable fluctuance. Passive ROM Right Shoulder: Forward Flexion: 100 degrees Abduction: 80 degrees External Rotation at zero degrees of abduction: 20 degrees Active range of motion Right elbow Flexion: 140 degrees Extension: 0 degrees AIN, PIN, ulnar, median, radial nerves intact Axillary and musculocutaneous nerves intact Radial pulse +2 / 4, palpable Distal extremity warm and well-perfused, capillary refill brisk Assessment and Plan: 1. Traumatic complete tear of right rotator cuff, subsequent encounter - ICD9: V58.89, 840.4, ICD10: S46.011D (primary diagnosis) 2. S/P right rotator cuff repair - ICD9: V45.89, ICD10: Z98.890 The physical exam findings were discussed with the patient. I am able to forward elevate the patient to about 100 degrees today. She has about 80 degrees of abduction, passive. No incisional problems are noted on physical exam today. We discussed continuing to progress with my rotator cuff rehab protocol through physical therapy. The patient expressed increasing her physical therapy to twice weekly which I agree with if convenient for her schedule. I do continue to be nonweightbearing of the right upper extremity. She may discontinue her sling at the 6-week ellis. I will see the patient back in about 6 weeks for repeat evaluation. I encouraged her to contact my office with any questions, concerns, or to be seen prior to her next appointment. Georgia Bedoya DO Orthopedic Surgery, Sports Medicine REVIEW OF SYSTEMS: GENERAL: Well developed, well nourished. No acute distress PAIN: Negative for pain, history of chronic pain or current treatment for chronic pain conditions CARDIOVASCULAR: Negative for chest pain, leg swelling and palpations. MSK: Negative for joint swelling SKIN: Negative for lesions, rash, itching, metal sensitivity NEURO: Negative for seizure, trauma, numbness/tingling of extremities. ENDOCRINE: Negative for diabetic associated symptoms HEMATOLOGY: Negative for excessive bleeding, clots, bleeding disorders. documented in this encounter [facility] 02-05-2024 Note HNO ID: [id number] Author: RYAN PINTO Tech Service: ? Author Type: Building Maintenance Repairer Type: Progress Notes Filed: 02/07/2024 14:55 Note Text: REVIEW OF SYSTEMS: GENERAL: Well developed, well nourished. No acute distress PAIN: Negative for pain, history of chronic pain or current treatment for chronic pain conditions CARDIOVASCULAR: Negative for chest pain, leg swelling and palpations. MSK: Negative for joint swelling SKIN: Negative for lesions, rash, itching, metal sensitivity NEURO: Negative for seizure, trauma, numbness/tingling of extremities. ENDOCRINE: Negative for diabetic associated symptoms HEMATOLOGY: Negative for excessive bleeding, clots, bleeding disorders. [facility] 02-04-2024 History of Present illness Narrative Subjective Patient ID: Carina Ham is a 68 y.o. female who presents for Follow-up (EP. Follow up. No concerns.). HPI Here for fu thyroid Feels well meds good No skin or hair issues or constipation her energy level is good. She has no weight gain. She recently had right shoulder surgery with repair of her rotator cuff she is still in an arm splint she goes to physical therapy and she is doing minimal movement of her arms with some therapy but not using her own strength on the shoulder as she is waiting for stitches to heal. She has been running down due to a recent cold Has cold sxs runny nose and congested w cough and light green dc seems to have increased in amount but it is small amounts Is not a lot but comes up when she coughs She has ongoing asthma issues. She states that she has been out of shape since she hurt her shoulder and has not been exercising. With that she has noticed some increase of her wheezing. She would like a refill on her albuterol. She is also going to be doing some traveling and she wants to make sure she has an extra inhaler to take with her and she did lose 1 when she went to surgery because they took it to use for her and never returned. Patient does not notice any worsening of her air exchange. Her thinks that she is doing okay. They will keep an eye on her symptoms. She feels the albuterol helps quite well she is happy with its effect Review of Systems Review of systems was performed and is otherwise negative except as noted in HPI. Objective BP 118/76 Pulse 68 Temp 36.7 C (98.1 F) (Oral) Ht 1.676 m (5' 6") Wt 87.1 kg (192 lb) SpO2 97% BMI 30.99 kg/m Physical Exam HEENT is normal Lungs clear bilaterally Heart is regular rate rhythm no murmurs Abdomen benign Lower extremities no edema She has an immobilizer on her right shoulder Assessment/Plan Diagnoses and all orders for this visit: Asthma, unspecified asthma severity, unspecified whether complicated, unspecified whether persistent ([facility]) - montelukast (Singulair) 10 mg tablet; Take 1 tablet (10 mg) by mouth once daily at bedtime. - albuterol 90 mcg/actuation inhaler; Inhale 2 puffs every 4 hours. - albuterol 90 mcg/actuation inhaler; Inhale 2 puffs every 6 hours if needed for wheezing. Hypothyroidism, unspecified type - levothyroxine (Synthroid, Levoxyl) 88 mcg tablet; Take 1 tablet (88 mcg) by mouth once daily in the morning. Take before meals. Call with issues Refill thyroid medicine Blood work ordered for 6 months Refilled her asthma medications Patient has not had montelukast in about a year so organ to resume that the let me know if it is helpful or not La Melendez MD documented in this encounter [facility] Work Phone: 01-29-2024 History of Present illness Narrative Episode Visit Count: 3 Therapist That Will Accept/Oversee The Plan Of Care: Calvin White Start of Care Date: 01/15/24 Onset Date: 01/01/24 Plan of Care Certification Date: 01/15/24 Next Certification Due Date: 04/15/24 REHABILITATION AND SPORTS THERAPY PHYSICAL THERAPY TREATMENT NOTE ASSESSMENT: Carina Ham tolerated the session with decreased symptoms and no issues. She demonstrated improvements in Symptom modulation. The patient will continue to benefit from ongoing skilled physical therapy to progress toward set goals. PLAN FOR NEXT VISIT: Assess symptoms and brace usage. Continue as prescribed in protocol. SUBJECTIVE: Pt reports to clinic today w/ reports of better sleep. Still wishes she could sleep in her bed and type. Pt reports no issues w/ HEP. In good mood for skilled PT. Pain: Pain Pain Level: 2 Pain Location: Shoulder - Right Description: Aching, Sore, Throbbing Frequency: Continuous OBJECTIVE MEASURES WITH LEVEL OF FUNCTION: Pt was able to reach end-range provided in protocol PROM. TREATMENT: Manual Therapy: 1: PROM shoulder ER, flexion, and abduction to tolerated end range based on surgical protocols. 2: STM to R upper trap, deltoid, levator with push to tolerance Skilled Intervention: Manual skills to improve joint mobility, ROM, and decrease pain. Utilized anatomy knowledge of the therapist, and assessment of patient's response to intervention. Billing Manual TherapyTreatment Minutes: 43 Skilled Treatment Time Minutes (timed and untimed codes): 43 Total Session Time (minutes): 43 Session Start Time : 900 Session Stop Time : 943 QUAN Gonzalez Supervising therapist was present and guided the care of the patient for the entire session on this date. All documentation was reviewed and agreed upon. Calvin White PT documented in this encounter [facility] 01-24-2024 History of Present illness Narrative Episode Visit Count: 2 Therapist That Will Accept/Oversee The Plan Of Care: Calvin White Start of Care Date: 02/15/22 Onset Date: 01/25/22 (December with back pain from moving at work) Plan of Care Certification Date: 01/15/24 Next Certification Due Date: 04/15/24 REHABILITATION AND SPORTS THERAPY PHYSICAL THERAPY TREATMENT NOTE ASSESSMENT: Carina Ham tolerated the session with decreased symptoms and no issues. She demonstrated improvements in PROM shoulder motion. The patient will continue to benefit from ongoing skilled physical therapy to progress toward set goals. PLAN FOR NEXT VISIT: SUBJECTIVE: Patient doing well today, no issues. Wishes she could sleep in her bed Pain: Pain Pain Level: 2 Pain Location: Shoulder - Right Description: Aching, Sore, Throbbing Frequency: Continuous OBJECTIVE MEASURES WITH LEVEL OF FUNCTION: UE PROM R Shoulder Flex: 90 Degrees R Shoulder External Rotation: 20 Degrees TREATMENT: Therapeutic Exercise: 1: *Table top slides into flexion 2x10, tolerated range 2: *Codmans pendulums 3x20 3: *Wand ER 3x10 (gentle range, cued for no pain) 4: *Scap retractions 3x10 5: *Scapular rolls 3x10 forward and back Skilled Intervention: Patient was educated in proper exercise technique and purpose for exercises. Skilled judgment was used in selection of appropriate interventions. Provided written instruction for home exercise program to facilitate proper performance and compliance. Correct performance of therapeutic exercises was facilitated with verbal, visual, and tactile cuing. Manual Therapy: 1: PROM shoulder ER, flexion, cirecumduction to tolerated end range 2: STM to R upper trap, deltoid, levator with push to tolerance Skilled Intervention: Manual skills to improve joint mobility, ROM, and decrease pain. Utilized anatomy knowledge of the therapist, and assessment of patient's response to intervention. Billing Therapeutic Exercise Treatment Minutes: 20 Manual TherapyTreatment Minutes: 22 Skilled Treatment Time Minutes (timed and untimed codes): 42 Total Session Time (minutes): 42 Session Start Time : 813 Session Stop Time : 855 Calvin White PT Program_ID:[id number] Access Code: [email or web address] URL: [email or web address] Date: 01-22-2024 Prepared By: Calvin White Program Notes Exercises - Wrist AROM Flexion Extension - 1 x daily - 7 x weekly - 3 sets - 10 reps - Putty Squeezes - 1 x daily - 7 x weekly - 3 sets - 10 reps - Seated Shoulder Flexion Table Top Stretch - 1 x daily - 7 x weekly - 3 sets - 10 reps - Seated Shoulder External Rotation AAROM with Dowel - 1 x daily - 7 x weekly - 3 sets - 10 reps - Seated Scapular Retraction - 1 x daily - 7 x weekly - 3 sets - 10 reps - Seated Shoulder Rolls - 1 x daily - 7 x weekly - 3 sets - 10 reps documented in this encounter [facility] 01-15-2024 History of Present illness Narrative Images from the original note were not included. Episode Visit Count: 1 Therapist That Will Accept/Oversee The Plan Of Care: Calvin White Start of Care Date: 02/15/22 Onset Date: 01/25/22 (December with back pain from moving at work) Plan of Care Certification Date: 01/15/24 Next Certification Due Date: 04/15/24 Patient Identified by Name and Date of : Yes REHABILITATION AND SPORTS THERAPY PHYSICAL THERAPY EVALUATION PLAN OF CARE: Assessment: Carina Ham presents with chief complaint of R shoulder that interferes with lifting, sleeping, reaching overhead, reaching behind back, use hand with arm at shoulder level, cooking, dressing, grooming, cleaning, driving, feeding self, gripping, pinching . She presents with impairments in ADL's, flexibility, joint mobility, overall function, posture, range of motion, soft tissue healing, symptom management, and tissue tenderness. PROMIS (Patient-Reported Outcomes Measurement Information System) scores were reviewed and identified as a rehabilitation concern. Prognosis for therapy is Good due to: current objective clinical presentation, good support system/ coping skills . She will benefit from skilled therapy services to meet the goals established for this plan of care as noted below. Goals for Episode of Care: created on through 02/14/24 [place] in home exercise program. Patient will decrease pain rating by 2 points to meet minimal clinical important difference for numeric pain rating scale. Patient will increase passive ROM of FF, ER in 20* aBd, and aBd, to 145*, 60*, & 120* respectively, to allow pt to to improve performance of ADLs and maintain progress per protocol.. Patient Goals: Return to normal function in ADLs, as well as return to swimming backstrokes. Planned Interventions, Frequency, and Duration: Current Frequency: 1x/week Duration: 4 weeks Total Number of Visits Planned: 4 Planned Treatment Interventions: Therapeutic exercise (49276), Neuromuscular re-education (19655), Manual therapy (33414), Body Mechanics Training, Self-snf management (20399) PLAN FOR NEXT VISIT: Assess tolerance and adherence to HEP. Continue surgical protocol given. Patient demonstrates good understanding of plan of care and treatment. The above goals and plan of care were discussed and agreed upon by patient/family. SUBJECTIVE: Pt comes into clinic today with R shoulder pain post- RCR w/ biceps tenodesis. Pt notes that pain is noticable, but bearable. Pt has been sleeping in recliner w/ sling; uses arm rest to block arm, not the actual sling. Pt notes that she is ready to move her arm, but understands that there is a process. Has questions on ADL for typing, piano use, and self-care. Patient Goals: Return to normal function in ADLs, as well as return to swimming backstrokes. Functional Limitations: lifting, sleeping, reaching overhead, reaching behind back, use hand with arm at shoulder level, cooking, dressing, grooming, cleaning, driving, feeding self, gripping, pinching Pain: Pain Pain Level: 2 Pain Location: Shoulder - Right Description: Sharp, Throbbing Frequency: Continuous, Intermittent Post Treatment Pain Post Treatment Pain Level: 2 Post Treatment Pain Location: Shoulder - Right Post Treatment Pain Description: Sharp, Throbbing Post Treatment Symptoms: Unchanged; Pt stated they felt like they "worked out" PROMIS Scales 01/14/2024 01/08/2024 03/01/2022 Higher is Better Phys Func - Score 25 (severe dysfunction) 47 (within normal limits) Phys Func - Percentile 1 38 Self-Eff Symptom - Score 53 (Average) Self-Eff Symptom - Percentile 62 T-scores: mean of general population = 50. 5 points is clinically meaningfully difference Percentiles provide an indication of how the patient's score ranks in relation to the general population. Higher percentile rankings indicate better function/quality of life. 50th percentile is the average of the general population and indicates half of respondents had a worse score. OBJECTIVE MEASURES WITH LEVEL OF FUNCTION: UE PROM R Shoulder Flex: 50 Degrees R Shoulder ABduction: 25 Degrees R Shoulder External Rotation: 5 Degrees Education: Education Education Provided: Yes, see treatment interventions for education provided Education Provided To: Patient, Family Education Mode/Type: Explanation/Discussion Response to Education/Teach Back: States/Identifies TREATMENT: PT Treatment Interventions: Therapeutic Exercise, Self-Detention Management, Manual Therapy Evaluation Evaluation Therapeutic Exercise: 1: *Ball squeeze 3x10 2: *Wrist flex/ext AROM 3x10 Skilled Intervention: Patient was educated in proper exercise technique and purpose for exercises. Skilled judgment was used in selection of appropriate interventions. Provided written instruction for home exercise program to facilitate proper performance and compliance. Educated patient on rationale for performing exercises in regards to increase ease of ADL and ROM and function . Patient education as noted. Manual Therapy: 1: PROM R shldr FF, ER @ 20-deg aBd, and aBd. Skilled Intervention: Manual skills to improve joint mobility, ROM, and decrease pain. Utilized anatomy knowledge of the therapist, and assessment of patient's response to intervention. Self-Detention Management: 1: Pt edu in HEP, PoC in relation to surgeon protocols, completion of some ADLs with wrist, edu not to hold Skilled Intervention: Skilled judgment in the selection of proper modification for activity of daily living/home management based on clinical presentation, deficits, and needs. Educated the patient regarding recommendations and provided written instruction to facilitate compliance. Reviewed and educated patient on additions/changes for home program Correct performance of home program was facilitated with verbal and visual cueing. Billing * Evaluation Low Complexity: 1 Unit Therapeutic Exercise Treatment Minutes: 4 Manual TherapyTreatment Minutes: 15 Self-Care/Home Management Treatment Minutes: 9 Skilled Treatment Time Minutes (timed and untimed codes): 45 Total Session Time (minutes): 45 Session Start Time : 0900 Session Stop Time : 45 QUAN Gonzalez Supervising therapist was present and guided the care of the patient for the entire session on this date. All documentation was reviewed and agreed upon. Calvin White PT Program_ID:[id number] Access Code: [email or web address] URL: [email or web address] Date: 01-15-2024 Prepared By: Calvin White Program Notes Exercises - Wrist AROM Flexion Extension - 1 x daily - 7 x weekly - 3 sets - 10 reps - Putty Squeezes - 1 x daily - 7 x weekly - 3 sets - 10 reps documented in this encounter [facility] 01-09-2024 Note HNO ID: [id number] Author: KRISTA PIERCE LPN Service: ? Author Type: LICENSED NURSE Type: Progress Notes Filed: 01/10/2024 14:02 Note Text: Dr. Bedoya ordered the following DME which was properly fitted for the patient: DME: [employer] Ultra Sling Size: Charlotte Consent signed/DME dispensed : Yes Fitted and dispensed by: Krista Pierce LPN [facility] 01-09-2024 Note HNO ID: [id number] Author: GEORGIA BEDOYA DO Service: ? Author Type: Physician Type: Progress Notes Filed: 01/10/2024 14:02 Note Text: Patient presents with: Right Shoulder - Post Op Carina Ham is a 68 year old female who presents for follow-up right shoulder arthroscopy with rotator cuff repair, biceps tenodesis, and subacromial decompression. The patient is doing well at this time. She is taking oxycodone as needed and ibuprofen for pain control. She notes postoperative ecchymosis along her right upper extremity. She denies any fever or chills. She denies any drainage or discharge from the surgical sites. She has been compliant with nonweightbearing status of the right upper extremity. She has been wearing the sling for immobilization. Reviewed nursing note and current pain scale. PAST MEDICAL HISTORY Diagnosis Date Allergic rhinitis, cause unspecified Allergic rhinitis Benign neoplasm of colon Diverticulosis of colon (without mention of hemorrhage) Exercise-induced asthma Hypothyroidism MTHFR mutation Traumatic complete tear of right rotator cuff PAST SURGICAL HISTORY Procedure Laterality Date APPENDECTOMY COLONOSCOPY FLX DX W/COLLJ SPEC WHEN PFRMD 06/12/2007 Colonoscopy DILATION AND CURETTAGE DXAND/THER NONOBSTETRIC Dilation AND curettage LAPS SURG CHOLECYSTECTOMY W/CHOLANGIOGRAPHY 03/26/[address] Ying OOPHORECTOMY PARTIAL/TOTAL UNI/BI with the right remaining, but no tube THYROIDECTOMY SUBTOTAL/PARTIAL 12/2016 TOTAL ABDOMINAL HYSTERECT W/WO RMVL TUBE OVARY Hysterectomy, ALBERTO FAMILY HISTORY Problem Relation Age of Onset Thyroid Mother graves disease Hypertension Father orthostatic and tia's other (Shy Drager) Father Breast Cancer Maternal Grandmother Breast Cancer Paternal Grandmother unsure Social History Tobacco Use Smoking status: Never Smokeless tobacco: Never Vaping Use Vaping Use: Never used Substance Use Topics Alcohol use: Yes Comment: wine with dinner at times Drug use: No Medications: Current Outpatient Medications Medication Sig ibuprofen (MOTRIN) 800 mg tablet Take 1 tablet by mouth every 8 hours as needed for pain. acetaminophen (TYLENOL EXTRA STRENGTH) 500 mg tablet Take 2 tablets by mouth every 6 hours as needed for pain. L-METHYLFOLATE 15 mg tab Take by mouth once daily. calcium carbonate (CALCIUM 500) 500 mg calcium (1,250 mg) tablet Take 2 tablets by mouth once daily. levothyroxine 88 mcg cap Take 88 mcg by mouth daily before breakfast. montelukast (SINGULAIR) 10 mg tablet Take 10 mg by mouth daily at bedtime. loratadine (CLARITIN) 10 mg ORAL Tab Take one(1) tablet daily. As needed. THERAPEUTIC MULTIVITAMIN TAB Take one(1) tablet daily. mometasone furoate(NASONEX 50 MCG/ACTUATION SPRAY) 2 sprays each nostril daily ALBUTEROL 90 MCG/ACTUATION AEROSOL INHALER 2 puffs every four (4) hours as needed No current facility-administered medications for this visit. Allergies: ALLERGIES Allergen Reactions Molds [Other] Valdecoxib GI Upset, Diarrhea Physical Examination: Resp 18 Ht 5' 6" (1.68m) Wt 192 lb (87.1kg) BMI 31.00 kg/(m2). Right Shoulder Inspection: Incisions healing well. Sutures removed today and Steri-Strips placed. Appropriate postoperative ecchymosis and swelling present. No drainage or discharge from the surgical sites. No erythema. No palpable fluctuance. Passive ROM Right Shoulder: Forward Flexion: 60 degrees Abduction: 45 degrees External Rotation at zero degrees of abduction: 20 degrees Passive range of motion Right elbow Flexion: 90 Extension: 0 Strength Right Shoulder: Not assessed secondary to recent surgery AIN, PIN, ulnar, median, radial nerves intact Axillary and musculocutaneous nerves intact Radial pulse +2 / 4, palpable Distal extremity warm and well-perfused, capillary refill brisk Assessment and Plan: 1. Traumatic complete tear of right rotator cuff, subsequent encounter - ICD9: V58.89, 840.4, ICD10: S46.011D The physical exam and intraoperative imaging findings were discussed with the patient today. The patient sutures were removed in office and Steri-Strips applied. Overall, the patient is doing very well at this time. She was provided with an updated prescription for physical therapy and will start physical therapy in 1 week. I encouraged her to contact my office with any questions or concerns moving forward. We reviewed my rehab protocol in detail. The patient is attending physical therapy through [facility] in [place] and I encouraged her to contact me if any issues arise or if the therapist is having difficulty obtaining my rehab protocol. I will see the patient back in 4 weeks for repeat evaluation. All questions were answered today. The patient was transitioned into an abduction sling today. Georgia Bedoya DO Orthopedic Surgery, Sports Medicine [facility] 01-01-2024 Note HNO ID: [id number] Author: DENY SUÁREZ APRN.CRNA Service: Anesthesiology Author Type: Nurse Emergency Veterinary Technician Type: Anesthesia Procedure Notes Filed: 01/01/2024 10:18 Note Text: ANESTHESIOLOGY PROCEDURE NOTE Airway General Information Procedure Start Time/Medication Administration: 01/01/2024 9:05 AM Patient location during procedure: OR Consent Obtained: Yes Patient identity confirmed: arm band Staffing NUCLEAR MEDICINE OFFICER: Deny Suárez APRN.NUCLEAR MEDICINE OFFICER Performed by: other anesthesia staff Indications and Patient Condition Indications for airway management: anesthesia Preoxygenated: yes anesthesia circuit Patient position: sniffing Method: asleep Manual In-Line Stabilization: No Difficult Mask: No Airway Accessory: oral airway Final Airway Details Final airway type: endotracheal airway Final Endotracheal Airway: ETT Cuffed: no Successful intubation technique: video laryngoscopy Devices used: intubating stylet and Glass Endotracheal tube insertion site: oral Blade: Jun Blade size: #3 ETT size (mm): 7.0 Measured from: teeth Measurement (cm): 21 Placement verified by: capnometry Cormack-Lehane Classification: grade I - full view of glottis Number of attempts at approach: 1 Failed airway: no Unrecognized esophageal intubation: no Airway not difficult Comments Airway management per Life Skills Educator student under the direction of LOUISA and Anesthesiologist. SIGNATURE: Deny Suárez APRN.CRNA PATIENT NAME: Carina Ham DATE: January 01, 2024 TIME: 10:16 AM CSN: [id number] [facility] 01-01-2024 Note HNO ID: [id number] Author: SALLY COUCH DO Service: Anesthesiology Author Type: Physician Type: Anesthesia Procedure Notes Filed: 01/01/2024 09:47 Note Text: ANESTHESIOLOGY PROCEDURE NOTE Peripheral Nerve Block General Information Procedure Start Time/Medication Administration: 01/01/2024 8:31 AM Procedure End time: 01/01/2024 8:44 AM Patient location during procedure: pre-op Timeout Performed Pre-procedure: timeout performed Consent Obtained: Yes Patient identity confirmed: arm band and patient Reason for block: post-op pain management/at surgeon's request Staffing Anesthesiologist: Sally Couch DO Performed by: anesthesiologist Preparation Sterility Preparation: hand hygiene performed prior to procedure, sterile gloves, drapes, and procedure tray, surgical cap used, mask used, sterile drape used during line insertion, skin prep agent completely dried prior to procedure Site Prep: chlorhexidine Pre-Procedure Neuro Exam Location: RUE Procedure Details Patient Position: supine Monitoring: Pulse OX and NIBP Block Type Approach: interscalene Laterality: right Injection Technique: single-shot Ultrasound Guided: Yes Image in Chart: no Local Infiltration: Yes Needle Needle Type: blunt and echogenic Needle Gauge: 21 G Needle Length: 110 mm Needle Localization: ultrasound and anatomical landmarks Assessment Injection assessment: negative aspiration, no paresthesia on injection, incremental injection and local visualized surrounding nerve on ultrasound Paresthesia: none Post-Procedure Neuro Exam Expected Regional Anesthesia: Yes Medications Administered ropivacaine (PF) 5 mg/mL (0.5 %) injection (NAROPIN) - peripheral nerve block 20 mL - 01/01/2024 8:31:00 AM SIGNATURE: Sally Couch DO PATIENT NAME: Carina Ham DATE: January 01, 2024 TIME: 9:45 AM CSN: [id number] [facility] 01-01-2024 Note HNO ID: [id number] Author: EDWIN ANDERSON RN Service: Nursing Author Type: Registered Nurse Type: Nursing Progress Note Filed: 01/01/2024 08:35 Note Text: Placed on monitor for block [facility] 12-31-2023 Miscellaneous Notes Call to patient to confirm Date,Time and Location for surgery scheduled. Date: 01/01/2024 Arrival time:6:30am for 8:30am surgery, [facility] DME: none Supervisor Pyrotechnic Loading: confirmed DME: confirmed documented in this encounter [facility] 12-20-2023 Note HNO ID: [id number] Author: CRISTAL CHU APRN.CNP Service: ? Author Type: Nurse Practitioner Type: Progress Notes Filed: 12/20/2023 14:11 Note Text: Summary: PAT Left a message to Lynette at Dr. Bedoya's office to get a copy of the medical optimization per PAT visit. Will have Leydi in CC follow up to retrieve a copy. [facility] 12-19-2023 History and physical note HISTORY AND PHYSICAL EXAMINATION SERVICE DATE: 12/19/2023 SERVICE TIME: 9:20 AM PRIMARY CARE PHYSICIAN: La Melendez MD Assessment Patient has the following medical conditions which may affect sherice-operative course: Pre-op examination see note for medical conditions which may affect sherice-operative course that were addressed at today's visit. Traumatic complete tear of right rotator cuff Surgery scheduled 01/01/24. Tendinopathy of right biceps tendon Surgery scheduled 01/01/24. Asthma Albuterol. Patient uses rescue inhaler one- two times a year at altitude depending on travel. Denies hospitalization in the last year due to respiratory issues. Instructed to use inhaler as prescribed and to bring inhaler to surgery. Hypothyroidism Levothyroxine. Instructed to take morning of surgery. TSH 1.54 01/22/23. MTHFR mutation Patient had own genetic testing done. She reports she treats on her own. L-methylfolate. Instructed to stop 7 days prior to surgery. Denies any history of DVT/PE. Pereira Activity Status Index: METS: Climb a flight of stairs or walk up a hill (5.50 METs) DASI Score: 5.5 Patient denies any chest pain or undue shortness of breath with the above physical activity. ARISCAT Score: Age: 51-80 Preoperative SpO2: >=96% Preoperative anemia: Yes Surgical incision: peripheral Duration of surgery: >3 hrs Emergency procedure: No ARISCAT Score: ANESTHESIA FINDINGS: Intubation History: No history of difficult intubation. No abnormal airway history Significant Anesthesia Considerations: none Airway History: No history of difficult airway No abnormal airway history I - PHYSICAL EVALUATION AIRWAY Patient intubated: No. DENTAL Dental findings: teeth intact. Additional comments: + crowns. II - ANESTHESIA PLAN Anesthetic Plan: general Beta Sunil Monitoring Plan Post Procedure Analgesic Plan Prepared for Surgery: CONSULTS: The following consults have been initiated at this time: primary care/internal medicine (scheduled). Planned Anesthetic: general The Following Tests/Procedures Have Been Initiated: No orders entered in Epic per surgeon. BMP and CBC ordered in PAT per CASSIUS. REASON FOR VISIT: Carina Ham is a 68 year old female who is scheduled for Procedure(s) with comments: ARTHROSCOPY SHOULDER ROTATOR CUFF (Right) - general with regional block ARTHROSCOPY SHOULDER BICEPS TENODESIS (Right) ARTHROSCOPY SHOULDER WITH SUBACROMIAL DECOMPRESSION (Right) at the request of Dr. Georgia Bedoya for routine H&P. My final recommendation will be communicated back to the requesting physician by way of shared medical record or letter. Subjective The patient has the following: ACTIVE PROBLEM LIST Allergic Rhinitis, Cause Unspecified Asthma Benign Neoplasm of Colon Hemorrhage of Gastrointestinal Tract, Unspecified Internal Hemorrhoids Without Mention of Complication Diverticulosis of Colon (Without Mention of Hemorrhage) Pre-Op Examination Traumatic Complete Tear of Right Rotator Cuff Tendinopathy of Right Biceps Tendon Hypothyroidism Mthfr Mutation COVID-19 Immunization Status Covid-19 Vaccine (Series Information) Completed 07/17/2023 Imm Admin: COVID-19 vaccine, age 12+ yr, season (Estoreify) 06/25/2022 Imm Admin: COVID-19 vaccine, age 12+ yr, bivalent (MODERNA) 02/19/2022 Imm Admin: COVID-19 original vaccine, full dose, monovalent (MODERNA) Only the first 3 history entries have been loaded, but more history exists. CHIEF COMPLAINT: The reason for this visit is to perform a comprehensive review of the patients past medical history, assess their current health status and obtain any additional testing required based on anesthesia guidelines. To assess and identify potential anesthesia problems, particularly those that may suggest potential complications or contraindications to the planned procedure. HPI: Patient is a 68 year old female who presents for presurgical testing. Patient has a history of right shoulder pain. She reports sustaining an injury to the shoulder after a fall in October 2023. She reports an increase in weakness and pain. She reports a decrease in range of motion and strength. MRI was performed. Denies any pain at PAT visit. Denies any numbness. Endorses some slight tingling over the past couple of days. Denies any recent fever or chills. Patient denies any other problems or concerns at this time. Risks and benefits of the procedure discussed by Surgeon and patient agreed to proceed with planned procedure. REVIEW OF SYSTEMS: General: Negative for: weight loss >10% of BW in last 6 months, malaise and fever. Neurological: Negative for: seizures and strokes. Respiratory: Positive for: asthma. Negative for: COPD, pneumonia within 6 weeks, URI < 2 weeks and obstructive sleep apnea. Cardiovascular: Negative for: atrial fibrillation, CAD, chest pain, CHF, DVT/PE, hyperlipidemia and hypertension. GI: Negative for: GERD and liver disease. : Negative for: frequent urination, hematuria and urgency. 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 Endocrine: Positive for: hypothyroidism. Negative for: diabetes mellitus and hyperthyroidism. Hematology: No history of bleeding or clotting disorder. Patient is not taking anti-coagulation or platelet medications. No history of hematological symptoms or problems. Oncology: No history of CA metastasis, chemo within 30 days, or radiotherapy within 90 days. No history of oncological symptoms or problems. Psych: No history of psychiatric symptoms or problems. Musculoskeletal: See HPI. Positive for: joint pain. Skin: Negative for lesions, rash and itching. PAST MEDICAL HISTORY Diagnosis Date Allergic rhinitis, cause unspecified Allergic rhinitis Benign neoplasm of colon Diverticulosis of colon (without mention of hemorrhage) Exercise-induced asthma Hypothyroidism MTHFR mutation Traumatic complete tear of right rotator cuff PAST SURGICAL HISTORY Procedure Laterality Date APPENDECTOMY COLONOSCOPY FLX DX W/COLLJ SPEC WHEN PFRMD 06/12/2007 Colonoscopy DILATION & CURETTAGE DX&/THER NONOBSTETRIC Dilation & curettage LAPS SURG CHOLECYSTECTOMY W/CHOLANGIOGRAPHY 03/26/[address] Ying OOPHORECTOMY PARTIAL/TOTAL UNI/BI with the right remaining, but no tube THYROIDECTOMY SUBTOTAL/PARTIAL 12/2016 TOTAL ABDOMINAL HYSTERECT W/WO RMVL TUBE OVARY Hysterectomy, ALBERTO FAMILY HISTORY Problem Relation Age of Onset Thyroid Mother graves disease Hypertension Father orthostatic and tia's other (Shy Drager) Father Breast Cancer Maternal Grandmother Breast Cancer Paternal Grandmother unsure Social History Tobacco Use Smoking status: Never Smokeless tobacco: Never Vaping Use Vaping Use: Never used Substance Use Topics Alcohol use: Yes Comment: wine with dinner at times Drug use: No Prior to Admission medications as of 12/19/23 0920 Medication Sig Last Dose Taking L-METHYLFOLATE 15 mg tab Take by mouth once daily. Yes calcium carbonate (CALCIUM 500) 500 mg calcium (1,250 mg) tablet Take 2 tablets by mouth once daily. Yes levothyroxine 88 mcg cap Take 88 mcg by mouth daily before breakfast. Yes montelukast (SINGULAIR) 10 mg tablet Take 10 mg by mouth daily at bedtime. Yes mometasone furoate(NASONEX 50 MCG/ACTUATION SPRAY) 2 sprays each nostril daily Yes loratadine (CLARITIN) 10 mg ORAL Tab Take one(1) tablet daily. As needed. Yes THERAPEUTIC MULTIVITAMIN TAB Take one(1) tablet daily. Yes ALBUTEROL 90 MCG/ACTUATION AEROSOL INHALER 2 puffs every four (4) hours as needed Yes ibuprofen (MOTRIN) 600 mg tablet Take 1 tablet by mouth every 6 hours as needed for pain. No medication comments found. ALLERGIES Allergen Reactions Molds [Other] Valdecoxib GI Upset, Diarrhea Objective PHYSICAL EXAM: General: alert and oriented and healthy appearance. Pertinent negatives noted - not distressed. Skin: normal color, no rash or lesions. HEENT: EOM intact and pupils equal round. Cardiovascular: regular rate and rhythm, normal S1 and S2, no rub, murmurs, or gallop. Respiratory: normal breath sounds, no wheezes or crackles. No chest wall deformity or tenderness. Abdomen: bowel sounds present. Extremities: Positive for joint swelling. Neurological: normal cognition and motor skills. Positive for limb weakness. Limb weakness located right UE. PAIN ASSESSMENT: Pain Pain Level: 0 VITALS: BP 144/88 Pulse 67 Temp 98.2 Resp 18 Ht 5' 6" (1.68m) Wt 192 lb 9.6 oz (87.4kg) SpO2 97% BMI 31.10 kg/(m^2). Diagnostic tests reviewed for today's visit: Lab Value Units Date High Low HB No results within date range. HCT No results within date range. WBC No results within date range. PLT No results within date range. NA No results within date range. K No results within date range. GLUC No results within date range. BUN No results within date range. CREAT No results within date range. PTSEC No results within date range. INR No results within date range. APTT No results within date range. ALT No results within date range. AST No results within date range. TBILI No results within date range. TSH No results within date range. Lab Value Units Date High Low HCGQT No results within date range. UHCG No results within date range. HCG, BODY* No results within date range. Lab Value Units Date High Low ABORHD No results within date range. ABSCREEN No results within date range. No results found for: "HBA1C" No results found for this or any previous visit (from the past 8760 hour(s)). No results found for this or any previous visit (from the past 44531 hour(s)). Implantable Devices: None Assessment/Plan Traumatic complete tear of right rotator cuff, subsequent encounter [S46.011D] Tendinopathy of right biceps tendon [M67.921] PLAN Planned Procedure: Procedure(s) with comments: ARTHROSCOPY SHOULDER ROTATOR CUFF (Right) - general with regional block ARTHROSCOPY SHOULDER BICEPS TENODESIS (Right) ARTHROSCOPY SHOULDER WITH SUBACROMIAL DECOMPRESSION (Right) I spent a total of 50 minutes on the date of the service which included preparing to see the patient, [id number] patient care, completing clinical documentation, obtaining and/or reviewing separately obtained history, performing a medically appropriate examination, counseling and educating the patient/family/caregiver, and ordering medications, tests, or procedures. Instructions Given to Patient: Instructions located in the after visit summary. Patient given verbal and written preop instructions and voices comprehension and compliance. SIGNATURE: Georgia Jones APRN.CNP PATIENT NAME: Carina Ham DATE: December 19, 2023 TIME: 9:20 AM PAGER/CONTACT #: documented in this encounter [facility] 12-16-2023 History of Present illness Narrative Subjective Patient ID: Carina Ham is a 68 y.o. female who presents for surgical clearance (EP. Surgical Clearance R shoulder.). HPI Surgery is planned 12/31 for torn rotator cuff. She fell on her shoulder after slipping on ice in October has seen Ortho and PT she has multiple partial to complete tears Has preop appt this week for blood work and EKG at [facility] and preop testing Here today for preop with ks for medical clearance Patient has been stable with all her routine health issues her blood pressure is good and she is on no prohibitive medications. She has previously tolerated anesthesia well. She has no cold symptoms. Patient denies chest pains headaches dizziness lightheadedness or shortness of breath she does not have any lower extremity edema her exercise tolerance is good Review of Systems Review of systems was performed and is otherwise negative except as noted in HPI. Objective BP 106/78 Pulse 76 Temp 36.7 C (98 F) (Oral) Ht 1.676 m (5' 6") Wt 87.1 kg (192 lb) SpO2 98% BMI 30.99 kg/m Physical Exam HEENT is normal Lungs clear bilaterally Heart is regular rate rhythm no murmurs Abdomen benign Lower extremities no edema She has limited range of motion of the right shoulder Assessment/Plan Diagnoses and all orders for this visit: Traumatic incomplete tear of right rotator cuff, subsequent encounter Hypothyroidism, unspecified type - levothyroxine (Synthroid, Levoxyl) 88 mcg tablet; Take 1 tablet (88 mcg) by mouth once daily in the morning. Take before meals. She has lumbar surgery She may proceed She should get preop testing at the hospital Dr Georgia Alexandre [phone] La Melendez MD documented in this encounter [facility] Work Phone: 12-13-2023 Instructions Georgia Jones APRN.DOCTOR OF VETERINARY MEDICINE - 12/13/2023 4:09 PM EST PATIENT PREOPERATIVE INSTRUCTIONS Your surgeon has scheduled for your procedure at this surgery center: [facility]: [phone], [address], [place] [address] Please enter through the main entrance and proceed to the blue elevators. The surgery agenda center is located to the left of the blue elevator. Please read below carefully for your personalized instructions. SURGERY DATE : 01/01/24 Your surgeon's office will provide you with your ARRIVAL TIME for surgery. - If you have not received an arrival time by the afternoon before your surgery date, please follow up with your surgeon's office. - If you are scheduled for a Saturday surgery, please make sure you have your arrival time by Saturday afternoon. Please be aware that emergency situations arise, which may delay or change your surgical time. If this happens, your surgeon's office will notify you as soon as possible and regret any inconvenience. Requirement for Vaccinations : 72-hour period between getting vaccine and date of surgery. Dietary Restrictions: - Nothing to eat or drink after midnight. This is important because if you do, your surgery may have to be cancelled Blood Thinning Medications: - Stop NSAIDS (Ibuprofen, Advil, Aleve, Motrin, Celebrex, Mobic, etc.) 7 days before surgery, as directed by your surgeon. You may take Tylenol (Acetaminophen) or any of your pain medications that do not contain aspirin or NSAIDS as needed. IF YOU TAKE ANY OF THE FOLLOWING BLOOD THINNERS, PLEASE CONTACT YOUR SURGEON AND THE PHYSICIAN WHO PRESCRIBES IT FOR YOU IN ORDER TO GET PERIOPERATIVE INSTRUCTIONS SOON POSSIBLE. BLOOD THINNERS: Aspirin , Coumadin, Plavix, Eliquis, Pradaxa, Xarelto, Lovenox, Brilinta, Effient, Savaysa, Arixtra, etc - Stop Vitamin E, fish oil, multivitamins, Marijuana, CBD oil and other over the counter herbals and dietary supplements 7 days before surgery. -This would not apply to cancer patients who are prescribed Marinol or any other prescription form on marijuana or CBD. Medications: Approved medications to take the morning of surgery with a sip of water: BP, HCTZ, Heart, thyroid, psych, seizure, and pain medications excluding NSAIDS. Use inhalers as prescribed. Please bring inhalers. Pre-Surgery Med Instructions Medication Instructions L-METHYLFOLATE 15 mg tab Stop 7 days before surgery calcium carbonate (CALCIUM 500) 500 mg calcium (1,250 mg) tablet Continue until night before surgery levothyroxine 88 mcg cap Take morning of surgery with sip of water, no other fluids montelukast (SINGULAIR) 10 mg tablet Continue until night before surgery mometasone furoate(NASONEX 50 MCG/ACTUATION SPRAY) Continue until night before surgery loratadine (CLARITIN) 10 mg ORAL Tab Continue until night before surgery THERAPEUTIC MULTIVITAMIN TAB Stop 7 days before surgery ALBUTEROL 90 MCG/ACTUATION AEROSOL INHALER Use as prescribed and bring inhaler to surgery. Pain Medications: Tylenol for pain as needed and if you are not allergic to. If you start any new medications after today's visit, please contact the surgeon's office. Important Reminders: - If you use CPAP/BIPAP, bring the machine with you to the surgery center. - If you are prescribed inhalers for breathing, continue using them AND bring them to the surgery center. - Candy, mints, gum and tobacco products are NOT permitted the morning of surgery. - Hearing aids, dentures and glasses may be worn the morning of surgery. - NO jewelry, body piercings, makeup, hairpins or contacts are to be worn the day of surgery. - Oral hygiene and a shower or bath is required the evening before or the morning of surgery. Use the Hibiclens body wash supplied to you along with the instruction. - NO lotion, creams, powders or deodorants on the skin the day of surgery - Wear loose, comfortable clothing that will accommodate bandages. - Your length of stay will be determined by your surgeon - You will need to have someone else (Family or friend) drive you home once discharged from the hospital. You are not allowed to drive yourself home after surgery. - YOU MUST HAVE A RESPONSIBLE MARKETING LIAISON TAKE YOU HOME. A METEOROLOGICAL OBSERVER, CAB OR UBER MARKETING LIAISON CANNOT BE MADE A RESPONSIBLE MARKETING LIAISON. - You cannot stay in a hotel alone after outpatient surgery. You will not be permitted to have your surgery, if you do not have someone to take care of you. - It is recommended patients have a 72-hour period between getting their vaccine and date of surgery. - If you develop symptoms such as a fever, cold, or flu, or have other changes to your health within TWO DAYS of scheduled surgery or the morning of surgery, please contact the surgery center above. Personal Belongings: - Leave ALL valuables and money at home or with family members. - You will need a form of ID and insurance card to check in the morning of surgery. - You will have to wear a hospital gown during your stay but if you wish to bring undergarments for after surgery you may. Hibiclens provided The anti-bacterial soap (Hibiclens) should be used TWICE prior to surgery: The night before surgery and the morning of surgery: - If you plan to wash your hair, do so with your regular shampoo. Then rinse hair and body thoroughly to remove any shampoo residue. - Wash your face with water or your regular soap. - Thoroughly rinse your body with water from the neck down - Apply Hibiclens directly on your skin or on a wet washcloth and wash gently. Move away from the shower stream when applying Hibiclens to ensure the CHG binds to the skin. - Pay special attention to the area where your surgery will be performed - Rinse thoroughly - Apply clean bedding and clean clothing after shower Do not use your regular soap after applying and rinsing Hibiclens. Do not apply any lotions, deodorants, powders, or perfumes to the body areas that have been cleaned with Hibiclens. Do not use Hibiclens: - If you are allergic to Chlorhexidine gluconate or any other ingredient in this preparation - In contact with the meninges - In the genital area - On wounds that involve more than the superficial layers of the skin Please review Hibiclens pamphlet prior to use. If you already have an Advance Directive, please fax a copy to [phone] or email to for it to be added to your chart. If you do not have an Advance Directive, you can find the appropriate form and more information at [email or web address]. We recommend that you complete the Advance Directive form found on the website and bring it with you the day of your surgery. It can be witnessed and scanned into your chart that day. Georgia Jones APRN.CNP 12/19/23 documented in this encounter [facility] 11-22-2023 Note HNO ID: [id number] Author: GEORGIA BEDOYA, DO Service: ? Author Type: Physician Type: Progress Notes Filed: 11/25/2023 08:27 Note Text: Patient presents with: Right Shoulder - Established Patient Carina Ham is a 68 year old female who presents for follow-up right shoulder MRI. The patient initially sustained an injury to her right shoulder in late October 2023. The patient is right-hand dominant. She slipped and fell about 3 weeks ago injuring her right shoulder. She has had an acute decrease in her range of motion and strength of her right shoulder following this injury. She denies shoulder pain or weakness prior to this injury. She denies any numbness or tingling in her distal right upper extremity. At our last visit, the patient was provided with a home rehab program for her right shoulder and has had improvement in abduction and internal rotation. She notes that she is still struggling with forward elevation and external rotation. Reviewed nursing note and current pain scale. PAST MEDICAL HISTORY Diagnosis Date Allergic rhinitis, cause unspecified Allergic rhinitis Benign neoplasm of colon Diverticulosis of colon (without mention of hemorrhage) Exercise-induced asthma Hypothyroidism PAST SURGICAL HISTORY Procedure Laterality Date APPENDECTOMY COLONOSCOPY FLX DX W/COLLJ SPEC WHEN PFRMD 06/12/2007 Colonoscopy DILATION AND CURETTAGE DXAND/THER NONOBSTETRIC Dilation AND curettage LAPS SURG CHOLECYSTECTOMY W/CHOLANGIOGRAPHY 03/26/[address] Ying OOPHORECTOMY PARTIAL/TOTAL UNI/BI with the right remaining, but no tube THYROIDECTOMY SUBTOTAL/PARTIAL 12/2016 TOTAL ABDOMINAL HYSTERECT W/WO RMVL TUBE OVARY Hysterectomy, ALBERTO FAMILY HISTORY Problem Relation Age of Onset Thyroid Mother graves disease Hypertension Father orthostatic and tia's other (Shy Drager) Father Breast Cancer Maternal Grandmother Breast Cancer Paternal Grandmother unsure Social History Tobacco Use Smoking status: Never Smokeless tobacco: Never Substance Use Topics Alcohol use: Yes Comment: wine with dinner at times Drug use: No Medications: Current Outpatient Medications Medication Sig ibuprofen (MOTRIN) 600 mg tablet Take 1 tablet by mouth every 6 hours as needed for pain. calcium carbonate (CALCIUM 500) 500 mg calcium (1,250 mg) tablet Take 2 tablets by mouth once daily. levothyroxine 88 mcg cap Take 88 mcg by mouth daily before breakfast. loratadine (CLARITIN) 10 mg ORAL Tab Take one(1) tablet daily. As needed. THERAPEUTIC MULTIVITAMIN TAB Take one(1) tablet daily. ALBUTEROL 90 MCG/ACTUATION AEROSOL INHALER 2 puffs every four (4) hours as needed montelukast (SINGULAIR) 10 mg tablet Take 10 mg by mouth daily at bedtime. mometasone furoate(NASONEX 50 MCG/ACTUATION SPRAY) 2 sprays each nostril daily No current facility-administered medications for this visit. Allergies: ALLERGIES Allergen Reactions Bextra [Valdecoxib] GI Upset Molds [Other] Physical Examination: Resp 18 Ht 5' 6" (1.68m) Wt 192 lb (87.1kg) BMI 31.00 kg/(m2). Right Shoulder Inspection: No malalignment, atrophy, erythema, swelling, warmth, or scapular winging. AC prominence normal Bony Palpation: No tenderness of the sternoclavicular joint,, the clavicle, the acromioclavicular joint, the greater tuberosity, tenderness to palpation of the bicipital groove Soft tissue palpation: Tenderness to palpation of the lateral rotator cuff insertion, tenderness to palpation of the subdeltoid bursa Active ROM Right Shoulder: Forward Flexion: 30 degrees Abduction: 140 degrees External Rotation at zero degrees of abduction: 20 degrees Internal rotation: Sacrum Active ROM Left Shoulder: Forward Flexion: 180 degrees Abduction: 180 degrees External Rotation at zero degrees of abduction: 50 degrees Internal rotation: T7 Passive ROM Right Shoulder: Forward elevation: 180 degrees Abduction: 180 degrees Special tests: Garza: positive Lift Off: negative Empty can: positive Strength Right Shoulder Deltoid: 5/5 Biceps: 5/5 Triceps 5/5 Supraspinatus 3/5 External rotation 3/5 Internal rotation 5/5 Images: MRI Right Shoulder Physician Interpretation: Full-thickness retracted tear of the supraspinatus. Distal tendon stump is visible on the supraspinatus insertion, greater tuberosity. Superior migration of the humeral head. Partial-thickness tear of the infraspinatus. Partial-thickness tear of the subscapularis. Assessment and Plan: 1. Traumatic complete tear of right rotator cuff, subsequent encounter - ICD9: V58.89, 840.4, ICD10: S46.011D The physical exam and MRI findings were discussed with the patient today. The patient has a full-thickness, retracted tear of her supraspinatus as well as a tear of the distal subscapularis along with tendinosis of her long head of the biceps. We discussed treatment options today including ellen (more content not included)... [facility] 11-22-2023 History of Present illness Narrative Patient presents with: Right Shoulder - Established Patient Carina Ham is a 68 year old female who presents for follow-up right shoulder MRI. The patient initially sustained an injury to her right shoulder in late October 2023. The patient is right-hand dominant. She slipped and fell about 3 weeks ago injuring her right shoulder. She has had an acute decrease in her range of motion and strength of her right shoulder following this injury. She denies shoulder pain or weakness prior to this injury. She denies any numbness or tingling in her distal right upper extremity. At our last visit, the patient was provided with a home rehab program for her right shoulder and has had improvement in abduction and internal rotation. She notes that she is still struggling with forward elevation and external rotation. Reviewed nursing note and current pain scale. PAST MEDICAL HISTORY Diagnosis Date Allergic rhinitis, cause unspecified Allergic rhinitis Benign neoplasm of colon Diverticulosis of colon (without mention of hemorrhage) Exercise-induced asthma Hypothyroidism PAST SURGICAL HISTORY Procedure Laterality Date APPENDECTOMY COLONOSCOPY FLX DX W/COLLJ SPEC WHEN PFRMD 06/12/2007 Colonoscopy DILATION & CURETTAGE DX&/THER NONOBSTETRIC Dilation & curettage LAPS SURG CHOLECYSTECTOMY W/CHOLANGIOGRAPHY 03/26/[address] Ying OOPHORECTOMY PARTIAL/TOTAL UNI/BI with the right remaining, but no tube THYROIDECTOMY SUBTOTAL/PARTIAL 12/2016 TOTAL ABDOMINAL HYSTERECT W/WO RMVL TUBE OVARY Hysterectomy, ALBERTO FAMILY HISTORY Problem Relation Age of Onset Thyroid Mother graves disease Hypertension Father orthostatic and tia's other (Shy Drager) Father Breast Cancer Maternal Grandmother Breast Cancer Paternal Grandmother unsure Social History Tobacco Use Smoking status: Never Smokeless tobacco: Never Substance Use Topics Alcohol use: Yes Comment: wine with dinner at times Drug use: No Medications: Current Outpatient Medications Medication Sig ibuprofen (MOTRIN) 600 mg tablet Take 1 tablet by mouth every 6 hours as needed for pain. calcium carbonate (CALCIUM 500) 500 mg calcium (1,250 mg) tablet Take 2 tablets by mouth once daily. levothyroxine 88 mcg cap Take 88 mcg by mouth daily before breakfast. loratadine (CLARITIN) 10 mg ORAL Tab Take one(1) tablet daily. As needed. THERAPEUTIC MULTIVITAMIN TAB Take one(1) tablet daily. ALBUTEROL 90 MCG/ACTUATION AEROSOL INHALER 2 puffs every four (4) hours as needed montelukast (SINGULAIR) 10 mg tablet Take 10 mg by mouth daily at bedtime. mometasone furoate(NASONEX 50 MCG/ACTUATION SPRAY) 2 sprays each nostril daily No current facility-administered medications for this visit. Allergies: ALLERGIES Allergen Reactions Bextra [Valdecoxib] GI Upset Molds [Other] Physical Examination: Resp 18 Ht 5' 6" (1.68m) Wt 192 lb (87.1kg) BMI 31.00 kg/(m^2). Right Shoulder Inspection: No malalignment, atrophy, erythema, swelling, warmth, or scapular winging. AC prominence normal Bony Palpation: No tenderness of the sternoclavicular joint,, the clavicle, the acromioclavicular joint, the greater tuberosity, tenderness to palpation of the bicipital groove Soft tissue palpation: Tenderness to palpation of the lateral rotator cuff insertion, tenderness to palpation of the subdeltoid bursa Active ROM Right Shoulder: Forward Flexion: 30 degrees Abduction: 140 degrees External Rotation at zero degrees of abduction: 20 degrees Internal rotation: Sacrum Active ROM Left Shoulder: Forward Flexion: 180 degrees Abduction: 180 degrees External Rotation at zero degrees of abduction: 50 degrees Internal rotation: T7 Passive ROM Right Shoulder: Forward elevation: 180 degrees Abduction: 180 degrees Special tests: Garza: positive Lift Off: negative Empty can: positive Strength Right Shoulder Deltoid: 5/5 Biceps: 5/5 Triceps 5/5 Supraspinatus 3/5 External rotation 3/5 Internal rotation 5/5 Images: MRI Right Shoulder Physician Interpretation: Full-thickness retracted tear of the supraspinatus. Distal tendon stump is visible on the supraspinatus insertion, greater tuberosity. Superior migration of the humeral head. Partial-thickness tear of the infraspinatus. Partial-thickness tear of the subscapularis. Assessment and Plan: 1. Traumatic complete tear of right rotator cuff, subsequent encounter - ICD9: V58.89, 840.4, ICD10: S46.011D The physical exam and MRI findings were discussed with the patient today. The patient has a full-thickness, retracted tear of her supraspinatus as well as a tear of the distal subscapularis along with tendinosis of her long head of the biceps. We discussed treatment options today including both nonoperative and operative treatment options. We discussed corticosteroid injections, guided physical therapy of the right shoulder. We also discussed surgical intervention with right shoulder arthroscopy with rotator cuff repair, subacromial decompression, and possible biceps tenodesis. We discussed a 6 to 12-month recovery time following the surgery and my guided rehab protocol following surgical intervention. We discussed the risks of surgery including: Infection, bleeding, neurovascular injury, DVT or thromboembolic event, medical risks associated with surgery, arthrofibrosis or postoperative stiffness, failure of the rotator cuff tendon to heal, need for revision surgery or future procedure. After a thorough discussion of the risks, benefits, and alternatives to surgery, the patient would like to proceed with right shoulder arthroscopy, rotator cuff repair, subacromial decompression, possible biceps tenodesis. All questions were answered today and patient is agreeable to this plan. Georgia Bedoya DO Orthopedic Surgery, Sports Medicine Medical Decision Making: Problems: Moderate: Acute complicated injury Data: Unique test result(s) reviewed: 2 Risk: High: Decision on elective major surgery w/ risk factors Medical Decision Making Level: 4 - Moderate documented in this encounter [facility] 11-13-2023 History of Present illness Narrative Radiology Service Progress Note PATIENT NAME: Carina Ham DATE OF SERVICE: November 13, 2023 TIME: 11:07 AM PATIENT IDENTITY VERIFICATION COMPLETED USING TWO (2) IDENTIFIERS: Name and Date of confirmed by patient verbally. FALL SCREENING: Has the patient had 2 falls in the last year or 1 fall with injury or currently using an Ambulatory Assistive Device (Walker, Cane, Wheelchair, Crutches, etc.)? No PATIENT GENDER DATA: Female. status: : No status: NO. PATIENT RELEVANT IMPLANT DATA REVIEWED: Yes PATIENT PRESENTS WITH AN IMPLANTABLE OR ATTACHED JEWELRY STORE MANAGER: No RADIOLOGY DEPARTMENT: MR; Exam(s) Completed: Upper MSK: Shoulder, right PERIPHERAL IV DATA: Not applicable SIGNED BY: RT Len(Arsalan) November 13, 2023 11:07 AM documented in this encounter [facility] 11-13-2023 Note HNO ID: [id number] Author: ZEINA LANG RT(R) Service: Radiology Author Type: Technologist Type: Progress Notes Filed: 11/13/2023 11:07 Note Text: Radiology Service Progress Note PATIENT NAME: Carina Ham DATE OF SERVICE: November 13, 2023 TIME: 11:07 AM PATIENT IDENTITY VERIFICATION COMPLETED USING TWO (2) IDENTIFIERS: Name and Date of confirmed by patient verbally. FALL SCREENING: Has the patient had 2 falls in the last year or 1 fall with injury or currently using an Ambulatory Assistive Device (Walker, Cane, Wheelchair, Crutches, etc.)? No PATIENT GENDER DATA: Female. status: : No status: NO. PATIENT RELEVANT IMPLANT DATA REVIEWED: Yes PATIENT PRESENTS WITH AN IMPLANTABLE OR ATTACHED JEWELRY STORE MANAGER: No RADIOLOGY DEPARTMENT: MR; Exam(s) Completed: Upper MSK: Shoulder, right PERIPHERAL IV DATA: Not applicable SIGNED BY: RT Len(Arsalan) November 13, 2023 11:07 AM [facility] 11-12-2023 Note HNO ID: [id number] Author: GEORGIA BEDOYA, DO Service: ? Author Type: Physician Type: Progress Notes Filed: 11/13/2023 09:33 Note Text: Patient presents with: Right Shoulder - New Carina Ham is a 68 year old female who presents for right shoulder pain and weakness. The patient lives in [facility]. She is accompanied by her today. She is right-hand dominant. The patient states that she slipped and fell about 9 days ago injuring her right shoulder. Since that time, she has noticed acute decrease in range of motion and strength of her right shoulder. She denies any history of shoulder issues prior to her injury. 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 He denies any distal numbness and tingling in her right upper extremity. Reviewed nursing note and current pain scale. PAST MEDICAL HISTORY Diagnosis Date Allergic rhinitis, cause unspecified Allergic rhinitis Benign neoplasm of colon Diverticulosis of colon (without mention of hemorrhage) Exercise-induced asthma Hypothyroidism PAST SURGICAL HISTORY Procedure Laterality Date APPENDECTOMY COLONOSCOPY FLX DX W/COLLJ SPEC WHEN PFRMD 06/12/2007 Colonoscopy DILATION AND CURETTAGE DXAND/THER NONOBSTETRIC Dilation AND curettage LAPS SURG CHOLECYSTECTOMY W/CHOLANGIOGRAPHY 03/26/[address] Ying OOPHORECTOMY PARTIAL/TOTAL UNI/BI with the right remaining, but no tube THYROIDECTOMY SUBTOTAL/PARTIAL 12/2016 TOTAL ABDOMINAL HYSTERECT W/WO RMVL TUBE OVARY Hysterectomy, ALBERTO FAMILY HISTORY Problem Relation Age of Onset Thyroid Mother graves disease Hypertension Father orthostatic and tia's other (Shy Drager) Father Breast Cancer Maternal Grandmother Breast Cancer Paternal Grandmother unsure Social History Tobacco Use Smoking status: Never Smokeless tobacco: Never Substance Use Topics Alcohol use: Yes Comment: wine with dinner at times Drug use: No Medications: Current Outpatient Medications Medication Sig ibuprofen (MOTRIN) 600 mg tablet Take 1 tablet by mouth every 6 hours as needed for pain. calcium carbonate (CALCIUM 500) 500 mg calcium (1,250 mg) tablet Take 2 tablets by mouth once daily. levothyroxine 88 mcg cap Take 88 mcg by mouth daily before breakfast. mometasone furoate(NASONEX 50 MCG/ACTUATION SPRAY) 2 sprays each nostril daily loratadine (CLARITIN) 10 mg ORAL Tab Take one(1) tablet daily. As needed. THERAPEUTIC MULTIVITAMIN TAB Take one(1) tablet daily. ALBUTEROL 90 MCG/ACTUATION AEROSOL INHALER 2 puffs every four (4) hours as needed montelukast (SINGULAIR) 10 mg tablet Take 10 mg by mouth daily at bedtime. No current facility-administered medications for this visit. Allergies: ALLERGIES Allergen Reactions Bextra [Valdecoxib] GI Upset Molds [Other] Physical Examination: Resp 18 Ht 5' 6" (1.68m) Wt 190 lb (86.2kg) BMI 30.68 kg/(m2). Right Shoulder Inspection: No malalignment, atrophy, erythema, swelling, warmth, or scapular winging. AC prominence normal Bony Palpation: No tenderness of the sternoclavicular joint, the clavicle, the acromioclavicular joint, the greater tuberosity Soft tissue palpation: Tenderness to palpation of the lateral rotator cuff insertion, tenderness to palpation of the subdeltoid bursa Active ROM Right Shoulder: Forward Flexion: 30 degrees Abduction: 45 degrees External Rotation at zero degrees of abduction: 20 degrees Internal rotation: Sacrum Active ROM Left Shoulder: Forward Flexion: 180 degrees Abduction: 180 degrees External Rotation at zero degrees of abduction: 50 degrees Internal rotation: L4 Passive ROM Right Shoulder Forward elevation: 180 degrees Abduction: 180 degrees Special tests: Garza: positive Lift Off: negative Empty can: positive Strength right Shoulder Deltoid: 5/5 Biceps: 5/5 Triceps 5/5 Supraspinatus 3/5 External rotation 3/5 Internal rotation 5/5 Images: XR Right shoulder, AP, Axillary, Y view demonstrates: No acute fracture or dislocation. Minimal osteophyte present along the inferior humeral head without significant degenerative changes of the glenohumeral joint. Assessment and Plan: 1. Traumatic complete tear of right rotator cuff, initial encounter - ICD9: 840.4, ICD10: S46.011A (primary diagnosis) 2. Right shoulder pain, unspecified chronicity - ICD9: 719.41, ICD10: M25.511 The physical exam and imaging findings were discussed with the patient today. The patient has an acutely reduced range of motion of her right shoulder following a slip and fall 9 days ago. She is able to forward elevate to 30 degrees and abduct to about 45 degrees. We discussed a home exercise program to maintain range of motion of her right shoulder and a home exercise program was provided today. I discussed with the patient that based on her physical exam, I do suspect she has a full-thickness rotator cuff tear. (more content not included)... [facility] 11-12-2023 History of Present illness Narrative Radiology Service Progress Note PATIENT NAME: Carina Ham DATE OF SERVICE: November 12, 2023 TIME: 8:28 AM PATIENT IDENTITY VERIFICATION COMPLETED USING TWO (2) IDENTIFIERS: Name and Date of confirmed by patient verbally. FALL SCREENING: Has the patient had 2 falls in the last year or 1 fall with injury or currently using an Ambulatory Assistive Device (Walker, Cane, Wheelchair, Crutches, etc.)? No PATIENT GENDER DATA: Female. status: : No status: NO. PATIENT RELEVANT IMPLANT DATA REVIEWED: Not Applicable PATIENT PRESENTS WITH AN IMPLANTABLE OR ATTACHED JEWELRY STORE MANAGER: No RADIOLOGY DEPARTMENT: General X-ray: Exam(s) Completed: Upper Extremity X-Ray(s): Shoulder, AP / TRUE AP / AXILLARY right PERIPHERAL IV DATA: Not applicable SIGNED BY: DENTON Hong) November 12, 2023 8:28 AM documented in this encounter [facility] 11-12-2023 Note HNO ID: [id number] Author: CARMELA KIMBROUGH RT (R) Service: ? Author Type: Technologist Type: Progress Notes Filed: 11/12/2023 08:29 Note Text: Radiology Service Progress Note PATIENT NAME: Carina Ham DATE OF SERVICE: November 12, 2023 TIME: 8:28 AM PATIENT IDENTITY VERIFICATION COMPLETED USING TWO (2) IDENTIFIERS: Name and Date of confirmed by patient verbally. FALL SCREENING: Has the patient had 2 falls in the last year or 1 fall with injury or currently using an Ambulatory Assistive Device (Walker, Cane, Wheelchair, Crutches, etc.)? No PATIENT GENDER DATA: Female. status: : No status: NO. PATIENT RELEVANT IMPLANT DATA REVIEWED: Not Applicable PATIENT PRESENTS WITH AN IMPLANTABLE OR ATTACHED JEWELRY STORE MANAGER: No RADIOLOGY DEPARTMENT: General X-ray: Exam(s) Completed: Upper Extremity X-Ray(s): Shoulder, AP / TRUE AP / AXILLARY right PERIPHERAL IV DATA: Not applicable SIGNED BY: RT Gely(R) November 12, 2023 8:28 AM [facility] 01-28-2023 History of Present illness Narrative Subjective Patient ID: Carina Hma is a 67 y.o. female who presents for Med Refill and Blood work results. HPI Patient is here for follow-up today. She is on her thyroid medication and her vitamin supplementation as well as her medication for asthma. She is feeling quite well she has no new complaints. She had blood work done in [place] we reviewed that at length her thyroid [...] visit: Routine general medical examination at a health care facility - CBC and Auto Differential; [...] printed for her to get done at [place] She will call with issues La Melendez MD documented in this encounter [facility] Work Phone: 04-17-2022 History of Present illness Narrative POST [...] Doing well I have explained to Ms. Ham that she may return to normal activity with no lifting, pulling, pushing over 50 pounds, no core exercises and no lifting and twisting for a total of 4 weeks. I have encouraged her to contact me at any time with any questions or concerns that may arise. Follow up: When necessary Inge Ying MD 04/17/2022 9:38 AM documented in this encounter [facility] 04-14-2022 History of Present illness Narrative [...] jorge and soup and that helped some [facility] Work Phone: 04-13-2022 History of [...] jorge and soup and that helped some [facility] Work Phone: 03-27-2022 Note HNO ID: [id number] Author: Ivette Bird (Poultry Pinner) Service: Pharmacy Author Type: ? Type: Plan of Care Filed: 03/27/2022 3:01 PM Note Text: PHARMACY BEDSIDE DELIVERY SERVICE Patient Name: Carina Ham The marked outpatient medications were Filled at: [facility] and delivered to the patient's bedside to [facility] Medication List START taking these medications ciprofloxacin [...] or your Primary Care Provider. Ivette Bird (Poultry Pinner) PAGER: [phone] March 27, 2022 2:59 PM [facility] 03-27-2022 History of Past i llness Narrative Problem Noted Date Resolved Date Acute cholecystitis 03/27/2022 04/17/2022 documented as of this encounter (statuses as of 04/17/2022) [facility] History of Past illness Narrative* Problem Noted Date Diagnosed Date Resolved Date Acute cholecystitis 03/27/2022 04/17/20 22 Bilateral low back pain without sciatica 02/15/2022 05/17/2022 documented as of this encounter (statuses as of 11/25/2023) [facility] History of Past illness Narrative* Problem Noted Date Diagnosed Date Resolved Date Acute cholecystitis 03/27/2022 04/17/20 22 Bilateral low back pain without sciatica 02/15/2022 05/17/2022 documented as of this encounter (statuses as of 11/26/2023) [facility] History of Past illness Narrative* Problem Noted Date Diagnosed Date Resolved Date Acute cholecystitis 03/27/2022 04/17/20 22 Bilateral low back pain without sciatica 02/15/2022 05/17/2022 documented as of this encounter (statuses as of 12/19/2023) [facility] History of Past illness Narrative* Problem Noted Date Diagnosed Date Resolved Date Acute cholecystitis 03/27/2022 04/17/20 22 Bilateral low back pain without sciatica 02/15/2022 05/17/2022 documented as of this encounter (statuses as of 12/31/2023) [facility] History of Past illness Narrative* Problem Noted Date Diagnosed Date Resolved Date Acute cholecystitis 03/27/2022 04/17/20 22 Bilateral low back pain without sciatica 02/15/2022 05/17/2022 documented as of this encounter (statuses as of 01/03/2024) [facility] History of Past illness Narrative* Problem Noted Date Diagnosed Date Resolved Date Acute cholecystitis 03/27/2022 04/17/20 22 Bilateral low back pain without sciatica 02/15/2022 05/17/2022 documented as of this encounter (statuses as of 01/16/2024) [facility] History of Past illness Narrative* Problem Noted Date Diagnosed Date Resolved Date Acute cholecystitis 03/27/2022 04/17/20 22 Bilateral low back pain without sciatica 02/15/2022 05/17/2022 documented as of this encounter (statuses as of 01/24/2024) [facility] History of Past illness Narrative* Problem Noted Date Diagnosed Date Resolved Date Acute cholecystitis 03/27/2022 04/17/20 22 Bilateral low back pain without sciatica 02/15/2022 05/17/2022 documented as of this encounter (statuses as of 01/30/2024) [facility]22 NoteHNO ID: [id number] Author: Brian Rosales APRN.NUCLEAR MEDICINE OFFICER Service: Anesthesiology Author Type: Nurse Emergency Veterinary Technician Type: Anesthesia Procedure Notes Filed: 03/26/2022 3:52 PM Note Text: ANESTHESIOLOGY PROCEDURE NOTE Airway General Information Procedure Start Time/Medication Administration: 03/26/2022 3:41 PM Procedure End Time: 03/26/2022 3:43 PM Patient location during procedure: OR Timeout Performed Pre-procedure: timeout performed Consent Obtained: Yes Patient identity confirmed: arm band and patient Staffing NUCLEAR MEDICINE OFFICER: Brian Rosales APRN.NUCLEAR MEDICINE OFFICER Performed by: LOUISA Indications and Patient Condition Preoxygenated: yes Patient position: sniffing Manual In-Line Stabilization: No Difficult Mask: No Indications for airway management: anesthesia anesthesia circuit Method: asleep Cricoid Pressure: Yes Final Airway Details Final airway type: endotracheal airway Final Endotracheal Airway: ETT Cuffed: yes Successful intubation technique: direct laryngoscopy Endotracheal tube insertion site: oral Blade: Ujn Blade size: #3 ETT size (mm): 7.0 Measured from: gums Measurement (cm): 21 Placement verified by: chest auscultation Cormack-Lehane Classification: grade I - full view of glottis Number of attempts at approach: 1 Failed airway: no Unrecognized esophageal intubation: no Airway not difficult SIGNATURE: Brian Rosales APRN.NUCLEAR MEDICINE OFFICER PATIENT NAME: Carina Ham DATE: March 26, 2022 TIME: 3:51 PM CSN: [id number] History of Present illness Narrative* Reema Rice, [...] SPORTS THERAPY PHYSICAL THERAPY TREATMENT NOTE ASSESSMENT: Carina Ham tolerated the session with no issues. She [...] was facilitated with verbal and visual cuing. Self-Detention Management: 1: discussed proper posture and seat [...] 25 Reema Rice PT [facility] History of Present illness Narrative* Reema Rice PT - 03/01/2022 5:05 PM EDT Episode Visit Count: 3 Therapist That Will Oversee The Plan Of Care: Reema Riec PT Start of Care Date: 02/15/22 Onset Date: 01/25/22 (December with back pain from moving at work) Plan of Care Certification Date: 02/15/22 Next Certification Due Date: 03/29/22 Patient Identified by Name and Date of : Yes REHABILITATION AND SPORTS THERAPY PHYSICAL THERAPY TREATMENT NOTE ASSESSMENT: Carina Ham tolerated the session with no issues. She [...] 30 Reema Rice PT [facility] History of Present illness Narrative* Reema Rice PT - 02/22/2022 4:46 PM EDT Episode [...] SPORTS THERAPY PHYSICAL THERAPY TREATMENT NOTE ASSESSMENT: Carina Ham tolerated the session with difficulty with some [...] 30 Reema Rice PT [facility] History of Present illness Narrative* Reema Rice PT - 02/15/2022 12:28 PM EDT Episode [...] PHYSICAL THERAPY EVALUATION PLAN OF CARE: Assessment: Carina Ham presents with diagnosis of left low back [...] Planned: 4 Planned Treatment Interventions: Therapeutic exercise (94800);Neuromuscular re- education (17173);Manual therapy (32977);Self-snf management (40373);Patient/Family/Caregiver Education PLAN FOR NEXT VISIT: Will add TA with arm lifts , marches, standing hamstring curls and hamstring stretch Patient demonstrates good understanding of plan of care and treatment. The above goals and plan of care were discussed and agreed upon by patient/family. 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 * No deformity. * Denies injury. [facility] Work Phone: 1(696) 147-766411-05-2021 History of Present illness Narrative* Laura Watts RRT - 08/18/2021 1:47 PM EDT PULM FUNCTION SMARTBLOCK: Provider: Nubia Barlow MD Assisting Tech: Laura Watts RRT Exhaled Nitric Oxide: 1 System: [id number] [facility] Procedure note* Laura Watts RRT - 08/18/2021 1:47 PM EDT [...] Exhaled Nitric Oxide (ppb) 08/18/2021 14.0 NAME: Laura Watts RRT PATIENT NAME: Carina Ham DATE: August 18, 2021 TIME: 1:47 PM [facility] History of Present illness Narrative* Nubia Barlow MD - 08/18/2021 1:30 PM EDT Images from the original note were not included. . Respiratory Golden Note Patient name: Carina Ham PCP: La eMlendez MD Referring Physician: natalya CC: Shortness of breath HPI: Carina Ham 66 year old female non-smoker with PMH [...] Diagnostic Studies: CT/CTA Chest W/WO Contrast 05/22/21 [facility] IMPRESSION: 1. No acute findings. 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 Pets: Cat FAMILY HISTORY Problem Relation [...] 150/71 Pulse 70 Resp 14 Ht 5' 6.1" (1.68m) Wt 190 lb (86.2kg) SpO2 99% [...] RTC as needed Nubia Barlow MD Respiratory Golden [facility] History of Present illness Narrative* Laura Watts RRT - 08/18/2021 12:53 PM EDT PULM FUNCTION SMARTBLOCK: Provider: Nubia Barlow MD Assisting Tech: Laura Watts RRT Spirometry: 1 System: [id number] [facility] History of Present illness Narrative* History was obtained from patient: Ms. Ham was seen on order from Kacey Patterson [...] of hearing loss * Patient's preferred language: Guamanian * Preferred language of the parent, legal guardian or surrogate decision-maker of this minor or incapacitated patient: Not Applicable * No overt signs of domestic violence/neglect/abuse. * No referral made to Direct Sales Professional. * Pain not interfering with optimal level [...] verbalize recall / understanding and teaching complete. [id number] Work Phone: 1(962) 869-290508-08-2021 History of Present illness Narrative* 65 year old female presenting for /[facility]. spouse dr monte present and gave hx as well * reviewed ER records bw and ct scans w pt and spouse * Was on ER [place] for SOB, chest tightness and bilateral calf [...] denies cough, post nasal drip, nasal congestion. [facility] Work Phone: Evaluation note* Diagnosis SOB (shortness of breath) Shortness of breath [facility] encounter [facility] Diagnosis SOB (shortness of breath) Shortness of breath [facility] [place] [facility]* Diagnosis SOB (shortness of breath)- Primary Shortness of breath Exercise-induced asthma Exercise induced bronchospasm H/O seasonal allergies Other allergy, other than to medicinal agents [facility] this encounter [facility]* Diagnosis Onset Date Resolution Status Chest pain resolved [facility] Work Phone: Evaluation note* Diagnosis Bilateral low back pain without sciatica, unspecified chronicity- Primary documented in this encounter [facility] [place] [facility]* Diagnosis Bilateral low back pain without sciatica, unspecified chronicity- Primary [facility] [place] [facility]* Diagnosis Bilateral low back pain without sciatica, unspecified chronicity- Primary [facility] this encounter [facility] [place] [facility]* Diagnosis Bilateral low back pain without sciatica, unspecified chronicity- Primary documented in this encounter [facility] [place] noteNo assessment information availableWMercy Health Work Phone: Evaluation note* Diagnosis Acute cholecystitis- Primary documented [facility] this encounter [facility] [place] [facility]* Diagnosis Routine general medical examination at a health care facility- Primary Hypothyroidism, unspecified type Asthma, unspecified asthma severity, unspecified whether complicated, unspecified whether persistent documented in this encounter [facility] Work Phone: Evaluation note* Diagnosis Traumatic complete tear of right rotator cuff, subsequent encounter- Primary [facility] [place] [facility]* Diagnosis Traumatic complete tear of right rotator cuff, subsequent encounter- Primary Tendinopathy of right biceps tendon Traumatic complete tear of right rotator cuff, subsequent encounter Tendinopathy of right biceps tendon documented [facility] [place] [facility]* Diagnosis Traumatic incomplete tear of right rotator cuff, subsequent encounter- Primary Hypothyroidism, unspecified type documented in this encounter [facility] Work Phone: Evaluation note* Diagnosis Hypothyroidism, unspecified type- Primary Pre-op examination Preoperative examination, unspecified Traumatic complete tear of right rotator cuff, subsequent encounter Tendinopathy of right biceps tendon Asthma, unspecified asthma severity, unspecified whether complicated, unspecified whether persistent 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 Traumatic complete tear of right rotator cuff, subsequent encounter Tendinopathy of right biceps tendon [facility] [place] [facility]* Diagnosis Traumatic complete tear of right rotator cuff, subsequent encounter- Primary documented [facility] this encounter [facility] [place] [facility]* Diagnosis Traumatic complete tear of right rotator cuff, subsequent encounter- Primary documented [facility] this encounter [facility] [place] [facility]* Diagnosis Traumatic complete tear of right rotator cuff, subsequent encounter- Primary documented [facility] [place] [facility]* Diagnosis Routine general medical examination at a health care facility- Primary Asthma, unspecified asthma severity, unspecified whether complicated, unspecified whether persistent ([facility]) Hypothyroidism, unspecified type Abnormal CBC Other abnormal blood chemistry documented in this encounter [facility] Work Phone: Evaluation note* Diagnosis Traumatic complete tear of right rotator cuff, subsequent encounter- Primary S/P right rotator cuff repair [facility] [place] [facility]* Diagnosis Traumatic complete tear of right rotator cuff, subsequent encounter- Primary documented [facility] [place] [facility]* Diagnosis Traumatic complete tear of right rotator cuff, subsequent encounter- Primary documented [facility] [place] [facility]* Diagnosis Traumatic complete tear of right rotator cuff, subsequent encounter- Primary documented [facility] [place] [facility]* Diagnosis Traumatic complete tear of right rotator cuff, subsequent encounter- Primary documented [facility] [place] [facility]* Diagnosis Traumatic complete tear of right rotator cuff, subsequent encounter- Primary documented [facility] this encounter [facility] [place] [facility]* Diagnosis Traumatic complete tear of right rotator cuff, subsequent encounter- Primary documented [facility] this encounter [facility] [place] [facility]* Diagnosis Traumatic complete tear of right rotator cuff, subsequent encounter- Primary S/P right rotator cuff repair documented [facility] encounter [facility] [place] [facility]* Diagnosis Traumatic complete tear of right rotator cuff, subsequent encounter- Primary documented in this encounter [facility] [place] [facility]* Diagnosis Traumatic complete tear of right rotator cuff, subsequent encounter- Primary documented in this encounter [facility] [place] [facility]* Diagnosis Traumatic complete tear of right rotator cuff, subsequent encounter- Primary documented in this encounter [facility] [place] [facility]* Diagnosis Traumatic complete tear of right rotator cuff, subsequent encounter- Primary documented in this encounter [facility] [place] [facility]* Diagnosis Traumatic complete tear of right rotator cuff, subsequent encounter- Primary documented [facility] this encounter [facility] [place] [facility]* Diagnosis Traumatic complete tear of right rotator cuff, subsequent encounter- Primary S/P right rotator cuff repair documented [facility] [place] [facility]* Diagnosis Hypothyroidism, unspecified type- Primary Pre-op examination Preoperative examination, unspecified Traumatic complete tear of right rotator cuff, subsequent encounter Tendinopathy of right biceps tendon Asthma, unspecified asthma severity, unspecified whether complicated, unspecified whether persistent 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 Traumatic complete tear of right rotator cuff, subsequent encounter- Primary documented [facility] encounter [facility] [place] [facility]* Diagnosis Hypothyroidism, unspecified type- Primary Pre-op examination Preoperative examination, unspecified Traumatic complete tear of right rotator cuff, subsequent encounter Tendinopathy of right biceps tendon Asthma, unspecified asthma severity, unspecified whether complicated, unspecified whether persistent 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 Traumatic complete tear of right rotator cuff, subsequent encounter- Primary documented [facility] this encounter [facility] [place] [facility]* Diagnosis Hypothyroidism, unspecified type- Primary Pre-op examination Preoperative examination, unspecified Traumatic complete tear of right rotator cuff, subsequent encounter Tendinopathy of right biceps tendon Asthma, unspecified asthma severity, unspecified whether complicated, unspecified whether persistent 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- Primary Primary localized osteoarthrosis, pelvic region and thigh documented in this encounter [facility] note* Diagnosis Right shoulder pain, unspecified chronicity Hypothyroidism, unspecified type- Primary Pre-op examination Preoperative examination, unspecified Traumatic complete tear of right rotator cuff, subsequent encounter Tendinopathy of right biceps tendon Asthma, unspecified asthma severity, unspecified whether complicated, unspecified whether persistent 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 documented in this encounter [facility] note* Diagnosis Traumatic complete tear of right rotator cuff, initial encounter Hypothyroidism, unspecified type- Primary Pre-op examination Preoperative examination, unspecified Traumatic complete tear of right rotator cuff, subsequent encounter Tendinopathy of right biceps tendon Asthma, unspecified asthma severity, unspecified whether complicated, unspecified whether persistent 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 documented in this encounter [facility] note* Diagnosis Hypothyroidism, unspecified type- Primary Pre-op examination Preoperative examination, unspecified Traumatic complete tear of right rotator cuff, subsequent encounter Tendinopathy of right biceps tendon Asthma, unspecified asthma severity, unspecified whether complicated, unspecified whether persistent 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 Traumatic complete tear of right rotator cuff, subsequent encounter- Primary documented in this encounter [facility] note* Diagnosis Primary hypothyroidism- Primary Unspecified hypothyroidism Hypothyroidism, unspecified type Asthma, unspecified asthma severity, unspecified whether complicated, unspecified whether persistent ([facility]) Routine general medical examination at a health care facility Abnormal blood chemistry Other abnormal blood chemistry documented in this encounter [facility] Work Phone: Evaluation note* Diagnosis Hypothyroidism, unspecified type- Primary Pre-op examination Preoperative examination, unspecified Traumatic complete tear of right rotator cuff, subsequent encounter Tendinopathy of right biceps tendon Asthma, unspecified asthma severity, unspecified whether complicated, unspecified whether persistent 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 Traumatic complete tear of right rotator cuff, subsequent encounter- Primary documented in this encounter [facility] note* Diagnosis Visit for screening mammogram documented in this encounter [facility] Work Phone: Evaluation note* Diagnosis Dysuria documented in this encounter [facility] Work Phone: Evaluation note* Diagnosis Hypothyroidism, unspecified type- Primary Pre-op examination Preoperative examination, unspecified Traumatic complete tear of right rotator cuff, subsequent encounter Tendinopathy of right biceps tendon Asthma, unspecified asthma severity, unspecified whether complicated, unspecified whether persistent 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- Primary Primary localized osteoarthrosis, pelvic region and thigh Traumatic complete tear of right rotator cuff, subsequent encounter S/P right rotator cuff repair [facility]* Diagnosis Left hip pain- Primary Pain in joint, pelvic region and thigh Left hip pain Pain in joint, pelvic region and thigh documented in this encounter [facility] Work Phone: Evaluation note* Diagnosis Left hip pain Pain in joint, pelvic region and thigh documented in this encounter [facility] Work Phone: Evaluation note* Diagnosis Acute non-recurrent frontal sinusitis- Primary documented in this encounter [facility] Work Phone: Evaluation note* Diagnosis Routine general medical examination at a health care facility- Primary Asthma, unspecified asthma severity, unspecified whether complicated, unspecified whether persistent ([facility]) Hypothyroidism, unspecified type Other fatigue documented in this encounter [facility] Work Phone: History of Present illness Narrative* [...] shopping, housekeeping, etc.). * Falls Risk Screening: CARINA has not fallen in the last 6 [...] unusual joint aches or pains. * Sees veneer glue spreader. * Has some concerns of retinal detachment. * Possibly cataracts. * Following that. * No chest pain, SOB, leg edema, no headaches or dizziness. Exercise tolerance good. * No ear problems. [facility] Work Phone: History of Present illness Narrative* 65 year old female presenting for f/u after cardiology appt. * Was previously in ER in [place] for SOB, chest pain. * Was referred [...] planning a trip in some weeks to [facility]. [facility] Work Phone: History of Present illness Narrative* 65 year old female presenting for f/u after cardiology appt. * Was previously in ER in [place] for SOB, chest pain. * Was referred [...] planning a trip in some weeks to [facility]. [facility] Work Phone: History of Present illness Narrative* 65 year old female presenting for f/u after cardiology appt. * Was previously in ER in [place] for SOB, chest pain. * Was referred [...] planning a trip in some weeks to [facility]. [facility] Work Phone: History of Present illness Narrative* hx 2020 ER visit/ for chest discomfort.. AR..no.. turned out to be asthma related * takes lt4 rx * pcp dr melendez * neck fine * no dysphagia [facility] Work Phone: History of Present illness Narrative* hx 2020 ER visit/ for chest discomfort.. AR..no.. turned out to be asthma related * takes lt4 rx * pcp dr melendez * neck fine * no dysphagia [facility] Work Phone: History of Present illness [...] baseline * has not had cbc recheck [facility] Work Phone: History of Present illness [...] baseline * has not had cbc recheck [facility] Work Phone: History of Present illness NarrativeThis is a 66-year-old female, with complaints one episode of hematuria and symptomatic low blood pressure. She also complains of fever, chills, nausea and vomiting during the weekend. She reports oneliquid evacuation today. Denies dysuria, no increased urinary frequency.[facility] Work Phone: History of Present illness [...] doctor. * Colonoscopy done 2015, goes to [place]. * Due 2025. * s/p gallbladder surgery. [...] No genitourinary issues. * No skin problems. [facility] Work Phone: History of Present illness Narrative* had emma 2021.. had cholecystitis * feels ok now * neck ok * tsh fine 2021 * neck fine * voice fine * had flu shot [facility] Work Phone: History of Present illness Narrative* had emma 2021.. had cholecystitis * feels ok now * neck ok * tsh fine 2021 * neck fine * voice fine * had flu shot [facility] [facility] Work Phone: Reason for referral (narrative)* Outpatient Procedure (Routine) Status Reason Specialty Diagnoses / Procedures Referred By Contact Referred To Contact Pending Review Auto-Generate d Referral [facility] Diagnoses SOB (shortness of breath) Procedures NITRIC OXIDE, EXHALED EXHALED NITRIC OXIDE Nubia Barlow MD [address] [place] [address] [facility] [address] [place] [id number] * Outpatient Procedure (Routine) Status Reason Specialty Diagnoses / Procedures Referred By Contact Referred To Contact Closed Auto-Generated Referral [facility] Diagnoses SOB (shortness of breath) Procedures SPIROMETRY WITH DILATOR IF OBSTRUCTED SPIROMETRY BEFORE/AFTER BRONCHODILATORS Nubia Barlow MD [address] [place] [address] [facility] [address] [place] [id number] [facility] for referral (narrative)* Diagnostic Procedure Only (Routine) - Closed Specialty Diagnoses / Procedures Referred By Contac t Referred To Contact XR IMAGING Diagnoses Right shoulder pain, unspecified chronicity Procedures XR SHOULDER GENERAL 3V OR MORE AP/TRUE AP/OTHER RIGHT RADEX SHOULDER COMPLETE MINIMUM 2 VIEWS Georgia Bedoya, [address] [place] [address] [place] [address] Referral ID Status Reason Start Date Expiration Date V isits Requested Visits Authorized [id number] Closed Auto-Generate d Referral 11/12/2023 12/11/2024 1 1 [facility] for visit Narrative* Diagnostic Procedure Only (Routine) - Closed Specialty Diagnoses / Procedures Referred By Contac t Referred To Contact XR IMAGING Diagnoses Right shoulder pain, unspecified chronicity Procedures XR SHOULDER GENERAL 3V OR MORE AP/TRUE AP/OTHER RIGHT RADEX SHOULDER COMPLETE MINIMUM 2 VIEWS Georgia Bedoya DO [address] [place] [address] [place] [address] Referral ID Status Reason Start Date Expiration Date V isits Requested Visits Authorized [id number] Closed Auto-Generate d Referral 11/12/2023 12/11/2024 1 1 [facility] for visit Narrative* Imaging (Routine) - Authorized Specialty Diagnoses / Procedures Referred By Contac t Referred To Contact Radiology Diagnoses Postmenopausal Procedures XR DEXA bone density La Melendez MD [address] [facility], [address] [address] Phone: tel: fax: Referral ID Status Reason Start Date Expiration Date Visits Requested Visits Authorized [id number] Authorized Perform Procedure 07/22/2024 07/22/2025 1 1 [facility] Work Phone: Reason for visit Narrative* Imaging (Routine) - Authorized Specialty Diagnoses / Procedures Referred By Contac t Referred To Contact Radiology Diagnoses Visit for screening mammogram Procedures BI mammo bilateral screening tomosynthesis La Melendez, MD [address] [facility], [address] [place] [address] Phone: tel: fax: Referral ID Status Reason Start Date Expiration Date Visits Requested Visits Authorized [id number] Authorized Perform Procedure 07/22/2024 07/22/2025 1 1 [facility] Work Phone: Family History No Family History Records Found [...] hypothyroi dism: Sister(V18.19, Z83.49) Status:Active Chief Complaint CARINA HAM is here for a hospital follow-up . ER Janelle for sob, chest tightness and bilateral calf pain.CARINA HAM is here for a follow-up for . cardiology apt.CARINA HAM is here for a follow-up for . cardiology apt.CARINA FATOUMATA is here for a follow-up for . cardiology apt.here for thyroid followup here for thyroid followupCARINA HAM is here for a follow-up for . Medication refills.CARINA HAM is here for a follow-up for . Medication refills.lower back pain that radiates down her leg.dysuria, and abdominal / lower back pain. 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 Advance Directive(s) 03/26/2022 12:25 PM Documents on File Type Date Recorded 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 Healthcare Power of Atty 01/10/2017 Living Will 01/10/2017 Documents on File Type Date Recorded 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 Advance Directives and Living Will 01/11/2017 Healthcare Power of Atty 01/10/2017 Living Will 01/10/2017 Healthcare Agents on File Name Relationship Healthcare Agent Relationshi p Communication Franc Monte Spouse Health Care Agent Advance Directive Response Recorded Date/ Time Living Will No November 03 3:41pm Power of Cloud Engineer No November 03, 2023 3:41pm Healthcare Agents on File Name Relationship Healthcare Agent Relationshi p Communication Franc Monte Spouse Health Care Agent Documents on File Type Date Recorded 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 Layla sharma Healthcare Power of Atty 01/10/2017 Living Will 01/10/2017 Healthcare Agents on File Name Relationship Healthcare Agent Relationshi p Communication Franc Monte Spouse Health Care Agent [id number] (Home) Healthcare Agents on File Name Relationship Healthcare Agent Relationshi p Communication Franc Monte Spouse Health Care Agent [id number] 57 (Home) Healthcare Agents on File Name Relationship Healthcare Agent Relationshi p Communication Franc Monte Spouse Health Care Agent [id number] (Home) Healthcare Agents on File Name Relationship Healthcare Agent Relationshi p Communication Franc Monte Spouse Health Care Agent [id number] 57 (Home) Healthcare Agents on File Name Relationship Healthcare Agent Relationshi p Communication Franc Monte Spouse Health Care Agent [id number] (Home) Healthcare Agents on File Name Relationship Healthcare Agent Relationshi p Communication Franc Monte Spouse Health Care Agent [id number] (Home) Healthcare Agents on File Name Relationship Healthcare Agent Relationshi p Communication Franc Monte Spouse Health Care Agent [id number] (Home) Summary Purpose Reason for Referral Specialty Diagnoses / Procedures Referred By Colton owusu Referred To Contact [facility] Diagnoses Primary osteoarthritis of left hip Procedures CONSULT TO PHYSICAL THERAPY PHYSICAL THERAPY EVALUATION HIGH COMPLEX 45 MINS Georgia Bedoya DO [address] [place] [address] [facility] [place] [address] Referral ID Status Reason Start Date Expiration Date Visits Requested Visits Authorized [id number] Authorized PCP Requested Referral Auto-Generate d Referral 06/24/2024 06/24/2025 99 99 Specialty Diagnoses / Procedures Referred By Colton owusu Referred To Contact MR IMAGING Diagnoses Traumatic complete tear of right rotator cuff, initial encounter Procedures MRI SHOULDER WO IVCON RIGHT MRI ANY JT UPPER EXTREMITY W/O CONTRAST MATRL Aureliano, [place], DO [address] [place] [address] [place] [address] Referral ID Status Reason Start Date Expiration Date V isits Requested Visits Authorized [id number] Closed Auto-Generate d Referral 11/12/2023 12/11/2024 1 1 Specialty Diagnoses / Procedures Referred By Contac t Referred To Contact Radiology Diagnoses Left hip pain Procedures XR hip left with pelvis when performed 2 or 3 views La Melendez MD [address] [facility], [address] [place] [address] Referral ID Status Reason Start Date Expiration Date Visits Requested Visits Authorized [id number] Authorized Perform Procedure 06/16/2024 06/16/2025 1 1 Additional Source Comments Source Comments (unrecognize d section and content) In the event this informatio n is protected by the Federal Confidentiality of Alcohol and Drug Abuse Patient Records regulations: The Federal rules restrict any use of the information to criminally investigate or prosecute any alcohol or drug abuse patient.[facility] the event this information is protected by the Federal Confidentiality of Alcohol and Drug Abuse Patient Records regulations: The Federal rules restrict any use of the information to criminally investigate or prosecute any alcohol or drug abuse patient.[facility] the event this information is protected by the Federal Confidentiality of Alcohol and Drug Abuse Patient Records regulations: The Federal rules restrict any use of the information to criminally investigate or prosecute any alcohol or drug abuse patient.[facility] the event this information is protected by the Federal Confidentiality of Alcohol and Drug Abuse Patient Records regulations: The Federal rules restrict any use of the information to criminally investigate or prosecute any alcohol or drug abuse patient.[facility]In the event this information is protected by the Federal Confidentiality of Alcohol and Drug Abuse Patient Records regulations: The Federal rules restrict any use of the information to criminally investigate or prosecute any alcohol or drug abuse patient.[facility]In the event this information is protected by the Federal Confidentiality of Alcohol and Drug Abuse Patient Records regulations: The Federal rules restrict any use of the information to criminally investigate or prosecute any alcohol or drug abuse patient.[facility]In the event this information is protected by the Federal Confidentiality of Alcohol and Drug Abuse Patient Records regulations: The Federal rules restrict any use of the information to criminally investigate or prosecute any alcohol or drug abuse patient.[facility]In the event this information is protected by the Federal Confidentiality of Alcohol and Drug Abuse Patient Records regulations: The Federal rules restrict any use of the information to criminally investigate or prosecute any alcohol or drug abuse patient.[facility]In the event this information is protected by the Federal Confidentiality of Alcohol and Drug Abuse Patient Records regulations: The Federal rules restrict any use of the information to criminally investigate or prosecute any alcohol or drug abuse patient.[facility]In the event this information is protected by the Federal Confidentiality of Alcohol and Drug Abuse Patient Records regulations: The Federal rules restrict any use of the information to criminally investigate or prosecute any alcohol or drug abuse patient.[facility]In the event this information is protected by the Federal Confidentiality of Alcohol and Drug Abuse Patient Records regulations: The Federal rules restrict any use of the information to criminally investigate or prosecute any alcohol or drug abuse patient.[facility]In the event this information is protected by the Federal Confidentiality of Alcohol and Drug Abuse Patient Records regulations: The Federal rules restrict any use of the information to criminally investigate or prosecute any alcohol or drug abuse patient.[facility]In the event this information is protected by the Federal Confidentiality of Alcohol and Drug Abuse Patient Records regulations: The Federal rules restrict any use of the information to criminally investigate or prosecute any alcohol or drug abuse patient.[facility]In the event this information is protected by the Federal Confidentiality of Alcohol and Drug Abuse Patient Records regulations: The Federal rules restrict any use of the information to criminally investigate or prosecute any alcohol or drug abuse patient.[facility]In the event this information is protected by the Federal Confidentiality of Alcohol and Drug Abuse Patient Records regulations: The Federal rules restrict any use of the information to criminally investigate or prosecute any alcohol or drug abuse patient.[facility] HospitalIn the event this information is protected by the Federal Confidentiality of Alcohol and Drug Abuse Patient Records regulations: The Federal rules restrict any use of the information to criminally investigate or prosecute any alcohol or drug abuse patient.[facility]In the event this information is protected by the Federal Confidentiality of Alcohol and Drug Abuse Patient Records regulations: The Federal rules restrict any use of the information to criminally investigate or prosecute any alcohol or drug abuse patient.[facility] HospitalIn the event this information is protected by the Federal Confidentiality of Alcohol and Drug Abuse Patient Records regulations: The Federal rules restrict any use of the information to criminally investigate or prosecute any alcohol or drug abuse patient.[facility]In the event this information is protected by the Federal Confidentiality of Alcohol and Drug Abuse Patient Records regulations: The Federal rules restrict any use of the information to criminally investigate or prosecute any alcohol or drug abuse patient.[facility] HospitalIn the event this information is protected by the Federal Confidentiality of Alcohol and Drug Abuse Patient Records regulations: The Federal rules restrict any use of the information to criminally investigate or prosecute any alcohol or drug abuse patient.[facility] HospitalIn the event this information is protected by the Federal Confidentiality of Alcohol and Drug Abuse Patient Records regulations: The Federal rules restrict any use of the information to criminally investigate or prosecute any alcohol or drug abuse patient.[facility]In the event this information is protected by the Federal Confidentiality of Alcohol and Drug Abuse Patient Records regulations: The Federal rules restrict any use of the information to criminally investigate or prosecute any alcohol or drug abuse patient.[facility] HospitalIn the event this information is protected by the Federal Confidentiality of Alcohol and Drug Abuse Patient Records regulations: The Federal rules restrict any use of the information to criminally investigate or prosecute any alcohol or drug abuse patient.[facility]In the event this information is protected by the Federal Confidentiality of Alcohol and Drug Abuse Patient Records regulations: The Federal rules restrict any use of the information to criminally investigate or prosecute any alcohol or drug abuse patient.[facility]In the event this information is protected by the Federal Confidentiality of Alcohol and Drug Abuse Patient Records regulations: The Federal rules restrict any use of the information to criminally investigate or prosecute any alcohol or drug abuse patient.[facility]In the event this information is protected by the Federal Confidentiality of Alcohol and Drug Abuse Patient Records regulations: The Federal rules restrict any use of the information to criminally investigate or prosecute any alcohol or drug abuse patient.[facility]In the event this information is protected by the Federal Confidentiality of Alcohol and Drug Abuse Patient Records regulations: The Federal rules restrict any use of the information to criminally investigate or prosecute any alcohol or drug abuse patient.[facility]In the event this information is protected by the Federal Confidentiality of Alcohol and Drug Abuse Patient Records regulations: The Federal rules restrict any use of the information to criminally investigate or prosecute any alcohol or drug abuse patient.[facility] HospitalIn the event this information is protected by the Federal Confidentiality of Alcohol and Drug Abuse Patient Records regulations: The Federal rules restrict any use of the information to criminally investigate or prosecute any alcohol or drug abuse patient.[facility] HospitalIn the event this information is protected by the Federal Confidentiality of Alcohol and Drug Abuse Patient Records regulations: The Federal rules restrict any use of the information to criminally investigate or prosecute any alcohol or drug abuse patient.[facility] HospitalIn the event this information is protected by the Federal Confidentiality of Alcohol and Drug Abuse Patient Records regulations: The Federal rules restrict any use of the information to criminally investigate or prosecute any alcohol or drug abuse patient.[facility] HospitalIn the event this information is protected by the Federal Confidentiality of Alcohol and Drug Abuse Patient Records regulations: The Federal rules restrict any use of the information to criminally investigate or prosecute any alcohol or drug abuse patient.[facility] HospitalIn the event this information is protected by the Federal Confidentiality of Alcohol and Drug Abuse Patient Records regulations: The Federal rules restrict any use of the information to criminally investigate or prosecute any alcohol or drug abuse patient.[facility] HospitalIn the event this information is protected by the Federal Confidentiality of Alcohol and Drug Abuse Patient Records regulations: The Federal rules restrict any use of the information to criminally investigate or prosecute any alcohol or drug abuse patient.[facility] HospitalIn the event this information is protected by the Federal Confidentiality of Alcohol and Drug Abuse Patient Records regulations: The Federal rules restrict any use of the information to criminally investigate or prosecute any alcohol or drug abuse patient.[facility] HospitalIn the event this information is protected by the Federal Confidentiality of Alcohol and Drug Abuse Patient Records regulations: The Federal rules restrict any use of the information to criminally investigate or prosecute any alcohol or drug abuse patient.[facility] HospitalIn the event this information is protected by the Federal Confidentiality of Alcohol and Drug Abuse Patient Records regulations: The Federal rules restrict any use of the information to criminally investigate or prosecute any alcohol or drug abuse patient.[facility] HospitalIn the event this information is protected by the Federal Confidentiality of Alcohol and Drug Abuse Patient Records regulations: The Federal rules restrict any use of the information to criminally investigate or prosecute any alcohol or drug abuse patient.[facility] HospitalIn the event this information is protected by the Federal Confidentiality of Alcohol and Drug Abuse Patient Records regulations: The Federal rules restrict any use of the information to criminally investigate or prosecute any alcohol or drug abuse patient.[facility] HospitalIn the event this information is protected by the Federal Confidentiality of Alcohol and Drug Abuse Patient Records regulations: The Federal rules restrict any use of the information to criminally investigate or prosecute any alcohol or drug abuse patient.[facility] HospitalIn the event this information is protected by the Federal Confidentiality of Alcohol and Drug Abuse Patient Records regulations: The Federal rules restrict any use of the information to criminally investigate or prosecute any alcohol or drug abuse patient.[facility] HospitalIn the event this information is protected by the Federal Confidentiality of Alcohol and Drug Abuse Patient Records regulations: The Federal rules restrict any use of the information to criminally investigate or prosecute any alcohol or drug abuse patient.[facility] HospitalIn the event this information is protected by the Federal Confidentiality of Alcohol and Drug Abuse Patient Records regulations: The Federal rules restrict any use of the information to criminally investigate or prosecute any alcohol or drug abuse patient.[facility] HospitalIn the event this information is protected by the Federal Confidentiality of Alcohol and Drug Abuse Patient Records regulations: The Federal rules restrict any use of the information to criminally investigate or prosecute any alcohol or drug abuse patient.[facility] HospitalIn the event this information is protected by the Federal Confidentiality of Alcohol and Drug Abuse Patient Records regulations: The Federal rules restrict any use of the information to criminally investigate or prosecute any alcohol or drug abuse patient.[facility] HospitalIn the event this information is protected by the Federal Confidentiality of Alcohol and Drug Abuse Patient Records regulations: The Federal rules restrict any use of the information to criminally investigate or prosecute any alcohol or drug abuse patient.[facility] HospitalIn the event this information is protected by the Federal Confidentiality of Alcohol and Drug Abuse Patient Records regulations: The Federal rules restrict any use of the information to criminally investigate or prosecute any alcohol or drug abuse patient.[facility] HospitalIn the event this information is protected by the Federal Confidentiality of Alcohol and Drug Abuse Patient Records regulations: The Federal rules restrict any use of the information to criminally investigate or prosecute any alcohol or drug abuse patient.[facility] HospitalIn the event this information is protected by the Federal Confidentiality of Alcohol and Drug Abuse Patient Records regulations: The Federal rules restrict any use of the information to criminally investigate or prosecute any alcohol or drug abuse patient.[facility] Reason for Visit (unrecogniz ed section and content) Reason Comments PT Discharge Specialty Diagnoses / Procedures Referred By Contac t Referred To Contact Physical Therapy / PHYSICAL THERAPY Diagnoses CONSULT POST OP ROTATOR CUFF TEAR Procedures NEW RS PT ORTH MSK [place] Bedoya, DO [address] [place] [address] Calvin White, PT Referral ID Status Reason Start Date Expiration Date V isits Requested Visits Authorized [id number] Authorized 10/14/2023 10/13/2024 99 99 Reason Comments PT Progress Note Reason Comments Physical Therapy Specialty Diagnoses / Procedures Referred By Contac t Referred To Contact Physical Therapy / PHYSICAL THERAPY Diagnoses low back pain Procedures NEW RS PT SPINE La Melendez MD [address] [address] Reema Rice, PT [address] [place] [address] Referral ID Status Reason Start Date Expiration Date V isits Requested Visits Authorized [id number] Authorized 10/14/2021 10/13/2022 99 99 Reason Comments Spirometry Status Reason Specialty Diagnoses / Procedures Referred By Contact Referred To Contact Pending Review Auto-Generate d Referral [facility] Diagnoses SOB (shortness of breath) Procedures NITRIC OXIDE, EXHALED EXHALED NITRIC OXIDE Nubia Barlow MD [address] [place] [address] [facility] [address] [place] [address] Status Reason Specialty Diagnoses / Procedures Referred By Contact Referred To Contact Closed Auto-Generated Referral [facility] Diagnoses SOB (shortness of breath) Procedures SPIROMETRY WITH DILATOR IF OBSTRUCTED SPIROMETRY BEFORE/AFTER BRONCHODILATORS Nubia Barlow MD [address] [place] [address] [facility] [address] [place] [address] Reason Comments Lung Eval SOB Reason Comments PT Eval Patient Education Reason Comments Post Op Follow Up 03/26 lap emma w/ ch olangiograms Reason Comments Med Refill Blood work results Reason Comments Established Patient Reason Comments surgical clearance EP. Surgical Clearan ce R shoulder. Reason Comments Preparations For Surgery Reason Comments PT Eval Reason Comments Follow-up EP. Follow up. No co ncerns. Reason Comments Follow Up Post Op Reason Comments Post Op Pain Reason Comments Follow Up Pain Specialty Diagnoses / Procedures Referred By Colton owusu Referred To Contact MR IMAGING Diagnoses Traumatic complete tear of right rotator cuff, initial encounter Procedures MRI SHOULDER WO IVCON RIGHT MRI ANY JT UPPER EXTREMITY W/O CONTRAST Georgia Bartlett, DO [address] [place] [address] [id number] Referral ID Status Reason Start Date Expiration Date V isits Requested Visits Authorized [id number] Closed Auto-Generate d Referral 11/12/2023 12/11/2024 1 1 Reason Comments Medicare Annual Wellness Visit Keiko owusu EP. Medicare annual wellness. Labs done. No concerns. Reason Comments UTI EP. Uti. Sat and sun burning with urination and drank 1 bottle of cranberry juice. Saturday night felt a little better and saturday fine and this morning felt like it moved up and not feeling bad now. Reason Comments Follow Up Pain Reason Comments Hip Pain EP. L hip pain for a while and getting less and less mobile. PT moved hip and said there feels like theres bone where there should not be bone. She would like xray. Specialty Diagnoses / Procedures Referred By Colton owusu Referred To Contact Radiology Diagnoses Left hip pain Procedures XR hip left with pelvis when performed 2 or 3 views La Melendez MD [address] [facility] [place] [address] Referral ID Status Reason Start Date Expiration Date Visits Requested Visits Authorized [id number] Authorized Perform Procedure 06/16/2024 06/16/2025 1 1 Reason Comments Cough EP. Cough, congestio n, headache, sore throat for 2 weeks and feeling worse. Grandchildren had cold. Reason Comments Follow-up EP. Follow up hypoth yroid, labs done at [facility] last saturday. Feeling better from uti. No concerns. Goals (unrecognized section and content) Goals may be documented in a n alternate sectionGoals may be documented in an alternate sectionGoals may be documented in an alternate sectionGoals may be documented in an alternate section Care Teams (unrecognized sec tion and content) Senior Reservations Agent Relationship Specialty Start Date End Date La Melendez MD [address] [address] PCP - General Internal Medicine 08/18/21 Senior Reservations Agent Relationship Specialty Start Date End Date La Melendez MD [address] [address] PCP - General Internal Medicine 08/18/21 Senior Reservations Agent Relationship Specialty Start Date End Date La Melendez MD [address] [address] PCP - General Internal Medicine 08/18/21 Senior Reservations Agent Relationship Specialty Start Date End Date La Melendez MD [address] [address] PCP - General Internal Medicine 08/18/21 Senior Reservations Agent Relationship Specialty Start Date End Date La Melendez MD [address] [address] PCP - General Internal Medicine 08/18/21 Senior Reservations Agent Relationship Specialty Start Date End Date La Melendez MD [address] [facility], [facility] [address] [place] [address] PCP - General 08/06/19 La Melendez MD [address] [facility] [address] [place] [address] PCP - [facility] Attributed Provider 10/14/21 Team Status: Active Member Role Status Dates Dr. La Melendez MD Family Provider Active Dr. La Melendez MD Primary Care Provider Active Team Status: Inactive Member Role Status Dates Dr. La Melendez MD Primary Care Provi kraig, Attending Provider, Referring Provider Active Senior Reservations Agent Relationship Specialty Start Date End Date La Melendez MD [address] [facility] [address] [place] [address] PCP - General Internal Medicine 08/18/21 Senior Reservations Agent Relationship Specialty Start Date End Date La Melendez MD [address] [facility] [address] [place] [address] PCP - General Internal Medicine 08/18/21 Senior Reservations Agent Relationship Specialty Start Date End Date La Melendez MD [address] [facility] [address] [place] [address] PCP - General 08/06/19 La Melendez MD [address] [facility] [address] [place] [address] PCP - [facility] Attributed Provider 10/14/21 Senior Reservations Agent Relationship Specialty Start Date End Date La Melendez MD [address] [facility] [address] [place] [address] PCP - General Internal Medicine 08/18/21 Senior Reservations Agent Relationship Specialty Start Date End Date La Melendez MD [address] [facility] [address] [place] [address] PCP - General Internal Medicine 08/18/21 Senior Reservations Agent Relationship Specialty Start Date End Date La Melendez MD [address] [facility] [address] [place] [address] PCP - General Internal Medicine 08/18/21 Senior Reservations Agent Relationship Specialty Start Date End Date La Melendez MD [facility] [address] [facility] [address] [place] [address] PCP - General Internal Medicine 08/18/21 Senior Reservations Agent Relationship Specialty Start Date End Date La Melendez MD [facility] [address] [place] [address] PCP - General Internal Medicine 08/18/21 Senior Reservations Agent Relationship Specialty Start Date End Date La Melendez MD [facility] [address] [facility], [facility] [address] [place] [address] PCP - General 08/06/19 La Melendez MD [address] [facility] [address] [place] [address] PCP - [facility] Attributed Provider 10/14/21 Team Status: Inactive Member Role Status Dates Dr. La Melendez MD Primary Care Provider Active Paul Mc MD Attending Provider, Emergency Provid er Active Senior Reservations Agent Relationship Specialty Start Date End Date La Melendez MD [facility] [address] [facility] [address] [place] [address] PCP - General Internal Medicine 08/18/21 Senior Reservations Agent Relationship Specialty Start Date End Date La Melendez MD [facility] [address] [place] [address] PCP - General Internal Medicine 08/18/21 Senior Reservations Agent Relationship Specialty Start Date End Date La Melendez MD [facility] [address] [place] [address] PCP - General Internal Medicine 08/18/21 Senior Reservations Agent Relationship Specialty Start Date End Date La Melenedz MD [facility] [place] [address] PCP - General Internal Medicine 08/18/21 Senior Reservations Agent Relationship Specialty Start Date End Date La Melendez MD [facility] [address] [place] [address] PCP - General Internal Medicine 08/18/21 Senior Reservations Agent Relationship Specialty Start Date End Date La Melendez MD [facility] [place] [address] PCP - General Internal Medicine 08/18/21 Senior Reservations Agent Relationship Specialty Start Date End Date La Melendez MD [facility] [place] [address] PCP - General Internal Medicine 08/18/21 Senior Reservations Agent Relationship Specialty Start Date End Date La Melendez MD [facility] [place] [address] PCP - General Internal Medicine 08/18/21 Senior Reservations Agent Relationship Specialty Start Date End Date La Melendez MD [facility] [place] [address] PCP - General Internal Medicine 08/18/21 Senior Reservations Agent Relationship Specialty Start Date End Date La Melendez MD [address] [place] [address] PCP - General Internal Medicine 08/18/21 Senior Reservations Agent Relationship Specialty Start Date End Date La Melendez MD [address] [place] [address] PCP - General Internal Medicine 08/18/21 Senior Reservations Agent Relationship Specialty Start Date End Date La Melendez MD [address] [place] [address] PCP - General Internal Medicine 08/18/21 Senior Reservations Agent Relationship Specialty Start Date End Date La Melendez MD [address] [place] [address] PCP - General Internal Medicine 08/18/21 Senior Reservations Agent Relationship Specialty Start Date End Date La Melendez MD [address] [place] [address] PCP - General Internal Medicine 08/18/21 Senior Reservations Agent Relationship Specialty Start Date End Date La Melendez MD [address] [place] [address] PCP - General Internal Medicine 08/18/21 Senior Reservations Agent Relationship Specialty Start Date End Date La Melendez MD [address] [facility] [address] [place] [address] PCP - General 08/06/19 La Melendez MD [address] [facility] [address] [place] [address] PCP - [facility] Attributed Provider 10/14/21 Senior Reservations Agent Relationship Specialty Start Date End Date La Melendez MD [address] [facility] [address] [place] [address] PCP - General 08/06/19 La Melendez MD [address] [facility] [address] [place] [address] PCP - [facility] Attributed Provider 10/14/21 Senior Reservations Agent Relationship Specialty Start Date End Date La Melendez MD [address] [facility] [address] [place] [address] PCP - General 08/06/19 La Melendez MD [address] [facility] [address] [place] [address] PCP - [facility] Attributed Provider 10/14/21 Senior Reservations Agent Relationship Specialty Start Date End Date La Melendez MD [address] [facility] [address] [place] [address] PCP - General 08/06/19 La Melendez MD [address] [facility] [address] [place] [address] PCP - [facility] Attributed Provider 10/14/21 Senior Reservations Agent Relationship Specialty Start Date End Date La Melendez MD [address] [facility] [address] [place] [address] PCP - General 08/06/19 La Melendez MD [address] [facility] [address] [place] [address] PCP - [facility] Attributed Provider 10/14/21 Senior Reservations Agent Relationship Specialty Start Date End Date La Melendez MD [facility] [address] [facility] [address] [place] [address] PCP - General 08/06/19 La Melendez MD [facility] [address] [facility] [address] [place] [address] PCP - [facility] Attributed Provider 10/14/21 Senior Reservations Agent Relationship Specialty Start Date End Date La Melendez MD [facility] [address] [facility] [address] [place] [address] PCP - General 08/06/19 La Melendez MD [facility] [address] [facility] [address] [place] [address] PCP - [facility] Attributed Provider 10/14/21 Senior Reservations Agent Relationship Specialty Start Date End Date La Melendez MD [address] [facility] [address] [place] [address] PCP - General 08/06/19 La Melendez MD [address] [facility] [address] [place] [address] PCP - [facility] Attributed Provider 10/14/21 INFORMATION SOURCE (unrecogn ized section and content) DATE CREATED AUTHOR 04/01/2022 [facility] DATE CREATED AUTHOR AUTHOR'S ORGANIZ ATION 08/11/2022 [facility] DATE CREATED AUTHOR AUTHOR'S ORGANIZ ATION 08/11/2022 [facility] DATE CREATED AUTHOR AUTHOR'S ORGANIZ ATION 08/30/2022 [facility] DATE CREATED AUTHOR AUTHOR'S ORGANIZ ATION 08/31/2024 [facility] DATE CREATED AUTHOR AUTHOR'S ORGANIZ ATION 09/26/2024 [facility] DATE CREATED AUTHOR AUTHOR'S ORGANIZ ATION 02/05/2025 [facility] DATE CREATED AUTHOR AUTHOR'S ORGANIZ ATION 02/05/2025 [facility] DATE CREATED AUTHOR AUTHOR'S ORGANIZ ATION 07/19/2025 [facility] FOR RECORDS PERTAINING TO PATIENTS WHO ARE [...] BE BASED ON THE PRIMARY CLINICAL RECORDS. [employer] provides no warranty or guarantee of the accuracy or completeness of information in this document.
[2025-08-05 10:24] LABS: Hematocrit 42.3 % (37-47); Hemoglobin 14.7 g/dL (12.0-15.0); Immature Granulocytes Count 0.010 X10^3/uL (0.0-0.0); Mean Corp Hgb Conc 34.8 g/dL (32-36); Mean Corpuscular Volume 90.0 fL (81-99); Mean Platelet Vol. 10.6 fl (6.2-12.0); NRBC Flagged by Analyzer 0 % (0-5); Platelet Count 270 K/mm3 (150-450); RBC Distribution Width CV 12.2 % (11.6-14.6); RBC Distribution Width SD 40.3 fl (35.1-43.9); Red Blood Count 4.70 M/mm3 (4.2-5.4); White Blood Count 5.8 K/mm3 (4.4-11.0)
[2025-08-05 11:07] LABS: Cholesterol 208 mg/dL (<=200); Free T3 2.8 pg/mL (2.18-3.98); Low Density Lipoprotein Calc. 129 mg/dL; Triglycerides 87 mg/dL; Very Low Density Lipoprotein 17 mg/dL (5-40); cholesterol:hdl ratio screen 3.25
[2025-08-05 11:17] LABS: AST(SGOT) 34 U/L (<=31); Alanine Aminotransfer ALT/SGPT 64 U/L (<=34); Albumin, Serum 4.3 g/dL (3.4-4.8); Alkaline Phosphatase 66 U/L (35-104); Anion Gap 10 (5-15); BUN 19 mg/dL (4-19); BUN/Creat Ratio 24.3 RATIO (10-20); Calcium,Total 9.7 mg/dL (7.6-11.0); Carbon Dioxide 25.8 mmol/L (21.0-32.0); Chloride 106 mmol/L (98-108); Globulin 2.8 g/dL (2.2-4.2); Glucose 102 mg/dL (70-99); Potassium 4.2 mmol/L (3.3-5.1)
== END | disposition home or self-care (01) ==
LOC: MTLAB 07:13
PROVIDERS: PCP Pediatrics; Referring Provider Pediatrics; Visit Provider Pediatrics
DX: Z00.00 Encounter for general adult medical examination without abnormal findings (principal); E03.9 Hypothyroidism, unspecified; R53.83 Other fatigue
CPT/HCPCS: 36415; 80053; 80061; 84439; 84443; 84481; 85025